=== PATIENT | female | born 1950 | race Asian ===

== ENCOUNTER 2021-08-10 12:53 | Inpatient (IN) ==
[2021-08-10] MEDS ORDERED: PANTOprazole 40 MG in SYRINGE 0 ML IV ONE (15:50)
--- NOTE | 2021-08-10 15:53 | Emergency Department Note ---
Impression & Plan Acute upper gastrointestinal bleeding, Anemia, Abnormal EKG ED Provider Note NAME: AMY ARAGON AGE: 71 SEX: F : 1950 ARRIVES VIA: Walk-In INFORMANT: Patient, the patient's family member ED PROVIDER(S): Binh Graham DO CHIEF COMPLAINT: Dizziness HPI: The patient is a 71-year-old female who presented to the emergency department for an evaluation of dizziness. The patient recently had a colonoscopy. She had an upper and lower endoscopy for work-up of anemia. The patient was scoped by her primary director [employer] 3 days ago. She started noticing dark bowel movements. Over the course the last 24 hours she started noticing worsening of the dark bowel movements as well as dizziness upon standin g. She denies having any chest pain but has had generalized weakness and some dyspnea on exertion. The patient herself denies having any lower extremity swelling or pain. She has no fever. She denies having any abdominal pain or chest pain. She called her primary director [employer] and was referred to the emergency department for further evaluation. ROS: See above HPI for pertinent positives & negatives. A total of 10 systems reviewed and were otherwise negative. PAST MEDICAL HISTORY: See Below PAST SURGICAL HISTORY: See Below FAMILY HISTORY: See Below SOCIAL HISTORY: See Below HOME MEDICATIONS: See Below ALLERGIES: See Below VITALS: See Below PHYSICAL EXAMINATION: GENERAL: Patient is awake alert in no acute distress patient is resting comfortably and showing no signs of anxiety EYES: The conjunctivae are clear. The pupils are round and reactive. EARS, NOSE, MOUTH AND THROAT: The nose is without any evidence of any deformity. Mucous membranes are moist. Tongue is midline. NECK: The neck is nontender and supple. RESPIRATORY: Normal respiratory effort is noted there is no evidence of wheezing rhonchi or rales CARDIOVASCULAR: Regular rate and rhythm noted there no murmurs rubs or gallops normal S1 normal S2. GASTROINTESTINAL: The abdomen is soft and nondistended. There is no tenderness guarding or rigidity. Rectal exam revealed dark stool which was strongly heme positive. MUSCULOSKELETAL/EXTREMITIES: There is no evidence of gross deformity full range of motion is noted in the hips and shoulders. SKIN: There is no obvious evidence of any rash. There are no petechiae, pallor or cyanosis noted. NEUROLOGIC: Patient is awake alert and oriented x3. MEDICAL DECISION MAKING: The patient is a 71-year-old female who presented to the emergency department for an evaluation of black stool. The patient recently had an upper endoscopy as well as a lower endoscopy. She did have some biopsies taken from her upper endoscopy. She started noticing black bowel movements over the course last 24 hours. She is become weak and also having some shortness of breath with exertion. The patient was evaluated by GI in the emergency department. They felt the patient may be suffering from an upper GI bleed. The patient did have black stool which was heme positive. I discussed the patient's laboratory and radiographic studies with her and her daughter. [facility] have agreed to evaluate the patient in the emergency department for further management and disposition. Triage Nursing notes reviewed. Prior medical records reviewed Vital Signs: reviewed and remarkable for no significant abnormalities Differential diagnosis: Diverticulosis, AVM, coagulopathy, colitis, inflammatory bowel disease, malignancy, Michelle-Cat tear, esophagitis, peptic ulcer disease, variceal bleed, gastritis, epistaxis, fissure, hemorrhoids, as well as other pathologies. ER treatment provided: See below Diagnostics interpreted by me: ECG: EKG was obtained in the emergency department. My interpretation is normal sinus rhythm at 67 bpm. There is no ectopy. Diffuse ST segment depressions were noted. No previous tracing was available. Cardiac Monitoring: An order was placed for continuous cardiac monitoring. The monitor shows a rate of 66 bpm with sinus rhythm. Laboratory studies: As stated above and show below. Imaging studies: See below Consultation(s): I discussed this with Maylin who [facility] They will evaluate the patient in the emergency department. Past Med/Surg History Medical History (Updated 08/10/21 @ 18:13 by Leah Hawthorne PA-C) History of anemia History of hyperlipidemia Hypertension Paroxysmal A-fib Surgical History H/O tricuspid valve repair Hx of mitral valve repair Social History Smoking Status: Never smoker Preferred Language: Armenian Feels Safe at Home: Yes Allergies Allergies Allergy/AdvReac Type Severity Reaction Status Date / Time [id number] Allergy Unknown Uncoded 05/29/05 10:08 Home Meds Home Medications Medication Instructions Recorded Confirmed amlodipine 5 mg tablet 5 mg PO QPM 08/10/21 08/10/21 aspirin 81 mg tablet,delayed 81 mg PO QPM 08/10/21 08/10/21 release calcium carbonate 600 mg (1,500 1 cap PO BID 08/10/21 08/10/21 mg)-vitamin D3 500 unit capsule (Calcium 600 with Vitamin D3) cyanocobalamin (vitamin B-12) 500 1,000 mcg PO DAILY 08/10/21 08/10/21 mcg tablet (Vitamin B-12) magnesium 100 mg tablet 100 mg PO DAILY 08/10/21 08/10/21 metoprolol succinate 25 mg 25 mg PO BID 08/10/21 08/10/21 tablet,extended release 24 hr ramipril 10 mg capsule 10 mg PO BID 08/10/21 08/10/21 Results & Data (ED) Vital Signs Vital Signs - 24 hr 08/10/21 13:22 08/10/21 16:16 08/10/21 17:00 Temperature 36.9 C Temperature Source Oral Pulse Rate 82 68 Pulse Rate [Apical] 66 Pulse Rate from SpO2 Sensor 70 Respiratory Rate 18 14 19 Respiratory Effort / Characteristics Non-Labored Respiratory Depth Normal Respiratory Pattern Regular Blood Pressure 131/88 139/86 Blood Pressure [Left Arm] 140/74 Blood Pressure Mean 102 103 Blood Pressure Mean [Left Arm] 96 Blood Pressure Position [Left Arm] Lying Pulse Oximetry 100 99 99 Oxygen Delivery Method Room Air Room Air Room Air Sepsis Recent Fever Within 48 Hours No Sepsis New/Unexplained Change in Mental Status No Sepsis Action Taken by Nursing No Action Required Home Medications Current Medication List: was personally reviewed by me Laboratory Data Attestation: I reviewed the patient's lab results. Result diagrams: 08/10/21 16:09 08/10/21 16:09 Lab Results 08/10/21 08/10/21 08/10/21 Range/Units 16: 16:09 16:09 WBC (4.8-10.8) K/uL RBC (4.2-5.4) M/uL Hgb (12.0-16.0) g/dL Hct (37-47) % MCV (80-100) fL MCH (25-34) pg MCHC (32-36) g/dL RDW Std Deviation (36.4-46.3) fL RDW Coeff of Nalini (11.5-14.5) % Plt Count (130-400) K/uL MPV (7.4-10.4) fL Immature Gran % (Auto) % Neut % (Auto) % Lymph % (Auto) % [place] % (Auto) % Eos % (Auto) % Baso % (Auto) % Neut # (Auto) (1.4-6.5) K/uL Lymph # (Auto) (1.2-3.4) K/uL [place] # (Auto) (0.11-0.59) K/uL Eos # (Auto) (0-0.5) K/uL Baso # (Auto) (0-0.2) K/uL Immature Gran # (Auto) (0.00-0.02) K/uL PT 10.3 (9.0-12.0) Seconds INR 1.0 (0.9-1.1) APTT 30.4 (21.0-31.0) Seconds PTT Ratio 1.2 Sodium 134 L (136-145) mmol/L Potassium 4.2 (3.5-5.1) mmol/L Chloride 101 (98-107) mmol/L Carbon Dioxide 27 (21-32) mmol/L Anion Gap 6.0 (3-11) BUN 14 (7-18) mg/dl Creatinine 0.59 L (0.6-1.2) mg/dl Est Cr Clr Drug Dosing 76.6 ml/min Est GFR ( Amer) 107.6 ml/min Est GFR (Non-Af Amer) 92.9 ml/min BUN/Creatinine Ratio 24.2 H (10-20) Glucose 100 H (70-99) mg/dl Calcium 9.2 (8.5-10.1) mg/dl Magnesium 2.0 (1.8-2.4) mg/dl Total Bilirubin 0.1 L (0.2-1) mg/dl AST 20 (15-37) U/L ALT 23 (12-78) U/L Alkaline Phosphatase 70 (45-117) U/L Total Protein 7.6 (6.4-8.2) gm/dl Albumin 2.9 L (3.4-5.0) gm/dl Globulin 4.7 H (2.5-4.0) gm/dl Albumin/Globulin Ratio 0.6 L (0.9-2) TSH 1.700 (0.300-4.500) uIu/ml Urine Color Urine Appearance (Clear) Urine pH (4.5-7.5) Ur Specific [place] (1.000-1.030) Urine Protein (Negative) Urine Glucose (UA) (Negative) Urine Ketones (Negative) Urine Blood (Negative) Urine Nitrite (Negative) Urine Bilirubin (Negative) Urine Urobilinogen (Negative) Ur Leukocyte Esterase (Negative) COVID-19 Eval Order SARS-CoV-2 (PCR) (Negative) Blood Type O Positive Antibody Screen NEGATIVE 08/10/21 08/10/21 08/10/21 Range/Units 16:09 16:19 16:19 WBC 5.08 (4.8-10.8) K/uL RBC 2.66 L (4.2-5.4) M/uL Hgb 8.1 L (12.0-16.0) g/dL Hct 24.6 L (37-47) % MCV 92.5 (80-100) fL MCH 30.5 (25-34) pg MCHC 32.9 (32-36) g/dL RDW Std Deviation 44.5 (36.4-46.3) fL RDW Coeff of Nalini 13.1 (11.5-14.5) % Plt Count 160 (130-400) K/uL MPV 9.7 (7.4-10.4) fL Immature Gran % (Auto) 0.2 % Neut % (Auto) 58.2 % Lymph % (Auto) 32.3 % [place] % (Auto) 7.3 % Eos % (Auto) 1.8 % Baso % (Auto) 0.2 % Neut # (Auto) 2.96 (1.4-6.5) K/uL Lymph # (Auto) 1.64 (1.2-3.4) K/uL [place] # (Auto) 0.37 (0.11-0.59) K/uL Eos # (Auto) 0.09 (0-0.5) K/uL Baso # (Auto) 0.01 (0-0.2) K/uL Immature Gran # (Auto) 0.01 (0.00-0.02) K/uL PT (9.0-12.0) Seconds INR (0.9-1.1) APTT (21.0-31.0) Seconds PTT Ratio Sodium (136-145) mmol/L Potassium (3.5-5.1) mmol/L Chloride (98-107) mmol/L Carbon Dioxide (21-32) mmol/L Anion Gap (3-11) BUN (7-18) mg/dl Creatinine (0.6-1.2) mg/dl Est Cr Clr Drug Dosing ml/min Est GFR ( Amer) ml/min Est GFR (Non-Af Amer) ml/min BUN/Creatinine Ratio (10-20) Glucose (70-99) mg/dl Calcium (8.5-10.1) mg/dl Magnesium (1.8-2.4) mg/dl Total Bilirubin (0.2-1) mg/dl AST (15-37) U/L ALT (12-78) U/L Alkaline Phosphatase (45-117) U/L Total Protein (6.4-8.2) gm/dl Albumin (3.4-5.0) gm/dl Globulin (2.5-4.0) gm/dl Albumin/Globulin Ratio (0.9-2) TSH (0.300-4.500) uIu/ml Urine Color Yellow Urine Appearance Clear (Clear) Urine pH 5.5 (4.5-7.5) Ur Specific [place] 1.006 (1.000-1.030) Urine Protein Negative (Negative) Urine Glucose (UA) Negative (Negative) Urine Ketones Negative (Negative) Urine Blood Negative (Negative) Urine Nitrite Negative (Negative) Urine Bilirubin Negative (Negative) Urine Urobilinogen Negative (Negative) Ur Leukocyte Esterase Negative (Negative) COVID-19 Eval Order Covid19 at [facility] SARS-CoV-2 (PCR) (Negative) Blood Type Antibody Screen 08/10/21 Range/Units 16:19 WBC (4.8-10.8) K/uL RBC (4.2-5.4) M/uL Hgb (12.0-16.0) g/dL Hct (37-47) % MCV (80-100) fL MCH (25-34) pg MCHC (32-36) g/dL RDW Std Deviation (36.4-46.3) fL RDW Coeff of Nalini (11.5-14.5) % Plt Count (130-400) K/uL MPV (7.4-10.4) fL Immature Gran % (Auto) % Neut % (Auto) % Lymph % (Auto) % [place] % (Auto) % Eos % (Auto) % Baso % (Auto) % Neut # (Auto) (1.4-6.5) K/uL Lymph # (Auto) (1.2-3.4) K/uL [place] # (Auto) (0.11-0.59) K/uL Eos # (Auto) (0-0.5) K/uL Baso # (Auto) (0-0.2) K/uL Immature Gran # (Auto) (0.00-0.02) K/uL PT (9.0-12.0) Seconds INR (0.9-1.1) APTT (21.0-31.0) Seconds PTT Ratio Sodium (136-145) mmol/L Potassium (3.5-5.1) mmol/L Chloride (98-107) mmol/L Carbon Dioxide (21-32) mmol/L Anion Gap (3-11) BUN (7-18) mg/dl Creatinine (0.6-1.2) mg/dl Est Cr Clr Drug Dosing ml/min Est GFR ( Amer) ml/min Est GFR (Non-Af Amer) ml/min BUN/Creatinine Ratio (10-20) Glucose (70-99) mg/dl Calcium (8.5-10.1) mg/dl Magnesium (1.8-2.4) mg/dl Total Bilirubin (0.2-1) mg/dl AST (15-37) U/L ALT (12-78) U/L Alkaline Phosphatase (45-117) U/L Total Protein (6.4-8.2) gm/dl Albumin (3.4-5.0) gm/dl Globulin (2.5-4.0) gm/dl Albumin/Globulin Ratio (0.9-2) TSH (0.300-4.500) uIu/ml Urine Color Urine Appearance (Clear) Urine pH (4.5-7.5) Ur Specific [place] (1.000-1.030) Urine Protein (Negative) Urine Glucose (UA) (Negative) Urine Ketones (Negative) Urine Blood (Negative) Urine Nitrite (Negative) Urine Bilirubin (Negative) Urine Urobilinogen (Negative) Ur Leukocyte Esterase (Negative) COVID-19 Eval Order SARS-CoV-2 (PCR) NEGATIVE (Negative) Blood Type Antibody Screen Administered Medications Discontinued Medications Pantoprazole Sodium 40 mg/ (Syringe) 10 mls @ 5 mls/min IV NOW ONE Stop: 08/10/21 15:51 Last Admin: 08/10/21 16:29 Dose: 5 mls/min Documented by: [id number] Imaging Data Radiologist's Impression: Chest X-Ray 08/10/21 15:31 XR chest 1V portable HISTORY: weakness COMPARISON: None. FINDINGS: No focal lung consolidations to suggest pneumonia. No evidence for pulmonary edema. No pleural effusions. No pneumothorax. The cardiac silhouette is moderately enlarged. Poststernotomy changes and cardiac valve prostheses are noted. IMPRESSION: Moderate enlargement of the cardiac silhouette. Otherwise, no acute process within the chest. ACT 112: Negative or not required by law. Electronically signed by: Reed Rhodes M.D. 08/10/2021 3:58 PM Discharge Plan Visit Data Chief Complaint: GI Bleed Stated Complaint: GI BLEEDING ED Provider: Binh Graham Discharge Problem: Acute upper gastrointestinal bleeding, Anemia, Abnormal EKG Patient Disposition: Admitted As Inpatient Condition: Good Discharge Instructions Interventions: ED Discharge Assessment Last Done: 08/10/21 21:08 Discharge Problem: Anemia Qualifiers: Anemia type: unspecified type Qualified Code(s): D64.9 - Anemia, unspecified
--- NOTE | 2021-08-10 15:59 | XRay Report ---
XR chest 1V portable HISTORY: weakness COMPARISON: None. FINDINGS: No focal lung consolidations to suggest pneumonia. No evidence for pulmonary edema. No pleu ral effusions. No pneumothorax. The cardiac silhouette is moderately enlarged. Poststernotomy changes and cardiac valve prostheses are noted. IMPRESSION: Moderate enlargement of the cardiac silhouette. Otherwise, no acute process within the chest. ACT 112: Negative or not required by law. Electronically signed by: Reed Rhodes M.D. 08/10/2021 3:58 PM
--- NOTE | 2021-08-10 16:16 | Gastrointestinal Consultation ---
Date of Consultation August 10, 2021 Assessment & Plan (1) Black stool: This is a 71 y/o female who recently underwent bidirectional endoscopy in evaluation of normocytic anemia; had gastric/duodenal bx; though scopes were endoscopically normal. She's had small black stools several times per day since then along with new-onset dizziness. Curently awaiting lab, imaging in the ER. Hemodynamically stable on exam with soft abd. No active GIB at present. - Check CBC, BMP - Trend H&H, transfuse PRN - Monitor and document GI output. - NPO after midnight - Would start IV PPI - If H&H has dropped, will pursue endoscopy tomorrow to evaluate for UGI source Thank you for allowing us to participate in the care of this patient. Please call with any acute changes, questions or concerns. Please see addendum below with additional recommendation from my supervising physician. Supervising Physician Co-Signing Physician Notes I performed a history and physical examination of the patient today, including specifically on physical exam - soft abdomen. I have discussed the patient's management with the advanced practitioner. Please refer to the nurse practitioner's note for the documented findings and plan of care. Melena post recent EGD, awaiting CBD to evaluate acuity. Anyway, would benefit from observation overnight. IV PPI for now. History of Present Illness Reason for Consultation: melena Requesting Physician: Dr. Graham History of Present Illness This is a 71 y/o female with with PAF, HTN, history of mitral and tricuspid valve repair, HLD and others who underwent birdirectional endoscopy on 08/07 for anemia (HGB 11, normocytic on 05/2021; had been 11 back in 2018 as well). These were endoscopically unremarkable, and pt had gastric/duodenal bx. That evening she states she had a small black mushy stool; and since then has had several small mushy black stools per day. She called our office and was directed to the ER. She's also developed dizziness when up walking around; this is new for her. Last black stool was this AM. Typically stools are brown. She is on oral iron; had stopped it prior to scopes. I can't find where iron studies had been done. Takes daily baby ASA. No other AC, no NSAIDs, tobacco or ETOH use. Currently awaiting lab, imaging studies in the ER. Denies abd pain, n/v, hematemesis, hematochezia, abd burning, cramping, CP, SOB, cough, fever, leg edema. She's been eating and drinking normally. EGD 08/07/21: - Normal upper third of esophagus, middle third of esophagus and lower third of esophagus. - Z-line regular, 40 cm from the incisors. - Normal stomach. Biopsied. - Normal examined duodenum. Biopsied. Colonoscopy 08/07/21: A tattoo was seen in the rectum. - No specimens collected. - Otherwise normal to the terminal ileum, with retroflexed views of the ascending colon and rectum. A. Duodenum, biopsy: Duodenal mucosa with mildly increased intraepithelial lymphocytes (see comment). B. Stomach, biopsy: Antral mucosa with mild chronic inflammation and mild reactive changes. Negative for H. pylori by immunohistochemistry. Comment: A. No apparent villous blunting is noted. The finding is mild and may be nonspecific, or associated with a subtle form of food/nutrition intolerance, drug reaction or other conditions. Clinical and endoscopic correlation is recommended. Allergies Allergy/AdvReac Type Severity Reaction Status Date / Time [id number] Allergy Unknown Uncoded 05/29/05 10:08 Patient History Medical History (Updated 08/10/21 @ 16:13 by Isabella Palacios PA-C) History of anemia History of hyperlipidemia Hypertension Surgical History H/O tricuspid valve repair Hx of mitral valve repair Social History Smoking Status: Never smoker Preferred Language: Salvadorean Feels Safe at Home: Yes Review of Systems Review of Systems: A complete review of systems was performed and negative except as noted in HPI. Physical Exam Constitutional: WD/WN, vitals as above Eyes: sclera anicteric Respiratory: normal respiratory effort, lungs clear to auscultation Cardiovascular: RRR, no murmur, no edema Gastrointestinal (Abdomen): normal bowel sounds, soft, nontender, no hepatosplenomegaly Skin: no rashes, warm and dry Psychiatric: A+Ox3, euthymic affect Results & Data ([facility]) Vital Signs (Past 12 Hours) Vital Signs Temp Pulse Resp BP Pulse Ox 08/10/21 13:22 36.9 C 82 18 131/88 100
[2021-08-10 16:23] LABS: Basophils # (auto) 0.01 K/uL (0-0.2); Basophils % (auto) 0.2 %; Eosinophils # (auto) 0.09 K/uL (0-0.5); Eosinophils % (auto) 1.8 %; Hematocrit (blood only) 24.6 % (37-47); Hemoglobin 8.1 g/dL (12.0-16.0); Immature Granulocytes # (auto) 0.01 K/uL (0.00-0.02); Immature Granulocytes % (auto) 0.2 %; Lymphocytes # (auto) 1.64 K/uL (1.2-3.4); Lymphocytes % (auto) 32.3 %; Mean Corpuscular Hemoglobin 30.5 pg (25-34); Mean Corpuscular Hgb Conc 32.9 g/dL (32-36); Mean Corpuscular Volume 92.5 fL (80-100); Mean Platelet Volume 9.7 fL (7.4-10.4); Monocytes # (auto) 0.37 K/uL (0.11-0.59); Monocytes % (auto) 7.3 %; Neutrophils # (auto) 2.96 K/uL (1.4-6.5); Neutrophils % (auto) 58.2 %; Platelet Count 160 K/uL (130-400); RDW Coefficient of Variation 13.1 % (11.5-14.5); RDW Standard Deviation 44.5 fL (36.4-46.3); Red Blood Count 2.66 M/uL (4.2-5.4); White Blood Count 5.08 K/uL (4.8-10.8)
[2021-08-10 16:35] LABS: Partial Thromboplastin Ratio 1.2; Partial Thromboplastin Time 30.4 Seconds (21.0-31.0); Prothrombin Time 10.3 Seconds (9.0-12.0)
[2021-08-10 16:42] LABS: Appearance Urine Clear (Clear); Bilirubin Urine Negative (Negative); Blood Urine Negative (Negative); Color Urine Yellow; Glucose Urine UA Negative (Negative); Ketones Urine Negative (Negative); Leukocyte Esterase Urine Negative (Negative); Nitrite Urine Negative (Negative); Protein Urine Negative (Negative); Specific Gravity Urine 1.006 (1.000-1.030); Urobilinogen Urine Negative (Negative); pH Urine 5.5 (4.5-7.5)
[2021-08-10 16:52] LABS: Albumin Level 2.9 gm/dl (3.4-5.0); BUN Creatinine Ratio 24.2 (10-20); Calcium 9.2 mg/dl (8.5-10.1); Creatinine Clr Calc Pharmacy 76.6 ml/min; Est GFR (African American) 107.6 ml/min; Est GFR (Non-African American) 92.9 ml/min; Potassium 4.2 mmol/L (3.5-5.1)
[2021-08-10 17:03] LABS: Albumin Globulin Ratio 0.6 (0.9-2); Bilirubin,Total 0.1 mg/dl (0.2-1); Globulin 4.7 gm/dl (2.5-4.0); Thyroid Stimulating Hormone 1.7 uIu/ml (0.300-4.500); Total Protein 7.6 gm/dl (6.4-8.2)
--- NOTE | 2021-08-10 17:54 | History & Physical Report ---
Date of Service August 10, 2021 Assessment & Plan (1) Acute upper gastrointestinal bleeding: Plan: Three days of black stools since EGD/Colonoscopy on Saturday with drop in Hgb from 11 to 8.1 with associated dizziness. - Appreciate GI input - tentative plan for EGD tomorrow but defer to their evaluation in AM - IV pantoprazole - Recheck H&H at midnight - if continuing to drop, pt may need transfusion. - NPO in anticipation of potential scope - Hold aspirin for now (2) Anemia: Plan: see plan for #1 - worsening of chronic anemia since EGD/colonoscopy - Follow labs for stability (3) Hypertension: Plan: Resume home regimen with holds and monitor closely. Plan: Pt seen and reviewed with collaborating physician, Dr. Uriarte. Plan of care discussed and as outlined above. Code Status: Full code DVT Prophylaxis: SCDs Rochelle Hawthorne PA-C History of Present Illness Chief Complaint: Black stools Primary Care Provider: Zuleima Garcia MD This is a 71 y/o female with a PMH of iron deficiency anemia, HTN, PAF, and prior tricuspid valve repair who presents to the ED today with black stools x 3 days. Three days ago, on 08/07, pt underwent EGD and Colonoscopy as part of work-up for iron deficiency anemia, which pt reports is long-standing (5 years). She was taking iron supplement until it was held for the recent procedures - she has not resumed it yet post-scopes. By Saturday night (same day of scopes), she started with small-volume semi-formed black stools, which have continued for the past three days, usually ~4x/day. No hematochezia. She denies associated abdominal pain, N/V, loss of appetite, heartburn or indigestion. She has noted new-onset dizziness since the procedure that is worse with position changes. She denies chest pain, palpitations, shortness of breath/[place], fevers, chills, sweats. EGD 08/07/21: - Normal upper third of esophagus, middle third of esophagus and lower third of esophagus. - Z-line regular, 40 cm from the incisors. - Normal stomach. Biopsied. - Normal examined duodenum. Biopsied. Colonoscopy 08/07/21: A tattoo was seen in the rectum. - No specimens collected. - Otherwise normal to the terminal ileum, with retroflexed views of the ascending colon and rectum. A. Duodenum, biopsy: Duodenal mucosa with mildly increased intraepithelial lymphocytes (see comment). B. Stomach, biopsy: Antral mucosa with mild chronic inflammation and mild reactive changes. Negative for H. pylori by immunohistochemistry. Comment: A. No apparent villous blunting is noted. The finding is mild and may be nonspecific, or associated with a subtle form of food/nutrition intolerance, drug reaction or other conditions. Clinical and endoscopic correlation is recommended. Allergies Allergy/AdvReac Type Severity Reaction Status Date / Time [id number] Allergy Unknown Uncoded 05/29/05 10:08 Home Medications Medication Instructions Recorded Confirmed Type amlodipine 5 mg tablet 5 mg PO QPM 08/10/21 08/10/21 History aspirin 81 mg tablet,delayed 81 mg PO QPM 08/10/21 08/10/21 History release calcium carbonate 600 mg (1,500 1 cap PO BID 08/10/21 08/10/21 History mg)-vitamin D3 500 unit capsule (Calcium 600 with Vitamin D3) cyanocobalamin (vitamin B-12) 500 1,000 mcg PO DAILY 08/10/21 08/10/21 History mcg tablet (Vitamin B-12) magnesium 100 mg tablet 100 mg PO DAILY 08/10/21 08/10/21 History metoprolol succinate 25 mg 25 mg PO BID 08/10/21 08/10/21 History tablet,extended release 24 hr ramipril 10 mg capsule 10 mg PO BID 08/10/21 08/10/21 History Past Med/Surg History Medical History History of anemia History of hyperlipidemia Hypertension Paroxysmal A-fib Surgical History H/O tricuspid valve repair Hx of mitral valve repair Social History Smoking Status: Never smoker Second Hand Exposure: No; Do You Dip or Chew Tobacco: No; Hx Alcohol Use: No Hx Substance Use: No Preferred Language: Tamil Communication Ability: Effective 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 Beliefs That Will Affect Care: None Current Living Situation: Family Current Living Situation Comment: Daughter and granddaughter Other Information That Helps Us Care for You: No Feels Safe at Home: Yes Safety Concerns: Feels Safe At This Time Assistive Devices: None Review of Systems Review of Systems: All systems reviewed & are unremarkable except as noted in HPI & below Constitutional: + fatigue; no fever, no chills and no anorexia Eyes: no diplopia Ear, Nose, Mouth, Throat: no nasal congestion, no nasal discharge and no sore throat Respiratory: no cough, no dyspnea, no hemoptysis and no wheezing Cardiovascular: + lightheadedness; no chest pain, no palpitations, no syncope and no edema Gastrointestinal: as per Subjective / HPI Genitourinary: no dysuria and no hematuria Musculoskeletal: no back pain and no neck pain Integumentary: no rash and no skin ulcer Neurologic: + generalized weakness, + dizziness and + headache(s) (mild intermittent); no falls Psychiatric: + anxiety; no depression Physical Exam Constitutional: + thin; no acute distress Eyes: + anicteric sclerae Neck: trachea midline Respiratory: no respiratory distress and does not use accessory muscles Auscultation: lungs clear to auscultation bilaterally and + rhonchi; no rales and no wheezes Cardiovascular: Rate/Rhythm: regular rate and regular rhythm Heart Sounds: + murmur; no gallop and no cardiac rub Vessels: dorsalis pedis pulses present and radial pulses present Extremities: no calf tenderness and no pedal edema Gastrointestinal (Abdomen): Inspection/Auscultation: normal bowel sounds; abdomen not distended Percussion/Palpation: abdomen soft; abdomen nontender and no guarding Musculoskeletal: Head/Neck/Chest: normocephalic, head atraumatic and neck supple Skin: no rashes and no jaundice Neurologic: moves all extremities; no focal motor deficits Psychiatric: A+Ox3, euthymic affect Results & Data Results & Data ([facility]) Vital Signs (Past 12 Hours) Vital Signs Temp Pulse Pulse Resp BP BP Pulse Ox 08/10/21 16:16 66 14 140/74 99 08/10/21 13:22 36.9 C 82 18 131/88 100 Laboratory Results Laboratory Results - last 24 hr 08/10/21 08/10/21 08/10/21 16:09 16:09 16:09 WBC RBC Hgb Hct MCV MCH MCHC RDW Std Deviation RDW Coeff of Nalini Plt Count MPV Immature Gran % (Auto) Neut % (Auto) Lymph % (Auto) [place] % (Auto) Eos % (Auto) Baso % (Auto) Neut # (Auto) Lymph # (Auto) [place] # (Auto) Eos # (Auto) Baso # (Auto) Immature Gran # (Auto) PT 10.3 INR 1.0 APTT 30.4 PTT Ratio 1.2 Sodium 134 L Potassium 4.2 Chloride 101 Carbon Dioxide 27 Anion Gap 6.0 BUN 14 Creatinine 0.59 L Est Cr Clr Drug Dosing 76.6 Est GFR ( Amer) 107.6 Est GFR (Non-Af Amer) 92.9 BUN/Creatinine Ratio 24.2 H Glucose 100 H Calcium 9.2 Magnesium 2.0 Total Bilirubin 0.1 L AST 20 ALT 23 Alkaline Phosphatase 70 Total Protein 7.6 Albumin 2.9 L Globulin 4.7 H Albumin/Globulin Ratio 0.6 L TSH 1.700 Urine Color Urine Appearance Urine pH Ur Specific [place] Urine Protein Urine Glucose (UA) Urine Ketones Urine Blood Urine Nitrite Urine Bilirubin Urine Urobilinogen Ur Leukocyte Esterase COVID-19 Eval Order SARS-CoV-2 (PCR) Blood Type O Positive Antibody Screen NEGATIVE 08/10/21 08/10/21 08/10/21 16:09 16:19 16:19 WBC 5.08 RBC 2.66 L Hgb 8.1 L Hct 24.6 L MCV 92.5 MCH 30.5 MCHC 32.9 RDW Std Deviation 44.5 RDW Coeff of Nalini 13.1 Plt Count 160 MPV 9.7 Immature Gran % (Auto) 0.2 Neut % (Auto) 58.2 Lymph % (Auto) 32.3 [place] % (Auto) 7.3 Eos % (Auto) 1.8 Baso % (Auto) 0.2 Neut # (Auto) 2.96 Lymph # (Auto) 1.64 [place] # (Auto) 0.37 Eos # (Auto) 0.09 Baso # (Auto) 0.01 Immature Gran # (Auto) 0.01 PT INR APTT PTT Ratio Sodium Potassium Chloride Carbon Dioxide Anion Gap BUN Creatinine Est Cr Clr Drug Dosing Est GFR ( Amer) Est GFR (Non-Af Amer) BUN/Creatinine Ratio Glucose Calcium Magnesium Total Bilirubin AST ALT Alkaline Phosphatase Total Protein Albumin Globulin Albumin/Globulin Ratio TSH Urine Color Yellow Urine Appearance Clear Urine pH 5.5 Ur Specific [place] 1.006 Urine Protein Negative Urine Glucose (UA) Negative Urine Ketones Negative Urine Blood Negative Urine Nitrite Negative Urine Bilirubin Negative Urine Urobilinogen Negative Ur Leukocyte Esterase Negative COVID-19 Eval Order Covid19 at [facility] SARS-CoV-2 (PCR) Blood Type Antibody Screen 08/10/21 16:19 WBC RBC Hgb Hct MCV MCH MCHC RDW Std Deviation RDW Coeff of Nalini Plt Count MPV Immature Gran % (Auto) Neut % (Auto) Lymph % (Auto) [place] % (Auto) Eos % (Auto) Baso % (Auto) Neut # (Auto) Lymph # (Auto) [place] # (Auto) Eos # (Auto) Baso # (Auto) Immature Gran # (Auto) PT INR APTT PTT Ratio Sodium Potassium Chloride Carbon Dioxide Anion Gap BUN Creatinine Est Cr Clr Drug Dosing Est GFR ( Amer) Est GFR (Non-Af Amer) BUN/Creatinine Ratio Glucose Calcium Magnesium Total Bilirubin AST ALT Alkaline Phosphatase Total Protein Albumin Globulin Albumin/Globulin Ratio TSH Urine Color Urine Appearance Urine pH Ur Specific [place] Urine Protein Urine Glucose (UA) Urine Ketones Urine Blood Urine Nitrite Urine Bilirubin Urine Urobilinogen Ur Leukocyte Esterase COVID-19 Eval Order SARS-CoV-2 (PCR) NEGATIVE Blood Type Antibody Screen Diagnostic Findings Chest X-ray 08/10/21 - IMPRESSION: Moderate enlargement of the cardiac silhouette. Otherwise, no acute process within the chest. Medications Administered Discontinued Medications Pantoprazole Sodium 40 mg/ (Syringe) 10 mls @ 5 mls/min IV NOW ONE Stop: 08/10/21 15:51 Last Admin: 08/10/21 16:29 Dose: 5 mls/min Documented by: [id number] Code Status & VTE Plan VTE Prophylaxis Plan VTE Prophylaxis will be ordered: Yes Supervising Physician Co-Signing Physician Notes Pt seen and examined by me, care coordinated with Rochelle Hawthorne PA-C, pls refer to her note above for further detail. Pt is a 71 y/o female w/ hx of iron deficiency anemia, HTN, PAF, and prior tricuspid valve repair who presents with black stools x 3 days, s/p EGD and colonoscopy on 08/07. She has noted new-onset dizziness since the procedure that is worse with position changes. She denies chest pain, palpitations, shortness of breath/[place], fevers, chills, sweats. Pt is laying in bed in NAD, however appears quite fatigued. She is thin, alert and able to answer questions appropriately. Lung sounds CTAB, heart sounds regular. Abdomen is soft, + bowel sounds, nontender to palpation. There is no LE edema and pt is moving extremities spontaneously. Skin is warm and dry. Pt's daughter present at the bedside and updated. Cont. IV PPI, NPO after MN, hold ASA. GI aware, possible EGD tomorrow. Cont. to closely monitor H&H and hemodynamic status. Solitario Uriarte MD (1) Anemia Anemia type: unspecified type Qualified Code(s): D64.9 - Anemia, unspecified
[2021-08-10] MEDS ORDERED: PANTOprazole 40 MG in SYRINGE 0 ML IV SCH (21:21)
[2021-08-10 21:54] LABS: Hematocrit (blood only) 23.1 % (37-47); Hemoglobin 7.8 g/dL (12.0-16.0)
[2021-08-10] MEDS: PANTOprazole 40 MG in DEXTROSE 5% 100 ML IV SCH (21:58)
[2021-08-10] MEDS: METOPROLOL SUCC 25MG EXT REL TAB PO SCH (23:04)
[2021-08-10] MEDS: amLODIPine BESYLATE 5 MG TAB PO SCH (23:05)
[2021-08-11] LABS: Hematocrit (blood only) 22.4 % (37-47); Hemoglobin 7.6 g/dL (12.0-16.0)
[2021-08-11] MEDS ORDERED: SODIUM CHLORIDE 0.9% 250 ML IV PRN (02:16)
[2021-08-11] MEDS: PANTOprazole 40 MG in DEXTROSE 5% 100 ML IV SCH ×5 (02:44→22:05)
[2021-08-11] MEDS ORDERED: FUROSEMIDE 20 MG in SYRINGE 0 ML IV ONE (06:00)
[2021-08-11] MEDS: ENALAPRIL MALEATE 10 MG TAB PO SCH (08:17)
[2021-08-11] MEDS: METOPROLOL SUCC 25MG EXT REL TAB PO SCH ×2 (08:18→20:04)
--- NOTE | 2021-08-11 09:50 | Electrocardiogram Report ---
Test Reason : Blood Pressure : / mmHG Vent. Rate : 067 BPM Atrial Rate : 067 BPM P-R Int : 208 ms QRS Dur : 094 ms QT Int : 458 ms P-R-T Axes : 068 033 014 degrees QTc Int : 483 ms Normal sinus rhythm with sinus arrhythmia Nonspecific ST and T wave abnormality Prolonged QT Abnormal ECG No previous ECGs available Confirmed by Binh Young ([id number]) on 08/11/2021 9:50:25 AM Referred By: REFERRED SELF Confirmed By:Binh Young
--- NOTE | 2021-08-11 12:18 | Gastroenterology Progress Note ---
Date of Service August 11, 2021 Assessment & Plan (1) Black stool: Plan: 71 y/o female who recently underwent bidirectional endoscopy in evaluation of normocytic anemia; had gastric/duodenal bx; though scopes were endoscopically normal. She's had small black stools several times per day since then along with new-onset dizziness. HGB 7.6 s/p RBC x 2 unit, no further passage of black stools - NPO for EGD this AM - Trend HGB - Monitor and document GI output. - Transfuse PRN - Continue IV PPI Thank you for allowing us to participate in the care of this patient. Please call with any acute changes, questions or concerns. Please see addendum below with additional recommendation from my supervising physician. Admission and Anticipated Discharge Date Admission Date: August 10, 2021 Supervising Physician Co-Signing Physician Notes I performed a history and physical examination of the patient today, including specifically on physical exam - soft abdomen. I have discussed the patient's management with the advanced practitioner. Please refer to the nurse practitioner's note for the documented findings and plan of care. Subjective No concerns this AM s/p RBC x 2 units No repeat labs obtained this AM No abd pain No nausea, vomiting voiding but no BM since admission denies cp , sob Review of Systems Review of Systems: All systems reviewed & are unremarkable except as noted in HPI & below Physical Exam Constitutional: WD/WN, vitals as above Eyes: + anicteric sclerae and PERRL; no scleral abnormality Neck: trachea midline, no thyromegaly Respiratory: normal respiratory effort, able to speak in complete sentences and + abnormal respiratory pattern; no respiratory distress, no labored breathing, does not use accessory muscles, no cough, no audible wheezes, no grunting, no nasal flaring and no tripod positioning Cardiovascular: Rate/Rhythm: regular rate and regular rhythm Gastrointestinal (Abdomen): Inspection/Auscultation: abdomen normal to inspection; abdomen not distended and no significant pannus Percussion/Palpation: abdomen soft; abdomen nontender, no guarding and abdomen not rigid Skin: no rashes, warm and dry Results & Data ([facility]) Vital Signs (Past 12 Hours) Vital Signs Temp Pulse Pulse Pulse Resp BP BP 08/11/21 11:19 36.8 C 75 18 105/67 08/11/21 10:36 36.9 C 80 12 129/83 08/11/21 09:55 36.7 C 76 18 114/72 08/11/21 08:43 36.9 C 74 15 116/78 08/11/21 08:13 36.7 C 68 14 116/80 08/11/21 08:00 36.8 C 60 12 111/76 08/11/21 07:57 72 08/11/21 07:39 36.8 C 74 16 116/76 08/11/21 07:35 36.8 C 77 16 116/78 08/11/21 06:57 36.8 C 74 18 127/81 08/11/21 06:09 36.8 C 74 18 127/81 08/11/21 05:09 36.6 C 70 18 125/80 08/11/21 04:51 75 08/11/21 04:39 36.7 C 75 18 123/76 08/11/21 04:34 36.9 C 70 16 129/79 08/11/21 04:24 36.9 C 72 16 129/79 08/11/21 04:06 36.9 C 78 20 133/80 08/11/21 03:04 36.8 C 76 16 119/46 L 08/11/21 02:18 37.0 C 77 18 162/91 H Pulse Ox 08/11/21 11:19 97 08/11/21 10:36 100 08/11/21 09:55 97 08/11/21 08:43 98 08/11/21 08:13 100 08/11/21 08:00 98 08/11/21 07:57 08/11/21 07:39 98 08/11/21 07:35 99 08/11/21 06:57 100 08/11/21 06:09 100 08/11/21 05:09 65 L 08/11/21 04:51 08/11/21 04:39 100 08/11/21 04:34 98 08/11/21 04:24 100 08/11/21 04:06 99 08/11/21 03:04 98 08/11/21 02:18 99
--- NOTE | 2021-08-11 13:23 | Anesthesiology Consultation ---
Date of Service August 11, 2021 Assessment & Plan Chart Review Chart Review: Acceptable Risk for Surgery and Patient NOT seen in Pre Admission Testing Consults Requested none ASA ASA4 Proposed Anesthesia Anesthesia Type: MAC Risk / Benefits Reviewed With: PT / POA / Parent / Guardian, Accepts Plan and Informed Consent Obtained Additional Comments: covid test neg. History Surgery Operation Date: 08/11/21 17:00 Proposed Procedures p Esophagogastroduodenoscopy Dr Antonio - Ankur Antonio MD Height/Weight Height: 5 ft 4 in Weight: 60.3 kg Allergies Allergy/AdvReac Type Severity Reaction Status Date / Time [id number] Allergy Unknown Uncoded 05/29/05 10:08 Medications Home Medications Medication Instructions Recorded Confirmed Last Taken amlodipine 5 mg tablet 5 mg PO QPM 08/10/21 08/10/21 Unknown aspirin 81 mg tablet,delayed 81 mg PO QPM 08/10/21 08/10/21 Unknown release calcium carbonate 600 mg (1,500 1 cap PO BID 08/10/21 08/10/21 Unknown mg)-vitamin D3 500 unit capsule (Calcium 600 with Vitamin D3) cyanocobalamin (vitamin B-12) 500 1,000 mcg PO DAILY 08/10/21 08/10/21 Unknown mcg tablet (Vitamin B-12) magnesium 100 mg tablet 100 mg PO DAILY 08/10/21 08/10/21 Unknown metoprolol succinate 25 mg 25 mg PO BID 08/10/21 08/10/21 08/10/21 09:00 tablet,extended release 24 hr ramipril 10 mg capsule 10 mg PO BID 08/10/21 08/10/21 08/10/21 09:00 Active Medications Generic Name Dose Route Start Last Admin Trade Name Abisaiq PRN Reason Stop Dose Admin Amlodipine Besylate 5 mg 08/10/21 21:30 08/10/21 23:05 Amlodipine Besylate 5 Mg Tab PO 09/09/21 21:29 5 mg QPM JAIME Administration Enalapril Maleate 40 mg 08/11/21 09:00 08/11/21 08:17 Enalapril Maleate 10 Mg Tab PO 09/10/21 08:59 40 mg DAILY JAIME Administration Protocol Pantoprazole Sodium 40 mg/ 100 mls @ 20 mls/hr 08/10/21 20:30 08/11/21 13:04 Dextrose IV 09/09/21 20:29 0 mg/hr Q5H JAIME 0 mls/hr Infusion 8 MG/HR Metoprolol Succinate 25 mg 08/10/21 21:30 08/11/21 08:18 Metoprolol Succ 25mg Ext Rel Tab PO 09/09/21 21:29 25 mg BID JAIME Administration NPO Date Last Intake of Fluids: 08/11/21 Time Last Intake of Fluids: 08:00 Last Intake of Fluids Comment: SIP OF WATER WITH A PILL Date Last Intake of Solids: 08/10/21 Time Last Intake of Solids: 12:00 Past Medical History Medical History History of anemia History of hyperlipidemia Hypertension Paroxysmal A-fib Exercise / Class Metabolic Activity III < 4 Walking/Shop/Light housework Past Surgical History Surgical History H/O tricuspid valve repair Hx of mitral valve repair Past Anesthesia History No Hx of Anesthesia Complications and No Family Hx of Anesthesia Complications History of PONV No Hx of PONV and No Hx of Motion Sickness Social History Smoking Status: Never smoker Do You Dip or Chew Tobacco: No Hx Alcohol Use: No Hx Substance Use: No Physical Exam Vital Signs Last Vital Signs Temp 36.9 C 08/11/21 12:52 Pulse 18 L 08/11/21 12:52 Resp 18 08/11/21 12:52 BP 147/93 H 08/11/21 12:57 Pulse Ox 99 08/11/21 12:52 Constitutional not cachectic ENMT Mouth: no dentition abnormality Thyromental Distance: < 3.5 Finger Breadths Mallampati Class: II Neck normal visual inspection and trachea midline; neck extension not limited Respiratory normal respiratory effort Auscultation: lungs clear to auscultation bilaterally Cardiovascular Rate/Rhythm: regular rate and regular rhythm Heart Sounds: no murmur Vessels: no carotid bruit Musculoskeletal Spine: normal cervical ROM Neurologic moves all extremities Motor/Sensory: no sensory deficit Psychiatric Orientation: alert and oriented x 3 Testing Laboratory Results 08/10/21 23:49 08/10/21 16:09 PT 10.3 Seconds (9.0-12.0) 08/10/21 16:09 INR 1.0 (0.9-1.1) 08/10/21 16:09 APTT 30.4 Seconds (21.0-31.0) 08/10/21 16:09 Urine Color Yellow 08/10/21 16:19 Urine Appearance Clear (Clear) 08/10/21 16:19 Urine pH 5.5 (4.5-7.5) 08/10/21 16:19 Ur Specific [place] 1.006 (1.000-1.030) 08/10/21 16:19 Urine Protein Negative (Negative) 08/10/21 16:19 Urine Glucose (UA) Negative (Negative) 08/10/21 16:19 Urine Ketones Negative (Negative) 08/10/21 16:19 Urine Nitrite Negative (Negative) 08/10/21 16:19 Ur Leukocyte Esterase Negative (Negative) 08/10/21 16:19 Blood Type O Positive 08/10/21 16:09 Antibody Screen NEGATIVE 08/10/21 16:09 Electrocardiogram Date: 08/10/21 Findings: + NSR @ (at 68 w/SA Prolonged QT) and + NSST changes Chest X-Ray Date: 08/10/21 Findings: + NAD and + cardiomegaly (mod.)
[2021-08-11] MEDS ORDERED: ePHEDrine sulfate 50 MG/ML AMP IV PRN (13:25)
[2021-08-11] MEDS ORDERED: ATROPINE SULFATE 0.1 MG/ML 10ML SYR IV PRN (13:25)
--- NOTE | 2021-08-11 13:32 | History & Physical Bridge Note ---
Date of Service August 11, 2021 History & Physical Bridge Note I have examined the patient, reviewed the History & Physical and in the interval since the performance of the History & Physical I have noted the following changes of clinical significance: no changes noted EGD today
[2021-08-11] MEDS ORDERED: PROPOFOL IV EMULSION 10 MG/ML 20 ML VIAL IV ONE ×2 (13:35→14:19)
[2021-08-11] MEDS ORDERED: LIDOCAINE 2% 2 ML VIAL/AMP(20MG/ML) INFIL ONE (13:35)
--- NOTE | 2021-08-11 14:24 | Anesthesiology Progress Note ---
Date of Service August 11, 2021 Anesthesia Post Procedure Vital Signs Vital Signs: Temp Pulse Pulse Pulse Resp BP BP 08/11/21 12:57 147/93 H 08/11/21 12:52 36.9 C 18 L 79 18 143/106 H 08/11/21 11:19 36.8 C 75 18 105/67 08/11/21 10:36 36.9 C 80 12 129/83 08/11/21 09:55 36.7 C 76 18 114/72 08/11/21 08:43 36.9 C 74 15 116/78 08/11/21 08:13 36.7 C 68 14 116/80 08/11/21 08:00 36.8 C 60 12 111/76 08/11/21 07:57 72 08/11/21 07:39 36.8 C 74 16 116/76 08/11/21 07:35 36.8 C 77 16 116/78 08/11/21 06:57 36.8 C 74 18 127/81 08/11/21 06:09 36.8 C 74 18 127/81 08/11/21 05:09 36.6 C 70 18 125/80 08/11/21 04:51 75 08/11/21 04:39 36.7 C 75 18 123/76 08/11/21 04:34 36.9 C 70 16 129/79 08/11/21 04:24 36.9 C 72 16 129/79 08/11/21 04:06 36.9 C 78 20 133/80 08/11/21 03:04 36.8 C 76 16 119/46 L 08/11/21 02:18 37.0 C 77 18 162/91 H 08/10/21 23:03 37.0 C 72 18 118/73 08/10/21 20:00 74 9 L 125/84 08/10/21 19:00 72 19 123/74 08/10/21 18:00 69 17 136/88 08/10/21 17:00 68 19 139/86 08/10/21 16:16 66 14 140/74 Pulse Ox 08/11/21 12:57 08/11/21 12:52 99 08/11/21 11:19 97 08/11/21 10:36 100 08/11/21 09:55 97 08/11/21 08:43 98 08/11/21 08:13 100 08/11/21 08:00 98 08/11/21 07:57 08/11/21 07:39 98 08/11/21 07:35 99 08/11/21 06:57 100 08/11/21 06:09 100 08/11/21 05:09 65 L 08/11/21 04:51 08/11/21 04:39 100 08/11/21 04:34 98 08/11/21 04:24 100 08/11/21 04:06 99 08/11/21 03:04 98 08/11/21 02:18 99 08/10/21 23:03 96 08/10/21 20:00 99 08/10/21 19:00 100 08/10/21 18:00 08/10/21 17:00 99 08/10/21 16:16 99 Transfer of Care Handoff Completed per policy Notes Mental Status: alert / awake / arousable Patient Amnestic to Procedure: Yes Nausea / Vomiting: adequately controlled Pain: adequately controlled Airway Patency, RR, SpO2: stable & adequate BP & HR: stable & adequate Hydration State: stable & adequate Anesthetic Complications: no major complications apparent
--- NOTE | 2021-08-11 14:52 | GI REPORT ---
Patient Name: Hanh Roman Procedure Date: 08/11/2021 1:24 PM Date of : 1950 Admit Type: Inpatient Age: 71 Gender: Female Attending MD: Ankur Antonio MD Procedure: Upper GI endoscopy Providers: Ankur Antonio MD Referring MD: Mario Uriarte Md Indications: Melena Medicines: Propofol per Anesthesia Complications: No immediate complications. Estimated Blood Loss: Estimated blood loss: none. Procedure: Pre-Anesthesia Assessment: - Prior to the procedure, a History and Physical was performed, and patient medications, allergies and sensitivities were reviewed. The patient's tolerance of previous anesthesia was reviewed. - The risks and benefits of the procedure and the sedation options and risks were discussed with the patient. All questions were answered and informed consent was obtained. - Patient identification and proposed procedure were verified prior to the procedure by the physician and the nurse. The procedure was verified in the procedure room. - Pre-procedure physical examination revealed no contraindications to sedation. After obtaining informed consent, the endoscope was passed under direct vision. Throughout the procedure, the patient's blood pressure, pulse, and oxygen saturations were monitored continuously. The Endoscope was introduced through the mouth, and advanced to the second part of duodenum. The upper GI endoscopy was accomplished without difficulty. The patient tolerated the procedure well. Findings: The examined esophagus was normal. A few small erosions with no bleeding and no stigmata of recent bleeding were found in the gastric body and in the gastric antrum. One oozing cratered duodenal ulcer with a visible vessel and an adehernt clot was found in the second portion of the duodenum related to prior biopsies. The lesion was 10 mm in largest dimension. Area was successfully injected with 4 mL of a 1:10,000 solution of epinephrine for hemostasis. Coagulation for hemostasis using bipolar probe was successful. Despite coagulation, there was minimal oozing hence decision made to place a Padlock clip. One Padlock clip was successfully placed (MR conditional). There was no bleeding at the end of the procedure. Impression: - Normal esophagus. - Post biopsy erosive gastropathy with no bleeding and no stigmata of recent bleeding. - Post biopsy oozing duodenal ulcer with a visible vessel. Injected with Epi. Treated with bipolar cautery. One Padlock clip was placed. Hemostasis achieved. Recommendation: - Return patient to [facility] care. - Clear liquid diet today. - No aspirin, ibuprofen, naproxen, or other non-steroidal anti-inflammatory drugs for 5 days. - Use a proton pump inhibitor IV for 2 days then PO BID for 2 months.. Ankur Antonio MD 08/11/2021 2:51:46 PM This report has been signed electronically. Note Initiated On: 08/11/2021 1:24 PM Number of Addenda: 0 I attest to the content of the Intraoperative Record and orders documented therein, exceptions below {[id number]}
--- NOTE | 2021-08-11 17:23 | Hospitalist Progress Note ---
Date of Service August 11, 2021 Assessment & Plan (1) Acute upper gastrointestinal bleeding: Plan: Three days of black stools since EGD/Colonoscopy on Saturday with drop in Hgb from 11 to 8.1 with associated dizziness. - Appreciate GI input - now s/p EGD w/ hemostasis (08/11/21) Impression: - Normal esophagus. - Post biopsy erosive gastropathy with no bleeding and no stigmata of recent bleeding. - Post biopsy oozing duodenal ulcer with a visible vessel. Injected with Epi. Treated with bipolary cautery. One Padlock clip was placed. Hemostasis achieved. Recommendation: - Return patient to [facility] for ongoing care. - Clear liquid diet today. - No aspirin, ibuprofen, naproxen, or other non-steroidal anti-inflammatory drugs for 5 days. - Use a proton pump inhibitor IV for 2 days then PO BID for 2 months.. - IV pantoprazole - Monitor H&H - if continuing to drop, pt may need transfusion. - Hold aspirin for now (2) Anemia: Plan: see plan for #1 - worsening of chronic anemia since EGD/colonoscopy - Follow labs for stability (3) Hypertension: Plan: Resume home regimen with holds and monitor closely. Plan: Code Status: Full code DVT Prophylaxis: SCDs Admission and Anticipated Discharge Date Admission Date: August 10, 2021 Subjective Patient seen in follow-up of acute blood loss anemia, GI bleed Underwent EGD with hemostasis earlier today. Currently sitting up in bed in NAD, feeling well No chest pain, shortness of breath, abd. pain, no dizziness or lightheadedness Review of Systems Review of Systems: All systems reviewed & are unremarkable except as noted in Subjective Physical Exam Physical Exam: Constitutional: + thin F; no acute distress Eyes: + anicteric sclerae, EOMI, PERRL Neck: supple Respiratory: no respiratory distress, lungs clear to auscultation bilaterally, no rhonchi, rales and no wheezes Cardiovascular: Rate/Rhythm: regular rate and regular rhythm Heart Sounds: + murmur; no gallop Extremities: no calf tenderness and no pedal edema Gastrointestinal (Abdomen): normal bowel sounds; abdomen not distended Percussion/Palpation: abdomen soft; abdomen nontender and no guarding Musculoskeletal: Head/Neck/Chest: normocephalic, head atraumatic and neck supple Skin: no rashes and no jaundice Neurologic: moves all extremities; speech fluent, no facial asymmetry Psychiatric: A+Ox3, euthymic affect Results & Data Results & Data ([facility]) Vital Signs (Past 12 Hours) Vital Signs Temp Pulse Pulse Pulse Resp BP BP 08/11/21 15:42 36.7 C 66 18 144/83 H 08/11/21 14:54 72 16 178/91 H 08/11/21 14:39 76 16 174/112 H 08/11/21 14:24 77 16 160/88 H 08/11/21 12:57 147/93 H 08/11/21 12:52 36.9 C 18 L 79 18 143/106 H 08/11/21 11:19 36.8 C 75 18 105/67 08/11/21 10:36 36.9 C 80 12 129/83 08/11/21 09:55 36.7 C 76 18 114/72 08/11/21 08:43 36.9 C 74 15 116/78 08/11/21 08:13 36.7 C 68 14 116/80 08/11/21 08:00 36.8 C 60 12 111/76 08/11/21 07:57 72 08/11/21 07:39 36.8 C 74 16 116/76 08/11/21 07:35 36.8 C 77 16 116/78 08/11/21 06:57 36.8 C 74 18 127/81 08/11/21 06:09 36.8 C 74 18 127/81 Pulse Ox 08/11/21 15:42 96 08/11/21 14:54 98 08/11/21 14:39 99 08/11/21 14:24 100 08/11/21 12:57 08/11/21 12:52 99 08/11/21 11:19 97 08/11/21 10:36 100 08/11/21 09:55 97 08/11/21 08:43 98 08/11/21 08:13 100 08/11/21 08:00 98 08/11/21 07:57 08/11/21 07:39 98 08/11/21 07:35 99 08/11/21 06:57 100 08/11/21 06:09 100 Laboratory Results 08/10/21 08/10/21 08/10/21 Range/Units 23:49 23:49 21:31 Hgb 7.6 L 7.8 L (12.0-16.0) g/dL Hct 22.4 L 23.1 L (37-47) % SARS-CoV-2 (PCR) (Negative) Blood Type Blood Type Recheck O Positive Antibody Screen Crossmatch 08/10/21 08/10/21 Range/Units 16:19 16:09 Hgb (12.0-16.0) g/dL Hct (37-47) % SARS-CoV-2 (PCR) NEGATIVE (Negative) Blood Type O Positive Blood Type Recheck Antibody Screen NEGATIVE Crossmatch See Detail Medications Administered Current Inpatient Medications Amlodipine Besylate (Amlodipine Besylate 5 Mg Tab) 5 mg PO QPM JAIME Stop: 09/09/21 21:29 Last Admin: 08/10/21 23:05 Dose: 5 mg Documented by: Atropine Sulfate (Atropine Sulfate 0.1 Mg/Ml 10ml Syr) 0.5 mg IV Q1M PRN PRN Reason: PACU Use-HR<40 &/or Bradycardi Stop: 08/11/21 21:25 Enalapril Maleate (Enalapril Maleate 10 Mg Tab) 40 mg PO DAILY JAIME; Protocol Stop: 09/10/21 08:59 Last Admin: 08/11/21 08:17 Dose: 40 mg Documented by: Ephedrine Sulfate (Ephedrine Sulfate 50 Mg/Ml Amp) 5 mg IV Q5M PRN PRN Reason: PACU Use Only-SBP<90 mmHg Stop: 08/11/21 21:25 Pantoprazole Sodium 40 mg/ (Dextrose) 100 mls @ 20 mls/hr IV Q5H JAIME Stop: 09/09/21 20:29 Last Admin: 08/11/21 15:31 Dose: 8 mg/hr, 20 mls/hr Documented by: Metoprolol Succinate (Metoprolol Succ 25mg Ext Rel Tab) 25 mg PO BID [facility] Stop: 09/09/21 21:29 Last Admin: 08/11/21 08:18 Dose: 25 mg Documented by: (1) Anemia Anemia type: unspecified type Qualified Code(s): D64.9 - Anemia, unspecified
[2021-08-11 17:28] LABS: Hematocrit (blood only) 29.8 % (37-47); Hemoglobin 10.1 g/dL (12.0-16.0)
[2021-08-11 17:58] LABS: BUN Creatinine Ratio 19.1 (10-20); Calcium 9.2 mg/dl (8.5-10.1); Creatinine Clr Calc Pharmacy 65.5 ml/min; Est GFR (African American) 102.2 ml/min; Est GFR (Non-African American) 88.2 ml/min; Potassium 3.4 mmol/L (3.5-5.1)
[2021-08-11] MEDS: amLODIPine BESYLATE 5 MG TAB PO SCH (20:03)
[2021-08-11 21:40] LABS: Hematocrit (blood only) 29.4 % (37-47); Hemoglobin 9.8 g/dL (12.0-16.0)
[2021-08-12] MEDS: PANTOprazole 40 MG in DEXTROSE 5% 100 ML IV SCH ×4 (03:22→21:28)
[2021-08-12 08:29] LABS: Hematocrit (blood only) 30.4 % (37-47); Hemoglobin 10.1 g/dL (12.0-16.0)
[2021-08-12] MEDS: ENALAPRIL MALEATE 10 MG TAB PO SCH (08:31)
[2021-08-12] MEDS: METOPROLOL SUCC 25MG EXT REL TAB PO SCH ×2 (08:32→21:01)
[2021-08-12 09:32] LABS: BUN Creatinine Ratio 14.9 (10-20); Calcium 8.9 mg/dl (8.5-10.1); Creatinine Clr Calc Pharmacy 71.8 ml/min; Est GFR (African American) 105.3 ml/min; Est GFR (Non-African American) 90.9 ml/min; Potassium 3.7 mmol/L (3.5-5.1)
[2021-08-12] MEDS ORDERED: PANTOprazole 40 MG TAB PO SCH (11:30)
--- NOTE | 2021-08-12 11:38 | Gastroenterology Progress Note ---
Date of Service August 12, 2021 Assessment & Plan (1) Acute upper gastrointestinal bleeding: Plan: Patient with upper gastrointestinal bleeding from a duodenal ulcer status post therapy with placement of a padlock clip. It does not appear that any further bleeding has occurred overnight. Would recommend continued Protonix drip for another 24 hours. Would also suggest advancing the patient to a full liquid diet today. If the patient has recurrent bleeding she would need to be referred to a tertiary center with interventional radiology capabilities. Admission and Anticipated Discharge Date Admission Date: August 10, 2021 Subjective The patient underwent for endoscopy yesterday with endoscopic therapy that included placement of a padlock clip. She was found to have a duodenal ulcer with evidence of active bleeding. It appears that there is been no evidence of recurrent bleeding overnight. Review of Systems Constitutional: no sweats and no malaise Respiratory: no change in sputum and no hemoptysis Cardiovascular: no chest pain with activity and no dyspnea at rest Physical Exam Eyes: PERRL, conjunctivae normal, anicteric sclerae ENMT: external ear and nose normal, oropharynx normal Neck: trachea midline, no thyromegaly Respiratory: normal respiratory effort, lungs clear to auscultation Cardiovascular: Heart Sounds: no murmur Gastrointestinal (Abdomen): normal bowel sounds, soft, nontender, no hepatosplenomegaly Results & Data ([facility]) Vital Signs (Past 12 Hours) Vital Signs Temp Pulse Pulse Resp BP BP Pulse Ox 08/12/21 11:34 36.7 C 71 18 116/78 100 08/12/21 08:00 36.5 C 78 18 123/81 99 08/12/21 03:39 36.7 C 60 18 113/68 99 08/12/21 00:42 77 Laboratory Results Laboratory Results - last 24 hr 08/11/21 08/11/21 08/11/21 17:01 17:01 21:09 Hgb 10.1 L 9.8 L Hct 29.8 L 29.4 L Sodium 135 L Potassium 3.4 L D Chloride 101 Carbon Dioxide 27 Anion Gap 7.0 BUN 13 Creatinine 0.69 Est Cr Clr Drug Dosing 65.5 Est GFR ( Amer) 102.2 Est GFR (Non-Af Amer) 88.2 BUN/Creatinine Ratio 19.1 Glucose 135 H Calcium 9.2 08/12/21 08/12/21 08:14 08:14 Hgb 10.1 L Hct 30.4 L Sodium 136 Potassium 3.7 Chloride 102 Carbon Dioxide 30 Anion Gap 4.0 BUN 9 Creatinine 0.63 Est Cr Clr Drug Dosing 71.8 Est GFR ( Amer) 105.3 Est GFR (Non-Af Amer) 90.9 BUN/Creatinine Ratio 14.9 Glucose 109 H Calcium 8.9
--- NOTE | 2021-08-12 16:45 | Hospitalist Progress Note ---
Date of Service August 12, 2021 Assessment & Plan (1) Acute upper gastrointestinal bleeding: Plan: Acute gastrointestinal bleeding --S/P : Normal esophagus. Post biopsy erosive gastropathy with no bleeding and no stigmata of recent bleeding. Post biopsy oozing duodenal ulcer with a visible vessel. Injected with Epi. Treated with bipolar cautery. One Padlock clip was placed. Hemostasis achieved. --Avoid Aspirin, NSAIDs for 5 days -Continue PPI drip for today - Appreciate GI input Monitor H&h Plan to transition to p.o. Protonix twice a day for 2 months Needs follow-up with GI upon discharge (2) Anemia: Plan: Management as above Monitor (3) Hypertension: Plan: Continue home medications Monitor Plan: DVT Px:SCDs CODE STATUS Full code Disposition Expect to discharge home Admission and Anticipated Discharge Date Admission Date: August 10, 2021 Subjective Patient is seen and examined at bedside Denies any recurrence of bleeding Tolerating diet Denies chest pain, dyspnea, dizziness, nausea, abdominal pain HB status Review of Systems Review of Systems: All systems reviewed & are unremarkable except as noted in Subjective Physical Exam Physical Exam: Physical Exam: Vitals signs as noted above General Appearance:Moderately built and nourished, no apparent distress Head: normocephalic, Atraumatic Eyes: normal inspection, EOMI Neck: supple, Trachea midline Respiratory/Chest: Normal breath sounds, CTA, No accessory muscle use Cardiovascular: S1, S2, No murmur Abdomen/GI:Soft, Non tender, Bowel sounds present Extremities/Musculoskeletal:normal inspection, no edema Neurologic/Psych:AAOX3, grossly no focal neurological deficits Skin: normal color, warm Results & Data Results & Data ([facility]) Vital Signs (Past 12 Hours) Vital Signs Temp Pulse Pulse Resp BP Pulse Ox 08/12/21 16:25 83 08/12/21 16:16 36.6 C 75 16 120/73 97 08/12/21 11:34 36.7 C 74 71 18 116/78 100 08/12/21 08:00 36.5 C 78 18 123/81 99 Laboratory Results Short CBC 08/11/21 08/11/21 08/12/21 Range/Units 17:01 21:09 08:14 Hgb 10.1 L 9.8 L 10.1 L (12.0-16.0) g/dL Hct 29.8 L 29.4 L 30.4 L (37-47) % BMP 08/11/21 08/12/21 17:01 08:14 Sodium 135 L 136 Potassium 3.4 L D 3.7 Chloride 101 102 Carbon Dioxide 27 30 BUN 13 9 Creatinine 0.69 0.63 Glucose 135 H 109 H Calcium 9.2 8.9 (1) Anemia Anemia type: unspecified type Qualified Code(s): D64.9 - Anemia, unspecified
[2021-08-12 19:50] LABS: Hematocrit (blood only) 27.1 % (37-47); Hemoglobin 9.1 g/dL (12.0-16.0)
[2021-08-12] MEDS: amLODIPine BESYLATE 5 MG TAB PO SCH (21:02)
[2021-08-13] MEDS: PANTOprazole 40 MG in DEXTROSE 5% 100 ML IV SCH ×2 (01:35→06:48)
[2021-08-13] MEDS: METOPROLOL SUCC 25MG EXT REL TAB PO SCH (08:12)
[2021-08-13] MEDS: ENALAPRIL MALEATE 10 MG TAB PO SCH (08:12)
[2021-08-13 08:29] LABS: Hematocrit (blood only) 28.8 % (37-47); Hemoglobin 9.6 g/dL (12.0-16.0)
--- NOTE | 2021-08-13 09:03 | Gastroenterology Progress Note ---
Date of Service August 13, 2021 Assessment & Plan (1) Acute upper gastrointestinal bleeding: Plan: Patient with a history of gastrointestinal bleeding from duodenal ulcer. She seems to have responded well to Endo-therapy without evidence of recurrent bleeding. Recommendations Advance diet as tolerated Repeat upper endoscopy in 3 months Would suggest an iron supplement 1 time daily for 8 to 12 weeks Protonix or omeprazole 40 mg/day as outpatient Please call with any questions or concerns, GI to sign off Admission and Anticipated Discharge Date Admission Date: August 10, 2021 Subjective The patient underwent upper endoscopy on Saturday and was found to have a duodenal bulb ulcer with high risk stigmata. This was treated with and over the scope clips. There was no report of bleeding overnight and the patient is tolerating a liquid diet. Review of Systems Respiratory: no change in sputum and no hemoptysis Cardiovascular: no chest pain with activity Gastrointestinal: no abdominal pain, no bloating and no nausea Physical Exam Constitutional: WD/WN, vitals as above Eyes: PERRL, conjunctivae normal, anicteric sclerae Neck: trachea midline, no thyromegaly Respiratory: normal respiratory effort, lungs clear to auscultation Cardiovascular: RRR, no murmur, no edema Gastrointestinal (Abdomen): normal bowel sounds, soft, nontender, no hepatosplenomegaly Results & Data ([facility]) Vital Signs (Past 12 Hours) Vital Signs Temp Pulse Pulse Resp BP BP Pulse Ox 08/13/21 07:33 36.8 C 69 18 128/84 97 08/13/21 04:48 36.9 C 77 19 124/80 99 08/12/21 22:16 66 Laboratory Results Laboratory Results - last 24 hr 08/12/21 08/12/21 08/13/21 08:14 19:41 07:06 Hgb 9.1 L 9.6 L Hct 27.1 L 28.8 L Sodium 136 Potassium 3.7 Chloride 102 Carbon Dioxide 30 Anion Gap 4.0 BUN 9 Creatinine 0.63 Est Cr Clr Drug Dosing 71.8 Est GFR ( Amer) 105.3 Est GFR (Non-Af Amer) 90.9 BUN/Creatinine Ratio 14.9 Glucose 109 H Calcium 8.9
--- NOTE | 2021-08-13 12:35 | Hospitalist Progress Note ---
Date of Service August 13, 2021 Assessment & Plan (1) Acute upper gastrointestinal bleeding: Plan: Acute gastrointestinal bleeding --S/P : Normal esophagus. Post biopsy erosive gastropathy with no bleeding and no stigmata of recent bleeding. Post biopsy oozing duodenal ulcer with a visible vessel. Injected with Epi. Treated with bipolar cautery. One Padlock clip was placed. Hemostasis achieved. --Avoid Aspirin, NSAIDs for 5 days -Continue PPI drip >>Transitioned to PO Protonix - Appreciate GI input Monitor H&h Plan to transition to p.o. Protonix twice a day for 2 months Needs follow-up with GI upon discharge Hb stable (2) Anemia: Plan: Management as above Monitor (3) Hypertension: Plan: Continue home medications Monitor Plan: DVT Px:SCDs CODE STATUS Full code Disposition Home Admission and Anticipated Discharge Date Admission Date: August 10, 2021 Subjective Patient is seen and examined at bedside States feeling well Had Brown stool this morning Tolerates diet Denies chest pain, dyspnea, dizziness, nausea, abdominal pain Review of Systems Review of Systems: All systems reviewed & are unremarkable except as noted in Subjective Physical Exam Physical Exam: Physical Exam: Vitals signs as noted above General Appearance:Moderately built and nourished, no apparent distress Head: normocephalic, Atraumatic Eyes: normal inspection, EOMI Neck: supple, Trachea midline Respiratory/Chest: Normal breath sounds, CTA, No accessory muscle use Cardiovascular: S1, S2, No murmur Abdomen/GI:Soft, Non tender, Bowel sounds present Extremities/Musculoskeletal:normal inspection, no edema Neurologic/Psych:AAOX3, grossly no focal neurological deficits Skin: normal color, warm Results & Data Results & Data ([facility]) Vital Signs (Past 12 Hours) Vital Signs Temp Pulse Pulse Resp BP BP Pulse Ox 08/13/21 10:52 73 08/13/21 07:33 36.8 C 69 18 128/84 97 08/13/21 04:48 36.9 C 77 19 124/80 99 Laboratory Results Short CBC 08/12/21 08/13/21 Range/Units 19:41 07:06 Hgb 9.1 L 9.6 L (12.0-16.0) g/dL Hct 27.1 L 28.8 L (37-47) % (1) Anemia Anemia type: unspecified type Qualified Code(s): D64.9 - Anemia, unspecified
[2021-08-13 12:43] VITALS: BP 135/82; TEMP 98.4; O2SAT 99
[2021-08-13 13:32] VITALS: PULSE 18
--- NOTE | 2021-08-13 17:18 | Discharge Summary ---
Date of Service August 13, 2021 Admission HPI Per Admitting Provider This is a 71 y/o female with a PMH of iron deficiency anemia, HTN, PAF, and prior tricuspid valve repair who presents to the ED today with black stools x 3 days. Three days ago, on 08/07, pt underwent EGD and Colonoscopy as part of work-up for iron deficiency anemia, which pt reports is long-standing (5 years). She was taking iron supplement until it was held for the recent procedures - she has not resumed it yet post-scopes. By Saturday night (same day of scopes), she started with small-volume semi-formed black stools, which have continued for the past three days, usually ~4x/day. No hematochezia. She denies associated abdominal pain, N/V, loss of appetite, heartburn or indigestion. She has noted new-onset dizziness since the procedure that is worse with position changes. She denies chest pain, palpitations, shortness of breath/[place], fevers, chills, sweats. EGD 08/07/21: - Normal upper third of esophagus, middle third of esophagus and lower third of esophagus. - Z-line regular, 40 cm from the incisors. - Normal stomach. Biopsied. - Normal examined duodenum. Biopsied. Colonoscopy 08/07/21: A tattoo was seen in the rectum. - No specimens collected. - Otherwise normal to the terminal ileum, with retroflexed views of the ascending colon and rectum. A. Duodenum, biopsy: Duodenal mucosa with mildly increased intraepithelial lymphocytes (see comment). B. Stomach, biopsy: Antral mucosa with mild chronic inflammation and mild reactive changes. Negative for H. pylori by immunohistochemistry. Comment: A. No apparent villous blunting is noted. The finding is mild and may be nonspecific, or associated with a subtle form of food/nutrition intolerance, drug reaction or other conditions. Clinical and endoscopic correlation is recommended. Admission Exam Per Admitting Provider Physical Exam Constitutional: + thin; no acute distress Eyes: + anicteric sclerae Neck: trachea midline Respiratory: no respiratory distress and does not use accessory muscles Auscultation: lungs clear to auscultation bilaterally and + rhonchi; no rales and no wheezes Cardiovascular: Rate/Rhythm: regular rate and regular rhythm Heart Sounds: + murmur; no gallop and no cardiac rub Vessels: dorsalis pedis pulses present and radial pulses present Extremities: no calf tenderness and no pedal edema Gastrointestinal (Abdomen): Inspection/Auscultation: normal bowel sounds; abdomen not distended Percussion/Palpation: abdomen soft; abdomen nontender and no guarding Musculoskeletal: Head/Neck/Chest: normocephalic, head atraumatic and neck supple Skin: no rashes and no jaundice Neurologic: moves all extremities; no focal motor deficits Psychiatric: A+Ox3, euthymic affect Principal Diagnosis Acute gastrointestinal bleeding Discharge Data Allergies Allergy/AdvReac Type Severity Reaction Status Date / Time [id number] Allergy Unknown Uncoded 05/29/05 10:08 Consultations 08/10/21 15:50 Consult Gastroenterology Stat 08/10/21 16:05 ED Decision to Admit Stat Procedures Performed Operation Date: 08/11/21 17:00 Actual Procedures p EGD Hemostasis - Ankur Antonio MD Hospital Course (1) Acute upper gastrointestinal bleeding: Acute gastrointestinal bleeding --S/P : Normal esophagus. Post biopsy erosive gastropathy with no bleeding and no stigmata of recent bleeding. Post biopsy oozing duodenal ulcer with a visible vessel. Injected with Epi. Treated with bipolar cautery. One Padlock clip was placed. Hemostasis achieved. --Avoid Aspirin, NSAIDs for 5 days -Continue PPI drip >>Transitioned to PO Protonix - Appreciate GI input Monitor H&h Plan to transition to p.o. Protonix twice a day for 2 months Needs follow-up with GI upon discharge Hb stable (2) Anemia: Management as above Monitor (3) Hypertension: Continue home medications Monitor DVT Px:SCDs CODE STATUS Full code Disposition Home Total Time Total Time Spent Total Time Spent (In Minutes): 40 minutes Discharge Plan Discharge Items Patient Disposition: Home - Self-Care Reason For Visit: GI BLEED Discharge Diagnosis: Acute gastrointestinal bleeding Condition on Discharge: Good Activity: Per Instructions section Exercise/Sports: Gradually increase as tolerated Non-emergency contact: Primary Care Provider and [place] Call non-emergency contact if: you have any medication questions, your symptoms worsen, your pain is concerning for you and you have a fever Follow-up/Referrals: Zuleima Garcia MD [Primary Care Provider] - (Date & Time 08/15/2021 2:00 PM Provider Zuleima Garcia MD Department General Internal Medicine [facility] ) Diet: Heart Healthy Addtl Attending Provider Instructions: Follow-up with your primary care physician Dr. Zuleima Garcia on 08/15/2021 2:00 PM Follow-up with your mold carrier Dr. Antonio in 3-4 weeks ----Your mold carrier recommends to get a repeat upper endoscopy in 3 months. Follow-up with your mold carrier for further recommendations. No aspirin, ibuprofen, naproxen or other nonsteroidal anti-inflammatory drugs for 5 days. -----You can Resume Aspirin 81mg on 08/17/21 if no recurrence of bleeding Seek immediate medical attention if your symptoms reoccur or worsen Please take all medications as instructed on discharge list below. Please call if you have any questions or problems. You can reach a [facility] hospitalist on duty at [facility] 24 hours a day by calling [phone] Pending Studies at Discharge: No Stand-Alone Forms: My [facility], Smoking Cessation Medications and DC Order Prescriptions: New ferrous sulfate 325 mg (65 mg iron) Tablet,Delayed Release (Dr/Ec) 325 mg PO QAM Qty: 30 RF: 1 pantoprazole [Protonix] 40 mg tablet,delayed release (DR/EC) 40 mg PO BID Qty: 60 RF: 1 Continued aspirin 81 mg tablet,delayed release (DR/EC) 81 mg PO QPM RF: 0 cyanocobalamin (vitamin B-12) [Vitamin B-12] 500 mcg Tablet 1,000 mcg PO DAILY RF: 0 magnesium 100 mg Tablet 100 mg PO DAILY RF: 0 metoprolol succinate 25 mg tablet extended release 24 hr 25 mg PO BID RF: 0 ramipril 10 mg capsule 10 mg PO BID RF: 0 calcium carbonate-vitamin D3 [Calcium 600 with Vitamin D3] 600 mg(1,500mg) - 500 unit Capsule 1 cap PO BID RF: 0 amlodipine 5 mg tablet 5 mg PO QPM RF: 0 Discharge Orders: Discharge Order (Routine); Ordered 08/13/21 Ordered By: Pete Rodrigues Admission Data Admit Date/Time: 08/10/21 17:39 Attending Provider: Pete Rodrigues Admit Provider: Mario Uriarte Primary Care Provider: Zuleima Garcia Other Providers: Ankur Antonio ; Mario Uriarte Other Interventions: Discharge Summary Assessment (RN) Last Done: 08/13/21 13:31
[2021-08-14] MEDS ORDERED: FERROUS SULFATE 325 MG TAB PO SCH (09:00)
--- NOTE | 2021-08-21 14:23 | Coding Query ---
ANEMIA To promote full compliance with coding requirements relating to patient care, physician participation is requested in all cases of certified medical coder uncertainty. Please assist us with the question(s) below: Coding Question(s): The record reflects the following clinical findings:Pt admitted with bleeding duodenal ulcer. 1 UPC 's on 08/11. Seeking to clarify the type of anemia that was treated. Thank you ! Ochoa Mejias, GIULIA CCS If these findings are indicative of anemia, please specify the known or suspected type by placing an "X" within the parenthesis (x). If other, please document type. Examples are: (x ) Acute blood loss anemia ( ) Acute Postoperative blood loss anemia ( ) Acute postoperative anemia due to dilutional fluids ( ) Chronic blood loss anemia ( ) Anemia of chronic disease ( ) Aplastic anemia ( ) Anemia due to renal disease ( ) Anemia in neoplastic disease ( ) Iron deficient anemia ( ) Anemia, unspecified or other ( ) Other: (please specify) ( ) Unable to determine MTDD
== END 2021-08-13 14:07 | disposition home or self-care (01) | DRG 378 ==
LOC: ED 12:53 → SUATTDRO 17:39 → 2N 17:39

== ENCOUNTER 2024-07-15 15:03 | Inpatient (IN) ==
[2024-07-15] MEDS: dilTIAZem HCl 5 MG/ML 5 ML VIAL IV ONE (15:21)
[2024-07-15] MEDS: dilTIAZem HCl 5 MG/ML 5 ML VIAL IV STA (15:21)
[2024-07-15] MEDS: SODIUM CHLORIDE 0.9% 1,000 ML IV SCH (15:22)
[2024-07-15] MEDS: ASPIRIN CHEW 324 MG PO STA (15:29)
[2024-07-15] MEDS: LORazepam 1 MG/1 ML SYR ED Inj Use IV STA (15:29)
[2024-07-15 15:40] LABS: Basophils # (auto) 0.02 K/uL (0.00-0.20); Basophils % (auto) 0.2 %; Eosinophils # (auto) 0.06 K/uL (0.00-0.50); Eosinophils % (auto) 0.7 %; Hematocrit (blood only) 34.7 % (37.0-47.0); Hemoglobin 11.6 g/dl (12.0-16.0); Immature Granulocytes # (auto) 0.04 K/uL (0.01-0.20); Immature Granulocytes % (auto) 0.5 %; Lymphocytes # (auto) 1.71 K/uL (1.20-3.40); Lymphocytes % (auto) 19.4 %; Mean Corpuscular Hemoglobin 30.6 pg (25.0-34.0); Mean Corpuscular Hgb Conc 33.4 g/dL (32.0-36.0); Mean Corpuscular Volume 91.6 fL (80.0-100.0); Mean Platelet Volume 10.3 fL (9.4-12.4); Monocytes # (auto) 0.61 K/uL (0.11-0.59); Monocytes % (auto) 6.9 %; Neutrophils # (auto) 6.39 K/uL (1.40-6.50); Neutrophils % (auto) 72.3 %; Platelet Count 187 K/uL (130-400); RDW Coefficient of Variation 13.2 % (11.5-14.5); RDW Standard Deviation 44.4 fL (36.4-46.3); Red Blood Count 3.79 M/uL (4.20-5.40); White Blood Count 8.83 K/ul (4.8-10.8)
[2024-07-15 15:40] LABS: iSTAT Creatinine 0.7 mg/dl (0.6-1.3); iSTAT Hemoglobin 12.2 g/dl (12.0-16.0); iSTAT Ionized Calcium 1.14 mmol/l (1.12-1.32); iSTAT Potassium 3.8 mmol/L (3.3-5.0)
[2024-07-15 15:54] LABS: BUN Creatinine Ratio 14.1 (10-20); Calcium 9.6 mg/dl (8.6-10.3); Creatinine Clr Calc Pharmacy 59.2 ml/min; Est GFR (African American) 98.6 ml/min; Est GFR (Non-African American) 85.1 ml/min; Potassium 3.9 mmol/L (3.5-5.1)
--- NOTE | 2024-07-15 15:59 | XRay Report ---
XR chest 1V portable HISTORY: Chest pain, nonspecific COMPARISON: Chest 08/10/2021. FINDINGS: No pneumothorax. Trace bilateral pleural effusions. The heart is enlarged. There are postst ernotomy changes and cardiac valve prostheses noted. Progressive interstitial/vascular thickening con sistent with mild pulmonary edema. No acute fractures. IMPRESSION: Cardiomegaly with mild interstitial pulmonary edema and trace bilateral pleural effusions. ACT 112: Negative or not required by law. Electronically signed by: Reed Rhodes M.D. 07/15/2024 3:58 PM
[2024-07-15] MEDS: OPTIRAY 320 125ml IV ONE (16:04)
[2024-07-15 16:16] LABS: Influenza A virus by PCR Negative (Neg); Influenza B virus by PCR Negative (Neg); RSV by PCR Negative (Neg); SARS CoV2 RNA(COVID-19) Ceph NEGATIVE (Negative)
[2024-07-15 16:19] LABS: Partial Thromboplastin Ratio 1.3; Partial Thromboplastin Time 35 Seconds (21-31); Prothrombin Time 11.1 Seconds (9.0-12.0)
--- NOTE | 2024-07-15 16:25 | CT Scan Report ---
CT angio chest PE protocol CLINICAL HISTORY: Chest Pain, eval for PE TECHNIQUE: Multidetector row helical CT of the chest was performed with angiographic protocol. Allison l and sagittal reformations were obtained. Coronal and sagittal MIPS were obtained from the axial darrel a set and were submitted for review. Automated dose lowering techniques and/or adjustment according to patient size were utilized for this exam. CT DOSE: 414.9 mGy.cm Comparison: Comparison is made to chest radiograph 07/15/2024 FINDINGS: Lungs and pleura: Smooth interlobular septal thickening is seen compatible with interstitial pulmonar y edema. There are groundglass opacities favoring the central lungs. There is a small right pleural e ffusion. Heart and pericardium: Mitral annular calcifications are seen. Vessels: No evidence of pulmonary embolism. The ascending aorta measures 42 mm. Mediastinum and lucien: Unremarkable. Chest wall and lower neck: Unremarkable. Abdomen: Unremarkable. Bones: Degenerative changes in the thoracic spine. There is a lucency in the right lateral ninth rib with erosion of the cortex and possibly a small soft tissue mass. IMPRESSION: 1. No evidence of pulmonary embolus. 2. Cardiomegaly and moderate to severe pulmonary edema. 3. Small right pleural effusion. 4. Ascending aortic aneurysm. 5. Incidental note is made of a lucency in the right lateral ninth rib which may represent a lytic l esion. Clinical correlation is recommended to exclude malignancy. ACT 112: Positive. There are findings on this exam that require communication between the performing entity and the patient following Patient Test Result Information Act ([place] Act 112) guidelines. Electronically signed by: Juan Renae M.D. 07/15/2024 4:22 PM
--- NOTE | 2024-07-15 17:23 | History & Physical Report ---
Date of Service July 15, 2024 Assessment & Plan (1) Atrial fibrillation with RVR: Plan: Patient is 73-year-old female with PMH myxomatous mitral valve disease, severe mitral regurgitation s/p mitral valve repair, tricuspid valve repair, biatrial Maze procedure and left atrial appendage ligation 11/07/2017, HTN, dyslipidemia, history of QT prolongation, possible history PAF s/p left atrial appendage ligation, history of GI bleed 2020 presented to ER with complaint of SOB and palpitations that started today. In ER found to be in atrial fibrillation RVR with HR in 140s, BP 145/100, 95% on room air, R: 18 CTA chest: No evidence of pulmonary embolus. Cardiomegaly and moderate to severe pulmonary edema. Small right pleural effusion. Ascending aortic aneurysm. In ER given 1L NSS, Cardizem 15 mg IV with heart rate down into low 100s. Troponin negative x 2. Hold home metoprolol succinate and changed to metoprolol tartrate IV heparin Echo EKG in a.m. Cardiology consult CBC, BMP in a.m. (2) Volume overload: (3) Hx of mitral valve repair: (4) H/O tricuspid valve repair: Plan: In ER patient became hypoxic after 1L NSS CXR: pulmonary edema BNP: 1847 In ER given Lasix 40 mg IV Monitor I's and O's, daily weight Supplemental oxygen as needed Lasix 40mg IV daily Start KCl supplement Echo BMP in am Outpatient echo 01/30/2024: EF: 60-64%, left atrium severely enlarged, moderate aortic valve sclerosis, evidence of prior mitral valve repair and prior mitral valve annuloplasty, moderate-severe mitral insufficiency, evidence of previous tricuspid valve annuloplasty, no significant TR, proximal ascending thoracic aorta mildly enlarged at 4.2 cm (5) Hyperglycemia: Plan: Random glucose: 179 Repeat 116 A1c in AM If morning glucose high can plan on adding additional BSG testing and Novolog SS (6) Abnormal CT of the chest: Plan: CTA Chest: Incidental note is made of a lucency in the right lateral ninth rib which may represent a lytic lesion. Clinical correlation is recommended to exclude malignancy. Will need further follow up (7) Hypertension: Plan: Continue amlodipine, ramipril with holding parameters (8) Dyslipidemia: Plan: Intolerant to statin and Zetia (9) Chronic anemia: Plan: Hgb: 11.6. Was 10.8 on 03/04/24 Continue ferrous sulfate, vitamin B12 DVT Prophylaxis On Heparin Admit PCU Full Code as per discussion with pt Follows with Dr Garcia for routine care Pt was seen and care coordinated with Dr Coyne. See addendum I spent a total of 76 minutes reviewing notes, outpatient records, labs, medication, coordinating, documenting and providing care for this patient excluding time spent in the performance of separately billed services. History of Present Illness Chief Complaint: SOB Primary Care Provider: Zuleima Garcia MD Patient is 73-year-old female with PMH myxomatous mitral valve disease, severe mitral regurgitation s/p mitral valve repair, tricuspid valve repair, biatrial Maze procedure and left atrial appendage ligation 11/07/2017, HTN, dyslipidemia, history of QT prolongation, possible history PAF s/p left atrial appendage ligation, history of GI bleed 2020 presented to ER with complaint of SOB and palpitations that started today. Patient reports traveling back from [place] 3 days ago. She reports had some bilateral lower extremity after the flight and wore compression hose with improvement. Denies any noted shortness of breath or exertional shortness of breath recently. States that she has not been sleeping well and has been under a lot of stress with illness of her brother. States this morning was having trouble lying flat as well as feeling a little bit short of breath however upon awakening and doing ADLs did not notice any shortness of breath. Patient states had sudden onset of palpitations and shortness of breath around lunchtime that persisted so came to ER. Did not notice any chest pain, dizziness. Denies recent illness, fever/chills, diaphoresis, N/V/D/C, METZ, syncope, vision changes, neck pain, cough, sore throat, choking, otalgia, rhinorrhea, abdominal pain, paresthesias, weakness, rashes, urinary symptoms. Per outpatient cardiology note no evidence of PAF per [facility] on 11/2023. Allergies Allergy/AdvReac Type Severity Reaction Status Date / Time pantoprazole Allergy Severe Gastrointestinal Verified 07/15/24 16:58 Upset prednisone AdvReac Severe Cramping Verified 07/15/24 16:58 of the Muscles Home Medications Medication Instructions Recorded Confirmed Type amlodipine 5 mg tablet 5 mg PO QPM 08/10/21 07/15/24 History calcium carbonate 600 mg-vitamin 1 cap PO BID 08/10/21 07/15/24 History D3 12.5 mcg (500 unit) capsule (Calcium 600 with Vitamin D3) cyanocobalamin (vitamin B-12) 500 500 mcg PO QAM 08/10/21 07/15/24 History mcg tablet (Vitamin B-12) magnesium 100 mg tablet 100 mg PO QAM 08/10/21 07/15/24 History metoprolol succinate 25 mg 25 mg PO AMHS 08/10/21 07/15/24 History tablet,extended release 24 hr ramipril 10 mg capsule 10 mg PO BID 08/10/21 07/15/24 History ferrous sulfate 325 mg (65 mg 325 mg PO QAM #30 tabs 08/13/21 07/15/24 Rx iron) tablet,delayed release aspirin 81 mg chewable tablet 81 mg PO QDB 07/15/24 07/15/24 History Past Med/Surg History Problem List (Updated 07/16/24 @ 15:00 by Antonio Garber DO) Paroxysmal A-fib Acute heart failure with preserved ejection fraction Abnormal CT of the chest Hyperglycemia Chronic anemia Dyslipidemia H/O tricuspid valve repair Hx of mitral valve repair Hypoxia (Acute) Volume overload (Acute) Atrial fibrillation with RVR (Acute) Hypertension Acute upper gastrointestinal bleeding (Acute) Anemia (Acute) Abnormal EKG (Acute) Black stool Medical History Paroxysmal A-fib History of anemia History of hyperlipidemia Social History Smoking Status: Never smoker Second Hand Exposure: No; Do You Dip or Chew Tobacco: No; Hx Alcohol Use: No Hx Substance Use: No Preferred Language: Latvian Communication Ability: Effective Applied Anthropologist Required: No Beliefs That Will Affect Care: None Current Living Situation: Family Current Living Situation Comment: Daughter and granddaughter Other Information That Helps Us Care for You: No Feels Safe at Home: Yes Safety Concerns: Feels Safe At This Time Assistive Devices: None Review of Systems Review of Systems: All systems reviewed & are unremarkable except as noted in HPI & below Physical Exam Physical Exam: General: no distress, WDWN Head: normocephalic, atraumatic Eyes: conjunctiva non-injected, anicteric ENT: normal inspection external ears, nose, mucous membranes moist Neck: supple, trachea midline, non-tender Lungs:+rales bases, 94% on 2L via NC, no respiratory distress CV: irregularly irregular, rate 104, trace pretibial edema Abd: normal BS, soft, non-tender Ext: no cyanosis, no calf tenderness Neuro: A&O x 3, no focal deficits noted, normal affect Skin: warm, dry Results & Data Results & Data Vital Signs (Past 12 Hours) Vital Signs Temp Pulse Pulse Resp BP BP Pulse Ox 07/15/24 17:06 107 H 23 100 07/15/24 17:00 125/80 07/15/24 16:57 98 H 18 100 07/15/24 16:51 95 H 26 H 07/15/24 16:46 98 H 21 136/82 93 07/15/24 16:31 149/84 H 07/15/24 16:24 102 H 25 H 91 07/15/24 16:20 87 L 07/15/24 16:16 131/77 07/15/24 16:12 98 H 23 92 07/15/24 16:07 144/77 H 07/15/24 16:07 91 H 24 144/77 H 91 07/15/24 15:40 80 07/15/24 15:36 80 92 07/15/24 15:30 139/106 H 07/15/24 15:30 78 24 139/106 H 93 07/15/24 15:25 92 H 18 152/119 H 95 07/15/24 15:20 07/15/24 15:03 07/15/24 15:03 36.6 C 143 H 18 145/100 H 95 O2 Del Method O2 Flow Rate 07/15/24 17:06 Nasal Cannula 3 07/15/24 17:00 07/15/24 16:57 Nasal Cannula 3 07/15/24 16:51 07/15/24 16:46 Nasal Cannula 4 07/15/24 16:31 07/15/24 16:24 Nasal Cannula 3 07/15/24 16:20 Nasal Cannula 0 07/15/24 16:16 07/15/24 16:12 Nasal Cannula 3 07/15/24 16:07 07/15/24 16:07 Nasal Cannula 3 07/15/24 15:40 07/15/24 15:36 Nasal Cannula 2 07/15/24 15:30 07/15/24 15:30 Room Air 07/15/24 15:25 Room Air 07/15/24 15:20 Room Air 07/15/24 15:03 Room Air 07/15/24 15:03 Room Air Laboratory Results Short CBC 07/15/24 Range/Units 15:21 WBC 8.83 (4.8-10.8) K/ul Hgb 11.6 L (12.0-16.0) g/dl Hct 34.7 L (37.0-47.0) % Plt Count 187 (130-400) K/uL BMP 07/15/24 15:21 Sodium 133 L Potassium 3.9 Chloride 99 Carbon Dioxide 25 BUN 10 Creatinine 0.71 Glucose 179 H Calcium 9.6 Diagnostic Findings Chest CTA 07/15/24 15:17 CT angio chest PE protocol CLINICAL HISTORY: Chest Pain, eval for PE TECHNIQUE: Multidetector row helical CT of the chest was performed with angiographic protocol. Coronal and sagittal reformations were obtained. Coronal and sagittal MIPS were obtained from the axial data set and were submitted for review. Automated dose lowering techniques and/or adjustment according to patient size were utilized for this exam. CT DOSE: 414.9 mGy.cm Comparison: Comparison is made to chest radiograph 07/15/2024 FINDINGS: Lungs and pleura: Smooth interlobular septal thickening is seen compatible with interstitial pulmonary edema. There are groundglass opacities favoring the central lungs. There is a small right pleural effusion. Heart and pericardium: Mitral annular calcifications are seen. Vessels: No evidence of pulmonary embolism. The ascending aorta measures 42 mm. Mediastinum and lucien: Unremarkable. Chest wall and lower neck: Unremarkable. Abdomen: Unremarkable. Bones: Degenerative changes in the thoracic spine. There is a lucency in the right lateral ninth rib with erosion of the cortex and possibly a small soft tissue mass. IMPRESSION: 1. No evidence of pulmonary embolus. 2. Cardiomegaly and moderate to severe pulmonary edema. 3. Small right pleural effusion. 4. Ascending aortic aneurysm. 5. Incidental note is made of a lucency in the right lateral ninth rib which may represent a lytic lesion. Clinical correlation is recommended to exclude malignancy. ACT 112: Positive. There are findings on this exam that require communication between the performing entity and the patient following Patient Test Result Information Act ([place] Act 112) guidelines. Electronically signed by: Juan Renae M.D. 07/15/2024 4:22 PM Chest X-Ray 07/15/24 15:17 XR chest 1V portable HISTORY: Chest pain, nonspecific COMPARISON: Chest 08/10/2021. FINDINGS: No pneumothorax. Trace bilateral pleural effusions. The heart is enlarged. There are poststernotomy changes and cardiac valve prostheses noted. Progressive interstitial/vascular thickening consistent with mild pulmonary edema. No acute fractures. IMPRESSION: Cardiomegaly with mild interstitial pulmonary edema and trace bilateral pleural effusions. ACT 112: Negative or not required by law. Electronically signed by: Reed Rhodes M.D. 07/15/2024 3:58 PM ECG Additional Comments: atrial fibrillation, RVR, ST depression anterior lateral leads per my interpretation Supervising Physician Co-Signing Physician Notes 73-year-old lady with PMH of myxomatous mitral valve disease, severe mitral regurgitation status post mitral valve repair, tricuspid valve repair, biatrial maze procedure and left atrial appendage ligation 11/07/2017, HTN, HLD, possible history of PAF status post left atrial appendage ligation, GI bleed PUD July 2021 presented to the ED with complaint of shortness of breath since morning of the day of arrival. Patient reports having recent long travel [air and ground] all the way from [facility] to [place]. She reached to [place] last Saturday [facility]. Reports her appetite had been not so good during the travel. Also patient's brother who is 88 years old he recently transitioned to hospice care and patient has been anxious about it per patient's daughter at bedside. Patient was noted to be in A-fib RVR at ED and also noted to be in acute heart failure. Per patient and her daughter, they are not on any anticoagulation for supposed history of A-fib in the past. Patient denies febrile illness or cough. Patient reported shortness of breath with activity and lying flat. Patient did receive some fluid in the ED with worsening of shortness of breath, reports improvement in her shortness of breath after getting dose of Lasix. Labs reviewed. Troponin WNL, BNP elevated. TSH WNL. EKG with A-fib RVR. Chest imaging with no evidence of PE, evidence of pulmonary edema and bilateral pleural effusion. Active problems: A-fib RVR: received p.o. dose of metoprolol and diltiazem in the ED. Heart rate in 80s to 90s at bedside exam. Continue with metoprolol tartrate michael p.o. and prn IV. Heparin drip. Cardiology consult. Acute heart failure: CTA chest ruled out PE. Patient with shortness of breath on lying flat and with activity. Echo. Diuresis with 40 mg IV Lasix at ED with improvement in symptoms. Continue with 40 Mg IV Lasix daily. Monitor and replete electrolytes. Lytic lesion noted in CTA chest - f/u w/ PCP for age appropriate cancer screening. Other chronic medical conditions: Continue with/resume home meds as. On exam: GENERAL: Alert and oriented x3. NAD, on 3L NC O2. Appears old/frail/weak. HEENT: No pallor, no icterus. Pupils equal, round and reactive to light. Oral mucosa moist. NECK: No JVD, no neck masses. HEART: S1 and S2 heard. irregular rate and rhythm. in 90s. No murmur, no gallop. RESPIRATORY SYSTEM: Normal AP diameter. No accessory muscle use. No wheezing, b/l mid and basal crackles. ABDOMEN: Soft, bowel sounds present, nontender, no distention. CENTRAL NERVOUS SYSTEM: No facial droop. Speech is clear. Obeys simple commands. Moves extremities. EXTREMITIES: trace ble edema, no erythema seen. I have seen and examined the patient and have discussed the case with the provider above. I agree with the assessment and plan as stated.
[2024-07-15 17:41] LABS: Magnesium 1.8 mg/dl (1.7-2.4)
[2024-07-15 17:57] LABS: Thyroid Stimulating Hormone 1.056 uIu/ml (0.300-4.500)
[2024-07-15] MEDS: FUROSEMIDE 40 MG/4 ML VIAL IV ONE (18:00)
[2024-07-15] MEDS: METOPROLOL TARTRATE 25 MG TAB PO STA (18:13)
--- NOTE | 2024-07-15 18:19 | Emergency Department Note ---
History of Present Illness General Chief Complaint: Shortness of Breath/Dyspnea Stated Complaint: SOB, HEART RACING, OX HIGH Time Seen by Provider: 07/15/24 15:14 History of Present Illness Provider Complaint: shortness of breath and anxiety Onset (ago): day(s) (1) Consistency/Duration: + progressively worsening Relieved By: + nothing Exacerbated By: + exertion and + coughing Context: + recent illness, + recent travel (Patient recently traveled back from [place]) and + anxiety (Patient reports she is stressed about a family member in [place] who is very ill and has not been sleeping well) Associated symptoms: + cough; no chest pain, no fever, no sputum production, no orthopnea, no hemoptysis, no abdominal pain or no chest congestion Treatment prior to arrival: none Home Medications Medication Instructions Recorded Confirmed Type amlodipine 5 mg tablet 5 mg PO QPM 08/10/21 07/15/24 History calcium carbonate 600 mg-vitamin 1 cap PO BID 08/10/21 07/15/24 History D3 12.5 mcg (500 unit) capsule (Calcium 600 with Vitamin D3) cyanocobalamin (vitamin B-12) 500 500 mcg PO QAM 08/10/21 07/15/24 History mcg tablet (Vitamin B-12) magnesium 100 mg tablet 100 mg PO QAM 08/10/21 07/15/24 History metoprolol succinate 25 mg 25 mg PO AMHS 08/10/21 07/15/24 History tablet,extended release 24 hr ramipril 10 mg capsule 10 mg PO BID 08/10/21 07/15/24 History ferrous sulfate 325 mg (65 mg 325 mg PO QAM #30 tabs 08/13/21 07/15/24 Rx iron) tablet,delayed release aspirin 81 mg chewable tablet 81 mg PO QDB 07/15/24 07/15/24 History Allergies Allergy/AdvReac Type Severity Reaction Status Date / Time pantoprazole Allergy Severe Gastrointestinal Verified 07/15/24 16:58 Upset prednisone AdvReac Severe Cramping Verified 07/15/24 16:58 of the Muscles Past Med/Surg History Problem List (Updated 07/15/24 @ 19:35 by Nolberto Guthrie MD) Hypoxia (Acute) Volume overload (Acute) Atrial fibrillation with RVR (Acute) Hypertension Acute upper gastrointestinal bleeding (Acute) Anemia (Acute) Abnormal EKG (Acute) Black stool Medical History Paroxysmal A-fib History of anemia History of hyperlipidemia Surgical History H/O tricuspid valve repair Hx of mitral valve repair Social History Smoking Status: Never smoker Second Hand Exposure: No; Do You Dip or Chew Tobacco: No; Hx Alcohol Use: No Hx Substance Use: No Preferred Language: Chinese Communication Ability: Effective 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 Beliefs That Will Affect Care: None Current Living Situation: Family Current Living Situation Comment: Daughter and granddaughter Feels Safe at Home: Yes Assistive Devices: None Physical Exam 2 Vital Signs: Vital Signs - 24 hr 07/15/24 15:03 07/15/24 15:03 07/15/24 15:20 Temperature 36.6 C Temperature Source Temporal Artery Sc an Pulse Rate 143 H Pulse Rate [Apical ] Pulse Rate from Sp O2 Sensor Respiratory Rate 18 Blood Pressure 145/100 H Blood Pressure [Le ft Arm] Blood Pressure Maria Fernanda n 115 Blood Pressure Maria Fernanda n [Left Arm] Pulse Oximetry 95 Oxygen Delivery Me thod Room Air Room Air Room Air Oxygen Flow Rate Sepsis Recent Feve r Within 48 Hours No Sepsis New/Unexpla ined Change in Men ciera Status N/A Sepsis Action Take n by Nursing No Action Required Oxygen Flow Rate - Titration Pulse Oximetry Pos t Tiitration 07/15/24 15:25 07/15/24 15:30 07/15/24 15:30 Temperature Temperature Source Pulse Rate 78 Pulse Rate [Apical ] 92 H Pulse Rate from Sp O2 Sensor Respiratory Rate 18 24 Blood Pressure 139/106 H 139/106 H Blood Pressure [Le ft Arm] 152/119 H Blood Pressure Maria Fernanda n 115 115 Blood Pressure Maria Fernanda n [Left Arm] 130 Pulse Oximetry 95 93 Oxygen Delivery Me thod Room Air Room Air Oxygen Flow Rate Sepsis Recent Feve r Within 48 Hours Sepsis New/Unexpla ined Change in Men ciera Status Sepsis Action Take n by Nursing Oxygen Flow Rate - Titration Pulse Oximetry Pos t Tiitration 07/15/24 15:36 07/15/24 15:40 07/15/24 16:07 Temperature Temperature Source Pulse Rate 80 80 91 H Pulse Rate [Apical ] Pulse Rate from Sp O2 Sensor 77 Respiratory Rate 24 Blood Pressure 144/77 H Blood Pressure [Le ft Arm] Blood Pressure Maria Fernanda n 95 Blood Pressure Maria Fernanda n [Left Arm] Pulse Oximetry 92 91 Oxygen Delivery Me thod Nasal Cannula Nasal Cannula Oxygen Flow Rate 2 3 Sepsis Recent Feve r Within 48 Hours Sepsis New/Unexpla ined Change in Men ciera Status Sepsis Action Take n by Nursing Oxygen Flow Rate - Titration Pulse Oximetry Pos t Tiitration 07/15/24 16:07 07/15/24 16:12 07/15/24 16:16 Temperature Temperature Source Pulse Rate 98 H Pulse Rate [Apical ] Pulse Rate from Sp O2 Sensor 96 H Respiratory Rate 23 Blood Pressure 144/77 H 131/77 Blood Pressure [Le ft Arm] Blood Pressure Maria Fernanda n 95 100 Blood Pressure Maria Fernanda n [Left Arm] Pulse Oximetry 92 Oxygen Delivery Me thod Nasal Cannula Oxygen Flow Rate 3 Sepsis Recent Feve r Within 48 Hours Sepsis New/Unexpla ined Change in Men ciera Status Sepsis Action Take n by Nursing Oxygen Flow Rate - Titration Pulse Oximetry Pos t Tiitration 07/15/24 16:20 07/15/24 16:24 07/15/24 16:31 Temperature Temperature Source Pulse Rate 102 H Pulse Rate [Apical ] Pulse Rate from Sp O2 Sensor 102 H Respiratory Rate 25 H Blood Pressure 149/84 H Blood Pressure [Le ft Arm] Blood Pressure Maria Fernanda n 87 Blood Pressure Maria Fernanda n [Left Arm] Pulse Oximetry 87 L 91 Oxygen Delivery Me thod Nasal Cannula Nasal Cannula Oxygen Flow Rate 0 3 Sepsis Recent Feve r Within 48 Hours Sepsis New/Unexpla ined Change in Men ciera Status Sepsis Action Take n by Nursing Oxygen Flow Rate - Titration 3 Pulse Oximetry Pos t Tiitration 92 07/15/24 16:46 07/15/24 16:51 07/15/24 16:57 Temperature Temperature Source Pulse Rate 98 H 95 H 98 H Pulse Rate [Apical ] Pulse Rate from Sp O2 Sensor 85 70 Respiratory Rate 21 26 H 18 Blood Pressure 136/82 Blood Pressure [Le ft Arm] Blood Pressure Maria Fernanda n 98 Blood Pressure Maria Fernanda n [Left Arm] Pulse Oximetry 93 100 Oxygen Delivery Me thod Nasal Cannula Nasal Cannula Oxygen Flow Rate 4 3 Sepsis Recent Feve r Within 48 Hours Sepsis New/Unexpla ined Change in Men ciera Status Sepsis Action Take n by Nursing Oxygen Flow Rate - Titration Pulse Oximetry Pos t Tiitration 07/15/24 17:00 07/15/24 17:06 08/21/24 17:26 Temperature Temperature Source Pulse Rate 107 H Pulse Rate [Apical ] 88 Pulse Rate from Sp O2 Sensor 84 Respiratory Rate 23 Blood Pressure 125/80 Blood Pressure [Le ft Arm] 114/96 Blood Pressure Maria Fernanda n 99 Blood Pressure Maria Fernanda n [Left Arm] 102 Pulse Oximetry 100 96 Oxygen Delivery Me thod Nasal Cannula Nasal Cannula Oxygen Flow Rate 3 3 Sepsis Recent Feve r Within 48 Hours Sepsis New/Unexpla ined Change in Men ciera Status Sepsis Action Take n by Nursing Oxygen Flow Rate - Titration Pulse Oximetry Pos t Tiitration Physical Exam: Physical Exam GENERAL: oriented to person, place, and time. appears well-developed and well- nourished. HENT: Exam performed. - Head: Normocephalic and atraumatic. EYES: Conjunctivae and EOM are normal. Right eye exhibits no discharge. Left eye exhibits no discharge. No scleral icterus. NECK: Normal range of motion. Neck supple. No JVD present. CV: Normal rate, regular rhythm, normal heart sounds and intact distal pulses. There is no peripheral edema. Palpable radial pulses bue. PULM/CHEST: Effort normal and breath sounds normal. No respiratory distress. No stridor. no wheezes. no rales. ABD: The abdomen is soft. There is no tenderness. NEURO: Motor and sensation grossly intact. SKIN: Skin is warm and dry. He is not diaphoretic. PSYCH: normal mood and affect. Behavior is normal. Judgment and thought content normal. Course Course 1514: The patient was evaluated in room B1. A complete history and physical exam was performed Cardiac monitoring: An order was placed for continuous cardiac monitoring. The monitor shows a rate of 130-150 with atrial fibrilation rhythm interpreted by me Patient in A-fib RVR. Large-bore IV access was obtained and Cardizem 15 mg IV push was pushed which improved the patient's ventricular rate. 1630: Patient hypoxic on room air. Supplemental oxygen was applied which improved the patient's oxygen saturation. Labs are unremarkable. COVID RSV influenza negative. CTA negative for PE but does shows fluid overload. Patient be treated with Lasix and admitted to the [facility] hospitalist team. Administered Medications Discontinued Medications Aspirin (Aspirin Chew 324 Mg) 324 mg PO NOW STA Stop: 07/15/24 15:18 Last Admin: 07/15/24 15:29 Dose: 324 mg Documented By: CHONG Diltiazem HCl (Diltiazem Hcl 5 Mg/Ml 5 Ml Vial) Confirm Administered Dose 25 mg IV .STK-MED ONE Stop: 07/15/24 15:20 Last Admin: 07/15/24 15:21 Dose: Not Given Documented By: CHONG Diltiazem HCl (Diltiazem Hcl 5 Mg/Ml 5 Ml Vial) 15 mg IV NOW STA Stop: 07/15/24 15:19 Last Admin: 07/15/24 15:21 Dose: 15 mg Documented By: CHONG Co-signed By: STEFANY Furosemide (Furosemide 40 Mg/4 Ml Vial) 40 mg IV ONE ONE Stop: 07/15/24 16:33 Last Admin: 07/15/24 18:00 Dose: 40 mg Documented By: MEGHA Heparin Sodium/Dextrose (Heparin Iv Adult Wt-Based Standard *No* Initial Bolus Protocol) 1 each IV ONE STA; Protocol Stop: 07/15/24 18:28 Last Admin: 07/15/24 19:26 Dose: Not Given Documented By: DAVID Sodium Chloride (Nss) 1,000 mls @ 999 mls/hr IV .Q1H1M JAIME Stop: 07/15/24 17:15 Last Infusion: 07/15/24 16:43 Dose: Infused Documented By: Admin: 07/15/24 15:22 Dose: 999 mls/hr Documented By: CHONG Ioversol (Optiray 320 125ml) 119 ml IV ONCE ONE Stop: 07/15/24 16:05 Last Admin: 07/15/24 16:04 Dose: 119 ml Documented By: NAIMA Lorazepam (Lorazepam 1 Mg/1 Ml Syr Ed Inj Use) 0.5 mg IV ONE STA Stop: 07/15/24 15:27 Last Admin: 07/15/24 15:29 Dose: 0.5 mg Documented By: CHONG Metoprolol Tartrate (Metoprolol Tartrate 25 Mg Tab) 25 mg PO NOW STA Stop: 07/15/24 17:55 Last Admin: 07/15/24 18:13 Dose: 25 mg Documented By: CHONG Medical Decision Making Laboratory Data Attestation: I reviewed the patient's lab results. 07/15/24 15:21 07/15/24 15:21 Lab Results 07/15/24 07/15/24 07/15/24 Range/Units 15:21 15:28 15:30 WBC 8.83 (4.8-10.8) K/ul RBC 3.79 L (4.20-5.40) M/uL Hgb 11.6 L (12.0-16.0) g/dl POC Hgb 12.2 (12.0-16.0) g/dl Hct 34.7 L (37.0-47.0) % POC Hct 36 L (37-47) % MCV 91.6 (80.0-100.0) fL MCH 30.6 (25.0-34.0) pg MCHC 33.4 (32.0-36.0) g/dL RDW Std Deviation 44.4 (36.4-46.3) fL RDW Coeff of Nalini 13.2 (11.5-14.5) % Plt Count 187 (130-400) K/uL MPV 10.3 (9.4-12.4) fL Immature Gran % (Auto) 0.5 % Neut % (Auto) 72.3 % Lymph % (Auto) 19.4 % [place] % (Auto) 6.9 % Eos % (Auto) 0.7 % Baso % (Auto) 0.2 % Neut # (Auto) 6.39 (1.40-6.50) K/uL Lymph # (Auto) 1.71 (1.20-3.40) K/uL [place] # (Auto) 0.61 H (0.11-0.59) K/uL Eos # (Auto) 0.06 (0.00-0.50) K/uL Baso # (Auto) 0.02 (0.00-0.20) K/uL Immature Gran # (Auto) 0.04 (0.01-0.20) K/uL PT 11.1 (9.0-12.0) Seconds INR 1.0 (0.9-1.1) APTT 35 H (21-31) Seconds PTT Ratio 1.3 POC Sodium 136 (135-144) mmol/L Sodium 133 L (136-145) mmol/L POC Potassium 3.8 (3.3-5.0) mmol/L Potassium 3.9 (3.5-5.1) mmol/L POC Chloride 99 L (101-112) mmol/L Chloride 99 (98-107) mmol/L Carbon Dioxide 25 (21-32) mmol/L POC Total CO2 22 L (24-31) mmol/L Anion Gap 9 (3-11) POC Anion Gap 19.0 (16-25) mmol/L POC BUN 9 (7-18) mg/dl BUN 10 (6-23) mg/dl Creatinine 0.71 (0.6-1.2) mg/dl POC Creatinine 0.7 (0.6-1.3) mg/dl Est Cr Clr Drug Dosing 59.2 ml/min Est GFR ( Amer) 98.6 ml/min Est GFR (Non-Af Amer) 85.1 ml/min BUN/Creatinine Ratio 14.1 (10-20) Glucose 179 H (70-99(Fasting)) mg/dl POC Glucose (other) 180 H (70-99) mg/dl Calcium 9.6 (8.6-10.3) mg/dl POC Ioniz Calcium Femi 1.14 (1.12-1.32) mmol/l Magnesium 1.8 (1.7-2.4) mg/dl Troponin I High Sens 9.0 (0-14) pg/ml B-Natriuretic Peptide 1847 H (0-100) pg/ml Lipase 15 (11-82) U/L TSH 1.056 (0.300-4.500) uIu/ml SARS-CoV-2 (PCR) NEGATIVE (Negative) Influenza Type A (PCR) Negative (Neg) Influenza Type B (PCR) Negative (Neg) RSV (RT-PCR) Negative (Neg) Imaging Data Attestation: I personally reviewed and interpreted this imaging study as follows: My Impression: Chest x-ray: Cardiomegaly with cephalization Radiologist's Impression: Chest CTA 07/15/24 15:17 CT angio chest PE protocol CLINICAL HISTORY: Chest Pain, eval for PE TECHNIQUE: Multidetector row helical CT of the chest was performed with angiographic protocol. Coronal and sagittal reformations were obtained. Coronal and sagittal MIPS were obtained from the axial data set and were submitted for review. Automated dose lowering techniques and/or adjustment according to patient size were utilized for this exam. CT DOSE: 414.9 mGy.cm Comparison: Comparison is made to chest radiograph 07/15/2024 FINDINGS: Lungs and pleura: Smooth interlobular septal thickening is seen compatible with interstitial pulmonary edema. There are groundglass opacities favoring the central lungs. There is a small right pleural effusion. Heart and pericardium: Mitral annular calcifications are seen. Vessels: No evidence of pulmonary embolism. The ascending aorta measures 42 mm. Mediastinum and lucien: Unremarkable. Chest wall and lower neck: Unremarkable. Abdomen: Unremarkable. Bones: Degenerative changes in the thoracic spine. There is a lucency in the right lateral ninth rib with erosion of the cortex and possibly a small soft tissue mass. IMPRESSION: 1. No evidence of pulmonary embolus. 2. Cardiomegaly and moderate to severe pulmonary edema. 3. Small right pleural effusion. 4. Ascending aortic aneurysm. 5. Incidental note is made of a lucency in the right lateral ninth rib which may represent a lytic lesion. Clinical correlation is recommended to exclude malignancy. ACT 112: Positive. There are findings on this exam that require communication between the performing entity and the patient following Patient Test Result Information Act ([place] Act 112) guidelines. Electronically signed by: Juan Renae M.D. 07/15/2024 4:22 PM Chest X-Ray 07/15/24 15:17 XR chest 1V portable HISTORY: Chest pain, nonspecific COMPARISON: Chest 08/10/2021. FINDINGS: No pneumothorax. Trace bilateral pleural effusions. The heart is enlarged. There are poststernotomy changes and cardiac valve prostheses noted. Progressive interstitial/vascular thickening consistent with mild pulmonary edema. No acute fractures. IMPRESSION: Cardiomegaly with mild interstitial pulmonary edema and trace bilateral pleural effusions. ACT 112: Negative or not required by law. Electronically signed by: Reed Rhodes M.D. 07/15/2024 3:58 PM ECG Data Attestation: I personally reviewed and interpreted this ECG as follows: Interpretation: EKG #1 at 1518: Atrial fibrillation with rate 137. QRS and QTc intervals within normal limits. No ST elevation or ST depression. EKG #2 at 1522 status post Cardizem 15 mg IV push: Atrial fibrillation with a rate of 96. QRS and QTc intervals within normal limits. No ST elevation or ST depression. MDM Narrative 1514: The patient was evaluated in room B1. A complete history and physical exam was performed Cardiac monitoring: An order was placed for continuous cardiac monitoring. The monitor shows a rate of 130-150 with atrial fibrilation rhythm interpreted by me Patient in A-fib RVR. Large-bore IV access was obtained and Cardizem 15 mg IV push was pushed which improved the patient's ventricular rate. 1630: Patient hypoxic on room air. Supplemental oxygen was applied which improved the patient's oxygen saturation. Labs are unremarkable. COVID RSV influenza negative. CTA negative for PE but does shows fluid overload. Patient be treated with Lasix and admitted to the [facility]ist team. Impression & Plan Volume overload, Atrial fibrillation with RVR, Hypoxia Critical Care Time Critical Care Time: Yes Total Critical Care Time: 76 I have personally spent greater than 76 minutes of critical care time in the direct management of this patient. This includes bedside care, interpretation of diagnostic studies, and testing, discussion with consultants, patient, and family members, and other required patient management activities. This 76 minutes is in excess of all separately billable procedures. Discharge Plan Visit Data Chief Complaint: Shortness of Breath/Dyspnea Stated Complaint: SOB, HEART RACING, OX HIGH ED Provider: Nolberto Guthrie Discharge Problem: Volume overload, Atrial fibrillation with RVR, Hypoxia Patient Disposition: Admitted As Inpatient Discharge Instructions Interventions: ED Discharge Assessment Last Done: 07/15/24 18:16
[2024-07-15] MEDS ORDERED: POLYETHYLENE (MIRALAX) 17 GM PACK PO PRN (18:43)
[2024-07-15] MEDS ORDERED: GLUCOSE 40% GEL 15 GM TUBE PO PRN (18:43)
[2024-07-15] MEDS ORDERED: GLUCAGON FOR INJ 1 MG VIAL SQ PRN (18:43)
[2024-07-15] MEDS ORDERED: METOPROLOL TARTRATE 1 MG/ML VIAL IV PRN (18:43)
[2024-07-15] MEDS ORDERED: GLUCOSE 10 TAB/TUBE PO PRN (18:43)
[2024-07-15] MEDS ORDERED: CARBOHYDRATES FOR HYPOGLYCEMIA PO PRN (18:43)
[2024-07-15] MEDS ORDERED: DEXTROSE 50% 50 ML SYRINGE IV PRN (18:43)
[2024-07-15] MEDS: Heparin IV Adult Wt-Based Standard *NO* INITIAL Bolus Protocol IV STA (19:26)
[2024-07-15] MEDS: HEPARIN SODIUM/DEXTROSE 25,000 UNITS/500 ML BAG IV SCH (20:30)
[2024-07-15] MEDS: INSULIN ASPART PER UNIT CHARGE SC SCH (21:07)
[2024-07-15] MEDS: POTASSIUM CHLORIDE CRTAB 20 MEQ TABCR PO ONE (21:11)
[2024-07-15] MEDS: MELATONIN 3 MG TAB PO PRN (21:11)
[2024-07-15] MEDS: amLODIPine BESYLATE 5 MG TAB PO SCH (21:11)
[2024-07-15] MEDS: CALCIUM 600MG + VIT D 400 IU TAB PO SCH (21:11)
[2024-07-15] MEDS: MAGNESIUM SULFATE / D5W 1 GM/100 ML BAG IV ONE (21:24)
[2024-07-16 01:55] LABS: Hematocrit (blood only) 29.5 % (37.0-47.0); Hemoglobin 10.1 g/dl (12.0-16.0); Mean Corpuscular Hemoglobin 30.5 pg (25.0-34.0); Mean Corpuscular Hgb Conc 34.2 g/dL (32.0-36.0); Mean Corpuscular Volume 89.1 fL (80.0-100.0); Mean Platelet Volume 10.1 fL (9.4-12.4); Platelet Count 155 K/uL (130-400); RDW Coefficient of Variation 13.2 % (11.5-14.5); RDW Standard Deviation 43.2 fL (36.4-46.3); Red Blood Count 3.31 M/uL (4.20-5.40)
[2024-07-16 02:07] LABS: Calcium 8.9 mg/dl (8.6-10.3); Creatinine Clr Calc Pharmacy 73.8 ml/min; Est GFR (African American) 107.3 ml/min; Est GFR (Non-African American) 92.6 ml/min; Potassium 3.4 mmol/L (3.5-5.1)
[2024-07-16 02:44] LABS: ANTI-Xa, UFH(UnfractionatedHep 0.29 IU/ml (0.3-0.7)
--- OUTSIDE RECORDS SUMMARY | 2024-07-16 06:29 | External Medical Summary | Summary of Care ---
Author Name Unknown Organization [facility] Address [address] [place] [address] Phone [phone] Care Team Providers Care Audio/Video Engineer Name Role Phone Zuleima Garcia MD Primary Care Provider + Reason for Visit * Reason Onset Date Comments Test Results 03/06/2024 Encounter Details Date Type Department Care Team (Late st Contact Info) Description 03/06/2024 Telephone General [facility] [address] [place], [place] [phone] Dayanna Solorzano MD [address] [place], [place] [phone] Test Results Allergies Active Allergy Reactions Criticality Noted Date Comments Ezetimibe 11/28/2023 General malaise or feeling unwell Pantoprazole Hives 02/07/2022 GI upset Rosuvastatin 11/28/2023 Muscle aches/pains, fatigue Statins 11/01/2022 myalgia documented as of this encounter (statuses as of 03/06/2024) Medications Medication Sig Dispensed Refills Start Date End Date Status CYANOCOBALAMIN (VITAMIN B-12) 500 MCG Sublingual Tablet Take 2 Tablets by mouth in the morning. 0 08/18/2018 Active Calcium Carbonate-Vit D-Min (CALTRATE 600+D PLUS MINERALS) 600-800 MG-UNIT CHEWIndications:Padmini min D deficiency One tablet twice daily 60 Tab 5 10/18/2018 Active Magnesium 100 MG Oral Capsule Take 1 Capsule by mouth in the morning. 0 Active Quebeck-3 1000 MG Oral Capsule Take by mouth. 0 Active Ferrous Sulfate 325 (65 Fe) MG Oral Tablet Delayed Release Take 1 Tablet by mouth in the morning. In the morning.. 0 08/13/2021 Active Aspirin 81 MG Oral Tablet ChewableIndications: History of TIA (transient ischemic attack) Take 1 Tablet by mouth in the morning. with food.. 100 Tablet 5 08/19/2023 Active Metoprolol Succinate ER 25 MG Oral Tablet Extended Release 24 Hour (toPROL XL) Take 1 Tablet by mouth in the morning and 1 Tablet before bedtime. 180 Tablet 3 12/31/2023 Active Ramipril 10 MG Oral Capsule (Altace) Take 1 Capsule by mouth in the morning and 1 Capsule in the evening. 180 Capsule 3 12/31/2023 Active amLODIPine Besylate 5 MG Oral Tablet (Norvasc)Indications :Hypertension goal BP (blood pressure) < 130/80 Take 1 Tablet by mouth in the morning. 90 Tablet 3 03/04/2024 Active documented as of this encounter (statuses as of 03/06/2024) Active Problems Problem Noted Date Diagnosed Date Hyperlipidemia LDL goal <70 08/19/2023 H/O mitral valve repair 12/08/2019 Hx of tricuspid valve repair 12/08/2019 Paroxysmal A-fib 08/15/2019 Hypertension goal BP (blood pressure) < 130/80 documented as of this encounter (statuses as of 03/06/2024) Resolved Problems Problem Noted Date Diagnosed Date Resolved Date HTN, goal below 130/80 08/12/201808/16 documented as of this encounter (statuses as of 03/06/2024) Immunizations Name Administration Dates Next Due COVID-19 mRNA, LNP-s, No Pre serve, 2-Dose Series (xoompark) 11/04/2021,02/14/2021,01/24/2021 Covid-19, Mrna, Lnp-s, Pf, B ivalent, 30 Mcg, IM, 12 yrs and above (xoompark) 08/25/2022 Pneumococcal Conjugate Vacc, 13 Valent (Prevnar) 05/10/2018 Pneumococcal Polysaccharide PPV23 (Pneumovax) 05/10/2018 Season Influenza, Quad, PF, Adjuvanted, 65+ Yrs, IM (FLUAD) 08/21/2023,09/02/2022 Seasonal Influenza Virus Vac cine, Unspecified Formulation 08/15/2019,05/10/2018,05/08/2018 Seasonal Influenza, Quadriva lent Hd (Fluzone Hd) 10/06/2021 Seasonal Influenza, Quadrivalent, ID 09/03/2020 Seasonal Influenza, Quadriva lent, No Preserve, IM 05/10/2018,05/08/2018 Seasonal Influenza, Trivalen t, Adjuvanted, 65+ yrs 08/15/2019 TDAP (age 11 and older)(Adacel) 05/10/2018 Zoster Vaccine Recombinant (Shingrix) 06/09/2018 ,05/10/2018 documented as of this encounter Social History Tobacco Use Types Packs/Day Years Used Date Smoking Tobacco: Never Smokeless Tobacco: Never Alcohol Use Standard Drinks/Week Comments No 0 (1 standard drink = 0.6 oz pur e alcohol) PHQ-2 Answer Date Recorded PHQ Adult Total Score 0 11/01/2022 Hunger Vital Sign Answer Date Recorded Within the past 12 months, y ou worried that your food would run out before you got the money to buy more. Never true 11/18/20 21 Within the past 12 months, t he food you bought just didn't last and you didn't have money to get more. Never true 11/18/2021 Sex and Gender Information Value Date Recorded Sex Assigned at Female 08/16/2020 9:31 AM EDT Gender Identity Female 08/16/2020 9:31 AM EDT Sexual Orientation Straight 08/16/2020 9: 31 AM EDT Job Start Date Occupation Industry Not on file Not on file Not on file documented as of this encounter Miscellaneous Notes * Telephone Encounter - Ochoa Long RN - 03/06/2024 3:05 PM EDT Images from the original note were not included. Noted. Closing; inbasket clean-up. Provider to address: n/a Reason for Call: Test Results Contact: My [facility] Contact Type: Follow-up Outcome: See above Face to face time spent with Patient (minutes): 0 Total Time including non face to face (minutes): 10 Ochoa Long [employer] Primary Care Nurse Coordinator [facility] (Helping out) * Telephone Encounter - Perla Hope LPN - 03/06/2024 10:53 AM EDT Patient's daughter Latrice aware and verbalized understanding, will comply. * Telephone Encounter - Aisha Malloy LPN - 03/06/2024 9:03 AM EDT Left message for patient's daughter to call back regarding message below. * Telephone Encounter - Aisha Malloy LPN - 03/06/2024 9:02 AM EDT ----- Message from Dayanna Solorzano MD sent at 03/06/2024 8:31 AM EDT ----- CXR with slightly large heart which is as expected from moderate mitral valve leaking but no obvious heart failure. I know she just had echo but suggest to get dobutamine stress echo to r/o atypical angina causing SOB on exertion . Forwarding to Dr Polanco for his input as well Labs with sodium on low side of normal which seems she always has and from drinking too much fluid and decrease to 45 oz/day or 1.5 L/day as discussed . slightly low iron level and mild anemia . Make sure she is taking iron supplement daily and if so increase to twice a day - caution for constipation Vit B12 high so if taking supplement stop it . Urine normal and hope frequency better after reducing fluid in take documented in this encounter Plan of Treatment Upcoming Encounters Date Type Department Care Team (Late st Contact Info) Description 04/02/2024 9:30 AM EDT Office Visit Cardiology, [address] [place] [phone] Ekaterina Storey CRNP [address] [place] [id number] 04/08/2024 11:00 AM EDT Office Visit General Internal Medicine [facility] [address] [facility] [place] [address] Zuleima Garcia MD 200 [facility] [place] [id number] Scheduled Procedures Name Priority Associated Diagnoses Date/Ti me COLONOSCOPY FLEXIBLE PROXIMA L DIAGNOSTIC Recall Iron deficiency anemia due to chronic blood loss Health Maintenance Due Date Last Done Comments DXA Scan 1951 Fecal Occult Blood Test 1996 Sigmoidoscopy 1996 Cologuard 08/28/2021 08/28/2018 Depression Screening 11/01/2023 11/01/2022 Mammogram 08/14/2024 08/14/2023, 07/27, 07/06/2022, Additional history exists GFR 03/04/2025 03/04/2024, 0 07/2024, 08/24/2023, Additional history exists Albumin/Creatinine Ratio 11/03/2025 11/03/2022, 05/26 DTaP,Tdap,and Td Vaccines (2 - Td or Tdap) 05/10/2028 05/10/2018 Lipid Panel 03/04/2029 03/04/2024, 07/28, 11/03/2022, Additional history exists Colonoscopy 08/07/2031 08/07/2021, 08/07/2021 Colorectal Cancer Screening 08/07/2031 Pneumococcal Vaccine: 65+ Years Completed 05/10/2018, 05/10/2018 Zoster Vaccines Completed 06/09/2018, 05/10/2018 Influenza Vaccine (FLU shot) Completed , 09/02/2022, 10/06/2021, Additional history exists COVID-19 Vaccine Completed 10/13/2023, 11/2021, 11/04/2021, Additional history exists GARDASIL-HPV IMMUNIZATION SERIES Aged Out No longer eligible based on patient's age to complete this topic Hepatitis B Aged Out No longer eligi ble based on patient's age to complete this topic MENINGOCOCCAL (MENACTRA/MENVEO) Aged Out No longer eligible based on patient's age to complete this topic documented as of this encounter Medical Devices Not on filedocumented as of this encounter Care Teams Audio/Video Engineer Relationship Specialty Start Date End Date Zuleima Garcia MD [address] [facility] [place] [address] PCP - General Internal Medicine 08/12/18 documented as of this encounter
--- OUTSIDE RECORDS SUMMARY | 2024-07-16 06:29 | External Medical Summary ---
Author Name Unknown Address Unknown Organization [id number]:[facility] [address] [place] [address] Laboratory Report Ordering Provider Test Date Status JERRICA DC 03/04/2024 12:56:31 Final Observation Date Value Abnormality Reference (Units ) Status BUN 03/04/2024 12:56:31 9 6-20 (mg/dL) Final Creatinine 03/04/2024 12:56:31 0.6 0.5-1.0 (mg/dL) Final Glomerular filtration rate/1.73 sq M.predicted [Volume Rate/Area] in Serum, Plasma or Blood by Creatinine-based formula (CKD-EPI) 03/04/2024 12:56:31 >90 >=60 (mL/min) Final eGFR is calculated based on the CKD-EPI 2020 equation Sodium 03/04/2024 12:56:31 135 135-146 (m mol/L) Final Potassium 03/04/2024 12:56:31 4.5 3.5-5.1 (m mol/L) Final Cl 03/04/2024 12:56:31 97 Below low normal 98- 107 (mmol/L) Final CO2 03/04/2024 12:56:31 27 22-32 (mmo l/L) Final Anion gap 03/04/2024 12:56:31 11 7-15 (mmol /L) Final Glucose 03/04/2024 12:56:31 111 70-120 (mg /dL) Final Albumin 03/04/2024 12:56:31 3.7 Below low normal 3.8 -5.0 (g/dL) Final AST (Aspartate aminotransferase) 03/04/2024 12:56:31 22 10-35 (U/L) Fin al Alk Phos 03/04/2024 12:56:31 70 35-130 (U/ L) Final Bilirubin, Total 03/04/2024 12:56:31 <0.2 <=1 .2 (mg/dL) Final Calcium 03/04/2024 12:56:31 10.0 8.4-10.2 ( mg/dL) Final Protein 03/04/2024 12:56:31 8.2 6.0-8.3 (g /dL) Final ALT (Alanine aminotransferase) 03/04/2024 12:56:31 17 10-35 (U/L) Shakeel dougherty Performing Location [facility] [place] [address]
--- OUTSIDE RECORDS SUMMARY | 2024-07-16 06:29 | External Medical Summary | Summary of Care ---
Author Name Unknown Organization [facility] Address [address] [place] [address] Phone [phone] Care Team Providers Care Grease And Tallow Pumper Name Role Phone Zuleima Garcia MD Primary Care Provider + Reason for Visit * Reason Comments Fatigue Has been c/o being t ired, lightheaded/dizzy. Daughter states her heart also seems like it's racing. Has been going on more often since November. Has been short of breath with exertion over the past 2-3 weeks also. Encounter Details Date Type Department Care Team (Late st Contact Info) Description 03/04/2024 11:40 AM EDT Office Visit General Internal Medicine [facility] [address] [place] [address] Dayanna Solorzano MD [address] [place] [address] Malaise and fatigue*; Hypertension goal BP (blood pressure) < 130/80; LAWRENCE (dyspnea on exertion); Palpitations; Dizziness; Urinary urgency; Paroxysmal A-fib (HCC); Hyperlipidemia LDL goal <70; Hx of tricuspid valve repair; H/O mitral valve repair; Iron deficiency anemia, unspecified iron deficiency anemia type Allergies Active Allergy Reactions Criticality Noted Date Comments Ezetimibe 11/28/2023 General malaise or feeling unwell Pantoprazole Hives 02/07/2022 GI upset Rosuvastatin 11/28/2023 Muscle aches/pains, fatigue Statins 11/01/2022 myalgia documented as of this encounter (statuses as of 03/15/2024) Medications Medication Sig Dispensed Refills Start Date End Date Status CYANOCOBALAMIN (VITAMIN B-12) 500 MCG Sublingual Tablet Take 2 Tablets by mouth in the morning. 0 08/18/2018 Active Calcium Carbonate-Vit D-Min (CALTRATE 600+D PLUS MINERALS) 600-800 MG-UNIT CHEWIndications :Vitamin D deficiency One tablet twice daily 60 Tab 5 10/18/2018 Active Magnesium 100 MG Oral Capsule Take 1 Capsule by mouth in the morning. 0 Active Boron-3 1000 MG Oral Capsule Take by mouth. 0 Active Ferrous Sulfate 325 (65 Fe) MG Oral Tablet Delayed Release Take 1 Tablet by mouth in the morning. In the morning.. 0 08/13/2021 Active Aspirin 81 MG Oral Tablet ChewableIndicat ions:History of TIA (transient ischemic attack) Take 1 [...] Active amLODIPine Besylate 5 MG Oral Tablet (Norvasc)Indica tions:Hypertens ion goal BP (blood pressure) < 130/80 Take 1 Tablet by mouth in the morning. 90 Tablet 3 03/04/2024 Active Rosuvastatin Calcium 5 MG Oral Tablet (Crestor)Indica tions:Hyperlipi demia LDL goal <70 Take 1 Tablet by mouth in the morning. 30 Tablet 5 08/22/2023 4 Discontinued Ezetimibe 10 MG Oral Tablet (Zetia) Take 1 Tablet by mouth in the morning. 34 Tablet 6 11/13/2023 4 Discontinued amLODIPine Besylate 5 MG Oral Tablet (Norvasc)Indica tions:Hypertens ion goal BP (blood pressure) < 130/80 TAKE ONE TABLET BY MOUTH EVERY DAY 90 Tablet 3 02/08/2024 4 Discontinued(Refi ll) documented as of this encounter (statuses as of 03/15/2024) Active Problems Problem Noted Date Diagnosed Date Hyperlipidemia LDL goal <70 08/19/2023 H/O mitral valve repair 12/08/2019 Hx of tricuspid valve repair 12/08/2019 Paroxysmal A-fib 08/15/2019 Hypertension goal BP (blood pressure) < 130/80 documented as of this encounter (statuses as of 03/15/2024) Resolved Problems Problem Noted Date Diagnosed Date Resolved Date HTN, goal below 130/80 08/12/201808/16 documented as of this encounter (statuses as of 03/15/2024) Immunizations Name Administration Dates Next Due COVID-19 mRNA, LNP-s, No Pre serve, 2-Dose Series ([employer]) 11/04/2021,02/14/2021,01/24/2021 Covid-19, Mrna, Lnp-s, Pf, B ivalent, 30 Mcg, IM, 12 yrs and above ([employer]) 08/25/2022 Pneumococcal Conjugate Vacc, 13 Valent (Prevnar) [...] on file documented as of this encounter Last Filed Vital Signs Vital Sign Reading Time Taken Comments Blood Pressure 122/66 03/04/2024 11:35 AM EDT Pulse 68 03/04/2024 11:35 AM EDT Temperature 36.3 C (97.4 F) 03/04/2024 11:35 AM E DT Respiratory Rate - - Oxygen Saturation 99% 03/04/2024 11:35 AM EDT Inhaled Oxygen Concentration - - Weight 60.5 kg (133 lb 6.4 oz) 03/04/2024 11:35 AM EDT Height 162.6 cm (5' 4") 03/04/2024 11:35 AM EDT Body Mass Index 22.9 03/04/2024 11:35 AM EDT documented in this encounter Progress Notes * Dayanna Solorzano MD - 03/15/2024 11:26 AM EDT Images from the original note were not included. History of Present Illness Hanh Roman is a 73 year old female that presents for Fatigue (Has been c/o being tired, lightheaded/dizzy. Daughter states her heart also seems like it's racing. Has been going on more often since November. Has been short of breath with exertion over the past 2-3 weeks also.) 73 year old YOfemale with PMH as listed below presents here for evaluation of fatigue , High BP andmultiple other issue . Duration of illness: 3-4 months Symptoms present : -Has been c/o being tired, lightheaded/dizzy. Dizziness happens while walking , not sure if she turns her head,also in am while getting it . Drinks a lot fo fluid torsten water - 60-80 oz/day -throat clearing and phlegm but no obvious sinus congestion -goes to [place] a lot which she thinks from drinking too much -Daughter states her heart also seems like it's racing. Has been going on more often since November.Whenever that happens her BP goes up and been higher at home . BP normal Today and for last couple of times . Doesn't drink too much coffee -Has been short of breath with exertion over the past 2-3 weeks also. No CP or sweating or lightheadedness with it . -some anxiety and trouble sleeping but manageable . Symptoms not present: depression , panic attack, No cough, f/c, night sweats , GERD symptoms . Leg swelling , stomach pain , sinus congestion or cough Have same similar thing in past : fatigue , palpitation intermittent in past . Also LAWRENCE at times but nto consistent Since symptoms started things getting : worse Used anything for this illness: drinks a lot of fluid and on BP meds Other concerns or issues present : pt worries that something going on Physical Exam Vitals: 03/04/24 1135 Temp: 36.3 C (97.4 F) Pulse: 68 SpO2: 99% BP: 122/66 BMI: 22.89 BP Readings from Last 3 Encounters: 03/04/24 122/66 11/28/23 132/72 11/13/23 136/88 Physical Exam Constitutional: General: She is not in acute distress. Appearance: Normal appearance. She is normal weight. HENT: Head: Normocephalic. Right Ear: Tympanic membrane, ear canal and external ear normal. Left Ear: Tympanic membrane, ear canal and external ear normal. Nose: Congestion and rhinorrhea present. Mouth/Throat: Mouth: Mucous membranes are moist. Pharynx: Posterior oropharyngeal erythema present. No oropharyngeal exudate. Comments: PND Cardiovascular: Rate and Rhythm: Normal rate and regular rhythm. Pulses: Normal pulses. Heart sounds: Normal heart sounds. No murmur heard. Pulmonary: Effort: Pulmonary effort is normal. No respiratory distress. Breath sounds: Normal breath sounds. No wheezing. Abdominal: General: Bowel sounds are normal. Palpations: Abdomen is soft. Musculoskeletal: General: No swelling or tenderness. Normal range of motion. Cervical back: Normal range of motion. No rigidity or tenderness. Right lower leg: No edema. Left lower leg: No edema. Lymphadenopathy: Cervical: No cervical adenopathy. Skin: General: Skin is warm. Findings: No lesion. Neurological: Mental Status: She is alert. Mental status is at baseline. Psychiatric: Comments: Seems a bit anxious I have reviewed the following results: Assessment and Plan Malaise and fatigue Could be lack of sleep and some anxiety - TSH WITH FREE T4 IF INDICATED; Future - COMPREHENSIVE METABOLIC PANEL; Future - MAGNESIUM; Future - URINALYSIS, REFLEX TO CULTURE (NOT FOR NEUTROPENIC PATIENTS); Future Hypertension goal BP (blood pressure) < 130/80 - amLODIPine Besylate 5 MG Oral Tablet (Norvasc); Take 1 Tablet by mouth in the morning. LAWRENCE (dyspnea on exertion) - XR CHEST 2 VIEWS Palpitations - CBC; Future Dizziness - FOLIC ACID; Future - VITAMIN B12; Future Urinary urgency Suggest to drink no more than 50 oz/day which might help with nocturia and sleep . Will r/o UTI - URINALYSIS, REFLEX TO CULTURE (NOT FOR NEUTROPENIC PATIENTS); Future Paroxysmal A-fib (HCC) Hyperlipidemia LDL goal <70 Hx of tricuspid valve repair H/O mitral valve repair Iron deficiency anemia, unspecified iron deficiency anemia type - FERRITIN; Future - IRON SCREEN, INCLUDING TIBC; Future Wrap-Up Time: I spent a total of 40-54 minutes (exact time 45 mins) on the date of service in preparation, delivery, and documentation of the care provided to Hanh Roman excluding any time spent in the performance of separately billed services. documented in this encounter Nursing Notes * Aisha Malloy LPN - 03/04/2024 11:35 AM EDT Chief Complaint Patient presents with Fatigue Has been c/o being tired, lightheaded/dizzy. Daughter states her heart also seems like it's racing.Has been going on more often since November. Has been short of breath with exertion over the past 2-3 weeks also. documented in this encounter Plan of Treatment Upcoming Encounters Date Type Department Care Team (Late st Contact Info) Description 04/02/2024 9:30 AM EDT Office Visit Cardiology, [facility] [address] [place] [address] Ekaterina Storey CRNP [address] [place] [address] 04/08/2024 11:00 AM EDT Office Visit General Internal Medicine [facility] [address] [facility] [place] [address] Zuleima Garcia MD [address] [facility] [place] [address] Scheduled Procedures Name Priority Associated Diagnoses Date/Ti me COLONOSCOPY FLEXIBLE PROXIMA L DIAGNOSTIC Recall Iron deficiency anemia due to chronic blood loss Health Maintenance Due Date Last Done Comments DXA Scan 1951 Fecal Occult Blood Test 1996 Sigmoidoscopy 1996 Cologuard 08/28/2021 08/28/2018 Depression Screening 11/01/2023 11/01/2022 Mammogram 08/14/2024 08/14/2023, 07/27, 07/06/2022, Additional history exists GFR 03/04/2025 03/04/2024, 07/2024, 08/24/2023, Additional history exists Albumin/Creatinine Ratio [...] Not on filedocumented as of this encounter Procedures Procedure Name Priority Date/Time Associated Diagnosis Comments XR CHEST 2 VIEWS STAT 03/04/2024 12:5 7 PM EDT LAWRENCE (dyspnea on exertion) documented in this encounter Results * XR CHEST 2 VIEWS (03/04/2024 12:57 PM EDT) Anatomical Region Laterality Modality Chest Computed Radiogr aphy 03/04/2024 1:35 PM EDT Impressions 03/04/2024 1:33 PM EDT IMPRESSION Stable enlarged cardiac silhouette. No acute pulmonary abnormality. Narrative 03/04/2024 1:33 PM EDT EXAM XR CHEST 2 VIEWS-03/04/2024 12:57 pm HISTORY SOB COMPARISON Chest x-ray dated 11/28/2023 TECHNIQUE PA and lateral chest radiographs FINDINGS Median sternotomy wires and prosthetic valves are again noted. The cardiac silhouette is mildly enlarged, stable. There are no pulmonary consolidations, pleural effusions or pneumothorax. Moderate degenerative changes of the thoracic spine are noted. Procedure Note Marley Magdaleno MD - 03/04/2024 EXAM XR CHEST 2 VIEWS-03/04/2024 12:57 pm HISTORY SOB COMPARISON Chest x-ray dated 11/28/2023 TECHNIQUE PA and lateral chest radiographs FINDINGS Median sternotomy wires and prosthetic valves are again noted. Thecardiac silhouette is mildly enlarged, stable. There are no pulmonaryconsolidations, pleural effusions or pneumothorax. Moderate degenerativechanges of the thoracic spine are noted. IMPRESSION IMPRESSION Stable enlarged cardiac silhouette. No acute pulmonary abnormality. Dayanna Solorzano MD RADIOLOGY (RAD GENER AL) * (ABNORMAL) VITAMIN B12 (03/04/2024 12:56 PM EDT) Pathologist [facility] Vitamin B12 >2,000(H) 232 - 1,245 pg/mL 03/05/2024 12:37 AM EDT [facility] Blood Venous blood specimen / Unknown Venipuncture / Unknown 03/04/2024 12:56 PM EDT 03/04/2024 12:56 PM EDT Dayanna Solorzano MD LAB BLOOD ORDERABLES Performing Organization Address City/[facility]/ZIP Co de Phone Number [facility] [address] [place] [address] * FOLIC ACID (03/04/2024 12:56 PM EDT) [facility] Folic Acid >20.0 >4.5 ng/mL 03/05/2024 10:34 PM EDT [facility] Blood Venous blood specimen / Unknown Venipuncture / Unknown 03/04/2024 12:56 PM EDT 03/04/2024 12:56 PM EDT Dayanna Solorzano MD LAB BLOOD ORDERABLES Performing Organization Address [facility] de Phone Number [facility] [address] [place] [address] * (ABNORMAL) IRON SCREEN, INCLUDING TIBC (03/04/2024 12:56 PM EDT) [facility] Iron 41 33 - 151 ug/dL 03/04/2024 11:33 PM EDT [facility] Iron Binding Capacity 298 250 - 425 ug/dL 03/04/2024 11:33 PM EDT [facility] Transferrin Saturation Percent 14(L) 15 - 55 % 03/04/2024 11:33 PM EDT [facility] Blood Venous blood specimen / Unknown Venipuncture / Unknown 03/04/2024 12:56 PM EDT 03/04/2024 12:56 PM EDT Dayanna Solorzano MD LAB BLOOD ORDERABLES [facility] [address] [place] [address] * FERRITIN (03/04/2024 12:56 PM EDT) [facility] Ferritin 140 13 - 150 ng/mL 03/05/2024 12:37 AM EDT LAB[facility]ATORY [facility] Comment:Postmenopausal women have higher ferritin levels than pre-menopausal women. The above reference interval is based on pre-menopausal women. Blood Venous blood specimen / Unknown Venipuncture / Unknown 03/04/2024 12:56 PM EDT 03/04/2024 12:56 PM EDT Dayanna Solorzano MD LAB BLOOD ORDERABLES LAB[facility]ATORY [facility] [address] [place] [address] * (ABNORMAL) CBC (03/04/2024 12:56 PM EDT) [facility] WBC 6.01 4.00 - 10.80 K/uL 03/04/2024 1:04 PM EDT [facility] 56 RBC 3.51 3.85 - 5.15 M/uL 03/04/2024 1:04 PM EDT [facility] 56 HGB 10.8(L) 12.0 - 15.3 g/dL 03/04/2024 1:04 PM EDT [facility] 56 HCT 32.8(L) 36.0 - 45.2 % 03/04/2024 1:04 PM EDT [facility] 56 MCV 93.4 81.5 - 97.5 fL 03/04/2024 1:04 PM EDT [facility] 56 MCH 30.8 27.0 - 34.0 pg 03/04/2024 1:04 PM EDT [facility] 56 MCHC 32.9 32.0 - 36.0 g/dL 03/04/2024 1:04 PM EDT [facility] 56 RDW 13.0 11.5 - 15.5 % 03/04/2024 1:04 PM EDT [facility] 56 PLT 185 140 - 400 K/uL 03/04/2024 1:04 PM EDT [facility] 56 MPV 9.2 6.6 - 11.1 fL 03/04/2024 1:04 PM EDT [facility] 56 Blood Venous blood specimen / Unknown Venipuncture / Unknown 03/04/2024 12:56 PM EDT 03/04/2024 12:56 PM EDT Dayanna Solorzano MD LAB BLOOD ORDERABLES [facility] 56 [address] [place] [address] * MAGNESIUM (03/04/2024 12:56 PM EDT) Magnesium 2.1 1.5 - 2.6 mg/dL 03/04/2024 2:30 PM EDT [address] Blood Venous blood specimen / Unknown Venipuncture / Unknown 03/04/2024 12:56 PM EDT 03/04/2024 12:56 PM EDT Dayanna Solorzano MD LAB BLOOD ORDERABLES [place] [address] [address] [place] [address] * (ABNORMAL) COMPREHENSIVE METABOLIC PANEL (03/04/2024 12:56 PM EDT) BUN 9 6 - 20 mg/dL 03/04/2024 2:30 PM EDT [facility] 56 Creatinine 0.6 0.5 - 1.0 mg/dL 03/04/2024 2:30 PM EDT [facility] 56 Estimated Glomerular Filtration Rate >90 >=60 mL/min 03/04/2024 2:30 PM EDT [facility] 56 Comment:eGFR is calculated b ased on the CKD-EPI 2020 equation Sodium 135 135 - 146 mmol/L 03/04/2024 2:30 PM EDT [facility] 56- Potassium 4.5 3.5 - 5.1 mmol/L 03/04/2024 2:30 PM EDT [facility] 56 Chloride 97(L) 98 - 107 mmol/L 03/04/2024 2:30 PM EDT [facility] 56 CO2 27 22 - 32 mmol/L 03/04/2024 2:30 PM EDT [facility] 56 Anion Gap 11 7 - 15 mmol/L 03/04/2024 2:30 [address]T [address] Glucose 111 70 - 120 mg/dL 03/04/2024 2:30 [address] EDT [address] Albumin 3.7(L) 3.8 - 5.0 g/dL 03/04/2024 2:[address] AST 22 10 - 35 U/L 03/04/2024 2:[address]T [address] Alkaline Phosphatase 70 35 - 130 U/L 03/04/2024 2:30 PM EDT [address] Bilirubin, Total <0.2 <=1.2 mg/dL 03/04/2024 2:30 PM EDT [address] Calcium 10.0 8.4 - 10.2 mg/dL 03/04/2024 2:[address]T [address] Protein 8.2 6.0 - 8.3 g/dL 03/04/2024 2:[address]T [address] ALT 17 10 - 35 U/L 03/04/2024 2:30 PM EDT [facility] 56 Blood Venous blood specimen / Unknown Venipuncture / Unknown 03/04/2024 12:56 PM EDT 03/04/2024 12:56 PM EDT Dayanna Solorzano MD LAB BLOOD ORDERABLES [facility] [address]- [address] [place] [address] * TSH WITH FREE T4 IF INDICATED (03/04/2024 12:56 PM EDT) TSH 1.27 0.27 - 4.20 uIU/mL 03/05/2024 12:37 AM EDT [facility] Blood Venous blood specimen / Unknown Venipuncture / Unknown 03/04/2024 12:56 PM EDT 03/04/2024 12:56 PM EDT Dayanna Solorzano MD LAB BLOOD ORDERABLES [facility]AT[facility] [address] [place] [address] documented in this encounter Visit Diagnoses Diagnosis Malaise and fatigue- Primary Other malaise and fatigue Hypertension goal BP (blood pressure) < 130/80 Unspecified essential hypertension LAWRENCE (dyspnea on exertion) Other dyspnea and respiratory abnormality Palpitations Dizziness Dizziness and giddiness Urinary urgency Urgency of urination Paroxysmal A-fib (HCC) Atrial fibrillation Hyperlipidemia LDL goal <70 Other and unspecified hyperlipidemia Hx of tricuspid valve repair Personal history of surgery to heart and great vessels, presenting hazards to health H/O mitral valve repair Personal history of surgery to heart and great vessels, presenting hazards to health Iron deficiency anemia, unspecified iron deficiency anemia type documented in this encounter Care Teams Grease And Tallow Pumper Relationship Specialty Start Date End Date Zuleima Garcia MD [address] [place] [address] PCP - General Internal Medicine 08/12/18 documented as of this encounter
--- OUTSIDE RECORDS SUMMARY | 2024-07-16 06:29 | External Medical Summary | Summary of Care ---
Author Name Unknown Organization [facility] Address [address] [place] [address] Phone [phone] Care Team Providers Care Glass Deposition Tender Name Role Phone Zuleima Garcia MD Primary Care Provider + Reason for Visit * Reason Comments Outpatient Testing Encounter Details Date Type Department Care Team (Late st Contact Info) Description 03/04/2024 12:50 PM EDT Laboratory Laboratory [facility] [address] [place] [address] [place], Lab [facility] [address] [place] [address] Dyslipidemia; Malaise and fatigue; Palpitations; Iron deficiency anemia, unspecified iron deficiency anemia type; Urinary urgency; Dizziness Allergies Active Allergy Reactions Criticality Noted Date Comments Ezetimibe 11/28/2023 General malaise or feeling unwell Pantoprazole Hives 02/07/2022 GI upset Rosuvastatin 11/28/2023 Muscle aches/pains, fatigue Statins 11/01/2022 myalgia documented as of this encounter (statuses as of 03/04/2024) Medications Medication Sig Dispensed Refills Start Date [...] by mouth in the morning. 0 Active Oxbow-3 1000 MG Oral Capsule Take by mouth. [...] as of this encounter (statuses as of 03/04/2024) Active Problems Problem Noted Date Diagnosed Date Hyperlipidemia LDL goal <70 08/19/2023 H/O mitral valve repair 12/08/2019 Hx of tricuspid valve repair 12/08/2019 Paroxysmal A-fib 08/15/2019 Hypertension goal BP (blood pressure) < 130/80 documented as of this encounter (statuses as of 03/04/2024) Resolved Problems Problem Noted Date Diagnosed Date Resolved Date HTN, goal below 130/80 08/12/201808/16 documented as of this encounter (statuses as of 03/04/2024) Immunizations Name Administration Dates Next Due COVID-19 mRNA, LNP-s, No Pre serve, 2-Dose Series ([employer]) 11/04/2021,02/14/2021,01/24/2021 Covid-19, Mrna, Lnp-s, Pf, B ivalent, 30 Mcg, IM, 12 yrs and above ([employer]) 08/25/2022 Pneumococcal Conjugate Vacc, 13 Valent (Prevnar) [...] on file documented as of this encounter Plan of Treatment Upcoming Encounters Date Type Department Care Team (Late st Contact Info) Description 04/02/2024 9:30 AM EDT Office Visit Cardiology, [facility] [address] [address] Ekaterina Storey CRNP [address] [place] [address] 04/08/2024 11:00 AM EDT Office Visit General Internal Medicine [facility] [address] [place] [address] Zuleima Garcia MD [facility] [place] [address] Pending Results Name Type Priority Associated Diagnoses Date /Time LIPID PANEL WITH DIRECT LDL IF TG IS HIGH Lab Routine Dyslipidemia 03/04/2024 12:56 PM EDT TSH WITH FREE T4 IF INDICATED Lab Routine Malaise and fatigue 03/04/2024 12:56 PM EDT COMPREHENSIVE METABOLIC PANEL Lab Routine Malaise and fatigue 03/04/2024 12:56 PM EDT MAGNESIUM Lab Routine Malaise and fatigue 03/04/2024 12:56 PM EDT FERRITIN Lab Routine Iron deficiency anemia, unspecified iron deficiency anemia type 03/04/2024 12:56 PM EDT IRON SCREEN, INCLUDING TIBC Lab Routine Iron deficiency anemia, unspecified iron deficiency anemia type 03/04/2024 12:56 PM EDT URINALYSIS, REFLEX TO CULTURE (NOT FOR NEUTROPENIC PATIENTS) Lab Routine Malaise and fatigue Urinary urgency 03/04/2024 12:56 PM EDT FOLIC ACID Lab Routine Dizziness 03/04/2024 12:56 PM EDT VITAMIN B12 Lab Routine Dizziness 03/04/2024 12:56 PM EDT URINALYSIS, REFLEX TO CULTURE (CUP ONLY) Lab Routine Malaise and fatigue Urinary urgency 03/04/2024 12:56 PM EDT URINALYSIS, REFLEX TO CULTURE Lab Routine Malaise and fatigue Urinary urgency 03/04/2024 12:56 PM EDT Scheduled Procedures Name Priority Associated Diagnoses Date/Ti me COLONOSCOPY FLEXIBLE PROXIMA L DIAGNOSTIC Recall Iron deficiency anemia due to chronic blood loss Health Maintenance Due Date Last Done Comments DXA Scan 1951 Fecal Occult Blood Test 1996 Sigmoidoscopy 1996 Cologuard 08/28/2021 08/28/2018 Depression Screening 11/01/2023 11/01/2022 Mammogram 08/14/2024 08/14/2023, 07/27, 07/06/2022, Additional history exists GFR 12/03/2024 12/03/2023, 07/28, 11/03/2022, Additional history exists Albumin/Creatinine Ratio 11/03/2025 11/03/2022, 05/26 DTaP,Tdap,and Td Vaccines (2 - Td or Tdap) 05/10/2028 05/10/2018 Lipid Panel 08/24/2028 08/24/2023, 10/25, 06/03/2021, Additional history exists Colonoscopy 08/07/2031 08/07/2021, 08/07/2021 [...] Procedure Name Priority Date/Time Associated Diagnosis Comments CBC Routine 03/04/2024 12:56 PM EDT Palpitations documented in this encounter Results * (ABNORMAL) CBC (03/04/2024 12:56 PM EDT) WBC 6.01 4.00 - 10.80 K/uL 03/04/2024 1:04 PM EDT LABORATORY [place] 56-02 RBC 3.51 3.85 - 5.15 M/uL 03/04/2024 1:04 PM EDT LAB[facility]ORY [facility] 56-02 HGB 10.8(L) 12.0 - 15.3 g/dL 03/04/2024 1:04 PM EDT [facility] 56-02 HCT 32.8(L) 36.0 - 45.2 % 03/04/2024 1:04 PM EDT [facility] 56 MCV 93.4 81.5 - 97.5 fL 03/04/2024 1:04 PM EDT [facility] 56- MCH 30.8 27.0 - 34.0 pg 03/04/2024 1:04 PM EDT [facility] 56 MCHC 32.9 32.0 - 36.0 g/dL 03/04/2024 1:04 PM EDT [facility] 56 RDW 13.0 11.5 - 15.5 % 03/04/2024 1:04 PM EDT [facility] 56 PLT 185 140 - 400 K/uL 03/04/2024 1:04 PM EDT [facility] 56 MPV 9.2 6.6 - 11.1 fL 03/04/2024 1:04 PM EDT [facility] 56 Blood Venous blood specimen / Unknown Venipuncture / Unknown 03/04/2024 12:56 PM EDT 03/04/2024 12:56 PM EDT Dayanna Solorzano MD LAB BLOOD ORDERABLES Performing Organization Address City/State/[facility] Co de Phone Number [facility] 56 [address] [place] [address] documented in this encounter Visit Diagnoses Diagnosis Dyslipidemia Other and unspecified hyperlipidemia Malaise and fatigue Other malaise and fatigue Palpitations Iron deficiency anemia, unspecified iron deficiency anemia type Urinary urgency Urgency of urination Dizziness Dizziness and giddiness documented in this encounter Care Teams Glass Deposition Tender Relationship Specialty Start Date End Date [facility]ima Garcia MD [address] [facility] [address] PCP - General Internal Medicine 08/12/18 documented as of this encounter
--- OUTSIDE RECORDS SUMMARY | 2024-07-16 06:29 | External Medical Summary ---
Author Name Unknown Address Unknown Organization [id number]:LAB[facility]ATORY [facility] [place] - [address] [place] [address] Laboratory Report Ordering Provider Test Date Status JERRICA DC 03/04/2024 12:56:31 Final Observation Date Value Abnormality Reference (Units ) Status Vitamin B12 03/04/2024 12:56:31 >2000 Above high normal 232-1245 (pg/mL) Final Performing Location [facility] [place] - [address] [place] [address]
--- OUTSIDE RECORDS SUMMARY | 2024-07-16 06:29 | External Medical Summary | Summary of Care ---
Author Name Unknown Organization [facility] Address [address] [place] [address] Phone [phone] Care Team Providers Care Utility Technician Name Role Phone Zuleima Garcia MD Primary Care Provider + Reason for Referral * Precert (Within 10 days (routine)) - Authorized Specialty Diagnoses / Procedures Referred By Contac t Referred To Contact Cardiac Studies Diagnoses S/P mitral valve repair SBE (subacute bacterial endocarditis) prophylaxis candidate PAF (paroxysmal atrial fibrillation) (HCC) HTN, goal below 140/90 Statin intolerance Dyslipidemia, goal LDL below 100 Prolonged QT interval Procedures ECHO, COMPLETE (2D), TRANS-THORACIC Ekaterina Storey CR[facility] [address] [facility] [address] Referral ID Status Reason Start Date Expiration Date V isits Requested Visits Authorized [id number] Authorized Precert 04/02/2024 999 999 Reason for Visit * Reason Comments Follow Up Encounter Details Date Type Department Care Team (Late st Contact Info) Description 04/02/2024 9:30 AM EDT Office Visit Cardiology, [facility] [address] [facility] [address] [facility]ater[facility] [address] [facility] [address] S/P mitral valve repair*; SBE (subacute bacterial endocarditis) prophylaxis candidate; PAF (paroxysmal atrial fibrillation) ([facility]); HTN, goal below 140/90; Statin intolerance; Dyslipidemia, goal LDL below 100; Prolonged QT interval Allergies Active Allergy Reactions Criticality Noted Date Comments Ezetimibe 11/28/2023 General malaise or feeling unwell Pantoprazole Hives 02/07/2022 GI upset Rosuvastatin 11/28/2023 Muscle aches/pains, fatigue Statins 11/01/2022 myalgia documented as of this encounter (statuses as of 04/02/2024) Medications Medication Sig Dispensed Refills Start Date End Date Status CYANOCOBALAMIN (VITAMIN B-12) 500 MCG Sublingual Tablet Take 2 Tablets by mouth in the morning. 0 08/18/2018 Active Calcium Carbonate-Vit D-Min (CALTRATE 600+D PLUS MINERALS) 600-800 MG-UNIT CHEWIndications: Vitamin D deficiency One tablet twice daily 60 Tab 5 10/18/2018 Active Hampstead-3 1000 MG Oral Capsule Take by mouth. 0 Active Ferrous Sulfate 325 (65 Fe) MG Oral Tablet Delayed Release Take 1 Tablet by mouth in the morning. In the morning.. 0 08/13/2021 Active Aspirin 81 MG Oral Tablet ChewableIndicati ons:History of TIA (transient ischemic attack) Take 1 [...] Active amLODIPine Besylate 5 MG Oral Tablet (Norvasc)Indicat ions:Hypertensio n goal BP (blood pressure) < 130/80 Take 1 Tablet by mouth in the morning. 90 Tablet 3 03/04/2024 Active Magnesium 100 MG Oral Capsule Take 1 Capsule by mouth in the morning. 0 04/02/2024 Discontinued documented as of this encounter (statuses as of 04/02/2024) Active Problems Problem Noted Date Diagnosed Date Hyperlipidemia LDL goal <70 08/19/2023 H/O mitral valve repair 12/08/2019 Hx of tricuspid valve repair 12/08/2019 Paroxysmal A-fib 08/15/2019 Hypertension goal BP (blood pressure) < 130/80 documented as of this encounter (statuses as of 04/02/2024) Resolved Problems Problem Noted Date Diagnosed Date Resolved Date HTN, goal below 130/80 08/12/201808/16 documented as of this encounter (statuses as of 04/02/2024) Immunizations Name Administration Dates Next Due COVID-19 mRNA, LNP-s, No Pre serve, 2-Dose Series ([employer]) 11/04/2021,02/14/2021,01/24/2021 Covid-19, Mrna, Lnp-s, Pf, B ivalent, 30 Mcg, IM, 12 yrs and above ([employer]) 08/25/2022 Pneumococcal Conjugate Vacc, 13 Valent (Prevnar) [...] Date Smoking Tobacco: Never Smokeless Tobacco: Never Tobacco Cessation:Counseling Given: Not Answered Alcohol Use Standard Drinks/Week Comments No 0 [...] Sign Reading Time Taken Comments Blood Pressure 128/76 04/02/2024 9:22 AM EDT Pulse 58 04/02/2024 9:22 AM EDT Temperature - - Respiratory Rate - - Oxygen Saturation 98% 04/02/2024 9:22 AM EDT Inhaled Oxygen Concentration - - Weight 60.8 kg (134 lb) 04/02/2024 9:22 AM EDT Height - - Body Mass Index 23 03/04/2024 11:35 AM EDT documented in this encounter Progress Notes * Ekaterina Storey CRNP - 04/02/2024 9:30 AM EDT Cardiology Outpatient Visit 04/02/2024 Primary [place]: Dr. 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 Capsule endoscopy unremarkable Hypertension Dyslipidemia with statin and Zetia intolerance History of QT prolongation HPI Very pleasant but medically complex 73-year-old female presenting to the cardiology office today inroutine follow-up. Last evaluated by Dr. Garber approximately 5 months ago to reestablish care. Recently was evaluated in [place] earlier in 2022 where there was concern for possible TIA. Patient reported feeling of fatigue with elevated blood pressure in the evening. No focal weakness, visual changes, slurred speech, paresthesias, or dysphagia. Was started on statin therapy primary care however patient was unable to tolerate medication due to muscular discomfort and Crestor was discontinued.Started on Zetia. Aspirin was on hold due to history of anemia/upper GI bleed. Blood pressures wereelevated and patient was started on amlodipine. Today the patient presents feeling generally well. No acute concerns however she has been more fatigued recently. Denies any exertional chest pain. Noted some mild shortness of breath, followed up with the PCP regarding this on 03/04. Blood work was completed showing a hemoglobin of 10.8 and a low Tsat. Iron supplementation was increased with improvement in symptoms over the last month. She denies palpitations, dizziness, syncope or near syncope. No orthopnea, PND, or increased lower extremity edema. No fever, chills, cough, hematochezia, melena, or hemoptysis. Patient is compliant with all medications, and offers no side effects. Of note she will be leaving to travel to [facility]. Planning on returning at the end of June. Current Outpatient Medications Medication Sig Dispense Refill CYANOCOBALAMIN (VITAMIN B-12) 500 MCG Sublingual Tablet Take 2 Tablets by mouth in the morning. Calcium Carbonate-Vit D-Min (CALTRATE 600+D PLUS MINERALS) 600-800 MG-UNIT CHEW One tablet twice daily 60 Tab 5 Hampstead-3 1000 MG Oral Capsule Take by mouth. Ferrous Sulfate 325 (65 Fe) MG Oral Tablet Delayed Release Take 1 Tablet by mouth in the morning. In the morning.. Aspirin 81 MG Oral Tablet Chewable Take 1 Tablet by mouth in the morning. with food.. 100 Tablet 5 Metoprolol Succinate ER 25 MG Oral Tablet Extended Release 24 Hour (toPROL XL) Take 1 Tablet by mouth in the morning and 1 Tablet before bedtime. 180 Tablet 3 amLODIPine Besylate 5 MG Oral Tablet (Norvasc) Take 1 Tablet by mouth in the morning. 90 Tablet 3 Ramipril 10 MG Oral Capsule (Altace) Take 1 Capsule by mouth in the morning and 1 Capsule in the evening. 180 Capsule 3 No current facility-administered medications for this visit. Past Medical History: Diagnosis Date Hyperlipidemia LDL goal <70 Paroxysmal A-fib (HCC) Past Surgical History: Procedure Laterality Date COLONOSCOPY W/ BIOPSY (RECTUM) 2014 negative COLONOSCOPY, DIAGNOSTIC (RECTUM) 08/07/2021 normal, repeat 5 yrs / COLONOSCOPY FLEXIBLE PROXIMAL DIAGNOSTIC performed by Binh Calzada MD at END[facility]COPY [facility] EGD, FLEXIBLE, DIAGNOSTIC 08/07/2021 inflammatory cells on bx / ESOPHAGOGASTRODUODENOSCOPY (EGD), FLEXIBLE, TRANSORAL, DIAGNOSTIC performed by Binh Calzada MD at [facility] EGD, FLEXIBLE, DIAGNOSTIC 08/11/2021 erosive gastropathy, duodenal ulcer / INPT [facility] REMOVE CATARACT, INSERT LENS PROSTH REPAIR TRICUSPID VALVE 11/09/2017 [place] REPAIR TRICUSPID VALVE 11/09/2017 [facility] Social History Tobacco Use Smoking status: Never Smokeless tobacco: Never Substance Use Topics Alcohol use: No Drug use: No Review of patient's allergies indicates: Allergen Reactions Ezetimibe General malaise or feeling unwell Protonix [Pantoprazole] Hives GI upset Rosuvastatin Muscle aches/pains, fatigue Statins myalgia Review of Systems: See HPI for pertinent positives. All others negative, other than those noted in HPI. Physical Exam: BP 128/76 | Pulse 58 | Wt 60.8 kg (134 lb) | SpO2 98% | BMI 23.00 kg/m | BSA 1.66 m General: No acute distress. A+Ox3. HEENT: Normocephalic. Atraumatic. Conjunctiva and sclera clear. NECK: No carotid bruits. No JVD. Carotid upstrokes are brisk. Heart: RRR. S1 and S2 noted. +1/6 holosystolic murmur heard at the left ventricular apex and left sternal border. Lungs: Clear to auscultation. No wheezes, rhonchi, rales. Abdomen: Normal bowel sounds. Soft. Nontender. No masses or organomegaly. No abdominal bruits. Extremities: No edema. No clubbing or cyanosis. Pulses: radial=2/4, posterior tibial=2/4, dorsalis pedis = 2/4. NEURO: No focal deficits. PSYCH: Normal. Lab data/imaging study review: Echo 01/2024 The examination is adequate to evaluate the referral indication. The left ventricular cavity size is normal. The LV wall thickness is moderate to severely increased (concentric). The left ventricular wall motion is normal. The qualitative LV ejection fraction is 60-64% (normal). The left ventricular diastolic function is abnormal by 2-D findings. The left atrium is severely enlarged (>48 ml/m^2,). Moderate aortic valve sclerosis is present. There is evidence of prior mitral valve repair. There is evidence of prior mitral valve annuloplasty. Moderate to severe mitral insufficiency is present in a central jet There is evidence of previous tricuspid valve annuloplasty. Significant tricuspid regurgitation is absent. The proximal ascending thoracic aorta is mildly enlarged. (4.2 cm) [facility] 10/2023 Patient had a min HR of 38 bpm, max HR of 162 bpm, and avg HR of 67 bpm. Predominant underlying rhythm was Sinus Rhythm. 24 Supraventricular Tachycardia runs occurred, the run with the fastest interval lasting 14 beats with a max rate of 162 bpm, the longest lasting 19 beats with an avg rate of 90 bpm. Some episodes of Supraventricular Tachycardia may be possible Atrial Tachycardia with variable block. Isolated SVEs were rare (<1.0%), SVE Couplets were rare (<1.0%), and SVE Triplets were rare (<1.0%). Isolated VEs were rare (<1.0%), VE Couplets were rare (<1.0%), and no VE Triplets were present. One diary event was submitted for subjective symptom of "light headed, sitting" and correlated withsinus rhythm at 70 beats per minute. 2D echo report February 07, 2022: The left ventricular cavity size is normal. The LV wall thickness is moderately increased (concentric). The left ventricular wall motion is normal. The qualitative LV ejection fraction is 60-64% (normal). The left ventricular diastolic function is moderately abnormal (grade II). The left atrium is moderately enlarged. Mild aortic valve sclerosis is present. Moderate aortic valve regurgitation is present. There is evidence of prior mitral valve repair. There is evidence of prior mitral valve annuloplasty. The mitral valve leaflets thickness is moderately increased. Moderate mitral regurgitation is present. There is evidence of previous tricuspid valve repair. Significant tricuspid regurgitation is absent. The proximal ascending thoracic aorta is mildly enlarged. (4.2 cm) Compared to prior study of 04/13/2021, there is no significant change. 2D echo report summary April 13, 2021: The qualitative LV ejection fraction is 55-59% (normal). The LV wall thickness is mildly increased (concentric). The left ventricular wall motion is normal. The left atrium is normal sized (< 35 ml/m^2). The right atrial size is normal. Mild aortic valve sclerosis is present. Mild aortic valve regurgitation is present. There is evidence of prior mitral valve repair. Moderate mitral regurgitation is present. Mitral stenosis is absent. There is evidence of previous tricuspid valve repair. Mild tricuspid regurgitation is present. The proximal ascending thoracic aorta is mildly enlarged. (4.2 cm) Impression/Plan: This is a 73 year old male who is being evaluated in the cardiology office for ongoing care/risk management for the below diagnoses. 1. S/P mitral valve repair 2. 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 -Moderate residual mitral regurgitation per most recent echocardiogram 01/2022 Antibiotic prophylaxis recommended prior to all dental procedures. Continue ASA 81 mg daily 3. PAF (paroxysmal atrial fibrillation) ([facility]) -Possible history of paroxysmal atrial fibrillation -S/p left atrial appendage ligation -No evidence of paroxysmal atrial fibrillation per 7 day MCOT 08/2018 or Zio 10/2023 -H/o anemia/UGIB in the setting of PUD (07/2021). 4. HTN, goal below 140/90 -Controlled. Continue Norvasc 5 mg daily Continue Ramipril 5 mg twice daily 5. Dyslipidemia, goal LDL below 100 6. Statin intolerance -LDL 112, borderline controlled. -Crestor previously discontinued secondary to musculoskeletal discomfort. -Intolerance to Zetia 7. H/o Prolonged QT interval -Recommend avoid medications with potential to prolong the QT interval due to history of QT prolongation. 8. Shortness of breath 9. Fatigue -Patient with symptoms of mild shortness of breath and fatigue improving with the use of iron supplementation. Possibly related to JOSE M. Plans to repeat a CBC at her follow-up appointment with her PCPon 04/08. -I did discuss possibly proceeding with a nuclear stress test to rule out ischemic cause. Patient would like to hold off at this time due to symptomatic improvement. She will call the office should symptoms persist and we will proceed at that time. -She is euvolemic on exam, not requiring diuretic therapy. The patient agrees to the above plan and will call with additional questions or concerns. ER with all emergencies advised. Follow-up: Return in about 6 months (around 10/03/2024). | Check-out note: 6 mos with TK (parul mackenzie) I spent a total of 40 minutes on the date of service in preparation, delivery, and documentation ofthe care provided to Hanh Roman excluding any time spent in the performance of separately billed services. ROSA Coronel, Department of Cardiology This chart was completed in part utilizing [employer] Speech Voice Recognition Software. Grammatical errors, random word insertions, prounoun errors, and incomplete sentences are an occasional consequence of this system due to software limitations, ambient noise, and hardware issues. Any formal questions or concerns about the content, text, or information contained within the body of this dictation should be directly addressed to the provider for clarification. documented in this encounter Nursing Notes * Jackie Adkins CMA - 04/02/2024 9:21 AM EDT Examination Room: 7 Name: Hanh Roman Date of : (1950) Reason for Visit: 6m Interim Hospitalization(s): none Problems/Concerns:still tires easily. Chest Pain/SOB: denied chest pain, but does have some SOBOE. Saw PCP who increased iron. Which did help My [facility] is a way you can talk to your provider online through e-mail. Would you like to sign up? I can activate it for you? ALREADY ACTIVE Patient was instructed to not get up on the exam table until directed and assisted by their provider; patient is to remain seated in the chair/ wheelchair/ exam table for fall prevention and safety reasons. Patient is aware to have assistance to step down off exam table with personnel. Patient voiced full comprehension of instructions. documented in this encounter Plan of Treatment Upcoming Encounters Date Type Department Care Team (Late st Contact Info) Description 04/08/2024 11:00 AM EDT Office Visit General Internal Medicine [address] [place] [address] [place] [address] Zuleima Garcia MD [address] [facility] [place], [place] [address] 10/06/2024 1:00 PM EST Cardiac Studies Cardiac Studies, [facility] [address] [facility] [place] [address] 10/15/2024 1:30 PM EST Office Visit Cardiology, [facility] [address] [facility] [place] [address] Antonio Garber O, DO [address] [place] [address] Scheduled Orders Name Type Priority Associated Diagnoses Orde r Schedule ECHO, COMPLETE (2D), TRANS-THORACIC Echocardiology Routine S/P mitral valve repair SBE (subacute bacterial endocarditis) prophylaxis candidate PAF (paroxysmal atrial fibrillation) (HCC) HTN, goal below 140/90 Statin intolerance Dyslipidemia, goal LDL below 100 Prolonged QT interval Expected: 04/02/2024 (Approximate), Expires: 05/03/2026 Scheduled Procedures Name Priority Associated Diagnoses Date/Ti me COLONOSCOPY FLEXIBLE PROXIMA L DIAGNOSTIC Recall Iron deficiency anemia due to chronic blood loss Health Maintenance Due Date Last Done Comments DXA Scan 1950 Fecal Occult Blood Test 1996 Sigmoidoscopy 1996 Cologuard 08/28/2021 08/28/2018 Depression Screening 11/01/2023 11/01/2022 Mammogram 08/14/2024 08/14/2023, 07/27, 07/06/2022, Additional history exists GFR 03/04/2025 03/04/2024, /0 07/2024, 08/24/2023, Additional history exists Albumin/Creatinine Ratio [...] Not on filedocumented as of this encounter Visit Diagnoses Diagnosis S/P mitral valve repair- Primary Other postprocedural status SBE (subacute bacterial endocarditis) prophylaxis candidate Other specified prophylactic or treatment measure PAF (paroxysmal atrial fibrillation) (HCC) Atrial fibrillation HTN, goal below 140/90 Unspecified essential hypertension Statin intolerance Other drug allergy Dyslipidemia, goal LDL below 100 Other and unspecified hyperlipidemia Prolonged QT interval Nonspecific abnormal electrocardiogram (ECG) (EKG) documented in this encounter Care Teams Utility Technician Relationship Specialty Start Date End Date Zuleima Garcia MD [address] [facility] [place] [address] PCP - General Internal Medicine 08/12/18 documented as of this encounter
--- OUTSIDE RECORDS SUMMARY | 2024-07-16 06:29 | External Medical Summary ---
Author Name Unknown Address Unknown Organization K09:[facility] [address] [place] [address] Laboratory Report Ordering Provider Test Date Status JERRICA DC 03/04/2024 12:56:31 Final Observation Date Value Abnormality Reference (Units ) Status Magnesium 03/04/2024 12:56:31 2.1 1.5-2.6 (m g/dL) Final Performing Location [facility] [place] [address]
--- OUTSIDE RECORDS SUMMARY | 2024-07-16 06:29 | External Medical Summary ---
Author Name Unknown Address Unknown Organization [id number]:[facility] [place] [address] [facility] [address] Laboratory Report Ordering Provider Test Date Status JOANNE TIWARI 03/04/2024 12:56:31 Final Observation Date Value Abnormality Reference (Units ) Status Triglyceride 03/04/2024 12:56:31 121 <=174 ( mg/dL) Final Triglyceride Reference Range s (mg/dL):
<150 Acceptable
150-174 Borderline high
175-499 High
>=500 Very high Cholesterol 03/04/2024 12:56:31 179 <200 (mg /dL) Final Total Cholesterol Reference Ranges (mg/dL):
<200 Desirable
200-239 Borderline high
>=240 High HDL 03/04/2024 12:56:31 43 Below low normal >49 (mg/dL) Final HDL Cholesterol Reference Ra nges (mg/dL):
>=60 High (Desirable)
<50 Low (Undesirable) For Females
<40 Low (Undesirable) For Males NON-HDL CHOLESTEROL 03/04/2024 12:56:31 136 <=159 (mg/dL) Final Non-HDL Cholesterol Referenc e Range (mg/dL):
<100 Target level for high risk ASCVD patient
<130 Optimal for general population
130-159 Near optimal for general population
160-189 Borderline High
190-219 High
>=220 Very High LDL, (calculated) 03/04/2024 12:56:31 112 <= 129 (mg/dL) Final LDL Cholesterol Reference Ra nges (mg/dL):
<70 Target level for high risk ASCVD patient
<100 Optimal for general population
100-129 Near optimal for general population
130-159 Borderline high
160-189 High
>=190 Very high Performing Location [facility] [place] - [address] [facility] [address]
--- OUTSIDE RECORDS SUMMARY | 2024-07-16 06:29 | External Medical Summary ---
Author Name Unknown Address Unknown Organization K01:[facility] [place] [address] [place] [address] Laboratory Report Ordering Provider Test Date Status JERRICA DC 03/04/2024 12:56:31 Final Observation Date Value Abnormality Reference (Units ) Status Iron 03/04/2024 12:56:31 41 33-151 (ug/dL) Final Iron-binding capacity 03/04/2024 12:56:31 298 250-425 (ug/dL) Final Transferrin Sat % 03/04/2024 12:56:31 14 Below low normal 15-55 (%) Final Performing Location [facility] [place] [address] [place] [address]
--- OUTSIDE RECORDS SUMMARY | 2024-07-16 06:29 | External Medical Summary ---
Author Name Unknown Address Unknown Organization K09:[facility] - [address] [place] [address] Laboratory Report Ordering Provider Test Date Status JERRICA DC 03/04/2024 12:56:31 Final Observation Date Value Abnormality Reference (Units ) Status Color of Urine by Auto 03/04/2024 12:56:31 Yellow Light Yellow, Yellow, Dark Yellow Final Clarity, Urine 03/04/2024 12:56:31 Clear Clear Final Glucose [Mass/volume] in Urine by Automated test strip 03/04/2024 12:56:31 Negative Negative (mg/dL) Final Bilirubin.total [Presence] in Urine by Automated test strip 03/04/2024 12:56:31 Negative Negative Final Ketones [Mass/volume] in Urine by Automated test strip 03/04/2024 12:56:31 Trace Abnormal Negative (mg/dL) Final Specific gravity, Urine 03/04/2024 12:56:31 1.020 1.003-1.030 Final Hemoglobin [Presence] in Urine by Automated test strip 03/04/2024 12:56:31 Negative Negative Final pH, Urine 03/04/2024 12:56:31 5.0 5.0-7.5 (Units) Final Protein [Mass/volume] in Urine by Automated test strip 03/04/2024 12:56:31 Negative Negative (mg/dL) Final Urobilinogen [Mass/volume] in Urine by Automated test strip 03/04/2024 12:56:31 0.2 0.2, 1.0 (mg/dL) Final Nitrite [Presence] in Urine by Automated test strip 03/04/2024 12:56:31 Negative Negative Final Leukocyte esterase [Presence] in Urine by Automated test strip 03/04/2024 12:56:31 Negative Negative Final RBC, Urine 03/04/2024 12:56:31 0-2 0-2 (/HPF) Final WBC, Urine 03/04/2024 12:56:31 0-2 0-2 (/HPF) Final Bacteria [#/area] in Urine sediment by Microscopy high power field 03/04/2024 12:56:31 0-25 0-25 (/HPF) Final CULTURE, URINE - [facility] 03/04/2024 12:56:31 Final Culture not indicated by uri nalysis results\[id number]\ Performing Location [facility] [address] [place] [address]
--- OUTSIDE RECORDS SUMMARY | 2024-07-16 06:29 | External Medical Summary | Summary of Care ---
Author Name Unknown Organization [facility] Address [address] [place] [address] Phone [phone] Care Team Providers Care Sql Server Dba Name Role Phone Zuleima Garcia MD Primary Care Provider + Reason for Visit * Reason Onset Date Comments Test Results 03/06/2024 Encounter Details Date Type Department Care Team (Late st Contact Info) Description 03/06/2024 Telephone Cardiology, [facility] [address] [facility] [place] [address] Antonio Garber, DO [address] [facility] [place] [address] Test Results Allergies Active Allergy Reactions Criticality [...] by mouth in the morning. 0 Active Renick-3 1000 MG Oral Capsule Take by mouth. [...] mRNA, LNP-s, No Pre serve, 2-Dose Series ([employer]) 11/04/2021,02/14/2021,01/24/2021 Covid-19, Mrna, Lnp-s, Pf, B ivalent, 30 Mcg, IM, 12 yrs and above ([employer]) 08/25/2022 Pneumococcal Conjugate Vacc, 13 Valent (Prevnar) [...] encounter Miscellaneous Notes * Telephone Encounter - Jackie Adkins CMA - 03/06/2024 9:43 AM EDT My g sent. * Telephone Encounter - Jackie Adkins CMA - 03/06/2024 9:42 AM EDT ----- Message from Antonio Garber DO sent at 03/05/2024 4:54 PM EDT ----- Stable lipid panel. Documented intolerance to statins and zetia. No med changes. documented in this encounter Plan of Treatment Upcoming Encounters Date Type Department Care Team (Late st Contact Info) Description 04/02/2024 9:30 AM EDT Office Visit Cardiology, [facility] [address] [place] [address] Ekaterina Storey CRNP [address] [place] [address] 04/08/2024 11:00 AM EDT Office Visit General Internal Medicine [facility] [address] [facility] [place] [address] Zuleima Garcia MD [address] [facility] [place] [address] Scheduled Procedures Name Priority Associated Diagnoses Date/Ti me COLONOSCOPY FLEXIBLE PROXIMA L DIAGNOSTIC Recall Iron deficiency anemia due to chronic blood loss Health Maintenance Due Date Last Done Comments DXA Scan 1951 Fecal Occult Blood Test 1996 Sigmoidoscopy 1996 Cologuard 08/28/2021 08/28/2018 Depression Screening 11/01/2023 11/01/2022 Mammogram 08/14/2024 08/14/2023, 07/27, 07/06/2022, Additional history exists GFR 03/04/2025 03/04/2024, 01/0 07/2024, 08/24/2023, Additional history exists Albumin/Creatinine Ratio [...] filedocumented as of this encounter Care Teams Sql Server Dba Relationship Specialty Start Date End Date Zuleima Garcia MD [address] [facility] [place] [address] PCP - General Internal Medicine 08/12/18 documented as of this encounter
--- OUTSIDE RECORDS SUMMARY | 2024-07-16 06:29 | External Medical Summary ---
Author Name Unknown Address Unknown Organization [id number]:[facility] - [address] [place] [address] Laboratory Report Ordering Provider Test Date Status JERRICA DC 03/04/2024 12:56:31 Final Observation Date Value Abnormality Reference (Units ) Status Folic Acid 03/04/2024 12:56:31 >20.0 >4.5 (ng/ mL) Final Performing Location [facility] - [address] [place] [address]
--- OUTSIDE RECORDS SUMMARY | 2024-07-16 06:29 | External Medical Summary ---
Author Name Unknown Address Unknown Organization [id number]:[facility] [place] [address] Laboratory Report Ordering Provider Test Date Status JERRICA DC 03/04/2024 12:56:31 Final Observation Date Value Abnormality Reference (Units ) Status WBC, Total 03/04/2024 12:56:31 6.01 4.00-10.8 0 (K/uL) Final RBC 03/04/2024 12:56:31 3.51 3.85-5.15 (M/uL) Final Hemoglobin 03/04/2024 12:56:31 10.8 Below low normal 12 .0-15.3 (g/dL) Final HCT 03/04/2024 12:56:31 32.8 Below low normal 36. 0-45.2 (%) Final MCV 03/04/2024 12:56:31 93.4 81.5-97.5 (fL) Final MCH 03/04/2024 12:56:31 30.8 27.0-34.0 (pg) Final MCHC 03/04/2024 12:56:31 32.9 32.0-36.0 (g/dL) Final RDW 03/04/2024 12:56:31 13.0 11.5-15.5 (%) Final Platelets 03/04/2024 12:56:31 185 140-400 (K /uL) Final MPV 03/04/2024 12:56:31 9.2 6.6-11.1 ( fL) Final Performing Location [facility] [address]
--- OUTSIDE RECORDS SUMMARY | 2024-07-16 06:29 | External Medical Summary ---
Author Name Unknown Address Unknown Organization [id number]:[facility] - [address] [place] [address] Laboratory Report Ordering Provider Test Date Status KIAN DCCATHI 03/04/2024 12:56:31 Final Observation Date Value Abnormality Reference (Units ) Status TSH 03/04/2024 12:56:31 1.27 0.27-4.20 (uIU/mL) Final Performing Location [facility] - [address] [place] [address]
--- OUTSIDE RECORDS SUMMARY | 2024-07-16 06:30 | External Medical Summary | Summary of Care ---
Author Name Unknown Organization [facility] Address [address] [place] [address] Phone [phone] Care Team Providers Care School Office Manager Name Role Phone Zuleima Garcia MD Primary Care Provider + Reason for Visit * Reason Comments Medication Refill Encounter Details Date Type Department Care Team (Late st Contact Info) Description 02/08/2024 Refill General Internal Medicine [facility] [address] [place] [address] Zuleima Garcia MD [address] [place], [place] [id number] Hypertension goal BP (blood pressure) < 130/80 Allergies Active Allergy Reactions Criticality Noted Date Comments Ezetimibe 11/28/2023 General malaise or feeling unwell Pantoprazole Hives 02/07/2022 GI upset Rosuvastatin 11/28/2023 Muscle aches/pains, fatigue Statins 11/01/2022 myalgia documented as of this encounter (statuses as of 02/08/2024) Medications Medication Sig Dispensed Refills Start Date [...] by mouth in the morning. 0 Active [place]-3 1000 MG Oral Capsule Take by mouth. 0 Active Ferrous Sulfate 325 (65 Fe) MG Oral Tablet Delayed Release Take 1 Tablet by mouth in the morning. In the morning.. 0 08/13/2021 Active Aspirin 81 MG Oral Tablet ChewableIndicati ons:History of TIA (transient ischemic attack) Take 1 Tablet by mouth in the morning. with food.. 100 Tablet 5 08/19/2023 Active Rosuvastatin Calcium 5 MG Oral Tablet (Crestor)Indicat ions:Hyperlipide demarcus LDL goal <70 Take 1 Tablet by mouth in the morning. 30 Tablet 5 08/22/2023 Active Additional Information Patient not taking.Reported on 11/13/2023 Ezetimibe 10 MG Oral Tablet (Zetia) Take 1 Tablet by mouth in the morning. 34 Tablet 6 11/13/2023 Active Additional Information Patient not taking.Reported on 11/28/2023 Metoprolol Succinate ER 25 MG Oral Tablet [...] n goal BP (blood pressure) < 130/80 TAKE ONE TABLET BY MOUTH EVERY DAY 90 Tablet 3 02/08/2024 5 Active amLODIPine Besylate 5 MG Oral Tablet (Norvasc)Indicat ions:Hypertensio n goal BP (blood pressure) < 130/80 TAKE ONE TABLET BY MOUTH EVERY DAY 90 Tablet 3 12/15/2022 4 Discontinue d(Refill) documented as of this encounter (statuses as of 02/08/2024) Active Problems Problem Noted Date Diagnosed Date Hyperlipidemia LDL goal <70 08/19/2023 H/O mitral valve repair 12/08/2019 Hx of tricuspid valve repair 12/08/2019 Paroxysmal A-fib 08/15/2019 Hypertension goal BP (blood pressure) < 130/80 documented as of this encounter (statuses as of 02/08/2024) Resolved Problems Problem Noted Date Diagnosed Date Resolved Date HTN, goal below 130/80 08/12/201808/16 documented as of this encounter (statuses as of 02/08/2024) Immunizations Name Administration Dates Next Due COVID-19 mRNA, LNP-s, No Pre serve, 2-Dose Series ([employer]) 11/04/2021,02/14/2021,01/24/2021 Covid-19, Mrna, Lnp-s, Pf, B ivalent, 30 Mcg, IM, 12 yrs and above (Pfizer) 08/25/2022 Pneumococcal Conjugate Vacc, 13 Valent (Prevnar) 05/10/2018 Pneumococcal Polysaccharide PPV23 (Pneumovax) 05/10/2018 Season Influenza, Quad, PF, Adjuvanted, 65+ Yrs, IM ([employer]) 09/02/2022 Seasonal Influenza Virus Vac cine, Unspecified Formulation [...] encounter Miscellaneous Notes * Telephone Encounter - Niurka Horan [facility] - 02/08/2024 10:58 AM EDT Signed Prescriptions: Disp Refills amLODIPine Besylate 5 MG Oral Tablet (Norv*90 Tab*3 Sig: TAKE ONE TABLET BY MOUTH EVERY DAYAuthorizing Provider: ZULEIMA GARCIA User: Rashad HORAN documented in this encounter Plan of Treatment Upcoming Encounters Date Type Department Care Team (Late st Contact Info) Description 04/22/2024 9:20 AM EDT Office Visit General Internal Medicine [facility] [address] [place], [place] [address] Zuleima Garcia MD [address] [place], [place] [address] Scheduled Procedures Name Priority Associated Diagnoses Date/Ti [...] as of this encounter Visit Diagnoses Diagnosis Hypertension goal BP (blood pressure) < 130/80 Unspecified essential hypertension documented in this encounter Care Teams School Office Manager Relationship Specialty Start Date End Date Zuleima Garcia MD [address] [place] [address] PCP - General Internal Medicine 08/12/18 documented as of this encounter
--- OUTSIDE RECORDS SUMMARY | 2024-07-16 06:30 | External Medical Summary | Summary of Care ---
Author Name Unknown Organization [facility] Address [address] [place] [address] Phone [phone] Care Team Providers Care Sprue Cutting Press Operator Name Role Phone Zuleima Garcia MD Primary Care Provider + Reason for Visit * Reason Onset Date Comments Test Results 02/11/2024 Encounter Details Date Type Department Care Team (Late st Contact Info) Description 02/11/2024 Telephone Cardiology, [facility] [address] [facility] [place] [address] Antonio Garber, DO [address] [facility] [place] [address] Test Results Allergies Active Allergy Reactions Criticality Noted Date Comments Ezetimibe 11/28/2023 General malaise or feeling unwell Pantoprazole Hives 02/07/2022 GI upset Rosuvastatin 11/28/2023 Muscle aches/pains, fatigue Statins 11/01/2022 myalgia documented as of this encounter (statuses as of 02/11/2024) Medications Medication Sig Dispensed Refills Start Date End Date Status CYANOCOBALAMIN (VITAMIN B-12) 500 MCG Sublingual Tablet Take 2 Tablets by mouth in the morning. 0 08/18/2018 Active Calcium Carbonate-Vit D-Min (CALTRATE 600+D PLUS MINERALS) 600-800 MG-UNIT CHEWIndications:V itamin D deficiency One tablet twice daily 60 Tab 5 10/18/2018 Active Magnesium 100 MG Oral Capsule Take 1 Capsule by mouth in the morning. 0 Active Weldon-3 1000 MG Oral Capsule Take by mouth. 0 Active Ferrous Sulfate 325 (65 Fe) MG Oral Tablet Delayed Release Take 1 Tablet by mouth in the morning. In the morning.. 0 08/13/2021 Active Aspirin 81 MG Oral Tablet ChewableIndicatio ns:History of TIA (transient ischemic attack) Take 1 Tablet by mouth in the morning. with food.. 100 Tablet 5 08/19/2023 Active Rosuvastatin Calcium 5 MG Oral Tablet (Crestor)Indicati ons:Hyperlipidemi a LDL goal <70 Take 1 Tablet by [...] Active amLODIPine Besylate 5 MG Oral Tablet (Norvasc)Indicati ons:Hypertension goal BP (blood pressure) < 130/80 TAKE ONE TABLET BY MOUTH EVERY DAY 90 Tablet 3 02/08/2024 02/07/2025 Active documented as of this encounter (statuses as of 02/11/2024) Active Problems Problem Noted Date Diagnosed Date Hyperlipidemia LDL goal <70 08/19/2023 H/O mitral valve repair 12/08/2019 Hx of tricuspid valve repair 12/08/2019 Paroxysmal A-fib 08/15/2019 Hypertension goal BP (blood pressure) < 130/80 documented as of this encounter (statuses as of 02/11/2024) Resolved Problems Problem Noted Date Diagnosed Date Resolved Date HTN, goal below 130/80 08/12/201808/16 documented as of this encounter (statuses as of 02/11/2024) Immunizations Name Administration Dates Next Due COVID-19 mRNA, LNP-s, No Pre serve, 2-Dose Series ([employer]) 11/04/2021,02/14/2021,01/24/2021 Covid-19, Mrna, Lnp-s, Pf, B ivalent, [...] encounter Miscellaneous Notes * Telephone Encounter - Lynn Gautam OSA - 02/11/2024 10:59 AM EDT Pt scheduled April 28 at 10:[address] Garber. * Telephone Encounter - Jackie Adkins CMA - 02/11/2024 10:44 AM EDT My g sent regarding results. I added pt to recall list for Dr. Garber in April. Not sure if anyone else has an open schedules for April? I saw Mandeep had a few in Jun? * Telephone Encounter - Jackie Adkins CMA - 02/11/2024 10:41 AM EDT ----- Message from Antonio Garber DO sent at 02/03/2024 5:20 PM EDT ----- Echocardiogram demonstrates preserved/normal left ventricular systolic function. Evidence of prior mitral and tricuspid repair. Mitral regurgitation appears moderate to severe on current study (previously reported as moderate). There is no evidence of significant tricuspid regurgitation or pulmonary hypertension. Schedule cardiology follow-up in April. documented in this encounter Plan of Treatment Upcoming Encounters Date Type Department Care Team (Late st Contact Info) Description 04/22/2024 9:20 AM EDT Office Visit General Internal Medicine [facility] [address] [place] [address] Zuleima Garcia MD [address] [place] [address] 04/28/2024 10:30 AM EDT Office Visit Cardiology, [facility] [address] [place] [address] Antonio Garber DO [address] [place] [address] Scheduled Procedures Name Priority Associated Diagnoses Date/Ti [...] filedocumented as of this encounter Care Teams Sprue Cutting Press Operator Relationship Specialty Start Date End Date Zuleima Garcia MD [address] [place] [address] [place] [address] PCP - General Internal Medicine 08/12/18 documented as of this encounter
--- OUTSIDE RECORDS SUMMARY | 2024-07-16 06:30 | External Medical Summary ---
Author Name Unknown Address Unknown Organization K01:[facility] - [address] [facility] [address] [facility] [address] Laboratory Report Ordering Provider Test Date Status JERRICA DC 03/04/2024 12:56:31 Final Observation Date Value Abnormality Reference (Units ) Status Ferritin 03/04/2024 12:56:31 140 13-150 (ng /mL) Final Postmenopausal women have hi gher ferritin levels than pre-menopausal women. The above reference interval is based on pre-menopausal women. Performing Location [facility] - [address] [place] [address]
--- NOTE | 2024-07-16 07:49 | Electrocardiogram Report ---
Test Reason : Blood Pressure : */* mmHG Vent. Rate : 96 BPM Atrial Rate : * BPM P-R Int : * ms QRS Dur : 90 ms QT Int : 360 ms P-R-T Axes : * 56 -3 degrees QTcB Int : 454 ms Atrial fibrillation Diffuse Nonspecific ST and T wave abnormality Abnormal ECG When compared with ECG of 10-Aug-2021 16:07, Atrial fibrillation has replaced Sinus rhythm ST depression more pronounced HR has increased by 29 bpm Confirmed by Montana Kincaid ([id number]) on 07/16/2024 7:49:11 AM Referred By: Confirmed By: Montana Kincadi
[2024-07-16 08:13] LABS: Estimated Average Glucose 108 mg/dl; Hemoglobin A1C 5.4 % (4.5-5.6)
[2024-07-16] MEDS ORDERED: POTASSIUM CHLORIDE CRTAB 20 MEQ TABCR PO SCH (09:00)
[2024-07-16] MEDS: FUROSEMIDE 40 MG/4 ML VIAL IV SCH (09:20)
[2024-07-16] MEDS: METOPROLOL TARTRATE 25 MG TAB PO SCH (09:20)
[2024-07-16] MEDS: ASPIRIN 81 MG CHEW PO SCH (09:20)
[2024-07-16] MEDS: CYANOCOBALAMIN (B-12) 500 MCG TABLET PO SCH (09:21)
[2024-07-16] MEDS: FERROUS SULFATE 325 MG TAB PO SCH (09:21)
[2024-07-16] MEDS: POTASSIUM CHLORIDE CRTAB 20 MEQ TABCR PO SCH (09:21)
[2024-07-16] MEDS: ENALAPRIL MALEATE 10 MG TAB PO SCH (09:21)
[2024-07-16] MEDS: ACETAMINOPHEN 325 MG TAB PO PRN (09:38)
[2024-07-16] MEDS: DICLOFENAC SOD 1% GEL 100 GM TUBE EXT PRN (11:09)
[2024-07-16 11:33] LABS: ANTI-Xa, UFH(UnfractionatedHep 0.33 IU/ml (0.3-0.7)
--- NOTE | 2024-07-16 13:51 | Cardiology Consultation ---
Date of Consultation July 16, 2024 Assessment & Plan (1) Paroxysmal A-fib: (2) Acute heart failure with preserved ejection fraction: (3) Hx of mitral valve repair: (4) H/O tricuspid valve repair: (5) Chronic anemia: Plan 73-year-old female presents to the emergency department with new onset rapid atrial fibrillation and acute heart failure with preserved ejection fraction. Echocardiogram confirming moderate to severe mitral regurgitation and mild to moderate pulmonary hypertension. Clinically improved with IV diuresis and titration of beta-aiyana therapy. Converted to sinus rhythm last evening. Remains in sinus rhythm. Agree with titration of metoprolol to 25 mg 3 times daily. Transition to Toprol-XL 75 mg daily at discharge. Continue once daily IV furosemide. Transition to low-dose torsemide at discharge. Continue IV heparin with transition to oral Eliquis, 5 mg twice daily. Patient carries history of left atrial appendage ligation, however, post ligation JUAN JOSE was not performed per review of records. Agreeable to at least short-term anticoagulation at this time. Continue telemetry monitoring during hospitalization. Monitor fluid balance, daily weight, GFR, and electrolytes. All questions answered to satisfaction both the patient and her daughter. I spent a total of 65 minutes on the date of service in preparation, delivery, and documentation of the care provided to this patient, excluding any time spent in the performance of separately billed services. 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 Traveled back from [facility] approximately 3 days ago. Noting bilateral lower extremity edema after the flight. Wearing compression stockings with improvement. ECG on admission demonstrate atrial fibrillation with rapid ventricular response. She remained in atrial fibrillation until approximately 11:30 PM when she converted to sinus rhythm in the 80s. Outpatient Toprol-XL 25 mg once daily changed to metoprolol to tartrate 25 mg 3 times daily. Patient feeling well today. Palpitations have resolved. Denies chest pain or shortness of breath. Telemetry reveals sinus rhythm. Previously noted edema has resolved. CTA of the chest performed on admission demonstrating right-sided pleural effusion and pulmonary edema. Denies orthopnea or PND. Allergies Allergy/AdvReac Type Severity Reaction Status Date / Time pantoprazole Allergy Severe Gastrointestinal Verified 07/15/24 16:58 Upset prednisone AdvReac Severe Cramping Verified 07/15/24 16:58 of the Muscles Home Medications Medication Instructions Recorded Confirmed Type amlodipine 5 mg tablet 5 mg PO QPM 08/10/21 07/15/24 History calcium carbonate 600 mg-vitamin 1 cap PO BID 08/10/21 07/15/24 History D3 12.5 mcg (500 unit) capsule (Calcium 600 with Vitamin D3) cyanocobalamin (vitamin B-12) 500 500 mcg PO QAM 08/10/21 07/15/24 History mcg tablet (Vitamin B-12) magnesium 100 mg tablet 100 mg PO QAM 08/10/21 07/15/24 History metoprolol succinate 25 mg 25 mg PO AMHS 08/10/21 07/15/24 History tablet,extended release 24 hr ramipril 10 mg capsule 10 mg PO BID 08/10/21 07/15/24 History ferrous sulfate 325 mg (65 mg 325 mg PO QAM #30 tabs 08/13/21 07/15/24 Rx iron) tablet,delayed release aspirin 81 mg chewable tablet 81 mg PO QDB 07/15/24 07/15/24 History Patient History Medical History Paroxysmal A-fib History of anemia History of hyperlipidemia Social History Smoking Status: Never smoker Second Hand Exposure: No; Do You Dip or Chew Tobacco: No; Hx Alcohol Use: No Hx Substance Use: No Preferred Language: Frisian Communication Ability: Effective Testing Director Required: No Beliefs That Will Affect Care: None Current Living Situation: Family Current Living Situation Comment: Daughter and granddaughter Other Information That Helps Us Care for You: No Feels Safe at Home: Yes Safety Concerns: Feels Safe At This Time Assistive Devices: None Review of Systems Review of Systems: All systems reviewed & are unremarkable except as noted in Subjective Physical Exam Constitutional: well nourished; no acute distress Respiratory: no respiratory distress, no labored breathing and no retractions Auscultation: + diminished lung sounds (Right base); no rales and no rhonchi Cardiovascular: Rate/Rhythm: regular rate and regular rhythm Heart Sounds: normal S1, normal S2 and + murmur (1/6 holosystolic murmur heard best at the apex) Vessels: radial pulses present; no JVD Extremities: no edema Gastrointestinal (Abdomen): Inspection/Auscultation: normal bowel sounds; abdomen not distended Percussion/Palpation: abdomen soft; abdomen nontender, no guarding and abdomen not rigid Neurologic: CN's II-XI intact bilaterally and moves all extremities; no focal motor deficits Results & Data Vital Signs (Past 12 Hours) Vital Signs Temp Pulse Pulse Resp BP Pulse Ox O2 Del Method 07/16/24 11:15 36.9 C 88 16 108/71 97 Room Air 07/16/24 08:00 36.7 C 78 18 121/73 98 Nasal Cannula 07/16/24 07:00 85 07/16/24 03:33 36.7 C 07/16/24 03:32 86 20 126/80 97 Nasal Cannula O2 Flow Rate 07/16/24 11:15 07/16/24 08:00 3 07/16/24 07:00 07/16/24 03:33 07/16/24 03:32 3 Laboratory Results Cardiac Enzymes 07/15/24 07/15/24 Range/Units 15:21 19:03 Troponin I High Sens 9.0 10.3 (0-14) pg/ml B-Natriuretic Peptide 1847 H (0-100) pg/ml Coagulation 07/15/24 Range/Units 15:21 PT 11.1 (9.0-12.0) Seconds APTT 35 H (21-31) Seconds B-Natriuretic Peptide 1847 H (0-100) pg/ml CBC 07/15/24 07/16/24 Range/Units 15:21 01:33 WBC 8.83 8.00 (4.8-10.8) K/ul RBC 3.79 L 3.31 L (4.20-5.40) M/uL Hgb 11.6 L 10.1 L (12.0-16.0) g/dl Hct 34.7 L 29.5 L (37.0-47.0) % Plt Count 187 155 (130-400) K/uL Neut # (Auto) 6.39 (1.40-6.50) K/uL Lymph # (Auto) 1.71 (1.20-3.40) K/uL [place] # (Auto) 0.61 H (0.11-0.59) K/uL Eos # (Auto) 0.06 (0.00-0.50) K/uL Baso # (Auto) 0.02 (0.00-0.20) K/uL Comprehensive Metabolic Panel 07/15/24 07/16/24 Range/Units 15:21 01:33 Sodium 133 L 135 L (136-145) mmol/L Potassium 3.9 3.4 L (3.5-5.1) mmol/L Chloride 99 99 (98-107) mmol/L Carbon Dioxide 25 28 (21-32) mmol/L BUN 10 8 (6-23) mg/dl Creatinine 0.71 0.57 L (0.6-1.2) mg/dl Glucose 179 H 113 H (70-99(Fasting)) mg/dl Calcium 9.6 8.9 (8.6-10.3) mg/dl Intake and Output 07/15/24 07/16/24 07/16/24 22:59 06:59 14:59 Intake Total 500 / 1034.667 534.667 / 1034.667 Output Total 1300 / 2150 850 / 2150 Balance -800 / -1115.333 -315.333 / -1115.333 Intake: IV 500 / 734.667 234.667 / 734.667 Heparin Sodium/Dextrose 25,000 134.667 / 134.667 units In 500 ml @ 1,050 UNITS/ HR 21 mls/hr IV .[id number] [facility] Rx #:[id number] Magnesium Sulfate / D5w 1 gm In 100 / 100 100 ml @ 50 mls/hr IV ONE ONE Rx#:[id number] Sodium Chloride 0.9% 1,000 ml @ 500 / 500 999 mls/hr IV .[id number] [facility] Rx#: [id number] Oral 300 / 300 Output: Urine 500 / 500 Urine Amount (Catheter) 800 / 1650 850 / 1650 External 800 / 1650 850 / 1650 Other: Weight 62.3 kg 63.9 kg Weight Measurement Method Chair Scale Built in [facility] Diagnostic Findings 2D echocardiogram report 01/30/2024: The left ventricular cavity size is normal. The LV wall thickness is moderate to severely increased (concentric). The left ventricular wall motion is normal. The qualitative LV ejection fraction is 60-64% (normal). The left ventricular diastolic function is abnormal by 2-D findings. The left atrium is severely enlarged (>48 ml/m^2,). Moderate aortic valve sclerosis is present. There is evidence of prior mitral valve repair. There is evidence of prior mitral valve annuloplasty. Moderate to severe mitral insufficiency is present in a central jet There is evidence of previous tricuspid valve annuloplasty. Significant tricuspid regurgitation is absent. The proximal ascending thoracic aorta is mildly enlarged. (4.2 cm)
--- NOTE | 2024-07-16 15:45 | Hospitalist Progress Note ---
Date of Service July 16, 2024 Assessment & Plan (1) Atrial fibrillation with RVR: Plan: Patient is 73-year-old female with PMH myxomatous mitral valve disease, severe mitral regurgitation s/p mitral valve repair, tricuspid valve repair, biatrial Maze procedure and left atrial appendage ligation 11/07/2017, HTN, dyslipidemia, history of QT prolongation, possible history PAF s/p left atrial appendage ligation, history of GI bleed 2020 presented to ER with complaint of SOB and palpitations that started today. A-fib RVR H/O mitral valve repair, tricuspid valve repair H/O biatrial maze procedure and left atrial appendage ligation --CTA:No evidence of pulmonary embolus. Cardiomegaly and moderate to severe pulmonary edema. Small right pleural effusion. Ascending aortic aneurysm. --ECHO: EF 60 to 65%. Mild concentric LVH. Left atrium is severely dilated. Moderate to severe mitral regurgitation. An annuloplasty ring is noted in the mitral position. Trace tricuspid regurgitation. Estimated systolic pressure is estimated to be 46 mmHg --Normal TSH Spontaneously converted to sinus Continue metoprolol tartrate 25 mg 3 times a day IV Lopressor as needed Monitor and replete heart rates as needed Continue IV heparin for anticoagulation Appreciate cardiology input Acute heart failure with preserved ejection fraction Hypoxia--resolved --Valvular heart disease, A-fib RVR likely contributing as well --ECHO as above Continue IV Lasix Also on beta-aiyana, NGA inhibitor Monitor volume status,, I's and O's, daily weight Appreciate cardiology input Supplemental oxygen as needed Right ninth rib lytic lesion Incidental finding --CT: Incidental note is made of a lucency in the right lateral ninth rib which may represent a lytic lesion. Clinical correlation is recommended to exclude malignancy. Needs further workup as outpatient Abdominal aortic aneurysm Incidental finding on CT --CT showed The ascending aorta measures 42 mm. Monitor Non expectorant cough Likely secondary to volume overload COVID, influenza, RSV screen negative Procalcitonin normal Monitor (2) Volume overload: Plan: Management as above (3) Hx of mitral valve repair: (4) H/O tricuspid valve repair: Plan: Hypokalemia Likely secondary to diuretics Replete electrolytes as needed Monitor (5) Hyperglycemia: Plan: HbA1c 5.4 Monitor (6) Abnormal CT of the chest: Plan: Management as above (7) Hypertension: Plan: Continue amlodipine, ramipril Also started on metoprolol Monitor BP (8) Dyslipidemia: Plan: Intolerant to statin and Zetia (9) Chronic anemia: Plan: Chronic normocytic anemia Hemoglobin seems to be at baseline No acute bleeding issues Continue iron, vitamin B12 supplements Monitor CBC DVT Px On IV Heparin CODE STATUS Full code Admission and Anticipated Discharge Date Admission Date: July 15, 2024 Subjective Patient is seen and examined at bedside States feeling better today Reports transient cough this morning Palpitations, dyspnea resolved Has some generalized weakness Discussed with patient's daughter at bedside Denies any chest pain, nausea, vomiting, abdominal pain Currently in sinus No other complaints Review of Systems Review of Systems: All systems reviewed & are unremarkable except as noted in Subjective Physical Exam Physical Exam: Physical Exam: Vitals signs as noted above General Appearance:Thin, frail, no apparent distress Head: normocephalic, Atraumatic Eyes: normal inspection, EOMI Neck: supple, Trachea midline Respiratory/Chest: Decreased breath sounds, CTA, No accessory muscle use Cardiovascular: S1, S2, + murmur Abdomen/GI:Soft, Non tender, Bowel sounds present Extremities/Musculoskeletal:normal inspection, no edema Neurologic/Psych:AAOX3, grossly no focal neurological deficits Skin: normal color, warm Results & Data Results & Data Vital Signs (Past 12 Hours) Vital Signs Temp Pulse Pulse Resp BP Pulse Ox O2 Del Method 07/16/24 11:15 36.9 C 88 16 108/71 97 Room Air 07/16/24 09:21 Room Air 07/16/24 08:00 36.7 C 78 18 121/73 98 Nasal Cannula 07/16/24 07:00 85 07/16/24 03:33 36.7 C O2 Flow Rate 07/16/24 11:15 07/16/24 09:21 07/16/24 08:00 3 07/16/24 07:00 07/16/24 03:33 Laboratory Results Short CBC 07/15/24 07/16/24 Range/Units 15:21 01:33 WBC 8.83 8.00 (4.8-10.8) K/ul Hgb 11.6 L 10.1 L (12.0-16.0) g/dl Hct 34.7 L 29.5 L (37.0-47.0) % Plt Count 187 155 (130-400) K/uL BMP 07/15/24 07/16/24 15:21 01:33 Sodium 133 L 135 L Potassium 3.9 3.4 L Chloride 99 99 Carbon Dioxide 25 28 BUN 10 8 Creatinine 0.71 0.57 L Glucose 179 H 113 H Calcium 9.6 8.9
[2024-07-17 05:51] LABS: Hematocrit (blood only) 27.3 % (37.0-47.0); Hemoglobin 9.3 g/dl (12.0-16.0)
[2024-07-17 06:06] LABS: ANTI-Xa, UFH(UnfractionatedHep 0.31 IU/ml (0.3-0.7)
[2024-07-17 08:04] LABS: BUN Creatinine Ratio 12.5 (10-20); Calcium 9.3 mg/dl (8.6-10.3); Creatinine Clr Calc Pharmacy 75.1 ml/min; Est GFR (Non-African American) 93.2 ml/min; Potassium 4.2 mmol/L (3.5-5.1)
[2024-07-17] MEDS: POTASSIUM CHLORIDE CRTAB 20 MEQ TABCR PO SCH (09:46)
[2024-07-17] MEDS: METOPROLOL SUCC 50MG EXT REL TAB PO SCH (09:47)
[2024-07-17] MEDS: APIXABAN 5 MG TABLET PO SCH (10:54)
[2024-07-17 11:29] VITALS: BP 105/73; TEMP 99
--- NOTE | 2024-07-17 11:52 | XRay Report ---
SINGLE VIEW CHEST CLINICAL HISTORY: Congestive heart failure. FINDINGS: An AP, portable, upright chest radiograph is compared to chest x-ray and chest CT dated 06/26. The patient is status post midline sternotomy and cardiac valve surgeries. The heart is enlar ged noting atherosclerotic calcification of the thoracic ureter. There is pulmonary vascular congesti on. There are right larger than left pleural effusions with dependent atelectasis. No pneumothorax is seen. The skeletal structures are osteopenic. The bony thorax is grossly intact. Degenerative change is seen in the shoulders. IMPRESSION: 1. Cardiomegaly with pulmonary vascular congestion. 2. Right larger than left pleural effusions with dependent atelectasis. ACT 112: Negative or not required by law. Electronically signed by: Alo Fonseca M.D. 07/17/2024 11:50 AM
--- NOTE | 2024-07-17 11:58 | Cardiology Progress Note ---
Date of Service July 17, 2024 Assessment & Plan (1) Paroxysmal A-fib: (2) Acute heart failure with preserved ejection fraction: (3) Hx of mitral valve repair: (4) H/O tricuspid valve repair: (5) Chronic anemia: Plan 73-year-old female presents to the emergency department with new onset rapid atrial fibrillation and acute heart failure with preserved ejection fraction. Recent travel to [place]. Returning with noted lower extremity edema. Echocardiogram confirming moderate to severe mitral regurgitation and mild to moderate pulmonary hypertension. Clinically improved with IV diuresis and titration of beta-aiyana therapy. Converted to sinus rhythm 07/15/24. Transition to Toprol-XL 75 mg daily. Discontinue IV furosemide in favor of torsemide 20 mg on Saturday, Saturday, and Saturday only. Discontinue IV heparin. Start Eliquis 5 mg twice daily today. History of left atrial appendage ligation, however, post-ligation JUAN JOSE was not performed per review of records. Recommend oral anticoagulation with Eliquis. All questions answered to satisfaction both the patient and her family. Patient may be discharged home today. Cardiology follow-up in 2 weeks with repeat basic metabolic panel. I spent a total of 45 minutes on the date of service in preparation, delivery, and documentation of the care provided to this patient, excluding any time spent in the performance of separately billed services. Admission and Anticipated Discharge Date Admission Date: July 15, 2024 Subjective 73-year-old female seen examined at the bedside. Feeling better today. Remains in sinus rhythm. Denies chest pain or shortness of breath. Family present at bedside. Offers no additional concerns/complaints. Review of Systems Review of Systems: All systems reviewed & are unremarkable except as noted in Subjective Physical Exam Constitutional: well nourished; no acute distress Respiratory: no respiratory distress, no labored breathing and no retractions Auscultation: + diminished lung sounds (Right base); no rales and no rhonchi Cardiovascular: Rate/Rhythm: regular rate and regular rhythm Heart Sounds: normal S1, normal S2 and + murmur (1/6 holosystolic murmur heard best at the apex) Vessels: radial pulses present; no JVD Extremities: no edema Gastrointestinal (Abdomen): Inspection/Auscultation: normal bowel sounds; abdomen not distended Percussion/Palpation: abdomen soft; abdomen nontender, no guarding and abdomen not rigid Neurologic: CN's II-XI intact bilaterally and moves all extremities; no focal motor deficits Results & Data Vital Signs (Past 12 Hours) Vital Signs Temp Pulse Pulse Pulse Resp Resp Resp 07/17/24 11:29 37.2 C 67 18 07/17/24 10:16 79 70 18 14 07/17/24 08:28 36.7 C 72 16 07/17/24 04:06 37.3 C 76 16 BP Pulse Ox Pulse Ox Pulse Ox O2 Del Method 07/17/24 11:29 105/73 95 Room Air 07/17/24 10:16 100 99 07/17/24 08:28 112/72 96 Room Air 07/17/24 04:06 127/79 94 Room Air Laboratory Results CBC 07/17/24 Range/Units 05:33 Hgb 9.3 L (12.0-16.0) g/dl Hct 27.3 L (37.0-47.0) % Comprehensive Metabolic Panel 07/17/24 Range/Units 05:33 Sodium 133 L (136-145) mmol/L Potassium 4.2 D (3.5-5.1) mmol/L Chloride 97 L (98-107) mmol/L Carbon Dioxide 29 (21-32) mmol/L BUN 7 (6-23) mg/dl Creatinine 0.56 L (0.6-1.2) mg/dl Glucose 100 H (70-99(Fasting)) mg/dl Calcium 9.3 (8.6-10.3) mg/dl Intake and Output 07/16/24 07/17/24 07/17/24 22:59 06:59 14:59 Intake Total 905.95 / 1105.95 200 / 1105.95 234.15 / 234.15 Output Total 200 / 200 Balance 705.95 / 905.95 200 / 905.95 234.15 / 234.15 Intake: IV 355.95 / 355.95 234.15 / 234.15 Heparin Sodium/Dextrose 25,000 355.95 / 355.95 234.15 / 234.15 units In 500 ml @ 1,050 UNITS/ HR 21 mls/hr IV .[id number] [facility] Rx #:[id number] Oral 550 / 750 200 / 750 Output: Urine 200 / 200 Other: # Unmeasured Voids 2 2 Weight 61.1 kg Weight Measurement Method Standing Scale Patient Weight 07/18/24 06:59 Weight 61.1 kg
--- NOTE | 2024-07-17 12:33 | Hospitalist Progress Note ---
Date of Service July 17, 2024 Assessment & Plan (1) Atrial fibrillation with RVR: Plan: Patient is 73-year-old female with PMH myxomatous mitral valve disease, severe mitral regurgitation s/p mitral valve repair, tricuspid valve repair, biatrial Maze procedure and left atrial appendage ligation 11/07/2017, HTN, dyslipidemia, history of QT prolongation, possible history PAF s/p left atrial appendage ligation, history of GI bleed 2020 presented to ER with complaint of SOB and palpitations that started today. A-fib RVR H/O mitral valve repair, tricuspid valve repair H/O biatrial maze procedure and left atrial appendage ligation --CTA:No evidence of pulmonary embolus. Cardiomegaly and moderate to severe pulmonary edema. Small right pleural effusion. Ascending aortic aneurysm. --ECHO: EF 60 to 65%. Mild concentric LVH. Left atrium is severely dilated. Moderate to severe mitral regurgitation. An annuloplasty ring is noted in the mitral position. Trace tricuspid regurgitation. Estimated systolic pressure is estimated to be 46 mmHg --Normal TSH Spontaneously converted to sinus Continue Toprol-XL IV Lopressor as needed IV heparin transition to Eliquis Appreciate cardiology input Needs follow-up with cardiology on discharge Acute heart failure with preserved ejection fraction Hypoxia--resolved --Valvular heart disease, A-fib RVR likely contributing as well --ECHO as above Continue IV Lasix>> transition to torsemide 20 mg 3 times per week Also on beta-aiyana, NGA inhibitor Monitor volume status, I's and O's, daily weight Appreciate cardiology input 2 step: Did not qualify for supplemental oxygen Right ninth rib lytic lesion Incidental finding --CT: Incidental note is made of a lucency in the right lateral ninth rib which may represent a lytic lesion. Clinical correlation is recommended to exclude malignancy. Needs further workup as outpatient Patient/family understands and agrees with the plan Abdominal aortic aneurysm Incidental finding on CT --CT showed The ascending aorta measures 42 mm. Monitor Non expectorant cough Likely secondary to volume overload COVID, influenza, RSV screen negative Procalcitonin normal Monitor (2) Volume overload: Plan: Management as above (3) Hx of mitral valve repair: (4) H/O tricuspid valve repair: Plan: Hypokalemia Likely secondary to diuretics Replete electrolytes as needed Monitor (5) Hyperglycemia: Plan: HbA1c 5.4 Monitor (6) Abnormal CT of the chest: Plan: Management as above (7) Hypertension: Plan: Continue amlodipine, ramipril Also started on metoprolol Monitor BP (8) Dyslipidemia: Plan: Intolerant to statin and Zetia (9) Chronic anemia: Plan: Chronic normocytic anemia Hemoglobin seems to be at baseline No acute bleeding issues Continue iron, vitamin B12 supplements Monitor CBC DVT Px Eliquis CODE STATUS Full code Disposition Home Admission and Anticipated Discharge Date Admission Date: July 15, 2024 Subjective Patient is seen and examined at bedside Doing better No new complaints Remains in sinus Denies any chest pain, dyspnea, nausea, vomiting, abdominal pain Family at bedside Review of Systems Review of Systems: All systems reviewed & are unremarkable except as noted in Subjective Physical Exam Physical Exam: Physical Exam: Vitals signs as noted above General Appearance:Thin, frail, no apparent distress Head: normocephalic, Atraumatic Eyes: normal inspection, EOMI Neck: supple, Trachea midline Respiratory/Chest: Decreased breath sounds, CTA, No accessory muscle use Cardiovascular: S1, S2, + murmur Abdomen/GI:Soft, Non tender, Bowel sounds present Extremities/Musculoskeletal:normal inspection, no edema Neurologic/Psych:AAOX3, grossly no focal neurological deficits Skin: normal color, warm Results & Data Results & Data Vital Signs (Past 12 Hours) Vital Signs Temp Pulse Pulse Pulse Pulse Resp Resp 07/17/24 11:29 37.2 C 67 18 07/17/24 10:16 79 70 18 07/17/24 08:28 36.7 C 72 16 07/17/24 07:00 80 07/17/24 04:06 37.3 C 76 16 Resp BP Pulse Ox Pulse Ox Pulse Ox O2 Del Method 07/17/24 11:29 105/73 95 Room Air 07/17/24 10:16 14 100 99 07/17/24 08:28 112/72 96 Room Air 07/17/24 07:00 07/17/24 04:06 127/79 94 Room Air Laboratory Results Short CBC 07/17/24 Range/Units 05:33 Hgb 9.3 L (12.0-16.0) g/dl Hct 27.3 L (37.0-47.0) % BMP 07/17/24 05:33 Sodium 133 L Potassium 4.2 D Chloride 97 L Carbon Dioxide 29 BUN 7 Creatinine 0.56 L Glucose 100 H Calcium 9.3
--- NOTE | 2024-07-17 12:45 | Discharge Summary ---
Date of Service July 17, 2024 Admission HPI Per Admitting Provider Patient is 73-year-old female with PMH myxomatous mitral valve disease, severe mitral regurgitation s/p mitral valve repair, tricuspid valve repair, biatrial Maze procedure and left atrial appendage ligation 11/07/2017, HTN, dyslipidemia, history of QT prolongation, possible history PAF s/p left atrial appendage ligation, history of GI bleed 2020 presented to ER with complaint of SOB and palpitations that started today. Patient reports traveling back from [place] 3 days ago. She reports had some bilateral lower extremity after the flight and wore compression hose with improvement. Denies any noted shortness of breath or exertional shortness of breath recently. States that she has not been sleeping well and has been under a lot of stress with illness of her brother. States this morning was having trouble lying flat as well as feeling a little bit short of breath however upon awakening and doing ADLs did not notice any shortness of breath. Patient states had sudden onset of palpitations and shortness of breath around lunchtime that persisted so came to ER. Did not notice any chest pain, dizziness. Denies recent illness, fever/chills, diaphoresis, N/V/D/C, METZ, syncope, vision changes, neck pain, cough, sore throat, choking, otalgia, rhinorrhea, abdominal pain, paresthesias, weakness, rashes, urinary symptoms. Per outpatient cardiology note no evidence of PAF per [facility] on 11/2023. Admission Exam Per Admitting Provider General: no distress, WDWN Head: normocephalic, atraumatic Eyes: conjunctiva non-injected, anicteric ENT: normal inspection external ears, nose, mucous membranes moist Neck: supple, trachea midline, non-tender Lungs:+rales bases, 94% on 2L via NC, no respiratory distress CV: irregularly irregular, rate 104, trace pretibial edema Abd: normal BS, soft, non-tender Ext: no cyanosis, no calf tenderness Neuro: A&O x 3, no focal deficits noted, normal affect Skin: warm, dry Principal Diagnosis Atrial fibrillation with rapid ventricular response Acute heart failure with preserved ejection fraction Hypoxia--resolved Right ninth rib lytic lesion Abdominal aortic aneurysm Discharge Data Allergies Allergy/AdvReac Type Severity Reaction Status Date / Time pantoprazole Allergy Severe Gastrointestinal Verified 07/15/24 16:58 Upset prednisone AdvReac Severe Cramping Verified 07/15/24 16:58 of the Muscles Consultations 07/15/24 16:33 ED Decision to Admit Stat 07/15/24 18:43 Consult Cardiology Routine Procedures Performed Laboratory Results WBC 8.00 K/ul (4.8-10.8) 07/16/24 01:33 RBC 3.31 M/uL (4.20-5.40) L 07/16/24 01:33 Hgb 9.3 g/dl (12.0-16.0) L 07/17/24 05:33 POC Hgb 12.2 g/dl (12.0-16.0) 07/15/24 15:28 Hct 27.3 % (37.0-47.0) L 07/17/24 05:33 POC Hct 36 % (37-47) L 07/15/24 15:28 MCV 89.1 fL (80.0-100.0) 07/16/24 01:33 MCH 30.5 pg (25.0-34.0) 07/16/24 01:33 MCHC 34.2 g/dL (32.0-36.0) 07/16/24 01:33 RDW Std Deviation 43.2 fL (36.4-46.3) 07/16/24 01:33 RDW Coeff of Nalini 13.2 % (11.5-14.5) 07/16/24 01:33 Plt Count 155 K/uL (130-400) 07/16/24 01:33 MPV 10.1 fL (9.4-12.4) 07/16/24 01:33 Immature Gran % (Auto) 0.5 % 07/15/24 15:21 Neut % (Auto) 72.3 % 07/15/24 15:21 Lymph % (Auto) 19.4 % 07/15/24 15:21 Armstrong % (Auto) 6.9 % 07/15/24 15:21 Eos % (Auto) 0.7 % 07/15/24 15:21 Baso % (Auto) 0.2 % 07/15/24 15:21 Neut # (Auto) 6.39 K/uL (1.40-6.50) 07/15/24 15:21 Lymph # (Auto) 1.71 K/uL (1.20-3.40) 07/15/24 15:21 Armstrong # (Auto) 0.61 K/uL (0.11-0.59) H 07/15/24 15:21 Eos # (Auto) 0.06 K/uL (0.00-0.50) 07/15/24 15:21 Baso # (Auto) 0.02 K/uL (0.00-0.20) 07/15/24 15:21 Immature Gran # (Auto) 0.04 K/uL (0.01-0.20) 07/15/24 15:21 PT 11.1 Seconds (9.0-12.0) 07/15/24 15:21 INR 1.0 (0.9-1.1) 07/15/24 15:21 APTT 35 Seconds (21-31) H 07/15/24 15:21 PTT Ratio 1.3 07/15/24 15:21 Heparin Anti-Xa, Unfract 0.31 IU/ml (0.3-0.7) 07/17/24 05:33 POC Sodium 136 mmol/L (135-144) 07/15/24 15:28 Sodium 133 mmol/L (136-145) L 07/17/24 05:33 POC Potassium 3.8 mmol/L (3.3-5.0) 07/15/24 15:28 Potassium 4.2 mmol/L (3.5-5.1) D 07/17/24 05:33 POC Chloride 99 mmol/L (101-112) L 07/15/24 15:28 Chloride 97 mmol/L (98-107) L 07/17/24 05:33 Carbon Dioxide 29 mmol/L (21-32) 07/17/24 05:33 POC Total CO2 22 mmol/L (24-31) L 07/15/24 15:28 Anion Gap 7 (3-11) 07/17/24 05:33 POC Anion Gap 19.0 mmol/L (16-25) 07/15/24 15:28 POC BUN 9 mg/dl (7-18) 07/15/24 15:28 BUN 7 mg/dl (6-23) 07/17/24 05:33 Creatinine 0.56 mg/dl (0.6-1.2) L 07/17/24 05:33 POC Creatinine 0.7 mg/dl (0.6-1.3) 07/15/24 15:28 Est Cr Clr Drug Dosing 75.1 ml/min 07/17/24 05:33 Est GFR ( Amer) 108.0 ml/min 07/17/24 05:33 Est GFR (Non-Af Amer) 93.2 ml/min 07/17/24 05:33 BUN/Creatinine Ratio 12.5 (10-20) 07/17/24 05:33 Glucose 100 mg/dl (70-99(Fasting)) H 07/17/24 05:33 POC Glucose 141 mg/dl (70-99) H 07/16/24 07:29 POC Glucose (other) 180 mg/dl (70-99) H 07/15/24 15:28 Estimat Average Glucose 108 mg/dl 07/16/24 01:33 Hemoglobin A1c 5.4 % (4.5-5.6) 07/16/24 01:33 Calcium 9.3 mg/dl (8.6-10.3) 07/17/24 05:33 POC Ioniz Calcium Femi 1.14 mmol/l (1.12-1.32) 07/15/24 15:28 Magnesium 2.0 mg/dl (1.7-2.4) 07/16/24 01:33 Troponin I High Sens 10.3 pg/ml (0-14) 07/15/24 19:03 B-Natriuretic Peptide 1847 pg/ml (0-100) H 07/15/24 15:21 Lipase 15 U/L (11-82) 07/15/24 15:21 Procalcitonin < 0.02 ng/ml (0-0.5) 07/16/24 10:38 TSH 1.056 uIu/ml (0.300-4.500) 07/15/24 15:21 SARS-CoV-2 (PCR) NEGATIVE (Negative) 07/15/24 15:30 Influenza Type A (PCR) Negative (Neg) 07/15/24 15:30 Influenza Type B (PCR) Negative (Neg) 07/15/24 15:30 RSV (RT-PCR) Negative (Neg) 07/15/24 15:30 Impressions Chest CTA 07/15/24 15:17 CT angio chest PE protocol CLINICAL HISTORY: Chest Pain, eval for PE TECHNIQUE: Multidetector row helical CT of the chest was performed with angiographic protocol. Coronal and sagittal reformations were obtained. Coronal and sagittal MIPS were obtained from the axial data set and were submitted for review. Automated dose lowering techniques and/or adjustment according to patient size were utilized for this exam. CT DOSE: 414.9 mGy.cm Comparison: Comparison is made to chest radiograph 07/15/2024 FINDINGS: Lungs and pleura: Smooth interlobular septal thickening is seen compatible with interstitial pulmonary edema. There are groundglass opacities favoring the central lungs. There is a small right pleural effusion. Heart and pericardium: Mitral annular calcifications are seen. Vessels: No evidence of pulmonary embolism. The ascending aorta measures 42 mm. Mediastinum and lucien: Unremarkable. Chest wall and lower neck: Unremarkable. Abdomen: Unremarkable. Bones: Degenerative changes in the thoracic spine. There is a lucency in the right lateral ninth rib with erosion of the cortex and possibly a small soft tissue mass. IMPRESSION: 1. No evidence of pulmonary embolus. 2. Cardiomegaly and moderate to severe pulmonary edema. 3. Small right pleural effusion. 4. Ascending aortic aneurysm. 5. Incidental note is made of a lucency in the right lateral ninth rib which may represent a lytic lesion. Clinical correlation is recommended to exclude m alignancy. ACT 112: Positive. There are findings on this exam that require communication between the performing entity and the patient following Patient Test Result Information Act ([place] Act 112) guidelines. Electronically signed by: Juan Renae M.D. 07/15/2024 4:22 PM Chest X-Ray 07/17/24 09:27 SINGLE VIEW CHEST CLINICAL HISTORY: Congestive heart failure. FINDINGS: An AP, portable, upright chest radiograph is compared to chest x-ray and chest CT dated 07/15/2024. The patient is status post midline sternotomy and cardiac valve surgeries. The heart is enlarged noting atherosclerotic calcification of the thoracic ureter. There is pulmonary vascular congestion. There are right larger than left pleural effusions with dependent atelectasis. No pneumothorax is seen. The skeletal structures are osteopenic. The bony thorax is grossly intact. Degenerative change is seen in the shoulders. IMPRESSION: 1. Cardiomegaly with pulmonary vascular congestion. 2. Right larger than left pleural effusions with dependent atelectasis. ACT 112: Negative or not required by law. Electronically signed by: Alo Fonseca M.D. 07/17/2024 11:50 AM Ordered Studies 07/15/24 15:17 CT angio chest PE protocol Stat Hospital Course (1) Atrial fibrillation with RVR: Patient is 73-year-old female with PMH myxomatous mitral valve disease, severe mitral regurgitation s/p mitral valve repair, tricuspid valve repair, biatrial Maze procedure and left atrial appendage ligation 11/07/2017, HTN, dyslipidemia, history of QT prolongation, possible history PAF s/p left atrial appendage ligation, history of GI bleed 2020 presented to ER with complaint of SOB and palpitations that started today. A-fib RVR H/O mitral valve repair, tricuspid valve repair H/O biatrial maze procedure and left atrial appendage ligation --CTA:No evidence of pulmonary embolus. Cardiomegaly and moderate to severe pulmonary edema. Small right pleural effusion. Ascending aortic aneurysm. --ECHO: EF 60 to 65%. Mild concentric LVH. Left atrium is severely dilated. Moderate to severe mitral regurgitation. An annuloplasty ring is noted in the mitral position. Trace tricuspid regurgitation. Estimated systolic pressure is estimated to be 46 mmHg --Normal TSH Spontaneously converted to sinus Continue Toprol-XL IV Lopressor as needed IV heparin transition to Eliquis Appreciate cardiology input Needs follow-up with cardiology on discharge Acute heart failure with preserved ejection fraction Hypoxia--resolved --Valvular heart disease, A-fib RVR likely contributing as well --ECHO as above Continue IV Lasix>> transition to torsemide 20 mg 3 times per week Also on beta-aiyana, NGA inhibitor Monitor volume status, I's and O's, daily weight Appreciate cardiology input 2 step: Did not qualify for supplemental oxygen Right ninth rib lytic lesion Incidental finding --CT: Incidental note is made of a lucency in the right lateral ninth rib which may represent a lytic lesion. Clinical correlation is recommended to exclude malignancy. Needs further workup as outpatient Patient/family understands and agrees with the plan Abdominal aortic aneurysm Incidental finding on CT --CT showed The ascending aorta measures 42 mm. Monitor Non expectorant cough Likely secondary to volume overload COVID, influenza, RSV screen negative Procalcitonin normal Monitor (2) Volume overload: Management as above (3) Hx of mitral valve repair: (4) H/O tricuspid valve repair: Hypokalemia Likely secondary to diuretics Replete electrolytes as needed Monitor (5) Hyperglycemia: HbA1c 5.4 Monitor (6) Abnormal CT of the chest: Management as above (7) Hypertension: Continue amlodipine, ramipril Also started on metoprolol Monitor BP (8) Dyslipidemia: Intolerant to statin and Zetia (9) Chronic anemia: Chronic normocytic anemia Hemoglobin seems to be at baseline No acute bleeding issues Continue iron, vitamin B12 supplements Monitor CBC DVT Px Eliquis CODE STATUS Full code Disposition Home Total Time Total Time Spent Total Time Spent (In Minutes): 56 minutes Discharge Plan Discharge Items Patient Disposition: Home - Self-Care Reason For Visit: AFIB Discharge Diagnosis: Atrial fibrillation with rapid ventricular response Acute heart failure with preserved ejection fraction Hypoxia--resolved Right ninth rib lytic lesion Abdominal aortic aneurysm Activity: Per Instructions section Exercise/Sports: Wait until after follow-up appointment Non-emergency contact: Primary Care Provider and Cassandra Consultant Call non-emergency contact if: you have any medication questions, your symptoms worsen, your pain is concerning for you and you have a fever Follow-up/Referrals: Antonio Garber DO [Cassandra Consultant] - (The Cardiology office will contact you for follow up appointment.) Zuleima Garcia MD [Primary Care Provider] - (Date & Time 07/23/2024 11:20 AM Provider Zuleima Garcia MD Department General Internal Medicine [facility] ) Diet: Low Sodium (2gm) and Vegetarian (Lacto-Ovo) Addtl Attending Provider Instructions: Follow-up with your primary care physician Dr.Manisha Garcia on 07/23/2024 11:20 AM Follow-up with your bridal stylist sales consultant Dr. Garber in 2 weeks as advised. Office will call you with appointment -- Get blood test (basic metabolic panel) in 2 weeks and follow-up with your physician for monitoring your kidney function, potassium levels. -- Get further workup for right rib lytic lesion as advised Seek immediate medical attention if your symptoms reoccur or worsen Please take all medications as instructed on discharge list below. Please call if you have any questions or problems. You can reach a [facility] hospitalist on duty at [facility] 24 hours a day by calling [phone] Call your Primary Care doctor if any of the following symptoms or problems start or get worse: * Shortness of breath or difficulty breathing * Wake up at night short of breath * Chest pain * Cough * Swelling of your hands, feet, or legs * More fatigued or tired with your normal activity * Palpitations - sudden fast heart beats WEIGHT * Weigh yourself every morning after using the bathroom. * Use the same scale. * Wear the same amount of clothing. * Write your weight down on a chart. * Call your Primary Care doctor if you gain more than 2-3 pounds in 1-2 days. MEDICATIONS * Use this discharge instruction sheet for medication instructions. * Take your medications at the time your doctor ordered. * Do not skip a dose of your medicines. * If you miss a dose of medicine, take it as soon as possible, but DO NOT DOUBLE A DOSE. * Read your medicine information when you get home. * Know all of the side effects of your medicine. If in doubt, ask your pharmacist * Call your Primary Care doctor's office if you have any side effects. * Be sure all of your doctors know what medicine and herbs you take (including cold, flu, and herbal medicine). Take the following with you to your follow-up doctor appointments: * Weight Chart * Medication List * List of questions Do not drink excessive alcohol, beer or wine. . Pending Studies at Discharge: No Stand-Alone Forms: My [facility], Smoking Cessation Medications and DC Order Prescriptions: New metoprolol succinate 50 mg Tablet Extended Release 24 Hr 50 mg PO QAM Qty: 30 1RF Eliquis 5 mg Tablet 5 mg PO BID Qty: 60 2RF torsemide 20 mg tablet 20 mg PO UD Qty: 30 1RF Rx Instructions: Take on Saturday, Saturday, and Saturday only (3 times per week) potassium chloride 10 mEq tablet extended release 10 meq PO UD Qty: 30 0RF Rx Instructions: Take on Saturday, Saturday, and Saturday only (3 times per week) Continued cyanocobalamin (vitamin B-12) [Vitamin B-12] 500 mcg Tablet 500 mcg PO QAM magnesium 100 mg Tablet 100 mg PO QAM ramipril 10 mg capsule 10 mg PO BID calcium carbonate-vitamin D3 [Calcium 600 with Vitamin D3] 600 mg(1,500mg) - 500 unit Capsule 1 cap PO BID amlodipine 5 mg tablet 5 mg PO QPM ferrous sulfate 325 mg (65 mg iron) Tablet,Delayed Release (Dr/Ec) 325 mg PO QAM Qty: 30 1RF aspirin 81 mg tablet,chewable 81 mg PO QDB Changed metoprolol succinate 25 mg tablet extended release 24 hr 25 mg PO HS Qty: 0 0RF Discharge Orders: Discharge Order (Routine); Ordered 07/17/24 Ordered By: Pete Rodrigues Admission Data Admit Date/Time: 07/15/24 17:27 Attending Provider: Pete Rodrigues Admit Provider: Pedro Coyne Primary Care Provider: Zuleima Garcia Other Providers: Pedro Coyne; Antonio Garber
[2024-07-17 14:17] VITALS: PULSE 67; RESP 18; O2SAT 95
[2024-07-17] MEDS ORDERED: METOPROLOL SUCC 25MG EXT REL TAB PO SCH (21:00)
== END 2024-07-17 15:07 | disposition home or self-care (01) | DRG 291 ==
LOC: ED 15:03 → SUATTDRO 17:27 → 2E 17:27

== ENCOUNTER 2024-08-02 19:26 | Inpatient (IN) ==
--- OUTSIDE RECORDS SUMMARY | 2024-08-02 19:30 | External Medical Summary | Summary of Care ---
Author Name Unknown Organization [facility] Address [address] [place] [address] Phone [phone] Care Team Providers Care Animal Handler Name Role Phone Dayanna Solorzano MD Primary Care Provider [phone] Reason for Visit * Reason Onset Date Comments Hospital Follow-Up 07/21/2024 Encounter Details Date Type Department Care Team (Late st Contact Info) Description 07/21/2024 Telephone General Internal Medicine [facility] [address], [place] [id number] Dayanna Solorzano MD [address] [place] [address] Hospital Follow-Up Allergies Active Allergy Reactions Criticality Noted Date Comments Ezetimibe 11/28/2023 General malaise or feeling unwell Pantoprazole Hives 02/07/2022 GI upset Rosuvastatin 11/28/2023 Muscle aches/pains, fatigue Statins 11/01/2022 myalgia documented as of this encounter (statuses as of 07/24/2024) Medications Medication Sig Dispensed Refills Start Date End Date Status CYANOCOBALAMIN (VITAMIN B-12) 500 MCG Sublingual Tablet Take 2 Tablets by mouth in the morning. 08/18/2018 Active Calcium Carbonate-Vit D-Min (CALTRATE 600+D PLUS MINERALS) 600-800 MG-UNIT CHEWIndications:Padmini min D deficiency One tablet twice daily 60 Tab 5 10/18/2018 Active Conway-3 1000 MG Oral Capsule Take by mouth. Active Ferrous Sulfate 325 (65 Fe) MG Oral Tablet Delayed Release Take 1 Tablet by mouth in the morning. In the morning.. 08/13/2021 Active Aspirin 81 MG Oral Tablet [...] as of this encounter (statuses as of 07/24/2024) Active Problems Problem Noted Date Diagnosed Date Lytic lesion of bone on x-ray 07/23/2024 Senile osteoporosis 07/23/2024 Pulmonary edema cardiac cause 07/23/2024 Hyperlipidemia LDL goal <70 08/19/2023 H/O mitral valve repair 12/08/2019 Hx of tricuspid valve repair 12/08/2019 Paroxysmal A-fib 08/15/2019 Hypertension goal BP (blood pressure) < 130/80 documented as of this encounter (statuses as of 07/24/2024) Resolved Problems Problem Noted Date Diagnosed Date Resolved Date HTN, goal below 130/80 08/12/201808/16 documented as of this encounter (statuses as of 07/24/2024) Immunizations Name Administration Dates Next Due COVID-19 mRNA, LNP-s, No Pre serve, 2-Dose Series (Etherios) 11/04/2021,02/14/2021,01/24/2021 Covid-19, Mrna, Lnp-s, Pf, B ivalent, 30 Mcg, IM, 12 yrs and above (Etherios) 08/25/2022 Pneumococcal Conjugate Vacc, 13 Valent (Prevnar) 05/10/2018 Pneumococcal Polysaccharide PPV23 (Pneumovax) 05/10/2018 Season Influenza, Quad, PF, Adjuvanted, 65+ Yrs, IM (FLUAD) 08/21/2023,09/02/2022 Seasonal Influenza Virus Vac cine, Unspecified Formulation 08/15/2019,05/10/2018,05/08/2018 Seasonal Influenza, Quadriva lent Hd (Fluzone Hd) 10/06/2021 Seasonal Influenza, Quadrivalent, ID 09/03/2020 Seasonal Influenza, Quadriva lent, No Preserve, IM 05/10/2018,05/08/2018 Seasonal Influenza, Trivalen t, Adjuvanted, 65+ YRS, PF, (Fluad) 08/15/2019 TDAP, Age 7 and older, IM (Adacel) 05/10/2018 Zoster Vaccine Recombinant (Shingrix) 06/09/2018 ,05/10/2018 [...] money to get more. Never true 11/18/2021 Utilities Answer Date Recorded Do you have trouble paying y our heating, water, or electric bill? (Adult - for ages 18 years and over) Not on file 05/12/2024 Is your family able to pay t he heat, water, or electric bill? (Household - for ages 0-17 years) Not on file 05/12/2024 Does your family have access to good internet? (Household - for ages 0-17 years) Not on file 05/12/2024 Social Connections Answer Date Recorded How often do you feel lonely or isolated from those around you? (Adult - for ages 18 years and over) Not on file 05/12/2024 Sex and Gender Information Value Date Recorded Sex Assigned at Female 08/16/2020 9:31 AM EDT Gender Identity Female 08/16/2020 9:31 AM EDT Sexual Orientation Straight 08/16/2020 9: 31 AM EDT Job Start Date Occupation Industry Not on file Not on file Not on file documented as of this encounter Miscellaneous Notes * Telephone Encounter - Reed Wray OSA - 07/24/2024 12:22 PM EDT Called patient, daughter called back, she accepted the appt with Esequiel on 08/03/24 thank you. * Telephone Encounter - Reed Wray OSA - 07/24/2024 12:16 PM EDT LM for patient to call back. * Telephone Encounter - Gay Concepcion RN - 07/24/2024 11:05 AM EDT See alternate MyChart encounter from yesterday 07/23/24. Dr. Garber recommending: Schedule cardiology appointment for hospital follow-up next week. First available provider. -Saida with close in new on 08/03 at 11AM. Please call patient and assist in scheduling for this date. Will then submit to convert if patient agreeable. * Telephone Encounter - Reed Wray OSA - 07/22/2024 9:29 AM EDT Gay, The only opening I have at this time for Dr. Castellanos is 08/12/24 at 2 pm, it is one of those [employer] CLOS in REL slots. Would we be able to open it for this patient to be seen. From what I am understanding, the appt needs to be with Dr. Garber, please advise, thank you. * Telephone Encounter - Alberto Madden RN - 07/21/2024 3:37 PM EDT Patient discharged 07/17/24 from [facility]. Cardiology consulted for new onset a-fib. Dr Garber recommends a cardiology follow up in 2 weeks with repeat BMP. Please assist the patient with scheduling this follow up. Thank you documented in this encounter Plan of Treatment Upcoming Encounters Date Type Department Care Team (Late st Contact Info) Description 07/30/2024 8:20 AM EDT Office Visit General Internal Medicine [facility] [address] [facility] [address] [place] [address] Zuleima Garcia MD [address] [facility] [address] [facility] [place] [address] 08/27/2024 3:00 PM EDT Imaging Radiology, [address] [place] [address] 09/07/2024 10:00 AM EDT Office Visit Cardiology, [facility] [address] [facility] [place] [address] Antonio Garber DO [address] [facility] [place] [address] 10/01/2024 1:00 PM EST Office Visit General Internal Medicine [facility] [address] [place] [address] Zuleima Garcia MD [address] [facility] [address] [facility] [place] [address] 10/06/2024 1:00 PM EST Cardiac Studies Cardiac Studies, [facility] [address] [place] [address] Scheduled Procedures Name Priority Associated Diagnoses Date/Ti me COLONOSCOPY FLEXIBLE PROXIMA L DIAGNOSTIC Recall Iron deficiency anemia due to chronic blood loss Health Maintenance Due Date Last Done Comments Fecal Occult Blood Test 1996 Sigmoidoscopy 1996 DXA Scan 2001 Cologuard 08/28/2021 08/28/2018 Depression Screening 11/01/2023 11/01/2022 COVID-19 Vaccine ( season) 2024 10/13/2023, 08/25/2022, 04/13/2022, Additional history exists Influenza Vaccine (FLU shot) (#1) 2024 08/21/2023, 09/02/2022, 10/06/2021, Additional history exists Mammogram 08/14/2024 08/14/2023, 07/27, 07/06/2022, Additional history exists GFR 03/04/2025 03/04/2024, 07/2024, 08/24/2023, Additional history exists Albumin/Creatinine Ratio 11/03/2025 11/03/2022, 05/26 DTap/Tdap Vaccines (2 - Td or Tdap) 05/10/2028 05/10/2018 Lipid Panel 03/04/2029 03/04/2024, 07/28, 11/03/2022, Additional history exists Colonoscopy 08/07/2031 08/07/2021, 08/07/2021 Colorectal Cancer Screening 08/07/2031 Pneumococcal Vaccine: 65+ Years Completed 05/10/2018, 05/10/2018 Zoster Vaccines Completed 06/09/2018, 05/10/2018 VITAMIN D LEVEL ONCE IN A LIFETIME-USE SMARTSET# [id number] Completed 01/12/2023, 06/03/2021, 08/16/2018 HPV (Gardasil) Vaccine Aged Out No lo nger eligible based on patient's age to complete this topic Hepatitis B Vaccine Aged Out No longe r eligible based on patient's age to complete this topic MENINGOCOCCAL (MENACTRA/MENVEO) Aged Out No longer eligible based on patient's age to complete this topic documented as of this encounter Medical Devices Not on filedocumented as of this encounter Care Teams Animal Handler Relationship Specialty Start Date End Date Dayanna Solorzano MD [address] [place] [address] PCP - General Internal Medicine 06/05/24 documented as of this encounter
--- OUTSIDE RECORDS SUMMARY | 2024-08-02 19:30 | External Medical Summary | Summary of Care ---
Author Name Unknown Organization [facility] Address [address] [place] [address] Phone [phone] Care Team Providers Care Pastry Chef Name Role Phone Dayanna Solorzano MD Primary Care Provider [phone] Reason for Visit * Reason Onset Date Comments Hospital Follow-Up 07/21/2024 Encounter Details Date Type Department Care Team (Late st Contact Info) Description 07/21/2024 Telephone General Internal Medicine [facility] [address] [place], [place] [id number] Dayanna Solorzano MD [address] [place] [address] Hospital Follow-Up Allergies Active Allergy Reactions Criticality [...] twice daily 60 Tab 5 10/18/2018 Active [place]-3 1000 MG Oral Capsule Take by mouth. [...] mRNA, LNP-s, No Pre serve, 2-Dose Series ([employer]) 11/04/2021,02/14/2021,01/24/2021 Covid-19, Mrna, Lnp-s, Pf, B ivalent, 30 Mcg, IM, 12 yrs and above ([employer]) 08/25/2022 Pneumococcal Conjugate Vacc, 13 Valent (Prevnar) [...] encounter Miscellaneous Notes * Telephone Encounter - Gay Concepcion RN - 07/24/2024 1:48 PM EDT Conversion complete. Please schedule and remove hold. * Telephone Encounter - Reed Wray OSA [...] 2 pm, it is one of those LIVESTOCK AGENT CLOS in REL slots. Would we be able to open it for this patient to be seen. From what I am understanding, the appt needs to be with Dr. Garber, please advise, thank you. * Telephone Encounter - Alberto Madden RN - 07/21/2024 3:37 PM EDT Patient discharged 07/17/24 from [facility]. Cardiology consulted for new onset a-fib. Dr Garber recommends a cardiology follow up in 2 weeks with repeat BMP. Please assist the patient with scheduling this follow up. Thank you documented in this encounter Plan of Treatment Upcoming Encounters Date Type Department Care Team (Late st Contact Info) Description 07/30/2024 8:20 AM EDT Office Visit General Internal Medicine [facility] [address] [place] [address] Zuleima Garcia MD [address] [place] [address] 08/27/2024 3:00 PM EDT Imaging Radiology, [address] [place] [address] 09/07/2024 10:00 AM EDT Office Visit Cardiology, [facility] 132 [facility] [place] [address] Antonio Garber DO 132 [facility] [place] [address] 10/01/2024 1:00 PM EST Office Visit General Internal Medicine [facility] [address] [place] [address] [address] Zuleima Garcia MD [address] [place] [address] [address] 10/06/2024 1:00 PM EST Cardiac Studies Cardiac Studies, [facility] 132 [facility] [place] [address] Scheduled Procedures Name Priority Associated Diagnoses Date/Ti [...] D LEVEL ONCE IN A LIFETIME-USE SMARTSET# 79129 Completed 01/12/2023, 06/03/2021, 08/16/2018 HPV (Gardasil) Vaccine [...] filedocumented as of this encounter Care Teams Pastry Chef Relationship Specialty Start Date End Date Dayanna Solorzano MD 200 [facility] [place] [address] PCP - General Internal Medicine 06/05/24 documented as of this encounter
--- OUTSIDE RECORDS SUMMARY | 2024-08-02 19:30 | External Medical Summary | Summary of Care ---
Author Name Unknown Organization [facility] Address [address] [place] [address] Phone [phone] Care Team Providers Care Moulder Operator Name Role Phone Dayanna Solorzano MD Primary Care Provider Reason for Visit * Reason Onset Date Comments Hospital Follow-Up 07/17 [facility] hos pital discharge.Pt was prescribed potassium choloride, torsemide, and Eliquis. States that it has been causing, nausea, excessive gas, and loose stool. Hospital Follow-Up 07/23/2024 Encounter Details Date Type Department Care Team (Late st Contact Info) Description 07/23/2024 11:20 AM EDT Office Visit General Internal Medicine [facility] 200 [facility] [place] [address] Zuleima Garcia MD 200 [place] [address] Paroxysmal A-fib (HCC)*; Hx of tricuspid valve repair; H/O mitral valve repair; Hyperlipidemia LDL goal <70; Lytic lesion of bone on x-ray; Senile osteoporosis; Pulmonary edema cardiac cause (HCC); Paroxysmal atrial fibrillation (HCC); Hospital discharge follow-up Allergies Active Allergy Reactions Criticality Noted Date Comments Ezetimibe 11/28/2023 General malaise or feeling unwell Pantoprazole Hives 02/07/2022 GI upset Rosuvastatin 11/28/2023 Muscle aches/pains, fatigue Statins 11/01/2022 myalgia documented as of this encounter (statuses as of 07/23/2024) Medications Medication Sig Dispensed Refills Start Date End Date Status CYANOCOBALAMIN (VITAMIN B-12) 500 MCG Sublingual Tablet Take 2 Tablets by mouth in the morning. 08/18/2018 Active Calcium Carbonate-Vit D-Min (CALTRATE 600+D PLUS MINERALS) 600-800 MG-UNIT CHEWIndications:Vit britt D deficiency One tablet twice daily 60 Tab 5 10/18/2018 Active [place]-3 1000 MG Oral Capsule Take by mouth. Active Ferrous Sulfate 325 (65 Fe) MG Oral Tablet Delayed Release Take 1 Tablet by mouth in the morning. In the morning.. 08/13/2021 Active Aspirin 81 MG Oral Tablet ChewableIndications :History of TIA (transient ischemic attack) Take 1 [...] Active amLODIPine Besylate 5 MG Oral Tablet (Norvasc)Indication s:Hypertension goal BP (blood pressure) < 130/80 Take 1 Tablet by mouth in the morning. 90 Tablet 3 03/04/2024 Active Potassium Chloride ER 10 MEQ Oral Tablet Extended Release Take 1 Tablet by mouth once. TAKE 1 TABLET BY MOUTH ON SATURDAY, SATURDAY, AND SATURDAY ONLY (3 TIMES PER WEEK) DIRECTED 07/17/2024 Active Torsemide 20 MG Oral Tablet (Demadex) TAKE 1 TABLET BY MOUTH DIRECTED. TAKE ON SATURDAY, SATURDAY, AND SATURDAY ONLY (3 TIMES PER WEEK) 07/17/2024 Active Eliquis 5 MG Oral Tablet Take 1 Tablet by mouth in the morning and 1 Tablet before bedtime. 07/17/2024 Active Magnesium 100 MG Oral Tablet Take 1 Tablet by mouth in the morning. Active documented as of this encounter (statuses as of 07/23/2024) Active Problems Problem Noted Date Diagnosed Date Lytic lesion of bone on x-ray 07/23/2024 Senile osteoporosis 07/23/2024 Pulmonary edema cardiac cause 07/23/2024 Hyperlipidemia LDL goal <70 08/19/2023 H/O mitral valve repair 12/08/2019 Hx of tricuspid valve repair 12/08/2019 Paroxysmal A-fib 08/15/2019 Hypertension goal BP (blood pressure) < 130/80 documented as of this encounter (statuses as of 07/23/2024) Resolved Problems Problem Noted Date Diagnosed Date Resolved Date HTN, goal below 130/80 08/12/201808/16 documented as of this encounter (statuses as of 07/23/2024) Immunizations Name Administration Dates Next Due COVID-19 mRNA, LNP-s, No Pre serve, 2-Dose Series (Lost My Name) 11/04/2021,02/14/2021,01/24/2021 Covid-19, Mrna, Lnp-s, Pf, B ivalent, 30 Mcg, IM, 12 yrs and above (Lost My Name) 08/25/2022 Pneumococcal Conjugate Vacc, 13 Valent (Prevnar) [...] Sign Reading Time Taken Comments Blood Pressure 110/64 07/23/2024 11:30 AM EDT Pulse 57 07/23/2024 11:30 AM EDT Temperature 35.8 C (96.4 F) 07/23/2024 1 1:30 AM EDT Respiratory Rate - - Oxygen Saturation 99% 07/23/2024 11: 30 AM EDT Inhaled Oxygen Concentration - - Weight 61.1 kg (134 lb 11.2 oz) 024 11:30 AM EDT Height - - Body Mass Index 23.12 03/04/2024 11:35 AM EDT documented in this encounter Progress Notes * Zuleima Garcia MD - 07/23/2024 11:44 AM EDT HPI: Hanh Roman is a 73 year old female with a history of myxomatous mitral valve disease, severe mitral regurgitation, status post mitral valve repair, tricuspid valve repair, biatrial Maze procedure and left atrial appendage ligation on 11/07/2017, hypertension, hyperlipidemia, history of QT prolongation, possible history of PAF, status post left atrial appendage ligation, history of GI bleed in 2020 presented to ER with a complaint of shortness of breath and palpitation which started for a day. Patient did travel from [place] 3 days prior to going to Emergency Room. Patient had some bilateral lower extremity swelling after the flight and states she was using compression hose with improvement. who presents with: Chief Complaint Patient presents with Hospital Follow-Up 07/17 [facility] hospital discharge.Pt was prescribed potassium choloride, torsemide, and Eliquis. States that it has been causing, nausea, excessive gas, and loose stool. Pt is here for the hospital follow up. Chart reviewed from the hospital including admission note, Hand P, consult notes, labs, EKG, imaging and discharge note including discharge meds. Patient states she is feeling better since went back home. Pt was admitted to the hospital on 07/15/24 and was discharged on 07/17/24 . Admission Diagnosis : Atrial fibrillation with rapid ventricular response, acute heart failure withpreserved ejection fraction, hypoxia which resolved, right 9th rib lytic lesion, abdominal aortic aneurysm. As per the review of the chart and discussion with the patient she ended up in Emergency Room status post traveled from [place] 3 days prior and had worsening shortness of breath with some swelling in the leg. She denied any cough, fever, chills, neck pain, abdominal pain, paresthesia, weakness, vision change, syncope, headache, nausea, vomiting, diarrhea, diaphoresis. Her last visit with Cardiology as per the review and the workup including Zio in November of 2023 showed PAF. Pt has been followed up by telephonic case manager and specialists. Patient Active Problem List Diagnosis Hypertension goal BP (blood pressure) < 130/80 Paroxysmal A-fib (HCC) H/O mitral valve repair Hx of tricuspid valve repair Hyperlipidemia LDL goal <70 Current Outpatient Medications Medication Sig Dispense Refill CYANOCOBALAMIN (VITAMIN B-12) 500 MCG Sublingual Tablet Take 2 Tablets by mouth in the morning. Calcium Carbonate-Vit D-Min (CALTRATE 600+D PLUS MINERALS) 600-800 MG-UNIT CHEW One tablet twice daily 60 Tab 5 Ferrous Sulfate 325 (65 Fe) MG Oral [...] 1 Tablet before bedtime. 180 Tablet 3 Ramipril 10 MG Oral Capsule (Altace) Take 1 Capsule by mouth in the morning and 1 Capsule in the evening. 180 Capsule 3 amLODIPine Besylate 5 MG Oral Tablet (Norvasc) Take 1 Tablet by mouth in the morning. 90 Tablet 3 Potassium Chloride ER 10 MEQ Oral Tablet Extended Release Take 1 Tablet by mouth once. TAKE 1 TABLET BY MOUTH ON SATURDAY, SATURDAY, AND SATURDAY ONLY (3 TIMES PER WEEK) DIRECTED Torsemide 20 MG Oral Tablet (Demadex) TAKE 1 TABLET BY MOUTH DIRECTED. TAKE ON SATURDAY, SATURDAY, AND SATURDAY ONLY (3 TIMES PER WEEK) Eliquis 5 MG Oral Tablet Take 1 Tablet by mouth in the morning and 1 Tablet before bedtime. Magnesium 100 MG Oral Tablet Take 1 Tablet by mouth in the morning. Mcleod-3 1000 MG Oral Capsule Take by mouth. (Patient not taking: Reported on 07/23/2024) No current facility-administered medications for this visit. The patient's medication list was reviewed and updated as needed. Review of patient's allergies indicates: Allergen Reactions Ezetimibe General malaise or feeling unwell Protonix [Pantoprazole] Hives GI upset Rosuvastatin Muscle aches/pains, fatigue Statins myalgia Past Medical History: Diagnosis Date Hyperlipidemia LDL goal <70 Paroxysmal A-fib (HCC) Social History Socioeconomic History Marital status: Tobacco Use Smoking status: Never Smokeless tobacco: Never Substance and Sexual Activity Alcohol use: No Drug use: No Sexual activity: Not Currently Social Determinants of Health Food Insecurity: No Food Insecurity (11/18/2021) Hunger Vital Sign Worried About Running Out of Food in the Last Year: Never true Ran Out of Food in the Last Year: Never true Social Connections Family History Problem Relation Name Age of Onset Stroke Mother 52 Heart attack Father 63 Heart attack Sister All system negative except as per hpi. OBJECTIVE: BP 110/64 | Pulse 57 | Temp 35.8 C (96.4 F) (Tympanic) | Wt 61.1 kg (134 lb 11.2 oz) | SpO2 99%| BMI 23.12 kg/m | BSA 1.66 m PHYSICAL EXAM: HEENT: PERRLA, EOMI, anicteric sclera, b/l tympanic membrane is pearly white, no erythema, no pharyngeal erythema, no lymphadenopathy, neck supple CVS: RRR, systolic murmer pulmonary area, aortic area, rubs or gallops, s1 s 2normal. RESP: clear to auscultation, no wheezing or crackles ABD: soft, NT/ND EXT: no edema, cyanosis, peripheral pulses palpable bilaterally No large joint swelling, no redness, range of motion normal. Skin normal. Gait normal. Mood stable No focal weakness ASSESSMENT AND PLAN: Paroxysmal A-fib (HCC) (Primary) Rate controlled. On eliquis. Continue metoprolol. Hx of tricuspid valve repair H/O mitral valve repair Hyperlipidemia LDL goal <70 On statin. Lytic lesion of bone on x-ray - MONOCLONAL GAMMOPATHIES SCREENING PANEL; Future; Expected date: 07/23/2024 - URINE PROTEIN ELECTROPHORESIS REFLEX PROFILE, RANDOM URINE; Future; Expected date: 07/23/2024 - DEXA SCAN/BONE MINERAL AXIAL - BASIC METABOLIC PANEL; Future; Expected date: 07/27/2024 Senile osteoporosis - DEXA SCAN/BONE MINERAL AXIAL - BASIC METABOLIC PANEL; Future; Expected date: 07/27/2024 Pulmonary edema cardiac cause (HCC) Paroxysmal atrial fibrillation (HCC) - BASIC METABOLIC PANEL; Future; Expected date: 07/27/2024 Hospital discharge follow-up - DISCH MED RECON CUR MED LIS Follow-up: Return in about 2 months (around 09/22/2024). | Check-out note: Please schedule patient with cardiology for recenthospital f/u in few days to weeks with any provider please. Thanks. Zuleima Garcia MD documented in this encounter Nursing Notes * Godwin Leung, FURNITURE REFINISHER - 07/23/2024 11:30 AM EDT The patient has been properly identified by confirmation of name and date of . Chief Complaint Patient presents with Hospital Follow-Up 07/17 [facility] hospital discharge.Pt was prescribed potassium choloride, torsemide, and Eliquis. States that it has been causing, nausea, excessive gas, and loose stool. documented in this encounter Plan of Treatment Upcoming Encounters Date Type Department Care Team (Late st Contact Info) Description 07/30/2024 8:20 AM EDT Office Visit General Internal Medicine [facility] [address] [facility] [place] [address] Zuleima Garcia MD 200 [facility] [place] [address] 08/27/2024 3:00 PM EDT Imaging Radiology, [address] [place] [address] 10/06/2024 1:00 PM EST Cardiac Studies Cardiac Studies, [facility] 132 [facility] [place] [address] 10/15/2024 1:30 PM EST Office Visit Cardiology, [facility] 132 [facility] [place] [address] Antonio Garber, 132 [facility] [place] [address] Pending Results Name Type Priority Associated Diagnoses Date /Time MONOCLONAL GAMMOPATHIES SCREENING PANEL Lab Routine Lytic lesion of bone on x-ray 07/23/2024 12:40 PM EDT URINE PROTEIN ELECTROPHORESIS REFLEX PROFILE, RANDOM URINE Lab Routine Lytic lesion of bone on x-ray 07/23/2024 12:40 PM EDT Scheduled Orders Name Type Priority Associated Diagnoses Orde r Schedule MONOCLONAL GAMMOPATHIES SCREENING PANEL Lab Routine Lytic lesion of bone on x-ray Expected: 07/23/2024, Expires: 07/23/2025 URINE PROTEIN ELECTROPHORESIS REFLEX PROFILE, RANDOM URINE Lab Routine Lytic lesion of bone on x-ray Expected: 07/23/2024 (Approximate), Expires: 07/23/2025 DEXA SCAN/BONE MINERAL AXIAL Medical Imaging Routine Lytic lesion of bone on x-ray Senile osteoporosis Ordered: 07/23/2024 BASIC METABOLIC PANEL Lab Routine Lytic lesion of bone on x-ray Senile osteoporosis Paroxysmal atrial fibrillation (HCC) Expected: 07/27/2024 (Approximate), Expires: 07/23/2025 Scheduled Procedures Name Priority Associated Diagnoses Date/Ti me COLONOSCOPY FLEXIBLE PROXIMA L DIAGNOSTIC Recall Iron deficiency anemia due to chronic blood loss Health Maintenance Due Date Last Done Comments Fecal Occult Blood Test 1996 Sigmoidoscopy 1996 DXA Scan 2001 Cologuard 08/28/2021 08/28/2018 Depression Screening 11/01/2023 11/01/2022 COVID-19 Vaccine ( season) 2024 10/13/2023, 08/25/2022, 11/04/2021, Additional history exists Influenza Vaccine (FLU shot) [...] D LEVEL ONCE IN A LIFETIME-USE SMARTSET# 78095 Completed 01/12/2023, 06/03/2021, 08/16/2018 HPV (Gardasil) Vaccine [...] as of this encounter Visit Diagnoses Diagnosis Paroxysmal A-fib (HCC)- Primary Atrial fibrillation Hx of tricuspid valve repair Personal history of surgery to heart and great vessels, presenting hazards to health H/O mitral valve repair Personal history of surgery to heart and great vessels, presenting hazards to health Hyperlipidemia LDL goal <70 Other and unspecified hyperlipidemia Lytic lesion of bone on x-ray Disorder of bone and cartilage, unspecified Senile osteoporosis Pulmonary edema cardiac cause (HCC) Pulmonary congestion and hypostasis Paroxysmal atrial fibrillation (HCC) Atrial fibrillation Hospital discharge follow-up Other follow-up examination documented in this encounter Care Teams Moulder Operator Relationship Specialty Start Date End Date Dayanna Solorzano MD 200 [place] [address] PCP - General Internal Medicine 06/05/24 documented as of this encounter"
--- OUTSIDE RECORDS SUMMARY | 2024-08-02 19:30 | External Medical Summary ---
Author Name Unknown Address Unknown Organization [id number]:[facility] [place] [address] [place] [address] Laboratory Report Ordering Provider Test Date Status JOANNE TIWARI 07/29/2024 07:21:11 Final Observation Date Value Abnormality Reference (Units ) Status BUN 07/29/2024 07:21:11 8 6-20 (mg/dL) Final Creatinine 07/29/2024 07:21:11 0.7 0.5-1.0 (mg/dL) Final Glomerular filtration rate/1.73 sq M.predicted [Volume Rate/Area] in Serum, Plasma or Blood by Creatinine-based formula (CKD-EPI) 07/29/2024 07:21:11 >90 >=60 (mL/min) Final eGFR is calculated based on the CKD-EPI 2020 equation. Sodium 07/29/2024 07:21:11 132 Below low normal 135 -146 (mmol/L) Final Potassium 07/29/2024 07:21:11 5.2 Above high normal 3. 5-5.1 (mmol/L) Final Cl 07/29/2024 07:21:11 95 Below low normal 98- 107 (mmol/L) Final CO2 07/29/2024 07:21:11 28 22-32 (mmo l/L) Final Anion gap 07/29/2024 07:21:11 9 7-15 (mmol /L) Final Glucose 07/29/2024 07:21:11 87 70-120 (mg /dL) Final Calcium 07/29/2024 07:21:11 10.3 Above high normal 8. 4-10.2 (mg/dL) Final Performing Location [facility] [place] [address]
--- OUTSIDE RECORDS SUMMARY | 2024-08-02 19:30 | External Medical Summary ---
Author Name Unknown Address Unknown Organization [id number][place] [place] [address] [place] [address] Laboratory Report Ordering Provider Test Date Status JAJA CHAPMAN 07/23/2024 12:40:04 Final Observation Date Value Abnormality Reference (Units) Status PARAPROTEIN NORMAL/ABNORMAL 07/23/2024 12:40:04 Normal Normal Final Protein, Urine 07/23/2024 12:40:04 11 (mg/dL) Final Albumin / Total protein, Urine 07/23/2024 12:40:04 32.3 (%) Final Gamma globulin / protein (UPEP) 07/23/2024 12:40:04 67.7 (%) Final Protein Fractions [Interpretation] in Urine by Electrophoresis Narrative 07/23/2024 12:40:04 No abnormal peaks detected. Final Performing Location [facility] [place] [address] [place] [address]
--- OUTSIDE RECORDS SUMMARY | 2024-08-02 19:30 | External Medical Summary ---
Author Name Unknown Address Unknown Organization [id number][place] [place] [address] [place] [address] Laboratory Report Ordering Provider Test Date Status JAJA CHAPMAN 07/23/2024 12:40:04 Final Observation Date Value Abnormality Reference (Units) Status PARAPROTEIN NORMAL/ABNORMAL 07/23/2024 12:40:04 Abnormal Abnormal Normal Final Immunofixation for Serum or Plasma 07/23/2024 12:40:04 Abnormal, a monoclonal IgG kappa gammopathy is present. Final Performing Location [facility] [place] [address] [place] [address]
--- OUTSIDE RECORDS SUMMARY | 2024-08-02 19:30 | External Medical Summary | Summary of Care ---
Author Name Unknown Organization [facility] Address [address] [place] [address] Phone [phone] Care Team Providers Care Bailer Tenders Supervisor Name Role Phone Dayanna Solorzano MD Primary Care Provider [phone] Reason for Visit * Reason Onset Date Comments Hospital Follow-Up 07/21/2024 Encounter Details Date Type Department Care Team (Late st Contact Info) Description 07/21/2024 Telephone General Internal Medicine [facility] [address] [place], [place] [id number] Dayanna Solorzano MD 200 [place] [address] Hospital Follow-Up Allergies Active Allergy Reactions Criticality [...] twice daily 60 Tab 5 10/18/2018 Active [facility]-3 1000 MG Oral Capsule Take by mouth. [...] mRNA, LNP-s, No Pre serve, 2-Dose Series ([employer]) 11/04/2021,02/14/2021,01/24/2021 Covid-19, Mrna, Lnp-s, Pf, B ivalent, 30 Mcg, IM, 12 yrs and above ([employer]) 08/25/2022 Pneumococcal Conjugate Vacc, 13 Valent (Prevnar) [...] Encounter - Reed Wray OSA - 07/24/2024 2:16 PM EDT Patient is scheduled hold removed. RETURN CARDIOLOGY at 11:00 AM (60 min)Arrive by 10:45 AM Saturday August 03, 2024 Appointment Provider:Saida Iraheta PA-C in CARDIOLOGY [facility] * Telephone Encounter - Gay Concepcion RN [...] 2 pm, it is one of those INFORMATION SECURITY DIRECTOR CLOS in REL slots. Would we be able to open it for this patient to be seen. From what I am understanding, the appt needs to be with Dr. Garber, please advise, thank you. * Telephone Encounter - Alberto Madden RN - 07/21/2024 3:37 PM EDT Patient discharged 07/17/24 from [facility]. Cardiology consulted for new onset a-fib. Dr Garber recommends a cardiology follow up in 2 weeks with repeat BMP. Please assist the patient with scheduling this follow up. Thank you documented in this encounter Plan of Treatment Upcoming Encounters Date Type Department Care Team (Late st Contact Info) Description 07/30/2024 8:20 AM EDT Office Visit General Internal Medicine [facility] [address] [place] [address] Zuleima Garcia MD 200 [facility] [place] [address] 08/03/2024 11:00 AM EDT Office Visit Cardiology, [facility] [address] [address] Saida Iraheta PA-C [address] [place] [address] 08/27/2024 3:00 PM EDT Imaging Radiology, [address] [place] [address] 10/01/2024 1:00 PM EST Office Visit General Internal Medicine [facility] [address] [place] [address] Zuleima Garcia MD 200 [facility] [place] [facility] [place] [address] 10/06/2024 1:00 PM EST Cardiac Studies Cardiac Studies, [facility] 132 [facility] [place] [address] Scheduled Procedures Name Priority Associated Diagnoses Date/Ti [...] D LEVEL ONCE IN A LIFETIME-USE SMARTSET# [id number] Completed 01/12/2023, 06/03/2021, 08/16/2018 HPV (Gardasil) Vaccine [...] filedocumented as of this encounter Care Teams Bailer Tenders Supervisor Relationship Specialty Start Date End Date Dayanna Solorzano MD 200 [place] [address] PCP - General Internal Medicine 06/05/24 documented as of this encounter
--- OUTSIDE RECORDS SUMMARY | 2024-08-02 19:30 | External Medical Summary | Summary of Care ---
Author Name Unknown Organization [facility] Address [address] [place] [address] Phone [phone] Care Team Providers Care Java Web Developer Name Role Phone Dayanna Solorzano MD Primary Care Provider [phone] Reason for Visit * Reason Comments Outpatient Testing Encounter Details Date Type Department Care Team (Late st Contact Info) Description 07/29/2024 7:20 AM EDT Laboratory Laboratory, [facility] [address] [place] [address] [facility] [address] [place] [address] PAF (paroxysmal atrial fibrillation) ([facility]); HTN, goal below 140/90 Allergies Active Allergy Reactions Criticality Noted Date Comments Ezetimibe 11/28/2023 General malaise or feeling unwell Pantoprazole Hives 02/07/2022 GI upset Rosuvastatin 11/28/2023 Muscle aches/pains, fatigue Statins 11/01/2022 myalgia documented as of this encounter (statuses as of 07/29/2024) Medications Medication Sig Dispensed Refills Start Date End Date Status CYANOCOBALAMIN (VITAMIN B-12) 500 MCG Sublingual Tablet Take 2 Tablets by mouth in the morning. 08/18/2018 Active Calcium Carbonate-Vit D-Min (CALTRATE 600+D PLUS MINERALS) 600-800 MG-UNIT CHEWIndications:Vit britt D deficiency One tablet twice daily 60 Tab 5 10/18/2018 Active [place]-3 1000 MG Oral Capsule Take by mouth. [...] as of this encounter (statuses as of 07/29/2024) Active Problems Problem Noted Date Diagnosed Date Lytic lesion of bone on x-ray 07/23/2024 Senile osteoporosis 07/23/2024 Pulmonary edema cardiac cause 07/23/2024 Hyperlipidemia LDL goal <70 08/19/2023 H/O mitral valve repair 12/08/2019 Hx of tricuspid valve repair 12/08/2019 Paroxysmal A-fib 08/15/2019 Hypertension goal BP (blood pressure) < 130/80 documented as of this encounter (statuses as of 07/29/2024) Resolved Problems Problem Noted Date Diagnosed Date Resolved Date HTN, goal below 130/80 08/12/201808/16 documented as of this encounter (statuses as of 07/29/2024) Immunizations Name Administration Dates Next Due COVID-19 mRNA, LNP-s, No Pre serve, 2-Dose Series ([employer]) 11/04/2021,02/14/2021,01/24/2021 Covid-19, Mrna, Lnp-s, Pf, B ivalent, [...] Care Team (Late st Contact Info) Description 08/03/2024 11:30 AM EDT Office Visit Cardiology, [facility] [address] [place] [address] Saida Iraheta PA-C [address] [place] [address] 08/27/2024 3:00 PM EDT Imaging Radiology, [address] [place] [address] 10/01/2024 1:00 PM EST Office Visit General Internal Medicine [facility] [address] [place] [address] Zuleima Garcia MD [address] [place] [address] 10/06/2024 1:00 PM EST Cardiac Studies Cardiac Studies, [facility] [address] [place] [address] Pending Results Name Type Priority Associated Diagnoses Date /Time BASIC METABOLIC PANEL Lab Routine PAF (paroxysmal atrial fibrillation) (HCC) HTN, goal below 140/90 07/29/2024 7:21 AM EDT Scheduled Procedures Name Priority Associated Diagnoses Date/Ti me COLONOSCOPY FLEXIBLE PROXIMA L DIAGNOSTIC Recall Iron deficiency anemia due to chronic blood loss Health Maintenance Due Date Last Done Comments Fecal Occult Blood Test 1996 Sigmoidoscopy 1996 DXA Scan 2001 Cologuard 08/28/2021 08/28/2018 Depression Screening 11/01/2023 11/01/2022 *BISPHONATE OR OTHER ACCEPTABLE MEDICATION NEEDED FOR OSTEOPOROSIS (REFER TO SMARTSET #1146) 07/25/2024 COVID-19 Vaccine ( season) 2024 10/13/2023, 08/25/2022, [...] D LEVEL ONCE IN A LIFETIME-USE SMARTSET# [id number] Completed 01/12/2023, 06/03/2021, 08/16/2018 HPV (Gardasil) Vaccine [...] as of this encounter Visit Diagnoses Diagnosis PAF (paroxysmal atrial fibrillation) (HCC) Atrial fibrillation HTN, goal below 140/90 Unspecified essential hypertension documented in this encounter Care Teams Java Web Developer Relationship Specialty Start Date End Date Dayanna Solorzano MD 200 [facility] [place] [address] PCP - General Internal Medicine 06/05/24 documented as of this encounter
--- OUTSIDE RECORDS SUMMARY | 2024-08-02 19:30 | External Medical Summary | Summary of Care ---
Author Name Unknown Organization [facility] Address [address] [place] [address] Phone [phone] Care Team Providers Care Student Records Specialist Name Role Phone Dayanna Solorzano MD Primary Care Provider [phone] Reason for Visit * Reason Onset Date Comments Hospital Follow-Up 07/21/2024 Encounter Details Date Type Department Care Team (Late st Contact Info) Description 07/21/2024 Telephone General Internal Medicine [facility] [address] [place], [place] [id number] Dayanna Solorzano MD 200 [place] [address] Hospital Follow-Up Allergies Active Allergy Reactions Criticality [...] twice daily 60 Tab 5 10/18/2018 Active [place]-3 1000 MG Oral Capsule Take by mouth. [...] mRNA, LNP-s, No Pre serve, 2-Dose Series ([employer]) 11/04/2021,02/14/2021,01/24/2021 Covid-19, Mrna, Lnp-s, Pf, B ivalent, 30 Mcg, IM, 12 yrs and above ([employer]) 08/25/2022 Pneumococcal Conjugate Vacc, 13 Valent (Prevnar) [...] is scheduled hold removed. RETURN CARDIOLOGY at 11:30 AM (30 min)Arrive by 11:15 AM Saturday August 03, 2024 Appointment Provider:Saida Iraheta PA-C in CARDIOLOGY [facility] * Telephone Encounter - Gay Concepcion RN [...] 2 pm, it is one of those FACILITIES MAINTENANCE TECHNICIAN CLOS in REL slots. Would we be able to open it for this patient to be seen. From what I am understanding, the appt needs to be with Dr. Garber, please advise, thank you. * Telephone Encounter - Alberto Madden RN - 07/21/2024 3:37 PM EDT Patient discharged 07/17/24 from [facility]. Cardiology consulted for new onset a-fib. Dr Garber recommends a cardiology follow up in 2 weeks with repeat BMP. Please assist the patient with scheduling this follow up. Thank you documented in this encounter Plan of Treatment Upcoming Encounters Date Type Department Care Team (Late st Contact Info) Description 07/30/2024 8:20 AM EDT Office Visit General Internal Medicine [facility] [address] [place] [address] Zuleima Garcia MD 200 [facility] [place] [address] 08/03/2024 11:30 AM EDT Office Visit Cardiology, [facility] [address] [place] [address] [address] Saida Iraheta PA-C [address] [place] [place] [address] 08/27/2024 3:00 PM EDT Imaging Radiology, [address] [place] [address] 10/01/2024 1:00 PM EST Office Visit General Internal Medicine [facility] [address] [place] [address] Zuleima Garcia MD 200 [facility] [place] [address] 10/06/2024 1:00 PM EST Cardiac Studies Cardiac Studies, [facility] 132 [employer] [place] [address] Scheduled Procedures Name Priority Associated Diagnoses Date/Ti [...] D LEVEL ONCE IN A LIFETIME-USE SMARTSET# 61188 Completed 01/12/2023, 06/03/2021, 08/16/2018 HPV (Gardasil) Vaccine [...] filedocumented as of this encounter Care Teams Student Records Specialist Relationship Specialty Start Date End Date Dayanna Solorzano MD 200 [place] [address] PCP - General Internal Medicine 06/05/24 documented as of this encounter
--- OUTSIDE RECORDS SUMMARY | 2024-08-02 19:30 | External Medical Summary | Summary of Care ---
Author Name Unknown Organization [facility] Address [address] [place] [address] Phone [phone] Care Team Providers Care Barrel Cooper Name Role Phone Dayanna Solorzano MD Primary Care Provider [phone] Encounter Details Date Type Department Care Team (Late st Contact Info) Description 07/21/2024 Orders Only Cardiology, [facility] [address] [facility] [place] [address] Antonio Garber O, DO [address] [facility] [address] Allergies Active Allergy Reactions Criticality Noted Date Comments Ezetimibe 11/28/2023 General malaise or feeling unwell Pantoprazole Hives 02/07/2022 GI upset Rosuvastatin 11/28/2023 Muscle aches/pains, fatigue Statins 11/01/2022 myalgia documented as of this encounter (statuses as of 07/21/2024) Medications Medication Sig Dispensed Refills Start Date End Date Status CYANOCOBALAMIN (VITAMIN B-12) 500 MCG Sublingual Tablet Take 2 Tablets by mouth in the morning. 08/18/2018 Active Calcium Carbonate-Vit D-Min (CALTRATE 600+D PLUS MINERALS) 600-800 MG-UNIT CHEWIndications:Padmini min D deficiency One tablet twice daily 60 Tab 5 10/18/2018 Active [place]-3 1000 MG Oral Capsule Take by mouth. [...] as of this encounter (statuses as of 07/21/2024) Active Problems Problem Noted Date Diagnosed Date Hyperlipidemia LDL goal <70 08/19/2023 H/O mitral valve repair 12/08/2019 Hx of tricuspid valve repair 12/08/2019 Paroxysmal A-fib 08/15/2019 Hypertension goal BP (blood pressure) < 130/80 documented as of this encounter (statuses as of 07/21/2024) Resolved Problems Problem Noted Date Diagnosed Date Resolved Date HTN, goal below 130/80 08/12/201808/16 documented as of this encounter (statuses as of 07/21/2024) Immunizations Name Administration Dates Next Due COVID-19 mRNA, LNP-s, No Pre serve, 2-Dose Series ([employer]) 11/04/2021,02/14/2021,01/24/2021 Covid-19, Mrna, Lnp-s, Pf, B ivalent, 30 Mcg, IM, 12 yrs and above ([employer]) 08/25/2022 Pneumococcal Conjugate Vacc, 13 Valent (Prevnar) 05/10/2018 Pneumococcal Polysaccharide PPV23 (Pneumovax) 05/10/2018 Season Influenza, Quad, PF, Adjuvanted, 65+ Yrs, IM (FLUAD) 08/21/2023,09/02/2022 Seasonal Influenza Virus Vac cine, Unspecified Formulation 08/15/2019,05/10/2018,05/08/2018 Seasonal Influenza, Quadriva lent Hd (Fluzone Hd) 10/06/2021 Seasonal Influenza, Quadrivalent, ID 09/03/2020 Seasonal Influenza, Quadriva lent, No Preserve, IM 05/10/2018,05/08/2018 Seasonal Influenza, Trivalen t, Adjuvanted, 65+ yrs 08/15/2019 TDAP, Age 7 and older, IM [...] AM EDT Office Visit General Internal Medicine [facility] [address] [place] [address] Zuleima Garcia MD 200 [facility] [place] [address] 07/30/2024 8:20 AM EDT Office Visit General Internal Medicine [facility] [address] [place] [address] Zuleima Garcia MD 200 [facility] [place] [address] 10/06/2024 1:00 PM EST Cardiac Studies Cardiac Studies, [facility] [address] [facility] [place] [address] 10/15/2024 1:30 PM EST Office Visit Cardiology, [facility] [address] [facility] [place] [address] Antonio Garber, DO [address] [place] [address] Scheduled Procedures Name Priority Associated Diagnoses Date/Ti [...] 05/10/2018, 05/10/2018 Zoster Vaccines Completed 06/09/2018, 05/10/2018 HPV (Gardasil) Vaccine Aged Out No lo [...] Priority Date/Time Associated Diagnosis Comments XR CHEST 1 VIEW Routine 07/17/2024 documented in this encounter Results * XR CHEST 1 VIEW (07/17/2024) Anatomical Region Laterality Modality Chest Other 07/17/2024 Antonio Garber DO RADIOLOGY (RAD GENE RAL) documented in this encounter Care Teams Barrel Cooper Relationship Specialty Start Date End Date Dayanna Solorzano MD 200 [facility] [place] [address] PCP - General Internal Medicine 06/05/24 documented as of this encounter
--- OUTSIDE RECORDS SUMMARY | 2024-08-02 19:30 | External Medical Summary | Summary of Care ---
Author Name Unknown Organization [facility] Address [address] [place] [address] Phone [phone] Care Team Providers Care Kitchen Cleaner Name Role Phone Dayanna Solorzano MD Primary Care Provider [phone] Reason for Visit * Reason Onset Date Comments Hospital Follow-Up 07/17 [facility] hos pital discharge.Pt was prescribed potassium choloride, torsemide, and Eliquis. States that it has been causing, nausea, excessive gas, and loose stool. Hospital Follow-Up 07/23/2024 Encounter Details Date Type Department Care Team (Late st Contact Info) Description 07/23/2024 11:20 AM EDT Office Visit General Internal Medicine [facility] 200 [facility] [place] [address] Zuleima Garcia MD 200 [place] [address] Paroxysmal A-fib (HCC)*; Hx of tricuspid valve [...] twice daily 60 Tab 5 10/18/2018 Active [place]-3 1000 MG Oral Capsule Take by mouth. [...] mRNA, LNP-s, No Pre serve, 2-Dose Series ([employer]) 11/04/2021,02/14/2021,01/24/2021 Covid-19, Mrna, Lnp-s, Pf, B ivalent, 30 Mcg, IM, 12 yrs and above ([employer]) 08/25/2022 Pneumococcal Conjugate Vacc, 13 Valent (Prevnar) [...] Complaint Patient presents with Hospital Follow-Up 07/17 [facility] hospital discharge.Pt was prescribed potassium choloride, torsemide, [...] Pt has been followed up by telephonic nurse case manager and specialists. Patient Active Problem [...] 1 Tablet by mouth in the morning. [place]-3 1000 MG Oral Capsule Take by mouth. [...] this encounter Nursing Notes * Godwin Leung, CABINET ASSEMBLER - 07/23/2024 11:30 AM EDT The patient has been properly identified by confirmation of name and date of . Chief Complaint Patient presents with Hospital Follow-Up 07/17 [facility] hospital discharge.Pt was prescribed potassium choloride, torsemide, and Eliquis. States that it has been causing, nausea, excessive gas, and loose stool. documented in this encounter Plan of Treatment Upcoming Encounters Date Type Department Care Team (Late st Contact Info) Description 07/30/2024 8:20 AM EDT Office Visit General Internal Medicine [facility] 200 [facility] [place] [address] Zuleima Garcia MD 200 [facility] [place] [address] 08/27/2024 3:00 PM EDT Imaging Radiology, [address] [place] [address] 10/06/2024 1:00 PM EST Cardiac Studies Cardiac Studies, [facility] 132 [facility] [place] [address] 10/15/2024 1:30 PM EST Office Visit Cardiology, [facility] 132 [facility] [address] Antonio Garber, 132 [facility] [place] [address] Scheduled Orders Name Type Priority Associated Diagnoses [...] D LEVEL ONCE IN A LIFETIME-USE SMARTSET# 53690 Completed 01/12/2023, 06/03/2021, 08/16/2018 HPV (Gardasil) Vaccine [...] examination documented in this encounter Care Teams Kitchen Cleaner Relationship Specialty Start Date End Date Dayanna Solorzano MD [address] [place] [address] [place] [address] PCP - General Internal Medicine 06/05/24 documented as of this encounter"
--- OUTSIDE RECORDS SUMMARY | 2024-08-02 19:30 | External Medical Summary | Summary of Care ---
Author Name Unknown Organization [facility] Address [address] [place] [address] Phone [phone] Care Team Providers Care Phys Ther Name Role Phone Dayanna Solorzano MD Primary Care Provider [phone] Reason for Visit * Reason Onset Date Comments Hospital Follow-Up 07/21/2024 Encounter Details Date Type Department Care Team (Late st Contact Info) Description 07/21/2024 Telephone General Internal Medicine [facility] [address] [place], [place] [phone] Dayanna Solorzano MD 200 [place] [address] Hospital Follow-Up Allergies Active Allergy Reactions Criticality [...] twice daily 60 Tab 5 10/18/2018 Active [place]-3 1000 MG Oral Capsule Take by mouth. [...] mRNA, LNP-s, No Pre serve, 2-Dose Series ([employer]) 11/04/2021,02/14/2021,01/24/2021 Covid-19, Mrna, Lnp-s, Pf, B ivalent, 30 Mcg, IM, 12 yrs and above ([employer]) 08/25/2022 Pneumococcal Conjugate Vacc, 13 Valent (Prevnar) [...] 2 pm, it is one of those BI DATA MODELER CLOS in REL slots. Would we be able to open it for this patient to be seen. From what I am understanding, the appt needs to be with Dr. Garber, please advise, thank you. * Telephone Encounter - Alberto Madden RN - 07/21/2024 3:37 PM EDT Patient discharged 07/17/24 from [facility]. Cardiology consulted for new onset a-fib. Dr Garber recommends a cardiology follow up in 2 weeks with repeat BMP. Please assist the patient with scheduling this follow up. Thank you documented in this encounter Plan of Treatment Upcoming Encounters Date Type Department Care Team (Late st Contact Info) Description 07/30/2024 8:20 AM EDT Office Visit General Internal Medicine [facility] 200 [facility] [place] [address] Zuleima Garcia MD 200 [facility] [place] [address] 08/27/2024 3:00 PM EDT Imaging Radiology, [address] [place] [address] 09/07/2024 10:00 AM EDT Office Visit Cardiology, [facility] [address] [facility] [place] [address] Antonio Garber DO [address] [facility] [address] 10/01/2024 1:00 PM EST Office Visit General Internal Medicine [facility] [address] [place] [address] Zuleima Garcia MD 200 [facility] [place] [address] 10/06/2024 1:00 PM EST Cardiac Studies Cardiac Studies, [facility] [address] [place] [address] Scheduled Procedures Name Priority Associated Diagnoses Date/Ti [...] D LEVEL ONCE IN A LIFETIME-USE SMARTSET# 29270 Completed 01/12/2023, 06/03/2021, 08/16/2018 HPV (Gardasil) Vaccine [...] filedocumented as of this encounter Care Teams Phys Ther Relationship Specialty Start Date End Date Dayanna Solorzano MD [address] [place] [address] PCP - General Internal Medicine 06/05/24 documented as of this encounter
--- OUTSIDE RECORDS SUMMARY | 2024-08-02 19:30 | External Medical Summary | Summary of Care ---
Author Name Unknown Organization [facility] Address [address] [place] [address] Phone [phone] Care Team Providers Care Business Law Instructor Name Role Phone Dayanna Solorzano MD Primary Care Provider Reason for Visit * Reason Onset Date Comments Test Results 07/31/2024 Encounter Details Date Type Department Care Team (Late st Contact Info) Description 07/31/2024 Telephone Cardiology, [facility] [address] [place] [place] [facility] [address] Antonio Garber, [address] [facility] [place] [address] Test Results Allergies Active Allergy Reactions Criticality Noted Date Comments Ezetimibe 11/28/2023 General malaise or feeling unwell Pantoprazole Hives 02/07/2022 GI upset Rosuvastatin 11/28/2023 Muscle aches/pains, fatigue Statins 11/01/2022 myalgia documented as of this encounter (statuses as of 07/31/2024) Medications Medication Sig Dispensed Refills Start Date End Date Status CYANOCOBALAMIN (VITAMIN B-12) 500 MCG Sublingual Tablet Take 2 Tablets by mouth in the morning. 08/18/2018 Active Calcium Carbonate-Vit D-Min (CALTRATE 600+D PLUS MINERALS) 600-800 MG-UNIT CHEWIndications:Vit britt D deficiency One tablet twice daily 60 Tab 5 10/18/2018 Active [place]-3 1000 MG Oral Capsule Take by mouth. [...] as of this encounter (statuses as of 07/31/2024) Active Problems Problem Noted Date Diagnosed Date Lytic lesion of bone on x-ray 07/23/2024 Senile osteoporosis 07/23/2024 Pulmonary edema cardiac cause 07/23/2024 Hyperlipidemia LDL goal <70 08/19/2023 H/O mitral valve repair 12/08/2019 Hx of tricuspid valve repair 12/08/2019 Paroxysmal A-fib 08/15/2019 Hypertension goal BP (blood pressure) < 130/80 documented as of this encounter (statuses as of 07/31/2024) Resolved Problems Problem Noted Date Diagnosed Date Resolved Date HTN, goal below 130/80 08/12/201808/16 documented as of this encounter (statuses as of 07/31/2024) Immunizations Name Administration Dates Next Due COVID-19 mRNA, LNP-s, No Pre serve, 2-Dose Series ([employer]) 11/04/2021,02/14/2021,01/24/2021 Covid-19, Mrna, Lnp-s, Pf, B ivalent, [...] encounter Miscellaneous Notes * Telephone Encounter - Efren Hutchins LPN - 07/31/2024 3:45 PM EDT Patient's daughter returned call and was informed of Dr. Garber's message. Latrice verbalized understanding. * Telephone Encounter - Gay Concepcion RN - 07/31/2024 3:34 PM EDT Attempted to call patient at number list x 2. No answer, voicemail left to call office. Frequencyhart message also sent with below results/recommendations given late in day Saturday. * Telephone Encounter - Gay Concepcion RN - 07/31/2024 3:24 PM EDT ----- Message from Antonio Garber DO sent at 07/31/2024 3:08 PM EDT ----- Labs today demonstrates mild hyponatremia, mildly elevated serum potassium level. Recommend patienthold torsemide. Please confirm potassium supplementation discontinued. Reduce intake of potassium rich foods. Hold ramipril over the weekend as well. Repeat basic metabolic panel on 08/03/2024. Encourage oral hydration over the weekend. documented in this encounter Plan of Treatment Upcoming Encounters Date Type Department Care Team (Late st Contact Info) Description 08/03/2024 11:30 AM EDT Office Visit Cardiology, [facility] [address] [place] [address] Saida Iraheta PA-C [address] [place] [address] 08/27/2024 3:00 PM EDT Imaging Radiology, [address] [place] [address] 10/01/2024 1:00 PM EST Office Visit General Internal Medicine [facility] 200 [facility] [place] [address] Zuleima Garcia MD 200 [facility] [place] [address] 10/06/2024 1:00 PM EST Cardiac Studies Cardiac Studies, [facility] 132 [facility] [place] [address] Scheduled Orders Name Type Priority Associated Diagnoses Orde r Schedule BASIC METABOLIC PANEL Lab Routine Hyponatremia Hyperkalemia Expected: 08/03/2024 (Approximate), Expires: 07/31/2025 Scheduled Procedures Name Priority Associated Diagnoses Date/Ti [...] 08/14/2023, 07/27, 07/06/2022, Additional history exists GFR 07/29/2025 07/29/2024, 02/23, 12/03/2023, Additional history exists Albumin/Creatinine Ratio 11/03/2025 11/03/2022, 05/26 DTap/Tdap Vaccines (2 - Td or Tdap) 05/10/2028 05/10/2018 Lipid Panel 03/04/2029 03/04/2024, 07/28, 11/03/2022, Additional history exists Colonoscopy 08/07/2031 08/07/2021, 08/07/2021 Colorectal Cancer Screening 08/07/2031 Pneumococcal Vaccine: 65+ Years Completed 05/10/2018, 05/10/2018 Zoster Vaccines Completed 06/09/2018, 05/10/2018 VITAMIN D LEVEL ONCE IN A LIFETIME-USE SMARTSET# [id number] Completed 01/12/2023, 06/03/2021, 08/16/2018 HPV (Gardasil) Vaccine [...] as of this encounter Visit Diagnoses Diagnosis Hyponatremia- Primary Hyposmolality and/or hyponatremia Hyperkalemia Hyperpotassemia documented in this encounter Care Teams Business Law Instructor Relationship Specialty Start Date End Date Dayanna Solorzano MD 200 [facility] [place], [place] [address] PCP - General Internal Medicine 06/05/24 documented as of this encounter
--- OUTSIDE RECORDS SUMMARY | 2024-08-02 19:30 | External Medical Summary ---
Author Name Unknown Address Unknown Organization K01:[facility] - [address] [facility] [address] Laboratory Report Ordering Provider Test Date Status JAJA CHAPMAN 07/23/2024 12:40:04 Final Observation Date Value Abnormality Reference (Units) Status PARAPROTEIN NORMAL/ABNORMAL 12:40:04 Abnormal Abnormal Normal Final Protein 12:40:04 8.1 6.0-8.3 (g/dL) Final Albumin/Protein.tota l [Pure mass fraction] in Serum or Plasma by Electrophoresis 12:40:04 3.39 3.30-4.40 (g/dL) Final Alpha 1 globulin/Protein.tot al [Pure mass fraction] in Serum or Plasma by Electrophoresis 12:40:04 0.32 Above high normal 0.10-0.30 (g/dL) Final Alpha 2 globulin/Protein.tot al [Pure mass fraction] in Serum or Plasma by Electrophoresis 12:40:04 0.76 0.60-1.00 (g/dL) Final Beta globulin/Protein.tot al [Pure mass fraction] in Serum or Plasma by Electrophoresis 12:40:04 3.21 Above high normal 0.80-1.30 (g/dL) Final Gamma globulin/Protein.tot al [Pure mass fraction] in Serum or Plasma by Electrophoresis 12:40:04 0.43 Below low normal 0.70-1.70 (g/dL) Final Protein Fractions [Interpretation] in Serum or Plasma by Electrophoresis Narrative 12:40:04 Abnormal. A paraprotein is present. Unable to reliably identify or accurately quantify the paraprotein due to its comigration in the beta region. Please order serum free light chains, beta-2 microglobulin, and the quantitative immunoglobulins for disease Final Protein Fractions [Interpretation] in Serum or Plasma by Electrophoresis Narrative 08/29/202 4 12:40:04 monitoring. Appropriate studies including quantitative immunoglobulins, serum free light chains, and serum immunofixation have been ordered in follow up. See serum immunofixation results. Urine immunofixation recommended in follow up if clinically Final Protein Fractions [Interpretation] in Serum or Plasma by Electrophoresis Narrative 4 12:40:04 indicated. Decreased gamma fraction. Final Performing Location [facility] - [address] [facility] [address]
--- OUTSIDE RECORDS SUMMARY | 2024-08-02 19:30 | External Medical Summary | Summary of Care ---
Author Name Unknown Organization [facility] Address [address] [place] [address] Phone [phone] Care Team Providers Care In Class Special Education Teacher Name Role Phone Dayanna Solorzano MD Primary Care Provider [phone] Reason for Visit * Reason Comments Outpatient Testing Encounter Details Date Type Department Care Team (Late st Contact Info) Description 07/23/2024 12:30 PM EDT Laboratory Laboratory [facility] [address] [place] [phone] [facility] [address] [place] [address] Lytic lesion of bone on x-ray Allergies Active Allergy Reactions Criticality Noted Date [...] twice daily 60 Tab 5 10/18/2018 Active [place]-3 1000 MG Oral Capsule Take by mouth. [...] mRNA, LNP-s, No Pre serve, 2-Dose Series ([place]) 11/04/2021,02/14/2021,01/24/2021 Covid-19, Mrna, Lnp-s, Pf, B ivalent, [...] AM EDT Office Visit General Internal Medicine [facility] [address] [place] [address] Zuleima Garcia MD [address] [facility] [place] [address] 08/27/2024 3:00 PM EDT Imaging Radiology, [place] [address] [place] [address] 10/06/2024 1:00 PM EST Cardiac Studies Cardiac Studies, [facility] [address] [facility] [place] [address] 10/15/2024 1:30 PM EST Office Visit Cardiology, [facility] 132 [facility] [place] [address] Antonio Garber, [address] [place] [address] Pending Results Name Type Priority Associated Diagnoses Date /Time MONOCLONAL GAMMOPATHIES SCREENING PANEL Lab Routine Lytic lesion of bone on x-ray 07/23/2024 12:40 PM EDT URINE PROTEIN ELECTROPHORESIS REFLEX PROFILE, RANDOM URINE Lab Routine Lytic lesion of bone on x-ray 07/23/2024 12:40 PM EDT SERUM PROTEIN ELECTROPHORESIS REFLEX PROFILE Lab Routine Lytic lesion of bone on x-ray 07/23/2024 12:40 PM EDT SERUM FREE LIGHT CHAINS Lab Routine Lytic lesion of bone on x-ray 07/23/2024 12:40 PM EDT Scheduled Procedures Name Priority Associated [...] D LEVEL ONCE IN A LIFETIME-USE SMARTSET# [id number] Completed 01/12/2023, 06/03/2021, 08/16/2018 HPV (Gardasil) Vaccine [...] as of this encounter Visit Diagnoses Diagnosis Lytic lesion of bone on x-ray Disorder of bone and cartilage, unspecified documented in this encounter Care Teams In Class Special Education Teacher Relationship Specialty Start Date End Date Dayanna Solorzano MD [address] [place] [address] PCP - General Internal Medicine 06/05/24 documented as of this encounter
--- OUTSIDE RECORDS SUMMARY | 2024-08-02 19:30 | External Medical Summary ---
Author Name Unknown Address Unknown Organization K01:[facility] [address] [place] [address] Laboratory Report Ordering Provider Test Date Status JAJA CHAPMAN 07/23/2024 12:40:04 Final Observation Date Value Abnormality Reference (Units ) Status IgG 07/23/2024 12:40:04 2593 Above high normal 70 0-1600 (mg/dL) Final IgA 07/23/2024 12:40:04 47 Below low normal 70- 400 (mg/dL) Final IgM 07/23/2024 12:40:04 54 40-230 (mg /dL) Final Performing Location LAB[facility]AT[facility] - [address] [place] [address]
--- OUTSIDE RECORDS SUMMARY | 2024-08-02 19:30 | External Medical Summary | Summary of Care ---
Author Name Unknown Organization [facility] Address [address] [place] [address] Phone [phone] Care Team Providers Care Chief Specialist Leed Name Role Phone Dayanna Solorzano MD Primary Care Provider [phone] Encounter Details Date Type Department Care Team (Late st Contact Info) Description 07/25/2024 Orders Only PATIENT PORTAL DO NOT DELETE THIS DEPT USED BY [place] [id number] Allergies Active Allergy Reactions Criticality Noted Date Comments Ezetimibe 11/28/2023 General malaise or feeling unwell Pantoprazole Hives 02/07/2022 GI upset Rosuvastatin 11/28/2023 Muscle aches/pains, fatigue Statins 11/01/2022 myalgia documented as of this encounter (statuses as of 07/25/2024) Medications Medication Sig Dispensed Refills Start Date End Date Status CYANOCOBALAMIN (VITAMIN B-12) 500 MCG Sublingual Tablet Take 2 Tablets by mouth in the morning. 08/18/2018 Active Calcium Carbonate-Vit D-Min (CALTRATE 600+D PLUS MINERALS) 600-800 MG-UNIT CHEWIndications:Vit britt D deficiency One tablet twice daily 60 Tab 5 10/18/2018 Active [place]-3 1000 MG Oral Capsule Take by mouth. [...] as of this encounter (statuses as of 07/25/2024) Active Problems Problem Noted Date Diagnosed Date Lytic lesion of bone on x-ray 07/23/2024 Senile osteoporosis 07/23/2024 Pulmonary edema cardiac cause 07/23/2024 Hyperlipidemia LDL goal <70 08/19/2023 H/O mitral valve repair 12/08/2019 Hx of tricuspid valve repair 12/08/2019 Paroxysmal A-fib 08/15/2019 Hypertension goal BP (blood pressure) < 130/80 documented as of this encounter (statuses as of 07/25/2024) Resolved Problems Problem Noted Date Diagnosed Date Resolved Date HTN, goal below 130/80 08/12/201808/16 documented as of this encounter (statuses as of 07/25/2024) Immunizations Name Administration Dates Next Due COVID-19 mRNA, LNP-s, No Pre serve, 2-Dose Series ([place]) 11/04/2021,02/14/2021,01/24/2021 Covid-19, Mrna, Lnp-s, Pf, B ivalent, [...] AM EDT Office Visit General Internal Medicine [facility] [address] [place] [address] Zuleima Garcia MD [address] [place] [address] 08/03/2024 11:30 AM EDT Office Visit Cardiology, [facility] [address] [employer] [place] [address] Saida Iraheta PA-C [address] [place] [address] 08/27/2024 3:00 PM EDT Imaging Radiology, [address] [place] [address] 10/01/2024 1:00 PM EST Office Visit General Internal Medicine [facility] [address] [place] [address] Zuleima Garcia MD [address] [facility] [place] [address] 10/06/2024 1:00 PM EST Cardiac Studies Cardiac Studies, [facility] [address] [employer] [place] [address] Scheduled Procedures Name Priority Associated Diagnoses Date/Ti me COLONOSCOPY FLEXIBLE PROXIMA L DIAGNOSTIC Recall Iron deficiency anemia due to chronic blood loss Health Maintenance Due Date Last Done Comments Fecal Occult Blood Test 1996 Sigmoidoscopy 1996 DXA Scan 2001 Cologuard 08/28/2021 08/28/2018 Depression Screening 11/01/2023 11/01/2022 COVID-19 Vaccine (2022- season) 2024 10/13/2023, 08/25/2022, 04/13/2022, Additional history [...] D LEVEL ONCE IN A LIFETIME-USE SMARTSET# [id number] Completed 01/12/2023, 06/03/2021, 08/16/2018 HPV (Gardasil) Vaccine [...] filedocumented as of this encounter Care Teams Chief Specialist Leed Relationship Specialty Start Date End Date Dayanna Solorzano MD [address] [place] [address], [place] [address] PCP - General Internal Medicine 06/05/24 documented as of this encounter
--- OUTSIDE RECORDS SUMMARY | 2024-08-02 19:30 | External Medical Summary | Summary of Care ---
Author Name Unknown Organization [facility] Address [address] [place] [address] Phone [phone] Care Team Providers Care Supervisor Extruding Department Name Role Phone Dayanna Solorzano MD Primary Care Provider [phone] Reason for Visit * Reason Onset Date Comments Hospital Follow-Up 07/21/2024 Encounter Details Date Type Department Care Team (Late st Contact Info) Description 07/21/2024 Telephone General Internal Medicine [facility] [address] [place], [place] [phone] Dayanna Solorzano MD 200 [place] [address] Hospital Follow-Up Allergies Active Allergy Reactions Criticality [...] twice daily 60 Tab 5 10/18/2018 Active [place]-3 1000 MG Oral Capsule Take by mouth. [...] mRNA, LNP-s, No Pre serve, 2-Dose Series ([place]) 11/04/2021,02/14/2021,01/24/2021 Covid-19, Mrna, Lnp-s, Pf, B ivalent, 30 Mcg, IM, 12 yrs and above ([place]) 08/25/2022 Pneumococcal Conjugate Vacc, 13 Valent (Prevnar) [...] 2 pm, it is one of those [employer]ER[employer] TEST ENGINEER CLOS in REL slots. Would we be able to open it for this patient to be seen. From what I am understanding, the appt needs to be with Dr. Garber, please advise, thank you. * Telephone Encounter - Alberto Madden RN - 07/21/2024 3:37 PM EDT Patient discharged 07/17/24 from [facility]. Cardiology consulted for new onset a-fib. Dr Garber recommends a cardiology follow up in 2 weeks with repeat BMP. Please assist the patient with scheduling this follow up. Thank you documented in this encounter Plan of Treatment Upcoming Encounters Date Type Department Care Team (Late st Contact Info) Description 07/30/2024 8:20 AM EDT Office Visit General Internal Medicine [facility] [address] [place] [address] [address] Zuleima Garcia MD [address] [place] [address] 08/27/2024 3:00 PM EDT Imaging Radiology, [facility] [address] [facility] [place] [address] 09/07/2024 10:00 AM EDT Office Visit Cardiology, [facility] [place] [address] Antonio Garber DO [address] [facility] [place] [address] 10/01/2024 1:00 PM EST Office Visit General Internal Medicine [facility] [address] [place] [address] [address] Zuleima Garcia MD [address] [address] 10/06/2024 1:00 PM EST Cardiac Studies Cardiac Studies, [facility] [place] [address] Scheduled Procedures Name Priority Associated Diagnoses Date/Ti [...] D LEVEL ONCE IN A LIFETIME-USE SMARTSET# [id number] Completed 01/12/2023, 06/03/2021, 08/16/2018 HPV (Gardasil) Vaccine [...] filedocumented as of this encounter Care Teams Supervisor Extruding Department Relationship Specialty Start Date End Date Dayanna Solorzano MD [address] [place] [address] PCP - General Internal Medicine 06/05/24 documented as of this encounter
--- OUTSIDE RECORDS SUMMARY | 2024-08-02 19:30 | External Medical Summary | Summary of Care ---
Author Name Unknown Organization [facility] Address [address] [place] [address] Phone [phone] Care Team Providers Care Radiology Therapist Name Role Phone Dayanna Solorzano MD Primary Care Provider [phone] Reason for Visit * Reason Onset Date Comments FYI 07/28/2024 Encounter Details Date Type Department Care Team (Late st Contact Info) Description 07/28/2024 Telephone General Internal Medicine [facility] 200 [place], [place] [phone] Zuleima Garcia MD 200 [place], [place] [phone] FY Allergies Active Allergy Reactions Criticality Noted Date Comments Ezetimibe 11/28/2023 General malaise or feeling unwell Pantoprazole Hives 02/07/2022 GI upset Rosuvastatin 11/28/2023 Muscle aches/pains, fatigue Statins 11/01/2022 myalgia documented as of this encounter (statuses as of 07/28/2024) Medications Medication Sig Dispensed Refills Start Date End Date Status CYANOCOBALAMIN (VITAMIN B-12) 500 MCG Sublingual Tablet Take 2 Tablets by mouth in the morning. 08/18/2018 Active Calcium Carbonate-Vit D-Min (CALTRATE 600+D PLUS MINERALS) 600-800 MG-UNIT CHEWIndications:Vit britt D deficiency One tablet twice daily 60 Tab 5 10/18/2018 Active [place]-3 1000 MG Oral Capsule Take by mouth. [...] as of this encounter (statuses as of 07/28/2024) Active Problems Problem Noted Date Diagnosed Date Lytic lesion of bone on x-ray 07/23/2024 Senile osteoporosis 07/23/2024 Pulmonary edema cardiac cause 07/23/2024 Hyperlipidemia LDL goal <70 08/19/2023 H/O mitral valve repair 12/08/2019 Hx of tricuspid valve repair 12/08/2019 Paroxysmal A-fib 08/15/2019 Hypertension goal BP (blood pressure) < 130/80 documented as of this encounter (statuses as of 07/28/2024) Resolved Problems Problem Noted Date Diagnosed Date Resolved Date HTN, goal below 130/80 08/12/201808/16 documented as of this encounter (statuses as of 07/28/2024) Immunizations Name Administration Dates Next Due COVID-19 mRNA, LNP-s, No Pre serve, 2-Dose Series ([place]) 11/04/2021,02/14/2021,01/24/2021 Covid-19, Mrna, Lnp-s, Pf, B ivalent, [...] encounter Miscellaneous Notes * Telephone Encounter - Zuleima Garcia MD - 07/28/2024 12:49 PM EDT Spoke with the patient and her daughter we in a regards to abnormal SPEP and protein electrophoresis. Patient does not want to see any international coordinator and does not want any active treatment. Aware aboutall the long-term consequences from not taking any treatment. documented in this encounter Plan of Treatment Upcoming Encounters Date Type Department Care Team (Late st Contact Info) Description 08/03/2024 11:30 AM EDT Office Visit Cardiology, [facility] [address] [address] Saida Iraheta PA-C [address] [place] [address] 08/27/2024 3:00 PM EDT Imaging Radiology, [facility] [address] [facility] [place] [address] 10/01/2024 1:00 PM EST Office Visit General Internal Medicine [facility] [address] [place] [address] Zuleima Garcia MD [address] [address] 10/06/2024 1:00 PM EST [facility] [address] [place] [address] Scheduled Procedures Name Priority Associated Diagnoses Date/Ti [...] D LEVEL ONCE IN A LIFETIME-USE SMARTSET# [id number] Completed 01/12/2023, 06/03/2021, 08/16/2018 HPV (Gardasil) Vaccine [...] filedocumented as of this encounter Care Teams Radiology Therapist Relationship Specialty Start Date End Date Dayanna Solorzano MD 200 [facility] [place] [address] PCP - General Internal Medicine 06/05/24 documented as of this encounter
--- OUTSIDE RECORDS SUMMARY | 2024-08-02 19:31 | External Medical Summary | Summary of Care ---
Author Name Unknown Organization [facility] Address [address] [place] [address] Phone [phone] Care Team Providers Care Party Host/Hostess Name Role Phone Dayanna Solorzano MD Primary Care Provider [phone] Encounter Details Date Type Department Care Team (Late st Contact Info) Description 07/17/2024 Orders Only General Internal Medicine [facility] 200 [facility] [place] [phone] Dayanna Solorzano MD 200 [place] [address] Allergies Active Allergy Reactions Criticality Noted Date Comments Ezetimibe 11/28/2023 General malaise or feeling unwell Pantoprazole Hives 02/07/2022 GI upset Rosuvastatin 11/28/2023 Muscle aches/pains, fatigue Statins 11/01/2022 myalgia documented as of this encounter (statuses as of 07/17/2024) Medications Medication Sig Dispensed Refills Start Date End Date Status CYANOCOBALAMIN (VITAMIN B-12) 500 MCG Sublingual Tablet Take 2 Tablets by mouth in the morning. 08/18/2018 Active Calcium Carbonate-Vit D-Min (CALTRATE 600+D PLUS MINERALS) 600-800 MG-UNIT CHEWIndications:Pad[place] min D deficiency One tablet twice daily 60 Tab 5 10/18/2018 Active [place]-3 1000 MG Oral Capsule Take by mouth. [...] as of this encounter (statuses as of 07/17/2024) Active Problems Problem Noted Date Diagnosed Date Hyperlipidemia LDL goal <70 08/19/2023 H/O mitral valve repair 12/08/2019 Hx of tricuspid valve repair 12/08/2019 Paroxysmal A-fib 08/15/2019 Hypertension goal BP (blood pressure) < 130/80 documented as of this encounter (statuses as of 07/17/2024) Resolved Problems Problem Noted Date Diagnosed Date Resolved Date HTN, goal below 130/80 08/12/201808/16 documented as of this encounter (statuses as of 07/17/2024) Immunizations Name Administration Dates Next Due COVID-19 mRNA, LNP-s, No Pre serve, 2-Dose Series ([place]) 11/04/2021,02/14/2021,01/24/2021 Covid-19, Mrna, Lnp-s, Pf, B ivalent, 30 Mcg, IM, 12 yrs and above ([place]) 08/25/2022 Pneumococcal Conjugate Vacc, 13 Valent (Prevnar) [...] AM EDT Office Visit General Internal Medicine [facility] [address] [place] [address] Zuleima Garcia MD 200 [facility] [place] [address] 07/30/2024 8:20 AM EDT Office Visit General Internal [facility] [place] [address] [place] [address] Zuleima Garcia MD 200 [facility] [place] [address] 10/06/2024 1:00 PM EST Cardiac Studies Cardiac Studies, [facility] [address] [facility] [place] [address] 10/15/2024 1:30 PM EST Office Visit Cardiology, [facility] [address] [facility] [place] [address] Antonio Garber, DO [address] [place] [address] Scheduled Procedures Name Priority Associated Diagnoses Date/Ti [...] Procedure Name Priority Date/Time Associated Diagnosis Comments CTA CHEST NON-CORONARY W CONTRAST Routine 07/15/2024 documented in this encounter Results * CTA CHEST NON-CORONARY W CONTRAST (07/15/2024) Anatomical Region Laterality Modality Chest, Cardio, Body Other 07/15/2024 Nolberto G[address] MD RAD CT documented in this encounter Care Teams Party Host/Hostess Relationship Specialty Start Date End Date Dayanna Solorzano MD 200 [facility] [place] [address] PCP - General Internal Medicine 06/05/24 documented as of this encounter
--- NOTE | 2024-08-02 20:10 | Emergency Department Note ---
Impression & Plan Acute dyspnea, Acute exacerbation of CHF (congestive heart failure), Pulmonary edema, Acute hyponatremia, Elevated brain natriuretic peptide (BNP) level ED Provider Note HISTORY OF PRESENT ILLNESS: Patient is a 74-year-old female presenting with sudden onset of shortness of breath. Daughter helps provide history. The patient was just recently admitted for CHF exacerbation. She does not wear any supplemental oxygen at baseline. She had acute onset of shortness of breath around 1800 this evening. Denies any chest pain with the shortness of breath. She seemed to be working hard to breathe so family brought her to the emergency room. Patient denies any DVT or PE history. She is on Eliquis and has not missed any doses. She reports she took an extra dose of her furosemide this evening with little relief in her symptoms. Denies any noticeable lower extremity edema. She denies any recent sick contact exposures. Denies any cough or fevers. ROS: as above PHYSICAL EXAM: Constitutional: Patient appears in no acute distress. HENT: Head: Normocephalic and atraumatic. Eyes: EOMI, PERRL Mouth/Throat: Mucous membranes moist. Neck: Trachea midline. Neck supple. Cardiovascular: RRR, No murmurs, rubs or gallops. Intact distal pulses. Pulmonary/Chest: No respiratory distress. Breath sounds clear and equal bilaterally. No wheezes or rales. Abdominal: Abdomen soft, no tenderness, rebound or guarding. Musculoskeletal: No edema, tenderness or deformity noted. Skin: Warm and dry. No rash, erythema, pallor or cyanosis Psychiatric: Appropriate mood and affect for situation. Neurological: Alert and keenly responsive. CN II-XII grossly intact, moving all extremities equally and fully. MDM: - Vitals signs stable. Patient was placed on supplemental oxygen secondary to her work of breathing by nursing staff. - History obtained via patient. History as above. - Chronic conditions affecting care: HTN; Afib; mitral valve repair; HLD; CHF - Differential diagnoses include, but are not limited to: Congestive heart failure; acute coronary syndrome; COPD/asthma exacerbation; pulmonary edema; pulmonary embolism; pneumonia; pneumothorax; viral syndrome - Order placed for continuous cardiac monitoring. At this time, monitor showed rate of 61 bpm with normal sinus rhythm, per my interpretation. - External medical records reviewed. Discharge summary dated 07/17/2024 was reviewed. Patient was admitted with A-fib with RVR and acute heart failure with preserved ejection fraction. - EKG interpreted by myself showed normal sinus rhythm. Rate 76 bpm. QT prolonged at 440. Noted to have some ST depressions in leads V4 through V6. - Laboratory workup interpreted by myself showed normal WBC; normal PT/INR; hyponatremia (Na 128); normal troponin; elevated BNP (1264) - UA negative for infection - VBG grossly normal - CXR negative for pneumonia, per my interpretation - Viral respiratory panel negative - CT PE negative for PE, but noted to have interstitial thickening concerning for pulmonary edema and airspace opacities in the right lower lobe concerning for an atypical infection and/or aspiration. Also noted to have trace bilateral effusions. - Discussion was had with casework supervisor about patient's case and need for admission - Hospitalist, Dr. Fuller, consulted for admission - Patient admitted to [facility] service for further evaluation and management. ASSESSMENT AND PLAN: Diagnosis: Acute dyspnea; pulmonary edema; acute hyponatremia; elevated BNP; CHF exacerbation Plan: admit Past Med/Surg History Problem List (Updated 08/03/24 @ 00:02 by Lilian Ponce MD) Elevated brain natriuretic peptide (BNP) level (Acute) Acute hyponatremia (Acute) Pulmonary edema (Acute) Acute exacerbation of CHF (congestive heart failure) (Acute) Acute dyspnea (Acute) Paroxysmal A-fib Acute heart failure with preserved ejection fraction Abnormal CT of the chest Hyperglycemia Chronic anemia Dyslipidemia H/O tricuspid valve repair Hx of mitral valve repair Hypoxia (Acute) Volume overload (Acute) Atrial fibrillation with RVR (Acute) Hypertension Acute upper gastrointestinal bleeding (Acute) Anemia (Acute) Abnormal EKG (Acute) Black stool Medical History Paroxysmal A-fib History of anemia History of hyperlipidemia Social History Smoking Status: Never smoker Second Hand Exposure: No; Do You Dip or Chew Tobacco: No; Hx Alcohol Use: No Hx Substance Use: No Preferred Language: Romanian Communication Ability: Effective Tassel Maker Required: No Beliefs That Will Affect Care: None Current Living Situation: Family Current Living Situation Comment: Daughter and granddaughter Feels Safe at Home: Yes Assistive Devices: None Allergies Allergies Allergy/AdvReac Type Severity Reaction Status Date / Time pantoprazole Allergy Severe Gastrointestinal Verified 08/02/24 22:41 Upset prednisone AdvReac Severe Cramping Verified 08/02/24 22:41 of the Muscles Home Meds Home Medications Medication Instructions Recorded Confirmed amlodipine 5 mg tablet 5 mg PO QPM 08/10/21 08/02/24 calcium carbonate 600 mg-vitamin 1 cap PO QAM 08/10/21 08/02/24 D3 12.5 mcg (500 unit) capsule (Calcium 600 with Vitamin D3) cyanocobalamin (vitamin B-12) 500 500 mcg PO QAM 08/10/21 08/02/24 mcg tablet (Vitamin B-12) magnesium 100 mg tablet 100 mg PO QAM 08/10/21 08/02/24 aspirin 81 mg chewable tablet 81 mg PO QDB 07/15/24 08/02/24 Previous Rx's Medication Instructions Recorded ferrous sulfate 325 mg (65 mg 325 mg PO QAM #30 tabs 08/13/21 iron) tablet,delayed release apixaban 5 mg tablet (Eliquis) 5 mg PO BID #60 tabs 07/17/24 metoprolol succinate 25 mg 25 mg PO HS #0 tabs 07/17/24 tablet,extended release 24 hr metoprolol succinate 50 mg 50 mg PO QAM #30 tabs 07/17/24 tablet,extended release 24 hr Results & Data (ED) Vital Signs Vital Signs - 24 hr 08/02/24 19:28 08/02/24 19:34 08/02/24 19:44 Temperature 36.6 C Temperature Source Temporal Artery Scan Pulse Rate 78 Pulse Rate [Apical] 63 Pulse Rhythm Regular Pulse Strength Normal Respiratory Rate 24 12 Respiratory Effort / Characteristics Non-Labored Spontaneous Spontaneous Labored Spontaneous Labored Pursed Lip Tripoding Respiratory Depth Normal Deep Deep Respiratory Pattern Regular Regular Apnea Gasping Blood Pressure 146/80 H Blood Pressure [Left Arm] 119/74 Blood Pressure Mean 102 Blood Pressure Mean [Left Arm] 89 Blood Pressure Position Sitting Blood Pressure Position [Left Arm] Semi-fowlers Pulse Oximetry 95 100 Oxygen Delivery Method Room Air Nasal Cannula Room Air Oxygen Flow Rate 2 Sepsis Recent Fever Within 48 Hours No Sepsis New/Unexplained Change in Mental Status N/A Sepsis Action Taken by Nursing No Action Required 08/02/24 19:44 08/02/24 19:44 08/02/24 19:44 Temperature Temperature Source Pulse Rate 69 Pulse Rate [Apical] 71 Pulse Rhythm Pulse Strength Respiratory Rate 20 15 Respiratory Effort / Characteristics Spontaneous Labored Tripoding Respiratory Depth Respiratory Pattern Gasping Tachypnea Blood Pressure Blood Pressure [Left Arm] 132/76 Blood Pressure Mean Blood Pressure Mean [Left Arm] 94 Blood Pressure Position Blood Pressure Position [Left Arm] Semi-fowlers Pulse Oximetry 95 93 95 Oxygen Delivery Method Room Air Room Air Room Air Oxygen Flow Rate Sepsis Recent Fever Within 48 Hours Sepsis New/Unexplained Change in Mental Status Sepsis Action Taken by Nursing 08/02/24 19:47 08/02/24 21:18 08/02/24 22:52 Temperature Temperature Source Pulse Rate 69 Pulse Rate [Apical] 61 72 Pulse Rhythm Pulse Strength Respiratory Rate 15 17 Respiratory Effort / Characteristics Non-Labored Spontaneous Non-Labored Spontaneous Respiratory Depth Normal Normal Respiratory Pattern Regular Regular Blood Pressure Blood Pressure [Left Arm] 136/74 133/83 Blood Pressure Mean Blood Pressure Mean [Left Arm] 94 99 Blood Pressure Position Blood Pressure Position [Left Arm] Semi-fowlers Semi-fowlers Pulse Oximetry 100 94 Oxygen Delivery Method Nasal Cannula Room Air Oxygen Flow Rate 2 Sepsis Recent Fever Within 48 Hours Sepsis New/Unexplained Change in Mental Status Sepsis Action Taken by Nursing 08/02/24 23:50 Temperature Temperature Source Pulse Rate 63 Pulse Rate [Apical] Pulse Rhythm Pulse Strength Respiratory Rate Respiratory Effort / Characteristics Respiratory Depth Respiratory Pattern Blood Pressure Blood Pressure [Left Arm] Blood Pressure Mean Blood Pressure Mean [Left Arm] Blood Pressure Position Blood Pressure Position [Left Arm] Pulse Oximetry Oxygen Delivery Method Oxygen Flow Rate Sepsis Recent Fever Within 48 Hours Sepsis New/Unexplained Change in Mental Status Sepsis Action Taken by Nursing Laboratory Data 08/02/24 20:01 08/02/24 20:01 Lab Results 08/02/24 08/02/24 08/02/24 Range/Units 19:41 20:01 20:04 WBC 8.13 (4.8-10.8) K/ul RBC 3.49 L (4.20-5.40) M/uL Hgb 10.7 L (12.0-16.0) g/dl Hct 31.9 L (37.0-47.0) % MCV 91.4 (80.0-100.0) fL MCH 30.7 (25.0-34.0) pg MCHC 33.5 (32.0-36.0) g/dL RDW Std Deviation 43.3 (36.4-46.3) fL RDW Coeff of Nalini 13.1 (11.5-14.5) % Plt Count 191 (130-400) K/uL MPV 10.1 (9.4-12.4) fL Immature Gran % (Auto) 0.6 % Neut % (Auto) 67.9 % Lymph % (Auto) 21.0 % Deuel % (Auto) 7.9 % Eos % (Auto) 2.1 % Baso % (Auto) 0.5 % Neut # (Auto) 5.52 (1.40-6.50) K/uL Lymph # (Auto) 1.71 (1.20-3.40) K/uL Deuel # (Auto) 0.64 H (0.11-0.59) K/uL Eos # (Auto) 0.17 (0.00-0.50) K/uL Baso # (Auto) 0.04 (0.00-0.20) K/uL Immature Gran # (Auto) 0.05 (0.01-0.20) K/uL PT 11.5 (9.0-12.0) Seconds INR 1.1 (0.9-1.1) VBG pH 7.35 L (7.36-7.41) VBG pCO2 44 (38-50) mmHg VBG pO2 49 mmHg VBG HCO3 24 mmol/L VBG O2 Saturation 77.9 % VBG Base Excess -1.5 mEq/L Sodium 128 L (136-145) mmol/L Potassium 4.1 (3.5-5.1) mmol/L Chloride 93 L (98-107) mmol/L Carbon Dioxide 25 (21-32) mmol/L Anion Gap 10 (3-11) BUN 9 (6-23) mg/dl Creatinine 0.67 (0.6-1.2) mg/dl Est Cr Clr Drug Dosing 64.6 ml/min Est GFR ( Amer) 101.1 ml/min Est GFR (Non-Af Amer) 87.2 ml/min BUN/Creatinine Ratio 13.4 (10-20) Glucose 133 H (70-99(Fasting)) mg/dl Calcium 9.6 (8.6-10.3) mg/dl Magnesium 1.9 (1.7-2.4) mg/dl Total Bilirubin 0.3 (0.2-1.0) mg/dl AST 18 (13-39) U/L ALT 11 (7-52) U/L Alkaline Phosphatase 76 (34-104) U/L Troponin I High Sens 8.3 (0-14) pg/ml B-Natriuretic Peptide 1264 H (0-100) pg/ml Total Protein 8.8 H (6.0-8.3) gm/dl Albumin 3.7 (3.4-5.0) gm/dl Globulin 5.1 H (2.5-4.0) gm/dl Albumin/Globulin Ratio 0.7 L (0.9-2) Urine Color Urine Appearance (Clear) Urine pH (4.5-7.5) Ur Specific [place] (1.000-1.030) Urine Protein (Negative) Urine Glucose (UA) (Negative) Urine Ketones (Negative) Urine Blood (Negative) Urine Nitrite (Negative) Urine Bilirubin (Negative) Urine Urobilinogen (Negative) Ur Leukocyte Esterase (Negative) Urine WBC (Auto) (0-5) /hpf Urine RBC (Auto) (0-2) /hpf U Hyaline Cast (Auto) (0-2) /lpf U Epithel Cells (Auto) (0-2) /hpf Urine Bacteria (Auto) (None Seen) Adenovirus (PCR) Not Detected (NotDetected) B. pertussis DNA (PCR) Not Detected (NotDetected) B.parapertussis DNA PCR Not Detected (NotDetected) C. pneumoniae DNA (PCR) Not Detected (NotDetected) Coronavirus OC43 (PCR) Not Detected (NotDetected) Coronavirus HKU1 (PCR) Not Detected (NotDetected) Coronavirus 229E (PCR) Not Detected (NotDetected) SARS-CoV-2 (PCR) Not Detected (NotDetected) Coronavirus NL63 (PCR) Not Detected (NotDetected) Human Metapneumovir PCR Not Detected (NotDetected) Influenza Type A (PCR) Not Detected (NotDetected) Influenza Type B (PCR) Not Detected (NotDetected) M. pneumoniae (PCR) Not Detected (NotDetected) Parainfluenza 1 (PCR) Not Detected (NotDetected) Parainfluenza 2 (PCR) Not Detected (NotDetected) Parainfluenza 3 (PCR) Not Detected (NotDetected) Parainfluenza 4 (PCR) Not Detected (NotDetected) RSV (PCR) Not Detected (NotDetected) Entero/Rhino (PCR) Not Detected (NotDetected) 08/02/24 Range/Units 20:32 WBC (4.8-10.8) K/ul RBC (4.20-5.40) M/uL Hgb (12.0-16.0) g/dl Hct (37.0-47.0) % MCV (80.0-100.0) fL MCH (25.0-34.0) pg MCHC (32.0-36.0) g/dL RDW Std Deviation (36.4-46.3) fL RDW Coeff of Nalini (11.5-14.5) % Plt Count (130-400) K/uL MPV (9.4-12.4) fL Immature Gran % (Auto) % Neut % (Auto) % Lymph % (Auto) % Deuel % (Auto) % Eos % (Auto) % Baso % (Auto) % Neut # (Auto) (1.40-6.50) K/uL Lymph # (Auto) (1.20-3.40) K/uL Deuel # (Auto) (0.11-0.59) K/uL Eos # (Auto) (0.00-0.50) K/uL Baso # (Auto) (0.00-0.20) K/uL Immature Gran # (Auto) (0.01-0.20) K/uL PT (9.0-12.0) Seconds INR (0.9-1.1) VBG pH (7.36-7.41) VBG pCO2 (38-50) mmHg VBG pO2 mmHg VBG HCO3 mmol/L VBG O2 Saturation % VBG Base Excess mEq/L Sodium (136-145) mmol/L Potassium (3.5-5.1) mmol/L Chloride (98-107) mmol/L Carbon Dioxide (21-32) mmol/L Anion Gap (3-11) BUN (6-23) mg/dl Creatinine (0.6-1.2) mg/dl Est Cr Clr Drug Dosing ml/min Est GFR ( Amer) ml/min Est GFR (Non-Af Amer) ml/min BUN/Creatinine Ratio (10-20) Glucose (70-99(Fasting)) mg/dl Calcium (8.6-10.3) mg/dl Magnesium (1.7-2.4) mg/dl Total Bilirubin (0.2-1.0) mg/dl AST (13-39) U/L ALT (7-52) U/L Alkaline Phosphatase (34-104) U/L Troponin I High Sens (0-14) pg/ml B-Natriuretic Peptide (0-100) pg/ml Total Protein (6.0-8.3) gm/dl Albumin (3.4-5.0) gm/dl Globulin (2.5-4.0) gm/dl Albumin/Globulin Ratio (0.9-2) Urine Color Yellow Urine Appearance Clear (Clear) Urine pH 5.5 (4.5-7.5) Ur Specific [place] 1.007 (1.000-1.030) Urine Protein Negative (Negative) Urine Glucose (UA) Negative (Negative) Urine Ketones Negative (Negative) Urine Blood Negative (Negative) Urine Nitrite Negative (Negative) Urine Bilirubin Negative (Negative) Urine Urobilinogen Negative (Negative) Ur Leukocyte Esterase Trace H (Negative) Urine WBC (Auto) 0-5 (0-5) /hpf Urine RBC (Auto) 0-2 (0-2) /hpf U Hyaline Cast (Auto) 0-2 (0-2) /lpf U Epithel Cells (Auto) 0-2 (0-2) /hpf Urine Bacteria (Auto) None Seen (None Seen) Adenovirus (PCR) (NotDetected) B. pertussis DNA (PCR) (NotDetected) B.parapertussis DNA PCR (NotDetected) C. pneumoniae DNA (PCR) (NotDetected) Coronavirus OC43 (PCR) (NotDetected) Coronavirus HKU1 (PCR) (NotDetected) Coronavirus 229E (PCR) (NotDetected) SARS-CoV-2 (PCR) (NotDetected) Coronavirus NL63 (PCR) (NotDetected) Human Metapneumovir PCR (NotDetected) Influenza Type A (PCR) (NotDetected) Influenza Type B (PCR) (NotDetected) M. pneumoniae (PCR) (NotDetected) Parainfluenza 1 (PCR) (NotDetected) Parainfluenza 2 (PCR) (NotDetected) Parainfluenza 3 (PCR) (NotDetected) Parainfluenza 4 (PCR) (NotDetected) RSV (PCR) (NotDetected) Entero/Rhino (PCR) (NotDetected) Administered Medications Discontinued Medications Ioversol (Optiray 320 125ml) 125 ml IV ONCE ONE Stop: 08/02/24 22:47 Last Admin: 08/02/24 22:46 Dose: 118 ml Documented By: JJ Imaging Data Radiologist's Impression: Chest CTA 08/02/24 21:56 Exam(s): CTA CHEST IV Amt: 118 ML OPTIRAY 320 EXAM: CT Angiography Chest With Intravenous Contrast CLINICAL HISTORY: PE. TECHNIQUE: Axial computed tomographic angiography images of the chest with intravenous contrast. MIPS images were created and reviewed. CTDI is 11 mGy and DLP is 339.2 mGy-cm. Automated exposure control was utilized for the study. A dose lowering technique was utilized adhering to the principles of ALARA. MIP reconstructed images were created and reviewed. COMPARISON: CTA chest 07/15/2024. FINDINGS: Pulmonary arteries: There is dilation of the pulmonary arteries. No pulmonary embolus. Aorta: There is ectasia of the ascending aorta measuring 3.9 cm. No thoracic aortic aneurysm. Lungs: Interseptal thickening is concerning for pulmonary edema. Additional airspace opacities of the right lower lobe is concerning for superimposed atypical infection and/or aspiration. Pleural space: Trace bilateral pleural effusions. No pneumothorax. Heart: Cardiomegaly. No significant pericardial effusion. No evidence of RV dysfunction. Mediastinum: Unremarkable. Thyroid: There is a partially calcified 2.4 cm right thyroid nodule. Bones/joints: There are degenerative changes of the spine. No acute fracture. No dislocation. Soft tissues: Unremarkable. Lymph nodes: Mediastinal lymphadenopathy measures up to 0.9 cm. IMPRESSION: 1. No pulmonary embolus. 2. There is dilation of the pulmonary arteries. This is concerning for pulmonary artery hypertension. 3. There is ectasia of the ascending aorta measuring 3.9 cm. 4. Interseptal thickening is concerning for pulmonary edema. 5. Additional airspace opacities of the right lower lobe is concerning for superimposed atypical infection and/or aspiration. 6. Trace bilateral pleural effusions. 7. There is a partially calcified 2.4 cm right thyroid nodule. Recommend further evaluation with dedicated thyroid ultrasound on a nonemergent basis. 8. Cardiomegaly. 9. Mediastinal lymphadenopathy measures up to 0.9 cm. This could be infectious, inflammatory or neoplastic. Electronically signed by: Dinah Roland MD 08/02/24 23:40 PM Discharge Plan Visit Data Chief Complaint: Shortness of Breath/Dyspnea Stated Complaint: SOB ED Provider: Lilian Ponce Discharge Problem: Acute dyspnea, Acute exacerbation of CHF (congestive heart failure), Pulmonary edema, Acute hyponatremia, Elevated brain natriuretic peptide (BNP) level Forms Stand Alone Forms: [facility] [employer] Prescriptions Prescriptions: No Action cyanocobalamin (vitamin B-12) [Vitamin B-12] 500 mcg Tablet 500 mcg PO QAM magnesium 100 mg Tablet 100 mg PO QAM calcium carbonate-vitamin D3 [Calcium 600 with Vitamin D3] 600 mg(1,500mg) - 500 unit Capsule 1 cap PO QAM amlodipine 5 mg tablet 5 mg PO QPM ferrous sulfate 325 mg (65 mg iron) Tablet,Delayed Release (Dr/Ec) 325 mg PO QAM Qty: 30 1RF aspirin 81 mg tablet,chewable 81 mg PO QDB metoprolol succinate 50 mg Tablet Extended Release 24 Hr 50 mg PO QAM Qty: 30 1RF Eliquis 5 mg Tablet 5 mg PO BID Qty: 60 2RF metoprolol succinate 25 mg tablet extended release 24 hr 25 mg PO HS Qty: 0 0RF Referrals Referrals: Zuleima Garcia MD [Primary Care Provider] -
[2024-08-02 20:25] LABS: Base Excess VBG -1.5 mEq/L; HCO3 VBG 24 mmol/L; Oxygen Saturation VBG 77.9 %; PCO2 VBG 44 mmHg (38-50); PO2 VBG 49 mmHg; pH VBG 7.35 (7.36-7.41)
[2024-08-02 20:38] LABS: Basophils # (auto) 0.04 K/uL (0.00-0.20); Basophils % (auto) 0.5 %; Eosinophils # (auto) 0.17 K/uL (0.00-0.50); Eosinophils % (auto) 2.1 %; Hematocrit (blood only) 31.9 % (37.0-47.0); Hemoglobin 10.7 g/dl (12.0-16.0); Immature Granulocytes # (auto) 0.05 K/uL (0.01-0.20); Immature Granulocytes % (auto) 0.6 %; Lymphocytes # (auto) 1.71 K/uL (1.20-3.40); Mean Corpuscular Hemoglobin 30.7 pg (25.0-34.0); Mean Corpuscular Hgb Conc 33.5 g/dL (32.0-36.0); Mean Corpuscular Volume 91.4 fL (80.0-100.0); Mean Platelet Volume 10.1 fL (9.4-12.4); Monocytes # (auto) 0.64 K/uL (0.11-0.59); Monocytes % (auto) 7.9 %; Neutrophils # (auto) 5.52 K/uL (1.40-6.50); Neutrophils % (auto) 67.9 %; Platelet Count 191 K/uL (130-400); RDW Coefficient of Variation 13.1 % (11.5-14.5); RDW Standard Deviation 43.3 fL (36.4-46.3); Red Blood Count 3.49 M/uL (4.20-5.40); White Blood Count 8.13 K/ul (4.8-10.8)
[2024-08-02 20:55] LABS: Albumin Globulin Ratio 0.7 (0.9-2); Albumin Level 3.7 gm/dl (3.4-5.0); BUN Creatinine Ratio 13.4 (10-20); Bilirubin,Total 0.3 mg/dl (0.2-1.0); Calcium 9.6 mg/dl (8.6-10.3); Creatinine Clr Calc Pharmacy 64.6 ml/min; Est GFR (African American) 101.1 ml/min; Est GFR (Non-African American) 87.2 ml/min; Globulin 5.1 gm/dl (2.5-4.0); Magnesium 1.9 mg/dl (1.7-2.4); Potassium 4.1 mmol/L (3.5-5.1); Total Protein 8.8 gm/dl (6.0-8.3)
[2024-08-02 21:00] LABS: Appearance Urine Clear (Clear); Bacteria Urine Automated None Seen (None Seen); Bilirubin Urine Negative (Negative); Blood Urine Negative (Negative); Cast Urine Automated 0-2 /lpf (0-2); Color Urine Yellow; Epithelial Cell Urine Auto 0-2 /hpf (0-2); Glucose Urine UA Negative (Negative); Ketones Urine Negative (Negative); Leukocyte Esterase Urine Trace (Negative); Nitrite Urine Negative (Negative); Protein Urine Negative (Negative); RBC Urine Automated 0-2 /hpf (0-2); Specific Gravity Urine 1.007 (1.000-1.030); Urobilinogen Urine Negative (Negative); WBC Urine Automated 0-5 /hpf (0-5); pH Urine 5.5 (4.5-7.5)
[2024-08-02 21:01] LABS: Troponin I High Sensitivity 8.3 pg/ml (0-14)
[2024-08-02 21:02] LABS: INR 1.1 (0.9-1.1); Prothrombin Time 11.5 Seconds (9.0-12.0)
[2024-08-02 21:21] LABS: Adenovirus PCR Not Detected (NotDetected); Bordetella parapertussis PCR Not Detected (NotDetected); Bordetella pertussis PCR Not Detected (NotDetected); Chlamydia pneumoniae PCR Not Detected (NotDetected); Coronavirus 229E PCR Not Detected (NotDetected); Coronavirus CoV-2 (COVID19)PCR Not Detected (NotDetected); Coronavirus HKU1 PCR Not Detected (NotDetected); Coronavirus NL63 PCR Not Detected (NotDetected); Coronavirus OC43PCR Not Detected (NotDetected); Human Metapneumovirus PCR Not Detected (NotDetected); Influenza A PCR Not Detected (NotDetected); Influenza B PCR Not Detected (NotDetected); Mycoplasma pneumoniae PCR Not Detected (NotDetected); Parainfluenza Virus 1 PCR Not Detected (NotDetected); Parainfluenza Virus 2 PCR Not Detected (NotDetected); Parainfluenza Virus 3 PCR Not Detected (NotDetected); Parainfluenza Virus 4 PCR Not Detected (NotDetected); Respiratory Syncytial VirusPCR Not Detected (NotDetected); Rhinovirus/Enterovirus PCR Not Detected (NotDetected)
[2024-08-02] MEDS: OPTIRAY 320 125ml IV ONE (22:46)
--- NOTE | 2024-08-02 23:41 | CT Scan Report ---
Exam(s): CTA CHEST IV Amt: 118 ML OPTIRAY 320 EXAM: CT Angiography Chest With Intravenous Contrast CLINICAL HISTORY: PE. TECHNIQUE: Axial computed tomographic angiography images of the chest with intravenous contrast. MIPS images were created and reviewed. CTDI is 11 mGy and DLP is 339.2 mGy-cm. Automated exposure control was utilized for the study. A dose lowering technique was utilized adhering to the principles of ALARA. MIP reconstructed images were created and reviewed. COMPARISON: CTA chest 07/15/2024. FINDINGS: Pulmonary arteries: There is dilation of the pulmonary arteries. No pulmonary embolus. Aorta: There is ectasia of the ascending aorta measuring 3.9 cm. No thoracic aortic aneurysm. Lungs: Interseptal thickening is concerning for pulmonary edema. Additional airspace opacities of the right lower lobe is concerning for superimposed atypical infection and/or aspiration. Pleural space: Trace bilateral pleural effusions. No pneumothorax. Heart: Cardiomegaly. No significant pericardial effusion. No evidence of RV dysfunction. Mediastinum: Unremarkable. Thyroid: There is a partially calcified 2.4 cm right thyroid nodule. Bones/joints: There are degenerative changes of the spine. No acute fracture. No dislocation. Soft tissues: Unremarkable. Lymph nodes: Mediastinal lymphadenopathy measures up to 0.9 cm. IMPRESSION: 1. No pulmonary embolus. 2. There is dilation of the pulmonary arteries. This is concerning for pulmonary artery hypertension. 3. There is ectasia of the ascending aorta measuring 3.9 cm. 4. Interseptal thickening is concerning for pulmonary edema. 5. Additional airspace opacities of the right lower lobe is concerning for superimposed atypical infection and/or aspiration. 6. Trace bilateral pleural effusions. 7. There is a partially calcified 2.4 cm right thyroid nodule. Recommend further evaluation with dedicated thyroid ultrasound on a nonemergent basis. 8. Cardiomegaly. 9. Mediastinal lymphadenopathy measures up to 0.9 cm. This could be infectious, inflammatory or neoplastic. Electronically signed by: Dinah Roland MD 08/02/24 23:40 PM
--- NOTE | 2024-08-03 01:53 | History & Physical Report ---
Date of Service August 03, 2024 Assessment & Plan (1) Acute heart failure with preserved ejection fraction: Plan: 74-year-old female with past medical history significant for myxomatous mitral valve disease, severe mitral regurgitation status post mitral valve repair, tricuspid valve repair, bilateral Maze procedure and left atrial appendage ligation on 11/07/2017, moderate to severe residual mitral regurgitation, history of paroxysmal atrial fibrillation status post left atrial appendage ligation, history of GI bleed, hypertension, statin intolerance, history of prolonged QT , hypertension, osteoporosis, hyperlipidemia, recent finding of lytic lesion bone x-ray and abnormal electrophoresis plan for hematology follow- up as per daughter comes in because of sudden onset of shortness of breath today evening. Patient was recently in the hospital for rapid A-fib and acute heart failure with preserved ejection fraction,metoprolol dose adjusted and was discharged on torsemide and potassium supplements on July 17. After discharge patient was having a lot of bloating diarrhea and poor appetite from potassium supplements and texted cardiology and was advised to stop potassium and increase potassium containing food with follow-up labs. Her last dose of potassium was on Saturday. Her outpatient labs on 07/29/2024 showed sodium of 132 and potassium of 5.2 and was advised to hold torsemide and ramipril over the weekend and repeat labs on Saturday. But because shortness of breath today evening she came to the ER. She took 40 mg of p.o. Lasix before coming to the ER. Patient currently resting comfortably and hemodynamically stable. Saturating okay on room air. Denies any cough. Denies any aspiration. No fevers. No chest pain. No headache. No runny nose or sore throat. Appetite has been poor. Currently no nausea. No abdominal discomfort. Currently no diarrhea. Micturating okay. Ambulating okay. Daughter is in the room helped with H&P. Patient is also able to give her history. Shortness of breath Most likely acute heart failure with preserved ejection fraction Possible aspiration/atypical pneumonia on the CAT scan. No PE Patient took Lasix 40 mg p.o. at home and seems comfortable at this time Closely monitor in telemetry She took last dose of torsemide on Saturday and currently held because of hyponatremia and hyperkalemia based on outpatient labs Echo done last admission moderate to severe mitral regurgitation Daily weights and I's and O's Further diuretics as per cardiology Possible aspiration pneumonitis Possible atypical pneumonia Empirically placed on p.o. Augmentin and Doxy Follow procalcitonin levels Speech evaluation for any aspiration Hyponatremia Sodium 128 Will follow urine osmolality, serum osmolality and urine sodium levels Follow repeat labs in a.m. If not improving will consult nephrology A-fib On metoprolol and Eliquis Hypertension On amlodipine, metoprolol Ramipril and torsemide on hold currently as outpatient labs showed hyponatremia and hyperkalemia. Patient also stopped potassium supplements as she could not tolerate them We will monitor Chronic anemia Hemoglobin 10.7 around baseline On iron supplement and vitamin B12 Follow-up Right ninth rib lytic lesion Abnormal SPEP and protein electrophoresis on recent labs as outpatient Seems patient does not want any further follow-up or treatment but daughter says she is going to follow-up with hematology/oncology Ascending aortic aneurysm Ectasia of ascending aorta Follow-up History of myxomatous mitral valve disease Severe mitral regurgitation s/p mitral repair, tricuspid valve repair, bilateral maze procedure and left atrial appendage ligation Residual moderate to severe mitral regurgitation Follow-up DVT prophylaxis On Eliquis Disposition Telemetry Full code. History of Present Illness Chief Complaint: Shortness of breath Primary Care Provider: Zuleima Garcia MD 74-year-old female with past medical history significant for myxomatous mitral valve disease, severe mitral regurgitation status post mitral valve repair, tricuspid valve repair, bilateral Maze procedure and left atrial appendage ligation on 11/07/2017, moderate to severe residual mitral regurgitation, history of paroxysmal atrial fibrillation status post left atrial appendage lig ation, history of GI bleed, hypertension, statin intolerance, history of prolonged QT , hypertension, osteoporosis, hyperlipidemia, recent finding of lytic lesion bone x-ray and abnormal electrophoresis plan for hematology follow- up as per daughter comes in because of sudden onset of shortness of breath today evening. Patient was recently in the hospital for rapid A-fib and acute heart failure with preserved ejection fraction,metoprolol dose adjusted and was discharged on torsemide and potassium supplements on July 17. After discharge patient was having a lot of bloating diarrhea and poor appetite from potassium supplements and texted cardiology and was advised to stop potassium and increase potassium containing food with follow-up labs. Her last dose of potassium was on Saturday. Her outpatient labs on 07/29/2024 showed sodium of 132 and potassium of 5.2 and was advised to hold torsemide and ramipril over the weekend and repeat labs on Saturday. But because shortness of breath today evening she came to the ER. She took 40 mg of p.o. Lasix before coming to the ER. Patient currently resting comfortably and hemodynamically stable. Saturating okay on room air. Denies any cough. Denies any aspiration. No fevers. No chest pain. No headache. No runny nose or sore throat. Appetite has been poor. Currently no nausea. No abdominal discomfort. Currently no diarrhea. Micturating okay. Ambulating okay. Daughter is in the room helped with H&P. Patient is also able to give her history. Past medical history. As mentioned above Past surgical history. Colonoscopy with biopsy. EGD. Cataracts. Repair of tricuspid fall. Social history. . No smoking. No alcohol use. No drug use. Family history. Father had heart attack age of 63. Sister had heart attack. Mother had stroke at age of 52. Allergies Allergy/AdvReac Type Severity Reaction Status Date / Time pantoprazole Allergy Severe Gastrointestinal Verified 08/02/24 22:41 Upset prednisone AdvReac Severe Cramping Verified 08/02/24 22:41 of the Muscles Home Medications Medication Instructions Recorded Confirmed Type amlodipine 5 mg tablet 5 mg PO QPM 08/10/21 08/02/24 History calcium carbonate 600 mg-vitamin 1 cap PO QAM 08/10/21 08/02/24 History D3 12.5 mcg (500 unit) capsule (Calcium 600 with Vitamin D3) cyanocobalamin (vitamin B-12) 500 500 mcg PO QAM 08/10/21 08/02/24 History mcg tablet (Vitamin B-12) magnesium 100 mg tablet 100 mg PO QAM 08/10/21 08/02/24 History ferrous sulfate 325 mg (65 mg 325 mg PO QAM #30 tabs 08/13/21 08/02/24 Rx iron) tablet,delayed release aspirin 81 mg chewable tablet 81 mg PO QDB 07/15/24 08/02/24 History apixaban 5 mg tablet (Eliquis) 5 mg PO BID #60 tabs 07/17/24 08/02/24 Rx metoprolol succinate 25 mg 25 mg PO HS #0 tabs 07/17/24 08/02/24 Rx tablet,extended release 24 hr metoprolol succinate 50 mg 50 mg PO QAM #30 tabs 07/17/24 08/02/24 Rx tablet,extended release 24 hr Past Med/Surg History Problem List (Updated 08/03/24 @ 00:02 by Lilian Ponce MD) Elevated brain natriuretic peptide (BNP) level (Acute) Acute hyponatremia (Acute) Pulmonary edema (Acute) Acute exacerbation of CHF (congestive heart failure) (Acute) Acute dyspnea (Acute) Paroxysmal A-fib Acute heart failure with preserved ejection fraction Abnormal CT of the chest Hyperglycemia Chronic anemia Dyslipidemia H/O tricuspid valve repair Hx of mitral valve repair Hypoxia (Acute) Volume overload (Acute) Atrial fibrillation with RVR (Acute) Hypertension Acute upper gastrointestinal bleeding (Acute) Anemia (Acute) Abnormal EKG (Acute) Black stool Medical History Paroxysmal A-fib History of anemia History of hyperlipidemia Social History Smoking Status: Never smoker Second Hand Exposure: No; Do You Dip or Chew Tobacco: No; Tobacco Cessation Education Requested by Patient: No Hx Alcohol Use: No Hx Substance Use: No Preferred Language: Beninese Communication Ability: Effective Bladder Blower Required: No Beliefs That Will Affect Care: None Current Living Situation: Family Current Living Situation Comment: Daughter and granddaughter Other Information That Helps Us Care for You: No Feels Safe at Home: Yes Safety Concerns: Feels Safe At This Time Assistive Devices: None Review of Systems Review of Systems: All systems reviewed & are unremarkable except as noted in HPI & below Physical Exam Physical Exam: General- adult Head- atraumatic Eyes- PERRL ENT- oropharynx clear Neck- supple, no JVD. Lungs- clear to auscultation no wheezing or crackles Heart- regular rhythm; systolic murmur in mitral area, no gallop. Abdomen- normal bowel sounds, soft, nontender, no distension Extremities- no pretibial edema, no erythema seen Neuro- alert, oriented PERRL, no facial palsy; no dysarthria; moves extremities. Results & Data Results & Data Vital Signs (Past 12 Hours) Vital Signs Temp Pulse Pulse Resp BP BP Pulse Ox 08/03/24 01:20 68 2 L 129/78 100 08/03/24 00:00 60 22 128/79 96 08/02/24 23:50 63 08/02/24 22:52 72 17 133/83 94 08/02/24 21:18 61 15 136/74 100 08/02/24 19:47 69 08/02/24 19:44 69 15 95 08/02/24 19:44 71 20 132/76 93 08/02/24 19:44 95 08/02/24 19:44 08/02/24 19:34 63 12 119/74 100 08/02/24 19:28 36.6 C 78 24 146/80 H 95 O2 Del Method O2 Flow Rate 08/03/24 01:20 Room Air 08/03/24 00:00 Room Air 08/02/24 23:50 08/02/24 22:52 Room Air 08/02/24 21:18 Nasal Cannula 2 08/02/24 19:47 08/02/24 19:44 Room Air 08/02/24 19:44 Room Air 08/02/24 19:44 Room Air 08/02/24 19:44 Room Air 08/02/24 19:34 Nasal Cannula 2 08/02/24 19:28 Room Air Diagnostic Findings Laboratory Results WBC 8.13 K/ul (4.8-10.8) 08/02/24 20:01 RBC 3.49 M/uL (4.20-5.40) L 08/02/24 20:01 Hgb 10.7 g/dl (12.0-16.0) L 08/02/24 20:01 Hct 31.9 % (37.0-47.0) L 08/02/24 20:01 MCV 91.4 fL (80.0-100.0) 08/02/24 20:01 MCH 30.7 pg (25.0-34.0) 08/02/24 20:01 MCHC 33.5 g/dL (32.0-36.0) 08/02/24 20:01 RDW Std Deviation 43.3 fL (36.4-46.3) 08/02/24 20:01 RDW Coeff of Nalini 13.1 % (11.5-14.5) 08/02/24 20:01 Plt Count 191 K/uL (130-400) 08/02/24 20:01 MPV 10.1 fL (9.4-12.4) 08/02/24 20:01 Immature Gran % (Auto) 0.6 % 08/02/24 20:01 Neut % (Auto) 67.9 % 08/02/24 20:01 Lymph % (Auto) 21.0 % 08/02/24 20:01 [place] % (Auto) 7.9 % 08/02/24 20:01 Eos % (Auto) 2.1 % 08/02/24 20:01 Baso % (Auto) 0.5 % 08/02/24 20:01 Neut # (Auto) 5.52 K/uL (1.40-6.50) 08/02/24 20:01 Lymph # (Auto) 1.71 K/uL (1.20-3.40) 08/02/24 20:01 [place] # (Auto) 0.64 K/uL (0.11-0.59) H 08/02/24 20:01 Eos # (Auto) 0.17 K/uL (0.00-0.50) 08/02/24 20:01 Baso # (Auto) 0.04 K/uL (0.00-0.20) 08/02/24 20:01 Immature Gran # (Auto) 0.05 K/uL (0.01-0.20) 08/02/24 20:01 PT 11.5 Seconds (9.0-12.0) 08/02/24 20:01 INR 1.1 (0.9-1.1) 08/02/24 20:01 VBG pH 7.35 (7.36-7.41) L 08/02/24 20:04 VBG pCO2 44 mmHg (38-50) 08/02/24 20:04 VBG pO2 49 mmHg 08/02/24 20:04 VBG HCO3 24 mmol/L 08/02/24 20:04 VBG O2 Saturation 77.9 % 08/02/24 20:04 VBG Base Excess -1.5 mEq/L 08/02/24 20:04 Sodium 128 mmol/L (136-145) L 08/02/24 20:01 Potassium 4.1 mmol/L (3.5-5.1) 08/02/24 20: Chloride 93 mmol/L (98-107) L 08/02/24 20:01 Carbon Dioxide 25 mmol/L (21-32) 08/02/24 20:01 Anion Gap 10 (3-11) 08/02/24 20:01 BUN 9 mg/dl (6-23) 08/02/24 20:01 Creatinine 0.67 mg/dl (0.6-1.2) 08/02/24 20:01 Est Cr Clr Drug Dosing 64.6 ml/min 08/02/24 20:01 Est GFR ( Amer) 101.1 ml/min 08/02/24 20:01 Est GFR (Non-Af Amer) 87.2 ml/min 08/02/24 20:01 BUN/Creatinine Ratio 13.4 (10-20) 08/02/24 20:01 Glucose 133 mg/dl (70-99(Fasting)) H 08/02/24 20:01 Calcium 9.6 mg/dl (8.6-10.3) 08/02/24 20: Magnesium 1.9 mg/dl (1.7-2.4) 08/02/24 20:01 Total Bilirubin 0.3 mg/dl (0.2-1.0) 08/02/24 20:01 AST 18 U/L (13-39) 08/02/24 20:01 ALT 11 U/L (7-52) 08/02/24 20:01 Alkaline Phosphatase 76 U/L (34-104) 08/02/24 20:01 Troponin I High Sens 8.3 pg/ml (0-14) 08/02/24 20: B-Natriuretic Peptide 1264 pg/ml (0-100) H 08/02/24 20:01 Total Protein 8.8 gm/dl (6.0-8.3) H 08/02/24 20:01 Albumin 3.7 gm/dl (3.4-5.0) 08/02/24 20: Globulin 5.1 gm/dl (2.5-4.0) H 08/02/24 20: Albumin/Globulin Ratio 0.7 (0.9-2) L 08/02/24 20: Urine Color Yellow 08/02/24:32 Urine Appearance Clear (Clear) 08/02/24:32 Urine pH 5.5 (4.5-7.5) 08/02/24 20:32 Ur Specific Gypsum 1.007 (1.000-1.030) 08/02/24 20:32 Urine Protein Negative (Negative) 08/02/24 20:32 Urine Glucose (UA) Negative (Negative) 08/02/24 20:32 Urine Ketones Negative (Negative) 08/02/24 20:32 Urine Blood Negative (Negative) 08/02/24 20:32 Urine Nitrite Negative (Negative) 08/02/24 20:32 Urine Bilirubin Negative (Negative) 08/02/24 20:32 Urine Urobilinogen Negative (Negative) 08/02/24 20:32 Ur Leukocyte Esterase Trace (Negative) H 08/02/24 20:32 Urine WBC (Auto) 0-5 /hpf (0-5) 08/02/24 20:32 Urine RBC (Auto) 0-2 /hpf (0-2) 08/02/24 20:32 U Hyaline Cast (Auto) 0-2 /lpf (0-2) 08/02/24 20:32 U Epithel Cells (Auto) 0-2 /hpf (0-2) 08/02/24 20:32 Urine Bacteria (Auto) None Seen (None Seen) 08/02/24 20:32 Adenovirus (PCR) Not Detected (NotDetected) 08/02/24 19:41 B. pertussis DNA (PCR) Not Detected (NotDetected) 08/02/24 19:41 B.parapertussis DNA PCR Not Detected (NotDetected) 08/02/24 19:41 C. pneumoniae DNA (PCR) Not Detected (NotDetected) 08/02/24 19:41 Coronavirus OC43 (PCR) Not Detected (NotDetected) 08/02/24 19:41 Coronavirus HKU1 (PCR) Not Detected (NotDetected) 08/02/24 19:41 Coronavirus 229E (PCR) Not Detected (NotDetected) 08/02/24 19:41 SARS-CoV-2 (PCR) Not Detected (NotDetected) 08/02/24 19:41 Coronavirus NL63 (PCR) Not Detected (NotDetected) 08/02/24 19:41 Human Metapneumovir PCR Not Detected (NotDetected) 08/02/24 19:41 Influenza Type A (PCR) Not Detected (NotDetected) 08/02/24 19:41 Influenza Type B (PCR) Not Detected (NotDetected) 08/02/24 19:41 M. pneumoniae (PCR) Not Detected (NotDetected) 08/02/24 19:41 Parainfluenza 1 (PCR) Not Detected (NotDetected) 08/02/24 19:41 Parainfluenza 2 (PCR) Not Detected (NotDetected) 08/02/24 19:41 Parainfluenza 3 (PCR) Not Detected (NotDetected) 08/02/24 19:41 Parainfluenza 4 (PCR) Not Detected (NotDetected) 08/02/24 19:41 RSV (PCR) Not Detected (NotDetected) 08/02/24 19:41 Entero/Rhino (PCR) Not Detected (NotDetected) 08/02/24 19:41 Impressions Chest CTA 08/02/24 21:56 Exam(s): CTA CHEST IV Amt: 118 ML OPTIRAY 320 EXAM: CT Angiography Chest With Intravenous Contrast CLINICAL HISTORY: PE. TECHNIQUE: Axial computed tomographic angiography images of the chest with intravenous contrast. MIPS images were created and reviewed. CTDI is 11 mGy and DLP is 339.2 mGy-cm. Automated exposure control was utilized for the study. A dose lowering technique was utilized adhering to the principles of ALARA. MIP reconstructed images were created and reviewed. COMPARISON: CTA chest 07/15/2024. FINDINGS: Pulmonary arteries: There is dilation of the pulmonary arteries. No pulmonary embolus. Aorta: There is ectasia of the ascending aorta measuring 3.9 cm. No thoracic aortic aneurysm. Lungs: Interseptal thickening is concerning for pulmonary edema. Additional airspace opacities of the right lower lobe is concerning for superimposed atypical infection and/or aspiration. Pleural space: Trace bilateral pleural effusions. No pneumothorax. Heart: Cardiomegaly. No significant pericardial effusion. No evidence of RV dysfunction. Mediastinum: Unremarkable. Thyroid: There is a partially calcified 2.4 cm right thyroid nodule. Bones/joints: There are degenerative changes of the spine. No acute fracture. No dislocation. Soft tissues: Unremarkable. Lymph nodes: Mediastinal lymphadenopathy measures up to 0.9 cm. IMPRESSION: 1. No pulmonary embolus. 2. There is dilation of the pulmonary arteries. This is concerning for pulmonary artery hypertension. 3. There is ectasia of the ascending aorta measuring 3.9 cm. 4. Interseptal thickening is concerning for pulmonary edema. 5. Additional airspace opacities of the right lower lobe is concerning for superimposed atypical infection and/or aspiration. 6. Trace bilateral pleural effusions. 7. There is a partially calcified 2.4 cm right thyroid nodule. Recommend further evaluation with dedicated thyroid ultrasound on a nonemergent basis. 8. Cardiomegaly. 9. Mediastinal lymphadenopathy measures up to 0.9 cm. This could be infectious, inflammatory or neoplastic. Electronically signed by: Dinah Roland MD 08/02/24 23:40 PM ECG Additional Comments: ECG. Normal sinus rhythm with rate of 76. Nonspecific ST and T wave abnormalities. QTc 495 Code Status & VTE Plan VTE Prophylaxis Plan VTE Prophylaxis will be ordered: Yes
[2024-08-03] MEDS ORDERED: POLYETHYLENE (MIRALAX) 17 GM PACK PO PRN (02:51)
[2024-08-03] MEDS ORDERED: NITROGLYCERIN SL 0.4 MG/TAB TAB SL PRN (02:51)
[2024-08-03] MEDS ORDERED: ACETAMINOPHEN 325 MG TAB PO PRN (02:51)
[2024-08-03] MEDS: AMOXICILLIN/CLAVULANATE 875 MG TAB PO SCH (03:57)
[2024-08-03] MEDS: AMOXICILLIN/CLAVULANATE SUSP 400/57 MG 5 ML BTL PO SCH (04:35)
[2024-08-03] MEDS: DOXYCYCLINE HYCLATE 100 MG CAP PO SCH (04:35)
[2024-08-03] MEDS ORDERED: Nursing to Pharmacy Communication SCH (04:45)
[2024-08-03 06:44] LABS: Basophils # (auto) 0.03 K/uL (0.00-0.20); Basophils % (auto) 0.5 %; Eosinophils # (auto) 0.07 K/uL (0.00-0.50); Eosinophils % (auto) 1.2 %; Hematocrit (blood only) 29.9 % (37.0-47.0); Hemoglobin 10.3 g/dl (12.0-16.0); Immature Granulocytes # (auto) 0.03 K/uL (0.01-0.20); Immature Granulocytes % (auto) 0.5 %; Lymphocytes # (auto) 1.16 K/uL (1.20-3.40); Lymphocytes % (auto) 20.3 %; Mean Corpuscular Hemoglobin 30.8 pg (25.0-34.0); Mean Corpuscular Hgb Conc 34.4 g/dL (32.0-36.0); Mean Corpuscular Volume 89.5 fL (80.0-100.0); Mean Platelet Volume 10.3 fL (9.4-12.4); Monocytes # (auto) 0.48 K/uL (0.11-0.59); Monocytes % (auto) 8.4 %; Neutrophils # (auto) 3.94 K/uL (1.40-6.50); Neutrophils % (auto) 69.1 %; Platelet Count 180 K/uL (130-400); RDW Coefficient of Variation 12.9 % (11.5-14.5); RDW Standard Deviation 42.1 fL (36.4-46.3); Red Blood Count 3.34 M/uL (4.20-5.40); White Blood Count 5.71 K/ul (4.8-10.8)
[2024-08-03 06:59] LABS: BUN Creatinine Ratio 13.6 (10-20); Calcium 9.6 mg/dl (8.6-10.3); Creatinine Clr Calc Pharmacy 73.3 ml/min; Est GFR (African American) 105.4 ml/min; Est GFR (Non-African American) 90.9 ml/min; Magnesium 1.9 mg/dl (1.7-2.4); Potassium 3.6 mmol/L (3.5-5.1)
[2024-08-03 07:06] LABS: Troponin I High Sensitivity 11.3 pg/ml (0-14)
--- NOTE | 2024-08-03 07:22 | XRay Report ---
XR chest 1V portable CLINICAL HISTORY: Dyspnea. COMPARISON STUDY: Chest CT July 15, 2024. Chest radiograph July 17, 2024. FINDINGS: There are median sternotomy wires and a prosthetic mitral valve. Cardiomegaly is unchanged. There is mild interstitial thickening. No pneumothorax is present. There are trace bilateral pleural effusions. Linear densities favor atelectasis. There is no consolidation to suggest pneumonia. IMPRESSION: Cardiomegaly with mild interstitial pulmonary edema and trace bilateral pleural effusion s. ACT 112: Negative or not required by law. Electronically signed by: Tenzin Lopez M.D. 08/03/2024 7:21 AM
--- NOTE | 2024-08-03 08:46 | Cardiology Consultation ---
Date of Consultation August 03, 2024 Assessment & Plan (1) Acute hyponatremia: (2) Acute dyspnea: (3) Paroxysmal A-fib: Plan Assessment: 74 year old female admitted with acute dyspnea, question possible infectious process, known history of chronic diastolic HF, request for c ardiology evaluation Plan: 1. Hyponatremia: -Resolved. patient has been dealing with Electrolyte imbalance issues since previous hospitalization multifactorial given multiple disease processes, GI distress and recent HF exacerbation. Serum NA now normalized. -Serum K also at target. -Will resume diuretic therapy; however, we will discontinue Torsemide (previous home diuretic regimen) in favor of starting Furosemide 20mg PO Three times per week (Saturday, Saturday and Saturday). -Patient appears euvolemic on exam -CHF teaching. Encourage 64 oz water daily, 2000mg NA or less daily, daily we ights. -Goal serum K > 4.0 and Serum mag > 2.0. -continue Toprol xl as part of HF regimen. 2. Acute Dyspnea: -Patient is not showing evidence of volume overload upon exam and per review of recent imaging. -there has been question of possible acute infectious process/aspiration pneumonia. Patient is NPO for a swallowing study. Further management per primary team. -CTA chest negative for PE. -there is mention of a right 9th rib lytic lesion. This is going to be followed up outpatient with Heme/onc. -Electrolytes and renal function stable. Will resume diuretics with Furosemide 20mg 3 x per week (Saturday, Saturday and Saturday) -OP labs in one week. Orders placed in [employer] system. 3. Paroxysmal Atrial fibrillation: -Remains SR on telemetry with no acute events. -Remains on Eliquis 5mg PO twice daily with no bleeding concerns. -HgB remains stable in the setting of known chronic anemia. Case has been discussed with Dr. Gama. Further recommendations regarding plan of care as per his assessment. I spent a total of 40 minutes on the date of service in preparation, delivery, documentation of the care provided to the patient excluding any time spent in the performance of separately billed services. ROSA [facility] Cardiology [facility] Supervising Physician Co-Signing Physician Notes Patient was seen and personally examined. Full assessment and plan as outlined above. Care and management discussed with advanced provider and personally endorsed Outpatient and recent hospitalization records reviewed Complex 74-year-old female with valvular heart disease, paroxysmal atrial fibrillation, diastolic heart failure. Management complicated by hyponatremia and hyperkalemia Patient presented with acute dyspnea after hold of diuretic dosing and NGA inhibitor due to electrolyte abnormalities Recommendations as above. Exam not consistent with significant volume overload and patient responded very promptly to single dose of IV furosemide. Will reduce diuretic dosing from torsemide to furosemide 20 mg 3 days/week Continue to hold NGA inhibitor though may retrial at outpatient visit at lower dosing Continue metoprolol succinate and apixaban as previously ordered CHF instructions with fluid restriction to manage hyponatremia I spent a total of 30 minutes on the date of service in preparation, delivery, and documentation of the care provided to this patient, excluding any time spent in the performance of separately billed services. 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 Of note, Patient had recent hospitalization at [facility] 07/15-07/17/24 for acute CHF. since time of discharge, patient was initially hypokalemic and therefore discharged on potassium supplementation. Patient's daughter had reported poor appetite and diarrhea and therefore potassium supplementation was discontinued with encouragement of high potassium foods. Additional follow up labs on 07/31/24 showed a serum NA of 132 and Serum K of 5.2. Per Cardiology instructions, patient was to hold reduce intake of potassium rich foods, remain off of any oral potassium supplementation, hold Ramipril over the weekend as well as Torsemide. She was to have OP labs today 08/03/24, but due to feeling worsening shortness of breath came to the ED. EKG on admission demonstrates NSR, prolonged QTc 495ms. Rate 76 bpm. Unchanged from previous. Chest xray: IMPRESSION: Cardiomegaly with mild interstitial pulmonary edema and trace bilateral pleural effusions. CTA Chest: IMPRESSION: 1. No pulmonary embolus. 2. There is dilation of the pulmonary arteries. This is concerning for pulmonary artery hypertension. 3. There is ectasia of the ascending aorta measuring 3.9 cm. 4. Interseptal thickening is concerning for pulmonary edema. 5. Additional airspace opacities of the right lower lobe is concerning for superimposed atypical infection and/or aspiration. 6. Trace bilateral pleural effusions. 7. There is a partially calcified 2.4 cm right thyroid nodule. Recommend further evaluation with dedicated thyroid ultrasound on a nonemergent basis. 8. Cardiomegaly. 9. Mediastinal lymphadenopathy measures up to 0.9 cm. This could be infectious, inflammatory or neoplastic. Troponin negative x2 BNP 1264pg/ml Telemetry demonstrates SR with rates in the 60's. No acute events overnight. Upon seeing patient today she is sitting up in bed resting comfortably. Reports resolution of her dyspnea. No chest pain, pressure or palpitations, no near syncope/syncope or edema. Currently NPO for a swallowing study. Allergies Allergy/AdvReac Type Severity Reaction Status Date / Time pantoprazole Allergy Severe Gastrointestinal Verified 08/02/24 22:41 Upset prednisone AdvReac Severe Cramping Verified 08/02/24 22:41 of the Muscles Home Medications Medication Instructions Recorded Confirmed Type amlodipine 5 mg tablet 5 mg PO QPM 08/10/21 08/02/24 History calcium carbonate 600 mg-vitamin 1 cap PO QAM 08/10/21 08/02/24 History D3 12.5 mcg (500 unit) capsule (Calcium 600 with Vitamin D3) cyanocobalamin (vitamin B-12) 500 500 mcg PO QAM 08/10/21 08/02/24 History mcg tablet (Vitamin B-12) magnesium 100 mg tablet 100 mg PO QAM 08/10/21 08/02/24 History ferrous sulfate 325 mg (65 mg 325 mg PO QAM #30 tabs 08/13/21 08/02/24 Rx iron) tablet,delayed release aspirin 81 mg chewable tablet 81 mg PO QDB 07/15/24 08/02/24 History apixaban 5 mg tablet (Eliquis) 5 mg PO BID #60 tabs 07/17/24 08/02/24 Rx metoprolol succinate 25 mg 25 mg PO HS #0 tabs 07/17/24 08/02/24 Rx tablet,extended release 24 hr metoprolol succinate 50 mg 50 mg PO QAM #30 tabs 07/17/24 08/02/24 Rx tablet,extended release 24 hr Patient History Medical History Paroxysmal A-fib History of anemia History of hyperlipidemia Social History Smoking Status: Never smoker Second Hand Exposure: No; Do You Dip or Chew Tobacco: No; Tobacco Cessation Education Requested by Patient: No Hx Alcohol Use: No Hx Substance Use: No Preferred Language: Monegasque Communication Ability: Effective Ocean Biologist Required: No Beliefs That Will Affect Care: None Current Living Situation: Family Current Living Situation Comment: Daughter and granddaughter Other Information That Helps Us Care for You: No Feels Safe at Home: Yes Safety Concerns: Feels Safe At This Time Assistive Devices: None Review of Systems Review of Systems: All systems reviewed & are unremarkable except as noted in HPI & below Physical Exam Constitutional: + thin; no acute distress and not ill ap pearing Neck: normal visual inspection and trachea midline Respiratory: normal respiratory effort, lungs clear to auscultation + cough Cardiovascular: RRR, no murmur, no edema Heart Sounds: normal S1, normal S2 and + murmur (+II/ systolic) Vessels: dorsalis pedis pulses present; no JVD Extremities: no edema Skin: no rashes, warm and dry Psychiatric: A+Ox3, euthymic affect Results & Data Vital Signs (Past 12 Hours) Vital Signs Temp Pulse Pulse Resp BP BP Pulse Ox 08/03/24 04:00 08/03/24 03:10 36.7 C 69 18 143/57 H 97 08/03/24 02:51 08/03/24 02:44 68 08/03/24 02:23 60 22 106/63 96 08/03/24 01:20 68 2 L 129/78 100 08/03/24 00:00 60 22 128/79 96 08/02/24 23:50 63 08/02/24 22:52 72 17 133/83 94 08/02/24 21:18 61 15 136/74 100 Pulse Ox O2 Del Method O2 Del Method O2 Flow Rate 08/03/24 04:00 Room Air 08/03/24 03:10 Room Air 08/03/24 02:51 97 Room Air 08/03/24 02:44 08/03/24 02:23 Room Air 08/03/24 01:20 Room Air 08/03/24 00:00 Room Air 08/02/24 23:50 08/02/24 22:52 Room Air 08/02/24 21:18 Nasal Cannula 2 Laboratory Results Cardiac Enzymes 08/02/24 08/03/24 Range/Units 20:01 06:22 AST 18 (13-39) U/L Troponin I High Sens 8.3 11.3 (0-14) pg/ml B-Natriuretic Peptide 1264 H (0-100) pg/ml Coagulation 08/02/24 Range/Units 20:01 PT 11.5 (9.0-12.0) Seconds B-Natriuretic Peptide 1264 H (0-100) pg/ml CBC 08/02/24 08/03/24 Range/Units 20:01 06:22 WBC 8.13 5.71 (4.8-10.8) K/ul RBC 3.49 L 3.34 L (4.20-5.40) M/uL Hgb 10.7 L 10.3 L (12.0-16.0) g/dl Hct 31.9 L 29.9 L (37.0-47.0) % Plt Count 191 180 (130-400) K/uL Neut # (Auto) 5.52 3.94 (1.40-6.50) K/uL Lymph # (Auto) 1.71 1.16 L (1.20-3.40) K/uL Bath # (Auto) 0.64 H 0.48 (0.11-0.59) K/uL Eos # (Auto) 0.17 0.07 (0.00-0.50) K/uL Baso # (Auto) 0.04 0.03 (0.00-0.20) K/uL Comprehensive Metabolic Panel 08/02/24 08/03/24 Range/Units 20:01 06:22 Sodium 128 L 135 L (136-145) mmol/L Potassium 4.1 3.6 (3.5-5.1) mmol/L Chloride 93 L 98 (98-107) mmol/L Carbon Dioxide 25 27 (21-32) mmol/L BUN 9 8 (6-23) mg/dl Creatinine 0.67 0.59 L (0.6-1.2) mg/dl Glucose 133 H 88 (70-99(Fasting)) mg/dl Calcium 9.6 9.6 (8.6-10.3) mg/dl AST 18 (13-39) U/L ALT 11 (7-52) U/L Alkaline Phosphatase 76 (34-104) U/L Total Protein 8.8 H (6.0-8.3) gm/dl Albumin 3.7 (3.4-5.0) gm/dl Intake and Output 08/02/24 08/03/24 08/03/24 22:59 06:59 14:59 Output Total 675 / 1775 1100 / 1775 Balance -675 / -1775 -1100 / -1775 Output: Urine 675 / 1775 1100 / 1775 Other: Weight 62.2 kg 60.1 kg Weight Measurement Method Chair Scale Built in [facility] Diagnostic Findings Echocardiogram 07/16/24 LVEF 60-65% mild concentric LVH left atrium severely dilated moderate to severe mitral regurgitation annuloplasty ring is noted in the mitral position trace TR PASP 46mmHg
[2024-08-03] MEDS: APIXABAN 5 MG TABLET PO SCH (08:50)
[2024-08-03] MEDS: CALCIUM 600MG + VIT D 400 IU TAB PO SCH (08:50)
[2024-08-03] MEDS: CYANOCOBALAMIN (B-12) 500 MCG TABLET PO SCH (08:51)
[2024-08-03] MEDS: METOPROLOL SUCC 50MG EXT REL TAB PO SCH (08:51)
[2024-08-03] MEDS: ASPIRIN 81 MG CHEW PO SCH (08:51)
[2024-08-03] MEDS: FERROUS SULFATE 325 MG TAB PO SCH (08:51)
[2024-08-03] MEDS ORDERED: NON-FORMULARY MEDICATION (Magnesium 100 mg Tablet) PO SCH (09:00)
[2024-08-03] MEDS: FUROSEMIDE 20 MG TAB PO SCH (12:43)
--- NOTE | 2024-08-03 12:55 | Electrocardiogram Report ---
Test Reason : Blood Pressure : */* mmHG Vent. Rate : 76 BPM Atrial Rate : 76 BPM P-R Int : 208 ms QRS Dur : 96 ms QT Int : 440 ms P-R-T Axes : 78 46 24 degrees QTcB Int : 495 ms Normal sinus rhythm Nonspecific ST and T wave abnormality Prolonged QT Abnormal ECG When compared with ECG of 15-Jul-2024 15:22, Sinus rhythm has replaced Atrial fibrillation Inverted T waves have replaced nonspecific T wave abnormality in Anterior leads Confirmed by Binh Young ([id number]) on 08/03/2024 12:54:38 PM Referred By: Confirmed By: Binh Young
--- NOTE | 2024-08-03 13:01 | Hospitalist Progress Note ---
Date of Service August 03, 2024 Assessment & Plan (1) Acute heart failure with preserved ejection fraction: Plan: 74 yo F w/ PMH of myxomatous mitral valve disease, severe MR s/p MV repair, tricuspid valve repair, bilateral Maze procedure and left atrial appendage ligation on 11/07/2017, moderate to severe residual mitral regurgitation, paroxysmal atrial fibrillation s/p left atrial appendage ligation, GI bleed, HTN, statin intolerance, history of prolonged QT , osteoporosis, HLD, recent finding of lytic lesion on bone x-ray and abnormal electrophoresis plan for hematology follow-up as per daughter comes in because of sudden onset of shortness of breath x since evening on presentation day. Patient did take a dose of diuretics before coming to the hospital. Patient was recently hospitalized for A-fib RVR and acute on chronic diastolic heart failure, was discharged on torsemide and potassium.Patient was having a lot of bloating/diarrhea/poor appetite while on potassium supplement, coordinated with cardiology office, patient was advised to stop potassium and increase potassium containing food. She is being managed for the following: Shortness of breath Most likely acute heart failure with preserved ejection fraction Possible aspiration/atypical pneumonia: noted on the CAT scan. No PE Patient took Lasix 40 mg p.o. at home and symptoms improved in the ED. Today patient with no crackles on exam, on room air, feels no shortness of breath. Cardiology evaluated, furosemide 20 mg 3 days a week, hold NGA inhibitor [plan for retrial as outpatient], continue with metoprolol succinate and Eliquis as previously ordered. Discussed with speech therapy, noted throat clearing after swallowing water. Further study tomorrow. Continue with Augmentin 08/03 and doxycycline. Will observe 1 more day here to make sure patient is able to tolerate antibiotic And also will have further speech eval tomorrow. Hyponatremia: Sodium 128. Hypervolemic hyponatremia. 135 today, improved. Low-sodium diet. Other chronic medical conditions: Continue with/resume home meds as and when able. A-fib: On metoprolol and Eliquis Hypertension: On amlodipine, metoprolol. Ramipril and torsemide held recently as OP. Monitor. Chronic anemia: Hemoglobin 10.7 around baseline. On iron supplement and vitamin B12 Ascending aortic aneurysm, Ectasia of ascending aorta: ny f/u w/ cardio as OP. History of myxomatous mitral valve disease/Severe mitral regurgitation s/p mitral repair, tricuspid valve repair, bilateral maze procedure and left atrial appendage ligation: Residual moderate to severe mitral regurgitation. Follow-up cardio as prior. Right ninth rib lytic lesion Abnormal SPEP and protein electrophoresis on recent labs as outpatient Seems patient does not want any further follow-up or treatment but daughter says she is going to follow-up with hematology/oncology Right thyroid nodule: 2.4cm right thyroid nodule, thyroid US as OP. DVT prophylaxis: On Eliquis Disposition: Telemetry Full code. Admission and Anticipated Discharge Date Admission Date: August 03, 2024 Subjective patient was seen and examined at bedside. Patient was sitting up in bed, on room air, NAD, reports feeling better. Patient reports improvement in her shortness of breath, denies fever/cough/sore throat/chest pain. patient having indigestion/belching. Physical Exam Physical Exam: General- adult Head- atraumatic Eyes- PERRL ENT- oropharynx clear Neck- supple, no JVD. Lungs- clear to auscultation no wheezing or crackles Heart- regular rhythm; systolic murmur in mitral area, no gallop. Abdomen- normal bowel sounds, soft, nontender, no distension Extremities- no pretibial edema, no erythema seen Neuro- alert, oriented PERRL, no facial palsy; no dysarthria; moves extremities. Results & Data Results & Data Vital Signs (Past 12 Hours) Vital Signs Temp Pulse Pulse Resp BP BP Pulse Ox 08/03/24 12:00 36.6 C 70 17 117/73 96 08/03/24 08:33 36.7 C 65 17 120/79 97 08/03/24 04:00 08/03/24 03:10 36.7 C 69 18 143/57 H 97 08/03/24 02:51 08/03/24 02:44 68 08/03/24 02:23 60 22 106/63 96 08/03/24 01:20 68 2 L 129/78 100 Pulse Ox O2 Del Method O2 Del Method 08/03/24 12:00 Room Air 08/03/24 08:33 Room Air 08/03/24 04:00 Room Air 08/03/24 03:10 Room Air 08/03/24 02:51 97 Room Air 08/03/24 02:44 08/03/24 02:23 Room Air 08/03/24 01:20 Room Air
[2024-08-03] MEDS: ADVANCED PROBIOTIC 625 MG CAPSULE PO SCH (13:21)
[2024-08-03] MEDS ORDERED: SIMETHICONE 80 MG CHEW PO PRN (20:11)
[2024-08-03] MEDS: FAMOTIDINE 20MG IV PUSH 20 MG/5 ML SYR IV STA (20:39)
[2024-08-03] MEDS: MELATONIN 3 MG TAB PO SCH (21:24)
[2024-08-03] MEDS: amLODIPine BESYLATE 5 MG TAB PO SCH (21:24)
[2024-08-03] MEDS: METOPROLOL SUCC 25MG EXT REL TAB PO SCH (21:25)
[2024-08-03 23:11] VITALS: PULSE 65
[2024-08-04 03:36] VITALS: BP 116/72; RESP 16; TEMP 97.5; O2SAT 100
[2024-08-04 08:08] LABS: Hematocrit (blood only) 29.6 % (37.0-47.0); Hemoglobin 10.2 g/dl (12.0-16.0); Mean Corpuscular Hemoglobin 30.9 pg (25.0-34.0); Mean Corpuscular Hgb Conc 34.5 g/dL (32.0-36.0); Mean Corpuscular Volume 89.7 fL (80.0-100.0); Mean Platelet Volume 10.5 fL (9.4-12.4); Platelet Count 178 K/uL (130-400); RDW Coefficient of Variation 13.1 % (11.5-14.5); White Blood Count 4.84 K/ul (4.8-10.8)
[2024-08-04 08:27] LABS: BUN Creatinine Ratio 11.3 (10-20); Calcium 9.9 mg/dl (8.6-10.3); Creatinine Clr Calc Pharmacy 69.8 ml/min; Est GFR (African American) 103.7 ml/min; Est GFR (Non-African American) 89.5 ml/min; Magnesium 1.9 mg/dl (1.7-2.4); Phosphorus 3.8 mg/dl (2.5-4.9); Potassium 4.4 mmol/L (3.5-5.1)
--- NOTE | 2024-08-04 10:33 | Cardiology Progress Note ---
Date of Service August 04, 2024 Assessment & Plan (1) Acute hyponatremia: (2) Acute dyspnea: (3) Paroxysmal A-fib: Plan Assessment: 74 year old female admitted with acute dyspnea, question possible infectious process, known history of chronic diastolic HF, request for [facility] evaluation Plan: 1. Hyponatremia: -Resolved. patient has been dealing with Electrolyte imbalance issues since previous hospitalization multifactorial given multiple disease processes, GI dis tress and recent HF exacerbation. Serum NA now normalized. -Serum K also at target. -Will resume diuretic therapy; however, we will discontinue Torsemide (previous home diuretic regimen) in favor of starting Furosemide 20mg PO Three times per week (Saturday, Saturday and Saturday). -Patient appears euvolemic on exam -CHF teaching. Encourage 64 oz water daily, 2000mg NA or less daily, daily weights. -Goal serum K > 4.0 and Serum mag > 2.0. -continue Toprol xl as part of HF regimen. 2. Acute Dyspnea: -Patient is not showing evidence of volume overload upon exam and per review of recent imaging. -there has been question of possible acute infectious process/aspiration pneumonia. Patient is NPO for a swallowing study. Further management per primary team. -CTA chest negative for PE. -there is mention of a right 9th rib lytic lesion. This is going to be followed up outpatient with Heme/onc. -Electrolytes and renal function stable. Will resume diuretics with Furosemide 20mg 3 x per week (Saturday, Saturday and Saturday) -OP labs in one week. Orders placed in [facility] system. 3. Paroxysmal Atrial fibrillation: -Remains SR on telemetry with no acute events. -Remains on Eliquis 5mg PO twice daily with no bleeding concerns. -HgB remains stable in the setting of known chronic anemia. 08/04/2024 Clinically stable this morning heart rate blood pressure well-controlled Hyponatremia improved multifactorial etiology. Plan as outlined continue to hold spironolactone and ramipril. May require NGA inhibitor as outpatient possible addition of spironolactone Would continue furosemide at 20 mg 3 days/week Fluid restriction with CHF instructions discussed Recommend follow-up cardiology 2 to 4 weeks BMP 1 week Admission and Anticipated Discharge Date Admission Date: August 03, 2024 Subjective Patient was seen and examined, chart medications laboratory studies reviewed Feels well this morning, no difficulty overnight slept well after her melatonin dose. No chest pains or shortness of breath. No edema. Sodium 133 on laboratory testing today No hypertension Physical Exam Constitutional: + thin; no acute distress Eyes: PERRL, conjunctivae normal, anicteric sclerae Neck: trachea midline, no thyromegaly Cardiovascular: RRR, no murmur, no edema Heart Sounds: normal S1, normal S2 and + murmur (+II/ systolic) Vessels: dorsalis pedis pulses present; no JVD Extremities: no edema Gastrointestinal (Abdomen): normal bowel sounds, soft, nontender, no hepatosplenomegaly Skin: no rashes, warm and dry Results & Data Vital Signs (Past 12 Hours) Vital Signs Temp Pulse Resp BP Pulse Ox O2 Del Method O2 Del Method 08/04/24 03:33 36.4 C L 16 116/72 100 Room Air 08/04/24 02:51 Room Air 08/03/24 23:10 36.7 C 65 14 130/80 99 Room Air Laboratory Results Laboratory Results - last 24 hr 08/04/24 07:29 WBC 4.84 RBC 3.30 L Hgb 10.2 L Hct 29.6 L MCV 89.7 MCH 30.9 MCHC 34.5 RDW Std Deviation 43.0 RDW Coeff of Nalini 13.1 Plt Count 178 MPV 10.5 Sodium 133 L Potassium 4.4 D Chloride 97 L Carbon Dioxide 31 Anion Gap 5 BUN 7 Creatinine 0.62 Est Cr Clr Drug Dosing 69.8 Est GFR ( Amer) 103.7 Est GFR (Non-Af Amer) 89.5 BUN/Creatinine Ratio 11.3 Glucose 88 Calcium 9.9 Phosphorus 3.8 Magnesium 1.9
--- NOTE | 2024-08-04 11:22 | Fluoroscopy Report ---
FL video swallow CLINICAL HISTORY: assess for aspiration TECHNIQUE: Video fluoroscopy of the pharyngeal region was performed as barium mixtures of varying con sistencies were administered to the patient by the speech pathologist. A formal esophagram was not pe rformed. Comparison: Comparison is made to CTA chest 08/02/2024 FINDINGS: Total fluoroscopy time: 2.5 minutes. Radiation dose: 8.1 mGy. The patient swallowed the different barium consistencies without difficulty. There was no laryngeal v estibular penetration or barbara tracheal aspiration. Retention in the distal esophagus is seen. IMPRESSION: No evidence of aspiration. Please see the speech pathology report for further details. ACT 112: Negative or not required by law. Electronically signed by: Juan Renae M.D. 08/04/2024 11:21 AM
[2024-08-04] MEDS: FAMOTIDINE 20 MG TAB PO SCH (11:57)
--- NOTE | 2024-08-04 12:29 | Discharge Summary ---
Date of Service August 04, 2024 Admission HPI Per Admitting Provider 74-year-old female with past medical history significant for myxomatous mitral valve disease, severe mitral regurgitation status post mitral valve repair, tricuspid valve repair, bilateral Maze procedure and left atrial appendage ligation on 11/07/2017, moderate to severe residual mitral regurgitation, history of paroxysmal atrial fibrillation status post left atrial appendage ligation, history of GI bleed, hypertension, statin intolerance, history of prolonged QT , hypertension, osteoporosis, hyperlipidemia, recent finding of lytic lesion bone x-ray and abnormal electrophoresis plan for hematology follow-up as per daughter comes in because of sudden onset of shortness of breath today evening. Patient was recently in the hospital for rapid A-fib and acute heart failure with preserved ejection fraction,metoprolol dose adjusted and was discharged on torsemide and potassium supplements on July 17. After discharge patient was having a lot of bloating diarrhea and poor appetite from potassium supplements and texted cardiology and was advised to stop potassium and increase potassium containing food with follow-up labs. Her last dose of potassium was on Saturday. Her outpatient labs on 07/29/2024 showed sodium of 132 and potassium of 5.2 and was advised to hold torsemide and ramipril over the weekend and repeat labs on Saturday. But because shortness of breath today evening she came to the ER. She took 40 mg of p.o. Lasix before coming to the ER. Patient currently resting comfortably and hemodynamically stable. Saturating okay on room air. Denies any cough. Denies any aspiration. No fevers . No chest pain. No headache. No runny nose or sore throat. Appetite has been poor. Currently no nausea. No abdominal discomfort. Currently no diarrhea. Micturating okay. Ambulating okay. Daughter is in the room helped with H&P. Patient is also able to give her history. Past medical history. As mentioned above Past surgical history. Colonoscopy with biopsy. EGD. Cataracts. Repair of tricuspid fall. Social history. . No smoking. No alcohol use. No drug use. Family history. Father had heart attack age of 63. Sister had heart attack. Mother had stroke at age of 52. Admission Exam Per Admitting Provider General- adult Head- atraumatic Eyes- PERRL ENT- oropharynx clear Neck- supple, no JVD. Lungs- clear to auscultation no wheezing or crackles Heart- regular rhythm; systolic murmur in mitral area, no gallop. Abdomen- normal bowel sounds, soft, nontender, no distension Extremities- no pretibial edema, no erythema seen Neuro- alert, oriented PERRL, no facial palsy; no dysarthria; moves extremities. Principal Diagnosis Acute heart failure with preserved ejection fraction Possible aspiration pneumonia/atypical pneumonia Hyponatremia secondary to poor p.o. 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 Lungs- clear to auscultation no wheezing or crackles Heart- regular rhythm; systolic murmur in mitral area, no gallop. Abdomen- normal bowel sounds, soft, nontender, no distension Extremities- no pretibial edema, no erythema seen Neuro- alert, oriented PERRL, no facial palsy; no dysarthria; moves extremities. Discharge Data Allergies Allergy/AdvReac Type Severity Reaction Status Date / Time pantoprazole Allergy Severe Gastrointestinal Verified 08/02/24 22:41 Upset prednisone AdvReac Severe Cramping Verified 08/02/24 22:41 of the Muscles Consultations 08/02/24 23:58 ED Decision to Admit Stat 08/03/24 08:00 Consult Cardiology Routine Ordered Studies 08/02/24 21:56 CT for pulmonary embolism PE [CT angio chest PE protocol] Stat 08/04/24 09:30 FL video swallow Routine Hospital Course (1) Acute heart failure with preserved ejection fraction: 74 yo F w/ PMH of myxomatous mitral valve disease, severe MR s/p MV repair, tricuspid valve repair, bilateral Maze procedure and left atrial appendage ligation on 11/07/2017, moderate to severe residual mitral regurgitation, paroxysmal atrial fibrillation s/p left atrial appendage ligation, GI bleed, HTN, statin intolerance, history of prolonged QT , osteoporosis, HLD, recent finding of lytic lesion on bone x-ray and abnormal electrophoresis plan for hematology follow-up as per daughter comes in because of sudden onset of shortness of breath x since evening on presentation day. Patient did take a dose of diuretics before coming to the hospital. Patient was recently hospitalized for A-fib RVR and acute on chronic diastolic heart failure, was discharged on torsemide and potassium.Patient was having a lot of bloating/diarrhea/poor appetite while on potassium supplement, coordinated with cardiology office, patient was advised to stop potassium and increase potassium containing food. She was managed for the following: Shortness of breath Most likely acute heart failure with preserved ejection fraction Possible aspiration/atypical pneumonia: noted on the CAT scan. No PE Patient took Lasix 40 mg p.o. at home and symptoms improved in the ED. Today patient with no crackles on exam, on room air, feels no shortness of breath. Cardiology evaluated, furosemide 20 mg 3 days a week, hold NGA inhibitor [plan for retrial as outpatient], continue with metoprolol succinate and Eliquis as previously ordered. Appreciate a speech therapy evaluation. Continue with Augmentin 08/03 and doxycycline. Will observe 1 more day here to make sure patient is able to tolerate antibiotic And also will have further speech eval tomorrow. Hyponatremia: Sodium 128. Hypervolemic hyponatremia. 133 today, improved. Low-sodium diet. Increase protein content in diet. Likely gastritis: Patient with history of gastritis, followed GI in the past, did not tolerate pantoprazole. found relief with famotidine while in hospital. Will discharge on famotidine twice daily. Patient advised to follow-up with GI as an outpatient. She voiced understanding. Other chronic medical conditions: Continue with/resume home meds as and when able. A-fib: On metoprolol and Eliquis Hypertension: On amlodipine, metoprolol. Ramipril and torsemide held recently as OP. Monitor. Chronic anemia: Hemoglobin 10.7 around baseline. On iron supplement and vitamin B12 Ascending aortic aneurysm, Ectasia of ascending aorta: ny f/u w/ cardio as OP. History of myxomatous mitral valve disease/Severe mitral regurgitation s/p mitral repair, tricuspid valve repair, bilateral maze procedure and left atrial appendage ligation: Residual moderate to severe mitral regurgitation. Follow-up cardio as prior. Right ninth rib lytic lesion Abnormal SPEP and protein electrophoresis on recent labs as outpatient Seems patient does not want any further follow-up or treatment but daughter says she is going to follow-up with hematology/oncology Right thyroid nodule: 2.4cm right thyroid nodule, thyroid US as OP. DVT prophylaxis: On Eliquis Disposition: Telemetry Full code. Patient is being discharged to home with following instruction at the point of discharge: Follow-up with your primary care physician within a week time and likely you will need labs CBC/CMP/magnesium/phosphorus. You were evaluated by cardiology for acute on chronic heart failure, you will be discharged on Lasix 3 days a week. maintain fluid restriction of 1500 mL a day, maintain low-sodium diet and heart healthy diet. Follow-up with cardiology in 2 to 4 weeks time upon discharge. You were also managed for concern of possible aspiration/atypical pneumonia, you are being discharged on Augmentin and doxycycline to complete total of 7 days course. As discussed at the bedside, take doxycycline with about 8 ounces of water, stay upright for about half an hour after the medication, avoid sun exposure during therapy. For your possible acid peptic disease, you are being discharged on famotidine twice a day. As discussed at the bedside, you will benefit from following up with the GI doctor as an outpatient. Follow-up with GI doctor in 2 to 4 weeks time upon discharge. As discussed at the bedside, recommend that you follow-up with oncology for diagnosis of your ninth right rib lytic lesion. You are also noted to have right thyroid nodule, recommend that you get thyroid ultrasound as an outpatient. Coordinate with your PCP office to set up the test. Take your medications as prescribed. Please make sure that you are able to get your medications today by calling your pharmacy before you leave the hospital so that your treatment continuity is not broken. Home Health Attestation I certify that this patient is under my care and that I, or a physicians geriatric nursing assistant working with me, had a face to-face encounter that meets the home health [id number] encounter requirements with this patient. The encounter with the patient was in whole, or in part, for the following medical condition, which is the primary reason for home health care (list medical condition): I certify that, based on my findings, the following services are medically necessary home health services: My clinical findings support the need for the above services because: Further, I certify that my clinical findings support that this patient is homebound (i.e. absences from home require considerable and taxing effort and are for medical reasons or rastafari services or infrequently or of short duration when for other reasons) because: Certification for Home Health Services: Based on the above findings, I certify that this patient is confined to the home and needs intermittent halfway care, physical therapy and/or speech therapy or continues to need occupational therapy. The patient is under my care, and I have initiated the establishment of the plan of care. This patient will be followed by a physician who will periodically review the plan of care. Total Time Total Time Spent Total Time Spent (In Minutes): 45 Discharge Plan Discharge Items Patient Disposition: Home - Self-Care Reason For Visit: SOB, CHF, HYPONATREMIA Discharge Diagnosis: Acute heart failure with preserved ejection fraction Possible aspiration pneumonia/atypical pneumonia Hyponatremia secondary to poor p.o. 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 Right thyroid nodule Activity: Resume your previous activity Non-emergency contact: Primary Care Provider Call non-emergency contact if: you have any medication questions, your symptoms worsen and your temperature is above 101 Follow-up/Referrals: Zuleima Garcia MD [Primary Care Provider] - (Date & Time 08/12/2024 11:00 AM Provider Dayanna Solorzano MD Department General Internal Medicine [facility] ) Diet: Heart Healthy, Low Sodium (2gm) and Vegetarian (Lacto-Ovo) Addtl Attending Provider Instructions: Follow-up with your primary care physician within a week time and likely you will need labs CBC/CMP/magnesium/phosphorus. You were evaluated by cardiology for acute on chronic heart failure, you will be discharged on Lasix 3 days a week. maintain fluid restriction of 1500 mL a day, maintain low-sodium diet and heart healthy diet. Follow-up with cardiology in 2 to 4 weeks time upon discharge. You were also managed for concern of possible aspiration/atypical pneumonia, you are being discharged on Augmentin and doxycycline to complete total of 7 days course. As discussed at the bedside, take doxycycline with about 8 ounces of water, stay upright for about half an hour after the medication, avoid sun exposure during therapy. For your possible acid peptic disease, you are being discharged on famotidine tw ice a day. As discussed at the bedside, you will benefit from following up with the GI doctor as an outpatient. Follow-up with GI doctor in 2 to 4 weeks time upon discharge. As discussed at the bedside, recommend that you follow-up with oncology for diagnosis of your ninth right rib lytic lesion. You are also noted to have right thyroid nodule, recommend that you get thyroid ultrasound as an outpatient. Coordinate with your PCP office to set up the test. Take your medications as prescribed. Please make sure that you are able to get your medications today by calling your pharmacy before you leave the hospital so that your treatment continuity is not broken. Pending Studies at Discharge: No Stand-Alone Forms: My [facility], Smoking Cessation Medications and DC Order Prescriptions: New amoxicillin-pot clavulanate 875-125 mg tablet 1 tab PO BID 6 Days Qty: 12 0RF doxycycline hyclate 100 mg Capsule 100 mg PO BID 6 Days Qty: 12 0RF furosemide 20 mg Tablet 20 mg PO [id number]@[id number] Qty: 20 0RF famotidine 20 mg Tablet 20 mg PO BID Qty: 60 0RF Advanced Probiotic 625 mg (10 billion cell) Capsule 1 cap PO DAILY Qty: 30 0RF Continued cyanocobalamin (vitamin B-12) [Vitamin B-12] 500 mcg Tablet 500 mcg PO QAM magnesium 100 mg Tablet 100 mg PO QAM calcium carbonate-vitamin D3 [Calcium 600 with Vitamin D3] 600 mg(1,500mg) - 500 unit Capsule 1 cap PO QAM amlodipine 5 mg tablet 5 mg PO QPM ferrous sulfate 325 mg (65 mg iron) Tablet,Delayed Release (Dr/Ec) 325 mg PO QAM Qty: 30 1RF aspirin 81 mg tablet,chewable 81 mg PO QDB metoprolol succinate 50 mg Tablet Extended Release 24 Hr 50 mg PO QAM Qty: 30 1RF Eliquis 5 mg Tablet 5 mg PO BID Qty: 60 2RF metoprolol succinate 25 mg tablet extended release 24 hr 25 mg PO HS Qty: 0 0RF Discharge Orders: Discharge Order (Routine); Ordered 08/04/24 Ordered By: Pedro Coyne Admission Data Admit Date/Time: 08/03/24 01:32 Attending Provider: Pedro Coyne Admit Provider: Marlon Fuller Primary Care Provider: Zuleima Garcia Other Providers: Marlon Fuller; Jaya Gama
== END 2024-08-04 16:57 | disposition home or self-care (01) | DRG 291 ==
LOC: ED 19:26 → 4W 08-03 01:32

== ENCOUNTER 2025-02-12 13:12 | Inpatient (IN) ==
--- NOTE | 2025-02-12 14:03 | XRay Report ---
XR chest 1V portable CLINICAL HISTORY: weakness, sob, chf-avr COMPARISON STUDY: 08/02/2024 FINDINGS: There is cardiac valve repair. There is prominent cardiomegaly with mild pulmonary vascular congestion. There is interval dense opacity in the lower lungs with obscuration of the diaphragm and blunting of the costophrenic angles. No pneumothorax. IMPRESSION: CHF with bilateral pleural effusions and lung base consolidation. ACT 112: Negative or not required by law. Electronically signed by: Aldair Masterson M.D. 02/12/2025 2:02 PM
[2025-02-12 14:08] LABS: iSTAT Creatinine 1.6 mg/dl (0.6-1.3); iSTAT Hemoglobin 11.6 g/dl (12.0-16.0); iSTAT Ionized Calcium 1.08 mmol/l (1.12-1.32); iSTAT Potassium 4.8 mmol/L (3.3-5.0)
[2025-02-12 14:11] LABS: Basophils # (auto) 0.03 K/uL (0.00-0.20); Basophils % (auto) 0.3 %; Eosinophils # (auto) 0.12 K/uL (0.00-0.50); Eosinophils % (auto) 1.3 %; Hematocrit (blood only) 32.5 % (37.0-47.0); Hemoglobin 10.3 g/dl (12.0-16.0); Immature Granulocytes # (auto) 0.08 K/uL (0.01-0.20); Immature Granulocytes % (auto) 0.8 %; Lymphocytes # (auto) 0.52 K/uL (1.20-3.40); Lymphocytes % (auto) 5.4 %; Mean Corpuscular Hemoglobin 31.7 pg (25.0-34.0); Mean Corpuscular Hgb Conc 31.7 g/dL (32.0-36.0); Mean Platelet Volume 9.6 fL (9.4-12.4); Monocytes # (auto) 0.77 K/uL (0.11-0.59); Neutrophils # (auto) 8.07 K/uL (1.40-6.50); Neutrophils % (auto) 84.2 %; Platelet Count 194 K/uL (130-400); RDW Coefficient of Variation 18.1 % (11.5-14.5); RDW Standard Deviation 64.1 fL (36.4-46.3); Red Blood Count 3.25 M/uL (4.20-5.40); White Blood Count 9.59 K/ul (4.8-10.8)
[2025-02-12 14:32] LABS: Alanine Aminotransferase 10 U/L (7-52); Albumin Globulin Ratio 0.9 (0.9-2); Albumin Level 3.5 gm/dl (3.4-5.0); Alkaline Phosphatase 96 U/L (34-104); Anion Gap 4 (3-11); Aspartate Aminotransferase 30 U/L (13-39); BUN Creatinine Ratio 20.1 (10-20); Bilirubin,Total 0.8 mg/dl (0.2-1.0); Blood Urea Nitrogen 28 mg/dl (6-23); Carbon Dioxide 28 mmol/L (21-32); Chloride 98 mmol/L (98-107); Globulin 4.1 gm/dl (2.5-4.0); Glucose 161 mg/dl (70-99(Fasting)); Magnesium 2.1 mg/dl (1.7-2.4); Potassium 4.6 mmol/L (3.5-5.1); Sodium 130 mmol/L (136-145); Total Protein 7.6 gm/dl (6.0-8.3)
[2025-02-12 14:39] LABS: INR 1.1 (0.9-1.1); Prothrombin Time 11.6 Seconds (9.0-12.0)
[2025-02-12 14:40] LABS: Troponin I High Sensitivity 272.6 pg/ml (0-14)
[2025-02-12] MEDS: FUROSEMIDE INJ 20 MG/2 ML VIAL IV ONE ×2 (14:44→23:09)
[2025-02-12 14:46] LABS: Thyroid Stimulating Hormone 1.868 uIu/ml (0.300-4.500)
[2025-02-12 15:09] LABS: Appearance Urine Clear (Clear); Bacteria Urine Automated None Seen (None Seen); Bilirubin Urine Negative (Negative); Blood Urine 2+ (Negative); Color Urine Yellow; Epithelial Cell Urine Auto 0-2 /hpf (0-2); Glucose Urine UA Negative (Negative); Ketones Urine Negative (Negative); Leukocyte Esterase Urine Negative (Negative); Nitrite Urine Negative (Negative); Protein Urine 1+ (Negative); Specific Gravity Urine 1.008 (1.000-1.030); Urobilinogen Urine Negative (Negative); WBC Urine Automated 0-5 /hpf (0-5)
[2025-02-12] MEDS: ACETAMINOPHEN 500 MG TAB PO STA (16:37)
[2025-02-12] MEDS: HYDROmorphone INJ 0.5 MG/0.5 ML SYR IV STA (16:45)
--- NOTE | 2025-02-12 16:56 | History & Physical Report ---
Date of Service February 12, 2025 Assessment & Plan (1) Volume overload: (2) S/P mitral valve replacement: (3) Paroxysmal atrial fibrillation: (4) History of anemia: (5) History of hyperlipidemia: Plan: #Volume Overload Patient is 74 year old female with PMH myxomatous mitral valve disease, severe mitral regurgitation s/p mitral valve repair, tricuspid valve repair, biatrial Maze procedure and left atrial appendage ligation 11/07/2017, HTN, dyslipidemia, history of QT prolongation, possible history PAF s/p left atrial appendage ligation, history of GI bleed 2020, s/p mitral valve replacement presented to ER with c/o bleeding from chest tube site today as well as BLE edema and SOB x 1 day. S/P TMVR on 01/29/2025, following procedure had perivalvular leak and began having hemolysis requiring daily blood transfusions. Then underwent AVR/MVR on [address] House and also had atrial septal defect closed. Today in ER afebrile, noted to be tachycardic in low 100s, R: 26, BP 127/98, placed on oxygen 2.5 L with O2 sat of 100% BNP: 870 CXR: pleural effusions bilaterally per my interpretation ER physician had spoke to transfer center at [facility] and spoke to cardiothoracic surgery who recommended no current need for transfer if cardiology here is ok. ER physician spoke to cardiology, Dr Garber who felt patient could be diuresed here. IV lasix 20mg BID Obtain limited echo to assess the valve Monitor I&O's, daily weight Cardiology consult CBC, BMP, magnesium labs in a.m. #History PAF Anticoagulated on Eliquis Current Afib, rates low 100's History of recent post op junctional rhythm required pacing and was evaluated by EP and recommended avoidance of negative chronotropic medications. HRs improved and metoprolol was resumed Monitor on telemetry Continue metoprolol Continue Eliquis. Monitor for further bleeding #Elevated troponin Troponin: 261 -->272 Denies current CP Echo pending Trend troponin May be secondary to recent procedures, demand from afib Monitor on telemetry Anticoagulated on Eliquis Continue aspirin, metoprolol History statin intolerance. #Bleeding incision site from prior chest tube Currently chest incisions with dry dressings in place after dressing placed in ER. Possible was secondary to volume overload. Will monitor #Recent DOMENICA Today Cr: 1.39 (Creatinine peaked at 3.3 on 02/06/2025. Her diuretics were held. On discharge on 02/10/2025 creatinine of 1.8) Monitor renal functions #Anemia Recent required PRBC transfusions at [facility] Hgb: 10.3. Was 10 on discharge on 02/10/2025, had required PRBC transfusion at [facility]. Currently stable. Monitor H&H with repeat tonight DVT Prophylaxis Eliquis Admit PCU Full Code as per discussion with pt Follows with Dr Garcia for routine care Pt was seen and care coordinated with Dr Escalona. See addendum I spent a total of 79 minutes reviewing notes, outpatient records, labs, medication, coordinating, documenting and providing care for this patient excluding time spent in the performance of separately billed services and excluding time spent by another provider/QHP. History of Present Illness Chief Complaint: bleeding from chest tube site Primary Care Provider: Zuleima Garcia MD Patient is 74 year old female with PMH myxomatous mitral valve disease, severe mitral regurgitation s/p mitral valve repair, tricuspid valve repair, biatrial Maze procedure and left atrial appendage ligation 11/07/2017, HTN, dyslipidemia, history of QT prolongation, possible history PAF s/p left atrial appendage ligation, history of GI bleed 2020, s/p mitral valve replacement presented to ER with c/o bleeding from chest tube site today. Per chart review patient had hospitalization at [facility] 01/27/2025-02/10/2025 and had complicated hospital course. Underwent TMVR on 01/29/2025, following procedure had perivalvular leak and began having hemolysis requiring daily blood transfusions. Then underwent AVR/MVR on 02/02/[address] House and also had atrial septal defect closed. Post op developed a junctional rhythm required pacing. EP evaluated and recommended avoidance of negative chronotropic medications. Her metoprolol was ultimately resumed. He also developed thrombocytopenia and her subcu heparin and aspirin were held. Platelet levels improved and her aspirin and Eliquis was resumed. Patient also had DOMENICA and her diuretics were held. On discharge on 02/10/2025 creatinine of 1.8. Upon discharge her home diuretics were not resumed. States today noticed bleeding that soaked through 3 dressing changes from her right chest wall at site of prior chest tube. Daughter reports patient was previously was on Lasix 20mg BID prior to recent surgery. yesterday noticed BLE edema. Today with worsening BLE edema. Today feeling SOB. Has been having discomfort to chest since her cardiac surgery, worse at sternum region. She has been taking Tylenol for discomfort. was prescribed Tramadol but did not get it filled because she took it once in hospital and it made her "loopy". Since hospitalization has been feeling tired and generally weak. had speech evaluation during her recent hospitalization and was able to tolerate soft diet upon discharge. Patient reports needs to take pills with applesauce. Denies fever/chills, diaphoresis, N/V/D/C, METZ, dizziness, syncope, vision changes, neck pain, palpitations, cough, rhinorrhea, abdominal pain, paresthesias, rashes, urinary symptoms. Allergies Allergy/AdvReac Type Severity Reaction Status Date / Time famotidine AdvReac Severe Gastrointestinal Verified 02/12/25 16:07 Upset pantoprazole AdvReac Severe Gastrointestinal Verified 02/12/25 16:07 Upset prednisone AdvReac Severe Cramping Verified 02/12/25 16:07 of the Muscles [id number]-[id number] Reductase AdvReac Intermediate MUSCLE Verified 02/12/25 16:07 Inhibitor PAIN AND CRAMPING Home Medications Medication Instructions Recorded Confirmed Type cyanocobalamin (vitamin B-12) 500 500 mcg PO QAM 08/10/21 02/12/25 History mcg tablet (Vitamin B-12) ferrous sulfate 325 mg (65 mg 325 mg PO QAM #30 tabs 08/13/21 02/12/25 Rx iron) tablet,delayed release apixaban 5 mg tablet (Eliquis) 5 mg PO BID #60 tabs 07/17/24 02/12/25 Rx L.acidop,casei,lactis,rham-B.lact,phani 1 cap PO DAILY #30 caps 08/04/24 02/12/25 Rx 625 mg (10 billion cell) capsule (Advanced Probiotic) acetaminophen 325 mg tablet 325 mg PO HS PRN WITH TYLENOL PM 02/12/25 02/12/25 History (Tylenol) FOR SLEEP/PAIN acetaminophen 325 mg tablet 975 mg PO Q8H PRN Pain 02/12/25 02/12/25 History (Tylenol) aspirin 81 mg chewable tablet 81 mg PO DAILY 02/12/25 02/12/25 History calcium 600 mg-D3 800 unit-mag 40 1 tab PO DAILY 02/12/25 02/12/25 History gm-zsdh-aryx-ekaterina-boron chew tablet (Caltrate 600-D Plus Minerals) diphenhydramine 25 1 tab PO HS PRN SLEEP/PAIN 02/12/25 02/12/25 History mg-acetaminophen 500 mg tablet (Tylenol PM Extra Strength) famotidine 20 mg tablet 20 mg PO DAILY 02/12/25 02/12/25 History magnesium sulfate 100 mg capsule 100 mg PO QPM 02/12/25 02/12/25 History metoprolol succinate 25 mg 25 mg PO QAM 02/12/25 02/12/25 History tablet,extended release 24 hr vit no.133-ferrous 1 tab PO QAM 02/12/25 02/12/25 History fumarate 28 mg-folic acid 800 mcg tablet () Past Med/Surg History Problem List S/P mitral valve replacement Bilateral edema of lower extremity (Acute) Anemia (Acute) Acute CHF (congestive heart failure) (Acute) Hyperglycemia Chronic anemia Dyslipidemia Hypoxia (Acute) Atrial fibrillation with RVR (Acute) Paroxysmal A-fib Anemia (Acute) Hypertension Medical History History of pulmonary edema Osteoarthritis Hypertension History of upper gastrointestinal bleeding 2020, no issues since Anemia LAWRENCE (dyspnea on exertion) with climbing stairs Dyslipidemia Congestive heart disease Paroxysmal atrial fibrillation History of anemia History of hyperlipidemia Surgical History History of left atrial appendage closure History of bilateral cataract extraction History of inguinal hernia repair right History of tooth extraction History of mitral valve repair History of tricuspid valve repair 2017 done in [place] Social History Smoking Status: Never smoker Second Hand Exposure: No; Do You Dip or Chew Tobacco: No; Hx Alcohol Use: No Hx Substance Use: No Preferred Language: Trinidadian Communication Ability: Effective Language Path Required: No Beliefs That Will Affect Care: None Current Living Situation: Family Current Living Situation Comment: lives with daughter Other Information That Helps Us Care for You: No Feels Safe at Home: Yes Safety Concerns: Feels Safe At This Time Assistive Devices: Walker Review of Systems Review of Systems: All systems reviewed & are unremarkable except as noted in HPI & below Physical Exam Physical Exam: PE per Dr Escalona Results & Data Results & Data Vital Signs (Past 12 Hours) Vital Signs Temp Pulse Pulse Resp BP Pulse Ox O2 Del Method 02/12/25 16:30 108 H 24 120/85 100 Nasal Cannula 02/12/25 16:04 107 H 02/12/25 15:00 100 Nasal Cannula 02/12/25 14:49 104 H 26 H 127/98 100 Nasal Cannula 02/12/25 13:23 36.4 C L 20 Room Air O2 Flow Rate 02/12/25 16:30 2 02/12/25 16:04 02/12/25 15:00 2.5 02/12/25 14:49 2.5 02/12/25 13:23 Laboratory Results Short CBC 02/12/25 Range/Units Unknown WBC 9.59 (4.8-10.8) K/ul Hgb 10.3 L (12.0-16.0) g/dl Hct 32.5 L (37.0-47.0) % Plt Count 194 (130-400) K/uL BMP 02/12/25 Unknown Sodium 130 L Potassium 4.6 Chloride 98 Carbon Dioxide 28 BUN 28 H Creatinine 1.39 H Glucose 161 H Calcium 9.0 Liver Function 02/12/25 Range/Units Unknown Total Bilirubin 0.8 (0.2-1.0) mg/dl AST 30 (13-39) U/L ALT 10 (7-52) U/L Alkaline Phosphatase 96 (34-104) U/L Albumin 3.5 (3.4-5.0) gm/dl Urine 02/12/25 Range/Units 14:40 Urine Color Yellow Urine Appearance Clear (Clear) Urine pH 6.0 (4.5-7.5) Ur Specific Burt 1.008 (1.000-1.030) Urine Protein 1+ H (Negative) Urine Glucose (UA) Negative (Negative) Diagnostic Findings Chest X-Ray 02/12/25 13:42 XR chest 1V portable CLINICAL HISTORY: weakness, sob, chf-avr COMPARISON STUDY: 08/02/2024 FINDINGS: There is cardiac valve repair. There is prominent cardiomegaly with mild pulmonary vascular congestion. There is interval dense opacity in the lower lungs with obscuration of the diaphragm and blunting of the costophrenic angles. No pneumothorax. IMPRESSION: CHF with bilateral pleural effusions and lung base consolidation. ACT 112: Negative or not required by law. Electronically signed by: Aldair Masterson M.D. 02/12/2025 2:02 PM Supervising Physician Co-Signing Physician Notes I have seen and discussed the case with the collaborating advanced practitioner. I agree with the above H&P. I have reviewed and confirmed the patients medical history, the findings on physical examination, and the patients diagnosis and treatment plan with Sherry PORTILLO and agree with the information documented. In short, Ms. Roman is a 74 year old woman with complex cardiac history of prior valvular repair and recent AVR/MVR on 02/02 admitted for signs of volume overload. Patient with complicated course, including thrombocytopenia, DOMENICA, esophageal spasms noted with stricture. Patient states that since returning home yesterday she started to note swelling in BLE and SOB--ultimately it was draining from surgical incision/orior chest tube site that prompted her presentation as it was concerning for bleed. GENERAL APPEARANCE: AxOx4, frail and thin elderly woman. HEENT: NC, AT. MMM. EOMI, clear conjunctiva, oropharynx clear. NECK: thin, bandage on right neck from prior central line, no strikethrough. HEART: irregularly irregular LUNGS: no crackles, diminished bilaterally in bases ABDOMEN: Soft, fading ecchymosis on lower abdomen, slightly protuberant, but nontender. right groin incision from procedure clean, well approximated BACK: No CVAT, no obvious deformity. EXTREMITIES: bilateral pedal and ankle edema NEUROLOGICAL: Grossly nonfocal. Alert and oriented, moving all 4 extremities. CN not formally tested but appear grossly intact. Skin: Warm and dry without any rash. vertical sternal incision well approximated and without drainage, bandage under right breast CDI, dried blood noted under maxillary folds bilaterally Labs with stable hgb and CR at 1.36 down from 1.8 on discharge. #Volume overload #s/p AVR/MVR 02/02 #Bilateral pleural effusions complicated post operative course with multiple transfusions and DOMENICA Discussion held with Cardiology at [place] and with [facility]--would be considered a medical admission, therefore plan for IV lasix strict IOs, daily weights Continue tele Cardiology consult Monitor renal function #Atrial fibrillation previously on digoxin, recently amio s/p procedure noted to have bradycardia briefly Started on Metoprolol daily monitor on tele suspect drainage likely due to volume/effusion given stability of Eliquis rest of plan as above I spent a total of 25 minutes coordinating, documenting, and providing care for this patient excluding time spent in the performance of separately billed services. All of the aforementioned completed outside of collaborating with the assigned advanced practitioner for a full treatment plan. I have reviewed the advanced practitioner's documentation, and I agree with, and take responsibility for the plan of care
--- NOTE | 2025-02-12 18:24 | Emergency Department Note ---
Impression & Plan Acute CHF (congestive heart failure), Anemia, Bilateral edema of lower extremity ED Provider Note NAME: AMY ARAGON AGE: 74 SEX: Female INFORMANT: Patient and daughter ED PROVIDER(S): Bartolo Wen MD CHIEF COMPLAINT: Bleeding and leg swelling PLAN: Disposition: Admitted Outpatient prescription management: none Referral: None MEDICAL DECISION MAKING: Patient presented because of concerns about possible bleeding. She was evaluated promptly. The wound appeared to be draining some serosanguineous like fluid. No acute hemorrhage noted. I-STAT was performed and the patient's hemoglobin was not significantly different than last. Hemoglobin in epic. Daughter had her record pulled up on her phone. Patient was noted to be dyspneic. She has findings consistent with CHF on examination. Patient's saturations were borderline low. She did feel much better with supplemental oxygen. Chest x-ray shows bilateral pleural effusions. BNP is elevated. Remainder patient's labs are rather unremarkable. Renal function was minimally elevated however improved from her hospitalization levels over 3. I did consult with [facility] cardiology, Dr. Garber. He did recommend consultation with her surgeon, Dr. House at [facility]. I did consult with him. Did review the findings. He felt that the patient needed diuresis and could be managed here at this hospital as long as she was tolerating the diuresis well and did not develop any other complications. I did review this with Dr. Garber again and he felt comfortable with her being admitted here. I did ask if he wanted an echo done before her admission and he noted that was not necessary. Patient was given 20 mg of IV Lasix and a Reyna catheter was placed. She did diurese about 500 mL and did feel better on reassessment. Patient and daughter feel comfortable and do wish to be admitted here. Consultation was made with Dr. Escalona of the [facility] hospitalist service. Case was discussed and diagnostics were reviewed. Did review the consultations and the patient was admitted for further management. I refer you to the EMR for further details. Care/management discussed with: manager renewable energy, CT surgery at [facility], cardiology Level of care consideration(s): After review of the information above and other included data, I feel the patient requires escalation of care to admission Triage Nursing notes: reviewed and agree them. Vital Signs: reviewed and remarkable for no significant abnormalities Additional History obtained from: Patient's daughter regarding her hospitalization and postoperative care. Chronic Medical/Social Conditions affecting care: A-fib, anticoagulation Prior/ Outside/ External records reviewed: none Differential Diagnosis: Postoperative hemorrhage, complication of valve replacement, symptomatic anemia, reactive airway disease, pneumonia, pneumothorax, COPD, CHF, infections, cardiac ischemia, pulmonary embolism, musculoskeletal, gastrointestinal, as well as other pathologies. Diagnostics, independently interpreted by me: ECG: Twelve-lead ECG reveals A-fib with RVR at [address] No [address] elevation. Cardiac Monitoring: Cardiac monitoring ordered by me: The patient was placed on continuous cardiac monitoring and observed. It revealed atrial fibrillation at 98 bpm. Medical decision rules: none Imaging studies: Chest x-ray reveals bilateral pleural effusions and cardiomegaly. I refer you to the EMR for further details. HPI: 74 year old Female arrives for evaluation of bleeding and swelling. Patient recently underwent open heart surgery at [facility] for an AVR and mitral valve replacement. Her course was complicated with acute kidney injury and anemia requiring transfusion. Patient also had a failed attempt at a TAVR. Patient's daughter is present and helps with the history. She notes that she was having light-colored bloody discharge from the right chest tube drain site. Patient has also been dealing with increased swelling since her discharge. Patient was instructed to take a dose of her Lasix 40 mg as this was on hold due to her DOMENICA. Patient's daughter notes that she was only able to take 20 mg. pt denies LOC, headache, fevers, chills, diaphoresis, visual changes, neck pain,nausea, vomiting, abdominal pain, back pain, melena, hematochezia, urinary symptoms, numbness, weakness, lymphadenopathy, rash, or other complaints. PAST MEDICAL HISTORY: See Below, A-fib, anticoagulated PAST SURGICAL HISTORY: See Below, SOCIAL HISTORY: See Below, non-smoker HOME MEDICATIONS: See Below ALLERGIES: See Below VITALS: See Below PHYSICAL EXAMINATION: GENERAL: Awake, alert, mildly dyspneic -appearing, in no distress HENT: Normocephalic, atraumatic. Oropharynx unremarkable. EYES: Normal conjunctiva. Sclera non-icteric. NECK: Inspection normal. Non-tender. Supple. No nuchal rigidity. FROM. No masses. RESPIRATORY: Clear to auscultation. No wheezes. No rales. Increased respiratory effort. CARDIAC: Normal rate. Normal rhythm. Systolic murmur. No rubs. Extremities warm and well perfused. Pulses equal. Moderate JVD. GI: Soft, non-distended. No tenderness to palpation. No rebound or guarding. No masses. MUSCULOSKELETAL: Atraumatic. Chest examination reveals healing sternal incision without signs of bleeding. Left low anterior chest tube drain site is CDI. Examination of the right lower chest tube drain site reveals some scant serosanguineous drainage. The back is kyphotic on inspection without obvious abnormality. There is no CVA tenderness to palpation. No joint edema. LOWER EXTREMITIES: Calves are equal size bilaterally and non-tender. 3+ edema. No discoloration. NEURO: Normal sensorium. No sensory or motor deficits noted. SKIN: No rash or jaundice noted. PROCEDURES: none CRITICAL CARE: none OBSERVATION NOTE: none Past Med/Surg History Problem List (Updated 02/12/25 @ 18:24 by Bartolo Wen MD) Bilateral edema of lower extremity (Acute) Anemia (Acute) Acute CHF (congestive heart failure) (Acute) Hyperglycemia Chronic anemia Dyslipidemia Hypoxia (Acute) Atrial fibrillation with RVR (Acute) Paroxysmal A-fib Anemia (Acute) Hypertension Medical History (Updated 02/12/25 @ 18:24 by Bartolo Wen MD) History of pulmonary edema Osteoarthritis Hypertension History of upper gastrointestinal bleeding 2020, no issues since Anemia LAWRENCE (dyspnea on exertion) with climbing stairs Dyslipidemia Congestive heart disease Paroxysmal atrial fibrillation History of anemia History of hyperlipidemia Surgical History (Updated 11/12/24 @ 10:08 by Liya Crowell PA-C) History of left atrial appendage closure History of bilateral cataract extraction History of inguinal hernia repair right History of tooth extraction History of mitral valve repair History of tricuspid valve repair 2017 done in [place] Social History Smoking Status: Never smoker Second Hand Exposure: No; Do You Dip or Chew Tobacco: No; Hx Alcohol Use: No Hx Substance Use: No Preferred Language: Cambodian Communication Ability: Effective Radar Repairer Required: No Beliefs That Will Affect Care: None Current Living Situation: Family Current Living Situation Comment: Daughter and granddaughter Feels Safe at Home: Yes Assistive Devices: None Allergies Allergies Allergy/AdvReac Type Severity Reaction Status Date / Time famotidine AdvReac Severe Gastrointestinal Verified 02/12/25 16:07 Upset pantoprazole AdvReac Severe Gastrointestinal Verified 02/12/25 16:07 Upset prednisone AdvReac Severe Cramping Verified 02/12/25 16:07 of the Muscles [id number]-VQP-[id number] Reductase AdvReac Intermediate MUSCLE Verified 02/12/25 16:07 Inhibitor PAIN AND CRAMPING Home Meds Home Medications Medication Instructions Recorded Confirmed cyanocobalamin (vitamin B-12) 500 500 mcg PO QAM 08/10/21 02/12/25 mcg tablet (Vitamin B-12) acetaminophen 325 mg tablet 325 mg PO HS PRN WITH TYLENOL PM 02/12/25 02/12/25 (Tylenol) FOR SLEEP/PAIN acetaminophen 325 mg tablet 975 mg PO Q8H PRN Pain 02/12/25 02/12/25 (Tylenol) aspirin 81 mg chewable tablet 81 mg PO DAILY 02/12/25 02/12/25 calcium 600 mg-D3 800 unit-mag 40 1 tab PO DAILY 02/12/25 02/12/25 ct-ickt-lbne-ekaterina-boron chew tablet (Caltrate 600-D Plus Minerals) diphenhydramine 25 1 tab PO HS PRN SLEEP/PAIN 02/12/25 02/12/25 mg-acetaminophen 500 mg tablet (Tylenol PM Extra Strength) famotidine 20 mg tablet 20 mg PO DAILY 02/12/25 02/12/25 magnesium sulfate 100 mg capsule 100 mg PO QPM 02/12/25 02/12/25 metoprolol succinate 25 mg 25 mg PO QAM 02/12/25 02/12/25 tablet,extended release 24 hr vit no.133-ferrous 1 tab PO QAM 02/12/25 02/12/25 fumarate 28 mg-folic acid 800 mcg tablet () Previous Rx's Medication Instructions Recorded ferrous sulfate 325 mg (65 mg 325 mg PO QAM #30 tabs 08/13/21 iron) tablet,delayed release apixaban 5 mg tablet (Eliquis) 5 mg PO BID #60 tabs 07/17/24 L.acidop,casei,lactis,rham-B.lact,phani 1 cap PO DAILY #30 caps 08/04/24 625 mg (10 billion cell) capsule (Advanced Probiotic) Results & Data (ED) Vital Signs Vital Signs - 24 hr 02/12/25 13:23 02/12/25 14:49 02/12/25 15:00 Temperature 36.4 C L Temperature Source Temporal Artery Scan Pulse Rate Pulse Rate [Apical] 104 H Respiratory Rate 20 26 H Respiratory Effort / Characteristics Non-Labored Spontaneous Non-Labored Spontaneous Respiratory Depth Normal Normal Respiratory Pattern Tachypnea Blood Pressure [Right Arm] 127/98 Blood Pressure Mean [Right Arm] 107 Blood Pressure Position [Right Arm] Sitting Pulse Oximetry 100 100 Oxygen Delivery Method Room Air Nasal Cannula Nasal Cannula Oxygen Flow Rate 2.5 2.5 Sepsis Recent Fever Within 48 Hours No Sepsis New/Unexplained Change in Mental Status N/A Sepsis Action Taken by Nursing No Action Required 02/12/25 16:04 02/12/25 16:30 Temperature Temperature Source Pulse Rate 107 H Pulse Rate [Apical] 108 H Respiratory Rate 24 Respiratory Effort / Characteristics Non-Labored Spontaneous Respiratory Depth Respiratory Pattern Blood Pressure [Right Arm] 120/85 Blood Pressure Mean [Right Arm] 96 Blood Pressure Position [Right Arm] Pulse Oximetry 100 Oxygen Delivery Method Nasal Cannula Oxygen Flow Rate 2 Sepsis Recent Fever Within 48 Hours Sepsis New/Unexplained Change in Mental Status Sepsis Action Taken by Nursing Laboratory Data 02/12/25 Unknown 02/12/25 Unknown Lab Results 02/12/25 02/12/25 02/12/25 Range/Units 13:56 14:13 14:14 POC Hgb 11.6 L (12.0-16.0) g/dl POC Hct 34 L (37-47) % POC Sodium 130 L (135-144) mmol/L POC Potassium 4.8 (3.3-5.0) mmol/L POC Chloride 98 L (101-112) mmol/L POC Total CO2 23 L (24-31) mmol/L POC Anion Gap 15.0 L (16-25) mmol/L POC BUN 31 H (7-18) mg/dl POC Creatinine 1.6 H (0.6-1.3) mg/dl POC Glucose (other) 157 H (70-99) mg/dl POC Ioniz Calcium Femi 1.08 L (1.12-1.32) mmol/l Troponin I High Sens 261.7 H* (0-14) pg/ml Urine Color Urine Appearance (Clear) Urine pH (4.5-7.5) Ur Specific [place] (1.000-1.030) Urine Protein (Negative) Urine Glucose (UA) (Negative) Urine Ketones (Negative) Urine Blood (Negative) Urine Nitrite (Negative) Urine Bilirubin (Negative) Urine Urobilinogen (Negative) Ur Leukocyte Esterase (Negative) Urine WBC (Auto) (0-5) /hpf Urine RBC (Auto) (0-2) /hpf U Hyaline Cast (Auto) (0-2) /lpf U Epithel Cells (Auto) (0-2) /hpf Urine Bacteria (Auto) (None Seen) Blood Type O Positive Antibody Screen NEGATIVE 02/12/25 Range/Units 14:40 POC Hgb (12.0-16.0) g/dl POC Hct (37-47) % POC Sodium (135-144) mmol/L POC Potassium (3.3-5.0) mmol/L POC Chloride (101-112) mmol/L POC Total CO2 (24-31) mmol/L POC Anion Gap (16-25) mmol/L POC BUN (7-18) mg/dl POC Creatinine (0.6-1.3) mg/dl POC Glucose (other) (70-99) mg/dl POC Ioniz Calcium Femi (1.12-1.32) mmol/l Troponin I High Sens (0-14) pg/ml Urine Color Yellow Urine Appearance Clear (Clear) Urine pH 6.0 (4.5-7.5) Ur Specific [place] 1.008 (1.000-1.030) Urine Protein 1+ H (Negative) Urine Glucose (UA) Negative (Negative) Urine Ketones Negative (Negative) Urine Blood 2+ H (Negative) Urine Nitrite Negative (Negative) Urine Bilirubin Negative (Negative) Urine Urobilinogen Negative (Negative) Ur Leukocyte Esterase Negative (Negative) Urine WBC (Auto) 0-5 (0-5) /hpf Urine RBC (Auto) 3-5 H (0-2) /hpf U Hyaline Cast (Auto) 3-5 H (0-2) /lpf U Epithel Cells (Auto) 0-2 (0-2) /hpf Urine Bacteria (Auto) None Seen (None Seen) Blood Type Antibody Screen Administered Medications Discontinued Medications Acetaminophen (Acetaminophen 500 Mg Tab) 1,000 mg PO NOW STA Stop: 02/12/25 16:26 Last Admin: 02/12/25 16:37 Dose: 1,000 mg Documented By: KILEY Furosemide (Furosemide Inj 20 Mg/2 Ml Vial) 20 mg IV ONE ONE Stop: 02/12/25 14:02 Last Admin: 02/12/25 14:44 Dose: 20 mg Documented By: HANNAH Hydromorphone HCl (Hydromorphone Inj 0.5 Mg/0.5 Ml Syr) 0.25 mg IV NOW STA Stop: 02/12/25 16:35 Last Admin: 02/12/25 16:45 Dose: 0.25 mg Documented By: KILEY Imaging Data Radiologist's Impression: Chest X-Ray 02/12/25 13:42 XR chest 1V portable CLINICAL HISTORY: weakness, sob, chf-avr COMPARISON STUDY: 08/02/2024 FINDINGS: There is cardiac valve repair. There is prominent cardiomegaly with mild pulmonary vascular congestion. There is interval dense opacity in the lower lungs with obscuration of the diaphragm and blunting of the costophrenic angles. No pneumothorax. IMPRESSION: CHF with bilateral pleural effusions and lung base consolidation. ACT 112: Negative or not required by law. Electronically signed by: Aldair Masterson M.D. 02/12/2025 2:02 PM Discharge Plan Visit Data Chief Complaint: Bleeding Stated Complaint: BLEEDING, OPEN HEART INCSISION ED Provider: Bartolo Wen Discharge Problem: Acute CHF (congestive heart failure), Anemia, Bilateral edema of lower extremity Patient Disposition: Admitted As Inpatient Discharge Instructions Interventions: ED Discharge Assessment Last Done: 02/12/25 17:50
[2025-02-12] MEDS: APIXABAN 5 MG TABLET PO SCH (20:18)
[2025-02-12] MEDS: FUROSEMIDE INJ 20 MG/2 ML VIAL IV SCH (20:18)
[2025-02-12] MEDS: ACETAMINOPHEN 500 MG TAB PO SCH (20:19)
--- NOTE | 2025-02-12 20:47 | Electrocardiogram Report ---
Test Reason : Blood Pressure : */* mmHG Vent. Rate : 107 BPM Atrial Rate : * BPM P-R Int : * ms QRS Dur : 84 ms QT Int : 358 ms P-R-T Axes : * 32 52 degrees QTcB Int : 477 ms Atrial fibrillation with rapid ventricular response Nonspecific ST abnormality Abnormal ECG When compared with ECG of 02-Aug-2024 19:39, Atrial fibrillation has replaced Sinus rhythm ST no longer depressed in Inferior leads T wave inversion no longer evident in Inferior leads T wave inversion no longer evident in Lateral leads Confirmed by Barrington Banks ([id number]) on 02/12/2025 8:46:48 PM Referred By: REFERRED SELF Confirmed By: Barrington Banks
[2025-02-12] MEDS: MELATONIN 3 MG TAB PO PRN (21:02)
[2025-02-12 22:02] LABS: Hematocrit (blood only) 25.9 % (37.0-47.0); Hemoglobin 8.1 g/dl (12.0-16.0)
[2025-02-12] MEDS: ALBUT/IPRATROP 3MG/0.5MG NEB 3 ML VIAL NEB STA (23:18)
[2025-02-12 23:25] LABS: Base Excess VBG 0.8 mEq/L; HCO3 VBG 27 mmol/L; Oxygen Saturation VBG 69.9 %; PCO2 VBG 49 mmHg (38-50); PO2 VBG 40 mmHg; pH VBG 7.35 (7.36-7.41)
--- OUTSIDE RECORDS SUMMARY | 2025-02-13 00:30 | External Medical Summary | Summary of Care ---
Author Name Unknown Organization [facility] Address [address] [place] [address] Phone [phone] Care Team Providers Care Psychodramatist Name Role Phone Zuleima Garcia MD Primary Care Provider + Reason for Visit * Reason Onset Date Comments [facility]: Enrollment 02/09/2025 Encounter Details Date Type Department Care Team (Late st Contact Info) Description 02/09/2025 Telephone [facility] [place] [address] [place] [address] Amanuel Heath, SEB [address], [place] [id number] [facility]: Enrollment Allergies Active Allergy Reactions Criticality Noted Date Comments Ezetimibe Low 11/28/2023 General malaise or feeling unwell Famotidine Diarrhea Low 09/13/2024 Prednisone Muscle pain Medium 07/15/2024 Pantoprazole Hives Medium 02/07/2022 GI upset Rosuvastatin Medium 11/28/2023 Muscle aches/pains, fatigue Statins Medium 11/01/2022 myalgia Torsemide Low 08/12/2024 GI symptoms documented as of this encounter (statuses as of 02/11/2025) Medications Ferrous Sulfate 325 (65 Fe) MG Oral Tablet Delayed Release Take 1 Tablet by mouth in the morning. In the morning.. 1 Active Magnesium 100 MG Oral Tablet Take 1 Tablet by mouth every evening. Active Advanced Probiotic Oral Capsule Take 1 Tablet by mouth in the morning. Active Vitamin B-12 500 MCG Oral Tablet (vitamin B-12) Take 1 Tablet by mouth in the morning. 4 Active Caltrate 600+D Plus Minerals 600-800 MG-UNIT Oral Tablet ChewableIndicat ions:Vitamin D deficiency Take 1 Tablet by mouth every morning. 4 Active Apixaban 5 MG Oral Tablet (Eliquis)Indica tions:Paroxysma l A-fib (HCC) Take 1 Tablet by mouth in the morning and 1 Tablet before bedtime. 180 Tablet 3 09/07/2024 11:51 AM EDT 4 Active Aspirin 81 MG Oral Tablet Chewable Take 1 Tablet by mouth in the morning. 30 Tablet 11 5 Active Metoprolol Succinate ER 25 MG Oral Tablet Extended Release 24 Hour (toPROL XL) Take 1 Tablet by mouth in the morning. 30 Tablet 11 5 Active Vitamin and Mineral 28-0.8 MG Oral Tablet Take 1 Tablet by mouth in the morning. 30 Tablet 1 5 Active Famotidine 20 MG Oral Tablet (Pepcid) Take 1 Tablet by mouth in the morning. Take for 30 days, then stop. 30 Tablet 5 Active traMADol HCl 25 MG Oral Tablet Take 25 mg by mouth every 12 hours as needed for Pain, Moderate. 10 Tablet 5 Active Additional Information Patient not taking.Reported on 02/11/2025 documented as of this encounter (statuses as of 02/11/2025) Active Problems Problem Noted Date Diagnosed Date Multiple myeloma not having achieved remission 0 02/05/2025 SSS (sick sinus syndrome) 02/04/2025 S/P MVR (mitral valve replacement) 02/02/2025 Prosthetic mitral valve regurgitation, sequela 0 02/02/2025 Nonrheumatic aortic valve insufficiency 02/02/20 25 Nephrotic range proteinuria 01/30/2025 Thrombocytopenia 01/29/2025 Acquired hemolytic anemia 01/29/2025 Esophageal dysphagia 01/29/2025 Abnormal esophagram 01/29/2025 S/P transcatheter mitral valve replacement (TMVR ) 01/28/2025 Prosthetic mitral valve regurgitation 01/28/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 01/28/2025 Acute kidney injury (nontraumatic) 01/28/2025 Mitral regurgitation 01/22/2025 Normocytic anemia 01/21/2025 Monoclonal gammopathy 01/20/2025 Congestive heart disease 01/18/2025 Dyslipidemia 01/18/2025 Paroxysmal atrial fibrillation 01/18/2025 Severe mitral regurgitation 01/18/2025 Mitral valve insufficiency 01/18/2025 Lytic lesion of bone on x-ray 07/23/2024 Senile osteoporosis 07/23/2024 Pulmonary edema cardiac cause 07/23/2024 Hyperlipidemia LDL goal <70 08/19/2023 H/O mitral valve repair 12/08/2019 Hx of tricuspid valve repair 12/08/2019 Paroxysmal A-fib 08/15/2019 Hypertension goal BP (blood pressure) < 130/80 documented as of this encounter (statuses as of 02/11/2025) Resolved Problems Problem Noted Date Diagnosed Date Resolved Date HTN, goal below 130/80 08/12/201808/16 documented as of this encounter (statuses as of 02/11/2025) Immunizations Name Administration Dates Next Due COVID-19 mRNA, LNP-s, No Pre serve, 2-Dose Series (DoubleDutch) 11/04/2021,02/14/2021,01/24/2021 Covid-19, Mrna, Lnp-s, Pf, B ivalent, 30 Mcg, IM, 12 yrs and above (DoubleDutch) 08/25/2022 Pneumococcal Conjugate Vacc, 13 Valent (Prevnar) 05/10/2018 Pneumococcal Polysaccharide PPV23 (Pneumovax) 05/10/2018 Season Influenza, Quad, PF, Adjuvanted, 65+ Yrs, IM (FLUAD) 08/21/2023,09/02/2022 Seasonal Influenza Virus Vac cine, Unspecified Formulation 08/15/2019,05/10/2018,05/08/2018 Seasonal Influenza, High Dos e, Trivalent, PF, IM (Fluzone HD) 10/01/2024 Seasonal Influenza, Quadriva lent Hd (Fluzone Hd) [...] Date Recorded PHQ Adult Total Score 0 09/17/2024 Hunger Vital Sign Answer Date Recorded Within the past 12 months, y ou worried that your food would run out before you got the money to buy more. Never true 08/05/20 24 Within the past 12 months, t he food you bought just didn't last and you didn't have money to get more. Never true 08/05/2024 Childcare Answer Date Recorded Do you feel overwhelmed with taking care of a child, family member or friend? No 08/05/2024 Does your family need help f inding childcare? (Household - for ages 0-17 years) Not on file 08/05/2024 Clothing Answer Date Recorded Have you been unable to get clothing when it was really needed? No 08/05/2024 Is your family able to get c lothes or diapers when needed? (Household - for ages 0-17 years) Not on file 08/05/2024 Personal Safety Answer Date Recorded Do you feel unsafe or have concerns for your saf ety? No 01/27/2025 Do you have concerns for you r family's safety? (Household - for ages 0-17 years) Not on file 01/27/2025 Utilities Answer Date Recorded Do you have trouble paying y our heating, water, or electric bill? No 01/27/2025 Is your family able to pay t he heat, water, or electric bill? (Household - for ages 0-17 years) Not on file 01/27/2025 Does your family have access to good internet? (Household - for ages 0-17 years) Not on file 01/27/2025 Employment Status Answer Date Recorded Are you unemployed or without regular income? No 08/05/2024 Does the household have a re gular source of income? (Household - for ages 0-17 years) Not on file 08/05/2024 Social Connections Answer Date Recorded How often do you feel lonely or isolated from th ose around you? Never 08/05/2024 Financial Resource Strain Answer Date R ecorded Do you have any trouble payi ng for your medications, or do you think you might in the future? No 08/05/2024 Does your family have troubl e paying for medicine? (Household - for ages 0-17 years) Not on file 08/05/2024 Transportation Needs Answer Date Record ed Do you have trouble getting a ride to medical visits or work? (Adult - for ages 18 years and over) Not on file 01/27/2025 Does your family have a hard time getting a ride to doctors visits? (Household - for ages 0-17 years) Not on file 01/27/2025 Has lack of transportation k ept you from medical appointments, meetings, work, or from getting things needed for daily living? Check all that apply. No 01/27/2025 Do you (or your family) have trouble finding or paying for a ride (transportation)? (Household - for ages 0-17 years) Not on file 01/27/2025 Housing Stability Answer Date Recorded Do you currently live in a s helter or have no steady place to sleep at night? No 01/27/2025 Do you think you are at risk of becoming homeless? (Adult - for ages 18 years and over) Not on file 01/27/2025 Does your family worry about paying for your home or becoming homeless? (Household - for ages 0-17 years) Not on file 0 01/27/2025 Are you homeless or worried that you might be in the future? No 01/27/2025 Are you (or your family) kesha eless or worried that you might be in the future? (Household - for ages 0-17 years) Not on file Food Insecurity Answer Date Recorded Do you need food for this week? No 08/05/2024 Are you able to get enough f ood for your family? (Household - for ages 0-17 years) Not on file 08/05/2024 Does your family need food t his week? (Household - for ages 0-17 years) Not on file 08/05/2024 Do you always have enough fo od for your family? (Household - for ages 0-17 years) Not on file 08/05/2024 Food Insecurity Answer Date Recorded Within the past 12 months, y ou worried that your food would run out before you got the money to buy more. Never true 01/28/20 25 Within the past 12 months, t he food you bought just didn't last and you didn't have money to get more. Never true 01/27/2025 Do you need food for this week? No 01/27/2025 Comments No Sex and Gender Information Value Date Recorded Sex Assigned at Female 08/16/2020 9:31 AM EDT Legal Sex Female 4:15 PM EDT Gender Identity Female 08/16/2020 9:31 AM EDT Sexual Orientation Straight 08/16/2020 9: 31 AM EDT documented as of this encounter Functional Status * Are you deaf or do you have serious difficulty hearing? Answer Date of Assessment Author No 01/27/2025 9:48 PM Mele Davis RN * Are you blind or do you have serious difficulty seeing, even when wearing glasses? Answer Date of Assessment Author No 01/18/2025 8:15 PM Sushila Anderson RN * Do you have serious difficulty walking or climbing stairs? (5 years old or older) Answer Date of Assessment Author No 01/27/2025 9:48 PM Mele Davis RN * Do you have difficulty dressing or bathing? (5 years old or older) Answer Date of Assessment Author No 01/27/2025 9:48 PM Mele Davis RN * Because of a physical, mental, or emotional condition, do you have difficulty doing errands alone such as visiting a doctors office or shopping? (15 years old or older) Answer Date of Assessment Author No 01/27/2025 9:48 PM Mele Davis RN documented as of this encounter Mental Status * Because of a physical, mental, or emotional condition, do you have serious difficulty concentrating, remembering, or making decisions? (5 years old or older) Answer Entry Date Author No 01/27/2025 9:48 PM EST Mele Torres RN documented in this encounter Plan of Treatment Upcoming Encounters Date Type Department Care Team (Late st Contact Info) Description 02/11/2025 5:50 PM EDT Anticoagulation Pharmacy, [facility] [address] [facility] [place] [address] Pharmacist1, [facility] [address] [facility] [place] [address] S/P MVR (mitral valve replacement)*; Prosthetic mitral valve regurgitation, sequela 02/12/2025 9:40 AM EDT Home Visit [facility], [facility] [address] [facility] [place] [address] Dina Peck CRNP [address] [facility] [place] [address] Felisa Rojas, Community Health Conciliator [address] [place] [address] 02/15/2025 3:00 PM EDT Telemedicine Cardiothoracic Surg [facility] [address] [place] [address] Barrington Carnes, PAJamshidC [address] [place] [address] 02/25/2025 11:20 AM EDT Office Visit General Internal Medicine [facility] [address] [facility] [place], [place] [address] Zuleima Garcia MD [address] [facility] [place], [place] [address] 03/01/2025 11:30 AM EDT Home Visit [facility], [facility] [address] [facility] [place] [address] Mya Hughes RN [address] [place] [address] 03/10/2025 1:45 PM EDT Office Visit Cardiothoracic Surg [facility] [address] [place] [address] Jonathan House MD [address] [place] [address] 04/01/2025 9:20 AM EDT Office Visit General Internal Medicine [facility] [address] [place] [address] Zuleima Garcia MD [address] [place] [address] 04/01/2025 10:30 AM EDT Laboratory Laboratory, [facility] [address] [facility] [place] [id number] Mario Arredondo [facility] [address] [place] [address] 04/01/2025 11:00 AM EDT Office Visit Cardiology, [facility] [address] [place] [address] Daiana Anne CRNP [address] [place] [address] 04/01/2025 11:15 AM EDT Cardiac Studies Cardiac Studies, [facility] [address] [facility] [place] [address] 04/01/2025 2:00 PM EDT Cardiac Studies Cardiac Studies, [facility] [address] [place] [address] Scheduled Procedures Name Priority Associated Diagnoses Date/Ti me COLONOSCOPY FLEXIBLE PROXIMA L DIAGNOSTIC Recall Iron deficiency anemia due to chronic blood loss Health Maintenance Due Date Last Done Comments Fecal Occult Blood Test 1996 Sigmoidoscopy 1996 Cologuard 08/28/2021 08/28/2018 COVID-19 Vaccine ( season) 2024 10/13/2023, 08/25/2022, 04/13/2022, Additional history exists Depression Screening 09/17/2025 09/17/2024, 08/12/20 24 Mammogram 10/01/2025 10/01/2024, 07/27, 08/14/2023, Additional history exists GFR 02/10/2026 02/10/2025, 01/23, 02/08/2025, Additional history exists DXA Scan 09/17/2026 09/17/2024 Albumin/Creatinine Ratio 01/29/2028 025, 11/03/2022, 06/21/2020 DTap/Tdap Vaccines (2 - Td or Tdap) 05/10/2028 05/10/2018 Lipid Panel 01/19/2030 01/19/2025, 02/23, 08/24/2023, Additional history exists Colonoscopy 08/07/2031 08/07/2021, 08/07/2021 Colorectal Cancer Screening 08/07/2031 Pneumococcal Vaccine: 50+ Years Completed 05/10/2018, 05/10/2018 Zoster Vaccines Completed 06/09/2018, 05/10/2018 VITAMIN D LEVEL ONCE IN A LIFETIME-USE SMARTSET# [id number] Completed 01/12/2023, 06/03/2021, 08/16/2018 Influenza Vaccine (FLU shot) Completed 05/2024, 08/21/2023, 09/02/2022, Additional history exists HPV (Gardasil) Vaccine Aged Out No lo nger eligible based on patient's age to complete this topic Hepatitis B Vaccine Aged Out No longe r eligible based on patient's age to complete this topic MENINGOCOCCAL (MENACTRA/MENVEO) Aged Out No longer eligible based on patient's age to complete this topic Meningitis B Vaccine (Bexsero/Trumemba) Aged Out No longer eligible based on patient's age to complete this topic documented as of this encounter Medical Devices Implanted Type Area Medical Liaison Device Identifier Shelf Expiration Date Model / Serial / Lot Cath Thermodilution 6fr - [id number] Implanted:Qty: 1 on 01/18/2025 by Melinda Jin MD at [facility] [employer] [id number] 06/24/2026 [id number] / / [id number] Cath Iabp Sensation 40cc Fiber - [id number] Implanted:Qty: 1 on 01/27/2025 by Nelson Mariee MD at [facility] [employer] : ENDYQUET [id number] 06/05/2027 0684-00- [id number] / / [id number] Catheter Angio Pigtail Curve 5fr X 110cm Without Sideholes Impulse - [id number] Implanted:Qty: 1 on 01/27/2025 by Nelson Mariee MD at [facility] Degree Controls : INTRV CARD [id number] 08/07/2026 [id number] / / [id number] Valve Mitral Size 29 Mm Non Rotatable Porcine Bioprosthesis Mosaic - [id number] - [id number] Implanted:Qty: 1 on 02/02/2025 by Jonathan House MD at [facility] Left: Heart [employer] : CARDIAC SURGERY [id number] 08/11/2029 [id number] / [id number] / [id number] Suture Steel 6 B&S19 M654g - [id number] Implanted:Qty: 4 on 02/02/2025 by Jonathan House MD at [facility] N/A: Sternum JNJ : [employer] 08/24/2029 [id number] / / [id number] Valve Heart Aortic Mag Eas 23m - [id number] - [id number] Implanted:Qty: 1 on 02/02/2025 by Jonathan House MD at [facility] N/A: Aorta [employer] [id number] 05/31/2028 [id number] 3MM / [id number] / [id number] Suture Steel 6 B&S19 M654g - [id number] Implanted:Qty: 3 on 02/02/2025 by Jonathan House MD at [facility] N/A: Sternum JNJ : [employer] 02/22/2029 [id number] / / [id number] documented as of this encounter Advance Directives * Full Code (Latest Code Status on File) Date Activated Date Inactivated Comments 02/02/2025 4:56 PM 02/10/2025 5:44 PM This order r eflects the patients wishes and were consensually agreed upon. Question Answer Comments Discussion of Advance Directives occurred with: Patient * Full Code Date Activated Date Inactivated Comments 01/27/2025 4:51 PM 02/02/2025 6:47 AM This order re flects the patients wishes and were consensually agreed upon. Question Answer Comments Discussion of Advance Direct catarina occurred with: Not Discussed due to patient's condition * Full Code Date Activated Date Inactivated Comments 01/18/2025 12:48 PM 01/21/2025 11:46 PM This order reflects the patients wishes and were consensually agreed upon. Question Answer Comments Discussion of Advance Direct catarina occurred with: Not Discussed due to patient's condition Care Teams Psychodramatist Relationship Specialty Start Date End Date Zuleima Garcia MD [address] [place] [address] PCP - General Internal Medicine 08/28/24 documented as of this encounter
--- OUTSIDE RECORDS SUMMARY | 2025-02-13 00:31 | External Medical Summary | Summary of Care ---
Author Name Unknown Organization [facility] Address [address] [place] [address] Phone [phone] Care Team Providers Care Supervisor Travel Information Center Name Role Phone Zuleima Garcia MD Primary Care Provider + Encounter Details Date Type Department Care Team (Late st Contact Info) Description 02/04/2025 CardioDiagnostic Study Cardiology [facility] [address] [place] [address] Nelson Mariee MD [address] [place] [address] EKG Report Allergies Active Allergy Reactions Criticality Noted Date Comments Ezetimibe Low 11/28/2023 General malaise or feeling unwell Famotidine Diarrhea Low 09/13/2024 Prednisone Muscle pain Medium 07/15/2024 Pantoprazole Hives Medium 02/07/2022 GI upset Rosuvastatin Medium 11/28/2023 Muscle aches/pains, fatigue Statins Medium 11/01/2022 myalgia Torsemide Low 08/12/2024 GI symptoms documented as of this encounter (statuses as of 02/10/2025) Medications Ferrous Sulfate 325 (65 Fe) MG Oral Tablet Delayed Release Take 1 Tablet by mouth in the morning. In the morning.. 08/13/2021 Active Magnesium 100 MG Oral Tablet Take 1 Tablet by mouth every evening. Active Advanced Probiotic Oral Capsule Take 1 Tablet by mouth in the morning. Active Vitamin B-12 500 MCG Oral Tablet (vitamin B-12) Take 1 Tablet by mouth in the morning. 08/12/2024 Active Caltrate 600+D Plus Minerals 600-800 MG-UNIT Oral Tablet ChewableIndicat ions:Vitamin D deficiency Take 1 Tablet by mouth every morning. 08/12/2024 Active Apixaban 5 MG Oral Tablet (Eliquis)Indica tions:Paroxysma l A-fib (HCC) Take 1 Tablet by mouth in the morning and 1 Tablet before bedtime. 180 Tablet 3 09/07/2024 11:51 AM EDT 08/12/2024 Active Aspirin 81 MG Oral Tablet Chewable Take 1 Tablet by mouth in the morning. 30 Tablet 11 02/11/2025 Active Metoprolol Succinate ER 25 MG Oral Tablet Extended Release 24 Hour (toPROL XL) Take 1 Tablet by mouth in the morning. 30 Tablet 11 02/11/2025 Active Vitamin and Mineral 28-0.8 MG Oral Tablet Take 1 Tablet by mouth in the morning. 30 Tablet 1 02/10/2025 Active Famotidine 20 MG Oral Tablet (Pepcid) Take 1 Tablet by mouth in the morning. Take for 30 days, then stop. 30 Tablet 02/11/2025 Active traMADol HCl 25 MG Oral Tablet Take 25 mg by mouth every 12 hours as needed for Pain, Moderate. 10 Tablet 02/10/2025 Active documented as of this encounter (statuses as of 02/10/2025) Active Problems Problem Noted Date Diagnosed Date [...] as of this encounter (statuses as of 02/10/2025) Resolved Problems Problem Noted Date Diagnosed Date Resolved Date HTN, goal below 130/80 08/12/201808/16 documented as of this encounter (statuses as of 02/10/2025) Immunizations Name Administration Dates Next Due COVID-19 mRNA, LNP-s, No Pre serve, 2-Dose Series ([facility]) 11/04/2021,02/14/2021,01/24/2021 Covid-19, Mrna, Lnp-s, Pf, B ivalent, 30 Mcg, IM, 12 yrs and above ([facility]) 08/25/2022 Pneumococcal Conjugate Vacc, 13 Valent (Prevnar) [...] Entry Date Author No 01/27/2025 9:48 PM Mele Davis RN documented in this encounter Procedure Notes * Socorro Perdue MD - 02/04/2025 12:35 PM EDTAssociated Order(s): EKG REPORT REASON FOR STUDY: CONCLUSIONS: Sinus rhythm with Premature atrial complexes ST & T wave abnormality, consider inferior ischemia Abnormal ECG When compared with ECG of 03-Feb-2025 04:42, Sinus rhythm has replaced Junctional rhythm Nonspecific T wave abnormality no longer evident in Lateral leads Ventricular Rate: 60 Atrial Rate: 60 OR Interval: 182 QRS Duration: 92 QT/QTc: 434/434 ms P-R-T [place]: 0 : 15 : -52 degrees documented in this encounter Plan of Treatment Upcoming Encounters Date Type Department Care Team (Late st Contact Info) Description 02/11/2025 5:50 PM EDT Anticoagulation Pharmacy, [facility] [place] 200 [facility] [place] [address] Pharmacist1, [facility] 200 [facility] [place] [address] 02/15/2025 3:00 PM EDT Telemedicine Cardiothoracic Surg [facility] [place] [address] [place] [address] Barrington Carnes PA-C [address] [place] [address] 02/25/2025 11:20 AM EDT Office Visit General Internal Medicine [facility] 200 [facility] [place] [address] Zuleima Garcia MD 200 [facility] [place] [address] 03/10/2025 1:45 PM EDT Office Visit Cardiothoracic Surg [facility] [place] [address] [place] [address] Jonathan House MD [address] [place] [address] 04/01/2025 9:20 AM EDT Office Visit General Internal Medicine [facility] [address] [place], [place] [address] Zuleima Garcia MD 200 [facility] [place] [address] 04/01/2025 10:30 AM EDT Laboratory Laboratory, [facility] 132 [place] [phone] [facility] [address] [place] [address] 04/01/2025 11:00 AM EDT Office Visit Cardiology, [facility] [address] [place] [address] Daiana Anne CRNP 132 [facility] [address] 04/01/2025 11:15 AM EDT Cardiac Studies Cardiac Studies, [facility] 132 [place] [address] 04/01/2025 2:00 PM EDT Cardiac Studies Cardiac Studies, [address] [place] [address] Scheduled Procedures Name Priority Associated Diagnoses Date/Ti [...] D LEVEL ONCE IN A LIFETIME-USE SMARTSET# [id number] Completed 01/12/2023, 06/03/2021, 08/16/2018 Influenza Vaccine (FLU [...] this encounter Medical Devices Implanted Type Area Prototyper Device Identifier Shelf Expiration Date Model / Serial / Lot Cath Thermodilution 6fr - [id number] Implanted:Qty: 1 on 01/18/2025 by Melinda Jin MD at [facility] [employer] [id number] 06/24/2026 [id number] / / [id number] Cath Iabp Sensation 40cc Fiber - [id number] Implanted:Qty: 1 on 01/27/2025 by Nelson Mariee MD at [facility] [employer] : MAQUET [id number] 06/05/2027 0684-00- 0568-01U / / [id number] 29 Catheter Angio Pigtail Curve 5fr X 110cm Without Sideholes Impulse - [id number] Implanted:Qty: 1 on 01/27/2025 by Nelson Mariee MD at [facility] [employer] : INTRV CARD [id number] 08/07/2026 [id number] 1402 / / [id number] Valve Mitral Size 29 Mm Non Rotatable Porcine Bioprosthesis Mosaic - [id number] - [id number] Implanted:Qty: 1 on 02/02/2025 by Jonathan House MD at [place] [facility] Left: Heart [employer] : CARDIAC SURGERY [id number] 08/11/2029 [id number] / [id number] / [id number] Suture Steel 6 B&S19 M654g - [id number] Implanted:Qty: 4 on 02/02/2025 by Jonathan House MD at [place] [facility] N/A: Sternum JNJ : [employer] 08/24/2029 M654G / / [id number] Valve Heart Aortic Mag Eas 23m - [id number] - [id number] Implanted:Qty: 1 on 02/02/2025 by Jonathan House MD at OR [facility] N/A: Aorta [employer] DARYL [id number] 05/31/2028 [id number] 3MM / [id number] / [id number] Suture Steel 6 B&S19 M654g - [id number] Implanted:Qty: 3 on 02/02/2025 by Jonathan House MD at [place] [facility] N/A: Sternum JNJ : [employer] 02/22/2029 M654G / / [id number] documented as of this encounter Procedures Procedure Name Priority Date/Time Associated Diagnosis Comments EKG REPORT 02/04/2025 12:35 PM EDT documented in this encounter Results * EKG REPORT (02/04/2025 12:35 PM EDT) 02/04/2025 12:3 5 PM EDT Narrative Procedure Note Socorro Perdue MD - 02/04/2025 12:35 PM EDT REASON FOR STUDY: CONCLUSIONS: Sinus rhythm with Premature atrial complexes ST & T wave abnormality, consider inferior ischemia Abnormal ECG When compared with ECG of 03-Feb-2025 04:42, Sinus rhythm has replaced Junctional rhythm Nonspecific T wave abnormality no longer evident in Lateral leads Ventricular Rate: 60 Atrial Rate: 60 OR Interval: 182 QRS Duration: 92 QT/QTc: 434/434 ms P-R-T [place]: 0 : 15 : -52 degrees us Nelson Mariee MD EKG Final Result documented in this encounter Advance Directives * Full Code [...] Discussed due to patient's condition Care Teams Supervisor Travel Information Center Relationship Specialty Start Date End Date Zuleima Garcia MD [address] [place] [address], [place] [address] PCP - General Internal Medicine 08/28/24 documented as of this encounter
--- OUTSIDE RECORDS SUMMARY | 2025-02-13 00:31 | External Medical Summary | Summary of Care ---
Author Name Unknown Organization [facility] Address [address] [place] [address] Phone [phone] Care Team Providers Care Addictions Recovery Specialist Name Role Phone Zuleima Garcia MD Primary Care Provider + Reason for Visit * Reason Onset Date Comments Appointment 02/09/2025 Encounter Details Date Type Department Care Team (Late st Contact Info) Description 02/09/2025 Telephone [facility] [address] [place] [address] Jaziel Pan, SEB [address] [place] [address] Appointment (//) Allergies Active Allergy Reactions Criticality Noted Date [...] mouth in the morning. In the morning.. 08/13/20 21 Suspended Magnesium 100 MG Oral Tablet Take 1 Tablet by mouth every evening. Suspended Advanced Probiotic Oral Capsule Take 1 Tablet by mouth in the morning. Suspended Vitamin B-12 500 MCG Oral Tablet (vitamin B-12) Take 1 Tablet by mouth in the morning. 08/12/20 24 Suspended Caltrate 600+D Plus Minerals 600-800 MG-UNIT Oral Tablet ChewableIndicat ions:Vitamin D deficiency Take 1 Tablet by mouth every morning. 08/12/20 24 Suspended amLODIPine Besylate 5 MG Oral Tablet (Norvasc)Indica tions:Hypertens ion goal BP (blood pressure) < 130/80 Take 0.5 Tablets by mouth in the morning. 08/12/20 24 Suspended Apixaban 5 MG Oral Tablet (Eliquis)Indica tions:Paroxysma l A-fib (HCC) Take 1 Tablet by mouth in the morning and 1 Tablet before bedtime. 180 Tablet 3 09/07/2024 11:51 AM EDT 08/12/20 24 Suspended Metoprolol Succinate ER 50 MG Oral Tablet Extended Release 24 Hour (toPROL XL) Take 1 Tablet by mouth in the morning and 1 Tablet before bedtime. 180 Tablet 3 08/17/20 24 Suspended DIURETIC TITRATION PLANIndications :Heart failure with preserved ejection fraction, unspecified HF chronicity (HCC) If no improvement on day 3, contact heart failure managing provider. 1 Each 11/16/20 24 Suspended Furosemide 20 MG Oral Tablet (Lasix)Indicati ons:Acute on chronic HFrEF (heart failure with reduced ejection fraction) (HCC) Two tablets by mouth daily with an extra dose as needed for weight gain or worsening leg swelling 210 Tablet 3 11/19/20 24 Suspended Digoxin 125 MCG Oral Tablet (Lanoxin) Take 1 Tablet by mouth in the morning. 90 Tablet 3 11/19/20 24 Suspended documented as of this encounter (statuses as [...] mRNA, LNP-s, No Pre serve, 2-Dose Series ([facility]) 11/04/2021,02/14/2021,01/24/2021 Covid-19, Mrna, Lnp-s, Pf, B ivalent, 30 Mcg, IM, 12 yrs and above ([facility]) 08/25/2022 Pneumococcal Conjugate Vacc, 13 Valent (Prevnar) [...] Mele Davis RN documented in this encounter Miscellaneous Notes * Telephone Encounter - Jaziel Pan OSA - 02/09/2025 3:54 PM EDT 02/09-[facility] Looking at wei/ferrer 02/12 940/1010am documented in this encounter Plan of Treatment Upcoming Encounters Date Type Department Care Team (Late st Contact Info) Description 02/10/2025 5:50 PM EDT Anticoagulation Pharmacy, [facility] [place] [address] [place] [address] [address] Pharmacist1, [facility] [address] [place] [address] [address] 02/25/2025 11:20 AM EDT Office Visit General Internal Medicine [facility] [place] [address] [place] [address] [address] Zuleima Garcai MD [address] [place] [address] [address] 03/10/2025 1:45 PM EDT Office Visit Cardiothoracic Surg [facility] [address] [place] [address] Jonathan House MD [address] [place] [address] 04/01/2025 9:20 AM EDT Office Visit General Internal Medicine Jaime Preciado [place] [address] [place] [address] [address] Zuleima Garcia MD [address] [place] [address] [address] 04/01/2025 10:30 AM EDT [address] Laboratory, [address] [address] Mario Arredondo [facility] 132 [facility] [place] [address] 04/01/2025 11:00 AM EDT Office Visit Cardiology, [facility] [address] [place] [address] Daiana Anne CRNP 132 [facility] [place] [address] 04/01/2025 11:15 AM EDT Cardiac Studies Cardiac Studies, [facility] 132 [facility] [place] [address] 04/01/2025 2:00 PM EDT Cardiac Studies Cardiac Studies, [address] [address] Scheduled Procedures Name Priority Associated Diagnoses Date/Ti [...] 10/01/2024, 07/27, 08/14/2023, Additional history exists GFR 02/09/2026 02/09/2025, 01/23, 02/07/2025, Additional history exists DXA Scan 09/17/2026 09/17/2024 Albumin/Creatinine Ratio 01/29/2028 025, 11/03/2022, 06/21/2020 DTap/Tdap Vaccines (2 - Td or Tdap) 05/10/2028 05/10/2018 Lipid Panel 01/19/2030 01/19/2025, 04/, 08/24/2023, Additional history exists Colonoscopy 08/07/2031 08/07/2021, 08/07/2021 Colorectal Cancer Screening 08/07/2031 Pneumococcal Vaccine: 50+ Years Completed 05/10/2018, 05/10/2018 Zoster Vaccines Completed 06/09/2018, 05/10/2018 VITAMIN D LEVEL ONCE IN A LIFETIME-USE SMARTSET# [id number] Completed 01/12/2023, 06/03/2021, 08/16/2018 Influenza Vaccine (FLU [...] this encounter Medical Devices Implanted Type Area Wallpaper Consultant Device Identifier Shelf Expiration Date Model / Serial / Lot Cath Thermodilution 6fr - [id number] Implanted:Qty: 1 on 01/18/2025 by Melinda Jin MD [place] [facility] [employer] [id number] 06/24/2026 [id number] / / [id number] Cath Iabp Sensation 40cc Fiber - [id number] Implanted:Qty: 1 on 01/27/2025 by Nelson Mariee MD [place] [facility] [employer] : MAQUET [id number] 06/05/2027 0684-00- 0568-01U / / [id number] 29 Catheter Angio Pigtail Curve 5fr X 110cm Without Sideholes Impulse - [id number] Implanted:Qty: 1 on 01/27/2025 by Nelson Mariee MD [place] [facility] [employer] : INTRV CARD [id number] 08/07/2026 [id number] 1402 / / [id number] Valve Mitral Size 29 Mm Non Rotatable Porcine Bioprosthesis [facility] - [id number] - [id number] Implanted:Qty: 1 on 02/02/2025 by Jonathan House MD [place] [facility] Left: Heart [employer] : CARDIAC SURGERY [id number] 08/11/2029 310C29 / [id number] / [id number] Suture Steel 6 B&S19 M654g - [id number] Implanted:Qty: 4 on 02/02/2025 by Jonathan House MD [place] [facility] N/A: Sternum JNJ : [employer] 08/24/2029 M654G / / [id number] Valve Heart Aortic Mag Eas 23m - [id number] - [id number] Implanted:Qty: 1 on 02/02/2025 by Jonathan House MD [place] [facility] N/A: Aorta [employer] DARYL [id number] 05/31/2028 [id number] 3MM / [id number] / [id number] Suture Steel 6 B&S19 M654g - [id number] Implanted:Qty: 3 on 02/02/2025 by Jonathan House MD [place] [facility] N/A: Sternum JNJ : [employer] 02/22/2029 M654G / / [id number] documented as of this encounter Advance Directives * Full Code (Latest Code Status on File) Date Activated Date Inactivated Comments 02/02/2025 4:56 PM This order ref lects the patients wishes and were consensually agreed [...] Discussed due to patient's condition Care Teams Addictions Recovery Specialist Relationship Specialty Start Date End Date Garcia, Zuliema Casimiro, MD 200 [place] [address] PCP - General Internal Medicine 08/28/24 documented as of this encounter
--- OUTSIDE RECORDS SUMMARY | 2025-02-13 00:31 | External Medical Summary | Summary of Care ---
Author Name Unknown Organization [facility] Address [address] [place] [address] Phone [phone] Care Team Providers Care Drawer Maker Name Role Phone Zuleima Garcia MD Primary Care Provider + Reason for Visit * Reason Onset Date Comments Appointment 02/11/2025 Encounter Details Date Type Department Care Team (Late st Contact Info) Description 02/11/2025 Telephone [facility] [address] [place] [address] Jaziel Pan, SBE [address] [place] [address] Appointment (//) Allergies Active Allergy Reactions Criticality [...] 0 02/02/2025 Nonrheumatic aortic valve insufficiency 02/02/20 Nephrotic range proteinuria 01/30/2025 Thrombocytopenia 01/29/2025 Acquired [...] mRNA, LNP-s, No Pre serve, 2-Dose Series ([facility]) 11/04/2021,02/14/2021,01/24/2021 Covid-19, Mrna, Lnp-s, Pf, B ivalent, 30 Mcg, IM, 12 yrs and above ([facility]) 08/25/2022 Pneumococcal Conjugate Vacc, 13 Valent (Prevnar) [...] Mele Torres RN documented in this encounter Miscellaneous Notes * Telephone Encounter - Jaziel Pan OSA - 02/11/2025 8:37 AM EDT Date Scheduled: 02/11 Time: 837am Telemed Provider Special Instructions: enrollment appts scheduled - larry - scheduled with different AP to be seen sooner documented in this encounter Plan of Treatment Upcoming Encounters Date Type Department Care Team (Late st Contact Info) Description 02/11/2025 5:50 PM EDT Anticoagulation Pharmacy, [facility] [address] [facility] [place] [address] Pharmacist1, [facility] [address] [place] [address] S/P MVR (mitral valve replacement)*; Prosthetic mitral valve regurgitation, sequela 02/12/2025 9:40 AM EDT Home Visit [facility] [address] [place] [address] Dina Peck CRNP [address] [place] [address] Felisa Rojas, Community Health Professor Of Environmental Studies [address] [place] [address] 02/15/2025 3:00 PM EDT Telemedicine Cardiothoracic Surg [facility] [address] [place] [address] Barrington Carnes PAJamshidC [address] [place] [address] 02/25/2025 11:20 AM EDT Office Visit General Internal Medicine [facility] [place] [address] [place] [address] [address] Zuleima Garcia MD [address] [place] [address] [address] 03/01/2025 11:30 AM EDT Home Visit [facility] [address] [facility] [place] [address] Mya Hughes, RN [address] [facility] [place] [address] 03/10/2025 1:45 PM EDT Office Visit Cardiothoracic Surg [facility] [address] [place] [address] Jonathan House MD [address] [place] [address] 04/01/2025 9:20 AM EDT Office Visit General Internal Medicine [facility] [address] [place] [address] Zuleima Garcia MD 200 [place] [address] 04/01/2025 10:30 AM EDT Laboratory Laboratory, [facility] [phone] Mario Arredondo [facility] [address] 04/01/2025 11:00 AM EDT Office Visit Cardiology, [facility] 132 [facility] [place] [address] Daiana Anne CRNP 132 [facility] [address] 04/01/2025 11:15 AM EDT Cardiac Studies Cardiac Studies, [facility] 132 [facility] [place] [address] 04/01/2025 2:00 PM EDT Cardiac Studies Cardiac Studies, [facility] [address] [address] Scheduled Procedures Name Priority Associated Diagnoses Date/Ti me COLONOSCOPY FLEXIBLE PROXIMA L DIAGNOSTIC Recall Iron deficiency anemia due to chronic blood loss Health Maintenance Due Date Last Done Comments Fecal Occult Blood Test 1996 Sigmoidoscopy 1996 Cologuard 08/28/2021 08/28/2018 COVID-19 Vaccine ( season) 2024 10/13/2023, 08/25/2022, 04/13/2022, Additional history exists Depression Screening 09/17/2025 09/17/2024, 08/12/20 Mammogram 10/01/2025 10/01/2024, 07/27, 08/14/2023, Additional history [...] D LEVEL ONCE IN A LIFETIME-USE SMARTSET# [id number] Completed 01/12/2023, 06/03/2021, 08/16/2018 Influenza Vaccine (FLU [...] this encounter Medical Devices Implanted Type Area Laserist Device Identifier Shelf Expiration Date Model / Serial / Lot Cath Thermodilution 6fr - [id number] Implanted:Qty: 1 on 01/18/2025 by Melinda Jin MD at [facility] [employer] [id number] 06/24/2026 [id number] / / [id number] Cath Iabp Sensation 40cc Fiber - [id number] Implanted:Qty: 1 on 01/27/2025 by Nelson Mariee MD at [facility] GET[employer] : MAQUET [id number] 06/05/2027 0684-00- 0568-01U / / [id number] 29 Catheter Angio Pigtail Curve 5fr X 110cm Without Sideholes Impulse - [id number] Implanted:Qty: 1 on 01/27/2025 by Nelson Mariee MD at [facility] [employer] : INTRV CARD [id number] 08/07/2026 [id number] 1402 / / [id number] Valve Mitral Size 29 Mm Non Rotatable Porcine Bioprosthesis Mosaic - [id number] - [id number] Implanted:Qty: 1 on 02/02/2025 by Jonathan House MD at OR [facility] Left: Heart [employer] : CARDIAC SURGERY [id number] 08/11/2029 310C29 / [id number] / [id number] Suture Steel 6 B&S19 M654g - [id number] Implanted:Qty: 4 on 02/02/2025 by Jonathan House MD at OR [facility] N/A: Sternum JNJ : [employer] 08/24/2029 M654G / / [id number] Valve Heart Aortic Mag Eas 23m - [id number] - [id number] Implanted:Qty: 1 on 02/02/2025 by Jonathan House MD at OR [facility] N/A: Aorta [employer] [id number] 05/31/2028 [id number] 3MM / [id number] / [id number] Suture Steel 6 B&S19 M654g - [id number] Implanted:Qty: 3 on 02/02/2025 by Jonathan House MD at [place] [facility] N/A: Sternum JNJ [...] Discussed due to patient's condition Care Teams Drawer Maker Relationship Specialty Start Date End Date Zuleima Garcia MD 200 [place] [address] PCP - General Internal Medicine 08/28/24 documented as of this encounter
--- OUTSIDE RECORDS SUMMARY | 2025-02-13 00:31 | External Medical Summary ---
Author Name Unknown Address Unknown Organization K01:LABORATORY [facility] - [address] [place] [address] Laboratory Report Ordering Provider Test Date Status ELBERT WILKES 02/10/2025 03:50:00 Final Observation Date Value Abnormality Reference (Units ) Status Magnesium 02/10/2025 03:50:00 1.9 1.5-2.6 (m g/dL) Final Performing Location [facility]ATORY [facility] [address] [facility] [address]
--- OUTSIDE RECORDS SUMMARY | 2025-02-13 00:31 | External Medical Summary | Summary of Care ---
Author Name Unknown Organization [facility] Address [address] [place] [address] Phone [phone] Care Team Providers Care Carton Waxing Machine Operator Name Role Phone Zuleima Garcia MD Primary Care Provider + Reason for Visit * Reason Onset Date Comments Appointment 02/10/2025 Encounter Details Date Type Department Care Team (Late st Contact Info) Description 02/10/2025 Telephone [facility] [address] [place] [address] Jaziel Pan, SEB [address] [place] [address] Appointment (//) Allergies Active Allergy Reactions Criticality [...] 600+D Plus Minerals 600-800 MG-UNIT Oral Tablet ChewableIndica tions:Vitamin D deficiency Take 1 Tablet by mouth every morning. 08/12/20 24 Suspended amLODIPine Besylate 5 MG Oral Tablet (Norvasc)Indic ations:Hyperte nsion goal BP (blood pressure) < 130/80 Take 0.5 Tablets by mouth in the morning. 08/12/20 24 025 Discontinued Apixaban 5 MG Oral Tablet (Eliquis)Indic ations:Paroxys mal A-fib (HCC) Take 1 Tablet by mouth in the morning and 1 Tablet before bedtime. 180 Tablet 3 09/07/2024 11:51 AM EDT 08/12/20 24 Suspended Metoprolol Succinate ER 50 MG Oral Tablet Extended Release 24 Hour (toPROL XL) Take 1 Tablet by mouth in the morning and 1 Tablet before bedtime. 180 Tablet 3 08/17/20 24 025 Discontinued Furosemide 20 MG Oral Tablet (Lasix)Indicat ions:Acute on chronic HFrEF (heart failure with reduced ejection fraction) (HCC) Two tablets by mouth daily with an extra dose as needed for weight gain or worsening leg swelling 210 Tablet 3 11/19/20 24 025 Discontinued Digoxin 125 MCG Oral Tablet (Lanoxin) Take 1 Tablet by mouth in the morning. 90 Tablet 3 11/19/20 24 025 Discontinued documented as of this encounter (statuses [...] mRNA, LNP-s, No Pre serve, 2-Dose Series ([employer]) 11/04/2021,02/14/2021,01/24/2021 Covid-19, Mrna, Lnp-s, Pf, B ivalent, 30 Mcg, IM, 12 yrs and above ([employer]) 08/25/2022 Pneumococcal Conjugate Vacc, 13 Valent (Prevnar) [...] Telephone Encounter - Jaziel Pan OSA - 02/10/2025 9:25 AM EDT 02/10-[facility] lmom Looking at wei/ferrer 02/12 940/1010am documented in this encounter Plan of Treatment Upcoming Encounters Date Type Department Care Team (Late st Contact Info) Description 02/10/2025 5:50 PM EDT Anticoagulation Pharmacy, [facility] [address] [facility] [place] [address] Pharmacist1, [facility] [address] [place] [address] 02/15/2025 3:00 PM EDT Telemedicine [facility] [place] [address] [place] [address] Barrington Carnes PA-C [address] [place] [facility] [place] [address] 02/25/2025 11:20 AM EDT Office Visit General Internal Medicine [facility] [address] [place] [address] Zuleima Garcia MD 200 [facility] [place] [address] 03/10/2025 1:45 PM EDT Office Visit [facility] [place] [address] [facility] [place] [address] Jonathan House MD [address] [place] [facility] [place] [address] 04/01/2025 9:20 AM EDT Office Visit General Internal Medicine [facility] [address] [place] [address] [address] Zuleima Garcia MD [address] [place] [address] 04/01/2025 10:30 AM EDT Laboratory Laboratory, [address] [place] [phone] Mario Arredondo [facility] [address] [facility] [place] [address] 04/01/2025 11:00 AM EDT Office Visit Cardiology, [facility] [address] [facility] [place] [address] Daiana Anne CRNP [address] [facility] [place] [address] 04/01/2025 11:15 AM EDT Cardiac Studies Cardiac Studies, [facility] [address] 04/01/2025 2:00 PM EDT Cardiac Studies Cardiac Studies, [facility] [address] [place] [address] Scheduled Procedures Name Priority Associated Diagnoses Date/Ti [...] D LEVEL ONCE IN A LIFETIME-USE SMARTSET# [id number] Completed 01/12/2023, 06/03/2021, 08/16/2018 Influenza Vaccine (FLU [...] this encounter Medical Devices Implanted Type Area Metal Worker Device Identifier Shelf Expiration Date Model / Serial / Lot Cath Thermodilution 6fr - [id number] Implanted:Qty: 1 on 01/18/2025 by Melinda Jin MD [place] [facility] [employer] [id number] 06/24/2026 [id number] / / [id number] Cath Iabp Sensation 40cc Fiber - [id number] Implanted:Qty: 1 on 01/27/2025 by Nelson Mariee MD [place] [facility] [employer] : MAQUET [id number] 06/05/2027 0684-00- 0568-01U / / [id number] 29 Catheter Angio Pigtail Curve 5fr X 110cm Without Sideholes Impulse - [id number] Implanted:Qty: 1 on 01/27/2025 by Nelson Mariee MD at [facility] [employer] : INTRV CARD [id number] 08/07/2026 [id number] 1402 / / [id number] Valve Mitral Size 29 Mm Non Rotatable Porcine Bioprosthesis Mosaic - [id number] - [id number] Implanted:Qty: 1 on 02/02/2025 by Jonathan House MD [place] [facility] Left: Heart [employer] : CARDIAC SURGERY [id number] 08/11/2029 [id number] / [id number] / [id number] Suture Steel 6 B&S19 M654g - [id number] Implanted:Qty: 4 on 02/02/2025 by Jonathan House MD [place] [facility] N/A: Sternum JNJ : [employer] 08/24/2029 M654G / / [id number] Valve Heart Aortic Mag Eas 23m - [id number] - [id number] Implanted:Qty: 1 on 02/02/2025 by Jonathan House MD at [place] [facility] N/A: Aorta [employer] [id number] 05/31/2028 [id number] 3MM / [id number] / [id number] Suture Steel 6 B&S19 M654g - [id number] Implanted:Qty: 3 on 02/02/2025 by Jonathan House MD [place] [facility] N/A: Sternum JNJ : [employer] 02/22/2029 [...] Discussed due to patient's condition Care Teams Carton Waxing Machine Operator Relationship Specialty Start Date End Date Zuleima Garcia MD 200 [facility] [place] [address] PCP - General Internal Medicine 08/28/24 documented as of this encounter
--- OUTSIDE RECORDS SUMMARY | 2025-02-13 00:31 | External Medical Summary | Summary of Care ---
Author Name Unknown Organization [facility] Address [address] [place] [address] Phone [phone] Care Team Providers Care National Service Officer Name Role Phone Zuleima Garcia MD Primary Care Provider + Reason for Visit * Reason Comments Dosage Adjustment Via Phone (anticoag Cl inic) Encounter Details Date Type Department Care Team (Latest Contact Info) Description 02/10/2025 5:50 PM EDT Anticoagulation Pharmacy, [facility] [address] [place] [address] Pharmacist1, [facility] [address] [place] [address] S/P MVR (mitral valve replacement)*; Prosthetic mitral valve regurgitation, sequela Allergies Active Allergy Reactions Criticality Noted Date [...] mRNA, LNP-s, No Pre serve, 2-Dose Series ([employer]) 11/04/2021,02/14/2021,01/24/2021 Covid-19, Mrna, Lnp-s, Pf, B ivalent, 30 Mcg, IM, 12 yrs and above ([employer]) 08/25/2022 Pneumococcal Conjugate Vacc, 13 Valent (Prevnar) [...] Mele Davis RN documented in this encounter Progress Notes * Frederick Brooks, CIRILO - 02/10/2025 1:51 PM EDT Images from the original note were not included. Patient Phone Numbers [email or web address] Patient is being discharged from [facility] 02/10 following admission 02/02 for MVR surgery. Received Warfarin 2mg 02/08, 02/09 Anticoagulation Therapy Goals Valves: Bioprosthetic AVR/MVR (Tissue) Valve (2 - 3) x 3 months Anticipated Duration of Therapy: 3 Months Prior to Admission Management Anticoagulation Managed By: Anticoagulation Clinic Historical Warfarin Details Anticoagulation Episode Summary Current INR goal: 2.0-3.0 TTR: -- Next INR check: -- INR from last check: 1.6 (02/03/2025) Most recent INR: 1.1 (02/08/2025) Weekly max warfarin dose: -- Target end date: 05/05/2025 INR check location: -- Preferred lab: -- Send INR reminders to: -- Indications S/P MVR (mitral valve replacement) [Z95.2] Prosthetic mitral valve regurgitation sequela [T82.03XS] / Comments: 3 month duration Anticoagulation Care Providers Provider Role Specialty Phone number Darya Coto CRNP Referring Nurse Practitioner [phone] Labs INR Date/Time Value Ref Range Status 02/08/2025 03:41 AM 1.1 0.8 - 1.2 Final 02/07/2025 04:02 AM 1.2 0.8 - 1.2 Final 02/06/2025 04:12 AM 1.2 0.8 - 1.2 Final HGB Date/Time Value Ref Range Status 02/08/2025 03:41 AM 10.0 (L) 12.0 - 15.3 g/dL Final HCT Date/Time Value Ref Range Status 02/08/2025 03:41 AM 31.3 (L) 36.0 - 45.2 % Final PLT Date/Time Value Ref Range Status 02/08/2025 03:41 AM 68 (L) 140 - 400 K/uL Final Objective Warfarin Administrations (last 720 hours) None Assessment & Plan Assessment Dietary Assessment: Minimal/decreased PO intake Today's INR : Subtherapeutic Does the patient have any medication interactions: Yes Please comment: ASA, Amiodarone 200 mg BID Are there bleeding concerns with the patient: Yes Does the patient have any upcoming procedures: No Plan Warfarin Plan: Give Warfarin Specify Warfarin Dose: 2 mg Is the patient receiving a Bridging Agent: No Warfarin Patient Education : Incomplete Warfarin Plan As of 02/10/2025 Full warfarin instructions: 2 mg every day Next INR check: -- INR as ordered by discharging physician. Frederick Reynolds RPh, CACP Clinical Pharmacist Medication Therapy Management [facility] 02/10/2025, 1:51 PM documented in this encounter Plan of Treatment Upcoming Encounters Date Type Department Care Team (Late st Contact Info) Description 02/11/2025 5:50 PM EDT Anticoagulation Pharmacy, [facility] 200 [facility] [place] [address] Pharmacist1, [facility] 200 [facility] [place] [address] 02/15/2025 3:00 PM EDT Telemedicine Cardi[facility]acic [facility] [place] [address] [place] [address] Barrington Carnes PA-C [address] [place] [address] 02/25/2025 11:20 AM EDT Office Visit General Internal Medicine [facility] 200 [facility] [place] [address] Zuleima Garcia MD 200 [facility] [place] [address] 03/10/2025 1:45 PM EDT Office Visit Cardiothoracic Surg [facility] [place] [address] [place] [address] Jonathan House MD [address] [place] [address] 04/01/2025 9:20 AM EDT Office Visit General Internal Medicine [facility] 200 [facility] [place], [place] [address] Zuleima Garcia MD [address] [place] [address] 04/01/2025 10:30 AM EDT Laboratory Laboratory, [facility] 132 [place] [phone] [facility] 132 [place] [address] 04/01/2025 11:00 AM EDT Office Visit Cardiology, [facility] 132 [place] [address] Daiana Anne CRNP 132 [place] [address] 04/01/2025 11:15 AM EDT Cardiac Studies Cardiac Studies, [facility] 132 [place] [address] 04/01/2025 2:00 PM EDT Cardiac Studies Cardiac Studies, [facility] [address] [place] [address] Scheduled Procedures Name Priority Associated Diagnoses Date/Ti [...] D LEVEL ONCE IN A LIFETIME-USE SMARTSET# 46914 Completed 01/12/2023, 06/03/2021, 08/16/2018 Influenza Vaccine (FLU [...] this encounter Medical Devices Implanted Type Area Batch Trucker Device Identifier Shelf Expiration Date Model / Serial / Lot Cath Thermodilution 6fr - [id number] Implanted:Qty: 1 on 01/18/2025 by Melinda Jin MD at [facility] [employer] [id number] 06/24/2026 [id number] / / [id number] Cath Iabp Sensation 40cc Fiber - [id number] Implanted:Qty: 1 on 01/27/2025 by Nelson Mariee MD at [facility] [employer] : MAQUET [id number] 06/05/2027 0684-00- 0568-01U / / [id number] 29 Catheter Angio Pigtail Curve 5fr X 110cm Without Sideholes Impulse - [id number] Implanted:Qty: 1 on 01/27/2025 by Nelson Mariee MD at [facility] [employer] : INTRV CARD [id number] 08/07/2026 [id number] 1402 / / [id number] Valve Mitral Size 29 Mm Non Rotatable Porcine Bioprosthesis Mosaic - [id number] - [id number] Implanted:Qty: 1 on 02/02/2025 by Jonathan House MD at [place] [facility] Left: Heart [employer] : CARDIAC SURGERY [id number] 08/11/2029 310C29 / [id number] / [id number] Suture Steel 6 B&S19 M654g - [id number] Implanted:Qty: 4 on 02/02/2025 by Jonathan House MD at [place] [facility] N/A: Sternum JNJ : [employer] 08/24/2029 M654G / / [id number] Valve Heart Aortic Mag Eas 23m - [id number] - [id number] Implanted:Qty: 1 on 02/02/2025 by Jonathan House MD at [place] [facility] N/A: Aorta [employer]ARYL [id number] 05/31/2028 [id number] 3MM / [id number] / [id number] Suture Steel 6 B&S19 M654g - [id number] Implanted:Qty: 3 on 02/02/2025 by Jonathan House MD at [place] [facility] N/A: Sternum JNJ : [employer] 02/22/2029 M654G / / [id number] documented as of this encounter Visit Diagnoses Diagnosis S/P MVR (mitral valve replacement)- Primary Heart valve replaced by other means Prosthetic mitral valve regurgitation, sequela documented in this encounter Advance Directives * [...] Discussed due to patient's condition Care Teams National Service Officer Relationship Specialty Start Date End Date Zuleima Garcia MD 200 [place] [address] PCP - General Internal Medicine 08/28/24 documented as of this encounter
--- OUTSIDE RECORDS SUMMARY | 2025-02-13 00:31 | External Medical Summary ---
Author Name Unknown Address Unknown Organization [id number]:[facility] [place] [address] [place] [address] Laboratory Report Ordering Provider Test Date Status ELAINA DIEZ 02/10/2025 03:50:00 Final Warfarin Therapy
INR: 2 .0-3.0 conventional anticoagulation
INR: 2.5- 3.5 high intensity anticoagulation Observation Date Value Abnormality Reference (Units ) Status PT 02/10/2025 03:50:00 14.8 11.6-15.2 (seconds) Final INR 02/10/2025 03:50:00 1.1 0.8-1.2 Final Performing Location LAB[facility] - [address] [place] [address]
--- OUTSIDE RECORDS SUMMARY | 2025-02-13 00:31 | External Medical Summary ---
Author Name Unknown Address Unknown Organization K01:[facility] [place] [address] [facility] [address] Laboratory Report Ordering Provider Test Date Status ELBERT WILKES 02/10/2025 03:50:00 Final Observation Date Value Abnormality Reference (Units ) Status SYNC LEUKOCYTES IN BLOOD BY AUTOMATED COUNT 02/10/2025 03:50:00 7.60 4.00-10.80 (K/uL) Final Segs 02/10/2025 03:50:00 73.8 40.0-75.0 (%) Final Lymphs % 02/10/2025 03:50:00 8.4 Below low normal 18.0-42.0 (%) Final Monos 02/10/2025 03:50:00 13.2 Above high normal 1.0-11.0 (%) Final Eosinophils 02/10/2025 03:50:00 2.8 0.0-6.0 (%) Final Basos 02/10/2025 03:50:00 0.4 0.0-2.0 (%) Final Immature Granulocyte, Percent 02/10/2025 03:50:00 1.4 0.0-2.0 (%) Final Absolute Segs 02/10/2025 03:50:00 5.61 1.80-7.70 (K/uL) Final Lymphs, absolute 02/10/2025 03:50:00 0.64 Below low normal 1.00-4.80 (K/ul) Final Monos, Abs 02/10/2025 03:50:00 1.00 0.00-1.10 (K/uL) Final Eos, Abs 02/10/2025 03:50:00 0.21 0.00-0.70 (K/uL) Final Basos, Abs 02/10/2025 03:50:00 0.03 0.00-0.20 (K/uL) Final Immature Granulocytes, Number 02/10/2025 03:50:00 0.11 0.00-0.20 (K/uL) Final Performing Location [facility] [place] [address]
--- OUTSIDE RECORDS SUMMARY | 2025-02-13 00:31 | External Medical Summary | Summary of Care ---
Author Name Unknown Organization [facility] Address [address] [place] [address] Phone [phone] Care Team Providers Care Diesel Locomotive Firer Name Role Phone Zuleima Garcia MD Primary Care Provider + Reason for Visit * Reason Onset Date Comments Appointment 02/10/2025 Encounter Details Date Type Department Care Team (Late st Contact Info) Description 02/10/2025 Telephone Access Center, [address] *DO NOT REMOVE THIS DEPARTMENT* [place] REBOLLAR [phone] Services, Scheduling [address] [place] [address] Appointment Allergies Active Allergy Reactions Criticality Noted Date [...] mouth in the morning. In the morning.. 09/19/202 1 Active Magnesium 100 MG Oral Tablet [...] 4 Active Apixaban 5 MG Oral Tablet (Eliquis)Indic ations:Paroxys [...] traMADol HCl 25 MG Oral Tablet Take 50 mg by mouth every 6 hours as needed for Pain, Moderate. 10 Tablet 5 02/11/20 25 Discontinued documented as of this encounter (statuses [...] mRNA, LNP-s, No Pre serve, 2-Dose Series ([employer]) 11/04/2021,02/14/2021,01/24/2021 Covid-19, Mrna, Lnp-s, Pf, B ivalent, 30 Mcg, IM, 12 yrs and above ([employer]) 08/25/2022 Pneumococcal Conjugate Vacc, 13 Valent (Prevnar) [...] encounter Miscellaneous Notes * Telephone Encounter - Imelda Tijerina OSA - 02/10/2025 10:54 AM EDT Good morning, We received a 1 wk HD request for this pt. Please review and advise. Thank you! documented in this encounter Plan of Treatment Upcoming Encounters Date Type Department Care Team (Late st Contact Info) Description 02/10/2025 5:50 PM EDT Anticoagulation Pharmacy, [facility] 200 [facility] [place] [address] Pharmacist1, [facility] 200 [facility] [place] [address] S/P MVR (mitral valve replacement)*; Prosthetic mitral valve regurgitation, sequela 02/15/2025 3:00 PM EDT Telemedicine Cardiothoracic Surg [facility] [place] [address] [place] [address] Barrington Carnes PA-C [address] [place] [address] 02/25/2025 11:20 AM EDT Office Visit General Internal Medicine [facility] [address] [place] [address] Zuleima Garcia MD 200 [facility] [place] [address] 03/10/2025 1:45 PM EDT Office Visit Cardiothoracic Surg [facility] [place] [address] [place] [address] Jonathan House MD [address] [place] [address] 04/01/2025 9:20 AM EDT Office Visit General Internal Medicine [facility] [place] [address] [place] [address] Zuleima Garcia MD 200 [facility] [place] [address] 04/01/2025 10:30 AM EDT Laboratory Laboratory, [facility] 132 [place] [address] ArredondoMario gallardo [facility] 132 [facility] [place] [address] 04/01/2025 11:00 AM EDT Office Visit Cardiology, [facility] 132 [facility] [place] [address] Daiana Anne CRNP 132 [facility] [place] [address] 04/01/2025 11:15 AM EDT Cardiac Studies Cardiac Studies, [facility] 132 [facility] [place] [address] 04/01/2025 2:00 PM EDT Cardiac Studies Cardiac Studies, [facility] 132 [facility] [place] [address] Scheduled Procedures Name Priority Associated Diagnoses Date/Ti [...] D LEVEL ONCE IN A LIFETIME-USE SMARTSET# 50401 Completed 01/12/2023, 06/03/2021, 08/16/2018 Influenza Vaccine (FLU [...] this encounter Medical Devices Implanted Type Area Corn Husker Machine Operator Device Identifier Shelf Expiration Date Model / Serial / Lot Cath Thermodilution 6fr - [id number] Implanted:Qty: 1 on 01/18/2025 by Melinda Jin MD [place] [facility] [employer] [id number] 06/24/2026 [id number] / / [id number] Cath Iabp Sensation 40cc Fiber - [id number] Implanted:Qty: 1 on 01/27/2025 by Nelson Mariee MD at [facility] [employer] : MAQUET [id number] 06/05/2027 0684-00- 0568-01U / / [id number] 29 Catheter Angio Pigtail Curve 5fr X 110cm Without Sideholes Impulse - [id number] Implanted:Qty: 1 on 01/27/2025 by Nelson Mariee MD at [facility] Doctor kinetic : INTRV CARD [id number] 08/07/2026 [id number] 1402 / / [id number] Valve Mitral Size 29 Mm Non Rotatable Porcine Bioprosthesis Mosaic - [id number] - [id number] Implanted:Qty: 1 on 02/02/2025 by Jonathan House MD [place] [facility] Left: Heart [employer] : CARDIAC SURGERY [id number] 08/11/2029 310C29 / [id number] / [id number] Suture Steel 6 B&S19 M654g - [id number] Implanted:Qty: 4 on 02/02/2025 by Jonathan House MD [place] [facility] N/A: Sternum JNJ : [employer] 08/24/2029 M654G / / [id number] Valve Heart Aortic Mag Eas 23m - [id number] - [id number] Implanted:Qty: 1 on 02/02/2025 by Jonathan House MD [place] [facility] N/A: Aorta [employer] [id number] 05/31/2028 [id number] 3MM / [id number] / [id number] Suture Steel 6 B&S19 M654g - [id number] Implanted:Qty: 3 on 02/02/2025 by Jonathan House MD [place] [facility] N/A: Sternum JNJ : [...] Discussed due to patient's condition Care Teams Diesel Locomotive Firer Relationship Specialty Start Date End Date Zuleima Garcia MD 200 [facility] [place] [address] PCP - General Internal Medicine 08/28/24 documented as of this encounter
--- OUTSIDE RECORDS SUMMARY | 2025-02-13 00:31 | External Medical Summary | Summary of Care ---
Author Name Unknown Organization [facility] Address [address] [place] [address] Phone [phone] Care Team Providers Care Loose Hand Packer Name Role Phone Zuleima Garcia MD Primary Care Provider + Reason for Visit * Reason Comments Dosage Adjustment Via Phone (anticoag Cl inic) Encounter Details Date Type Department Care Team (Latest Contact Info) Description 02/11/2025 5:50 PM EDT Anticoagulation Pharmacy, [facility] [address] [place] [address] Pharmacist1, [facility] [address] [place] [address] S/P MVR (mitral valve replacement)*; Prosthetic mitral [...] mRNA, LNP-s, No Pre serve, 2-Dose Series ([employer]) 11/04/2021,02/14/2021,01/24/2021 Covid-19, Mrna, Lnp-s, Pf, B ivalent, 30 Mcg, IM, 12 yrs and above ([facility]) 08/25/2022 Pneumococcal Conjugate Vacc, 13 Valent (Prevnar) [...] Mele Torres RN documented in this encounter Progress Notes * Stephanie Mcdowell [facility] - 02/11/2025 8:11 AM EDT Patient admitted to [facility] 01/27-02/10 for MVR. She was initially placed on warfarin, but Eliquis was resumed at discharge (she took this prior to admission). No follow-up needed with [facility] clinic. Stephanie Mcdowell RPh, PharmD, BCACP Clinical Pharmacist - [facility] 02/11/2025, 8:19 AM documented in this encounter Plan of Treatment Upcoming Encounters Date Type Department Care Team (Late st Contact Info) Description 02/12/2025 9:40 AM EDT Home Visit [place], [facility] [address] [place] [address] Dina Peck CRNP [address] [place] [address] Felisa Rojas, Community Health Foreign Languages Department Chair [address] [place] [address] 02/15/2025 3:00 PM EDT Telemedicine Cardiothoracic Surg [facility] [address] [place] [address] Barrington Carnes PA-C [address] [place] [address] 02/25/2025 11:20 AM EDT Office Visit General Internal Medicine [facility] [address] [place] [address] Zuleima Garcia MD [address] [place] [address] 03/01/2025 11:30 AM EDT Home Visit [facility] at [facility] 132 [facility] [place] [address] Mya Hughes, RN 132 [place] [address] 03/10/2025 1:45 PM EDT Office Visit Cardiothoracic Surg [facility] [address] [place] [address] Jonathan House MD [address] [place] [address] 04/01/2025 9:20 AM EDT Office Visit General Internal Medicine [facility] 200 [facility] [place] [address] Zuleima Garcia MD 200 [facility] [place] [address] 04/01/2025 10:30 AM EDT Laboratory Laboratory, [facility] [phone] Mario Arredondo [facility] [address] 04/01/2025 11:00 AM EDT Office Visit Cardiology, [facility] [place] [address] Daiana Anne CRNP [facility] [address] 04/01/2025 11:15 AM EDT Cardiac Studies Cardiac Studies, [facility] 132 [facility] [place] [address] 04/01/2025 2:00 PM EDT Cardiac Studies Cardiac Studies, [facility] 132 [facility] [place] [address] Scheduled Procedures Name Priority Associated Diagnoses Date/Ti [...] D LEVEL ONCE IN A LIFETIME-USE SMARTSET# [id number] Completed 01/12/2023, 06/03/2021, 08/16/2018 Influenza Vaccine (FLU [...] this encounter Medical Devices Implanted Type Area Leaf Sticker Device Identifier Shelf Expiration Date Model / Serial / Lot Cath Thermodilution 6fr - [id number] Implanted:Qty: 1 on 01/18/2025 by Melinda Jin MD at [facility] [employer] [id number] 06/24/2026 [id number] / / [id number] Cath Iabp Sensation 40cc Fiber - [id number] Implanted:Qty: 1 on 01/27/2025 by Nelson Mariee MD at [facility] [employer] : MAQUET [id number] 06/05/2027 0684-00- 0568-01U / / [id number] Catheter Angio Pigtail Curve 5fr X 110cm Without Sideholes Impulse - [id number] Implanted:Qty: 1 on 01/27/2025 by Nelson Mariee MD at [facility] [employer] : Sanera CARD [id number] 08/07/2026 [id number] / / [id number] Valve Mitral Size 29 Mm Non Rotatable Porcine Bioprosthesis Mosaic - [id number] - [id number] Implanted:Qty: 1 on 02/02/2025 by Jonathan House MD at OR [facility] Left: Heart [employer] : CARDIAC SURGERY [id number] 08/11/2029 [id number] / [id number] / [id number] Suture Steel 6 B&S19 M654g - [id number] Implanted:Qty: 4 on 02/02/2025 by Jonathan House MD at OR [facility] N/A: Sternum JNJ : [employer] 08/24/2029 [id number] / / [id number] Valve Heart Aortic Mag Eas 23m - [id number] - [id number] Implanted:Qty: 1 on 02/02/2025 by Jonathan House MD at OR [facility] N/A: Aorta [employer] [id number] 05/31/2028 [id number] 3MM / [id number] / [id number] Suture Steel 6 B&S19 M654g - [id number] Implanted:Qty: 3 on 02/02/2025 by Jonathan House MD at OR [facility] N/A: Sternum JNJ : [employer] 02/22/2029 [...] Discussed due to patient's condition Care Teams Loose Hand Packer Relationship Specialty Start Date End Date Zuleima Garcia MD 200 [facility] [place] [address] PCP - General Internal Medicine 08/28/24 documented as of this encounter
--- OUTSIDE RECORDS SUMMARY | 2025-02-13 00:31 | External Medical Summary ---
Author Name Unknown Address Unknown Organization [id number]:[facility]ATORY [facility] - [address] [place] [address] Laboratory Report Ordering Provider Test Date Status ELBERT WILKES 02/10/2025 03:50:00 Final Observation Date Value Abnormality Reference (Units ) Status WBC, Total 02/10/2025 03:50:00 7.60 4.00-10.80 (K/uL) Final RBC 02/10/2025 03:50:00 3.15 3.85-5.15 (M/uL) Final Hemoglobin 02/10/2025 03:50:00 10.0 Below low normal 12.0-15.3 (g/dL) Final HCT 02/10/2025 03:50:00 31.9 Below low normal 36.0-45.2 (%) Final MCV 02/10/2025 03:50:00 101.3 81.5-97.5 (fL) Final MCH 02/10/2025 03:50:00 31.7 27.0-34.0 (pg) Final MCHC 02/10/2025 03:50:00 31.3 32.0-36.0 (g/dL) Final RDW 02/10/2025 03:50:00 18.8 11.5-15.5 (%) Final Platelets 02/10/2025 03:50:00 139 Below low normal 140-400 (K/uL) Final MPV 02/10/2025 03:50:00 10.1 6.6-11.1 (fL) Final Nucleated erythrocytes/100 leukocytes [Ratio] in Blood by Automated count 02/10/2025 03:50:00 0 <=0 (/100 WBCs) Final Performing Location [facility] [place] [address] [place] [address]
--- OUTSIDE RECORDS SUMMARY | 2025-02-13 00:32 | External Medical Summary ---
Author Name Unknown Address Unknown Organization [id number]:LABORATORY [facility] - [facility] [address] [facility] [address] Laboratory Report Ordering Provider Test Date Status ELBERT WILKES 02/08/2025 03:41:00 Final Observation Date Value Abnormality Reference (Units ) Status BUN 02/08/2025 03:41:00 45 Above high normal 6-20 (mg/dL) Final Creatinine 02/08/2025 03:41:00 2.4 Above high normal 0.5-1.0 (mg/dL) Final Glomerular filtration rate/1.73 sq M.predicted [Volume Rate/Area] in Serum, Plasma or Blood by Creatinine-based formula (CKD-EPI) 02/08/2025 03:41:00 21 Below low normal >=60 (mL/min) Final eGFR is calculated based on the CKD-EPI 2020 equation. Sodium 02/08/2025 03:41:00 135 135-146 (m mol/L) Final Potassium 02/08/2025 03:41:00 3.3 Below low normal 3.5 -5.1 (mmol/L) Final Cl 02/08/2025 03:41:00 99 98-107 (mm ol/L) Final CO2 02/08/2025 03:41:00 23 22-32 (mmo l/L) Final Anion gap 02/08/2025 03:41:00 13 7-15 (mmol /L) Final Glucose 02/08/2025 03:41:00 94 70-120 (mg /dL) Final Calcium 02/08/2025 03:41:00 8.3 Below low normal 8.4 -10.2 (mg/dL) Final Performing Location LABORATORY [facility] - [facility] [address] [place] [address]
--- OUTSIDE RECORDS SUMMARY | 2025-02-13 00:32 | External Medical Summary ---
Author Name Unknown Address Unknown Organization K01:LABORATORY [facility] - [address] [place] [address] Laboratory Report Ordering Provider Test Date Status ELBERT WILKES 02/08/2025 03:41:00 Final Observation Date Value Abnormality Reference (Units ) Status Magnesium 02/08/2025 03:41:00 2.0 1.5-2.6 (m g/dL) Final Performing Location LABORATORY [facility] - [address] [place] [address]
--- OUTSIDE RECORDS SUMMARY | 2025-02-13 00:32 | External Medical Summary ---
Author Name Unknown Address Unknown Organization K01:LABORATORY [facility] - [address] [place] [address] Laboratory Report Ordering Provider Test Date Status ELBERT WILKES 02/08/2025 03:41:00 Final Observation Date Value Abnormality Reference (Units ) Status WBC, Total 02/08/2025 03:41:00 8.04 4.00-10.80 (K/uL) Final RBC 02/08/2025 03:41:00 3.14 3.85-5.15 (M/uL) Final Hemoglobin 02/08/2025 03:41:00 10.0 Below low normal 12.0-15.3 (g/dL) Final HCT 02/08/2025 03:41:00 31.3 Below low normal 36.0-45.2 (%) Final MCV 02/08/2025 03:41:00 99.7 81.5-97.5 (fL) Final MCH 02/08/2025 03:41:00 31.8 27.0-34.0 (pg) Final MCHC 02/08/2025 03:41:00 31.9 32.0-36.0 (g/dL) Final RDW 02/08/2025 03:41:00 19.9 11.5-15.5 (%) Final Platelets 02/08/2025 03:41:00 68 Below low normal 140-400 (K/uL) Final MPV 02/08/2025 03:41:00 11.1 6.6-11.1 (fL) Final Nucleated erythrocytes/100 leukocytes [Ratio] in Blood by Automated count 02/08/2025 03:41:00 0 <=0 (/100 WBCs) Final Performing Location LABORATORY [facility] - [address] [place] [address]
--- OUTSIDE RECORDS SUMMARY | 2025-02-13 00:32 | External Medical Summary | Summary of Care ---
Author Name Unknown Organization [facility] Address [address] [place] [address] Phone [phone] Care Team Providers Care Waterproofing Mixer Name Role Phone Zuleima Garcia MD Primary Care Provider + Encounter Details Date Type Department Care Team (Late st Contact Info) Description 02/08/2025 Documentation [facility] [place] [address] [place] [address] Frieda Caal, ALFRED [address] [place] [address] Allergies Active Allergy Reactions Criticality Noted Date Comments Ezetimibe Low 11/28/2023 General malaise or feeling unwell Famotidine Diarrhea Low 09/13/2024 Prednisone Muscle pain Medium 07/15/2024 Pantoprazole Hives Medium 02/07/2022 GI upset Rosuvastatin Medium 11/28/2023 Muscle aches/pains, fatigue Statins Medium 11/01/2022 myalgia Torsemide Low 08/12/2024 GI symptoms documented as of this encounter (statuses as of 02/08/2025) Medications Ferrous Sulfate 325 (65 Fe) MG [...] as of this encounter (statuses as of 02/08/2025) Active Problems Problem Noted Date Diagnosed Date [...] as of this encounter (statuses as of 02/08/2025) Resolved Problems Problem Noted Date Diagnosed Date Resolved Date HTN, goal below 130/80 08/12/201808/16 documented as of this encounter (statuses as of 02/08/2025) Immunizations Name Administration Dates Next Due COVID-19 mRNA, LNP-s, No Pre serve, 2-Dose Series ([facility]) 11/04/2021,02/14/2021,01/24/2021 Covid-19, Mrna, Lnp-s, Pf, B ivalent, 30 Mcg, IM, 12 yrs and above ([facility]) 08/25/2022 Pneumococcal Conjugate Vacc, 13 Valent (Prevnar) [...] documented in this encounter Progress Notes * Frieda Caal LSW - 02/08/2025 11:45 AM EDT [facility] Care Line Haul Driver Subjective: SW met with patient and MIKAEL at bedside to discuss program. They are familiar with [facility] since they are followed by the cardiology CM. They are agreeable to GA at discharge. SW to continue to follow for dc plans. Care Line Haul Driver Documentation The patient's case been reviewed with: Interdisciplinary Team, Health Care Team documented in this encounter Plan of Treatment Upcoming Encounters Date Type Department Care Team (Late st Contact Info) Description 02/08/2025 5:50 PM EDT Anticoagulation Pharmacy, [facility] [address] [facility] [place] [address] [address], [facility] [address] [place] [address] S/P MVR (mitral valve replacement)*; Prosthetic mitral valve regurgitation, sequela 02/10/2025 5:50 PM EDT Anticoagulation Pharmacy, [facility] [address] [place] [address] [address] Pharmacist1, [facility] [address] [place] [address] 04/01/2025 9:20 AM EDT Office Visit General Internal Medicine [facility] [address] [place] [address] Zuleima Garcia MD 200 [facility] [place] [address] 04/01/2025 10:30 AM EDT Laboratory Laboratory, [facility] Arredondo, [place] [address] [place] [id number] Mario Arredondo 132 [facility] [place] [address] 04/01/2025 11:00 AM EDT Office Visit Cardiology, [facility] 132 [facility] [place] [address] Daiana Anne CRNP 132 [facility] [place] [address] 04/01/2025 11:15 AM EDT Cardiac Studies Cardiac Studies, [facility] 132 [facility] [place] [address] 04/01/2025 2:00 PM EDT Cardiac Studies Cardiac Studies, [facility] 132 [facility] [place] [address] Scheduled Procedures Name Priority Associated Diagnoses Date/Ti [...] 10/01/2024, 07/27, 08/14/2023, Additional history exists GFR 02/08/2026 02/08/2025, 01/23, 02/06/2025, Additional history exists DXA Scan 09/17/2026 09/17/2024 Albumin/Creatinine Ratio 01/29/2028 025, 11/03/2022, 06/21/2020 DTap/Tdap Vaccines (2 - Td or Tdap) 05/10/2028 05/10/2018 Lipid Panel 01/19/2030 01/19/2025, 02/23, 08/24/2023, Additional history exists Colonoscopy 08/07/2031 08/07/2021, 08/07/2021 Colorectal Cancer Screening 08/07/2031 Pneumococcal Vaccine: 50+ Years Completed 05/10/2018, 05/10/2018 Zoster Vaccines Completed 06/09/2018, 05/10/2018 VITAMIN D LEVEL ONCE IN A LIFETIME-USE SMARTSET# [id number] Completed 01/12/2023, 06/03/2021, 08/16/2018 Influenza Vaccine (FLU [...] this encounter Medical Devices Implanted Type Area Licensed Customs Broker Device Identifier Shelf Expiration Date Model / Serial / Lot Cath Thermodilution 6fr - [id number] Implanted:Qty: 1 on 01/18/2025 by Melinda Jin MD at [facility] [employer] [id number] 06/24/2026 [id number] / / [id number] Cath Iabp Sensation 40cc Fiber - [id number] Implanted:Qty: 1 on 01/27/2025 by Nelson Mariee MD at [facility] [employer] : MAQUECaroline [id number] 06/05/2027 0684-00- 0568-01U / / [id number] 29 Catheter Angio Pigtail Curve 5fr X 110cm Without Sideholes Impulse - [id number] Implanted:Qty: 1 on 01/27/2025 by Nelson Mariee MD at [facility] [employer] : INTRV CARD [id number] 08/07/2026 [id number] 1402 / / [id number] Valve Mitral Size 29 Mm Non Rotatable Porcine Bioprosthesis [facility] - [id number] - [id number] Implanted:Qty: 1 on 02/02/2025 by Jonathan House MD at OR [facility] Left: Heart [employer] : CARDIAC SURGERY [id number] 08/11/2029 [id number] / [id number] / [id number] Suture Steel 6 B&S19 M654g - [id number] Implanted:Qty: 4 on 02/02/2025 by Jonathan House MD at OR [facility] N/A: Sternum JNJ : [employer] 08/24/2029 M654G / / [id number] Valve Heart Aortic Mag Eas 23m - [id number] - [id number] Implanted:Qty: 1 on 02/02/2025 by Jonathan House MD at OR [facility] N/A: Aorta [employer] [id number] 05/31/2028 [id number] 3MM / [id number] / [id number] Suture Steel 6 B&S19 M654g - [id number] Implanted:Qty: 3 on 02/02/2025 by Jonathan House MD at OR [facility] N/A: Sternum JNJ : [employer] 02/22/2029 [...] Discussed due to patient's condition Care Teams Waterproofing Mixer Relationship Specialty Start Date End Date Zuleima Garcia MD [address] [place] [address], [place] [address] PCP - General Internal Medicine 08/28/24 documented as of this encounter
--- OUTSIDE RECORDS SUMMARY | 2025-02-13 00:32 | External Medical Summary ---
Author Name Unknown Address Unknown Organization K01:LAB[facility]ATORY [facility] - [address] [facility] [address] Laboratory Report Ordering Provider Test Date Status ELBERT WILKES 02/09/2025 04:30:00 Final Observation Date Value Abnormality Reference (Units ) Status SYNC LEUKOCYTES IN BLOOD BY AUTOMATED COUNT 02/09/2025 04:30:00 7.73 4.00-10.80 (K/uL) Final Segs 02/09/2025 04:30:00 75.6 Above high normal 40.0-75.0 (%) Final Lymphs % 02/09/2025 04:30:00 7.2 Below low normal 18.0-42.0 (%) Final Monos 02/09/2025 04:30:00 12.9 Above high normal 1.0-11.0 (%) Final Eosinophils 02/09/2025 04:30:00 3.0 0.0-6.0 (%) Final Basos 02/09/2025 04:30:00 0.3 0.0-2.0 (%) Final Immature Granulocyte, Percent 02/09/2025 04:30:00 1.0 0.0-2.0 (%) Final Absolute Segs 02/09/2025 04:30:00 5.84 1.80-7.70 (K/uL) Final Lymphs, absolute 02/09/2025 04:30:00 0.56 Below low normal 1.00-4.80 (K/ul) Final Monos, Abs 02/09/2025 04:30:00 1.00 0.00-1.10 (K/uL) Final Eos, Abs 02/09/2025 04:30:00 0.23 0.00-0.70 (K/uL) Final Basos, Abs 02/09/2025 04:30:00 0.02 0.00-0.20 (K/uL) Final Immature Granulocytes, Number 02/09/2025 04:30:00 0.08 0.00-0.20 (K/uL) Final Performing Location LABOR[facility]ORY [facility] - [facility] [address] [place] [address]
--- OUTSIDE RECORDS SUMMARY | 2025-02-13 00:32 | External Medical Summary ---
Author Name Unknown Address Unknown Organization K01:[facility] [place] [facility] [address] [facility] [address] Laboratory Report Ordering Provider Test Date Status ELBERT WILKES 02/09/2025 04:30:00 Final Observation Date Value Abnormality Reference (Units ) Status BUN 02/09/2025 04:30:00 39 Above high normal 6-20 (mg/dL) Final Creatinine 02/09/2025 04:30:00 2.0 Above high normal 0.5-1.0 (mg/dL) Final Glomerular filtration rate/1.73 sq M.predicted [Volume Rate/Area] in Serum, Plasma or Blood by Creatinine-based formula (CKD-EPI) 02/09/2025 04:30:00 26 Below low normal >=60 (mL/min) Final eGFR is calculated based on the CKD-EPI 2020 equation. Sodium 02/09/2025 04:30:00 133 Below low normal 135 -146 (mmol/L) Final Potassium 02/09/2025 04:30:00 4.0 3.5-5.1 (m mol/L) Final Cl 02/09/2025 04:30:00 98 98-107 (mm ol/L) Final CO2 02/09/2025 04:30:00 24 22-32 (mmo l/L) Final Anion gap 02/09/2025 04:30:00 11 7-15 (mmol /L) Final Glucose 02/09/2025 04:30:00 98 70-120 (mg /dL) Final Calcium 02/09/2025 04:30:00 8.4 8.4-10.2 ( mg/dL) Final Performing Location [facility] [place] [address] [place] [address]
--- OUTSIDE RECORDS SUMMARY | 2025-02-13 00:32 | External Medical Summary | Summary of Care ---
Author Name Unknown Organization [facility] Address [address] [place] [address] Phone [phone] Care Team Providers Care Cutter Banana Room Name Role Phone Zuleima Garcia MD Primary Care Provider + Encounter Details Date Type Department Care Team (Late st Contact Info) Description 02/09/2025 Documentation [facility] [address] [place], [place] [phone] Frieda Caal, LAFRED 9 [place] [address] Allergies Active Allergy Reactions Criticality Noted Date Comments Ezetimibe Low 11/28/2023 General malaise or feeling unwell Famotidine Diarrhea Low 09/13/2024 Prednisone Muscle pain Medium 07/15/2024 Pantoprazole Hives Medium 02/07/2022 GI upset Rosuvastatin Medium 11/28/2023 Muscle aches/pains, fatigue Statins Medium 11/01/2022 myalgia Torsemide Low 08/12/2024 GI symptoms documented as of this encounter (statuses as of 02/09/2025) Medications Ferrous Sulfate 325 (65 Fe) MG [...] as of this encounter (statuses as of 02/09/2025) Active Problems Problem Noted Date Diagnosed Date [...] as of this encounter (statuses as of 02/09/2025) Resolved Problems Problem Noted Date Diagnosed Date Resolved Date HTN, goal below 130/80 08/12/201808/16 documented as of this encounter (statuses as of 02/09/2025) Immunizations Name Administration Dates Next Due COVID-19 mRNA, LNP-s, No Pre serve, 2-Dose Series ([employer]) 11/04/2021,02/14/2021,01/24/2021 Covid-19, Mrna, Lnp-s, Pf, B ivalent, 30 Mcg, IM, 12 yrs and above ([employer]) 08/25/2022 Pneumococcal Conjugate Vacc, 13 Valent (Prevnar) [...] Progress Notes * Frieda Caal LSW - 02/09/2025 3:02 PM EDT [facility] Subjective: SW requested [facility] flight deck officer to schedule enrollment appointment for . Patient is anticipating discharge Saturday with HH SOC Saturday. documented in this encounter Plan of Treatment Upcoming Encounters Date Type Department Care Team (Late st Contact Info) Description 02/10/2025 5:50 PM EDT Anticoagulation Pharmacy, [facility] [place] [address] [place] [address] [address] Pharmacist1, [facility] [address] [place] [address] 02/25/2025 11:20 AM EDT Office Visit General Internal Medicine [facility] [place] [address] [place] [address] Zuleima Garcia MD [address] [place] [address] 03/10/2025 1:45 PM EDT Office Visit Cardiothoracic Surg [facility] [address] [place] [address] Jonathan House MD [address] [place] [address] 04/01/2025 9:20 AM EDT Office Visit General Internal Medicine Jaime Preciado [place] [address] [place] [address] Zuleima Garcia MD [address] [place] [address] 04/01/2025 10:30 AM EDT [address] Laboratory, [address] [address] Mario Arredondo [facility] [place] [address] 04/01/2025 11:00 AM EDT Office Visit Cardiology, [facility] [address] Daiana Anne [facility] [place] [address] 04/01/2025 11:15 AM EDT Cardiac Studies Cardiac Studies, [facility] 132 [employer] [place] [address] 04/01/2025 2:00 PM EDT Cardiac Studies Cardiac Studies, [address] [address] Scheduled Procedures Name Priority Associated Diagnoses Date/Ti [...] D LEVEL ONCE IN A LIFETIME-USE SMARTSET# 99408 Completed 01/12/2023, 06/03/2021, 08/16/2018 Influenza Vaccine (FLU [...] this encounter Medical Devices Implanted Type Area Real Time Operator Device Identifier Shelf Expiration Date Model / Serial / Lot Cath Thermodilution 6fr - [id number] Implanted:Qty: 1 on 01/18/2025 by Melinda Jin MD [place] [facility] [facility] [facility] [place] [employer] [id number] 06/24/2026 [id number] / / [id number] Cath Iabp Sensation 40cc Fiber - [id number] Implanted:Qty: 1 on 01/27/2025 by Nelson Mariee MD at [facility] [place] [employer] : MAQUET [id number] 06/05/2027 0684-00- 0568-01U / / [id number] 29 Catheter Angio Pigtail Curve 5fr X 110cm Without Sideholes Impulse - [id number] Implanted:Qty: 1 on 01/27/2025 by Nelson Mariee MD at [facility] [place] [employer] : INTRV CARD [id number] 08/07/2026 [id number] / / [id number] Valve Mitral Size 29 Mm Non Rotatable Porcine Bioprosthesis [facility] - [id number] - [id number] Implanted:Qty: 1 on 02/02/2025 by Jonathan House MD at [place] [facility] [place] Left: Heart [employer] : CARDIAC SURGERY [id number] 08/11/2029 [id number] / [id number] / [id number] Suture Steel 6 B&S19 M654g - [id number] Implanted:Qty: 4 on 02/02/2025 by Jonathan House MD at [place] [facility] [place] N/A: Sternum JNJ : [employer] 08/24/2029 M654G / / [id number] Valve Heart Aortic Mag Eas 23m - [id number] - [id number] Implanted:Qty: 1 on 02/02/2025 by Jonathan House MD at [place] [facility] [place] N/A: Aorta [employer] [id number] 05/31/2028 [id number] 3MM / [id number] / [id number] Suture Steel 6 B&S19 M654g - [id number] Implanted:Qty: 3 on 02/02/2025 by Jonathan House MD at [place] [facility] [place] N/A: Sternum JNJ : [employer] 02/22/2029 [...] Discussed due to patient's condition Care Teams Cutter Banana Room Relationship Specialty Start Date End Date Zuleima Garcia MD 200 [facility], [place] [phone] PCP - General Internal Medicine 08/28/24 documented as of this encounter
--- OUTSIDE RECORDS SUMMARY | 2025-02-13 00:32 | External Medical Summary ---
Author Name Unknown Address Unknown Organization K01:[place]ORY [facility] [place] [facility] [address] [place] [address] Laboratory Report Ordering Provider Test Date Status ELBERT WILKES 02/07/2025 04:02:00 Final Observation Date Value Abnormality Reference (Units ) Status BUN 02/07/2025 04:02:00 52 Above high normal 6-20 (mg/dL) Final Creatinine 02/07/2025 04:02:00 2.9 Above high normal 0.5-1.0 (mg/dL) Final Glomerular filtration rate/1.73 sq M.predicted [Volume Rate/Area] in Serum, Plasma or Blood by Creatinine-based formula (CKD-EPI) 02/07/2025 04:02:00 17 Below low normal >=60 (mL/min) Final eGFR is calculated based on the CKD-EPI 2020 equation. Sodium 02/07/2025 04:02:00 137 135-146 (m mol/L) Final Potassium 02/07/2025 04:02:00 3.3 Below low normal 3.5 -5.1 (mmol/L) Final Cl 02/07/2025 04:02:00 100 98-107 (mm ol/L) Final CO2 02/07/2025 04:02:00 25 22-32 (mmo l/L) Final Anion gap 02/07/2025 04:02:00 12 7-15 (mmol /L) Final Glucose 02/07/2025 04:02:00 91 70-120 (mg /dL) Final Calcium 02/07/2025 04:02:00 8.1 Below low normal 8.4 -10.2 (mg/dL) Final Performing Location [facility] [place] [address] [place] [address]
--- OUTSIDE RECORDS SUMMARY | 2025-02-13 00:32 | External Medical Summary ---
Author Name Unknown Address Unknown Organization K01:[facility]ATORY [facility] [place] - [address] [facility] [address] Laboratory Report Ordering Provider Test Date Status ELBERT WILKES 02/08/2025 03:41:00 Final Observation Date Value Abnormality Reference (Units ) Status SYNC LEUKOCYTES IN BLOOD BY AUTOMATED COUNT 02/08/2025 03:41:00 8.04 4.00-10.80 (K/uL) Final Segs 02/08/2025 03:41:00 73.1 40.0-75.0 (%) Final Lymphs % 02/08/2025 03:41:00 8.3 Below low normal 18.0-42.0 (%) Final Monos 02/08/2025 03:41:00 13.3 Above high normal 1.0-11.0 (%) Final Eosinophils 02/08/2025 03:41:00 3.7 0.0-6.0 (%) Final Basos 02/08/2025 03:41:00 0.2 0.0-2.0 (%) Final Immature Granulocyte, Percent 02/08/2025 03:41:00 1.4 0.0-2.0 (%) Final Absolute Segs 02/08/2025 03:41:00 5.87 1.80-7.70 (K/uL) Final Lymphs, absolute 02/08/2025 03:41:00 0.67 Below low normal 1.00-4.80 (K/ul) Final Monos, Abs 02/08/2025 03:41:00 1.07 0.00-1.10 (K/uL) Final Eos, Abs 02/08/2025 03:41:00 0.30 0.00-0.70 (K/uL) Final Basos, Abs 02/08/2025 03:41:00 0.02 0.00-0.20 (K/uL) Final Immature Granulocytes, Number 02/08/2025 03:41:00 0.11 0.00-0.20 (K/uL) Final Performing Location LAB[facility]ATORY [facility] [place] - [facility] [place] [address]
--- OUTSIDE RECORDS SUMMARY | 2025-02-13 00:32 | External Medical Summary ---
Author Name Unknown Address Unknown Organization K01:[facility] [place] [address] [place] [address] Laboratory Report Ordering Provider Test Date Status ELBERT WILKES 02/09/2025 04:30:00 Final Observation Date Value Abnormality Reference (Units ) Status WBC, Total 02/09/2025 04:30:00 7.73 4.00-10.80 (K/uL) Final RBC 02/09/2025 04:30:00 2.95 3.85-5.15 (M/uL) Final Hemoglobin 02/09/2025 04:30:00 9.2 Below low normal 12.0-15.3 (g/dL) Final HCT 02/09/2025 04:30:00 29.4 Below low normal 36.0-45.2 (%) Final MCV 02/09/2025 04:30:00 99.7 81.5-97.5 (fL) Final MCH 02/09/2025 04:30:00 31.2 27.0-34.0 (pg) Final MCHC 02/09/2025 04:30:00 31.3 32.0-36.0 (g/dL) Final RDW 02/09/2025 04:30:00 19.2 11.5-15.5 (%) Final Platelets 02/09/2025 04:30:00 94 Below low normal 140-400 (K/uL) Final MPV 02/09/2025 04:30:00 10.4 6.6-11.1 (fL) Final Nucleated erythrocytes/100 leukocytes [Ratio] in Blood by Automated count 02/09/2025 04:30:00 0 <=0 (/100 WBCs) Final Performing Location [facility] [place] [address] [place] [address]
--- OUTSIDE RECORDS SUMMARY | 2025-02-13 00:32 | External Medical Summary ---
Author Name Unknown Address Unknown Organization K01:LABORATORY [facility] [place] - [address] [place] [address] Laboratory Report Ordering Provider Test Date Status ELBERT WILKES 02/07/2025 04:02:00 Final Observation Date Value Abnormality Reference (Units ) Status WBC, Total 02/07/2025 04:02:00 6.84 4.00-10.80 (K/uL) Final RBC 02/07/2025 04:02:00 2.96 3.85-5.15 (M/uL) Final Hemoglobin 02/07/2025 04:02:00 9.4 Below low normal 12.0-15.3 (g/dL) Final HCT 02/07/2025 04:02:00 29.2 Below low normal 36.0-45.2 (%) Final MCV 02/07/2025 04:02:00 98.6 81.5-97.5 (fL) Final MCH 02/07/2025 04:02:00 31.8 27.0-34.0 (pg) Final MCHC 02/07/2025 04:02:00 32.2 32.0-36.0 (g/dL) Final RDW 02/07/2025 04:02:00 19.8 11.5-15.5 (%) Final Platelets 02/07/2025 04:02:00 46 Below low normal 140-400 (K/uL) Final MPV 02/07/2025 04:02:00 10.5 6.6-11.1 (fL) Final Nucleated erythrocytes/100 leukocytes [Ratio] in Blood by Automated count 02/07/2025 04:02:00 0 <=0 (/100 WBCs) Final Performing Location LABORATORY [facility] [place] - [address] [place] [address]
--- OUTSIDE RECORDS SUMMARY | 2025-02-13 00:32 | External Medical Summary ---
Author Name Unknown Address Unknown Organization K01:[place] [facility] [place] [address] [place] [address] Laboratory Report Ordering Provider Test Date Status KATRINELBERT 02/08/2025 03:41:00 Final Warfarin Therapy
INR: 2 .0-3.0 conventional anticoagulation
INR: 2.5- 3.5 high intensity anticoagulation Observation Date Value Abnormality Reference (Units ) Status PT 02/08/2025 03:41:00 14.4 11.6-15.2 (seconds) Final INR 02/08/2025 03:41:00 1.1 0.8-1.2 Final Performing Location [facility] [place] [address] [place] [address]
--- OUTSIDE RECORDS SUMMARY | 2025-02-13 00:32 | External Medical Summary | Summary of Care ---
Author Name Unknown Organization [facility] Address [address] [place] [address] Phone [phone] Care Team Providers Care Automotive Design Drafter Name Role Phone Zuleima Garcia MD Primary Care Provider + Reason for Visit * Reason Comments Hospital Follow-Up Encounter Details Date Type Department Care Team (Latest Contact Info) Description 02/08/2025 5:50 PM EDT Anticoagulation Pharmacy, [facility] [address] [place] [address] Pharmacist1, [facility] [address] [place] [address] S/P MVR (mitral valve replacement)*; Prosthetic mitral [...] mRNA, LNP-s, No Pre serve, 2-Dose Series ([employer]) 11/04/2021,02/14/2021,01/24/2021 Covid-19, Mrna, Lnp-s, Pf, B ivalent, 30 Mcg, IM, 12 yrs and above ([employer]) 08/25/2022 Pneumococcal Conjugate Vacc, 13 Valent (Prevnar) [...] of Assessment Author No 01/27/2025 9:48 PM EST [place], J essica L, RN documented as of this encounter Mental Status * Because of a physical, mental, or emotional condition, do you have serious difficulty concentrating, remembering, or making decisions? (5 years old or older) Answer Entry Date Author No 01/27/2025 9:48 PM EST Mele Torres RN documented in this encounter Progress Notes * Frederick Brooks RPh - 02/08/2025 7:05 AM EDT Patient Phone Numbers Patient [facility] [place] [facility] [place] Warfarin still not started due to low Platelets. Check for discharge in 2 days Frederick Reynolds RPh, [facility] Clinical Pharmacist Medication Therapy [facility] 02/08/2025, 7:05 AM documented in this encounter Plan of Treatment Upcoming Encounters Date Type Department Care Team (Late st Contact Info) Description 02/10/2025 5:50 PM EDT Anticoagulation Pharmacy, [facility] [address] [facility] [address] Pharmacist1, [facility] [address] 04/01/2025 9:20 AM EDT Office Visit General Internal Medicine [facility] [address] [facility] [address] Zuleima Garcia MD [address] [facility] [address] 04/01/2025 10:30 AM EDT Laboratory Laboratory, [facility] [address] [place] [place] [phone] Mario Arredondo [facility] [address] [place] [address] 04/01/2025 11:00 AM EDT Office Visit Cardiology, [facility] [address] [address] Daiana Anne CRNP 132 [facility] [address] [address] 04/01/2025 11:15 AM EDT Cardiac Studies Cardiac Studies, [facility] [address] [place] [address] 04/01/2025 2:00 PM EDT Cardiac Studies Cardiac Studies, [facility] [address] [place] [address] Scheduled Procedures Name Priority Associated Diagnoses Date/Ti [...] Tdap) 05/10/2028 05/10/2018 Lipid Panel 01/19/2030 01/19/2025, 04, 08/24/2023, Additional history exists Colonoscopy 08/07/2031 08/07/2021, 08/07/2021 Colorectal Cancer Screening 08/07/2031 Pneumococcal Vaccine: 50+ Years Completed 05/10/2018, 05/10/2018 Zoster Vaccines Completed 06/09/2018, 05/10/2018 VITAMIN D LEVEL ONCE IN A LIFETIME-USE SMARTSET# [id number] Completed 01/12/2023, 06/03/2021, 08/16/2018 Influenza Vaccine (FLU [...] this encounter Medical Devices Implanted Type Area Guard Range Device Identifier Shelf Expiration Date Model / Serial / Lot Cath Thermodilution 6fr - [id number] Implanted:Qty: 1 on 01/18/2025 by Melinda Jin MD at [facility] [employer] [id number] 06/24/2026 [id number] / / [id number] Cath Iabp Sensation 40cc Fiber - [id number] Implanted:Qty: 1 on 01/27/2025 by Nelson Mariee MD at [facility] [employer] : MAQUET [id number] 06/05/2027 0684-00- 0568-01U / / [id number] 29 Catheter Angio Pigtail Curve 5fr X 110cm Without Sideholes Impulse - [id number] Implanted:Qty: 1 on 01/27/2025 by Nelson Mariee MD at [facility] [employer] : INTRV CARD [id number] 08/07/2026 [id number] 1402 / / [id number] Valve Mitral Size 29 Mm Non Rotatable Porcine Bioprosthesis [facility] - [id number] - [id number] Implanted:Qty: 1 on 02/02/2025 by Jonathan House MD at OR [facility] Left: Heart [employer] : CARDIAC SURGERY [id number] 08/11/2029 [id number] / [id number] / [id number] Suture Steel 6 B&S19 M654g - [id number] Implanted:Qty: 4 on 02/02/2025 by Jonathan House MD at OR [facility] N/A: Sternum JNJ : [employer] 08/24/2029 M654G / / [id number] Valve Heart Aortic Mag Eas 23m - [id number] - [id number] Implanted:Qty: 1 on 02/02/2025 by Jonathan House MD at OR [facility] N/A: Aorta [employer] [id number] 05/31/2028 [id number] 3MM / [id number] / [id number] Suture Steel 6 B&S19 M654g - [id number] Implanted:Qty: 3 on 02/02/2025 by Jonathan House MD at OR [facility] N/A: Sternum JNJ : [employer] 02/22/2029 [...] Discussed due to patient's condition Care Teams Automotive Design Drafter Relationship Specialty Start Date End Date Zuleima Garcia MD [address] [place] [address] PCP - General Internal Medicine 08/28/24 documented as of this encounter
--- OUTSIDE RECORDS SUMMARY | 2025-02-13 00:32 | External Medical Summary | Summary of Care ---
Author Name Unknown Organization [facility] Address [address] [place] [address] Phone [phone] Care Team Providers Care Wound Care Specialist Name Role Phone Zuleima Garcai MD Primary Care Provider + Encounter Details Date Type Department Care Team (Late st Contact Info) Description 02/09/2025 Documentation [facility] [address] [place], [place] [phone] Frieda Caal, ALFRED [address] [place] [address] Allergies Active Allergy Reactions Criticality [...] mRNA, LNP-s, No Pre serve, 2-Dose Series ([employer]) 11/04/2021,02/14/2021,01/24/2021 Covid-19, Mrna, Lnp-s, Pf, B ivalent, 30 Mcg, IM, 12 yrs and above ([employer]) 08/25/2022 Pneumococcal Conjugate Vacc, 13 Valent (Prevnar) [...] Mele Davis RN documented in this encounter Plan of Treatment Upcoming Encounters Date Type Department Care Team (Late st Contact Info) Description 02/10/2025 5:50 PM EDT Anticoagulation Pharmacy, [facility] [address] [place] [address] [address] Pharmacist1, [facility] [address] [place] [address] 02/25/2025 11:20 AM EDT Office Visit General Internal Medicine [facility] [address] [place] [address] Zuleima Garcia MD [address] [place] [address] [address] 03/10/2025 1:45 PM EDT Office Visit Cardiothoracic Surg [facility] [address] [place] [address] Jonathan House MD [address] [place] [address] 04/01/2025 9:20 AM EDT Office Visit General Internal Medicine [facility] [address] [place] [address] Zuleima Garcia MD [address] [place] [address] 04/01/2025 10:30 AM EDT Laboratory Laboratory, [facility] [place] [address] [phone] Mario Arredondo [address] [place] [address] 04/01/2025 11:00 AM EDT Office Visit Cardiology, [facility] [place] [address] [place] [address] Daiana Anne CRNP 132 [facility] [place] [address] 04/01/2025 11:15 AM EDT Cardiac Studies Cardiac Studies, [facility] 132 [facility] [place] [address] 04/01/2025 2:00 PM EDT Cardiac Studies Cardiac Studies, [facility] 132 [facility] [place] [address] Scheduled Procedures Name Priority Associated Diagnoses Date/Ti [...] D LEVEL ONCE IN A LIFETIME-USE SMARTSET# 51079 Completed 01/12/2023, 06/03/2021, 08/16/2018 Influenza Vaccine (FLU [...] this encounter Medical Devices Implanted Type Area Development Planner Device Identifier Shelf Expiration Date Model / Serial / Lot Cath Thermodilution 6fr - [id number] Implanted:Qty: 1 on 01/18/2025 by Melinda Jin [place] [facility] [facility] [employer] [id number] 06/24/2026 [id number] / / [id number] Cath Iabp Sensation 40cc Fiber - [id number] Implanted:Qty: 1 on 01/27/2025 by Nelson Mariee MD [place] [facility] [employer] : MAQUET [id number] 06/05/2027 0684-00- 0568-01U / / [id number] Catheter Angio Pigtail Curve 5fr X 110cm Without Sideholes Impulse - [id number] Implanted:Qty: 1 on 01/27/2025 by Nelson Mariee MD [place] [facility] [employer] : INTRV CARD [id number] 08/07/2026 [id number] 1402 / / [id number] Valve Mitral Size 29 Mm Non Rotatable Porcine Bioprosthesis [facility] - [id number] - [id number] Implanted:Qty: 1 on 02/02/2025 by Jonathan House [place] [facility] [place]: Heart [employer] : CARDIAC SURGERY [id number] 08/11/2029 310C29 / [id number] / [id number] Suture Steel 6 B&S19 M654g - [id number] Implanted:Qty: 4 on 02/02/2025 by Jonathan House MD [place] [facility] N/A: Sternum JNJ : [employer] 08/24/2029 M654G / / [id number] Valve Heart Aortic Mag Eas 23m - [id number] - [id number] Implanted:Qty: 1 on 02/02/2025 by Jonathan House MD [place] [facility] N/A: Aorta [employer] [id number] 05/31/2028 [id number] 3MM / [id number] / [id number] Suture Steel 6 B&S19 M654g - [id number] Implanted:Qty: 3 on 02/02/2025 by Jonathan House [...] Discussed due to patient's condition Care Teams Wound Care Specialist Relationship Specialty Start Date End Date Zuleima Garcia MD [address] [place] [address], [place] [address] PCP - General Internal Medicine 08/28/24 documented as of this encounter
--- OUTSIDE RECORDS SUMMARY | 2025-02-13 00:32 | External Medical Summary ---
Author Name Unknown Address Unknown Organization K01:LABORATORY [facility] [place] [address] [place] [address] Laboratory Report Ordering Provider Test Date Status KATRINELBERT 02/09/2025 04:30:00 Final Warfarin Therapy
INR: 2 .0-3.0 conventional anticoagulation
INR: 2.5- 3.5 high intensity anticoagulation Observation Date Value Abnormality Reference (Units ) Status PT 02/09/2025 04:30:00 15.1 11.6-15.2 (seconds) Final INR 02/09/2025 04:30:00 1.2 0.8-1.2 Final Performing Location LABORATORY [facility] [place] - [address] [place] [address]
--- OUTSIDE RECORDS SUMMARY | 2025-02-13 00:32 | External Medical Summary ---
Author Name Unknown Address Unknown Organization K01:LABORATORY [facility] [place] - [facility] [address] [facility] [address] Laboratory Report Ordering Provider Test Date Status ELBERT WILKES 02/10/2025 03:50:00 Final Observation Date Value Abnormality Reference (Units ) Status BUN 02/10/2025 03:50:00 39 Above high normal 6-20 (mg/dL) Final Creatinine 02/10/2025 03:50:00 1.8 Above high normal 0.5-1.0 (mg/dL) Final Glomerular filtration rate/1.73 sq M.predicted [Volume Rate/Area] in Serum, Plasma or Blood by Creatinine-based formula (CKD-EPI) 02/10/2025 03:50:00 30 Below low normal >=60 (mL/min) Final eGFR is calculated based on the CKD-EPI 2020 equation. Sodium 02/10/2025 03:50:00 131 Below low normal 135 -146 (mmol/L) Final Potassium 02/10/2025 03:50:00 3.7 3.5-5.1 (m mol/L) Final Cl 02/10/2025 03:50:00 96 Below low normal 98- 107 (mmol/L) Final CO2 02/10/2025 03:50:00 23 22-32 (mmo l/L) Final Anion gap 02/10/2025 03:50:00 12 7-15 (mmol /L) Final Glucose 02/10/2025 03:50:00 106 70-120 (mg /dL) Final Calcium 02/10/2025 03:50:00 8.5 8.4-10.2 ( mg/dL) Final Performing Location LABORATORY [facility] [place] - [address] [place] [address]
--- OUTSIDE RECORDS SUMMARY | 2025-02-13 00:32 | External Medical Summary ---
Author Name Unknown Address Unknown Organization K01:[facility]ATORY [facility] [place] [address] [facility] [address] Laboratory Report Ordering Provider Test Date Status ELBERT WILKES 02/07/2025 04:02:00 Final Observation Date Value Abnormality Reference (Units ) Status SYNC LEUKOCYTES IN BLOOD BY AUTOMATED COUNT 02/07/2025 04:02:00 6.84 4.00-10.80 (K/uL) Final Segs 02/07/2025 04:02:00 76.0 Above high normal 40.0-75.0 (%) Final Lymphs % 02/07/2025 04:02:00 6.0 Below low normal 18.0-42.0 (%) Final Monos 02/07/2025 04:02:00 12.3 Above high normal 1.0-11.0 (%) Final Eosinophils 02/07/2025 04:02:00 4.4 0.0-6.0 (%) Final Basos 02/07/2025 04:02:00 0.3 0.0-2.0 (%) Final Immature Granulocyte, Percent 02/07/2025 04:02:00 1.0 0.0-2.0 (%) Final Absolute Segs 02/07/2025 04:02:00 5.20 1.80-7.70 (K/uL) Final Lymphs, absolute 02/07/2025 04:02:00 0.41 Below low normal 1.00-4.80 (K/ul) Final Monos, Abs 02/07/2025 04:02:00 0.84 0.00-1.10 (K/uL) Final Eos, Abs 02/07/2025 04:02:00 0.30 0.00-0.70 (K/uL) Final Basos, Abs 02/07/2025 04:02:00 0.02 0.00-0.20 (K/uL) Final Immature Granulocytes, Number 02/07/2025 04:02:00 0.07 0.00-0.20 (K/uL) Final Performing Location [facility] [place] [address]
--- OUTSIDE RECORDS SUMMARY | 2025-02-13 00:32 | External Medical Summary ---
Author Name Unknown Address Unknown Organization K01:LABORATORY C - [address] [place] [address] Laboratory Report Ordering Provider Test Date Status ELBERT WILKES 02/09/2025 04:30:00 Final Observation Date Value Abnormality Reference (Units ) Status Magnesium 02/09/2025 04:30:00 2.1 1.5-2.6 (m g/dL) Final Performing Location [facility]ORY [facility] - [address] [facility] [address]
--- OUTSIDE RECORDS SUMMARY | 2025-02-13 00:33 | External Medical Summary ---
Author Name Unknown Address Unknown Organization K01:LABORATORY [facility] - 100 [facility] [address] Laboratory Report Ordering Provider Test Date Status ELBERT WILKES 02/06/2025 04:11:00 Final Observation Date Value Abnormality Reference (Units ) Status SYNC LEUKOCYTES IN BLOOD BY AUTOMATED COUNT 02/06/2025 04:11:00 7.03 4.00-10.80 (K/uL) Final Segs 02/06/2025 04:11:00 77.5 Above high normal 40.0-75.0 (%) Final Lymphs % 02/06/2025 04:11:00 7.0 Below low normal 18.0-42.0 (%) Final Monos 02/06/2025 04:11:00 10.1 1.0-11.0 (%) Final Eosinophils 02/06/2025 04:11:00 4.4 0.0-6.0 (%) Final Basos 02/06/2025 04:11:00 0.1 0.0-2.0 (%) Final Immature Granulocyte, Percent 02/06/2025 04:11:00 0.9 0.0-2.0 (%) Final Absolute Segs 02/06/2025 04:11:00 5.45 1.80-7.70 (K/uL) Final Lymphs, absolute 02/06/2025 04:11:00 0.49 Below low normal 1.00-4.80 (K/ul) Final Monos, Abs 02/06/2025 04:11:00 0.71 0.00-1.10 (K/uL) Final Eos, Abs 02/06/2025 04:11:00 0.31 0.00-0.70 (K/uL) Final Basos, Abs 02/06/2025 04:11:00 0.01 0.00-0.20 (K/uL) Final Immature Granulocytes, Number 02/06/2025 04:11:00 0.06 0.00-0.20 (K/uL) Final Performing Location LABORATORY [facility] - [facility] [place] [address]
--- OUTSIDE RECORDS SUMMARY | 2025-02-13 00:33 | External Medical Summary ---
Author Name Unknown Address Unknown Organization : Laboratory Report Ordering Provider Test Date Status RACHEAL KELLY 02/05/2025 18:55:56 Final Observation Date Value Abnormality Reference (Units ) Status Free Hemoglobin [Mass/volume] in Urine 02/05/2025 18:55:56 0.6 <1.1 (mg/dL) Final Test Performed at:
[facility]
[address]
[place] [address]
Reed Ardon M.D., Ph.D.,Director of Laboratories Performing Location
--- OUTSIDE RECORDS SUMMARY | 2025-02-13 00:33 | External Medical Summary ---
Author Name Unknown Address Unknown Organization K01:LABORATORY [facility] - [address] [place] [address] Laboratory Report Ordering Provider Test Date Status ELBERT WILKES 02/06/2025 04:11:00 Final Observation Date Value Abnormality Reference (Units ) Status WBC, Total 02/06/2025 04:11:00 7.03 4.00-10.80 (K/uL) Final RBC 02/06/2025 04:11:00 3.20 3.85-5.15 (M/uL) Final Hemoglobin 02/06/2025 04:11:00 9.9 Below low normal 12.0-15.3 (g/dL) Final HCT 02/06/2025 04:11:00 31.2 Below low normal 36.0-45.2 (%) Final MCV 02/06/2025 04:11:00 97.5 81.5-97.5 (fL) Final MCH 02/06/2025 04:11:00 30.9 27.0-34.0 (pg) Final MCHC 02/06/2025 04:11:00 31.7 32.0-36.0 (g/dL) Final RDW 02/06/2025 04:11:00 19.9 11.5-15.5 (%) Final Platelets 02/06/2025 04:11:00 42 Below low normal 140-400 (K/uL) Final MPV 02/06/2025 04:11:00 13.2 6.6-11.1 (fL) Final Nucleated erythrocytes/100 leukocytes [Ratio] in Blood by Automated count 02/06/2025 04:11:00 0 <=0 (/100 WBCs) Final Performing Location LABORATORY [facility] - [address] [place] [address]
--- OUTSIDE RECORDS SUMMARY | 2025-02-13 00:33 | External Medical Summary ---
Author Name Unknown Address Unknown Organization K01:LABORATORY [facility] - [facility] [address] [facility] [address] Laboratory Report Ordering Provider Test Date Status ELBERT WILKES 02/06/2025 04:11:00 Final Observation Date Value Abnormality Reference (Units ) Status BUN 02/06/2025 04:11:00 53 Above high normal 6-20 (mg/dL) Final Creatinine 02/06/2025 04:11:00 3.3 Above high normal 0.5-1.0 (mg/dL) Final Glomerular filtration rate/1.73 sq M.predicted [Volume Rate/Area] in Serum, Plasma or Blood by Creatinine-based formula (CKD-EPI) 02/06/2025 04:11:00 14 Below low normal >=60 (mL/min) Final eGFR is calculated based on the CKD-EPI 2020 equation. Sodium 02/06/2025 04:11:00 140 135-146 (m mol/L) Final Potassium 02/06/2025 04:11:00 3.1 Below low normal 3.5 -5.1 (mmol/L) Final Cl 02/06/2025 04:11:00 100 98-107 (mm ol/L) Final CO2 02/06/2025 04:11:00 24 22-32 (mmo l/L) Final Anion gap 02/06/2025 04:11:00 16 Above high normal 7- 15 (mmol/L) Final Glucose 02/06/2025 04:11:00 99 70-120 (mg /dL) Final Calcium 02/06/2025 04:11:00 8.4 8.4-10.2 ( mg/dL) Final Performing Location LABORATORY [facility] - [address] [place] [address]
--- OUTSIDE RECORDS SUMMARY | 2025-02-13 00:33 | External Medical Summary | Summary of Care ---
Author Name Unknown Organization [facility] Address [address] [place] [address] Phone [phone] Care Team Providers Care Ferry Terminal Agent Name Role Phone Zuleima Garcia MD Primary Care Provider + Encounter Details Date Type Department Care Team (Late st Contact Info) Description 02/05/2025 Documentation [facility] [address] [place], [place] [id number] Frieda Caal, ALFRED [address] [place] [address] Allergies Active Allergy Reactions Criticality Noted Date Comments Ezetimibe Low 11/28/2023 General malaise or feeling unwell Famotidine Diarrhea Low 09/13/2024 Prednisone Muscle pain Medium 07/15/2024 Pantoprazole Hives Medium 02/07/2022 GI upset Rosuvastatin Medium 11/28/2023 Muscle aches/pains, fatigue Statins Medium 11/01/2022 myalgia Torsemide Low 08/12/2024 GI symptoms documented as of this encounter (statuses as of 02/05/2025) Medications Ferrous Sulfate 325 (65 Fe) MG [...] as of this encounter (statuses as of 02/05/2025) Active Problems Problem Noted Date Diagnosed Date [...] as of this encounter (statuses as of 02/05/2025) Resolved Problems Problem Noted Date Diagnosed Date Resolved Date HTN, goal below 130/80 08/12/201808/16 documented as of this encounter (statuses as of 02/05/2025) Immunizations Name Administration Dates Next Due COVID-19 mRNA, LNP-s, No Pre serve, 2-Dose Series (ciValue) 11/04/2021,02/14/2021,01/24/2021 Covid-19, Mrna, Lnp-s, Pf, B ivalent, 30 Mcg, IM, 12 yrs and above (ciValue) 08/25/2022 Pneumococcal Conjugate Vacc, 13 Valent (Prevnar) [...] Progress Notes * Frieda Caal LSW - 02/05/2025 2:08 PM EDT [facility] Subjective: SW spoke to [facility], patient is not medically ready for discharge. SW wanted to speak withpatient with family present in regard to [facility], however family was not at bedside. SW to continue to follow during admission and will speak with patient and family prior to discharge. Care [facility] Hand Documentation The patient's case been reviewed with: Interdisciplinary Team, Health Care Team documented in this encounter Plan of Treatment Upcoming Encounters Date Type Department Care Team (Late st Contact Info) Description 02/08/2025 5:50 PM EDT Anticoagulation Pharmacy, [facility] [place] [address] [facility] [address] [place] [address] Pharmacist1, [facility] [address] [place] [address] 04/01/2025 9:20 AM EDT Office Visit General Internal Medicine [facility] [place] [address] [place] [address] Zuleima Garcia MD [address] [place] [address] 04/01/2025 10:30 AM EDT Laboratory Laboratory, [facility], [place] [address] [phone] Mario Arredondo [address] [address] 04/01/2025 11:00 AM EDT [facility], [facility] [place] [address] [place] [address] Daiana Anne CRNP [address] [facility] [place] [address] 04/01/2025 11:15 AM EDT Cardiac Studies Cardiac Studies, [facility] [place] [place] [address] 04/01/2025 2:00 PM EDT Cardiac Studies Cardiac Studies, [facility] [address] [facility] [address] [place] [address] Scheduled Procedures Name Priority Associated Diagnoses Date/Ti [...] 10/01/2024, 07/27, 08/14/2023, Additional history exists GFR 02/05/2026 02/05/2025, 01/23, 02/04/2025, Additional history exists DXA Scan 09/17/2026 09/17/2024 Albumin/Creatinine Ratio 01/29/2028 025, 11/03/2022, 06/21/2020 DTap/Tdap Vaccines (2 - Td or Tdap) 05/10/2028 05/10/2018 Lipid Panel 01/19/2030 01/19/2025, 04/, 08/24/2023, Additional history exists Colonoscopy 08/07/2031 08/07/2021, 08/07/2021 Colorectal Cancer Screening 08/07/2031 Pneumococcal Vaccine: 50+ Years Completed 05/10/2018, 05/10/2018 Zoster Vaccines Completed 06/09/2018, 05/10/2018 VITAMIN D LEVEL ONCE IN A LIFETIME-USE SMARTSET# [id number] Completed 01/12/2023, 06/03/2021, 08/16/2018 Influenza Vaccine (FLU [...] this encounter Medical Devices Implanted Type Area Fire Manager Device Identifier Shelf Expiration Date Model / Serial / Lot Cath Thermodilution 6fr - [id number] Implanted:Qty: 1 on 01/18/2025 by Melinda Jin MD at [facility] [employer] [id number] 06/24/2026 [id number] / / [id number] Cath Iabp Sensation 40cc Fiber - [id number] Implanted:Qty: 1 on 01/27/2025 by Nelson Mariee MD at [facility] [employer] : MAQUET [id number] 06/05/2027 0684-00- 0568-01U / / [id number] Catheter Angio Pigtail Curve 5fr X 110cm Without Sideholes Impulse - [id number] Implanted:Qty: 1 on 01/27/2025 by Nelson Mariee MD at [facility] [employer] : INTRV CARD [id number] 08/07/2026 [id number] / / [id number] Valve Mitral Size 29 Mm Non Rotatable Porcine Bioprosthesis [facility] - [id number] - [id number] Implanted:Qty: 1 on 02/02/2025 by Jonathan House MD at [place] [facility] Left: Heart [employer] : CARDIAC SURGERY [id number] 08/11/2029 [id number] / [id number] / [id number] Suture Steel 6 B&S19 M654g - [id number] Implanted:Qty: 4 on 02/02/2025 by Jonathan House MD at [place] [facility] N/A: Sternum JNJ : [employer] 08/24/2029 M654G / / [id number] Valve Heart Aortic Mag Eas 23m - [id number] - [id number] Implanted:Qty: 1 on 02/02/2025 by Jonathan House MD at [place] [facility] N/A: Aorta [employer] [id number] 05/31/2028 [id number] 3MM / [id number] / [id number] Suture Steel 6 B&S19 M654g - [id number] Implanted:Qty: 3 on 02/02/2025 by Jonathan House MD at [place] [facility] N/A: Sternum JNJ : [employer] 02/22/2029 [...] Discussed due to patient's condition Care Teams Ferry Terminal Agent Relationship Specialty Start Date End Date Zuleima Garcia MD [address] [place] [address] PCP - General Internal Medicine 08/28/24 documented as of this encounter
--- OUTSIDE RECORDS SUMMARY | 2025-02-13 00:33 | External Medical Summary ---
Author Name Unknown Address Unknown Organization K01:LABORATORY [facility] - [address] [place] [address] Laboratory Report Ordering Provider Test Date Status KATRINELBERT 02/06/2025 04:12:00 Final Warfarin Therapy
INR: 2 .0-3.0 conventional anticoagulation
INR: 2.5- 3.5 high intensity anticoagulation Observation Date Value Abnormality Reference (Units ) Status PT 02/06/2025 04:12:00 14.9 11.6-15.2 (seconds) Final INR 02/06/2025 04:12:00 1.2 0.8-1.2 Final Performing Location LABORATORY [facility] - [address] [place] [address]
--- OUTSIDE RECORDS SUMMARY | 2025-02-13 00:33 | External Medical Summary | Summary of Care ---
Author Name Unknown Organization [facility] Address [address] [place] [address] Phone [phone] Care Team Providers Care Tugboat Mate Name Role Phone Zuleima Garcia MD Primary Care Provider + Reason for Visit * Reason Comments Hospital Follow-Up Dosage Adjustment Via Phone (anticoag Cl inic) Encounter Details Date Type Department Care Team (Latest Contact Info) Description 02/05/2025 5:50 PM EDT Anticoagulation Pharmacy, [facility] [address] [place] [address] Pharmacist1, [facility] [address] [place] [address] S/P MVR (mitral valve replacement)*; Prosthetic mitral [...] Active Problems Problem Noted Date Diagnosed Date SSS (sick sinus syndrome) 02/04/2025 S/P MVR [...] mRNA, LNP-s, No Pre serve, 2-Dose Series ([employer]ight[employer]) 11/04/2021,02/14/2021,01/24/2021 Covid-19, Mrna, Lnp-s, Pf, B ivalent, 30 Mcg, IM, 12 yrs and above (Freightos) 08/25/2022 Pneumococcal Conjugate Vacc, 13 Valent (Prevnar) [...] of Assessment Author No 01/27/2025 9:48 PM Mlee Davis RN * Do you have difficulty [...] Assessment Author No 01/27/2025 9:48 PM EST Melissa, J essica L, RN documented as of this encounter Mental Status * Because of a physical, mental, or emotional condition, do you have serious difficulty concentrating, remembering, or making decisions? (5 years old or older) Answer Entry Date Author No 01/27/2025 9:48 PM Mele Davis RN documented in this encounter Progress Notes * Frederick Brooks RPh - 02/05/2025 7:20 AM EDT Patient Phone Numbers Patient still admitted [facility] post MVR. Low platelet count - warfarin has not been started yet. Check daryl discharge Saturday, 02/08. Frederick Reynolds RPh, [facility] Clinical Pharmacist Medication Therapy Management [facility] 02/05/2025, 7:22 AM documented in this encounter Plan of Treatment Upcoming Encounters Date Type Department Care Team (Late st Contact Info) Description 02/08/2025 5:50 PM EDT Anticoagulation Pharmacy, [facility] [address] [facility] [place] [address] Pharmacist1, [facility] [address] [facility] [place] [address] 04/01/2025 9:20 AM EDT Office Visit General Internal Medicine [facility] [address] [place] [address] Zuleima Garcia MD [address] [facility] [address] [place] [address] 04/01/2025 10:30 AM EDT Laboratory [facility], [facility] [address] [phone] Mario Arredondo [address] [address] 04/01/2025 11:00 AM EDT Office Visit Cardiology, [facility] [address] [place] [address] Daiana Anne CRNP 132 [facility] [place] [address] 04/01/2025 11:15 AM EDT Cardiac Studies Cardiac Studies, [facility] [address] [facility] [place] [place] [address] 04/01/2025 2:00 PM EDT Cardiac Studies Cardiac Studies, [facility] [address] [facility] [address] [place] [address] Scheduled Procedures Name Priority Associated Diagnoses Date/Ti [...] D LEVEL ONCE IN A LIFETIME-USE SMARTSET# [id number] Completed 01/12/2023, 06/03/2021, 08/16/2018 Influenza Vaccine (FLU [...] this encounter Medical Devices Implanted Type Area Fleece Tier Device Identifier Shelf Expiration Date Model / Serial / Lot Cath Thermodilution 6fr - [id number] Implanted:Qty: 1 on 01/18/2025 by Melinda Jin MD at [facility] [employer] [id number] 06/24/2026 [id number] / / [id number] Cath Iabp Sensation 40cc Fiber - [id number] Implanted:Qty: 1 on 01/27/2025 by Nelson Mariee MD at [facility] [employer] : MAQUET [id number] 06/05/2027 0684-00- 0568-01U / / [id number] 29 Catheter Angio Pigtail Curve 5fr X 110cm Without Sideholes Impulse - [id number] Implanted:Qty: 1 on 01/27/2025 by Nelson Mariee MD at [facility] [employer] : INTRV CARD [id number] 08/07/2026 [id number] 1402 / / [id number] Valve Mitral Size 29 Mm Non Rotatable Porcine Bioprosthesis [facility] - [id number] - [id number] Implanted:Qty: 1 on 02/02/2025 by Jonathan House MD at [place] [facility] Left: Heart [employer] : CARDIAC SURGERY [id number] 08/11/2029 [id number] / [id number] / [id number] Suture Steel 6 B&S19 M654g - [id number] Implanted:Qty: 4 on 02/02/2025 by Jonathan House MD at [place] [facility] N/A: Sternum JNJ : [employer] 08/24/2029 M654G / / [id number] Valve Heart Aortic Mag Eas 23m - [id number] - [id number] Implanted:Qty: 1 on 02/02/2025 by Jonathan House MD at [place] [facility] N/A: Aorta [employer] [id number] 05/31/2028 [id number] 3MM / [id number] / [id number] Suture Steel 6 B&S19 M654g - [id number] Implanted:Qty: 3 on 02/02/2025 by Jonathan House MD at [place] [facility] N/A: Sternum JNJ : [employer] 02/22/2029 [...] Discussed due to patient's condition Care Teams Tugboat Mate Relationship Specialty Start Date End Date Zuleima Garcia MD [address] [facility] [place] [address] PCP - General Internal Medicine 08/28/24 documented as of this encounter
--- OUTSIDE RECORDS SUMMARY | 2025-02-13 00:33 | External Medical Summary ---
Author Name Unknown Address Unknown Organization K01:LABORATORY C - [address] [place] [address] Laboratory Report Ordering Provider Test Date Status ELBERT WILKES 02/06/2025 04:11:00 Final Observation Date Value Abnormality Reference (Units ) Status Magnesium 02/06/2025 04:11:00 2.3 1.5-2.6 (m g/dL) Final Performing Location [facility] - [address] [place] [address]
--- OUTSIDE RECORDS SUMMARY | 2025-02-13 00:33 | External Medical Summary ---
Author Name Unknown Address Unknown Organization K01:LABORATORY [facility] - [address] [place] [address] Laboratory Report Ordering Provider Test Date Status ELBERT WILKES 02/07/2025 04:02:00 Final Observation Date Value Abnormality Reference (Units ) Status Magnesium 02/07/2025 04:02:00 1.9 1.5-2.6 (m g/dL) Final Performing Location LAB[facility] - [address] [place] [address]
--- OUTSIDE RECORDS SUMMARY | 2025-02-13 00:33 | External Medical Summary ---
Author Name Unknown Address Unknown Organization K01:LABORATORY [facility] - [address] [place] [address] Laboratory Report Ordering Provider Test Date Status KATRINELBERT 02/07/2025 04:02:00 Final Warfarin Therapy
INR: 2 .0-3.0 conventional anticoagulation
INR: 2.5- 3.5 high intensity anticoagulation Observation Date Value Abnormality Reference (Units ) Status PT 02/07/2025 04:02:00 14.9 11.6-15.2 (seconds) Final INR 02/07/2025 04:02:00 1.2 0.8-1.2 Final Performing Location LABORATORY [facility] - [address] [place] [address]
--- OUTSIDE RECORDS SUMMARY | 2025-02-13 00:34 | External Medical Summary ---
Author Name Unknown Address Unknown Organization K01:LABORATORY [facility] - [address] [facility] [address] Laboratory Report Ordering Provider Test Date Status ELBERT WILKES 02/05/2025 04:00:16 Final Observation Date Value Abnormality Reference (Units ) Status SYNC LEUKOCYTES IN BLOOD BY AUTOMATED COUNT 02/05/2025 04:00:16 7.57 4.00-10.80 (K/uL) Final Segs 02/05/2025 04:00:16 81.6 Above high normal 40.0-75.0 (%) Final Lymphs % 02/05/2025 04:00:16 5.3 Below low normal 18.0-42.0 (%) Final Monos 02/05/2025 04:00:16 9.9 1.0-11.0 (%) Final Eosinophils 02/05/2025 04:00:16 2.0 0.0-6.0 (%) Final Basos 02/05/2025 04:00:16 0.1 0.0-2.0 (%) Final Immature Granulocyte, Percent 02/05/2025 04:00:16 1.1 0.0-2.0 (%) Final Absolute Segs 02/05/2025 04:00:16 6.18 1.80-7.70 (K/uL) Final Lymphs, absolute 02/05/2025 04:00:16 0.40 Below low normal 1.00-4.80 (K/ul) Final Monos, Abs 02/05/2025 04:00:16 0.75 0.00-1.10 (K/uL) Final Eos, Abs 02/05/2025 04:00:16 0.15 0.00-0.70 (K/uL) Final Basos, Abs 02/05/2025 04:00:16 0.01 0.00-0.20 (K/uL) Final Immature Granulocytes, Number 02/05/2025 04:00:16 0.08 0.00-0.20 (K/uL) Final Performing Location LABOR[facility]ORY [facility] [place] [facility] [place] [address]
--- OUTSIDE RECORDS SUMMARY | 2025-02-13 00:34 | External Medical Summary ---
Author Name Unknown Address Unknown Organization K01:LABORATORY [facility] - [address] [place] [address] Laboratory Report Ordering Provider Test Date Status SUYAPA OSPINA 02/05/2025 04:00:16 Final Observation Date Value Abnormality Reference (Units ) Status Haptoglobin 02/05/2025 04:00:16 <10 Below low normal 3 0-200 (mg/dL) Final Performing Location LABORATORY [facility] - [address] [facility] [address]
--- OUTSIDE RECORDS SUMMARY | 2025-02-13 00:34 | External Medical Summary ---
Author Name Unknown Address Unknown Organization K01:LABORATORY [facility] - [address] [facility] [address] Laboratory Report Ordering Provider Test Date Status ELBERT WILKES 02/04/2025 03:10:59 Final Observation Date Value Abnormality Reference (Units ) Status SYNC LEUKOCYTES IN BLOOD BY AUTOMATED COUNT 02/04/2025 03:10:59 6.12 4.00-10.80 (K/uL) Final Segs 02/04/2025 03:10:59 75.6 Above high normal 40.0-75.0 (%) Final Lymphs % 02/04/2025 03:10:59 9.0 Below low normal 18.0-42.0 (%) Final Monos 02/04/2025 03:10:59 12.1 Above high normal 1.0-11.0 (%) Final Eosinophils 02/04/2025 03:10:59 2.3 0.0-6.0 (%) Final Basos 02/04/2025 03:10:59 0.2 0.0-2.0 (%) Final Immature Granulocyte, Percent 02/04/2025 03:10:59 0.8 0.0-2.0 (%) Final Absolute Segs 02/04/2025 03:10:59 4.63 1.80-7.70 (K/uL) Final Lymphs, absolute 02/04/2025 03:10:59 0.55 Below low normal 1.00-4.80 (K/ul) Final Monos, Abs 02/04/2025 03:10:59 0.74 0.00-1.10 (K/uL) Final Eos, Abs 02/04/2025 03:10:59 0.14 0.00-0.70 (K/uL) Final Basos, Abs 02/04/2025 03:10:59 0.01 0.00-0.20 (K/uL) Final Immature Granulocytes, Number 02/04/2025 03:10:59 0.05 0.00-0.20 (K/uL) Final Performing Location LABORATORY [facility] - [facility] [place] [address]
--- OUTSIDE RECORDS SUMMARY | 2025-02-13 00:34 | External Medical Summary ---
Author Name Unknown Address Unknown Organization K01:LABORATORY C - [address] [place] [address] Laboratory Report Ordering Provider Test Date Status ELBERT WILKES 02/04/2025 03:10:59 Final Observation Date Value Abnormality Reference (Units ) Status Magnesium 02/04/2025 03:10:59 2.4 1.5-2.6 (m g/dL) Final Performing Location LAB[facility]ORY [facility] - [address] [place] [address]
--- OUTSIDE RECORDS SUMMARY | 2025-02-13 00:34 | External Medical Summary ---
Author Name Unknown Address Unknown Organization K01:LABORATORY C - [address] [place] [address] Laboratory Report Ordering Provider Test Date Status ELBERT WILKES 02/05/2025 04:00:16 Final Observation Date Value Abnormality Reference (Units ) Status Magnesium 02/05/2025 04:00:16 2.3 1.5-2.6 (m g/dL) Final Performing Location [facility] - [address] [place] [address]
--- OUTSIDE RECORDS SUMMARY | 2025-02-13 00:34 | External Medical Summary ---
Author Name Unknown Address Unknown Organization K01:LABORATORY [facility] [place] - [facility] [address] [facility] [address] Laboratory Report Ordering Provider Test Date Status ELBERT WILKES 02/04/2025 03:10:59 Final Observation Date Value Abnormality Reference (Units ) Status BUN 02/04/2025 03:10:59 39 Above high normal 6-20 (mg/dL) Final Creatinine 02/04/2025 03:10:59 2.8 Above high normal 0.5-1.0 (mg/dL) Final Glomerular filtration rate/1.73 sq M.predicted [Volume Rate/Area] in Serum, Plasma or Blood by Creatinine-based formula (CKD-EPI) 02/04/2025 03:10:59 17 Below low normal >=60 (mL/min) Final eGFR is calculated based on the CKD-EPI 2020 equation. Sodium 02/04/2025 03:10:59 138 135-146 (m mol/L) Final Potassium 02/04/2025 03:10:59 3.7 3.5-5.1 (m mol/L) Final Cl 02/04/2025 03:10:59 101 98-107 (mm ol/L) Final CO2 02/04/2025 03:10:59 21 Below low normal 22- 32 (mmol/L) Final Anion gap 02/04/2025 03:10:59 16 Above high normal 7- 15 (mmol/L) Final Glucose 02/04/2025 03:10:59 133 Above high normal 70 -120 (mg/dL) Final Calcium 02/04/2025 03:10:59 8.8 8.4-10.2 ( mg/dL) Final Performing Location LABORATORY [facility] – [place] - [facility] [address] [facility] [address]
--- OUTSIDE RECORDS SUMMARY | 2025-02-13 00:34 | External Medical Summary ---
Author Name Unknown Address Unknown Organization K01:[place] [facility] [place] [address] [place] [address] Laboratory Report Ordering Provider Test Date Status SUYAPA OSPINA 02/05/2025 04:00:16 Final Observation Date Value Abnormality Reference (Units ) Status IgG 02/05/2025 04:00:16 4532 368-4647 ( mg/dL) Final IgA 02/05/2025 04:00:16 56 Below low normal 70- 400 (mg/dL) Final IgM 02/05/2025 04:00:16 29 Below low normal 40- 230 (mg/dL) Final Performing Location [place] [facility] [place] [address] [place] [address]
--- OUTSIDE RECORDS SUMMARY | 2025-02-13 00:34 | External Medical Summary ---
Author Name Unknown Address Unknown Organization K01:LABORATORY [facility] [place] - [facility] [address] [facility] [facility] [address] [facility] [address] [facility] [address] Laboratory Report Ordering Provider Test Date Status ELBERT WILKES 02/05/2025 04:00:16 Final Observation Date Value Abnormality Reference (Units ) Status BUN 02/05/2025 04:00:16 49 Above high normal 6-20 (mg/dL) Final Creatinine 02/05/2025 04:00:16 3.2 Above high normal 0.5-1.0 (mg/dL) Final Glomerular filtration rate/1.73 sq M.predicted [Volume Rate/Area] in Serum, Plasma or Blood by Creatinine-based formula (CKD-EPI) 02/05/2025 04:00:16 15 Below low normal >=60 (mL/min) Final eGFR is calculated based on the CKD-EPI 2020 equation. Sodium 02/05/2025 04:00:16 139 135-146 (m mol/L) Final Potassium 02/05/2025 04:00:16 3.6 3.5-5.1 (m mol/L) Final Cl 02/05/2025 04:00:16 102 98-107 (mm ol/L) Final CO2 02/05/2025 04:00:16 22 22-32 (mmo l/L) Final Anion gap 02/05/2025 04:00:16 15 7-15 (mmol /L) Final Glucose 02/05/2025 04:00:16 98 70-120 (mg /dL) Final Calcium 02/05/2025 04:00:16 8.5 8.4-10.2 ( mg/dL) Final Performing Location LAB[facility]ATORY [facility] [place] - [address] [facility] [address]
--- OUTSIDE RECORDS SUMMARY | 2025-02-13 00:34 | External Medical Summary ---
Author Name Unknown Address Unknown Organization K01:[place] [facility] [place] [address] [place] [address] Laboratory Report Ordering Provider Test Date Status IKERAVILINDY 02/05/2025 04:00:16 Final Observation Date Value Abnormality Reference (Units ) Status LDH 02/05/2025 04:00:16 844 Above high normal <= 250 (U/L) Final Performing Location [facility] - [address] [place] [address]
--- OUTSIDE RECORDS SUMMARY | 2025-02-13 00:34 | External Medical Summary ---
Author Name Unknown Address Unknown Organization : Laboratory Report Ordering Provider Test Date Status ELAINA DIEZ 02/04/2025 12:01:35 Final Observation Date Value Abnormality Reference (Units ) Status Glucose Point of Care 02/04/2025 12:01:35 124 Above high normal 70-120 (mg/dL) Final Performing Location
--- OUTSIDE RECORDS SUMMARY | 2025-02-13 00:34 | External Medical Summary | Summary of Care ---
Author Name Unknown Organization [facility] Address [address] [place] [address] Phone [phone] Care Team Providers Care Fixture Repairer Fabricator Name Role Phone Zuleima Garcia MD Primary Care Provider + Reason for Visit * Reason Comments Hospital Follow-Up Dosage Adjustment Via Phone (anticoag Cl inic) * Evaluate & Treat - Unlimited Visits (Within 3 days (urgent)) - Authorized Specialty Diagnoses / Procedures Referred By Contdelfina t Referred To Contact ANTI-COAG CLINIC / Pharmacy Diagnoses Prosthetic mitral valve regurgitation, sequela S/P MVR (mitral valve replacement) Darya Coto CRNP [address] [place] [address] Phone: tel: fax: Referral ID Status Reason Start Date Expiration Date Visits Requested Visits Authorized [id number] Authorized Specialty Services Required 02/02/2025 2025 99 99 Encounter Details Date Type Department Care Team (Latest Contact Info) Description 02/03/2025 5:10 PM EDT Anticoagulation Pharmacy, [facility] [address] [place] [address] [place] [address] Pharmacist1, [facility] [address] [place] [address] S/P MVR (mitral valve replacement)*; Prosthetic mitral [...] as of this encounter (statuses as of 02/03/2025) Medications Ferrous Sulfate 325 (65 Fe) MG [...] MG Oral Tablet (Eliquis)Indica tions:Paroxysma l A-fib ([facility]) Take 1 Tablet by mouth in the [...] with preserved ejection fraction, unspecified HF chronicity ([facility]) If no improvement on day 3, contact heart failure managing provider. 1 Each 11/16/20 24 Suspended Furosemide 20 MG Oral Tablet (Lasix)Indicati ons:Acute on chronic HFrEF (heart failure with reduced ejection fraction) ([facility]) Two tablets by mouth daily with an extra dose as needed for weight gain or worsening leg swelling 210 Tablet 3 11/19/20 24 Suspended Digoxin 125 MCG Oral Tablet (Lanoxin) Take 1 Tablet by mouth in the morning. 90 Tablet 3 11/19/20 24 Suspended documented as of this encounter (statuses as of 02/03/2025) Active Problems Problem Noted Date Diagnosed Date S/P MVR (mitral valve replacement) 02/02/2025 Prosthetic [...] as of this encounter (statuses as of 02/03/2025) Resolved Problems Problem Noted Date Diagnosed Date Resolved Date HTN, goal below 130/80 08/12/201808/16 documented as of this encounter (statuses as of 02/03/2025) Immunizations Name Administration Dates Next Due COVID-19 mRNA, LNP-s, No Pre serve, 2-Dose Series (Open Me) 11/04/2021,02/14/2021,01/24/2021 Covid-19, Mrna, Lnp-s, Pf, B ivalent, [...] 08/05/2024 Does the household have a re lar source of income? (Household - for ages [...] Progress Notes * Frederick Brooks RPh - 02/03/2025 8:54 AM EDT Patient Phone Numbers Patient had MVR surgery at [facility] 01/27. Coumadin started post-op. 3 month therapy - end date 05/05/25 Indication for Anticoagulation: Diagnosis: Bioprosthetic MVR Relevant History: Cancer Home Phlebotomy Required: No. Initiation date of anticoagulation: 02/03/2025. Expected duration of Anticoagulation therapy: 3 months. Target INR range (indicate desired range): Prevent systemic embolism: Tissue heart valves, AMI, Valvular heart disease 2.0 - 3.0 Patient still admitted to [facility]. Check for discharge 02/05 Frederick Reynolds RPh, [facility] Clinical Pharmacist Medication Therapy Management Clinic 02/03/2025, 9:20 AM documented in this encounter Plan of Treatment Upcoming Encounters Date Type Department Care Team (Late st Contact Info) Description 02/05/2025 5:50 PM EDT Anticoagulation Pharmacy, [facility] [address] [place] [address] Pharmacist1, [facility] [address] [place] [address] 04/01/2025 9:20 AM EDT Office Visit General Internal Medicine [facility] [address] [facility] [place], [place] [address] Zuleima Garcia MD [address] [facility] [place] [address] 04/01/2025 10:30 AM EDT Laboratory Laboratory, [facility] [address] [place] [phone] [facility] [address] [facility] [address] 04/01/2025 11:00 AM EDT Office Visit Cardiology, [facility] [address] [place] [address] Daiana Anne CRNP [address] [facility] [place] [address] 04/01/2025 11:15 AM EDT Cardiac Studies Cardiac Studies, [facility] [address] [facility] [address] 04/01/2025 2:00 PM EDT Cardiac Studies Cardiac Studies, [facility] [address] [facility] [address] Scheduled Procedures Name Priority Associated Diagnoses Date/Ti me COLONOSCOPY FLEXIBLE PROXIMA L DIAGNOSTIC Recall Iron deficiency anemia due to chronic blood loss Scheduled Referrals Name Type Priority Associated Diagnoses Orde r Schedule ANTI-COAGULATION REFERRAL OP Referral Within 3 days (urgent) Prosthetic mitral valve regurgitation, sequela S/P MVR (mitral valve replacement) Ordered: 02/02/2025 Health Maintenance Due Date Last Done Comments Fecal Occult Blood Test 1996 Sigmoidoscopy 1996 Cologuard 08/28/2021 08/28/2018 COVID-19 Vaccine ( season) 2024 10/13/2023, 08/25/2022, 04/13/2022, Additional history exists Depression Screening 09/17/2025 09/17/2024, 08/12/20 24 Mammogram 10/01/2025 10/01/2024, 07/27, 08/14/2023, Additional history exists GFR 02/03/2026 02/03/2025, 01/23, 02/02/2025, Additional history exists DXA Scan 09/17/2026 09/17/2024 Albumin/Creatinine Ratio 01/29/2028 025, 11/03/2022, 06/21/2020 DTap/Tdap Vaccines (2 - Td or Tdap) 05/10/2028 05/10/2018 Lipid Panel 01/19/2030 01/19/2025, 02/23, 08/24/2023, Additional history exists Colonoscopy 08/07/2031 08/07/2021, 08/07/2021 Colorectal Cancer Screening 08/07/2031 Pneumococcal Vaccine: 50+ Years Completed 05/10/2018, 05/10/2018 Zoster Vaccines Completed 06/09/2018, 05/10/2018 VITAMIN D LEVEL ONCE IN A LIFETIME-USE SMARTSET# [id number] Completed 01/12/2023, 06/03/2021, 08/16/2018 Influenza Vaccine (FLU [...] this encounter Medical Devices Implanted Type Area Commercial Energy Rater Device Identifier Shelf Expiration Date Model / Serial / Lot Cath Thermodilution 6fr - [id number] Implanted:Qty: 1 on 01/18/2025 by Melinda Jin MD at [facility]ARDIAC LABS [facility] [employer] DARYL [id number] 06/24/2026 [id number] / / [id number] Cath Iabp Sensation 40cc Fiber - [id number] Implanted:Qty: 1 on 01/27/2025 by Nelson Mariee MD at CARDIAC LABS [facility] GETINGE : ISELA [id number] 06/05/2027 0684-00- 0568-01U / / [id number] 29 Catheter Angio Pigtail Curve 5fr X 110cm Without Sideholes Impulse - [id number] Implanted:Qty: 1 on 01/27/2025 by Nelson Mariee MD at [facility]ARDIAC LABS [facility] [employer] : INTRV CARD [id number] 08/07/2026 [id number] 1402 / / [id number] Valve Mitral Size 29 Mm Non Rotatable Porcine Bioprosthesis Mosaic - [id number] - [id number] Implanted:Qty: 1 on 02/02/2025 by Jonathan House MD at OR [facility] Left: Heart [employer] : CARDIAC SURGERY [id number] 08/11/2029 [id number] / [id number] / [id number] Suture Steel 6 B&S19 M654g - [id number] Implanted:Qty: 4 on 02/02/2025 by Jonathan House MD at OR [facility] N/A: Sternum JNJ : [employer] 08/24/2029 M654G / / [id number] Valve Heart Aortic Mag Eas 23m - [id number] - [id number] Implanted:Qty: 1 on 02/02/2025 by Jonathan House MD at OR [facility] N/A: Aorta [employer] DARYL [id number] 05/31/2028 [id number] 3MM / [id number] / [id number] Suture Steel 6 B&S19 M654g - [id number] Implanted:Qty: 3 on 02/02/2025 by Jonathan House MD at OR [facility] N/A: Sternum JNJ : [employer] 02/22/2029 [...] Discussed due to patient's condition Care Teams Fixture Repairer Fabricator Relationship Specialty Start Date End Date Zuleima Garcia MD [address] [facility] [place] [address] PCP - General Internal Medicine 08/28/24 documented as of this encounter
--- OUTSIDE RECORDS SUMMARY | 2025-02-13 00:34 | External Medical Summary ---
Author Name Unknown Address Unknown Organization K01:[place] [facility] [place] [facility] [address] [facility] [address] Laboratory Report Ordering Provider Test Date Status ELBERT WILKES 02/04/2025 03:10:59 Final Observation Date Value Abnormality Reference (Units ) Status WBC, Total 02/04/2025 03:10:59 6.12 4.00-10.80 (K/uL) Final RBC 02/04/2025 03:10:59 2.45 3.85-5.15 (M/uL) Final Hemoglobin 02/04/2025 03:10:59 7.5 Below low normal 12.0-15.3 (g/dL) Final HCT 02/04/2025 03:10:59 22.8 Below low normal 36.0-45.2 (%) Final MCV 02/04/2025 03:10:59 93.1 81.5-97.5 (fL) Final MCH 02/04/2025 03:10:59 30.6 27.0-34.0 (pg) Final MCHC 02/04/2025 03:10:59 32.9 32.0-36.0 (g/dL) Final RDW 02/04/2025 03:10:59 16.4 11.5-15.5 (%) Final Platelets 02/04/2025 03:10:59 32 Below low normal 140-400 (K/uL) Final MPV 02/04/2025 03:10:59 13.7 6.6-11.1 (fL) Final Nucleated erythrocytes/100 leukocytes [Ratio] in Blood by Automated count 02/04/2025 03:10:59 1 Above high normal <=0 (/100 WBCs) Final Performing Location [place] [facility] [place] [address] [place] [address]
--- OUTSIDE RECORDS SUMMARY | 2025-02-13 00:34 | External Medical Summary | Summary of Care ---
Author Name Unknown Organization [facility] Address [address] [place] [address] Phone [phone] Care Team Providers Care Seo Specialist Name Role Phone Zuleima Garcia MD Primary Care Provider + Reason for Visit * Auth/Cert Specialty Diagnoses / Procedures Referred By Contac t Referred To Contact Diagnoses Mitral valve regurgitation Mitral valve regurgitation [I34.0] Procedures TRANSCATHETER MITRAL VALVE IMPLANT PERCUTANEOUS APPROACH TRANSCATHETER MITRAL VALVE IMPLANT PERCUTANEOUS APPROACH TRANSCATHETER MITRAL VALVE IMPLANTATION/REPLACEMENT (TMVI) WITH PROSTHETIC VALVE; PERCUTANEOUS APPROACH, INCLUDING TRANSSEPTAL PUNCTURE, WHEN PERFORMED TRANSCATHETER MITRAL VALVE IMPLANTATION/REPLACEMENT (TMVI) WITH PROSTHETIC VALVE; PERCUTANEOUS APPROACH, INCLUDING TRANSSEPTAL PUNCTURE, WHEN PERFORMED Nelson Mariee MD [address] [place] [address] Phone: tel: fax: [place] [facility] [facility] [place] Cardiac Recovery Suite Waiting Unit, [address] [place] [address] Phone: tel: Referral ID Status Reason Start Date Expiration Date Visits Re quested Visits Authorized [id number] Encounter Details Date Type Department Care Team (Latest Contact Info) Description 02/02/2025 1:48 PM EDT - 02/02/2025 1:56 PM EDT Hospital Encounter Cardiac Studies [facility] [address] [place] [address] Discharge Disposition: Home - Self Care Allergies Active Allergy Reactions Criticality Noted Date [...] mRNA, LNP-s, No Pre serve, 2-Dose Series (Qinti) 11/04/2021,02/14/2021,01/24/2021 Covid-19, Mrna, Lnp-s, Pf, B ivalent, [...] Entry Date Author No 01/27/2025 9:48 PM Isabella Davis RN documented in this encounter Plan of Treatment Upcoming Encounters Date Type Department Care Team (Late st Contact Info) Description 02/05/2025 5:50 PM EDT Anticoagulation Pharmacy, [facility] [address] [place] [address] Pharmacist1, [facility] [address] [place] [address] 04/01/2025 9:20 AM EDT Office Visit General Internal Medicine [facility] [address] [place] [address] Zuleima Garcia MD [address] [place] [address] 04/01/2025 10:30 AM EDT Laboratory Laboratory, [facility] [address] [phone] Mario Arredondo [address] [address] 04/01/2025 11:00 AM EDT Office Visit Cardiology, [facility] [address] [place] [address] Daiana Anne CRNP 132 [facility] [place] [address] 04/01/2025 11:15 AM EDT Cardiac Studies Cardiac Studies, [facility] [address] [facility] [place] [address] 04/01/2025 2:00 PM EDT Cardiac Studies Cardiac Studies, [facility] [address] [facility] [place] [address] Scheduled Procedures Name Priority Associated Diagnoses Date/Ti [...] D LEVEL ONCE IN A LIFETIME-USE SMARTSET# [id number] Completed 01/12/2023, 06/03/2021, 08/16/2018 Influenza Vaccine (FLU [...] this encounter Medical Devices Implanted Type Area Copper Miner Device Identifier Shelf Expiration Date Model / Serial / Lot Cath Thermodilution 6fr - [id number] Implanted:Qty: 1 on 01/18/2025 by Melinda Jin MD [place] [facility] [place] [employer] DARYL [id number] 06/24/2026 [id number] / / [id number] Cath Iabp Sensation 40cc Fiber - [id number] Implanted:Qty: 1 on 01/27/2025 by Nelson Mariee MD at [facility] [facility] [place] GETINGE : MAQUET [id number] 06/05/2027 0684-00- 0568-01U / / [id number] 29 Catheter Angio Pigtail Curve 5fr X 110cm Without Sideholes Impulse - [id number] Implanted:Qty: 1 on 01/27/2025 by Nelson Mariee MD at [place] [facility] [place] [employer] : INTRV CARD [id number] 08/07/2026 [id number] / / [id number] Valve Mitral Size 29 Mm Non Rotatable Porcine Bioprosthesis [facility] - [id number] - [id number] Implanted:Qty: 1 on 02/02/2025 by Jonathan House MD [place] [facility] [place] Left: Heart [employer] : CARDIAC SURGERY [id number] 08/11/2029 [id number] / [id number] / [id number] Suture Steel 6 B&S19 M654g - [id number] Implanted:Qty: 4 on 02/02/2025 by Jonathan House MD [place] [facility] [place] N/A: Sternum JNJ : [employer] 08/24/2029 M654G / / [id number] Valve Heart Aortic Mag Eas 23m - [id number] - [id number] Implanted:Qty: 1 on 02/02/2025 by Jonathan House MD [place] [facility] [place] N/A: Aorta [employer] DARYL [id number] 05/31/2028 [id number] 3MM / [id number] / [id number] Suture Steel 6 B&S19 M654g - [id number] Implanted:Qty: 3 on 02/02/2025 by Jonathan House MD [place] [facility] [place] N/A: Sternum JNJ : [employer] 02/22/2029 M654G / / [id number] Explanted Type Area Copper Miner Device Identifier Shelf Expiration Date Model / Serial / Lot Valve Transcath Resilia 29mm - [id number] Implanted:Qty: 1 on 01/27/2025 by Nelson Mariee MD at [place] [facility] [place]planted:Qty: 1 on 02/02/2025 at [place] [facility] [place] [employer] [id number] 09/17/2027 [id number] / / [id number] documented as of this encounter Procedures Procedure Name Priority Date/Time Associated Diagnosis Comments ND ECHO TRANSESOPHAG R-T 2D IMG ACQUISJ I&R ONLY Routine 02/02/2025 1:48 PM EDT Valvular heart disease documented in this encounter Results * CV ECHO, JUAN JOSE INTRAOPERATIVE (02/02/2025 1:48 PM EDT) LEFT VENTRICULAR EJECTION FRACTION 50 % [facility] 02/02/2025 5:13 AM EDT Aldair Zuniga DO ECHOCARDIOLOGY Final Result [facility] documented in this encounter Advance Directives * [...] Discussed due to patient's condition Care Teams Seo Specialist Relationship Specialty Start Date End Date Zuleima Garcia MD [address] [place] [address] PCP - General Internal Medicine 08/28/24 documented as of this encounter
--- OUTSIDE RECORDS SUMMARY | 2025-02-13 00:34 | External Medical Summary ---
Author Name Unknown Address Unknown Organization K01:LABORATORY [place] [address] [place] [address] Laboratory Report Ordering Provider Test Date Status SUYAPA OSPINA 02/05/2025 04:00:16 Final Observation Date Value Abnormality Reference (Units ) Status Retic, % (auto) 02/05/2025 04:00:16 7.90 Above high normal 0.80-1.90 (%) Final Reticulocytes, Absolute 02/05/2025 04:00:16 229.9 Above high normal 31.3-100.1 (K/uL) Final Reticulocyte fraction, immature 02/05/2025 04:00:16 38.6 Above high normal 2.5-20.6 (%) Final Reticulocyte HGB 02/05/2025 04:00:16 35.5 29.7-37.4 (pg) Final Performing Location LABORATORY [facility] - [facility] [address] [facility] [place] [address]
--- OUTSIDE RECORDS SUMMARY | 2025-02-13 00:34 | External Medical Summary ---
Author Name Unknown Address Unknown Organization : Laboratory Report Ordering Provider Test Date Status ELAINA DIEZ 02/03/2025 21:54:48 Final Observation Date Value Abnormality Reference (Units ) Status Glucose Point of Care 02/03/2025 21:54:48 130 Above high normal 70-120 (mg/dL) Final Performing Location
--- OUTSIDE RECORDS SUMMARY | 2025-02-13 00:34 | External Medical Summary ---
Author Name Unknown Address Unknown Organization K01:[place] [facility] [place] [address] [place] [address] Laboratory Report Ordering Provider Test Date Status ELBERT WILKES 02/05/2025 04:00:16 Final Observation Date Value Abnormality Reference (Units ) Status WBC, Total 02/05/2025 04:00:16 7.57 4.00-10.80 (K/uL) Final RBC 02/05/2025 04:00:16 2.94 3.85-5.15 (M/uL) Final Hemoglobin 02/05/2025 04:00:16 9.0 Below low normal 12.0-15.3 (g/dL) Final HCT 02/05/2025 04:00:16 28.2 Below low normal 36.0-45.2 (%) Final MCV 02/05/2025 04:00:16 95.9 81.5-97.5 (fL) Final MCH 02/05/2025 04:00:16 30.6 27.0-34.0 (pg) Final MCHC 02/05/2025 04:00:16 31.9 32.0-36.0 (g/dL) Final RDW 02/05/2025 04:00:16 18.8 11.5-15.5 (%) Final Platelets 02/05/2025 04:00:16 36 Below low normal 140-400 (K/uL) Final MPV 02/05/2025 04:00:16 12.0 6.6-11.1 (fL) Final Nucleated erythrocytes/100 leukocytes [Ratio] in Blood by Automated count 02/05/2025 04:00:16 0 <=0 (/100 WBCs) Final Performing Location [place] [facility] [place] [place] [address] [place] [address]
--- OUTSIDE RECORDS SUMMARY | 2025-02-13 00:34 | External Medical Summary ---
Author Name Unknown Address Unknown Organization K01:[facility]ORY [facility] [place] [address] [place] [address] Laboratory Report Ordering Provider Test Date Status JOANNSALVADOR 02/04/2025 16:16:40 Final Observation Date Value Abnormality Reference (Units ) Status ABO 02/04/2025 16:16:40 O Final RH 02/04/2025 16:16:40 Positive Final RED BLOOD CELL ANTIBODY SCREEN 02/04/2025 16:16:40 Negative Final SPECIMEN EXPIRATION DATE 02/04/2025 16:16:40 02/07/2025 23:59 Final Performing Location [facility] [place] [address] [place] [address]
--- OUTSIDE RECORDS SUMMARY | 2025-02-13 00:34 | External Medical Summary | Summary of Care ---
Author Name Unknown Organization [facility] Address [address] [place] [address] Phone [phone] Care Team Providers Care Animal Attendants And Trainers Name Role Phone Zuleima Garcia MD Primary [...] WHEN PERFORMED Nelson Mariee MD [address] [place] [address] Phone: tel: fax: CRS Waiting [facility], Cardiac Recovery Suite Waiting Unit, [address] [place] [address] Phone: tel: Referral ID Status Reason Start Date Expiration Date Visits Re quested Visits Authorized [id number] Encounter Details Date Type Department Care Team (Latest Contact Info) Description 02/02/2025 1:57 PM EDT - 02/02/2025 11:59 PM EDT Hospital Encounter Cardiac Studies [facility] [address] [place] [address] Discharge Disposition: Home - Self [...] mRNA, LNP-s, No Pre serve, 2-Dose Series ([employer]) 11/04/2021,02/14/2021,01/24/2021 Covid-19, Mrna, Lnp-s, Pf, B ivalent, [...] Description 02/05/2025 5:50 PM EDT Anticoagulation Pharmacy, [facility] [address] [place] [address] Pharmacist1, [facility] [address] [place] [address] 04/01/2025 9:20 AM EDT Office Visit General Internal Medicine [facility] [address] [place] [address] Zuleima Garcia MD [address] [place] [address] 04/01/2025 10:30 AM EDT Laboratory Laboratory, [facility] [address] [id number] Mario Arredondo [address] [address] 04/01/2025 11:00 AM EDT Office Visit Cardiology, [facility] [place] [address] [place] [address] Daiana Anne CRNP 132 [facility] [place] [address] 04/01/2025 11:15 AM EDT Cardiac Studies Cardiac Studies, [facility] [address] [facility] [place] [address] 04/01/2025 2:00 PM EDT Cardiac Studies Cardiac Studies, [facility] [address] [facility] [place] [address] Scheduled Procedures Name Priority Associated Diagnoses Date/Ti [...] D LEVEL ONCE IN A LIFETIME-USE SMARTSET# [id number] Completed 01/12/2023, 06/03/2021, 08/16/2018 Influenza Vaccine (FLU [...] this encounter Medical Devices Implanted Type Area Tmd Teacher Assistant Device Identifier Shelf Expiration Date Model / Serial / Lot Cath Thermodilution 6fr - [id number] Implanted:Qty: 1 on 01/18/2025 by Melinda Jin MD at CARDIAC LABS [facility] [employer] [id number] 06/24/2026 [id number] / / [id number] Cath Iabp Sensation 40cc Fiber - [id number] Implanted:Qty: 1 on 01/27/2025 by Nelson Mariee MD at CARDIAC LABS [facility] [employer] : MAQUET [id number] 06/05/2027 [id number] / / [id number] 29 Catheter Angio Pigtail Curve 5fr X 110cm Without Sideholes Impulse - [id number] Implanted:Qty: 1 on 01/27/2025 by Nelson Mariee MD at CARDIAC LABS [facility] [employer] : INTRV CARD [id number] 08/07/2026 [id number] / / [id number] Valve Mitral Size 29 Mm Non Rotatable Porcine Bioprosthesis [facility] - [id number] - [id number] Implanted:Qty: 1 on 02/02/2025 by Jonathan House MD at OR [facility] Left: Heart [employer] : CARDIAC SURGERY [id number] 08/11/2029 [id number] / [id number] / [id number] Suture Steel 6 B&S19 M654g - [id number] Implanted:Qty: 4 on 02/02/2025 by Jonathan House MD at OR [facility] N/A: Sternum JNJ : [employer] 08/24/2029 [id number] / / [id number] Valve Heart Aortic Mag Eas 23m - [id number] - [id number] Implanted:Qty: 1 on 02/02/2025 by Jonathan House MD at OR [facility] N/A: Aorta [employer] [id number] 05/31/2028 [id number] 3MM / [id number] / [id number] Suture Steel 6 B&S19 M654g - [id number] Implanted:Qty: 3 on 02/02/2025 by Jonathan House MD at OR [facility] N/A: Sternum JNJ : [employer] 02/22/2029 [id number] / / [id number] Explanted Type Area Tmd Teacher Assistant Device Identifier Shelf Expiration Date Model / Serial / Lot Valve Transcath Resilia 29mm - [id number] Implanted:Qty: 1 on 01/27/2025 by Nelson Mariee MD at CARDIAC LABS [facility] Explanted:Qty: 1 on 02/02/2025 at OR [facility] [place] [id number] 09/17/2027 [id number] / / [id number] documented as of this encounter Procedures Procedure Name Priority Date/Time Associated Diagnosis Comments MA ECHO TRANSESOPHAG R-T 2D IMG ACQUISJ I&R ONLY Routine 02/02/2025 1:57 PM EDT Valvular heart disease documented in this encounter Results * CV ECHO, JUAN JOSE INTRAOPERATIVE (02/02/2025 1:57 PM EDT) LEFT VENTRICULAR EJECTION FRACTION 55 % [facility] 02/02/2025 10:3 0 AM EDT us Khushi Frost MD ECHOCARDIOLOGY Final Res ult [facility] documented in this encounter Advance Directives [...] Discussed due to patient's condition Care Teams Animal Attendants And Trainers Relationship Specialty Start Date End Date Zuleima Garcia MD [address] [facility] [place] [address] PCP - General Internal Medicine 08/28/24 documented as of this encounter
--- OUTSIDE RECORDS SUMMARY | 2025-02-13 00:34 | External Medical Summary ---
Author Name Unknown Address Unknown Organization : Laboratory Report Ordering Provider Test Date Status ELAINA DIEZ 02/03/2025 16:24:41 Final Observation Date Value Abnormality Reference (Units ) Status Glucose Point of Care 02/03/2025 16:24:41 147 Above high normal 70-120 (mg/dL) Final Performing Location
--- OUTSIDE RECORDS SUMMARY | 2025-02-13 00:34 | External Medical Summary ---
Author Name Unknown Address Unknown Organization K01:[place] [place] [facility] [address] [facility] [address] [facility] [address] Laboratory Report Ordering Provider Test Date Status SALVADOR DAVID 02/04/2025 14:43:37 Final Observation Date Value Abnormality Reference (Units ) Status BUN 02/04/2025 14:43:37 44 Above high normal 6-20 (mg/dL) Final Creatinine 02/04/2025 14:43:37 3.0 Above high normal 0.5-1.0 (mg/dL) Final Glomerular filtration rate/1.73 sq M.predicted [Volume Rate/Area] in Serum, Plasma or Blood by Creatinine-based formula (CKD-EPI) 02/04/2025 14:43:37 16 Below low normal >=60 (mL/min) Final eGFR is calculated based on the CKD-EPI 2020 equation. Sodium 02/04/2025 14:43:37 140 135-146 (m mol/L) Final Potassium 02/04/2025 14:43:37 3.8 3.5-5.1 (m mol/L) Final Cl 02/04/2025 14:43:37 101 98-107 (mm ol/L) Final CO2 02/04/2025 14:43:37 22 22-32 (mmo l/L) Final Anion gap 02/04/2025 14:43:37 17 Above high normal 7- 15 (mmol/L) Final Glucose 02/04/2025 14:43:37 126 Above high normal 70 -120 (mg/dL) Final Calcium 02/04/2025 14:43:37 8.7 8.4-10.2 ( mg/dL) Final Performing Location [facility] [place] [facility] [address] [facility] [address]
--- OUTSIDE RECORDS SUMMARY | 2025-02-13 00:34 | External Medical Summary ---
Author Name Unknown Address Unknown Organization K01:[facility] [place] [facility] [place] [address] Laboratory Report Ordering Provider Test Date Status KATRINELBERT 02/04/2025 03:10:59 Final Warfarin Therapy
INR: 2 .0-3.0 conventional anticoagulation
INR: 2.5- 3.5 high intensity anticoagulation Observation Date Value Abnormality Reference (Units ) Status PT 02/04/2025 03:10:59 18.3 Above high normal 11 .6-15.2 (seconds) Final INR 02/04/2025 03:10:59 1.5 Above high normal 0. 8-1.2 Final Performing Location [facility] [place] [address] [place] [address]
--- OUTSIDE RECORDS SUMMARY | 2025-02-13 00:34 | External Medical Summary ---
Author Name Unknown Address Unknown Organization K01:[place] [facility] [place] [address] [place] [address] Laboratory Report Ordering Provider Test Date Status SUYAPA OSPINA 02/05/2025 04:00:16 Final Observation Date Value Abnormality Reference (Units ) Status Albumin 02/05/2025 04:00:16 3.3 Below low normal 3.8-5.0 (g/dL) Final AST (Aspartate aminotransferase) 02/05/2025 04:00:16 48 Above high normal 10-35 (U/L) Final Alk Phos 02/05/2025 04:00:16 57 35-130 (U/L) Final ALT (Alanine aminotransferase) 02/05/2025 04:00:16 5 Below low normal 10-35 (U/L) Final Bilirubin, Total 02/05/2025 04:00:16 0.9 <=1.2 (mg/dL) Final Bilirubin, Direct 02/05/2025 04:00:16 0.5 Above high normal 0.0-0.3 (mg/dL) Final Protein 02/05/2025 04:00:16 5.7 Below low normal 6.0-8.3 (g/dL) Final Performing Location LAB[facility]ORY [facility] [place] [address] [place] [address]
--- OUTSIDE RECORDS SUMMARY | 2025-02-13 00:34 | External Medical Summary ---
Author Name Unknown Address Unknown Organization K01:[facility]ATORY [facility] [place] - [address] [place] [address] Laboratory Report Ordering Provider Test Date Status KATRINELBERT 02/05/2025 04:00:16 Final Warfarin Therapy
INR: 2 .0-3.0 conventional anticoagulation
INR: 2.5- 3.5 high intensity anticoagulation Observation Date Value Abnormality Reference (Units ) Status PT 02/05/2025 04:00:16 15.4 Above high normal 11 .6-15.2 (seconds) Final INR 02/05/2025 04:00:16 1.2 0.8-1.2 Final Performing Location LABORATORY [facility] - [address] [place] [address]
--- OUTSIDE RECORDS SUMMARY | 2025-02-13 00:34 | External Medical Summary ---
Author Name Unknown Address Unknown Organization K01:[place] [facility] [place] [address] [place] [address] Laboratory Report Ordering Provider Test Date Status KATRINELBERT 02/04/2025 03:10:59 Final Stop Collection after Casey kirkpatrick is removed Observation Date Value Abnormality Reference (Units ) Status Oxygen saturation in Venous blood 02/04/2025 03:10:59 61.7 40.0-85.0 (%) Final Performing Location [facility] [place] [address] [place] [address]
--- OUTSIDE RECORDS SUMMARY | 2025-02-13 00:34 | External Medical Summary ---
Author Name Unknown Address Unknown Organization : Laboratory Report Ordering Provider Test Date Status ELAINA DIEZ 02/04/2025 08:04:37 Final Observation Date Value Abnormality Reference (Units ) Status Glucose Point of Care 02/04/2025 08:04:37 126 Above high normal 70-120 (mg/dL) Final Performing Location
--- OUTSIDE RECORDS SUMMARY | 2025-02-13 00:35 | External Medical Summary ---
Author Name Unknown Address Unknown Organization K01:[place] [place] [facility] [address] [facility] [address] [place] [address] Laboratory Report Ordering Provider Test Date Status ELBERT WILKES 02/03/2025 03:29:03 Final Observation Date Value Abnormality Reference (Units ) Status WBC, Total 02/03/2025 03:29:03 7.81 4.00-10.80 (K/uL) Final RBC 02/03/2025 03:29:03 2.03 3.85-5.15 (M/uL) Final Hemoglobin 02/03/2025 03:29:03 6.3 Below low normal 12.0-15.3 (g/dL) Final HCT 02/03/2025 03:29:03 18.5 Below low normal 36.0-45.2 (%) Final MCV 02/03/2025 03:29:03 91.1 81.5-97.5 (fL) Final MCH 02/03/2025 03:29:03 31.0 27.0-34.0 (pg) Final MCHC 02/03/2025 03:29:03 34.1 32.0-36.0 (g/dL) Final RDW 02/03/2025 03:29:03 15.9 11.5-15.5 (%) Final Platelets 02/03/2025 03:29:03 31 Below low normal 140-400 (K/uL) Final MPV 02/03/2025 03:29:03 13.0 6.6-11.1 (fL) Final Nucleated erythrocytes/100 leukocytes [Ratio] in Blood by Automated count 02/03/2025 03:29:03 10 Above high normal <=0 (/100 WBCs) Final Performing Location [place] [place] [address] [place] [address]
--- OUTSIDE RECORDS SUMMARY | 2025-02-13 00:35 | External Medical Summary ---
Author Name Unknown Address Unknown Organization : Laboratory Report Ordering Provider Test Date Status ELAINA DIEZ 02/03/2025 08:27:09 Final Observation Date Value Abnormality Reference (Units ) Status Glucose Point of Care 02/03/2025 08:27:09 118 70-120 (mg/dL) Final Performing Location
--- OUTSIDE RECORDS SUMMARY | 2025-02-13 00:35 | External Medical Summary ---
Author Name Unknown Address Unknown Organization K01:[place] [facility] [place] [address] [facility] [address] [place] [address] Laboratory Report Ordering Provider Test Date Status ELBERT WILKES 02/02/2025 22:20:31 Final 6 hours after surgery and af ter NOW BMP draw. Observation Date Value Abnormality Reference (Units ) Status BUN 02/02/2025 22:20:31 31 Above high normal 6-20 (mg/dL) Final Creatinine 02/02/2025 22:20:31 2.0 Above high normal 0.5-1.0 (mg/dL) Final Glomerular filtration rate/1.73 sq M.predicted [Volume Rate/Area] in Serum, Plasma or Blood by Creatinine-based formula (CKD-EPI) 02/02/2025 22:20:31 27 Below low normal >=60 (mL/min) Final eGFR is calculated based on the CKD-EPI 2020 equation. Sodium 02/02/2025 22:20:31 147 Above high normal 13 5-146 (mmol/L) Final Potassium 02/02/2025 22:20:31 3.6 3.5-5.1 (m mol/L) Final Cl 02/02/2025 22:20:31 108 Above high normal 98 -107 (mmol/L) Final CO2 02/02/2025 22:20:31 21 Below low normal 22- 32 (mmol/L) Final Anion gap 02/02/2025 22:20:31 18 Above high normal 7- 15 (mmol/L) Final Glucose 02/02/2025 22:20:31 124 Above high normal 70 -120 (mg/dL) Final Calcium 02/02/2025 22:20:31 9.7 8.4-10.2 ( mg/dL) Final Performing Location LABORATORY C - [address] [place] [address]
--- OUTSIDE RECORDS SUMMARY | 2025-02-13 00:35 | External Medical Summary ---
Author Name Unknown Address Unknown Organization K01:[facility] [place] [address] [facility] [address] [place] [address] Laboratory Report Ordering Provider Test Date Status ELBERT WILKES 02/02/2025 20:56:11 Final Observation Date Value Abnormality Reference (Units ) Status Body temperature 02/02/2025 20:56:11 37.0 (C) Final pH of Arterial blood 02/02/2025 20:56:11 7.360 7.350-7.450 (units) Final Carbon dioxide [Partial pressure] in Arterial blood 02/02/2025 20:56:11 39.1 35.0-45.0 (mmHg) Final Oxygen [Partial pressure] in Arterial blood 02/02/2025 20:56:11 179.0 Above high normal 75.0-100.0 (mmHg) Final Base excess, Arterial 02/02/2025 20:56:11 -3.0 Below low normal -2.0-2.0 (mmol/L) Final Hemoglobin [Mass/volume] in Blood by Oximetry 02/02/2025 20:56:11 8.2 Below low normal 12.0-15.3 (g/dL) Final Oxyhemoglobin, Arterial (FO2HB) 02/02/2025 20:56:11 95.8 94.0-99.0 (% total Hgb) Final Carboxyhemoglobin 02/02/2025 20:56:11 2.0 Above high normal <=1.5 (% total Hgb) Final Smokers: 0-9.0 % Methemoglobin 02/02/2025 20:56:11 1.6 Above high normal <=1.5 (% total Hgb) Final Deoxyhemoglobin/Hemog lobin.total in Arterial blood 02/02/2025 20:56:11 0.6 0.0-5.0 (% total Hgb) Final Oxygen content in Arterial blood 02/02/2025 20:56:11 11.4 Below low normal 15.0-24.0 (%vol) Final Potassium, Whole Blood 02/02/2025 20:56:11 3.5 3.5-5.1 (mmol/L) Final Sodium, Whole Blood 02/02/2025 20:56:11 144 135-146 (mmol/L) Final Chloride, Whole Blood 02/02/2025 20:56:11 106 98-107 (mmol/L) Final Calcium.ionized [Moles/volume] in Blood by Ion-selective membrane electrode (ISE) 02/02/2025 20:56:11 1.09 Below low normal 1.13-1.32 (mmol/L) Final Anion gap, Whole Blood 02/02/2025 20:56:11 16.8 Above high normal 7.0-15.0 (mmol/L) Final Glucose, whole blood 02/02/2025 20:56:11 166 Above high normal 70-120 (mg/dL) Final Oxygen/Total gas setting [Volume Fraction] Ventilator 02/02/2025 20:56:11 Not Provided (%) Final O2 FLOW, ARTERIAL - [facility] 02/02/2025 20:56:11 Not Provided (L/min) Final Bicarbonate, Venous, POC (i-STAT) 02/02/2025 20:56:11 21.6 Below low normal 23.0-31.0 (mmol/L) Final Performing Location [facility] [facility] [place] [address] [facility] [address]
--- OUTSIDE RECORDS SUMMARY | 2025-02-13 00:35 | External Medical Summary ---
Author Name Unknown Address Unknown Organization K01:[place] [facility] [place] [address] [facility] [address] Laboratory Report Ordering Provider Test Date Status SUYAPA OSPINA 02/03/2025 08:31:39 Final Observation Date Value Abnormality Reference (Units) Status PARAPROTEIN NORMAL/ABNORMAL 5 08:31:39 Abnormal Abnormal Normal Final Protein 5 08:31:39 5.3 Below low normal 6.0-8.3 (g/dL) Final Albumin/Protein.tota l [Pure mass fraction] in Serum or Plasma by Electrophoresis 5 08:31:39 3.31 3.30-4.40 (g/dL) Final Alpha 1 globulin/Protein.tot al [Pure mass fraction] in Serum or Plasma by Electrophoresis 5 08:31:39 0.20 0.10-0.30 (g/dL) Final Alpha 2 globulin/Protein.tot al [Pure mass fraction] in Serum or Plasma by Electrophoresis 5 08:31:39 0.35 Below low normal 0.60-1.00 (g/dL) Final Beta globulin/Protein.tot al [Pure mass fraction] in Serum or Plasma by Electrophoresis 5 08:31:39 0.78 Below low normal 0.80-1.30 (g/dL) Final Gamma globulin/Protein.tot al [Pure mass fraction] in Serum or Plasma by Electrophoresis 5 08:31:39 0.66 Below low normal 0.70-1.70 (g/dL) Final Protein Fractions [Interpretation] in Serum or Plasma by Electrophoresis Narrative 5 08:31:39 Abnormal. 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 Unable to reliably identify or accurately quantify the paraprotein due to its migration in the beta region. Please order serum free light chains, beta-2 Final Protein Fractions [Interpretation] in Serum or Plasma by Electrophoresis Narrative 5 08:31:39 microglobulin, and the quantitative immunoglobulins for disease monitoring. Decreased gamma fraction. Final Performing Location [facility] [place] [address] [facility] [address]
--- OUTSIDE RECORDS SUMMARY | 2025-02-13 00:35 | External Medical Summary ---
Author Name Unknown Address Unknown Organization : Laboratory Report Ordering Provider Test Date Status ELAINA DIEZ 02/02/2025 19:00:34 Final Observation Date Value Abnormality Reference (Units ) Status Glucose Point of Care 02/02/2025 19:00:34 219 Above high normal 70-120 (mg/dL) Final Performing Location
--- OUTSIDE RECORDS SUMMARY | 2025-02-13 00:35 | External Medical Summary ---
Author Name Unknown Address Unknown Organization : Laboratory Report Ordering Provider Test Date Status ELAINA DIEZ 02/02/2025 20:03:28 Final Observation Date Value Abnormality Reference (Units ) Status Glucose Point of Care 02/02/2025 20:03:28 189 Above high normal 70-120 (mg/dL) Final Performing Location
--- OUTSIDE RECORDS SUMMARY | 2025-02-13 00:35 | External Medical Summary ---
Author Name Unknown Address Unknown Organization : Laboratory Report Ordering Provider Test Date Status ELAINA DIEZ 02/02/2025 22:23:28 Final Observation Date Value Abnormality Reference (Units ) Status Glucose Point of Care 02/02/2025 22:23:28 123 Above high normal 70-120 (mg/dL) Final Performing Location
--- OUTSIDE RECORDS SUMMARY | 2025-02-13 00:35 | External Medical Summary ---
Author Name Unknown Address Unknown Organization : Laboratory Report Ordering Provider Test Date Status ELAINA DIEZ 02/03/2025 10:19:14 Final Observation Date Value Abnormality Reference (Units ) Status Glucose Point of Care 02/03/2025 10:19:14 129 Above high normal 70-120 (mg/dL) Final Performing Location
--- OUTSIDE RECORDS SUMMARY | 2025-02-13 00:35 | External Medical Summary ---
Author Name Unknown Address Unknown Organization K01:[facility] [place] [facility] [address] [facility] [address] [place] [address] Laboratory Report Ordering Provider Test Date Status ELBERT WILKES 02/03/2025 03:29:03 Final Observation Date Value Abnormality Reference (Units ) Status BUN 02/03/2025 03:29:03 33 Above high normal 6-20 (mg/dL) Final Creatinine 02/03/2025 03:29:03 2.1 Above high normal 0.5-1.0 (mg/dL) Final Glomerular filtration rate/1.73 sq M.predicted [Volume Rate/Area] in Serum, Plasma or Blood by Creatinine-based formula (CKD-EPI) 02/03/2025 03:29:03 25 Below low normal >=60 (mL/min) Final eGFR is calculated based on the CKD-EPI 2020 equation. Sodium 02/03/2025 03:29:03 147 Above high normal 13 5-146 (mmol/L) Final Potassium 02/03/2025 03:29:03 4.9 3.5-5.1 (m mol/L) Final Cl 02/03/2025 03:29:03 108 Above high normal 98 -107 (mmol/L) Final CO2 02/03/2025 03:29:03 21 Below low normal 22- 32 (mmol/L) Final Anion gap 02/03/2025 03:29:03 18 Above high normal 7- 15 (mmol/L) Final Glucose 02/03/2025 03:29:03 131 Above high normal 70 -120 (mg/dL) Final Calcium 02/03/2025 03:29:03 9.1 8.4-10.2 ( mg/dL) Final Performing Location LAB[facility]ORY [facility] [place] - [address] [place] [address]
--- OUTSIDE RECORDS SUMMARY | 2025-02-13 00:35 | External Medical Summary ---
Author Name Unknown Address Unknown Organization : Laboratory Report Ordering Provider Test Date Status ELAINA DIEZ 02/02/2025 20:45:22 Final Observation Date Value Abnormality Reference (Units ) Status Glucose Point of Care 02/02/2025 20:45:22 156 Above high normal 70-120 (mg/dL) Final Performing Location
--- OUTSIDE RECORDS SUMMARY | 2025-02-13 00:35 | External Medical Summary ---
Author Name Unknown Address Unknown Organization : Laboratory Report Ordering Provider Test Date Status ELAINA DIEZ 02/03/2025 02:17:25 Final Observation Date Value Abnormality Reference (Units ) Status Glucose Point of Care 02/03/2025 02:17:25 115 70-120 (mg/dL) Final Performing Location
--- OUTSIDE RECORDS SUMMARY | 2025-02-13 00:35 | External Medical Summary ---
Author Name Unknown Address Unknown Organization K01:[facility] [place] [address] [facility] [address] Laboratory Report Ordering Provider Test Date Status ELBERT WILKES 02/02/2025 20:02:40 Final Observation Date Value Abnormality Reference (Units ) Status Body temperature 02/02/2025 20:02:40 37.0 (C) Final pH of Arterial blood 02/02/2025 20:02:40 7.360 7.350-7.450 (units) Final Carbon dioxide [Partial pressure] in Arterial blood 02/02/2025 20:02:40 41.1 35.0-45.0 (mmHg) Final Oxygen [Partial pressure] in Arterial blood 02/02/2025 20:02:40 183.0 Above high normal 75.0-100.0 (mmHg) Final Base excess, Arterial 02/02/2025 20:02:40 -2.1 Below low normal -2.0-2.0 (mmol/L) Final Hemoglobin [Mass/volume] in Blood by Oximetry 02/02/2025 20:02:40 8.9 Below low normal 12.0-15.3 (g/dL) Final Oxyhemoglobin, Arterial (FO2HB) 02/02/2025 20:02:40 96.0 94.0-99.0 (% total Hgb) Final Carboxyhemoglobin 02/02/2025 20:02:40 2.0 Above high normal <=1.5 (% total Hgb) Final Smokers: 0-9.0 % Methemoglobin 02/02/2025 20:02:40 1.6 Above high normal <=1.5 (% total Hgb) Final Deoxyhemoglobin/Hemog lobin.total in Arterial blood 02/02/2025 20:02:40 0.4 0.0-5.0 (% total Hgb) Final Oxygen content in Arterial blood 02/02/2025 20:02:40 12.5 Below low normal 15.0-24.0 (%vol) Final Oxygen/Total gas setting [Volume Fraction] Ventilator 02/02/2025 20:02:40 Not Provided (%) Final O2 FLOW, ARTERIAL - [facility] 02/02/2025 20:02:40 Not Provided (L/min) Final Bicarbonate, Venous, POC (i-STAT) 02/02/2025 20:02:40 22.6 Below low normal 23.0-31.0 (mmol/L) Final Performing Location [facility] [place] [address] [facility] [address]
--- OUTSIDE RECORDS SUMMARY | 2025-02-13 00:35 | External Medical Summary ---
Author Name Unknown Address Unknown Organization K01:LABORATORY [facility] - [address] [place] [address] Laboratory Report Ordering Provider Test Date Status ELBERT WILKES 02/03/2025 03:29:03 Final Observation Date Value Abnormality Reference (Units ) Status Magnesium 02/03/2025 03:29:03 2.6 1.5-2.6 (m g/dL) Final Performing Location LABORATORY [facility] - [address] [place] [address]
--- OUTSIDE RECORDS SUMMARY | 2025-02-13 00:35 | External Medical Summary ---
Author Name Unknown Address Unknown Organization : Laboratory Report Ordering Provider Test Date Status ELAINA DIEZ 02/03/2025 03:28:17 Final Observation Date Value Abnormality Reference (Units ) Status Glucose Point of Care 02/03/2025 03:28:17 135 Above high normal 70-120 (mg/dL) Final Performing Location
--- OUTSIDE RECORDS SUMMARY | 2025-02-13 00:35 | External Medical Summary ---
Author Name Unknown Address Unknown Organization K01:[place] [facility] [place] [address] [facility] [address] Laboratory Report Ordering Provider Test Date Status ELBERT WILKES 02/03/2025 07:17:07 Final Observation Date Value Abnormality Reference (Units ) Status Body temperature 02/03/2025 07:17:07 37.0 (C) Final pH of Arterial blood 02/03/2025 07:17:07 7.372 7.350-7.450 (units) Final Carbon dioxide [Partial pressure] in Arterial blood 02/03/2025 07:17:07 40.3 35.0-45.0 (mmHg) Final Oxygen [Partial pressure] in Arterial blood 02/03/2025 07:17:07 161.0 Above high normal 75.0-100.0 (mmHg) Final Base excess, Arterial 02/03/2025 07:17:07 -1.6 -2.0-2.0 (mmol/L) Final Hemoglobin [Mass/volume] in Blood by Oximetry 02/03/2025 07:17:07 9.1 Below low normal 12.0-15.3 (g/dL) Final Oxyhemoglobin, Arterial (FO2HB) 02/03/2025 07:17:07 96.3 94.0-99.0 (% total Hgb) Final Carboxyhemoglobin 02/03/2025 07:17:07 1.7 Above high normal <=1.5 (% total Hgb) Final Smokers: 0-9.0 % Methemoglobin 02/03/2025 07:17:07 1.6 Above high normal <=1.5 (% total Hgb) Final Deoxyhemoglobin/Hemog lobin.total in Arterial blood 02/03/2025 07:17:07 0.4 0.0-5.0 (% total Hgb) Final Oxygen content in Arterial blood 02/03/2025 07:17:07 12.6 Below low normal 15.0-24.0 (%vol) Final Oxygen/Total gas setting [Volume Fraction] Ventilator 02/03/2025 07:17:07 Not Provided (%) Final O2 FLOW, ARTERIAL - [facility] 02/03/2025 07:17:07 Not Provided (L/min) Final Bicarbonate, Venous, POC (i-STAT) 02/03/2025 07:17:07 22.9 Below low normal 23.0-31.0 (mmol/L) Final Performing Location [place] [facility] [place] [address] [facility] [address]
--- OUTSIDE RECORDS SUMMARY | 2025-02-13 00:35 | External Medical Summary ---
Author Name Unknown Address Unknown Organization : Laboratory Report Ordering Provider Test Date Status ELAINA DIEZ 02/03/2025 07:16:20 Final Observation Date Value Abnormality Reference (Units ) Status Glucose Point of Care 02/03/2025 07:16:20 113 70-120 (mg/dL) Final Performing Location
--- OUTSIDE RECORDS SUMMARY | 2025-02-13 00:35 | External Medical Summary ---
Author Name Unknown Address Unknown Organization : Laboratory Report Ordering Provider Test Date Status ELAINA DIEZ 02/03/2025 05:37:06 Final Observation Date Value Abnormality Reference (Units ) Status Glucose Point of Care 02/03/2025 05:37:06 81 70-120 (mg/dL) Final Performing Location
--- OUTSIDE RECORDS SUMMARY | 2025-02-13 00:35 | External Medical Summary ---
Author Name Unknown Address Unknown Organization : Laboratory Report Ordering Provider Test Date Status ELAINA DIEZ 02/02/2025 23:54:09 Final Observation Date Value Abnormality Reference (Units ) Status Glucose Point of Care 02/02/2025 23:54:09 90 70-120 (mg/dL) Final Performing Location
--- OUTSIDE RECORDS SUMMARY | 2025-02-13 00:35 | External Medical Summary ---
Author Name Unknown Address Unknown Organization : Laboratory Report Ordering Provider Test Date Status ELBERT WILKES 02/03/2025 03:29:03 Final Observation Date Value Abnormality Reference (Units ) Status Performing Location
--- OUTSIDE RECORDS SUMMARY | 2025-02-13 00:35 | External Medical Summary ---
Author Name Unknown Address Unknown Organization K01:LAB[facility]ATORY [facility] [place] - [address] [facility] [address] Laboratory Report Ordering Provider Test Date Status SUYAPA OSPINA 02/03/2025 08:31:39 Final Observation Date Value Abnormality Reference (Units ) Status [place] light chains, Free, Serum 02/03/2025 08:31:39 615.00 Above high normal 3.30-19.40 (mg/L) Final Decreased kidney function ca n cause an increase in serum [place] Free Light Chains. For individuals with decreased kidney function, the following reference intervals apply:

eGFR 45-59: 7.8-83.6 mg/L
eGFR 30-44: 8.8-103.3 mg/L
eGFR <30: 11.7-265.1 mg/L Lambda light chains, free, Serum 02/03/2025 08:31:39 14.14 5.71-26.30 (mg/L) Final Decreased kidney function ca n cause an increase in serum Lambda Free Light Chains. For individuals with decreased kidney function, the following reference intervals apply:

eGFR 45-59: 7.3-65.1 mg/L
eGFR 30-44: 8.2-73.2 mg/L
eGFR <30: 12.6-150.9 mg/L KAPPA LAMBDA FLC RATIO 02/03/2025 08:31:39 43.49 Above h igh normal 0.26-1.65 Final Decreased kidney function ca n cause an increase in serum Free Light Chain Ratio. For individuals with decreased kidney function, the following reference intervals apply:
eGFR 45-59: 0.46-2.62
eGFR 30-44: 0.48-3.38
eGFR <30: 0.54-3.30 Performing Location LABORATORY [facility] [place] - [address] [facility] [address]
--- OUTSIDE RECORDS SUMMARY | 2025-02-13 00:35 | External Medical Summary ---
Author Name Unknown Address Unknown Organization K01:[place]ORY [facility] [place] [address] [facility] [address] Laboratory Report Ordering Provider Test Date Status ELBERT WILKES 02/03/2025 03:28:25 Final Observation Date Value Abnormality Reference (Units ) Status Body temperature 02/03/2025 03:28:25 37.0 (C) Final pH of Arterial blood 02/03/2025 03:28:25 7.367 7.350-7.450 (units) Final Carbon dioxide [Partial pressure] in Arterial blood 02/03/2025 03:28:25 42.5 35.0-45.0 (mmHg) Final Oxygen [Partial pressure] in Arterial blood 02/03/2025 03:28:25 145.0 Above high normal 75.0-100.0 (mmHg) Final Base excess, Arterial 02/03/2025 03:28:25 -0.9 -2.0-2.0 (mmol/L) Final Hemoglobin [Mass/volume] in Blood by Oximetry 02/03/2025 03:28:25 6.8 Below low normal 12.0-15.3 (g/dL) Final Oxyhemoglobin, Arterial (FO2HB) 02/03/2025 03:28:25 95.9 94.0-99.0 (% total Hgb) Final Carboxyhemoglobin 02/03/2025 03:28:25 1.9 Above high normal <=1.5 (% total Hgb) Final Smokers: 0-9.0 % Methemoglobin 02/03/2025 03:28:25 1.7 Above high normal <=1.5 (% total Hgb) Final Deoxyhemoglobin/Hemog lobin.total in Arterial blood 02/03/2025 03:28:25 0.5 0.0-5.0 (% total Hgb) Final Oxygen content in Arterial blood 02/03/2025 03:28:25 9.5 Below low normal 15.0-24.0 (%vol) Final Oxygen/Total gas setting [Volume Fraction] Ventilator 02/03/2025 03:28:25 Not Provided (%) Final O2 FLOW, ARTERIAL - [facility] 02/03/2025 03:28:25 Not Provided (L/min) Final Bicarbonate, Venous, POC (i-STAT) 02/03/2025 03:28:25 23.8 23.0-31.0 (mmol/L) Final Performing Location LAB[facility]ORY [facility] [place] [address] [facility] [address]
--- OUTSIDE RECORDS SUMMARY | 2025-02-13 00:35 | External Medical Summary ---
Author Name Unknown Address Unknown Organization K01:LAB[place]ATORY [facility] [place] - [address] [place] [address] Laboratory Report Ordering Provider Test Date Status JONATHAN MALAGON 02/03/2025 08:31:39 Final Observation Date Value Abnormality Reference (Units ) Status WBC, Total 02/03/2025 08:31:39 6.79 4.00-10.80 (K/uL) Final RBC 02/03/2025 08:31:39 2.75 3.85-5.15 (M/uL) Final Hemoglobin 02/03/2025 08:31:39 8.5 Below low normal 12.0-15.3 (g/dL) Final HCT 02/03/2025 08:31:39 24.8 Below low normal 36.0-45.2 (%) Final MCV 02/03/2025 08:31:39 90.2 81.5-97.5 (fL) Final MCH 02/03/2025 08:31:39 30.9 27.0-34.0 (pg) Final MCHC 02/03/2025 08:31:39 34.3 32.0-36.0 (g/dL) Final RDW 02/03/2025 08:31:39 14.7 11.5-15.5 (%) Final Platelets 02/03/2025 08:31:39 28 Below low normal 140-400 (K/uL) Final MPV 02/03/2025 08:31:39 12.8 6.6-11.1 (fL) Final Nucleated erythrocytes/100 leukocytes [Ratio] in Blood by Automated count 02/03/2025 08:31:39 4 Above high normal <=0 (/100 WBCs) Final Performing Location LABORATORY [facility] [place] - [address] [place] [address]
--- OUTSIDE RECORDS SUMMARY | 2025-02-13 00:35 | External Medical Summary ---
Author Name Unknown Address Unknown Organization K01:[place] [facility] [place] [address] [place] [address] Laboratory Report Ordering Provider Test Date Status KATRINELBERT 02/03/2025 03:29:03 Final Stop Collection after Casey kirkpatrick is removed Observation Date Value Abnormality Reference (Units ) Status Oxygen saturation in Venous blood 02/03/2025 03:29:03 70.7 40.0-85.0 (%) Final Performing Location [facility] [facility] [place] [address] [place] [address]
--- OUTSIDE RECORDS SUMMARY | 2025-02-13 00:35 | External Medical Summary ---
Author Name Unknown Address Unknown Organization K01:LAB[facility]ATORY [facility] [place] - [address] [facility] [address] Laboratory Report Ordering Provider Test Date Status ELBERT WILKES 02/02/2025 22:20:48 Final Observation Date Value Abnormality Reference (Units ) Status Body temperature 02/02/2025 22:20:48 37.0 (C) Final pH of Arterial blood 02/02/2025 22:20:48 7.341 Below low normal 7.350-7.450 (units) Final Carbon dioxide [Partial pressure] in Arterial blood 02/02/2025 22:20:48 41.0 35.0-45.0 (mmHg) Final Oxygen [Partial pressure] in Arterial blood 02/02/2025 22:20:48 190.0 Above high normal 75.0-100.0 (mmHg) Final Base excess, Arterial 02/02/2025 22:20:48 -3.3 Below low normal -2.0-2.0 (mmol/L) Final Hemoglobin [Mass/volume] in Blood by Oximetry 02/02/2025 22:20:48 7.5 Below low normal 12.0-15.3 (g/dL) Final Oxyhemoglobin, Arterial (FO2HB) 02/02/2025 22:20:48 96.3 94.0-99.0 (% total Hgb) Final Carboxyhemoglobin 02/02/2025 22:20:48 2.2 Above high normal <=1.5 (% total Hgb) Final Smokers: 0-9.0 % Methemoglobin 02/02/2025 22:20:48 1.6 Above h igh normal <=1.5 (% total Hgb) Final Deoxyhemoglobin/Hemoglob in.total in Arterial blood 02/02/2025 22:20:48 0.0 0.0-5.0 (% total Hgb) Final Oxygen content in Arterial blood 02/02/2025 22:20:48 Final Not calculated.
Oxygen/Total gas setting [Volume Fraction] Ventilator 02/02/2025 22:20:48 Not Provided (%) Final O2 FLOW, ARTERIAL - [facility] 02/02/2025 22:20:48 Not Provided (L/min) Final Bicarbonate, Venous, POC (i-STAT) 02/02/2025 22:20:48 21.6 Below low normal 23.0-31.0 (mmol/L) Final Performing Location LABORATORY [facility] [place] - [facility] [address] [facility] [address]
--- OUTSIDE RECORDS SUMMARY | 2025-02-13 00:35 | External Medical Summary ---
Author Name Unknown Address Unknown Organization K01:LABORATORY [facility] - [address] [place] [address] Laboratory Report Ordering Provider Test Date Status ELBERT WILKES 02/03/2025 03:29:03 Final Observation Date Value Abnormality Reference (Units ) Status SYNC LEUKOCYTES IN BLOOD BY AUTOMATED COUNT 02/03/2025 03:29:03 7.81 4.00-10.80 (K/uL) Final Neutrophils/100 leukocytes in Blood by Manual count 02/03/2025 03:29:03 83.0 Above high normal 40.0-75.0 (%) Final Lymphocytes/100 leukocytes in Blood by Manual count 02/03/2025 03:29:03 4.0 Below low normal 18.0-42.0 (%) Final Monocytes/100 leukocytes in Blood by Manual count 02/03/2025 03:29:03 12.0 Above high normal 1.0-11.0 (%) Final Metamyelocytes/100 leukocytes in Blood by Manual count 02/03/2025 03:29:03 1.0 Above high normal <=0.0 (%) Final Neutrophils [#/volume] in Blood by Manual count 02/03/2025 03:29:03 6.48 1.80-7.70 (K/uL) Final Lymphocytes [#/volume] in Blood by Manual count 02/03/2025 03:29:03 0.31 Below low normal 1.00-4.80 (K/uL) Final Monocytes [#/volume] in Blood by Manual count 02/03/2025 03:29:03 0.94 0.00-1.10 (K/uL) Final Metamyelocytes [#/volume] in Blood by Manual count 02/03/2025 03:29:03 0.08 Above high normal <=0.00 (K/uL) Final Performing Location LABORATORY [facility] - [address] [place] [address]
--- OUTSIDE RECORDS SUMMARY | 2025-02-13 00:35 | External Medical Summary ---
Author Name Unknown Address Unknown Organization K01:LAB[facility]ATORY [facility] [place] - [address] [facility] [address] Laboratory Report Ordering Provider Test Date Status ELBERT WILKES 02/02/2025 18:50:53 Final Observation Date Value Abnormality Reference (Units ) Status Body temperature 02/02/2025 18:50:53 37.0 (C) Final pH of Arterial blood 02/02/2025 18:50:53 7.314 Below low normal 7.350-7.450 (units) Final Carbon dioxide [Partial pressure] in Arterial blood 02/02/2025 18:50:53 40.8 35.0-45.0 (mmHg) Final Oxygen [Partial pressure] in Arterial blood 02/02/2025 18:50:53 182.0 Above high normal 75.0-100.0 (mmHg) Final Base excess, Arterial 02/02/2025 18:50:53 -5.1 Below low normal -2.0-2.0 (mmol/L) Final Hemoglobin [Mass/volume] in Blood by Oximetry 02/02/2025 18:50:53 9.2 Below low normal 12.0-15.3 (g/dL) Final Oxyhemoglobin, Arterial (FO2HB) 02/02/2025 18:50:53 96.0 94.0-99.0 (% total Hgb) Final Carboxyhemoglobin 02/02/2025 18:50:53 2.5 Above high normal <=1.5 (% total Hgb) Final Smokers: 0-9.0 % Methemoglobin 02/02/2025 18:50:53 1.2 <=1.5 (% total Hgb) Final Deoxyhemoglobin/Hemog lobin.total in Arterial blood 02/02/2025 18:50:53 0.3 0.0-5.0 (% total Hgb) Final Oxygen content in Arterial blood 02/02/2025 18:50:53 12.8 Below low normal 15.0-24.0 (%vol) Final Potassium, Whole Blood 02/02/2025 18:50:53 3.3 Below low normal 3.5-5.1 (mmol/L) Final Sodium, Whole Blood 02/02/2025 18:50:53 143 135-146 (mmol/L) Final Chloride, Whole Blood 02/02/2025 18:50:53 104 98-107 (mmol/L) Final Calcium.ionized [Moles/volume] in Blood by Ion-selective membrane electrode (ISE) 02/02/2025 18:50:53 1.11 Below low normal 1.13-1.32 (mmol/L) Final Anion gap, Whole Blood 02/02/2025 18:50:53 19.4 Above high normal 7.0-15.0 (mmol/L) Final Glucose, whole blood 02/02/2025 18:50:53 226 Above high normal 70-120 (mg/dL) Final Oxygen/Total gas setting [Volume Fraction] Ventilator 02/02/2025 18:50:53 50 (%) Final O2 FLOW, ARTERIAL - [facility] 02/02/2025 18:50:53 Not Provided (L/min) Final Bicarbonate, Venous, POC (i-STAT) 02/02/2025 18:50:53 20.1 Below low normal 23.0-31.0 (mmol/L) Final Performing Location LABORATORY [facility] [place] - [address] [facility] [address]
--- OUTSIDE RECORDS SUMMARY | 2025-02-13 00:35 | External Medical Summary ---
Author Name Unknown Address Unknown Organization K01:LABORATORY [facility] [place] - [facility] [address] [place] [address] Laboratory Report Ordering Provider Test Date Status JONATHAN MALAGON 02/03/2025 08:31:39 Final Observation Date Value Abnormality Reference (Units ) Status Heparin induced platelet IgG Ab in Serum or Plasma by Immunoassay 02/03/2025 08:31:39 0.060 <0.400 (OD) Final Performing Location LABORATORY [facility] [place] - [address] [place] [address]
--- OUTSIDE RECORDS SUMMARY | 2025-02-13 00:35 | External Medical Summary ---
Author Name Unknown Address Unknown Organization : Laboratory Report Ordering Provider Test Date Status ELAINA DIEZ 02/02/2025 23:04:31 Final Observation Date Value Abnormality Reference (Units ) Status Glucose Point of Care 02/02/2025 23:04:31 105 70-120 (mg/dL) Final Performing Location
--- OUTSIDE RECORDS SUMMARY | 2025-02-13 00:35 | External Medical Summary ---
Author Name Unknown Address Unknown Organization K01:LABORATORY [facility] [place] - [address] [place] [address] Laboratory Report Ordering Provider Test Date Status ELBERT WILKES 02/02/2025 22:20:31 Final Observation Date Value Abnormality Reference (Units ) Status Magnesium 02/02/2025 22:20:31 2.7 Above high normal 1. 5-2.6 (mg/dL) Final Performing Location LABORATORY [facility] - [address] [place] [address]
--- OUTSIDE RECORDS SUMMARY | 2025-02-13 00:35 | External Medical Summary ---
Author Name Unknown Address Unknown Organization K01:LABORATORY [facility] [place] - [facility] [address] [place] [address] Laboratory Report Ordering Provider Test Date Status KATRINELBERT 02/03/2025 03:29:03 Final Warfarin Therapy
INR: 2 .0-3.0 conventional anticoagulation
INR: 2.5- 3.5 high intensity anticoagulation Observation Date Value Abnormality Reference (Units ) Status PT 02/03/2025 03:29:03 19.1 Above high normal 11 .6-15.2 (seconds) Final INR 02/03/2025 03:29:03 1.6 Above high normal 0. 8-1.2 Final Performing Location LABORATORY [facility] [place] - [address] [place] [address]
--- OUTSIDE RECORDS SUMMARY | 2025-02-13 00:35 | External Medical Summary ---
Author Name Unknown Address Unknown Organization : Laboratory Report Ordering Provider Test Date Status ELAINA DIEZ 02/03/2025 12:04:16 Final Observation Date Value Abnormality Reference (Units ) Status Glucose Point of Care 02/03/2025 12:04:16 122 Above high normal 70-120 (mg/dL) Final Performing Location
--- OUTSIDE RECORDS SUMMARY | 2025-02-13 00:35 | External Medical Summary ---
Author Name Unknown Address Unknown Organization K01:[place] [facility] [place] [facility] [address] [place] [address] Laboratory Report Ordering Provider Test Date Status ELBERT WILKES 02/02/2025 22:20:31 Final Observation Date Value Abnormality Reference (Units ) Status WBC, Total 02/02/2025 22:20:31 9.30 4.00-10.80 (K/uL) Final RBC 02/02/2025 22:20:31 2.45 3.85-5.15 (M/uL) Final Hemoglobin 02/02/2025 22:20:31 7.4 Below low normal 12.0-15.3 (g/dL) Final HCT 02/02/2025 22:20:31 22.1 Below low normal 36.0-45.2 (%) Final MCV 02/02/2025 22:20:31 90.2 81.5-97.5 (fL) Final MCH 02/02/2025 22:20:31 30.2 27.0-34.0 (pg) Final MCHC 02/02/2025 22:20:31 33.5 32.0-36.0 (g/dL) Final RDW 02/02/2025 22:20:31 15.2 11.5-15.5 (%) Final Platelets 02/02/2025 22:20:31 33 Below low normal 140-400 (K/uL) Final MPV 02/02/2025 22:20:31 13.3 6.6-11.1 (fL) Final Nucleated erythrocytes/100 leukocytes [Ratio] in Blood by Automated count 02/02/2025 22:20:31 5 Above high normal <=0 (/100 WBCs) Final Performing Location [place] [facility] [place] [address] [place] [address]
--- OUTSIDE RECORDS SUMMARY | 2025-02-13 00:35 | External Medical Summary ---
Author Name Unknown Address Unknown Organization : Laboratory Report Ordering Provider Test Date Status ELAINA DIEZ 02/03/2025 00:57:02 Final Observation Date Value Abnormality Reference (Units ) Status Glucose Point of Care 02/03/2025 00:57:02 80 70-120 (mg/dL) Final Performing Location
--- OUTSIDE RECORDS SUMMARY | 2025-02-13 00:36 | External Medical Summary ---
Author Name Unknown Address Unknown Organization K01:LABORATORY [facility] - [address] [place] [address] Laboratory Report Ordering Provider Test Date Status ELBERT WILKES 02/02/2025 16:59:50 Final Observation Date Value Abnormality Reference (Units ) Status Fibrinogen 02/02/2025 16:59:50 247 178-467 ( mg/dL) Final Performing Location LABORATORY [facility] - [address] [place] [address]
--- OUTSIDE RECORDS SUMMARY | 2025-02-13 00:36 | External Medical Summary ---
Author Name Unknown Address Unknown Organization K01:LABORATORY [facility] [place] - [address] [facility] [address] Laboratory Report Ordering Provider Test Date Status ELBERT WILKES 02/02/2025 16:59:50 Final Anticoagulation may affect t esting. Refer to [facility] Test Catalog for a list of effects. Observation Date Value Abnormality Reference (Units ) Status aPTT panel - Platelet poor plasma 02/02/2025 16:59:50 57 Above high normal 21-38 (seconds) Final Performing Location LABORATORY [facility] [place] - [address] [facility] [address]
--- OUTSIDE RECORDS SUMMARY | 2025-02-13 00:36 | External Medical Summary ---
Author Name Unknown Address Unknown Organization K01:[place] [facility] [place] [address] [place] [address] Laboratory Report Ordering Provider Test Date Status KATRINELBERT 02/02/2025 16:59:50 Final Warfarin Therapy
INR: 2 .0-3.0 conventional anticoagulation
INR: 2.5- 3.5 high intensity anticoagulation Observation Date Value Abnormality Reference (Units ) Status PT 02/02/2025 16:59:50 15.6 Above high normal 11 .6-15.2 (seconds) Final INR 02/02/2025 16:59:50 1.2 0.8-1.2 Final Performing Location [place] [facility] [place] [address] [place] [address]
--- OUTSIDE RECORDS SUMMARY | 2025-02-13 00:36 | External Medical Summary ---
Author Name Unknown Address Unknown Organization : Laboratory Report Ordering Provider Test Date Status AWILDA ROBERSON 02/02/2025 16:59:45 Final Observation Date Value Abnormality Reference (Units) Status Blood draw [PhenX] 02/02/2025 16:59:45 Arterial Draw Final pH, POC (i-STAT) 02/02/2025 16:59:45 7.337 Below low normal 7.350-7.450 Final PCO2 POC (i-STAT) 02/02/2025 16:59:45 41.8 35.0-45.0 (mm Hg) Final PO2 POC (i-STAT) 02/02/2025 16:59:45 359 Above high normal 75-100 (mm Hg) Final Base excess standard in Arterial blood by calculation 02/02/2025 16:59:45 -3 Below low normal -2-2 (mmol/L) Final Bicarbonate, Venous, POC (i-STAT) 02/02/2025 16:59:45 22.4 Below low normal 23.0-31.0 (mmol/L) Final O2 Sat, calculated POC (i-STAT) 02/02/2025 16:59:45 100.0 Above high normal 94.0-98.0 (%) Final Glucose, whole blood 02/02/2025 16:59:45 254 Above high normal 70-120 (mg/dL) Final Potassium, Whole Blood 02/02/2025 16:59:45 3.7 3.5-5.1 (mmol/L) Final Sodium, Whole Blood 02/02/2025 16:59:45 141 135-146 (mmol/L) Final Calcium, Ionized, Whole Blood 02/02/2025 16:59:45 1.08 Below low normal 1.13-1.32 (mmol/L) Final Hemoglobin POC (i-STAT) 02/02/2025 16:59:45 10.5 Below low normal 12.0-15.3 (g/dL) Final HCT 02/02/2025 16:59:45 31 Below low normal 36-45 (%) Final Performing Location
--- OUTSIDE RECORDS SUMMARY | 2025-02-13 00:36 | External Medical Summary ---
Author Name Unknown Address Unknown Organization K01:[place]ORY [facility] [place] [address] [place] [address] Laboratory Report Ordering Provider Test Date Status HE[place] 02/02/2025 14:19:07 Final Observation Date Value Abnormality Reference (Units ) Status Antithrombin III 02/02/2025 14:19:07 69 Below low nor mal 80-120 (%) Final Performing Location [place] [facility] [place] [address] [place] [address]
--- OUTSIDE RECORDS SUMMARY | 2025-02-13 00:36 | External Medical Summary ---
Author Name Unknown Address Unknown Organization K01:LABORATORY [facility] [place] - [facility] [address] [facility] [address] Laboratory Report Ordering Provider Test Date Status HELENA MO 02/02/2025 15:58:04 Final Warfarin Therapy
INR: 2 .0-3.0 conventional anticoagulation
INR: 2.5- 3.5 high intensity anticoagulation Observation Date Value Abnormality Reference (Units ) Status PT 02/02/2025 15:58:04 15.9 Above high normal 11 .6-15.2 (seconds) Final INR 02/02/2025 15:58:04 1.3 Above high normal 0. 8-1.2 Final Performing Location LABORATORY [facility] [place] - [address] [place] [address]
--- OUTSIDE RECORDS SUMMARY | 2025-02-13 00:36 | External Medical Summary ---
Author Name Unknown Address Unknown Organization K01:LABORATORY [facility] [place] - [address] [facility] [address] Laboratory Report Ordering Provider Test Date Status [place] MO 02/02/2025 14:19:07 Final Anticoagulation may affect t esting. Refer to [facility] Test Catalog for a list of effects. Observation Date Value Abnormality Reference (Units ) Status aPTT panel - Platelet poor plasma 02/02/2025 14:19:07 62 Above high normal 21-38 (seconds) Final Performing Location LABORATORY [facility] [place] - [address] [facility] [address]
--- OUTSIDE RECORDS SUMMARY | 2025-02-13 00:36 | External Medical Summary ---
Author Name Unknown Address Unknown Organization K01:[place] [facility] [place] [facility] [address] [facility] [address] Laboratory Report Ordering Provider Test Date Status HELENA MO 02/02/2025 15:58:04 Final Observation Date Value Abnormality Reference (Units ) Status WBC, Total 02/02/2025 15:58:04 10.38 4.00-10.80 (K/uL) Final RBC 02/02/2025 15:58:04 2.90 3.85-5.15 (M/uL) Final Hemoglobin 02/02/2025 15:58:04 9.0 Below low normal 12.0-15.3 (g/dL) Final HCT 02/02/2025 15:58:04 27.0 Below low normal 36.0-45.2 (%) Final MCV 02/02/2025 15:58:04 93.1 81.5-97.5 (fL) Final MCH 02/02/2025 15:58:04 31.0 27.0-34.0 (pg) Final MCHC 02/02/2025 15:58:04 33.3 32.0-36.0 (g/dL) Final RDW 02/02/2025 15:58:04 14.3 11.5-15.5 (%) Final Platelets 02/02/2025 15:58:04 48 Below low normal 140-400 (K/uL) Final MPV 02/02/2025 15:58:04 11.7 6.6-11.1 (fL) Final Nucleated erythrocytes/100 leukocytes [Ratio] in Blood by Automated count 02/02/2025 15:58:04 3 Above high normal <=0 (/100 WBCs) Final Performing Location [facility] [facility] [place] [address] [place] [place] [address]
--- OUTSIDE RECORDS SUMMARY | 2025-02-13 00:36 | External Medical Summary ---
Author Name Unknown Address Unknown Organization K01:[place] [facility] [place] [facility] [address] [facility] [address] Laboratory Report Ordering Provider Test Date Status ELBERT WILKES 02/02/2025 16:59:50 Final Observation Date Value Abnormality Reference (Units ) Status BUN 02/02/2025 16:59:50 31 Above high normal 6-20 (mg/dL) Final Creatinine 02/02/2025 16:59:50 2.0 Above high normal 0.5-1.0 (mg/dL) Final Glomerular filtration rate/1.73 sq M.predicted [Volume Rate/Area] in Serum, Plasma or Blood by Creatinine-based formula (CKD-EPI) 02/02/2025 16:59:50 27 Below low normal >=60 (mL/min) Final eGFR is calculated based on the CKD-EPI 2020 equation. Sodium 02/02/2025 16:59:50 146 135-146 (m mol/L) Final Potassium 02/02/2025 16:59:50 3.8 3.5-5.1 (m mol/L) Final Cl 02/02/2025 16:59:50 102 98-107 (mm ol/L) Final CO2 02/02/2025 16:59:50 20 Below low normal 22- 32 (mmol/L) Final Anion gap 02/02/2025 16:59:50 24 Above high normal 7- 15 (mmol/L) Final Glucose 02/02/2025 16:59:50 260 Above high normal 70 -120 (mg/dL) Final Calcium 02/02/2025 16:59:50 8.9 8.4-10.2 ( mg/dL) Final Performing Location [facility]ORY [facility] [place] [address] [facility] [address]
--- OUTSIDE RECORDS SUMMARY | 2025-02-13 00:36 | External Medical Summary ---
Author Name Unknown Address Unknown Organization K01:LABORATORY [place] [address] [facility] [address] Laboratory Report Ordering Provider Test Date Status HELENA MO 02/02/2025 14:19:07 Final Observation Date Value Abnormality Reference (Units ) Status Clot formation [Time] in Blood by Thromboelastography 02/02/2025 14:19:07 6.2 2.5-8.3 (minutes) Final Clot strength in Blood by Thromboelastography 02/02/2025 14:19:07 1.8 0.5-3.7 (minutes) Final Clot angle in Blood by Thromboelastography 02/02/2025 14:19:07 65.9 46.8-78.4 (degrees) Final Maximum clot firmness [Length] in Blood by Thromboelastography 02/02/2025 14:19:07 57.3 50.6-72.5 (mm) Final This is an appended report. These results have been appended to a previously preliminary verified report. Coagulation index in Blood b y Thromboelastography 02/02/2025 14:19:07 -0.5 -3.0-3.0 F inal This is an appended report. These results have been appended to a previously preliminary verified report. Clot Lysis [Length fraction] in Blood by Thromboelastography --30 minutes post maximum clot amplitude 02/02/2025 14:19:07 0.0 0.0-7.5 (%) Final This is an appended report. These results have been appended to a previously preliminary verified report. Performing Location [place] [facility] [place] [address] [facility] [address]
--- OUTSIDE RECORDS SUMMARY | 2025-02-13 00:36 | External Medical Summary ---
Author Name Unknown Address Unknown Organization : Laboratory Report Ordering Provider Test Date Status AWILDA ROBERSON 02/02/2025 13:41:43 Final NORMAL (NON-HEPARINIZED) 74- 137 SECONDS
HEPARINIZED 200+ SECONDS
CRITICAL GREATER THAN 1000 SECONDS
null Observation Date Value Abnormality Reference (Units ) Status Kaolin activated time [Units/volume] in Blood 02/02/2025 13:41:43 141 50-1000 (secs) Final Performing Location
--- OUTSIDE RECORDS SUMMARY | 2025-02-13 00:36 | External Medical Summary ---
Author Name Unknown Address Unknown Organization K01:[place]ORY [facility] [place] [facility] [address] [facility] [address] Laboratory Report Ordering Provider Test Date Status HELENA MO 02/02/2025 14:19:07 Final Observation Date Value Abnormality Reference (Units ) Status WBC, Total 02/02/2025 14:19:07 10.27 4.00-10.80 (K/uL) Final RBC 02/02/2025 14:19:07 3.15 3.85-5.15 (M/uL) Final Hemoglobin 02/02/2025 14:19:07 9.8 Below low normal 12.0-15.3 (g/dL) Final HCT 02/02/2025 14:19:07 29.4 Below low normal 36.0-45.2 (%) Final MCV 02/02/2025 14:19:07 93.3 81.5-97.5 (fL) Final MCH 02/02/2025 14:19:07 31.1 27.0-34.0 (pg) Final MCHC 02/02/2025 14:19:07 33.3 32.0-36.0 (g/dL) Final RDW 02/02/2025 14:19:07 14.7 11.5-15.5 (%) Final Platelets 02/02/2025 14:19:07 62 Below low normal 140-400 (K/uL) Final MPV 02/02/2025 14:19:07 10.2 6.6-11.1 (fL) Final Nucleated erythrocytes/100 leukocytes [Ratio] in Blood by Automated count 02/02/2025 14:19:07 2 Above high normal <=0 (/100 WBCs) Final Performing Location LABORATORY [facility] [place] [address] [place] [address]
--- OUTSIDE RECORDS SUMMARY | 2025-02-13 00:36 | External Medical Summary ---
Author Name Unknown Address Unknown Organization K01:LABORATORY [place] [address] [facility] [address] Laboratory Report Ordering Provider Test Date Status HELENA MO 02/02/2025 15:58:04 Final Observation Date Value Abnormality Reference (Units ) Status Clot formation [Time] in Blood by Thromboelastography 02/02/2025 15:58:04 6.7 2.5-8.3 (minutes) Final Clot strength in Blood by Thromboelastography 02/02/2025 15:58:04 2.5 0.5-3.7 (minutes) Final Clot angle in Blood by Thromboelastography 02/02/2025 15:58:04 60.6 46.8-78.4 (degrees) Final Maximum clot firmness [Length] in Blood by Thromboelastography 02/02/2025 15:58:04 53.2 50.6-72.5 (mm) Final This is an appended report. These results have been appended to a previously preliminary verified report. Coagulation index in Blood b y Thromboelastography 02/02/2025 15:58:04 -2.0 -3.0-3.0 F inal This is an appended report. These results have been appended to a previously preliminary verified report. Clot Lysis [Length fraction] in Blood by Thromboelastography --30 minutes post maximum clot amplitude 02/02/2025 15:58:04 0.0 0.0-7.5 (%) Final This is an appended report. These results have been appended to a previously preliminary verified report. Performing Location LABORATORY [place] [address] [facility] [address]
--- OUTSIDE RECORDS SUMMARY | 2025-02-13 00:36 | External Medical Summary ---
Author Name Unknown Address Unknown Organization K01:[place] [facility] [place] [address] [place] [address] Laboratory Report Ordering Provider Test Date Status KATRINELBERT 02/02/2025 16:59:50 Final Observation Date Value Abnormality Reference (Units ) Status Antithrombin III 02/02/2025 16:59:50 67 Below low nor mal 80-120 (%) Final Performing Location LAB[facility]ATORY [facility] [place] [address] [place] [address]
--- OUTSIDE RECORDS SUMMARY | 2025-02-13 00:36 | External Medical Summary ---
Author Name Unknown Address Unknown Organization K01:[place] [facility] [place] [address] [place] [address] Laboratory Report Ordering Provider Test Date Status ELBERT WILKES 02/02/2025 16:59:50 Final Observation Date Value Abnormality Reference (Units ) Status Magnesium 02/02/2025 16:59:50 3.2 Above high normal 1. 5-2.6 (mg/dL) Final Performing Location LABORATORY [facility] - [address] [place] [address]
--- OUTSIDE RECORDS SUMMARY | 2025-02-13 00:36 | External Medical Summary ---
Author Name Unknown Address Unknown Organization K01:LABORATORY [facility] [place] - [address] [place] [address] Laboratory Report Ordering Provider Test Date Status HELENA MO 02/02/2025 14:19:07 Final Warfarin Therapy
INR: 2 .0-3.0 conventional anticoagulation
INR: 2.5- 3.5 high intensity anticoagulation Observation Date Value Abnormality Reference (Units ) Status PT 02/02/2025 14:19:07 14.3 11.6-15.2 (seconds) Final INR 02/02/2025 14:19:07 1.1 0.8-1.2 Final Performing Location LABORATORY [facility] [place] [place] - [address] [place] [address]
--- OUTSIDE RECORDS SUMMARY | 2025-02-13 00:36 | External Medical Summary ---
Author Name Unknown Address Unknown Organization K01:[place] [facility] [place] [address] [facility] [address] Laboratory Report Ordering Provider Test Date Status HELENA MO 02/02/2025 14:19:07 Final Observation Date Value Abnormality Reference (Units ) Status Body temperature 02/02/2025 14:19:07 37.0 (C) Final pH of Arterial blood 02/02/2025 14:19:07 7.370 7.350-7.450 (units) Final Carbon dioxide [Partial pressure] in Arterial blood 02/02/2025 14:19:07 44.2 35.0-45.0 (mmHg) Final Oxygen [Partial pressure] in Arterial blood 02/02/2025 14:19:07 133.0 Above high normal 75.0-100.0 (mmHg) Final Base excess, Arterial 02/02/2025 14:19:07 0.1 -2.0-2.0 (mmol/L) Final Hemoglobin [Mass/volume] in Blood by Oximetry 02/02/2025 14:19:07 10.3 Below low normal 12.0-15.3 (g/dL) Final Oxyhemoglobin, Arterial (FO2HB) 02/02/2025 14:19:07 95.2 94.0-99.0 (% total Hgb) Final Carboxyhemoglobin 02/02/2025 14:19:07 2.2 Above high normal <=1.5 (% total Hgb) Final Smokers: 0-9.0 % Methemoglobin 02/02/2025 14:19:07 1.8 Above high normal <=1.5 (% total Hgb) Final Deoxyhemoglobin/Hemog lobin.total in Arterial blood 02/02/2025 14:19:07 0.8 0.0-5.0 (% total Hgb) Final Oxygen content in Arterial blood 02/02/2025 14:19:07 14.1 Below low normal 15.0-24.0 (%vol) Final Potassium, Whole Blood 02/02/2025 14:19:07 4.2 3.5-5.1 (mmol/L) Final Sodium, Whole Blood 02/02/2025 14:19:07 141 135-146 (mmol/L) Final Chloride, Whole Blood 02/02/2025 14:19:07 104 98-107 (mmol/L) Final Calcium.ionized [Moles/volume] in Blood by Ion-selective membrane electrode (ISE) 02/02/2025 14:19:07 1.26 1.13-1.32 (mmol/L) Final Anion gap, Whole Blood 02/02/2025 14:19:07 12.6 7.0-15.0 (mmol/L) Final Glucose, whole blood 02/02/2025 14:19:07 207 Above high normal 70-120 (mg/dL) Final Oxygen/Total gas setting [Volume Fraction] Ventilator 02/02/2025 14:19:07 Not Provided (%) Final O2 FLOW, ARTERIAL - [facility] 02/02/2025 14:19:07 Not Provided (L/min) Final Bicarbonate, Venous, POC (i-STAT) 02/02/2025 14:19:07 24.9 23.0-31.0 (mmol/L) Final Performing Location [facility]ORY [facility] [place] [address] [facility] [address]
--- OUTSIDE RECORDS SUMMARY | 2025-02-13 00:36 | External Medical Summary ---
Author Name Unknown Address Unknown Organization K01:LABORATORY [facility] [place] [address] [place] [address] Laboratory Report Ordering Provider Test Date Status ELBERT WILKES 02/02/2025 16:59:50 Final Stop Collection after Casey kirkpatrick is removed Observation Date Value Abnormality Reference (Units ) Status Oxygen saturation in Venous blood 02/02/2025 16:59:50 72.2 40.0-85.0 (%) Final Performing Location LABORATORY [facility] [place] [address] [place] [address]
--- OUTSIDE RECORDS SUMMARY | 2025-02-13 00:36 | External Medical Summary ---
Author Name Unknown Address Unknown Organization K01:LABORATORY [place] - [address] [facility] [address] Laboratory Report Ordering Provider Test Date Status HELENA MO 02/02/2025 15:58:04 Final Anticoagulation may affect t esting. Refer to [facility] Test Catalog for a list of effects. Observation Date Value Abnormality Reference (Units ) Status aPTT panel - Platelet poor plasma 02/02/2025 15:58:04 71 Above high normal 21-38 (seconds) Final Performing Location LABORATORY [place] - [address] [facility] [address]
--- OUTSIDE RECORDS SUMMARY | 2025-02-13 00:36 | External Medical Summary ---
Author Name Unknown Address Unknown Organization : Laboratory Report Ordering Provider Test Date Status AWILDA ROBERSON 02/02/2025 14:08:38 Final Observation Date Value Abnormality Reference (Units) Status Blood draw [PhenX] 02/02/2025 14:08:38 Arterial Draw Final pH, POC (i-STAT) 02/02/2025 14:08:38 7.361 7.350-7.450 Final PCO2 POC (i-STAT) 02/02/2025 14:08:38 43.2 35.0-45.0 (mm Hg) Final PO2 POC (i-STAT) 02/02/2025 14:08:38 123 Above high normal 75-100 (mm Hg) Final Base excess standard in Arterial blood by calculation 02/02/2025 14:08:38 -1 -2-2 (mmol/L) Final Bicarbonate, Venous, POC (i-STAT) 02/02/2025 14:08:38 24.4 23.0-31.0 (mmol/L) Final O2 Sat, calculated POC (i-STAT) 02/02/2025 14:08:38 99.0 Above high normal 94.0-98.0 (%) Final Glucose, whole blood 02/02/2025 14:08:38 198 Above high normal 70-120 (mg/dL) Final Potassium, Whole Blood 02/02/2025 14:08:38 4.3 3.5-5.1 (mmol/L) Final Sodium, Whole Blood 02/02/2025 14:08:38 142 135-146 (mmol/L) Final Calcium, Ionized, Whole Blood 02/02/2025 14:08:38 0.95 Below low normal 1.13-1.32 (mmol/L) Final Hemoglobin POC (i-STAT) 02/02/2025 14:08:38 10.9 Below low normal 12.0-15.3 (g/dL) Final HCT 02/02/2025 14:08:38 32 Below low normal 36-45 (%) Final Performing Location
--- OUTSIDE RECORDS SUMMARY | 2025-02-13 00:36 | External Medical Summary ---
Author Name Unknown Address Unknown Organization K01:LABORATORY [facility] [place] - [facility] [address] [place] [address] Laboratory Report Ordering Provider Test Date Status ELBERT WILKES 02/02/2025 16:59:50 Final Observation Date Value Abnormality Reference (Units ) Status Heparin, unfractionated level 02/02/2025 16:59:50 <0.10 <0.10 (IU/mL) Final Anti-Xa Therapeutic Ranges<b r/>
Neurology/Stroke: 0.15 to 0.35 IU/mL
Cardiology/Acute Coronory Syndrome: 0.3 to 0.6 IU/mL
Deep Vein Thrombosis/Pulmonary Embolus (DVT/PE): 0.3 to 0.7 IU/mL

Note: Hemolysis, icterus, lipemia and very low antithrombin III activity (< 30%) may falsely decrease anti-Xa levels. If anti-Xa subtherapeutic after 3 consecutive titrations, recommend APTT and antithrombin III levels. If APTT >120 seconds rule out hemolysis or icterus. Consult laboratory medicine with any questions. Performing Location LABORATORY [facility] [place] - [facility] [address] [place] [address]
--- OUTSIDE RECORDS SUMMARY | 2025-02-13 00:36 | External Medical Summary ---
Author Name Unknown Address Unknown Organization K01:LABORATORY [facility] [place] - [facility] [address] [facility] [address] Laboratory Report Ordering Provider Test Date Status HELENA MO 02/02/2025 15:58:04 Final Observation Date Value Abnormality Reference (Units ) Status Clot formation [Time] in Blood by Thromboelastography 02/02/2025 15:58:04 6.8 2.5-8.3 (minutes) Final Clot strength in Blood by Thromboelastography 02/02/2025 15:58:04 2.8 0.5-3.7 (minutes) Final Clot angle in Blood by Thromboelastography 02/02/2025 15:58:04 58.2 46.8-78.4 (degrees) Final Maximum clot firmness [Length] in Blood by Thromboelastography 02/02/2025 15:58:04 50.8 50.6-72.5 (mm) Final This is an appended report. These results have been appended to a previously preliminary verified report. Coagulation index in Blood b y Thromboelastography 02/02/2025 15:58:04 -2.6 -3.0-3.0 F inal This is an appended report. These results have been appended to a previously preliminary verified report. Clot Lysis [Length fraction] in Blood by Thromboelastography --30 minutes post maximum clot amplitude 02/02/2025 15:58:04 0.0 0.0-7.5 (%) Final This is an appended report. These results have been appended to a previously preliminary verified report. Performing Location LABORATORY [facility] [place] - [address] [facility] [address]
--- OUTSIDE RECORDS SUMMARY | 2025-02-13 00:36 | External Medical Summary ---
Author Name Unknown Address Unknown Organization K01:LABORATORY [facility] [place] - [address] [facility] [place] [address] Laboratory Report Ordering Provider Test Date Status ELBERT WILKES 02/02/2025 18:09:43 Final Observation Date Value Abnormality Reference (Units ) Status Body temperature 02/02/2025 18:09:43 37.0 (C) Final pH of Arterial blood 02/02/2025 18:09:43 7.331 Below low normal 7.350-7.450 (units) Final Carbon dioxide [Partial pressure] in Arterial blood 02/02/2025 18:09:43 42.2 35.0-45.0 (mmHg) Final Oxygen [Partial pressure] in Arterial blood 02/02/2025 18:09:43 168.0 Above high normal 75.0-100.0 (mmHg) Final Base excess, Arterial 02/02/2025 18:09:43 -3.5 Below low normal -2.0-2.0 (mmol/L) Final Hemoglobin [Mass/volume] in Blood by Oximetry 02/02/2025 18:09:43 9.9 Below low normal 12.0-15.3 (g/dL) Final Oxyhemoglobin, Arterial (FO2HB) 02/02/2025 18:09:43 95.7 94.0-99.0 (% total Hgb) Final Carboxyhemoglobin 02/02/2025 18:09:43 1.8 Above high normal <=1.5 (% total Hgb) Final Smokers: 0-9.0 % Methemoglobin 02/02/2025 18:09:43 1.9 Above high normal <=1.5 (% total Hgb) Final Deoxyhemoglobin/Hemog lobin.total in Arterial blood 02/02/2025 18:09:43 0.6 0.0-5.0 (% total Hgb) Final Oxygen content in Arterial blood 02/02/2025 18:09:43 13.6 Below low normal 15.0-24.0 (%vol) Final Potassium, Whole Blood 02/02/2025 18:09:43 3.3 Below low normal 3.5-5.1 (mmol/L) Final Sodium, Whole Blood 02/02/2025 18:09:43 143 135-146 (mmol/L) Final Chloride, Whole Blood 02/02/2025 18:09:43 103 98-107 (mmol/L) Final Calcium.ionized [Moles/volume] in Blood by Ion-selective membrane electrode (ISE) 02/02/2025 18:09:43 1.14 1.13-1.32 (mmol/L) Final Anion gap, Whole Blood 02/02/2025 18:09:43 17.9 Above high normal 7.0-15.0 (mmol/L) Final Glucose, whole blood 02/02/2025 18:09:43 250 Above high normal 70-120 (mg/dL) Final Oxygen/Total gas setting [Volume Fraction] Ventilator 02/02/2025 18:09:43 50 (%) Final O2 FLOW, ARTERIAL - [facility] 02/02/2025 18:09:43 Not Provided (L/min) Final Bicarbonate, Venous, POC (i-STAT) 02/02/2025 18:09:43 21.7 Below low normal 23.0-31.0 (mmol/L) Final Performing Location LABORATORY [facility] [place] - [address] [facility] [address]
--- OUTSIDE RECORDS SUMMARY | 2025-02-13 00:36 | External Medical Summary ---
Author Name Unknown Address Unknown Organization K01:LABORATORY [facility] [place] - [facility] [place] [address] [facility] [address] Laboratory Report Ordering Provider Test Date Status HELENA MO 02/02/2025 14:19:07 Final Observation Date Value Abnormality Reference (Units ) Status Clot formation [Time] in Blood by Thromboelastography 02/02/2025 14:19:07 6.1 2.5-8.3 (minutes) Final Clot strength in Blood by Thromboelastography 02/02/2025 14:19:07 1.9 0.5-3.7 (minutes) Final Clot angle in Blood by Thromboelastography 02/02/2025 14:19:07 65.8 46.8-78.4 (degrees) Final Maximum clot firmness [Length] in Blood by Thromboelastography 02/02/2025 14:19:07 56.9 50.6-72.5 (mm) Final This is an appended [...] previously preliminary verified report. Performing Location LABORATORY [facility] [place] - [address] [facility] [address]
--- OUTSIDE RECORDS SUMMARY | 2025-02-13 00:36 | External Medical Summary ---
Author Name Unknown Address Unknown Organization K01:LABORATORY [facility] [place] - [address] [place] [address] Laboratory Report Ordering Provider Test Date Status ELBERT WILKES 02/02/2025 17:00:05 Final Observation Date Value Abnormality Reference (Units ) Status Body temperature 02/02/2025 17:00:05 37.0 (C) Final pH of Arterial blood 02/02/2025 17:00:05 7.338 Below low normal 7.350-7.450 (units) Final Carbon dioxide [Partial pressure] in Arterial blood 02/02/2025 17:00:05 43.1 35.0-45.0 (mmHg) Final Oxygen [Partial pressure] in Arterial blood 02/02/2025 17:00:05 303.0 Above high normal 75.0-100.0 (mmHg) Final Base excess, Arterial 02/02/2025 17:00:05 -2.6 Below low normal -2.0-2.0 (mmol/L) Final Hemoglobin [Mass/volume] in Blood by Oximetry 02/02/2025 17:00:05 9.9 Below low normal 12.0-15.3 (g/dL) Final Oxyhemoglobin, Arterial (FO2HB) 02/02/2025 17:00:05 96.2 94.0-99.0 (% total Hgb) Final Carboxyhemoglobin 02/02/2025 17:00:05 1.8 Above high normal <=1.5 (% total Hgb) Final Smokers: 0-9.0 % Methemoglobin 02/02/2025 17:00:05 1.8 Above high normal <=1.5 (% total Hgb) Final Deoxyhemoglobin/Hemog lobin.total in Arterial blood 02/02/2025 17:00:05 0.2 0.0-5.0 (% total Hgb) Final Oxygen content in Arterial blood 02/02/2025 17:00:05 14.2 Below low normal 15.0-24.0 (%vol) Final Potassium, Whole Blood 02/02/2025 17:00:05 3.7 3.5-5.1 (mmol/L) Final Sodium, Whole Blood 02/02/2025 17:00:05 142 135-146 (mmol/L) Final Chloride, Whole Blood 02/02/2025 17:00:05 105 98-107 (mmol/L) Final Calcium.ionized [Moles/volume] in Blood by Ion-selective membrane electrode (ISE) 02/02/2025 17:00:05 1.10 Below low normal 1.13-1.32 (mmol/L) Final Anion gap, Whole Blood 02/02/2025 17:00:05 14.5 7.0-15.0 (mmol/L) Final Glucose, whole blood 02/02/2025 17:00:05 267 Above high normal 70-120 (mg/dL) Final Oxygen/Total gas setting [Volume Fraction] Ventilator 02/02/2025 17:00:05 100 (%) Final O2 FLOW, ARTERIAL - [facility] 02/02/2025 17:00:05 Not Provided (L/min) Final Bicarbonate, Venous, POC (i-STAT) 02/02/2025 17:00:05 22.5 Below low normal 23.0-31.0 (mmol/L) Final Performing Location LABORATORY [facility] [place] - [address] [facility] [address]
--- OUTSIDE RECORDS SUMMARY | 2025-02-13 00:36 | External Medical Summary ---
Author Name Unknown Address Unknown Organization K01:LAB[place]ORY [facility] [place] [address] [place] [address] Laboratory Report Ordering Provider Test Date Status HELENA MO 02/02/2025 15:58:04 Final Observation Date Value Abnormality Reference (Units ) Status Fibrinogen 02/02/2025 15:58:04 236 178-467 ( mg/dL) Final Performing Location LABORATORY [facility] - [address] [place] [address]
--- OUTSIDE RECORDS SUMMARY | 2025-02-13 00:36 | External Medical Summary ---
Author Name Unknown Address Unknown Organization [id number]:LAB[place]ATORY [facility] [place] [address] [facility] [address] Laboratory Report Ordering Provider Test Date Status HELENA MO 02/02/2025 15:58:04 Final Observation Date Value Abnormality Reference (Units ) Status Body temperature 02/02/2025 15:58:04 37.0 (C) Final pH of Arterial blood 02/02/2025 15:58:04 7.341 Below low normal 7.350-7.450 (units) Final Carbon dioxide [Partial pressure] in Arterial blood 02/02/2025 15:58:04 44.3 35.0-45.0 (mmHg) Final Oxygen [Partial pressure] in Arterial blood 02/02/2025 15:58:04 127.0 Above high normal 75.0-100.0 (mmHg) Final Base excess, Arterial 02/02/2025 15:58:04 -1.8 -2.0-2.0 (mmol/L) Final Hemoglobin [Mass/volume] in Blood by Oximetry 02/02/2025 15:58:04 9.1 Below low normal 12.0-15.3 (g/dL) Final Oxyhemoglobin, Arterial (FO2HB) 02/02/2025 15:58:04 94.8 94.0-99.0 (% total Hgb) Final Carboxyhemoglobin 02/02/2025 15:58:04 2.3 Above high normal <=1.5 (% total Hgb) Final Smokers: 0-9.0 % Methemoglobin 02/02/2025 15:58:04 1.6 Above high normal <=1.5 (% total Hgb) Final Deoxyhemoglobin/Hemog lobin.total in Arterial blood 02/02/2025 15:58:04 1.3 0.0-5.0 (% total Hgb) Final Oxygen content in Arterial blood 02/02/2025 15:58:04 12.4 Below low normal 15.0-24.0 (%vol) Final Potassium, Whole Blood 02/02/2025 15:58:04 3.7 3.5-5.1 (mmol/L) Final Sodium, Whole Blood 02/02/2025 15:58:04 142 135-146 (mmol/L) Final Chloride, Whole Blood 02/02/2025 15:58:04 105 98-107 (mmol/L) Final Calcium.ionized [Moles/volume] in Blood by Ion-selective membrane electrode (ISE) 02/02/2025 15:58:04 1.11 Below low normal 1.13-1.32 (mmol/L) Final Anion gap, Whole Blood 02/02/2025 15:58:04 13.6 7.0-15.0 (mmol/L) Final Glucose, whole blood 02/02/2025 15:58:04 257 Above high normal 70-120 (mg/dL) Final Oxygen/Total gas setting [Volume Fraction] Ventilator 02/02/2025 15:58:04 Not Provided (%) Final O2 FLOW, [facility] - [facility] 02/02/2025 15:58:04 Not Provided (L/min) Final Bicarbonate, Venous, POC (i-STAT) 02/02/2025 15:58:04 23.3 23.0-31.0 (mmol/L) Final Performing Location LAB[facility]ATORY [facility] [place] [address] [facility] [address]
--- OUTSIDE RECORDS SUMMARY | 2025-02-13 00:36 | External Medical Summary ---
Author Name Unknown Address Unknown Organization [id number]:LABORATORY [facility] – [place] - [address] [place] [address] Laboratory Report Ordering Provider Test Date Status HELENA MO 02/02/2025 14:19:07 Final Observation Date Value Abnormality Reference (Units ) Status Fibrinogen 02/02/2025 14:19:07 295 178-467 ( mg/dL) Final Performing Location LABORATORY [facility] - [address] [place] [address]
--- OUTSIDE RECORDS SUMMARY | 2025-02-13 00:36 | External Medical Summary ---
Author Name Unknown Address Unknown Organization [id number]:LABORATORY [facility] [place] - [facility] [address] [facility] [address] Laboratory Report Ordering Provider Test Date Status ELBERT WILKES 02/02/2025 16:59:50 Final Observation Date Value Abnormality Reference (Units) Status Clot formation [Time] in Blood by Thromboelastography 02/02/2025 16:59:50 10.6 Above high normal 2.5-8.3 (minutes) Final Clot strength in Blood by Thromboelastography 02/02/2025 16:59:50 4.2 Above high normal 0.5-3.7 (minutes) Final Clot angle in Blood by Thromboelastography 02/02/2025 16:59:50 47.5 46.8-78.4 (degrees) Final Maximum clot firmness [Length] in Blood by Thromboelastography 02/02/2025 16:59:50 49.4 Below low normal 50.6-72.5 (mm) Final This is an appended report. These results have been appended to a previously preliminary verified report. Coagulation index in Blood b y Thromboelastography 02/02/2025 16:59:50 -6.6 Below low normal -3.0-3.0 Final This is an appended report. These results have been appended to a previously preliminary verified report. Clot Lysis [Length fraction] in Blood by Thromboelastography --30 minutes post maximum clot amplitude 02/02/2025 16:59:50 0.0 0.0-7.5 (%) Final This is an appended report. These results have been appended to a previously preliminary verified report. Performing Location LABORATORY [facility] [place] - [facility] [address] [facility] [address]
--- OUTSIDE RECORDS SUMMARY | 2025-02-13 00:36 | External Medical Summary ---
Author Name Unknown Address Unknown Organization : Laboratory Report Ordering Provider Test Date Status AWILDA ROBERSON 02/02/2025 16:57:13 Final Observation Date Value Abnormality Reference (Units ) Status Glucose Point of Care 02/02/2025 16:57:13 245 Above high normal 70-120 (mg/dL) Final Performing Location
--- OUTSIDE RECORDS SUMMARY | 2025-02-13 00:36 | External Medical Summary ---
Author Name Unknown Address Unknown Organization K01:[place]ORY [facility] [place] [address] [place] [address] Laboratory Report Ordering Provider Test Date Status ELBERT WILKES 02/02/2025 16:59:50 Final Observation Date Value Abnormality Reference (Units ) Status WBC, Total 02/02/2025 16:59:50 10.66 4.00-10.80 (K/uL) Final RBC 02/02/2025 16:59:50 3.10 3.85-5.15 (M/uL) Final Hemoglobin 02/02/2025 16:59:50 9.7 Below low normal 12.0-15.3 (g/dL) Final HCT 02/02/2025 16:59:50 28.7 Below low normal 36.0-45.2 (%) Final MCV 02/02/2025 16:59:50 92.6 81.5-97.5 (fL) Final MCH 02/02/2025 16:59:50 31.3 27.0-34.0 (pg) Final MCHC 02/02/2025 16:59:50 33.8 32.0-36.0 (g/dL) Final RDW 02/02/2025 16:59:50 14.7 11.5-15.5 (%) Final Platelets 02/02/2025 16:59:50 45 Below low normal 140-400 (K/uL) Final MPV 02/02/2025 16:59:50 10.4 6.6-11.1 (fL) Final Nucleated erythrocytes/100 leukocytes [Ratio] in Blood by Automated count 02/02/2025 16:59:50 3 Above high normal <=0 (/100 WBCs) Final Performing Location LABORATORY [facility] [place] [address] [place] [address]
--- OUTSIDE RECORDS SUMMARY | 2025-02-13 00:36 | External Medical Summary ---
Author Name Unknown Address Unknown Organization K01:LABORATORY [place] [address] [facility] [address] Laboratory Report Ordering Provider Test Date Status ELBERT WILKES 02/02/2025 16:59:50 Final Observation Date Value Abnormality Reference (Units ) Status Clot formation [Time] in Blood by Thromboelastography 02/02/2025 16:59:50 8.1 2.5-8.3 (minutes) Final Clot strength in Blood by Thromboelastography 02/02/2025 16:59:50 2.6 0.5-3.7 (minutes) Final Clot angle in Blood by Thromboelastography 02/02/2025 16:59:50 58.5 46.8-78.4 (degrees) Final Maximum clot firmness [Length] in Blood by Thromboelastography 02/02/2025 16:59:50 52.7 50.6-72.5 (mm) Final This is an appended report. These results have been appended to a previously preliminary verified report. Coagulation index in Blood b y Thromboelastography 02/02/2025 16:59:50 -3.1 Below low normal -3.0-3.0 Final This is an appended report. These results have been appended to a previously preliminary verified report. Clot Lysis [Length fraction] in Blood by Thromboelastography --30 minutes post maximum clot amplitude 02/02/2025 16:59:50 0.0 0.0-7.5 (%) Final This is an appended report. These results have been appended to a previously preliminary verified report. Performing Location LAB[facility]ATORY [facility] [place] [address] [facility] [address]
--- OUTSIDE RECORDS SUMMARY | 2025-02-13 00:36 | External Medical Summary ---
Author Name Unknown Address Unknown Organization K01:[place] [facility] [place] [address] [place] [address] Laboratory Report Ordering Provider Test Date Status E,LIT 02/02/2025 16:59:50 Final Observation Date Value Abnormality Reference (Units ) Status Potassium, Whole Blood 02/02/2025 16:59:50 3.6 3.5-5.1 (mmol/L) Final Performing Location [place] [facility] [place] [address] [place] [address]
--- OUTSIDE RECORDS SUMMARY | 2025-02-13 00:37 | External Medical Summary ---
Author Name Unknown Address Unknown Organization : Laboratory Report Ordering Provider Test Date Status AWILDA ROBERSON 02/02/2025 10:30:02 Final Observation Date Value Abnormality Reference (Units) Status Blood draw [PhenX] 02/02/2025 10:30:02 Arterial Draw Final pH, POC (i-STAT) 02/02/2025 10:30:02 7.386 7.350-7.450 Final PCO2 POC (i-STAT) 02/02/2025 10:30:02 36.9 35.0-45.0 (mm Hg) Final PO2 POC (i-STAT) 02/02/2025 10:30:02 260 Above high normal 75-100 (mm Hg) Final Base excess standard in Arterial blood by calculation 02/02/2025 10:30:02 -3 Below low normal -2-2 (mmol/L) Final Bicarbonate, Venous, POC (i-STAT) 02/02/2025 10:30:02 22.2 Below low normal 23.0-31.0 (mmol/L) Final O2 Sat, calculated POC (i-STAT) 02/02/2025 10:30:02 100.0 Above high normal 94.0-98.0 (%) Final Glucose, whole blood 02/02/2025 10:30:02 147 Above high normal 70-120 (mg/dL) Final Potassium, Whole Blood 02/02/2025 10:30:02 4.1 3.5-5.1 (mmol/L) Final Sodium, Whole Blood 02/02/2025 10:30:02 138 135-146 (mmol/L) Final Calcium, Ionized, Whole Blood 02/02/2025 10:30:02 1.12 Below low normal 1.13-1.32 (mmol/L) Final Hemoglobin POC (i-STAT) 02/02/2025 10:30:02 8.5 Below low normal 12.0-15.3 (g/dL) Final HCT 02/02/2025 10:30:02 25 Below low normal 36-45 (%) Final Performing Location
--- OUTSIDE RECORDS SUMMARY | 2025-02-13 00:37 | External Medical Summary ---
Author Name Unknown Address Unknown Organization K01:[place] [facility] [place] [address] [place] [address] Laboratory Report Ordering Provider Test Date Status HELENA MO 02/02/2025 12:28:50 Final Observation Date Value Abnormality Reference (Units ) Status Antithrombin III 02/02/2025 12:28:50 72 Below low nor mal 80-120 (%) Final Performing Location [place] [facility] [place] [address] [place] [address]
--- OUTSIDE RECORDS SUMMARY | 2025-02-13 00:37 | External Medical Summary ---
Author Name Unknown Address Unknown Organization : Laboratory Report Ordering Provider Test Date Status AWILDA ROBERSON 02/02/2025 10:58:53 Final Observation Date Value Abnormality Reference (Units) Status Blood draw [PhenX] 02/02/2025 10:58:53 Arterial Draw Final pH, POC (i-STAT) 02/02/2025 10:58:53 7.353 7.350-7.450 Final PCO2 POC (i-STAT) 02/02/2025 10:58:53 40.3 35.0-45.0 (mm Hg) Final PO2 POC (i-STAT) 02/02/2025 10:58:53 211 Above high normal 75-100 (mm Hg) Final Base excess standard in Arterial blood by calculation 02/02/2025 10:58:53 -3 Below low normal -2-2 (mmol/L) Final Bicarbonate, Venous, POC (i-STAT) 02/02/2025 10:58:53 22.4 Below low normal 23.0-31.0 (mmol/L) Final O2 Sat, calculated POC (i-STAT) 02/02/2025 10:58:53 100.0 Above high normal 94.0-98.0 (%) Final Glucose, whole blood 02/02/2025 10:58:53 149 Above high normal 70-120 (mg/dL) Final Potassium, Whole Blood 02/02/2025 10:58:53 4.6 3.5-5.1 (mmol/L) Final Sodium, Whole Blood 02/02/2025 10:58:53 138 135-146 (mmol/L) Final Calcium, Ionized, Whole Blood 02/02/2025 10:58:53 1.06 Below low normal 1.13-1.32 (mmol/L) Final Hemoglobin POC (i-STAT) 02/02/2025 10:58:53 6.8 Below low normal 12.0-15.3 (g/dL) Final HCT 02/02/2025 10:58:53 20 Below lower panic limits 36-45 (%) Final Performing Location
--- OUTSIDE RECORDS SUMMARY | 2025-02-13 00:37 | External Medical Summary ---
Author Name Unknown Address Unknown Organization : Laboratory Report Ordering Provider Test Date Status AWILDA ROBERSON 02/02/2025 12:31:48 Final Observation Date Value Abnormality Reference (Units) Status Blood draw [PhenX] 02/02/2025 12:31:48 Arterial Draw Final pH, POC (i-STAT) 02/02/2025 12:31:48 7.375 7.350-7.450 Final PCO2 POC (i-STAT) 02/02/2025 12:31:48 42.8 35.0-45.0 (mm Hg) Final PO2 POC (i-STAT) 02/02/2025 12:31:48 412 Above high normal 75-100 (mm Hg) Final Base excess standard in Arterial blood by calculation 02/02/2025 12:31:48 0 -2-2 (mmol/L) Final Bicarbonate, Venous, POC (i-STAT) 02/02/2025 12:31:48 25.0 23.0-31.0 (mmol/L) Final O2 Sat, calculated POC (i-STAT) 02/02/2025 12:31:48 100.0 Above high normal 94.0-98.0 (%) Final Glucose, whole blood 02/02/2025 12:31:48 172 Above high normal 70-120 (mg/dL) Final Potassium, Whole Blood 02/02/2025 12:31:48 4.2 3.5-5.1 (mmol/L) Final Sodium, Whole Blood 02/02/2025 12:31:48 142 135-146 (mmol/L) Final Calcium, Ionized, Whole Blood 02/02/2025 12:31:48 0.84 Below low normal 1.13-1.32 (mmol/L) Final Hemoglobin POC (i-STAT) 02/02/2025 12:31:48 8.5 Below low normal 12.0-15.3 (g/dL) Final HCT 02/02/2025 12:31:48 25 Below low normal 36-45 (%) Final Performing Location
--- OUTSIDE RECORDS SUMMARY | 2025-02-13 00:37 | External Medical Summary ---
Author Name Unknown Address Unknown Organization : Laboratory Report Ordering Provider Test Date Status AWILDA ROBERSON 02/02/2025 10:07:56 Final NORMAL (NON-HEPARINIZED) 74- 137 SECONDS
HEPARINIZED 200+ SECONDS
CRITICAL GREATER THAN 1000 SECONDS
null Observation Date Value Abnormality Reference (Units ) Status Kaolin activated time [Units/volume] in Blood 02/02/2025 10:07:56 677 50-1000 (secs) Final Performing Location
--- OUTSIDE RECORDS SUMMARY | 2025-02-13 00:37 | External Medical Summary ---
Author Name Unknown Address Unknown Organization : Laboratory Report Ordering Provider Test Date Status AWILDA ROBERSON 02/02/2025 11:02:14 Final NORMAL (NON-HEPARINIZED) 74- 137 SECONDS
HEPARINIZED 200+ SECONDS
CRITICAL GREATER THAN 1000 SECONDS
null Observation Date Value Abnormality Reference (Units ) Status Kaolin activated time [Units/volume] in Blood 02/02/2025 11:02:14 406 50-1000 (secs) Final Performing Location
--- OUTSIDE RECORDS SUMMARY | 2025-02-13 00:37 | External Medical Summary ---
Author Name Unknown Address Unknown Organization : Laboratory Report Ordering Provider Test Date Status AWILDA ROBERSON 02/02/2025 08:03:01 Final Observation Date Value Abnormality Reference (Units) Status Blood draw [PhenX] 02/02/2025 08:03:01 Arterial Draw Final pH, POC (i-STAT) 02/02/2025 08:03:01 7.446 7.350-7.450 Final PCO2 POC (i-STAT) 02/02/2025 08:03:01 32.3 Below low normal 35.0-45.0 (mm Hg) Final PO2 POC (i-STAT) 02/02/2025 08:03:01 149 Above high normal 75-100 (mm Hg) Final Base excess standard in Arterial blood by calculation 02/02/2025 08:03:01 -2 -2-2 (mmol/L) Final Bicarbonate, Venous, POC (i-STAT) 02/02/2025 08:03:01 22.2 Below low normal 23.0-31.0 (mmol/L) Final O2 Sat, calculated POC (i-STAT) 02/02/2025 08:03:01 99.0 Above high normal 94.0-98.0 (%) Final Glucose, whole blood 02/02/2025 08:03:01 104 70-120 (mg/dL) Final Potassium, Whole Blood 02/02/2025 08:03:01 3.4 Below low normal 3.5-5.1 (mmol/L) Final Sodium, Whole Blood 02/02/2025 08:03:01 139 135-146 (mmol/L) Final Calcium, Ionized, Whole Blood 02/02/2025 08:03:01 1.26 1.13-1.32 (mmol/L) Final Hemoglobin POC (i-STAT) 02/02/2025 08:03:01 7.1 Below low normal 12.0-15.3 (g/dL) Final HCT 02/02/2025 08:03:01 21 Below lower panic limits 36-45 (%) Final Performing Location
--- OUTSIDE RECORDS SUMMARY | 2025-02-13 00:37 | External Medical Summary ---
Author Name Unknown Address Unknown Organization : Laboratory Report Ordering Provider Test Date Status AWILDA ROBERSON 02/02/2025 10:35:26 Final NORMAL (NON-HEPARINIZED) 74- 137 SECONDS
HEPARINIZED 200+ SECONDS
CRITICAL GREATER THAN 1000 SECONDS
null Observation Date Value Abnormality Reference (Units ) Status Kaolin activated time [Units/volume] in Blood 02/02/2025 10:35:26 550 50-1000 (secs) Final Performing Location
--- OUTSIDE RECORDS SUMMARY | 2025-02-13 00:37 | External Medical Summary ---
Author Name Unknown Address Unknown Organization K01:[place]ORY [facility] [place] [facility] [place] [address] Laboratory Report Ordering Provider Test Date Status HELENA MO 02/02/2025 12:28:50 Final Warfarin Therapy
INR: 2 .0-3.0 conventional anticoagulation
INR: 2.5- 3.5 high intensity anticoagulation Observation Date Value Abnormality Reference (Units ) Status PT 02/02/2025 12:28:50 21.1 Above high normal 11 .6-15.2 (seconds) Final INR 02/02/2025 12:28:50 1.8 Above high normal 0. 8-1.2 Final Performing Location LAB[facility]ORY [facility] [place] [address] [place] [address]
--- OUTSIDE RECORDS SUMMARY | 2025-02-13 00:37 | External Medical Summary ---
Author Name Unknown Address Unknown Organization : Laboratory Report Ordering Provider Test Date Status AWILDA ROBERSON 02/02/2025 09:11:07 Final NORMAL (NON-HEPARINIZED) 74- 137 SECONDS
HEPARINIZED 200+ SECONDS
CRITICAL GREATER THAN 1000 SECONDS
null Observation Date Value Abnormality Reference (Units ) Status Kaolin activated time [Units/volume] in Blood 02/02/2025 09:11:07 463 50-1000 (secs) Final Performing Location
--- OUTSIDE RECORDS SUMMARY | 2025-02-13 00:37 | External Medical Summary ---
Author Name Unknown Address Unknown Organization : Laboratory Report Ordering Provider Test Date Status AWILDA ROBERSON 02/02/2025 11:32:14 Final NORMAL (NON-HEPARINIZED) 74- 137 SECONDS
HEPARINIZED 200+ SECONDS
CRITICAL GREATER THAN 1000 SECONDS
null Observation Date Value Abnormality Reference (Units ) Status Kaolin activated time [Units/volume] in Blood 02/02/2025 11:32:14 435 50-1000 (secs) Final Performing Location
--- OUTSIDE RECORDS SUMMARY | 2025-02-13 00:37 | External Medical Summary ---
Author Name Unknown Address Unknown Organization : Laboratory Report Ordering Provider Test Date Status AWILDA ROBERSON 02/02/2025 08:55:33 Final NORMAL (NON-HEPARINIZED) 74- 137 SECONDS
HEPARINIZED 200+ SECONDS
CRITICAL GREATER THAN 1000 SECONDS
null Observation Date Value Abnormality Reference (Units ) Status Kaolin activated time [Units/volume] in Blood 02/02/2025 08:55:33 492 50-1000 (secs) Final Performing Location
--- OUTSIDE RECORDS SUMMARY | 2025-02-13 00:37 | External Medical Summary ---
Author Name Unknown Address Unknown Organization K01:LABORATORY [facility] [place] [address] [facility] [address] Laboratory Report Ordering Provider Test Date Status HELENA MO 02/02/2025 12:28:50 Final Anticoagulation may affect t esting. Refer to [facility] Test Catalog for a list of effects. Observation Date Value Abnormality Reference (Units ) Status aPTT panel - Platelet poor plasma 02/02/2025 12:28:50 160 Above upper panic limits 21-38 (seconds) Final Performing Location LABORATORY [facility] [place] - [facility] [address] [facility] [address]
--- OUTSIDE RECORDS SUMMARY | 2025-02-13 00:37 | External Medical Summary ---
Author Name Unknown Address Unknown Organization : Laboratory Report Ordering Provider Test Date Status AWILDA ROBERSON 02/02/2025 09:41:20 Final NORMAL (NON-HEPARINIZED) 74- 137 SECONDS
HEPARINIZED 200+ SECONDS
CRITICAL GREATER THAN 1000 SECONDS
null Observation Date Value Abnormality Reference (Units ) Status Kaolin activated time [Units/volume] in Blood 02/02/2025 09:41:20 798 50-1000 (secs) Final Performing Location
--- OUTSIDE RECORDS SUMMARY | 2025-02-13 00:37 | External Medical Summary ---
Author Name Unknown Address Unknown Organization K01:[place] [facility] [place] [address] [place] [address] Laboratory Report Ordering Provider Test Date Status AWILDA ROBERSON 02/02/2025 09:38:00 Final Observation Date Value Abnormality Reference (Units ) Status Platelets 02/02/2025 09:38:00 87 Below low normal 140 -400 (K/uL) Final Performing Location LABORATORY [facility] - [address] [place] [address]
--- OUTSIDE RECORDS SUMMARY | 2025-02-13 00:37 | External Medical Summary ---
Author Name Unknown Address Unknown Organization K01:[place] [facility] [place] [address] [place] [address] Laboratory Report Ordering Provider Test Date Status AWILDA ROBERSON 02/02/2025 09:38:00 Final Observation Date Value Abnormality Reference (Units ) Status Body temperature 02/02/2025 09:38:00 37.0 (C) Final pH of Venous blood 02/02/2025 09:38:00 7.336 7.320-7.430 (units) Final Carbon dioxide [Partial pressure] in Venous blood 02/02/2025 09:38:00 45.5 40.0-60.0 (mmHg) Final Oxygen [Partial pressure] in Venous blood 02/02/2025 09:38:00 52.1 Above high normal 25.0-50.0 (mmHg) Final Base excess, Capillary 02/02/2025 09:38:00 -1.5 -2.0-2.0 (mmol/L) Final Hemoglobin [Mass/volume] in Blood by Oximetry 02/02/2025 09:38:00 8.1 Below low normal 12.0-15.3 (g/dL) Final Oxyhemoglobin, Venous (FO2HB) 02/02/2025 09:38:00 77.3 40.0-85.0 (% total Hgb) Final Carboxyhemoglobin 02/02/2025 09:38:00 3.4 Above high normal <=1.5 (% total Hgb) Final Smokers: 0-9.0 % Methemoglobin 02/02/2025 09:38:00 4.0 Above h igh normal <=1.5 (% total Hgb) Final Deoxyhemoglobin/Hemoglo bin.total in Venous blood 02/02/2025 09:38:00 15.3 (% total Hgb) Final Oxygen content in Venous blood 02/02/2025 09:38:00 8.9 7.0-18.0 (%vol) Final Potassium, Whole Blood 02/02/2025 09:38:00 3.6 3.5-5.1 (mmol/L) Final Sodium, Whole Blood 02/02/2025 09:38:00 141 135-146 (mmol/L) Final Chloride, Whole Blood 02/02/2025 09:38:00 106 98-107 (mmol/L) Final Calcium.ionized [Moles/volume] in Blood by Ion-selective membrane electrode (ISE) 02/02/2025 09:38:00 1.24 1.13-1.32 (mmol/L) Final Anion gap, Whole Blood 02/02/2025 09:38:00 11.2 7.0-15.0 (mmol/L) Final Glucose, whole blood 02/02/2025 09:38:00 146 Above high normal 70-120 (mg/dL) Final Bicarbonate, Venous, POC (i-STAT) 02/02/2025 09:38:00 23.7 23.0-31.0 (mmol/L) Final Performing Location LAB[place]ORY [facility] [place] [address] [facility] [address]
--- OUTSIDE RECORDS SUMMARY | 2025-02-13 00:37 | External Medical Summary ---
Author Name Unknown Address Unknown Organization K01:LABORATORY [facility] [place] [address] [place] [address] Laboratory Report Ordering Provider Test Date Status HELENA MO 02/02/2025 12:28:50 Final Observation Date Value Abnormality Reference (Units) Status Clot formation [Time] in Blood by Thromboelastography 02/02/2025 12:28:50 11.9 Above high normal 2.5-8.3 (minutes) Final Clot strength in Blood by Thromboelastography 02/02/2025 12:28:50 1.9 0.5-3.7 (minutes) Final Clot angle in Blood by Thromboelastography 02/02/2025 12:28:50 63.1 46.8-78.4 (degrees) Final Maximum clot firmness [Length] in Blood by Thromboelastography 02/02/2025 12:28:50 58.3 50.6-72.5 (mm) Final Coagulation index in Blood by Thromboelastography 02/02/2025 12:28:50 -4.4 Below low normal -3.0-3.0 Final Clot Lysis [Length fraction] in Blood by Thromboelastography --30 minutes post maximum clot amplitude 02/02/2025 12:28:50 0.0 0.0-7.5 (%) Final This is an appended report. These results have been appended to a previously preliminary verified report. Performing Location LABORATORY [facility] [place] - [address] [place] [address]
--- OUTSIDE RECORDS SUMMARY | 2025-02-13 00:37 | External Medical Summary ---
Author Name Unknown Address Unknown Organization : Laboratory Report Ordering Provider Test Date Status AWILDA ROBERSON 02/02/2025 11:28:27 Final Observation Date Value Abnormality Reference (Units) Status Blood draw [PhenX] 02/02/2025 11:28:27 Arterial Draw Final pH, POC (i-STAT) 02/02/2025 11:28:27 7.409 7.350-7.450 Final PCO2 POC (i-STAT) 02/02/2025 11:28:27 35.9 35.0-45.0 (mm Hg) Final PO2 POC (i-STAT) 02/02/2025 11:28:27 199 Above high normal 75-100 (mm Hg) Final Base excess standard in Arterial blood by calculation 02/02/2025 11:28:27 -2 -2-2 (mmol/L) Final Bicarbonate, Venous, POC (i-STAT) 02/02/2025 11:28:27 22.7 Below low normal 23.0-31.0 (mmol/L) Final O2 Sat, calculated POC (i-STAT) 02/02/2025 11:28:27 100.0 Above high normal 94.0-98.0 (%) Final Glucose, whole blood 02/02/2025 11:28:27 168 Above high normal 70-120 (mg/dL) Final Potassium, Whole Blood 02/02/2025 11:28:27 5.4 Above high normal 3.5-5.1 (mmol/L) Final Sodium, Whole Blood 02/02/2025 11:28:27 138 135-146 (mmol/L) Final Calcium, Ionized, Whole Blood 02/02/2025 11:28:27 1.45 Above high normal 1.13-1.32 (mmol/L) Final Hemoglobin POC (i-STAT) 02/02/2025 11:28:27 8.8 Below low normal 12.0-15.3 (g/dL) Final HCT 02/02/2025 11:28:27 26 Below low normal 36-45 (%) Final Performing Location
--- OUTSIDE RECORDS SUMMARY | 2025-02-13 00:37 | External Medical Summary ---
Author Name Unknown Address Unknown Organization : Laboratory Report Ordering Provider Test Date Status AWILDA ROBERSON 02/02/2025 11:20:11 Final NORMAL (NON-HEPARINIZED) 74- 137 SECONDS
HEPARINIZED 200+ SECONDS
CRITICAL GREATER THAN 1000 SECONDS
null Observation Date Value Abnormality Reference (Units ) Status Kaolin activated time [Units/volume] in Blood 02/02/2025 11:20:11 521 50-1000 (secs) Final Performing Location
--- OUTSIDE RECORDS SUMMARY | 2025-02-13 00:37 | External Medical Summary ---
Author Name Unknown Address Unknown Organization [id number]:LAB[place]ATORY [facility] [place] [address] [facility] [address] Laboratory Report Ordering Provider Test Date Status AWILDA ROBERSON 02/02/2025 09:38:00 Final Observation Date Value Abnormality Reference (Units ) Status Body temperature 02/02/2025 09:38:00 37.0 (C) Final pH of Arterial blood 02/02/2025 09:38:00 7.348 Below low normal 7.350-7.450 (units) Final Carbon dioxide [Partial pressure] in Arterial blood 02/02/2025 09:38:00 42.7 35.0-45.0 (mmHg) Final Oxygen [Partial pressure] in Arterial blood 02/02/2025 09:38:00 219.0 Above high normal 75.0-100.0 (mmHg) Final Base excess, Arterial 02/02/2025 09:38:00 -2.0 -2.0-2.0 (mmol/L) Final Hemoglobin [Mass/volume] in Blood by Oximetry 02/02/2025 09:38:00 8.3 Below low normal 12.0-15.3 (g/dL) Final Oxyhemoglobin, Arterial (FO2HB) 02/02/2025 09:38:00 93.0 Below low normal 94.0-99.0 (% total Hgb) Final Carboxyhemoglobin 02/02/2025 09:38:00 3.1 Above high normal <=1.5 (% total Hgb) Final Smokers: 0-9.0 % Methemoglobin 02/02/2025 09:38:00 3.6 Above high normal <=1.5 (% total Hgb) Final Deoxyhemoglobin/Hemog lobin.total in Arterial blood 02/02/2025 09:38:00 0.3 0.0-5.0 (% total Hgb) Final Oxygen content in Arterial blood 02/02/2025 09:38:00 11.4 Below low normal 15.0-24.0 (%vol) Final Oxygen/Total gas setting [Volume Fraction] Ventilator 02/02/2025 09:38:00 Not Provided (%) Final O2 FLOW, ARTERIAL - [facility] 02/02/2025 09:38:00 Not Provided (L/min) Final Bicarbonate, Venous, POC (i-STAT) 02/02/2025 09:38:00 22.9 Below low normal 23.0-31.0 (mmol/L) Final Performing Location LABORATORY [facility] [place] [address] [facility] [address]
--- OUTSIDE RECORDS SUMMARY | 2025-02-13 00:37 | External Medical Summary ---
Author Name Unknown Address Unknown Organization [id number]:[place]ORY [facility] [place] [address] [place] [address] Laboratory Report Ordering Provider Test Date Status AWILDA ROBERSON 02/02/2025 09:38:00 Final Observation Date Value Abnormality Reference (Units ) Status Fibrinogen 02/02/2025 09:38:00 298 178-467 ( mg/dL) Final Performing Location LABORATORY [facility] - [address] [place] [address]
--- OUTSIDE RECORDS SUMMARY | 2025-02-13 00:37 | External Medical Summary ---
Author Name Unknown Address Unknown Organization K01:LABORATORY [address] [place] [address] Laboratory Report Ordering Provider Test Date Status AWILDA ROBERSON 02/02/2025 09:38:00 Final Observation Date Value Abnormality Reference (Units) Status Clot formation [Time] in Blood by Thromboelastography 02/02/2025 09:38:00 14.4 Above high normal 2.5-8.3 (minutes) Final Clot strength in Blood by Thromboelastography 02/02/2025 09:38:00 4.0 Above high normal 0.5-3.7 (minutes) Final Clot angle in Blood by Thromboelastography 02/02/2025 09:38:00 44.0 Below low normal 46.8-78.4 (degrees) Final Maximum clot firmness [Length] in Blood by Thromboelastography 02/02/2025 09:38:00 60.2 50.6-72.5 (mm) Final Coagulation index in Blood by Thromboelastography 02/02/2025 09:38:00 -8.0 Below low normal -3.0-3.0 Final Clot Lysis [Length fraction] in Blood by Thromboelastography --30 minutes post maximum clot amplitude 02/02/2025 09:38:00 0.1 0.0-7.5 (%) Final This is an appended report. These results have been appended to a previously preliminary verified report. Performing Location LABORATORY [place] [address] [place] [address]
--- OUTSIDE RECORDS SUMMARY | 2025-02-13 00:37 | External Medical Summary ---
Author Name Unknown Address Unknown Organization : Laboratory Report Ordering Provider Test Date Status AWILDA ROBERSON 02/02/2025 08:03:17 Final NORMAL (NON-HEPARINIZED) 74- 137 SECONDS
HEPARINIZED 200+ SECONDS
CRITICAL GREATER THAN 1000 SECONDS
null Observation Date Value Abnormality Reference (Units ) Status Kaolin activated time [Units/volume] in Blood 02/02/2025 08:03:17 153 50-1000 (secs) Final Performing Location
--- OUTSIDE RECORDS SUMMARY | 2025-02-13 00:37 | External Medical Summary ---
Author Name Unknown Address Unknown Organization K01:LABORATORY [facility] - [address] [place] [address] Laboratory Report Ordering Provider Test Date Status AWILDA ROBERSON 02/02/2025 09:38:00 Final If R time > 20 minutes and n o clot formed suggesting hypocoagulable state or interfering substance (anticoagulation). Consider resubmitting a new sample and/or checking PT/INR, aPTT, fibrinogen, and platelet count. Observation Date Value Abnormality Reference (Units) Status Clot formation [Time] in Blood by Thromboelastography 02/02/2025 09:38:00 >20.0 Above high normal 2.5-8.3 (minutes) Final Performing Location LABORATORY [facility] - [address] [place] [address]
--- OUTSIDE RECORDS SUMMARY | 2025-02-13 00:37 | External Medical Summary ---
Author Name Unknown Address Unknown Organization K01:LABORATORY [facility] [place] - [address] [facility] [place] [address] Laboratory Report Ordering Provider Test Date Status HELENA MO 02/02/2025 12:28:50 Final Observation Date Value Abnormality Reference (Units ) Status Body temperature 02/02/2025 12:28:50 37.0 (C) Final pH of Arterial blood 02/02/2025 12:28:50 7.356 7.350-7.450 (units) Final Carbon dioxide [Partial pressure] in Arterial blood 02/02/2025 12:28:50 46.4 Above high normal 35.0-45.0 (mmHg) Final Oxygen [Partial pressure] in Arterial blood 02/02/2025 12:28:50 366.0 Above high normal 75.0-100.0 (mmHg) Final Base excess, Arterial 02/02/2025 12:28:50 0.2 -2.0-2.0 (mmol/L) Final Hemoglobin [Mass/volume] in Blood by Oximetry 02/02/2025 12:28:50 8.9 Below low normal 12.0-15.3 (g/dL) Final Oxyhemoglobin, Arterial (FO2HB) 02/02/2025 12:28:50 94.7 94.0-99.0 (% total Hgb) Final Carboxyhemoglobin 02/02/2025 12:28:50 2.6 Above high normal <=1.5 (% total Hgb) Final Smokers: 0-9.0 % Methemoglobin 02/02/2025 12:28:50 2.6 Above high normal <=1.5 (% total Hgb) Final Deoxyhemoglobin/Hemog lobin.total in Arterial blood 02/02/2025 12:28:50 0.1 0.0-5.0 (% total Hgb) Final Oxygen content in Arterial blood 02/02/2025 12:28:50 12.7 Below low normal 15.0-24.0 (%vol) Final Potassium, Whole Blood 02/02/2025 12:28:50 3.9 3.5-5.1 (mmol/L) Final Sodium, Whole Blood 02/02/2025 12:28:50 143 135-146 (mmol/L) Final Chloride, Whole Blood 02/02/2025 12:28:50 104 98-107 (mmol/L) Final Calcium.ionized [Moles/volume] in Blood by Ion-selective membrane electrode (ISE) 02/02/2025 12:28:50 1.25 1.13-1.32 (mmol/L) Final Anion gap, Whole Blood 02/02/2025 12:28:50 13.2 7.0-15.0 (mmol/L) Final Glucose, whole blood 02/02/2025 12:28:50 166 Above high normal 70-120 (mg/dL) Final Oxygen/Total gas setting [Volume Fraction] Ventilator 02/02/2025 12:28:50 Not Provided (%) Final O2 FLOW, ARTERIAL - [facility] 02/02/2025 12:28:50 Not Provided (L/min) Final Bicarbonate, Venous, POC (i-STAT) 02/02/2025 12:28:50 25.3 23.0-31.0 (mmol/L) Final Performing Location LABORATORY [facility] [place] - [address] [facility] [address]
--- OUTSIDE RECORDS SUMMARY | 2025-02-13 00:37 | External Medical Summary ---
Author Name Unknown Address Unknown Organization : Laboratory Report Ordering Provider Test Date Status AIWLDA ROBERSON 02/02/2025 08:56:19 Final NORMAL (NON-HEPARINIZED) 74- 137 SECONDS
HEPARINIZED 200+ SECONDS
CRITICAL GREATER THAN 1000 SECONDS
null Observation Date Value Abnormality Reference (Units ) Status Kaolin activated time [Units/volume] in Blood 02/02/2025 08:56:19 538 50-1000 (secs) Final Performing Location
--- OUTSIDE RECORDS SUMMARY | 2025-02-13 00:37 | External Medical Summary ---
Author Name Unknown Address Unknown Organization : Laboratory Report Ordering Provider Test Date Status AWILDA ROBERSON 02/02/2025 09:06:19 Final Observation Date Value Abnormality Reference (Units) Status Blood draw [PhenX] 02/02/2025 09:06:19 Arterial Draw Final pH, POC (i-STAT) 02/02/2025 09:06:19 7.463 Above high normal 7.350-7.450 Final PCO2 POC (i-STAT) 02/02/2025 09:06:19 31.8 Below low normal 35.0-45.0 (mm Hg) Final PO2 POC (i-STAT) 02/02/2025 09:06:19 284 Above high normal 75-100 (mm Hg) Final Base excess standard in Arterial blood by calculation 02/02/2025 09:06:19 -1 -2-2 (mmol/L) Final Bicarbonate, Venous, POC (i-STAT) 02/02/2025 09:06:19 22.8 Below low normal 23.0-31.0 (mmol/L) Final O2 Sat, calculated POC (i-STAT) 02/02/2025 09:06:19 100.0 Above high normal 94.0-98.0 (%) Final Glucose, whole blood 02/02/2025 09:06:19 116 70-120 (mg/dL) Final Potassium, Whole Blood 02/02/2025 09:06:19 3.6 3.5-5.1 (mmol/L) Final Sodium, Whole Blood 02/02/2025 09:06:19 138 135-146 (mmol/L) Final Calcium, Ionized, Whole Blood 02/02/2025 09:06:19 1.17 1.13-1.32 (mmol/L) Final Hemoglobin POC (i-STAT) 02/02/2025 09:06:19 7.8 Below low normal 12.0-15.3 (g/dL) Final HCT 02/02/2025 09:06:19 23 Below low normal 36-45 (%) Final Performing Location
--- OUTSIDE RECORDS SUMMARY | 2025-02-13 00:37 | External Medical Summary ---
Author Name Unknown Address Unknown Organization : Laboratory Report Ordering Provider Test Date Status AWILDA ROBERSON 02/02/2025 13:40:15 Final Observation Date Value Abnormality Reference (Units) Status Blood draw [PhenX] 02/02/2025 13:40:15 Arterial Draw Final pH, POC (i-STAT) 02/02/2025 13:40:15 7.356 7.350-7.450 Final PCO2 POC (i-STAT) 02/02/2025 13:40:15 45.8 Above high normal 35.0-45.0 (mm Hg) Final PO2 POC (i-STAT) 02/02/2025 13:40:15 242 Above high normal 75-100 (mm Hg) Final Base excess standard in Arterial blood by calculation 02/02/2025 13:40:15 0 -2-2 (mmol/L) Final Bicarbonate, Venous, POC (i-STAT) 02/02/2025 13:40:15 25.7 23.0-31.0 (mmol/L) Final O2 Sat, calculated POC (i-STAT) 02/02/2025 13:40:15 100.0 Above high normal 94.0-98.0 (%) Final Glucose, whole blood 02/02/2025 13:40:15 180 Above high normal 70-120 (mg/dL) Final Potassium, Whole Blood 02/02/2025 13:40:15 4.4 3.5-5.1 (mmol/L) Final Sodium, Whole Blood 02/02/2025 13:40:15 140 135-146 (mmol/L) Final Calcium, Ionized, Whole Blood 02/02/2025 13:40:15 1.05 Below low normal 1.13-1.32 (mmol/L) Final Hemoglobin POC (i-STAT) 02/02/2025 13:40:15 9.5 Below low normal 12.0-15.3 (g/dL) Final HCT 02/02/2025 13:40:15 28 Below low normal 36-45 (%) Final Performing Location
--- OUTSIDE RECORDS SUMMARY | 2025-02-13 00:37 | External Medical Summary ---
Author Name Unknown Address Unknown Organization K01:LABORATORY [facility] [place] - [facility] [address] [facility] [address] Laboratory Report Ordering Provider Test Date Status HELENA MO 02/02/2025 12:28:50 Final Observation Date Value Abnormality Reference (Units ) Status WBC, Total 02/02/2025 12:28:50 9.62 4.00-10.80 (K/uL) Final RBC 02/02/2025 12:28:50 2.71 3.85-5.15 (M/uL) Final Hemoglobin 02/02/2025 12:28:50 8.7 Below low normal 12.0-15.3 (g/dL) Final HCT 02/02/2025 12:28:50 25.2 Below low normal 36.0-45.2 (%) Final MCV 02/02/2025 12:28:50 93.0 81.5-97.5 (fL) Final MCH 02/02/2025 12:28:50 32.1 27.0-34.0 (pg) Final MCHC 02/02/2025 12:28:50 34.5 32.0-36.0 (g/dL) Final RDW 02/02/2025 12:28:50 14.9 11.5-15.5 (%) Final Platelets 02/02/2025 12:28:50 83 Below low normal 140-400 (K/uL) Final MPV 02/02/2025 12:28:50 12.3 6.6-11.1 (fL) Final Nucleated erythrocytes/100 leukocytes [Ratio] in Blood by Automated count 02/02/2025 12:28:50 2 Above high normal <=0 (/100 WBCs) Final Performing Location LABORATORY [facility] [place] - [address] [place] [address]
--- OUTSIDE RECORDS SUMMARY | 2025-02-13 00:37 | External Medical Summary ---
Author Name Unknown Address Unknown Organization : Laboratory Report Ordering Provider Test Date Status AWILDA ROBERSON 02/02/2025 12:32:31 Final NORMAL (NON-HEPARINIZED) 74- 137 SECONDS
HEPARINIZED 200+ SECONDS
CRITICAL GREATER THAN 1000 SECONDS
null Observation Date Value Abnormality Reference (Units ) Status Kaolin activated time [Units/volume] in Blood 02/02/2025 12:32:31 147 50-1000 (secs) Final Performing Location
--- OUTSIDE RECORDS SUMMARY | 2025-02-13 00:37 | External Medical Summary ---
Author Name Unknown Address Unknown Organization K01:LABORATORY [facility] [place] - [address] [place] [address] Laboratory Report Ordering Provider Test Date Status AWILDA ROBERSON 02/02/2025 09:38:00 Final Observation Date Value Abnormality Reference (Units ) Status HCT 02/02/2025 09:38:00 23.7 Below low normal 36. 0-45.2 (%) Final Performing Location LABORATORY [facility] - [address] [place] [address]
--- OUTSIDE RECORDS SUMMARY | 2025-02-13 00:37 | External Medical Summary ---
Author Name Unknown Address Unknown Organization K01:LABORATORY [address] [facility] [address] Laboratory Report Ordering Provider Test Date Status HELENA MO 02/02/2025 12:28:50 Final Observation Date Value Abnormality Reference (Units) Status Clot formation [Time] in Blood by Thromboelastography 02/02/2025 12:28:50 12.1 Above high normal 2.5-8.3 (minutes) Final Clot strength in Blood by Thromboelastography 02/02/2025 12:28:50 1.9 0.5-3.7 (minutes) Final Clot angle in Blood by Thromboelastography 02/02/2025 12:28:50 61.7 46.8-78.4 (degrees) Final Maximum clot firmness [Length] in Blood by Thromboelastography 02/02/2025 12:28:50 58.7 50.6-72.5 (mm) Final Coagulation index in Blood by Thromboelastography 02/02/2025 12:28:50 -4.5 Below low normal -3.0-3.0 Final Clot Lysis [Length fraction] in Blood by Thromboelastography --30 minutes post maximum clot amplitude 02/02/2025 12:28:50 0.0 0.0-7.5 (%) Final This is an appended report. These results have been appended to a previously preliminary verified report. Performing Location LABORATORY [facility] [place] - [facility] [place][note 3] [address] [place] [address]
--- OUTSIDE RECORDS SUMMARY | 2025-02-13 00:38 | External Medical Summary ---
Author Name Unknown Address Unknown Organization K01:LABORATORY [address] [facility] [address] Laboratory Report Ordering Provider Test Date Status MARY STEELE 01/31/2025 16:31:22 Final Observation Date Value Abnormality Reference (Units) Status PARAPROTEIN NORMAL/ABNORMAL 16:31:22 Abnormal Abnormal Normal Final Protein, 24-hr Urine 16:31:22 236 (mg/dL) Final Urine Volume 16:31:22 1400 (mL) Final Protein, 24-hr Urine 16:31:22 3304 Above high normal <150 (mg/24 hours) Final Albumin/Protein.tota l in 24 hour Urine by Electrophoresis 16:31:22 2.9 (%) Final Globulin/Protein.tot al in 24 hour Urine by Electrophoresis 16:31:22 97.1 (%) Final Protein.monoclonal/P rotein.total in 24 hour Urine by Electrophoresis 16:31:22 5.7 (%) Final Protein Fractions [Interpretation] in 24 hour Urine by Electrophoresis Narrative 16:31:22 Abnormal. Paraprotein present. See urine immunofixation results. Final M PROTEIN QUANTIFICATION 16:31:22 188.3 <500.0 (mg/24 hours) Final Performing Location LABORATORY [place] [address] [facility] [address]
--- OUTSIDE RECORDS SUMMARY | 2025-02-13 00:38 | External Medical Summary ---
Author Name Unknown Address Unknown Organization K01:LABORATORY [facility] [place] - [address] [place] [address] [place] [address] Laboratory Report Ordering Provider Test Date Status BHUMIKAELIZABETH 02/01/2025 18:13:56 Final Observation Date Value Abnormality Reference (Units ) Status Staphylococcus aureus methicillin resistance SCCmec [Presence] in Nose by STEPHANIE with probe detection 02/01/2025 18:13:56 Negative Negative Final No Methicillin resistant Sta phylococcus aureus detected by PCR (amplified probe). Methicillin susceptible Stap hylococcus aureus DNA [Presence] in Specimen by STEPHANIE with probe detection 02/01/2025 18:13:56 Negative Negative Final No Staphylococcus aureus det ected by PCR (amplified probe). Performing Location LABORATORY [facility] [place] - [address] [place] [address]
--- OUTSIDE RECORDS SUMMARY | 2025-02-13 00:38 | External Medical Summary ---
Author Name Unknown Address Unknown Organization K01:LABORATORY [facility] [place] - [address] [place] [address] Laboratory Report Ordering Provider Test Date Status E,LIT 01/31/2025 16:06:00 Final Observation Date Value Abnormality Reference (Units ) Status Potassium, Whole Blood 01/31/2025 16:06:00 4.0 3.5-5.1 (mmol/L) Final Performing Location LABORATORY [facility] [place] - [address] [place] [address]
--- OUTSIDE RECORDS SUMMARY | 2025-02-13 00:38 | External Medical Summary ---
Author Name Unknown Address Unknown Organization K01:LABORATORY [facility] [place] - [address] [facility] [address] [facility] [address] Laboratory Report Ordering Provider Test Date Status E,LIT 01/31/2025 04:46:00 Final Observation Date Value Abnormality Reference (Units ) Status Haptoglobin 01/31/2025 04:46:00 <10 Below low normal 3 0-200 (mg/dL) Final Performing Location LABORATORY [facility] - [address] [facility] [address]
--- OUTSIDE RECORDS SUMMARY | 2025-02-13 00:38 | External Medical Summary ---
Author Name Unknown Address Unknown Organization K01:LABORATORY [facility] [place] - [facility] [address] [facility] [address] Laboratory Report Ordering Provider Test Date Status MARY STEELE 01/31/2025 16:31:22 Final Observation Date Value Abnormality Reference (Units) Status PARAPROTEIN NORMAL/ABNORMAL 01/31/2025 16:31:22 Abnormal Abnormal Normal Final Protein, 24-hr Urine 01/31/2025 16:31:22 236 (mg/dL) Final Immunofixation for 24 hour Urine Narrative 01/31/2025 16:31:22 Abnormal. Monoclonal intact immunoglobulins present. A monoclonal IgG kappa gammopathy is present. Monoclonal free kappa light chains present (Bence Castro protein). Final Performing Location LABORATORY [facility] [place] - [address] [facility] [address]
--- OUTSIDE RECORDS SUMMARY | 2025-02-13 00:38 | External Medical Summary ---
Author Name Unknown Address Unknown Organization K01:LABORATORY [facility] [place] - [address] [place] [address] Laboratory Report Ordering Provider Test Date Status E,LIT 02/02/2025 03:27:00 Final Observation Date Value Abnormality Reference (Units ) Status LDH 02/02/2025 03:27:00 >2500 Above high normal <= 250 (U/L) Final Results may be falsely eleva shyann due to hemolysis. Performing Location LABORATORY [facility] [place] - [address] [place] [address]
--- OUTSIDE RECORDS SUMMARY | 2025-02-13 00:38 | External Medical Summary ---
Author Name Unknown Address Unknown Organization K01:LABORATORY [facility] [place] - [facility] [address] [facility] [address] Laboratory Report Ordering Provider Test Date Status JEANNETTE DAVID 02/02/2025 03:27:00 Final Observation Date Value Abnormality Reference (Units ) Status BUN 02/02/2025 03:27:00 36 Above high normal 6-20 (mg/dL) Final Creatinine 02/02/2025 03:27:00 2.2 Above high normal 0.5-1.0 (mg/dL) Final Glomerular filtration rate/1.73 sq M.predicted [Volume Rate/Area] in Serum, Plasma or Blood by Creatinine-based formula (CKD-EPI) 02/02/2025 03:27:00 23 Below low normal >=60 (mL/min) Final eGFR is calculated based on the CKD-EPI 2020 equation. Sodium 02/02/2025 03:27:00 136 135-146 (m mol/L) Final Potassium 02/02/2025 03:27:00 3.4 Below low normal 3.5 -5.1 (mmol/L) Final Results may be falsely eleva shyann due to hemolysis. Cl 02/02/2025 03:27:00 102 98-107 (mm ol/L) Final CO2 02/02/2025 03:27:00 18 Below low normal 22- 32 (mmol/L) Final Anion gap 02/02/2025 03:27:00 16 Above high normal 7- 15 (mmol/L) Final Glucose 02/02/2025 03:27:00 100 70-120 (mg /dL) Final Calcium 02/02/2025 03:27:00 10.7 Above high normal 8. 4-10.2 (mg/dL) Final Performing Location LABORATORY [facility] [place] - [address] [place] [address]
--- OUTSIDE RECORDS SUMMARY | 2025-02-13 00:38 | External Medical Summary ---
Author Name Unknown Address Unknown Organization K01:LABORATORY [place] [facility] [place] - [address] [facility] [address] Laboratory Report Ordering Provider Test Date Status ISAAK DURAN 01/31/2025 04:46:00 Final Observation Date Value Abnormality Reference (Units ) Status BUN 01/31/2025 04:46:00 32 Above high normal 6-20 (mg/dL) Final Creatinine 01/31/2025 04:46:00 1.8 Above high normal 0.5-1.0 (mg/dL) Final Glomerular filtration rate/1.73 sq M.predicted [Volume Rate/Area] in Serum, Plasma or Blood by Creatinine-based formula (CKD-EPI) 01/31/2025 04:46:00 30 Below low normal >=60 (mL/min) Final eGFR is calculated based on the CKD-EPI 2020 equation. Sodium 01/31/2025 04:46:00 135 135-146 (m mol/L) Final Potassium 01/31/2025 04:46:00 Final Specimen too hemolyzed. Reor aris if needed. Cl 01/31/2025 04:46:00 101 98-107 (mm ol/L) Final CO2 01/31/2025 04:46:00 19 Below low normal 22- 32 (mmol/L) Final Anion gap 01/31/2025 04:46:00 15 7-15 (mmol /L) Final Glucose 01/31/2025 04:46:00 100 70-120 (mg /dL) Final Calcium 01/31/2025 04:46:00 9.9 8.4-10.2 ( mg/dL) Final Performing Location LABORATORY [facility] [facility] [place] - [address] [facility] [address]
--- OUTSIDE RECORDS SUMMARY | 2025-02-13 00:38 | External Medical Summary ---
Author Name Unknown Address Unknown Organization K01:LABORATORY [facility] [place] - [address] [facility] [place] [address] Laboratory Report Ordering Provider Test Date Status CLARA BAI 02/01/2025 21:50:29 Final Observation Date Value Abnormality Reference (Units ) Status Color of Urine by Auto 02/01/2025 21:50:29 Camila Abnormal Colorless, Light Yellow, Yellow, Dark Yellow Final Clarity, Urine 02/01/2025 21:50:29 Cloudy Abnormal Clear Final Glucose [Mass/volume] in Urine by Automated test strip 02/01/2025 21:50:29 Color of urine interferes with this test Abnormal Negative (mg/dL) Final Bilirubin.total [Presence] in Urine by Automated test strip 02/01/2025 21:50:29 Color of urine interferes with this test Abnormal Negative Final Ketones [Mass/volume] in Urine by Automated test strip 02/01/2025 21:50:29 Color of urine interferes with this test Abnormal Negative (mg/dL) Final Specific gravity, Urine 02/01/2025 21:50:29 1.017 1.003-1.030 Final Hemoglobin [Presence] in Urine by Automated test strip 02/01/2025 21:50:29 Color of urine interferes with this test Abnormal Negative Final pH, Urine 02/01/2025 21:50:29 Final Color of Urine Interferes wi th Test Protein [Mass/volume] in Urine by Automated test strip 02/01/2025 21:50:29 Color of urine interferes with this test Abnormal Negative (mg/dL) Final Urobilinogen [Mass/volume] in Urine by Automated test strip 02/01/2025 21:50:29 Color of urine interferes with this test Abnormal 0.2, 1.0 (mg/dL) Final Nitrite [Presence] in Urine by Automated test strip 02/01/2025 21:50:29 Color of urine interferes with this test Abnormal Negative Final Leukocyte esterase [Presence] in Urine by Automated test strip 02/01/2025 21:50:29 Color of urine interferes with this test Abnormal Negative Final RBC, Urine 02/01/2025 21:50:29 3-5 Abnormal 0-2 (/HPF) Final WBC, Urine 02/01/2025 21:50:29 20-29 Abnormal 0-2 (/HPF) Final Bacteria [#/area] in Urine sediment by Microscopy high power field 02/01/2025 21:50:29 101-150 Abnormal 0-25 (/HPF) Final Calcium oxalate crystals [#/area] in Urine sediment by Microscopy high power field 02/01/2025 21:50:29 1-4 Abnormal None (/HPF) Final Crystals.amorphous [#/area] in Urine sediment by Microscopy high power field 02/01/2025 21:50:29 Many Abnormal None (/HPF) Final Epithelial cells.renal [#/area] in Urine sediment by Microscopy high power field 02/01/2025 21:50:29 1-4 Abnormal None (/HPF) Final CULTURE, URINE - [facility] 02/01/2025 21:50:29 Final Quantitative urine culture t o be performed Performing Location LABORATORY [facility] [place] - [address] [facility] [address]
--- OUTSIDE RECORDS SUMMARY | 2025-02-13 00:38 | External Medical Summary ---
Author Name Unknown Address Unknown Organization K01:LABORATORY [facility] [place] - [facility] [address] [facility] [address] Laboratory Report Ordering Provider Test Date Status ISAAK DURAN 02/01/2025 08:02:00 Final Observation Date Value Abnormality Reference (Units ) Status WBC, Total 02/01/2025 08:02:00 7.75 4.00-10.80 (K/uL) Final RBC 02/01/2025 08:02:00 2.76 3.85-5.15 (M/uL) Final Hemoglobin 02/01/2025 08:02:00 8.9 Below low normal 12.0-15.3 (g/dL) Final HCT 02/01/2025 08:02:00 25.2 Below low normal 36.0-45.2 (%) Final MCV 02/01/2025 08:02:00 91.3 81.5-97.5 (fL) Final MCH 02/01/2025 08:02:00 32.2 27.0-34.0 (pg) Final MCHC 02/01/2025 08:02:00 35.3 32.0-36.0 (g/dL) Final RDW 02/01/2025 08:02:00 15.9 11.5-15.5 (%) Final Platelets 02/01/2025 08:02:00 74 Below low normal 140-400 (K/uL) Final MPV 02/01/2025 08:02:00 10.7 6.6-11.1 (fL) Final Nucleated erythrocytes/100 leukocytes [Ratio] in Blood by Automated count 02/01/2025 08:02:00 2 Above high normal <=0 (/100 WBCs) Final Performing Location LABORATORY [facility] [place] - [address] [place] [address]
--- OUTSIDE RECORDS SUMMARY | 2025-02-13 00:38 | External Medical Summary ---
Author Name Unknown Address Unknown Organization K01:[place] [facility] [place] [facility] [address] [facility] [address] Laboratory Report Ordering Provider Test Date Status ISAAK DURAN 01/31/2025 07:57:00 Final Observation Date Value Abnormality Reference (Units ) Status WBC, Total 01/31/2025 07:57:00 7.50 4.00-10.80 (K/uL) Final RBC 01/31/2025 07:57:00 2.53 3.85-5.15 (M/uL) Final Hemoglobin 01/31/2025 07:57:00 8.0 Below low normal 12.0-15.3 (g/dL) Final HCT 01/31/2025 07:57:00 23.1 Below low normal 36.0-45.2 (%) Final MCV 01/31/2025 07:57:00 91.3 81.5-97.5 (fL) Final MCH 01/31/2025 07:57:00 31.6 27.0-34.0 (pg) Final MCHC 01/31/2025 07:57:00 34.6 32.0-36.0 (g/dL) Final RDW 01/31/2025 07:57:00 14.7 11.5-15.5 (%) Final Platelets 01/31/2025 07:57:00 93 Below low normal 140-400 (K/uL) Final MPV 01/31/2025 07:57:00 12.9 6.6-11.1 (fL) Final Nucleated erythrocytes/100 leukocytes [Ratio] in Blood by Automated count 01/31/2025 07:57:00 1 Above high normal <=0 (/100 WBCs) Final Performing Location [place] [facility] [place] [address] [place] [address]
--- OUTSIDE RECORDS SUMMARY | 2025-02-13 00:38 | External Medical Summary ---
Author Name Unknown Address Unknown Organization K01:[place] [facility] [place] [address] [facility] [address] Laboratory Report Ordering Provider Test Date Status CLARA BAI 02/01/2025 21:50:29 Final Observation Date Value Abnormality Reference (Units) Status Bacteria identified in Specimen by Culture 02/01/2025 21:50:29 No significant growth Final Test: Culture, Urine, Quanti tative
Specimen Source: Urine, Clean Catch
Specimen Type: Urine
Specimen Date: 02/01/20252149
Result Date: 02/02/20251856
Result Status: Final result
Resulting Lab: [facility] [place]
[address]
[place] [address]

CULTURE

No significant growth

null Performing Location LAB[facility] [place] - [address] [facility] [address]
--- OUTSIDE RECORDS SUMMARY | 2025-02-13 00:38 | External Medical Summary ---
Author Name Unknown Address Unknown Organization K01:LABORATORY [facility] [place] - [facility] [address] [facility] [address] Laboratory Report Ordering Provider Test Date Status ISAAK DURAN 02/01/2025 15:52:00 Final Observation Date Value Abnormality Reference (Units ) Status WBC, Total 02/01/2025 15:52:00 8.40 4.00-10.80 (K/uL) Final RBC 02/01/2025 15:52:00 2.65 3.85-5.15 (M/uL) Final Hemoglobin 02/01/2025 15:52:00 8.4 Below low normal 12.0-15.3 (g/dL) Final HCT 02/01/2025 15:52:00 24.4 Below low normal 36.0-45.2 (%) Final MCV 02/01/2025 15:52:00 92.1 81.5-97.5 (fL) Final MCH 02/01/2025 15:52:00 31.7 27.0-34.0 (pg) Final MCHC 02/01/2025 15:52:00 34.4 32.0-36.0 (g/dL) Final RDW 02/01/2025 15:52:00 15.9 11.5-15.5 (%) Final Platelets 02/01/2025 15:52:00 78 Below low normal 140-400 (K/uL) Final MPV 02/01/2025 15:52:00 13.3 6.6-11.1 (fL) Final Nucleated erythrocytes/100 leukocytes [Ratio] in Blood by Automated count 02/01/2025 15:52:00 2 Above high normal <=0 (/100 WBCs) Final Performing Location LABORATORY [facility] [place] - [address] [place] [address]
--- OUTSIDE RECORDS SUMMARY | 2025-02-13 00:38 | External Medical Summary ---
Author Name Unknown Address Unknown Organization K01:LABORATORY [facility] [place] - [address] [place] [address] Laboratory Report Ordering Provider Test Date Status ELBERT WILKES 01/31/2025 16:31:22 Final Observation Date Value Abnormality Reference (Units ) Status Methicillin resistant Staphylococcus aureus (MRSA) DNA [Presence] in Nose by STEPHANIE with probe detection 01/31/2025 16:31:22 Negative Negative Final No Methicillin resistant Sta phylococcus aureus detected by PCR (amplified probe). Performing Location LABORATORY C - [address] [place] [address]
--- OUTSIDE RECORDS SUMMARY | 2025-02-13 00:38 | External Medical Summary ---
Author Name Unknown Address Unknown Organization K01:[place]ORY [facility] [place] [address] [place] [address] Laboratory Report Ordering Provider Test Date Status ELBERT WILKES 01/31/2025 04:46:00 Final Observation Date Value Abnormality Reference (Units ) Status Iron 01/31/2025 04:46:00 231 Above high normal 33 -151 (ug/dL) Final Results may be falsely eleva shyann due to hemolysis. Iron-binding capacity 01/31/2025 04:46:00 231 Below lo w normal 250-425 (ug/dL) Final Transferrin Sat % 01/31/2025 04:46:00 100 Above high n ormal 15-55 (%) Final Performing Location LABORATORY [facility] - [address] [place] [address]
--- OUTSIDE RECORDS SUMMARY | 2025-02-13 00:38 | External Medical Summary ---
Author Name Unknown Address Unknown Organization K01:LABORATORY [facility] [place] - [address] [facility] [address] Laboratory Report Ordering Provider Test Date Status ISAAK DURAN 01/31/2025 16:06:00 Final Observation Date Value Abnormality Reference (Units ) Status BUN 01/31/2025 16:06:00 33 Above high normal 6-20 (mg/dL) Final Creatinine 01/31/2025 16:06:00 1.9 Above high normal 0.5-1.0 (mg/dL) Final Glomerular filtration rate/1.73 sq M.predicted [Volume Rate/Area] in Serum, Plasma or Blood by Creatinine-based formula (CKD-EPI) 01/31/2025 16:06:00 28 Below low normal >=60 (mL/min) Final eGFR is calculated based on the CKD-EPI 2020 equation. Sodium 01/31/2025 16:06:00 135 135-146 (m mol/L) Final Potassium 01/31/2025 16:06:00 Final Specimen too hemolyzed. Reor aris if needed. Cl 01/31/2025 16:06:00 100 98-107 (mm ol/L) Final CO2 01/31/2025 16:06:00 20 Below low normal 22- 32 (mmol/L) Final Anion gap 01/31/2025 16:06:00 15 7-15 (mmol /L) Final Glucose 01/31/2025 16:06:00 109 70-120 (mg /dL) Final Calcium 01/31/2025 16:06:00 10.0 8.4-10.2 ( mg/dL) Final Performing Location LABORATORY [facility] [place] - [address] [facility] [address]
--- OUTSIDE RECORDS SUMMARY | 2025-02-13 00:38 | External Medical Summary ---
Author Name Unknown Address Unknown Organization K01:LABORATORY [facility] - [address] [facility] [address] Laboratory Report Ordering Provider Test Date Status E,LIT 02/01/2025 03:56:00 Final Observation Date Value Abnormality Reference (Units ) Status Haptoglobin 02/01/2025 03:56:00 <10 Below low normal 3 0-200 (mg/dL) Final Performing Location LABORATORY C - [address] [facility] [address]
--- OUTSIDE RECORDS SUMMARY | 2025-02-13 00:38 | External Medical Summary ---
Author Name Unknown Address Unknown Organization K01:LABORATORY [facility] [place] - [address] [place] [address] Laboratory Report Ordering Provider Test Date Status E,LIT 01/31/2025 04:46:00 Final Observation Date Value Abnormality Reference (Units ) Status LDH 01/31/2025 04:46:00 >2500 Above high normal <= 250 (U/L) Final Results may be falsely eleva shyann due to hemolysis. Performing Location LABORATORY [facility] [place] - [address] [place] [address]
--- OUTSIDE RECORDS SUMMARY | 2025-02-13 00:38 | External Medical Summary ---
Author Name Unknown Address Unknown Organization K01:LABORATORY [facility] [place] - [facility] [address] [facility] [address] Laboratory Report Ordering Provider Test Date Status JEANNETTE DAVID 02/01/2025 03:56:00 Final Observation Date Value Abnormality Reference (Units ) Status BUN 02/01/2025 03:56:00 34 Above high normal 6-20 (mg/dL) Final Creatinine 02/01/2025 03:56:00 2.0 Above high normal 0.5-1.0 (mg/dL) Final Glomerular filtration rate/1.73 sq M.predicted [Volume Rate/Area] in Serum, Plasma or Blood by Creatinine-based formula (CKD-EPI) 02/01/2025 03:56:00 27 Below low normal >=60 (mL/min) Final eGFR is calculated based on the CKD-EPI 2020 equation. Sodium 02/01/2025 03:56:00 135 135-146 (m mol/L) Final Potassium 02/01/2025 03:56:00 Final Specimen too hemolyzed. Reor aris if needed. Cl 02/01/2025 03:56:00 100 98-107 (mm ol/L) Final CO2 02/01/2025 03:56:00 20 Below low normal 22- 32 (mmol/L) Final Anion gap 02/01/2025 03:56:00 15 7-15 (mmol /L) Final Glucose 02/01/2025 03:56:00 107 70-120 (mg /dL) Final Calcium 02/01/2025 03:56:00 10.7 Above high normal 8. 4-10.2 (mg/dL) Final Performing Location LABORATORY [facility] [place] - [address] [facility] [address]
--- OUTSIDE RECORDS SUMMARY | 2025-02-13 00:38 | External Medical Summary ---
Author Name Unknown Address Unknown Organization K01:[place] [facility] [place] [facility] [address] [facility] [address] Laboratory Report Ordering Provider Test Date Status ISAAK DURAN 01/31/2025 23:49:00 Final Observation Date Value Abnormality Reference (Units ) Status WBC, Total 01/31/2025 23:49:00 8.09 4.00-10.80 (K/uL) Final RBC 01/31/2025 23:49:00 2.16 3.85-5.15 (M/uL) Final Hemoglobin 01/31/2025 23:49:00 6.9 Below low normal 12.0-15.3 (g/dL) Final HCT 01/31/2025 23:49:00 20.1 Below low normal 36.0-45.2 (%) Final MCV 01/31/2025 23:49:00 93.1 81.5-97.5 (fL) Final MCH 01/31/2025 23:49:00 31.9 27.0-34.0 (pg) Final MCHC 01/31/2025 23:49:00 34.3 32.0-36.0 (g/dL) Final RDW 01/31/2025 23:49:00 15.5 11.5-15.5 (%) Final Platelets 01/31/2025 23:49:00 88 Below low normal 140-400 (K/uL) Final MPV 01/31/2025 23:49:00 12.4 6.6-11.1 (fL) Final Nucleated erythrocytes/100 leukocytes [Ratio] in Blood by Automated count 01/31/2025 23:49:00 1 Above high normal <=0 (/100 WBCs) Final Performing Location [place] [facility] [place] [address] [place] [address]
--- OUTSIDE RECORDS SUMMARY | 2025-02-13 00:38 | External Medical Summary ---
Author Name Unknown Address Unknown Organization K01:LABORATORY [facility] [place] - [facility] [address] [facility] [address] Laboratory Report Ordering Provider Test Date Status ISAAK DURAN 01/31/2025 00:03:00 Final Observation Date Value Abnormality Reference (Units ) Status WBC, Total 01/31/2025 00:03:00 6.68 4.00-10.80 (K/uL) Final RBC 01/31/2025 00:03:00 2.02 3.85-5.15 (M/uL) Final Hemoglobin 01/31/2025 00:03:00 6.6 Below low normal 12.0-15.3 (g/dL) Final HCT 01/31/2025 00:03:00 19.3 Below low normal 36.0-45.2 (%) Final MCV 01/31/2025 00:03:00 95.5 81.5-97.5 (fL) Final MCH 01/31/2025 00:03:00 32.7 27.0-34.0 (pg) Final MCHC 01/31/2025 00:03:00 34.2 32.0-36.0 (g/dL) Final RDW 01/31/2025 00:03:00 14.6 11.5-15.5 (%) Final Platelets 01/31/2025 00:03:00 86 Below low normal 140-400 (K/uL) Final MPV 01/31/2025 00:03:00 12.8 6.6-11.1 (fL) Final Nucleated erythrocytes/100 leukocytes [Ratio] in Blood by Automated count 01/31/2025 00:03:00 1 Above high normal <=0 (/100 WBCs) Final Performing Location LABORATORY [facility] [place] - [address] [place] [address]
--- OUTSIDE RECORDS SUMMARY | 2025-02-13 00:38 | External Medical Summary ---
Author Name Unknown Address Unknown Organization K01:[place] [facility] [place] [facility] [address] [facility] [address] Laboratory Report Ordering Provider Test Date Status JEANNETTE DAVID 02/02/2025 03:26:00 Final Observation Date Value Abnormality Reference (Units ) Status WBC, Total 02/02/2025 03:26:00 9.09 4.00-10.80 (K/uL) Final RBC 02/02/2025 03:26:00 2.46 3.85-5.15 (M/uL) Final Hemoglobin 02/02/2025 03:26:00 7.9 Below low normal 12.0-15.3 (g/dL) Final HCT 02/02/2025 03:26:00 23.1 Below low normal 36.0-45.2 (%) Final MCV 02/02/2025 03:26:00 93.9 81.5-97.5 (fL) Final MCH 02/02/2025 03:26:00 32.1 27.0-34.0 (pg) Final MCHC 02/02/2025 03:26:00 34.2 32.0-36.0 (g/dL) Final RDW 02/02/2025 03:26:00 15.9 11.5-15.5 (%) Final Platelets 02/02/2025 03:26:00 92 Below low normal 140-400 (K/uL) Final MPV 02/02/2025 03:26:00 12.0 6.6-11.1 (fL) Final Nucleated erythrocytes/100 leukocytes [Ratio] in Blood by Automated count 02/02/2025 03:26:00 2 Above high normal <=0 (/100 WBCs) Final Performing Location [facility] [facility] [place] [address] [place] [address]
--- OUTSIDE RECORDS SUMMARY | 2025-02-13 00:38 | External Medical Summary ---
Author Name Unknown Address Unknown Organization K01:[place]ORY [facility] [place] - [facility] [place] [address] Laboratory Report Ordering Provider Test Date Status JEANNETTE DAVID 02/01/2025 03:56:00 Final Observation Date Value Abnormality Reference (Units ) Status Potassium, Whole Blood 02/01/2025 03:56:00 3.9 3.5-5.1 (mmol/L) Final Performing Location LABOR[facility]ORY [facility] [place] [address] [place] [address]
--- OUTSIDE RECORDS SUMMARY | 2025-02-13 00:38 | External Medical Summary | Summary of Care ---
Author Name Unknown Organization [facility] Address [address] [place] [address] Phone [phone] Care Team Providers Care Production Line Technician Name Role Phone Zuleima Garcia MD Primary Care Provider + Encounter Details Date Type Department Care Team (Late st Contact Info) Description 02/01/2025 Documentation [facility] [address] [place] [address] Lynn Portillo RN [address] [place] [address] Allergies Active Allergy Reactions Criticality Noted Date Comments Ezetimibe Low 11/28/2023 General malaise or feeling unwell Famotidine Diarrhea Low 09/13/2024 Prednisone Muscle pain Medium 07/15/2024 Pantoprazole Hives Medium 02/07/2022 GI upset Rosuvastatin Medium 11/28/2023 Muscle aches/pains, fatigue Statins Medium 11/01/2022 myalgia Torsemide Low 08/12/2024 GI symptoms documented as of this encounter (statuses as of 02/01/2025) Medications Ferrous Sulfate 325 (65 Fe) MG [...] as of this encounter (statuses as of 02/01/2025) Active Problems Problem Noted Date Diagnosed Date Nephrotic range proteinuria 01/30/2025 Thrombocytopenia 01/29/2025 Acquired hemolytic anemia 01/29/2025 Esophageal dysphagia 01/29/2025 Abnormal esophagram 01/29/2025 S/P transcatheter mitral valve replacement (TMVR ) 01/28/2025 Prosthetic mitral valve regurgitation 01/28/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 01/28/2025 Acute kidney injury (nontraumatic) 01/28/2025 Normocytic anemia 01/21/2025 Monoclonal gammopathy 01/20/2025 Congestive [...] as of this encounter (statuses as of 02/01/2025) Resolved Problems Problem Noted Date Diagnosed Date Resolved Date HTN, goal below 130/80 08/12/201808/16 documented as of this encounter (statuses as of 02/01/2025) Immunizations Name Administration Dates Next Due COVID-19 mRNA, LNP-s, No Pre serve, 2-Dose Series (Sense Platform) 11/04/2021,02/14/2021,01/24/2021 Covid-19, Mrna, Lnp-s, Pf, B ivalent, 30 Mcg, IM, 12 yrs and above (Sense Platform) 08/25/2022 Pneumococcal Conjugate Vacc, 13 Valent (Prevnar) [...] documented in this encounter Progress Notes * Lynn Portillo RN - 02/01/2025 8:36 AM EDT Hanh Roman was referred as a potential candidate for enrollment for [facility]. A review of this chart was completed and: Hanh meets criteria for [facility]. Jump to Initiation Referring care team was notified via : [employer] communication documented in this encounter Plan of Treatment Upcoming Encounters Date Type Department Care Team (Late st Contact Info) Description 04/01/2025 9:20 AM EDT Office Visit [facility] [address] [place] [address] Zuleima Garcia MD [address] [place] [address] 04/01/2025 10:30 AM EDT Laboratory Laboratory, [facility] [address] [facility] [place] [phone] ArredondoMario gallardo [facility] [address] [facility] [place] [address] 04/01/2025 11:00 AM EDT Office Visit Cardiology, [facility] [address] [facility] [place] [address] Daiana Anne CRNP [address] [facility] [place] [address] 04/01/2025 11:15 AM EDT Cardiac Studies Cardiac Studies, [facility] [address] [facility] [place] [address] 04/01/2025 2:00 PM EDT Cardiac Studies Cardiac Studies, [facility] [address] [facility] [place] [address] Scheduled Procedures Name Priority Associated Diagnoses Date/Ti me COLONOSCOPY FLEXIBLE PROXIMA L DIAGNOSTIC Recall Iron deficiency anemia due to chronic blood loss Health Maintenance Due Date Last Done Comments Fecal Occult Blood Test 1996 Sigmoidoscopy 1996 Cologuard 08/28/2021 08/28/2018 *BISPHONATE OR OTHER ACCEPTABLE MEDICATION NEEDED FOR OSTEOPOROSIS (REFER TO SMARTSET #1146) 07/25/2024 COVID-19 Vaccine ( season) 2024 10/13/2023, 08/25/2022, 04/13/2022, Additional history exists Depression Screening 09/17/2025 09/17/2024, 08/12/20 24 Mammogram 10/01/2025 10/01/2024, 07/27, 08/14/2023, Additional history exists GFR 02/01/2026 02/01/2025, 07/2025, 01/31/2025, Additional history exists DXA Scan 09/17/2026 09/17/2024 Albumin/Creatinine Ratio 01/29/2028 025, 11/03/2022, 06/21/2020 DTap/Tdap Vaccines (2 - Td or Tdap) 05/10/2028 05/10/2018 Lipid Panel 01/19/2030 01/19/2025, 04/1 , 08/24/2023, Additional history exists Colonoscopy 08/07/2031 08/07/2021, 08/07/2021 Colorectal Cancer Screening 08/07/2031 Pneumococcal Vaccine: 50+ Years Completed 05/10/2018, 05/10/2018 Zoster Vaccines Completed 06/09/2018, 05/10/2018 VITAMIN D LEVEL ONCE IN A LIFETIME-USE SMARTSET# [id number] Completed 01/12/2023, 06/03/2021, 08/16/2018 Influenza Vaccine (FLU [...] this encounter Medical Devices Implanted Type Area Customs Compliance Director Device Identifier Shelf Expiration Date Model / Serial / Lot Cath Thermodilution 6fr - [id number] Implanted:Qty: 1 on 01/18/2025 by Melinda Jin MD at [facility] [employer] DARY[employer] [id number] 06/24/2026 [id number] / / [id number] Cath Iabp Sensation 40cc Fiber - [id number] Implanted:Qty: 1 on 01/27/2025 by Nelson Mariee MD at [facility] [place] : MAQUET [id number] 06/05/2027 0684 -00-0 [id number] / / [id number] Catheter Angio Pigtail Curve 5fr X 110cm Without Sideholes Impulse - [id number] Implanted:Qty: 1 on 01/27/2025 by Nelson Mariee MD at [facility] [employer] : INTRV CARD [id number] 08/07/2026 [id number] / / [id number] Valve Transcath Resilia 29mm - [id number] Implanted:Qty: 1 on 01/27/2025 by Nelson Mariee MD at [facility] [employer] [id number] 09/17/2027 [id number] / / [id number] documented as of this encounter Advance Directives * Full Code (Latest Code Status on File) Date Activated Date Inactivated Comments 01/27/2025 4:51 PM This order refl ects the patients wishes and were consensually agreed [...] Discussed due to patient's condition Care Teams Production Line Technician Relationship Specialty Start Date End Date Zuleima Garcia MD [address] [facility] [place] [address] PCP - General Internal Medicine 08/28/24 documented as of this encounter
--- OUTSIDE RECORDS SUMMARY | 2025-02-13 00:38 | External Medical Summary ---
Author Name Unknown Address Unknown Organization [id number]:LABORATORY [facility] [place] - [address] [place] [address] Laboratory Report Ordering Provider Test Date Status ISAAK DURAN 01/31/2025 16:31:22 Final Normal: <150 mg/24 hours<br/ >High: 150-500 mg/24 hours
Very High: >500 mg/24 hours
Nephrotic: >3000 mg/24 hours Observation Date Value Abnormality Reference (Units ) Status Protein, 24-hr Urine 01/31/2025 16:31:22 236 (mg/dL) Final Urine Volume 01/31/2025 16:31:22 1400 (mL) Final Protein, 24-hr Urine 01/31/2025 16:31:22 3304 Above high normal <150 (mg/24 hours) Final Performing Location LABORATORY [facility] [place] - [address] [place] [address]
--- OUTSIDE RECORDS SUMMARY | 2025-02-13 00:38 | External Medical Summary ---
Author Name Unknown Address Unknown Organization [id number]:[place] [place] [address] [place] [address] Laboratory Report Ordering Provider Test Date Status JEANNETTE DAVID 02/02/2025 03:27:00 Final Observation Date Value Abnormality Reference (Units ) Status Potassium, Whole Blood 02/02/2025 03:27:00 3.6 3.5-5.1 (mmol/L) Final Performing Location [facility] [place] [address] [place] [address]
--- OUTSIDE RECORDS SUMMARY | 2025-02-13 00:38 | External Medical Summary ---
Author Name Unknown Address Unknown Organization [id number]:LABORATORY [facility] [place] - [address] [place] [address] Laboratory Report Ordering Provider Test Date Status E,LIT 02/01/2025 03:56:00 Final Observation Date Value Abnormality Reference (Units ) Status LDH 02/01/2025 03:56:00 >2500 Above high normal <= 250 (U/L) Final Results may be falsely eleva shyann due to hemolysis. Performing Location LABORATORY [facility] [place] - [address] [place] [address]
--- OUTSIDE RECORDS SUMMARY | 2025-02-13 00:38 | External Medical Summary ---
Author Name Unknown Address Unknown Organization [id number]:[facility]ORY [facility] [place] [address] [facility] [address] Laboratory Report Ordering Provider Test Date Status AWILDA ROBERSON 02/02/2025 03:26:00 Final Observation Date Value Abnormality Reference (Units ) Status SYNC LEUKOCYTES IN BLOOD BY AUTOMATED COUNT 02/02/2025 03:26:00 9.09 4.00-10.80 (K/uL) Final Segs 02/02/2025 03:26:00 66.1 40.0-75.0 (%) Final Lymphs % 02/02/2025 03:26:00 14.7 Below low normal 18.0-42.0 (%) Final Monos 02/02/2025 03:26:00 14.3 Above high normal 1.0-11.0 (%) Final Eosinophils 02/02/2025 03:26:00 2.9 0.0-6.0 (%) Final Basos 02/02/2025 03:26:00 0.6 0.0-2.0 (%) Final Immature Granulocyte, Percent 02/02/2025 03:26:00 1.4 0.0-2.0 (%) Final Absolute Segs 02/02/2025 03:26:00 6.00 1.80-7.70 (K/uL) Final Lymphs, absolute 02/02/2025 03:26:00 1.33 1.00-4.80 (K/ul) Final Monos, Abs 02/02/2025 03:26:00 1.30 Above high normal 0.00-1.10 (K/uL) Final Eos, Abs 02/02/2025 03:26:00 0.26 0.00-0.70 (K/uL) Final Basos, Abs 02/02/2025 03:26:00 0.05 0.00-0.20 (K/uL) Final Immature Granulocytes, Number 02/02/2025 03:26:00 0.13 0.00-0.20 (K/uL) Final Performing Location [facility] [place] [facility] [place] [address]
--- OUTSIDE RECORDS SUMMARY | 2025-02-13 00:38 | External Medical Summary ---
Author Name Unknown Address Unknown Organization K01:[facility]ORY [facility] [place] - [address] [facility] [address] Laboratory Report Ordering Provider Test Date Status E,LIT 02/02/2025 03:27:00 Final Observation Date Value Abnormality Reference (Units ) Status Haptoglobin 02/02/2025 03:27:00 <10 Below low normal 3 0-200 (mg/dL) Final Performing Location LABORATORY C - [address] [facility] [address]
--- OUTSIDE RECORDS SUMMARY | 2025-02-13 00:38 | External Medical Summary ---
Author Name Unknown Address Unknown Organization K01:LABORATORY [facility] [place] - [address] [facility] [address] Laboratory Report Ordering Provider Test Date Status ISAAK DURAN 01/31/2025 16:06:00 Final Observation Date Value Abnormality Reference (Units ) Status WBC, Total 01/31/2025 16:06:00 7.53 4.00-10.80 (K/uL) Final RBC 01/31/2025 16:06:00 2.36 3.85-5.15 (M/uL) Final Hemoglobin 01/31/2025 16:06:00 7.6 Below low normal 12.0-15.3 (g/dL) Final HCT 01/31/2025 16:06:00 21.8 Below low normal 36.0-45.2 (%) Final MCV 01/31/2025 16:06:00 92.4 81.5-97.5 (fL) Final MCH 01/31/2025 16:06:00 32.2 27.0-34.0 (pg) Final MCHC 01/31/2025 16:06:00 34.9 32.0-36.0 (g/dL) Final RDW 01/31/2025 16:06:00 15.7 11.5-15.5 (%) Final Platelets 01/31/2025 16:06:00 85 Below low normal 140-400 (K/uL) Final MPV 01/31/2025 16:06:00 12.6 6.6-11.1 (fL) Final Nucleated erythrocytes/100 leukocytes [Ratio] in Blood by Automated count 01/31/2025 16:06:00 2 Above high normal <=0 (/100 WBCs) Final Performing Location LABORATORY [facility] [place] - [address] [place] [address]
--- OUTSIDE RECORDS SUMMARY | 2025-02-13 00:39 | External Medical Summary ---
Author Name Unknown Address Unknown Organization : Laboratory Report Ordering Provider Test Date Status RANI MADRIGAL 01/29/2025 12:32:00 Final Observation Date Value Abnormality Reference (Units ) Status Mejia 13 Activity 01/29/2025 12:32:00 0.65 Below low no rmal 0.68-1.63 (IU/mL) Final Activity levels below 0.10 I U/mL are seen in acquired
and hereditary thrombotic thrombocytopenic purpura
(TTP). Not all patients with TTP will exhibit low
levels of NYKVRP47 activity with this assay, i.e.,
post bone marrow transplantation, drug-induced TTP,
and mutations of OJOETD48 at the CUB domain.
Recent plasma exchange or immunosuppressive therapy
may raise the observed activity levels. Mild decreases
in BCPAHE49 activity are seen in a wide variety of
conditions including metastatic cancer, neonates,
serious infections and cirrhosis of the liver.
For more information on this test, go to
http://education.[employer].walkby/faq/UCL301

Test Performed at:
[employer] [facility]
[address]
[place], [place]
Reed Ardon M.D., Ph.D.,Director of Laboratories Performing Location
--- OUTSIDE RECORDS SUMMARY | 2025-02-13 00:39 | External Medical Summary | Summary of Care ---
Author Name Unknown Organization [facility] Address [address] [place] [address] Phone [phone] Care Team Providers Care Events Intern Name Role Phone Zuleima Garcia MD Primary Care Provider + Encounter Details Date Type Department Care Team (Late st Contact Info) Description 01/27/2025 CardioDiagnostic Study Cardiology [facility] [address] [place] [address] Nelson Mariee MD [address] [place] [address] EKG Report Allergies Active Allergy Reactions Criticality Noted Date Comments Ezetimibe Low 11/28/2023 General malaise or feeling unwell Famotidine Diarrhea Low 09/13/2024 Prednisone Muscle pain Medium 07/15/2024 Pantoprazole Hives Medium 02/07/2022 GI upset Rosuvastatin Medium 11/28/2023 Muscle aches/pains, fatigue Statins Medium 11/01/2022 myalgia Torsemide Low 08/12/2024 GI symptoms documented as of this encounter (statuses as of 01/29/2025) Medications Ferrous Sulfate 325 (65 Fe) MG [...] Tablet 3 09/07/2024 11:51 AM EDT 08/12/20 Suspended Metoprolol Succinate ER 50 MG Oral [...] as of this encounter (statuses as of 01/29/2025) Active Problems Problem Noted Date Diagnosed Date Thrombocytopenia 01/29/2025 Acquired hemolytic anemia 01/29/2025 S/P transcatheter mitral valve replacement (TMVR ) 01/28/2025 Prosthetic mitral valve regurgitation 01/28/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 01/28/2025 Acute kidney injury (nontraumatic) 01/28/2025 Normocytic anemia 01/21/2025 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 Answer Date of Assessment Author No 01/18/2025 8:15 PM Sushila Anderson RN * Are you blind or do you have serious difficulty seeing, even when wearing glasses? Answer Date of Assessment Author No 01/18/2025 8:15 PM Sushila Anderson RN * Do you have serious difficulty walking or climbing stairs? (5 years old or older) Answer Date of Assessment Author Yes 01/18/2025 8:15 PM Sushila Anderson RN * Do you have difficulty dressing or bathing? (5 years old or older) Answer Date of Assessment Author No 01/18/2025 8:15 PM Sushila Anderson RN * Because of a physical, mental, or emotional condition, do you have difficulty doing errands alone such as visiting a doctors office or shopping? (15 years old or older) Answer Date of Assessment Author Yes 01/18/2025 8:15 PM Sushila Anderson RN documented as of this encounter Mental Status * Because of a physical, mental, or emotional condition, do you have serious difficulty concentrating, remembering, or making decisions? (5 years old or older) Answer Entry Date Author No 01/18/2025 8:15 PM Sushila Anderson RN documented in this encounter Procedure Notes * Jonathan Salazar, - 01/27/2025 9:55 PM ESTAssociated Order(s): EKG REPORT REASON FOR STUDY: routine CONCLUSIONS: Sinus rhythm with sinus arrhythmia with 1st degree AV block with occasional Premature ventricular complexes Marked ST abnormality, possible inferior subendocardial injury When compared with ECG of 27-Jan-2025 17:47, (unconfirmed) Premature ventricular complexes are now Present The axis Shifted right Ventricular Rate: 69 Atrial Rate: 69 [place] Interval: 222 QRS Duration: 90 QT/QTc: 444/475 ms P-R-T [place]: 92 : 57 : -74 degrees documented in this encounter Plan of Treatment Upcoming Encounters Date Type Department Care Team (Late st Contact Info) Description 02/08/2025 2:00 PM EDT Office Visit Cardiology, [facility] [address] [place] [address] Daiana Anne CRNP [address] [place] [address] 04/01/2025 9:20 AM EDT Office Visit General Internal Medicine [facility] [address] [facility] [place] [address] Zuleima Garcia MD [address] [facility] [address] [place] [address] 04/01/2025 10:30 AM EDT Laboratory Laboratory, [facility] [address] [facility] [place] [phone] [facility] [address] [facility] [place] [address] 04/01/2025 11:00 AM EDT Office Visit Cardiology, [facility] [address] [facility] [place] [address] Daiana Anne CRNP [address] [place] [address] 04/01/2025 11:15 AM EDT Cardiac Studies Cardiac Studies, [facility] [address] [place] [address] 04/01/2025 2:00 PM EDT Cardiac Studies Cardiac Studies, [facility] [address] [place] [address] Scheduled Procedures Name Priority Associated Diagnoses Date/Ti [...] 10/01/2025 10/01/2024, 07/27, 08/14/2023, Additional history exists Albumin/Creatinine Ratio 11/03/2025 11/03/2022, 05/26 GFR 01/29/2026 01/29/2025, 0304/2025, 01/28/2025, Additional history exists DXA Scan 09/17/2026 09/17/2024 DTap/Tdap Vaccines (2 - Td or Tdap) 05/10/2028 05/10/2018 Lipid Panel 01/19/2030 01/19/2025, 04, 08/24/2023, Additional history exists Colonoscopy 08/07/2031 08/07/2021, 08/07/2021 Colorectal Cancer Screening 08/07/2031 Pneumococcal Vaccine: 50+ Years Completed 05/10/2018, 05/10/2018 Zoster Vaccines Completed 06/09/2018, 05/10/2018 VITAMIN D LEVEL ONCE IN A LIFETIME-USE SMARTSET# [id number] Completed 01/12/2023, 06/03/2021, 08/16/2018 Influenza Vaccine (FLU [...] this encounter Medical Devices Implanted Type Area Client Support Administrator Device Identifier Shelf Expiration Date Model / Serial / Lot Cath Thermodilution 6fr - [id number] Implanted:Qty: 1 on 01/18/2025 by Melinda Jin MD at [facility] [place] [employer] DARYL [id number] 06/24/2026 [id number] / / [id number] Cath Iabp Sensation 40cc Fiber - [id number] Implanted:Qty: 1 on 01/27/2025 by Nelson Mariee MD at [facility] [employer] : MAQUET [id number] 06/05/2027 0684 -00-0 [id number] / / [id number] Catheter Angio Pigtail Curve 5fr X 110cm Without Sideholes Impulse - [id number] Implanted:Qty: 1 on 01/27/2025 by Nelson Mariee MD at [facility] [place] [employer] : INTRV CARD [id number] 08/07/2026 [id number] / / [id number] Valve Transcath Resilia 29mm - [id number] Implanted:Qty: 1 on 01/27/2025 by Nelson Mariee MD at [facility] [place] [employer] [id number] 09/17/2027 [id number] / / [id number] documented as of this encounter Procedures Procedure Name Priority Date/Time Associated Diagnosis Comments EKG REPORT 01/27/2025 9:55 PM EST documented in this encounter Results * EKG REPORT (01/27/2025 9:55 PM EST) 01/27/2025 9:55 PM EST Narrative Procedure Note Jonathan Salazar, DO - 01/27/2025 9:55 PM EST REASON FOR STUDY: routine CONCLUSIONS: Sinus rhythm with sinus arrhythmia with 1st degree AV block withoccasional Premature ventricular complexes Marked ST abnormality, possible inferior subendocardial injury When compared with ECG of 27-Jan-2025 17:47, (unconfirmed) Premature ventricular complexes are now Present The axis Shifted right Ventricular Rate: 69 Atrial Rate: 69 [place] Interval: 222 QRS Duration: 90 QT/QTc: 444/475 ms P-R-T [place]: 92 : 57 : -74 degrees us Nelson Mariee MD EKG Final [...] Discussed due to patient's condition Care Teams Events Intern Relationship Specialty Start Date End Date Zuleima Garcia MD [address] [place] [address] PCP - General Internal Medicine 08/28/24 documented as of this encounter
--- OUTSIDE RECORDS SUMMARY | 2025-02-13 00:39 | External Medical Summary ---
Author Name Unknown Address Unknown Organization K01:[facility]ORY [facility] [place] [address] [place] [address] Laboratory Report Ordering Provider Test Date Status MARY STEELE 01/30/2025 11:53:00 Final Observation Date Value Abnormality Reference (Units ) Status DNA double strand Ab [Presence] in Serum 01/30/2025 11:53:00 Negative Negative Final DNA double strand Ab [Titer] in Serum by Immunofluorescence (IF) Zoey collins 01/30/2025 11:53:00 <1:10 <1:10 (Titer) Final Performing Location LAB[facility]ORY [facility] [place] [address] [place] [address]
--- OUTSIDE RECORDS SUMMARY | 2025-02-13 00:39 | External Medical Summary ---
Author Name Unknown Address Unknown Organization K01:[facility]ORY [facility] [place] [address] [facility] [address] Laboratory Report Ordering Provider Test Date Status E,LIT 01/30/2025 04:53:00 Final Observation Date Value Abnormality Reference (Units ) Status Haptoglobin 01/30/2025 04:53:00 <10 Below low normal 3 0-200 (mg/dL) Final Performing Location LABORATORY [facility] - [address] [facility] [address]
--- OUTSIDE RECORDS SUMMARY | 2025-02-13 00:39 | External Medical Summary ---
Author Name Unknown Address Unknown Organization K01:LABORATORY [facility] [place] - [address] [place] [address] Laboratory Report Ordering Provider Test Date Status MARY STEELE 01/30/2025 04:53:00 Final Observation Date Value Abnormality Reference (Units ) Status Complement C3c [Mass/volume] in Serum or Plasma 01/30/2025 04:53:00 89 Below low normal 90-180 (mg/dL) Final Performing Location LABORATORY [facility] [place] - [address] [place] [address]
--- OUTSIDE RECORDS SUMMARY | 2025-02-13 00:39 | External Medical Summary ---
Author Name Unknown Address Unknown Organization K01:LABORATORY [facility] - [address] [facility] [address] Laboratory Report Ordering Provider Test Date Status RANI MADRIGAL 01/30/2025 04:53:00 Final Observation Date Value Abnormality Reference (Units ) Status Magnesium 01/30/2025 04:53:00 2.2 1.5-2.6 (m g/dL) Final Performing Location LABORATORY [facility] - [address] [facility] [address]
--- OUTSIDE RECORDS SUMMARY | 2025-02-13 00:39 | External Medical Summary ---
Author Name Unknown Address Unknown Organization K01:LABORATORY [facility] [place] [facility] - [address] [place] [address] Laboratory Report Ordering Provider Test Date Status ROGERISAAK 01/31/2025 00:03:00 Final Observation Date Value Abnormality Reference (Units ) Status ABO 01/31/2025 00:03:00 O Final RH 01/31/2025 00:03:00 Positive Final RED BLOOD CELL ANTIBODY SCREEN 01/31/2025 00:03:00 Negative Final SPECIMEN EXPIRATION DATE 01/31/2025 00:03:00 02/03/2025 23:59 Final Performing Location [facility] [place] [facility] - [address] [place] [address]
--- OUTSIDE RECORDS SUMMARY | 2025-02-13 00:39 | External Medical Summary ---
Author Name Unknown Address Unknown Organization K01:[place] [facility] [place] [address] [place] [address] Laboratory Report Ordering Provider Test Date Status MARY STEELE 01/30/2025 11:53:00 Final Observation Date Value Abnormality Reference (Units) Status Neutrophil cytoplasmic Ab [Presence] in Serum by Immunofluorescence 11:53:00 Negative Negative Final Neutrophil cytoplasmic Ab [Presence] in Serum by Immunofluorescence 11:53:00 p-ANCA suspicious, see confirmatory myeloperoxidase antibody. Abnormal Negative Final Performing Location LABORATORY C - [address] [place] [address]
--- OUTSIDE RECORDS SUMMARY | 2025-02-13 00:39 | External Medical Summary ---
Author Name Unknown Address Unknown Organization : Laboratory Report Ordering Provider Test Date Status AWILDA ROBERSON 01/29/2025 23:01:16 Final Observation Date Value Abnormality Reference (Units ) Status Glucose Point of Care 01/29/2025 23:01:16 107 70-120 (mg/dL) Final Performing Location
--- OUTSIDE RECORDS SUMMARY | 2025-02-13 00:39 | External Medical Summary ---
Author Name Unknown Address Unknown Organization K01:[place] [facility] [place] [address] [facility] [address] Laboratory Report Ordering Provider Test Date Status ISAAK DURAN 01/30/2025 16:25:00 Final Observation Date Value Abnormality Reference (Units ) Status WBC, Total 01/30/2025 16:25:00 6.91 4.00-10.80 (K/uL) Final RBC 01/30/2025 16:25:00 2.30 3.85-5.15 (M/uL) Final Hemoglobin 01/30/2025 16:25:00 7.5 Below low normal 12.0-15.3 (g/dL) Final HCT 01/30/2025 16:25:00 22.1 Below low normal 36.0-45.2 (%) Final MCV 01/30/2025 16:25:00 96.1 81.5-97.5 (fL) Final MCH 01/30/2025 16:25:00 32.6 27.0-34.0 (pg) Final MCHC 01/30/2025 16:25:00 33.9 32.0-36.0 (g/dL) Final RDW 01/30/2025 16:25:00 14.6 11.5-15.5 (%) Final Platelets 01/30/2025 16:25:00 94 Below low normal 140-400 (K/uL) Final MPV 01/30/2025 16:25:00 12.6 6.6-11.1 (fL) Final Nucleated erythrocytes/100 leukocytes [Ratio] in Blood by Automated count 01/30/2025 16:25:00 1 Above high normal <=0 (/100 WBCs) Final Performing Location [facility] [place] [address] [place] [address]
--- OUTSIDE RECORDS SUMMARY | 2025-02-13 00:39 | External Medical Summary ---
Author Name Unknown Address Unknown Organization K01:[place] [facility] [place] [address] [place] [address] Laboratory Report Ordering Provider Test Date Status E,LIT 01/30/2025 04:53:00 Final Observation Date Value Abnormality Reference (Units ) Status LDH 01/30/2025 04:53:00 2442 Above high normal <= 250 (U/L) Final Results may be falsely eleva shyann due to hemolysis. Performing Location [facility] [place] [address] [place] [address]
--- OUTSIDE RECORDS SUMMARY | 2025-02-13 00:39 | External Medical Summary ---
Author Name Unknown Address Unknown Organization K01:LABORATORY [facility] [place] - [address] [facility] [address] Laboratory Report Ordering Provider Test Date Status ISAAK DUARN 01/30/2025 04:53:00 Final Observation Date Value Abnormality Reference (Units ) Status WBC, Total 01/30/2025 04:53:00 6.15 4.00-10.80 (K/uL) Final RBC 01/30/2025 04:53:00 2.14 3.85-5.15 (M/uL) Final Hemoglobin 01/30/2025 04:53:00 6.9 Below low normal 12.0-15.3 (g/dL) Final HCT 01/30/2025 04:53:00 20.1 Below low normal 36.0-45.2 (%) Final MCV 01/30/2025 04:53:00 93.9 81.5-97.5 (fL) Final MCH 01/30/2025 04:53:00 32.2 27.0-34.0 (pg) Final MCHC 01/30/2025 04:53:00 34.3 32.0-36.0 (g/dL) Final RDW 01/30/2025 04:53:00 14.6 11.5-15.5 (%) Final Platelets 01/30/2025 04:53:00 99 Below low normal 140-400 (K/uL) Final MPV 01/30/2025 04:53:00 12.6 6.6-11.1 (fL) Final Nucleated erythrocytes/100 leukocytes [Ratio] in Blood by Automated count 01/30/2025 04:53:00 1 Above high normal <=0 (/100 WBCs) Final Performing Location LABORATORY [facility] [place] - [address] [place] [address]
--- OUTSIDE RECORDS SUMMARY | 2025-02-13 00:39 | External Medical Summary ---
Author Name Unknown Address Unknown Organization K01:LABORATORY [facility] - [address] [place] [address] Laboratory Report Ordering Provider Test Date Status MARY STEELE 01/30/2025 04:53:00 Final Observation Date Value Abnormality Reference (Units ) Status C4 01/30/2025 04:53:00 31 10-40 (mg/ dL) Final Performing Location LABORATORY [facility] - [address] [place] [address]
--- OUTSIDE RECORDS SUMMARY | 2025-02-13 00:39 | External Medical Summary ---
Author Name Unknown Address Unknown Organization K01:LABORATORY [facility] [place] - [facility] [address] [facility] [address] Laboratory Report Ordering Provider Test Date Status ISAAK DURAN 01/30/2025 04:53:00 Final Observation Date Value Abnormality Reference (Units ) Status BUN 01/30/2025 04:53:00 30 Above high normal 6-20 (mg/dL) Final Creatinine 01/30/2025 04:53:00 1.7 Above high normal 0.5-1.0 (mg/dL) Final Glomerular filtration rate/1.73 sq M.predicted [Volume Rate/Area] in Serum, Plasma or Blood by Creatinine-based formula (CKD-EPI) 01/30/2025 04:53:00 31 Below low normal >=60 (mL/min) Final eGFR is calculated based on the CKD-EPI 2020 equation. Sodium 01/30/2025 04:53:00 138 135-146 (m mol/L) Final Potassium 01/30/2025 04:53:00 Final Specimen too hemolyzed. Reor aris if needed. Cl 01/30/2025 04:53:00 101 98-107 (mm ol/L) Final CO2 01/30/2025 04:53:00 22 22-32 (mmo l/L) Final Anion gap 01/30/2025 04:53:00 15 7-15 (mmol /L) Final Glucose 01/30/2025 04:53:00 94 70-120 (mg /dL) Final Calcium 01/30/2025 04:53:00 10.0 8.4-10.2 ( mg/dL) Final Performing Location LABORATORY [facility] [place] - [address] [facility] [address]
--- OUTSIDE RECORDS SUMMARY | 2025-02-13 00:39 | External Medical Summary ---
Author Name Unknown Address Unknown Organization K01:LABORATORY [place] - [address] [place] [address] Laboratory Report Ordering Provider Test Date Status E,LIT 01/30/2025 16:25:00 Final Observation Date Value Abnormality Reference (Units ) Status Potassium, Whole Blood 01/30/2025 16:25:00 3.8 3.5-5.1 (mmol/L) Final Performing Location LABORATORY [place] - [address] [place] [address]
--- OUTSIDE RECORDS SUMMARY | 2025-02-13 00:39 | External Medical Summary ---
Author Name Unknown Address Unknown Organization K01:[facility]ORY [facility] [place] - [address] [place] [address] Laboratory Report Ordering Provider Test Date Status ROGERGEN SilviaALEXIS 01/29/2025 06:43:16 Final Observation Date Value Abnormality Reference (Units ) Status Potassium, Whole Blood 01/29/2025 06:43:16 3.8 3.5-5.1 (mmol/L) Final Performing Location [facility] [place] - [address] [place] [address]
--- OUTSIDE RECORDS SUMMARY | 2025-02-13 00:39 | External Medical Summary ---
Author Name Unknown Address Unknown Organization [id number]:[facility] [place] [address] [place] [address] Laboratory Report Ordering Provider Test Date Status RANI MADRIGAL 01/30/2025 04:53:00 Final Observation Date Value Abnormality Reference (Units ) Status Potassium, Whole Blood 01/30/2025 04:53:00 3.3 Below low normal 3.5-5.1 (mmol/L) Final Performing Location [facility] [place] [address] [place] [address]
--- OUTSIDE RECORDS SUMMARY | 2025-02-13 00:39 | External Medical Summary ---
Author Name Unknown Address Unknown Organization [id number]:[facility]ORY [facility] [place] [address] [facility] [address] Laboratory Report Ordering Provider Test Date Status ISAAK DURAN 01/30/2025 16:25:00 Final Observation Date Value Abnormality Reference (Units ) Status BUN 01/30/2025 16:25:00 31 Above high normal 6-20 (mg/dL) Final Creatinine 01/30/2025 16:25:00 1.8 Above high normal 0.5-1.0 (mg/dL) Final Glomerular filtration rate/1.73 sq M.predicted [Volume Rate/Area] in Serum, Plasma or Blood by Creatinine-based formula (CKD-EPI) 01/30/2025 16:25:00 30 Below low normal >=60 (mL/min) Final eGFR is calculated based on the CKD-EPI 2020 equation. Sodium 01/30/2025 16:25:00 136 135-146 (m mol/L) Final Potassium 01/30/2025 16:25:00 Final Specimen too hemolyzed. Reor aris if needed. Cl 01/30/2025 16:25:00 100 98-107 (mm ol/L) Final CO2 01/30/2025 16:25:00 20 Below low normal 22- 32 (mmol/L) Final Anion gap 01/30/2025 16:25:00 16 Above high normal 7- 15 (mmol/L) Final Glucose 01/30/2025 16:25:00 103 70-120 (mg /dL) Final Calcium 01/30/2025 16:25:00 10.2 8.4-10.2 ( mg/dL) Final Performing Location [facility]ORY [facility] [place] [address] [facility] [address]
--- OUTSIDE RECORDS SUMMARY | 2025-02-13 00:39 | External Medical Summary ---
Author Name Unknown Address Unknown Organization K01:LABORATORY [facility] [place] - [address] [place] [address] Laboratory Report Ordering Provider Test Date Status MARY STEELE 01/30/2025 14:02:10 Correction Normal: <150 mg/24 hours<br/ >High: 150-500 mg/24 hours
Very High: >500 mg/24 hours
Nephrotic: >3000 mg/24 hours Observation Date Value Abnormality Reference (Units ) Status Protein, 24-hr Urine 01/30/2025 14:02:10 Correction Canceled per physician
C hanged result: Previously reported as 212 mg/dL on 01/30/2025 at 1457 EST. Urine Volume 01/30/2025 14:02:10 100 (mL) Correction Canceled per physician Protein, 24-hr Urine 01/30/2025 14:02:10 Correction Changed result: Previously r eported as 212 mg/24 hours on 01/30/2025 at 1457 EST. Performing Location LABORATORY [facility] [place] - [address] [place] [address]
--- OUTSIDE RECORDS SUMMARY | 2025-02-13 00:39 | External Medical Summary ---
Author Name Unknown Address Unknown Organization K01:LABORATORY [facility] - [address] [place] [address] Laboratory Report Ordering Provider Test Date Status MARY STEELE 01/30/2025 11:53:00 Final Observation Date Value Abnormality Reference (Units ) Status Hep A IgM 01/30/2025 11:53:00 Negative Negative Final Hep B Core IgM 01/30/2025 11:53:00 Negative Negat namrata Final Hep B surface Ag 01/30/2025 11:53:00 Negative Neg ative Final Hep C Ab 01/30/2025 11:53:00 Negative Negative Final Performing Location LABORATORY [facility] - [address] [place] [address]
--- OUTSIDE RECORDS SUMMARY | 2025-02-13 00:39 | External Medical Summary ---
Author Name Unknown Address Unknown Organization K01:LABORATORY [address] [facility] [address] Laboratory Report Ordering Provider Test Date Status ME IVETTEHR 01/30/2025 11:53:00 Final Observation Date Value Abnormality Reference (Units ) Status Nuclear IgG Ab [Ratio] in Serum by Immunoassay 01/30/2025 11:53:00 Negative Negative Final DNA double strand Ab [Presence] in Serum 01/30/2025 11:53:00 Negative Negative Final DOUBLE STRANDED DNA VALUE - [facility] 01/30/2025 11:53:00 1.2 <20 (IU/mL) Final Extractable nuclear Ab [Presence] in Serum 01/30/2025 11:53:00 Negative Negative Final Nuclear IgG Ab [Ratio] in Serum by Immunoassay 01/30/2025 11:53:00 0.2 <0.7 (Ratio) Final Screening is based on detect ion of the following antibodies: dsDNA, U1-CONTROLS ENGINEER (RNP70, A, C), SS-A/Ro, SS-B / La, Ange-1, Scl-70, Centromere B proteins and Sm proteins. In conjunction with clinical findings, this can aid in the diagnosis of systemic lupus erythematosous (SLE), mixed connective tissue disease (MCTD), Sjogren's syndrome, scleroderma and polymyositis/dermatomyositis.
However, a negative result does not rule out systemic rheumatic or other autoimmune disease. If clinically suspected, further evaluation and testing may be necessary. Please consult with Rheumatology Department.
Methodology: Fluorescent Enzyme Immunoassay. Performing Location LABORATORY [address] [facility] [address]
--- OUTSIDE RECORDS SUMMARY | 2025-02-13 00:39 | External Medical Summary ---
Author Name Unknown Address Unknown Organization K01:[facility] [place] [address] [place] [address] Laboratory Report Ordering Provider Test Date Status RANI MADRIGAL 01/29/2025 12:32:00 Final Warfarin Therapy
INR: 2 .0-3.0 conventional anticoagulation
INR: 2.5- 3.5 high intensity anticoagulation Observation Date Value Abnormality Reference (Units ) Status PT 01/29/2025 12:32:00 15.6 Above high normal 11 .6-15.2 (seconds) Final INR 01/29/2025 12:32:00 1.2 0.8-1.2 Final Performing Location [facility] [place] [address] [place] [address]
--- OUTSIDE RECORDS SUMMARY | 2025-02-13 00:39 | External Medical Summary ---
Author Name Unknown Address Unknown Organization K01:LAB[facility]ATORY [facility] [place] - [address] [place] [address] Laboratory Report Ordering Provider Test Date Status MARY STEELE 01/30/2025 11:53:00 Final Observation Date Value Abnormality Reference (Units ) Status Myeloperoxidase Ab [Presence] in Serum by Immunoassay 01/30/2025 11:53:00 Negative Negative Final Myeloperoxidase Ab [Units/volume] in Serum by Immunoassay 01/30/2025 11:53:00 <0.2 <3.5 (U/mL) Final Atypical ANCA antibodies can appear positive for C-ANCA or P-ANCA but test negative for specific myeloperoxidase or proteinase 3 antibodies. Performing Location LABORATORY [facility] [place] - [address] [place] [address]
--- OUTSIDE RECORDS SUMMARY | 2025-02-13 00:39 | External Medical Summary ---
Author Name Unknown Address Unknown Organization : Laboratory Report Ordering Provider Test Date Status IVETTE,MARY 01/30/2025 11:53:00 Final Observation Date Value Abnormality Reference (Units ) Status PLA2R AB, LAY 01/30/2025 11:53:00 <4 (RU/ mL) Final Reference Range:
<14: NEGATIVE
14-19: BORDERLINE
>19: POSITIVE PLA2R AB, IFA 01/30/2025 11:53:00 NEGATIVE NEGATI VE Final Test performed by [facility]
[address],
[place] [address]

Retail Salesworker: Leslie Cesar MD,PHD,JAMEY
Test Rep[facility] by [facility],
[facility],
[address] [place], [place]
Reed Ardon M.D., Ph.D., Director of Laboratories
, [place] [id number] Performing Location
--- OUTSIDE RECORDS SUMMARY | 2025-02-13 00:39 | External Medical Summary ---
Author Name Unknown Address Unknown Organization : Laboratory Report Ordering Provider Test Date Status AWILDA ROBERSON 01/29/2025 18:09:02 Final Observation Date Value Abnormality Reference (Units ) Status Glucose Point of Care 01/29/2025 18:09:02 109 70-120 (mg/dL) Final Performing Location
--- OUTSIDE RECORDS SUMMARY | 2025-02-13 00:39 | External Medical Summary | Summary of Care ---
Author Name Unknown Organization [facility] Address [address] [place] [address] Phone [phone] Care Team Providers Care Vice President Of Talent Management Name Role Phone Zuleima Garcia MD Primary [...] WHEN PERFORMED Nelson Mariee MD [address] [place] [address] Phone: tel: fax: CRS Waiting [facility], Cardiac Recovery Suite Waiting Unit, [address] [place] [address] Phone: tel: Referral ID Status Reason Start Date Expiration Date Visits Re quested Visits Authorized [id number] Encounter Details Date Type Department Care Team (Latest Contact Info) Description 01/28/2025 7:55 AM EST - 01/28/2025 11:59 PM EST Hospital Encounter Cardiac Studies [facility], [place] [address] [place] [address] Discharge Disposition: Home - Self Care Allergies [...] Problems Problem Noted Date Diagnosed Date S/P transcatheter mitral valve replacement (TMVR ) [...] mRNA, LNP-s, No Pre serve, 2-Dose Series ([employer]) 11/04/2021,02/14/2021,01/24/2021 Covid-19, Mrna, Lnp-s, Pf, B ivalent, [...] 02/08/2025 2:00 PM EDT Office Visit Cardiology, [facility] [address] [place] [address] Daiana Anne CRNP [address] [place] [address] 04/01/2025 9:20 AM EDT Office Visit General Internal Medicine [facility] [address] [facility] [place] [address] Zuleima Garcia MD [address] [facility] [place] [address] 04/01/2025 10:30 AM EDT Laboratory Laboratory, [facility] [address] [facility] [place] [id number] Mario Arredondo [facility] [address] [place] [address] 04/01/2025 11:00 AM EDT Office Visit Cardiology, [facility] [address] [place] [address] Daiana Anne CRNP [address] [place] [address] 04/01/2025 11:15 AM EDT Cardiac Studies Cardiac Studies, [facility] [address] [place] [address] 04/01/2025 2:00 PM EDT [facility] [address] [place] [address] Scheduled Procedures Name Priority Associated Diagnoses Date/Ti [...] 10/01/2024, 07/27, 08/14/2023, Additional history exists GFR 01/29/2026 01/29/2025, 03/0 04/2025, 01/28/2025, Additional history exists DXA Scan 09/17/2026 09/17/2024 Albumin/Creatinine Ratio 01/29/2028 025, 11/03/2022, 06/21/2020 DTap/Tdap Vaccines (2 - Td or Tdap) 05/10/2028 05/10/2018 Lipid Panel 01/19/2030 01/19/2025, 04/1 , 08/24/2023, Additional history exists Colonoscopy 08/07/2031 08/07/2021, 08/07/2021 Colorectal Cancer Screening 08/07/2031 Pneumococcal Vaccine: 50+ Years Completed 05/10/2018, 05/10/2018 Zoster Vaccines Completed 06/09/2018, 05/10/2018 VITAMIN D LEVEL ONCE IN A LIFETIME-USE SMARTSET# [id number] Completed 01/12/2023, 06/03/2021, 08/16/2018 Influenza Vaccine (FLU [...] this encounter Medical Devices Implanted Type Area Social Work Msw Device Identifier Shelf Expiration Date Model / Serial / Lot Cath Thermodilution 6fr - [id number] Implanted:Qty: 1 on 01/18/2025 by Melinda Jin MD at [facility]ARD[facility] LABS [facility] [employer] DARYL [id number] 06/24/2026 [id number] / / [id number] Cath Iabp Sensation 40cc Fiber - [id number] Implanted:Qty: 1 on 01/27/2025 by Nelson Mariee MD at [facility] [employer] : MAQUET [id number] 06/05/2027 0684 -00-0 [id number] / / [id number] Catheter Angio Pigtail Curve 5fr X 110cm Without Sideholes Impulse - [id number] Implanted:Qty: 1 on 01/27/2025 by Nelson Mariee MD at [facility] [employer] : INTRV CARD [id number] 08/07/2026 [id number] / / [id number] Valve Transcath Resilia 29mm - [id number] Implanted:Qty: 1 on 01/27/2025 by Nelson Mariee MD at [facility]S [facility] [employer] [id number] 09/17/2027 [id number] / / [id number] documented as of this encounter Procedures Procedure Name Priority Date/Time Associated Diagnosis Comments ECHO, COMPLETE (2D), TRANS-THORACIC Routine 01/28/2025 1:43 PM EST S/P TAVR (transcatheter aortic valve replacement) documented in this encounter Results * ECHO, COMPLETE (2D), TRANS-THORACIC (01/28/2025 1:43 PM EST) LEFT VENTRICULAR EJECTION FRACTION 45 % [facility] 01/28/2025 12:4 7 PM EST Aldair Winchester MD ECHOCARDIOLOGY Final Result [facility] documented in this encounter Advance Directives [...] Discussed due to patient's condition Care Teams Vice President Of Talent Management Relationship Specialty Start Date End Date Zuleima Garcia MD [address] [place] [address] [place] [address] PCP - General Internal Medicine 08/28/24 documented as of this encounter
--- OUTSIDE RECORDS SUMMARY | 2025-02-13 00:39 | External Medical Summary ---
Author Name Unknown Address Unknown Organization : Laboratory Report Ordering Provider Test Date Status MAYR STEELE 01/30/2025 11:53:00 Final Observation Date Value Abnormality Reference (Units ) Status Basement membrane IgG Ab [Units/volume] in Serum by Immunoassay 01/30/2025 11:53:00 <1.0 <1.0 (AI) Final Value Interpretation
<1 .0 AI: No Antibody Detected
>or=1.0 AI: Antibody Detected

Test Performed at:
[facility]
[address] [facility] [place] [address]
Reed Ardon M.D., Ph.D.,Director of Laboratories Performing Location
--- OUTSIDE RECORDS SUMMARY | 2025-02-13 00:40 | External Medical Summary ---
Author Name Unknown Address Unknown Organization K01:LABORATORY [facility] [place] - [address] [place] [address] Laboratory Report Ordering Provider Test Date Status RANI MADRIGAL 01/28/2025 13:01:12 Final Observation Date Value Abnormality Reference (Units ) Status LDH 01/28/2025 13:01:12 1222 Above high normal <= 250 (U/L) Final Results may be falsely eleva shyann due to hemolysis. Performing Location LABORATORY [facility] [place] - [address] [place] [address]
--- OUTSIDE RECORDS SUMMARY | 2025-02-13 00:40 | External Medical Summary ---
Author Name Unknown Address Unknown Organization K01:LABORATORY [facility] - [address] [facility] [address] [facility] [address] Laboratory Report Ordering Provider Test Date Status RANI MADRIGAL 01/28/2025 10:20:55 Final Observation Date Value Abnormality Reference (Units ) Status Haptoglobin 01/28/2025 10:20:55 <10 Below low normal 3 0-200 (mg/dL) Final Performing Location LABORATORY [facility] - [address] [facility] [address]
--- OUTSIDE RECORDS SUMMARY | 2025-02-13 00:40 | External Medical Summary ---
Author Name Unknown Address Unknown Organization K01:[facility]ORY [facility] [place] [address] [facility] [address] Laboratory Report Ordering Provider Test Date Status RANI MADRIGAL 01/28/2025 11:45:44 Final Observation Date Value Abnormality Reference (Units ) Status Color of Urine by Auto 01/28/2025 11:45:44 Other Abnormal Colorless, Light Yellow, Yellow, Dark Yellow Final Black Clarity, Urine 01/28/2025 11:45:44 Slightly Cloudy Abnormal Clear Final Glucose [Mass/volume] in Urine by Automated test strip 01/28/2025 11:45:44 Color of urine interferes with this test Abnormal Negative (mg/dL) Final Bilirubin.total [Presence] in Urine by Automated test strip 01/28/2025 11:45:44 Color of urine interferes with this test Abnormal Negative Final Ketones [Mass/volume] in Urine by Automated test strip 01/28/2025 11:45:44 Color of urine interferes with this test Abnormal Negative (mg/dL) Final Specific gravity, Urine 01/28/2025 11:45:44 1.026 1.003-1.030 Final Hemoglobin [Presence] in Urine by Automated test strip 01/28/2025 11:45:44 Color of urine interferes with this test Abnormal Negative Final pH, Urine 01/28/2025 11:45:44 Final Color of the urine interfere s with test. Protein [Mass/volume] in Urine by Automated test strip 01/28/2025 11:45:44 Color of urine interferes with this test Abnormal Negative (mg/dL) Final Urobilinogen [Mass/volume] in Urine by Automated test strip 01/28/2025 11:45:44 Color of urine interferes with this test Abnormal 0.2, 1.0 (mg/dL) Final Nitrite [Presence] in Urine by Automated test strip 01/28/2025 11:45:44 Color of urine interferes with this test Abnormal Negative Final Leukocyte esterase [Presence] in Urine by Automated test strip 01/28/2025 11:45:44 Color of urine interferes with this test Abnormal Negative Final RBC, Urine 01/28/2025 11:45:44 0-2 0-2 (/HPF) Final WBC, Urine 01/28/2025 11:45:44 0-2 0-2 (/HPF) Final Bacteria [#/area] in Urine sediment by Microscopy high power field 01/28/2025 11:45:44 0-25 0-25 (/HPF) Final Crystals.amorphous [#/area] in Urine sediment by Microscopy high power field 01/28/2025 11:45:44 Many Abnormal None (/HPF) Final Performing Location LAB[facility]ORY [facility] [place] [facility] [address] [facility] [address]
--- OUTSIDE RECORDS SUMMARY | 2025-02-13 00:40 | External Medical Summary ---
Author Name Unknown Address Unknown Organization K01:LABORATORY [facility] [place] - [address] [place] [address] Laboratory Report Ordering Provider Test Date Status RANI MADRIGAL 01/28/2025 10:20:55 Final Result may be falsely elevat ed due to hemolysis.
Observation Date Value Abnormality Reference (Units ) Status Potassium 01/28/2025 10:20:55 4.3 3.5-5.1 (m mol/L) Final Performing Location LABORATORY [facility] [place] - [address] [place] [address]
--- OUTSIDE RECORDS SUMMARY | 2025-02-13 00:40 | External Medical Summary ---
Author Name Unknown Address Unknown Organization K01:[facility] [place] [address] [place] [address] Laboratory Report Ordering Provider Test Date Status RANI MADRIGAL 01/28/2025 13:01:12 Final Observation Date Value Abnormality Reference (Units ) Status DIRECT JACKIE 01/28/2025 13:01:12 Negative Final Performing Location [facility] - [address] [place] [address]
--- OUTSIDE RECORDS SUMMARY | 2025-02-13 00:40 | External Medical Summary | Summary of Care ---
Author Name Unknown Organization [facility] Address [address] [place] [address] Phone [phone] Care Team Providers Care Software Engineering Manager Name Role Phone Zuleima Garcia MD Primary Care Provider + Reason for Visit * Reason Onset Date Comments Appointment 01/21/2025 Encounter Details Date Type Department Care Team (Late st Contact Info) Description 01/21/2025 Telephone Hematology/Oncology Treatment, [place] [address] [place] [address] Edin Garcia MD 200 [facility] [place] [address] Appointment Allergies Active Allergy Reactions Criticality Noted Date Comments Ezetimibe Low 11/28/2023 General malaise or feeling unwell Famotidine Diarrhea Low 09/13/2024 Prednisone Muscle pain Medium 07/15/2024 Pantoprazole Hives Medium 02/07/2022 GI upset Rosuvastatin Medium 11/28/2023 Muscle aches/pains, fatigue Statins Medium 11/01/2022 myalgia Torsemide Low 08/12/2024 GI symptoms documented as of this encounter (statuses as of 01/28/2025) Medications Ferrous Sulfate 325 (65 Fe) MG [...] heart failure managing provider. 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 Congestive [...] as of this encounter (statuses as of 01/28/2025) Resolved Problems Problem Noted Date Diagnosed Date Resolved Date HTN, goal below 130/80 08/12/201808/16 documented as of this encounter (statuses as of 01/28/2025) Immunizations Name Administration Dates Next Due COVID-19 mRNA, LNP-s, No Pre serve, 2-Dose Series (Veduca) 11/04/2021,02/14/2021,01/24/2021 Covid-19, Mrna, Lnp-s, Pf, B ivalent, 30 Mcg, IM, 12 yrs and above (Veduca) 08/25/2022 Pneumococcal Conjugate Vacc, 13 Valent (Prevnar) [...] Sushila Anderson RN documented in this encounter Miscellaneous Notes * Telephone Encounter - Jenny Tiwari RN - 01/28/2025 7:25 AM EST Patient admitted again yesterday for cardiac procedure. IM: please route to p [phone] once patient is discharged and referral has been placed, if patient wishes to have this done. * Telephone Encounter - Zuleima Garcia MD - 01/25/2025 2:27 PM EST Patient was advised few months back to be seen by barrel assembly inspector for possibility of multiple myeloma but at that time patient and her daughter decided not to pursue any further workup or treatment. Please check with the patient and family if they are agreeable to be seen by barrel assembly inspector. We would certainly recommend she see barrel assembly inspector as there are good treatment options. If she agrees then we can put a referral in the chart. Thanks * Telephone Encounter - Ekaterina Best OSA - 01/21/2025 10:35 AM EST Unable to schedule per the hard stop as it stats I need an active request for a new patient referral. Please advise. I did check and there is no finalized referral either. * Telephone Encounter - Jenny Tiwari RN - 01/21/2025 10:15 AM EST Received discharge order for patient to be seen by hematology. Per chart review, patient seen by Dr Rincon while admitted. 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 Concern for multiple myeloma, but patient hesitant to pursue BMBx or further work up for this until cardiac issues have resolved. Recommended outpatient follow up with hematology to discuss further. Per discharge order: "Department (Single Entry) -> Hematology Appt Needed Within: (Specify # of Days, Weeks, Months) -> 1 Mo" Scheduling: please contact patient to schedule new patient appt with MD in a few weeks/ 1 month. Thanks! documented in this encounter Plan of Treatment Upcoming Encounters Date Type Department Care Team (Late st Contact Info) Description 02/08/2025 2:00 PM EDT Office Visit Cardiology, [facility] [address] [place] [address] Daiana Anne CRNP [address] [place] [address] 04/01/2025 9:20 AM EDT Office Visit General Internal Medicine [facility] 200 [facility] [place] [address] Zuleima Garcia MD 200 [facility] [place] [address] 04/01/2025 10:30 AM EDT Laboratory Laboratory, [facility] [address] [place] [phone] [facility] 132 [facility] [place] [address] 04/01/2025 11:00 AM EDT Office Visit Cardiology, [facility] [address] [place] [address] Daiana Anne CRNP [address] [place] [address] 04/01/2025 11:15 AM EDT Cardiac Studies Cardiac Studies, [facility] 132 [facility] [place] [address] 04/01/2025 2:00 PM EDT Cardiac Studies Cardiac Studies, [facility] 132 [facility] [place] [address] Scheduled Procedures Name Priority Associated Diagnoses Date/Ti [...] exists Albumin/Creatinine Ratio 11/03/2025 11/03/2022, 05/26 GFR 01/28/2026 01/28/2025, 03/0 03/2025, 01/27/2025, Additional history exists DXA Scan 09/17/2026 09/17/2024 DTap/Tdap Vaccines (2 - Td or Tdap) 05/10/2028 05/10/2018 Lipid Panel 01/19/2030 01/19/2025, 04/1 , 08/24/2023, Additional history exists Colonoscopy 08/07/2031 08/07/2021, 08/07/2021 Colorectal Cancer Screening 08/07/2031 Pneumococcal Vaccine: 50+ Years Completed 05/10/2018, 05/10/2018 Zoster Vaccines Completed 06/09/2018, 05/10/2018 VITAMIN D LEVEL ONCE IN A LIFETIME-USE SMARTSET# [id number] Completed 01/12/2023, 06/03/2021, 08/16/2018 Influenza Vaccine (FLU [...] this encounter Medical Devices Implanted Type Area Control Panel Tester Device Identifier Shelf Expiration Date Model / Serial / Lot Cath Thermodilution 6fr - [id number] Implanted:Qty: 1 on 01/18/2025 by Melinda Jin MD at [facility] [employer] [id number] 06/24/2026 [id number] / / [id number] Cath Iabp Sensation 40cc Fiber - [id number] Implanted:Qty: 1 on 01/27/2025 by Nelson Mariee MD at [facility] [employer] : MAQUET [id number] 06/05/2027 0684 -00-0 568-01U / / [id number] Catheter Angio Pigtail Curve 5fr X 110cm Without Sideholes Impulse - [id number] Implanted:Qty: 1 on 01/27/2025 by Nelson Mariee MD at [facility] [employer] : INTRV CARD [id number] 08/07/2026 [id number] / / [id number] Valve Transcath Resilia 29mm - [id number] Implanted:Qty: 1 on 01/27/2025 by Nelson Mariee MD at [facility] [employer] [id number] 09/17/2027 [id number] / / [id number] documented as of this encounter Advance Directives [...] Discussed due to patient's condition Care Teams Software Engineering Manager Relationship Specialty Start Date End Date Zuleima Garcia MD 200 [facility] [place], [place] [address] PCP - General Internal Medicine 08/28/24 documented as of this encounter
--- OUTSIDE RECORDS SUMMARY | 2025-02-13 00:40 | External Medical Summary | Summary of Care ---
Author Name Unknown Organization [facility] Address [address] [place] [address] Phone [phone] Care Team Providers Care Electronics Maintenance Technician Name Role Phone Zuleima Garcia MD Primary Care Provider + Reason for Visit * Reason Onset Date Comments Appointment 01/21/2025 Encounter Details Date Type Department Care Team (Late st Contact Info) Description 01/21/2025 Telephone Hematology/Oncology Treatment, [place] [address] [place] [address] Edin Garcia MD 200 [facility] [place] [address] Appointment Allergies Active Allergy Reactions Criticality Noted [...] mRNA, LNP-s, No Pre serve, 2-Dose Series (Nayatek) 11/04/2021,02/14/2021,01/24/2021 Covid-19, Mrna, Lnp-s, Pf, B ivalent, 30 Mcg, IM, 12 yrs and above (Nayatek) 08/25/2022 Pneumococcal Conjugate Vacc, 13 Valent (Prevnar) [...] cardiac procedure. IM: [place] route to p 43629 once patient is discharged and referral has been placed, if patient wishes to have this done. * Telephone Encounter - Zuleima Garcia MD - 01/25/2025 2:27 PM EST Patient was advised few months back to be seen by button and buckle maker for possibility of multiple myeloma but at that time patient and her daughter decided not to pursue any further workup or treatment. Please check with the patient and family if they are agreeable to be seen by button and buckle maker. We would certainly recommend she see button and buckle maker as there are good treatment options. If [...] 02/08/2025 2:00 PM EDT Office Visit Cardiology, [facility] [address] [place] [address] Daiana Anne CRNP [address] [place] [address] 04/01/2025 9:20 AM EDT Office Visit General Internal Medicine [facility] 200 [facility] [place] [address] Zuleima Garcia MD 200 [facility] [place] [address] 04/01/2025 10:30 AM EDT Laboratory Laboratory, [facility] [address] [place] [phone] [facility] 132 [facility] [place] [address] 04/01/2025 11:00 AM EDT Office Visit Cardiology, [facility] [address] [place] [address] Daiana Anne CRNP [address] [place] [address] 04/01/2025 11:15 AM EDT Cardiac Studies Cardiac Studies, [facility] 132 [facility] [place] [address] 04/01/2025 2:00 PM EDT Cardiac Studies Cardiac Studies, [facility] 132 [facility] [place] [address] Scheduled Procedures Name Priority Associated Diagnoses Date/Ti [...] D LEVEL ONCE IN A LIFETIME-USE SMARTSET# [id number] Completed 01/12/2023, 06/03/2021, 08/16/2018 Influenza Vaccine (FLU [...] this encounter Medical Devices Implanted Type Area Adult Literacy Teacher Device Identifier Shelf Expiration Date Model / Serial / Lot Cath Thermodilution 6fr - [id number] Implanted:Qty: 1 on 01/18/2025 by Melinda Jin MD at [facility] [employer] [id number] 06/24/2026 [id number] / / [id number] Cath Iabp Sensation 40cc Fiber - [id number] Implanted:Qty: 1 on 01/27/2025 by Nelson Mariee MD at [facility] [employer] : MAQUET [id number] 06/05/2027 0684 -00-0 568-01U / / [id number] Catheter Angio Pigtail Curve 5fr X 110cm Without Sideholes Impulse - [id number] Implanted:Qty: 1 on 01/27/2025 by Nelson Mariee MD at [facility] [employer] : INTRV CARD [id number] 08/07/2026 [id number] / / [id number] Valve Transcath Resilia 29mm - [id number] Implanted:Qty: 1 on 01/27/2025 by Nelson Mariee MD at [facility] [employer] [id number] 09/17/2027 [id number] / / [id number] documented as of this encounter Advance Directives [...] Discussed due to patient's condition Care Teams Electronics Maintenance Technician Relationship Specialty Start Date End Date Zuleima Garcia MD 200 [facility] [place], [place] [address] PCP - General Internal Medicine 08/28/24 documented as of this encounter
--- OUTSIDE RECORDS SUMMARY | 2025-02-13 00:40 | External Medical Summary | Summary of Care ---
Author Name Unknown Organization [facility] Address [address] [place] [address] Phone [phone] Care Team Providers Care Bushing Press Operator Name Role Phone Zuleima Garcia MD Primary Care Provider + Reason for Visit * Reason Onset Date Comments Appointment 01/21/2025 Encounter Details Date Type Department Care Team (Late st Contact Info) Description 01/21/2025 Telephone Hematology/Oncology Treatment, [place] [address] [place] [address] Edin Garcia MD 200 [facility] [place] [address] Appointment Allergies Active Allergy Reactions Criticality Noted [...] mRNA, LNP-s, No Pre serve, 2-Dose Series (PlotWatt) 11/04/2021,02/14/2021,01/24/2021 Covid-19, Mrna, Lnp-s, Pf, B ivalent, 30 Mcg, IM, 12 yrs and above (PlotWatt) 08/25/2022 Pneumococcal Conjugate Vacc, 13 Valent (Prevnar) [...] Tiwari RN - 01/28/2025 7:25 AM EST IM: has patient been contacted about this? No note in chart. * Telephone Encounter - Zuleima Garcia MD - 01/25/2025 2:27 PM EST Patient was advised few months back to be seen by technical project coordinator for possibility of multiple myeloma but at that time patient and her daughter decided not to pursue any further workup or treatment. Please check with the patient and family if they are agreeable to be seen by technical project coordinator. We would certainly recommend she see technical project coordinator as there are good treatment options. If [...] 02/08/2025 2:00 PM EDT Office Visit Cardiology, [facility] [address] [place] [address] Daiana Anne CRNP [address] [place] [address] 04/01/2025 9:20 AM EDT Office Visit General Internal Medicine [facility] 200 [facility] [place] [address] Zuleima Garcia MD 200 [facility] [place] [address] 04/01/2025 10:30 AM EDT Laboratory Laboratory, [facility] 132 [facility] [place] [phone] [facility] 132 [facility] [place] [address] 04/01/2025 11:00 AM EDT Office Visit Cardiology, [facility] 132 [facility] [place] [address] Daiana Anne CRNP [address] [facility] [address] 04/01/2025 11:15 AM EDT Cardiac Studies Cardiac Studies, [facility] 132 [facility] [place] [address] 04/01/2025 2:00 PM EDT Cardiac Studies Cardiac Studies, [facility] 132 [facility] [place] [address] Scheduled Procedures Name Priority Associated Diagnoses Date/Ti [...] D LEVEL ONCE IN A LIFETIME-USE SMARTSET# [id number] Completed 01/12/2023, 06/03/2021, 08/16/2018 Influenza Vaccine (FLU [...] this encounter Medical Devices Implanted Type Area Volunteer Fire Fighter Device Identifier Shelf Expiration Date Model / Serial / Lot Cath Thermodilution 6fr - [id number] Implanted:Qty: 1 on 01/18/2025 by Melinda Jin [place] [facility] [employer] [id number] 06/24/2026 [id number] / / [id number] Cath Iabp Sensation 40cc Fiber - [id number] Implanted:Qty: 1 on 01/27/2025 by Nelson Mariee MD [place] [facility] [employer] : ISELA [id number] 06/05/2027 0684 -00-0 568-01U / / [id number] Catheter Angio Pigtail Curve 5fr X 110cm Without Sideholes Impulse - [id number] Implanted:Qty: 1 on 01/27/2025 by Nelson Mariee MD [place] [facility] [employer] : INTRV CARD [id number] 08/07/2026 [id number] / / [id number] Valve Transcath Resilia 29mm - [id number] Implanted:Qty: 1 on 01/27/2025 by Nelson Mariee MD at [facility] [employer] [id number] 09/17/2027 [id number] / / [id number] documented as of this encounter Advance Directives [...] Discussed due to patient's condition Care Teams Bushing Press Operator Relationship Specialty Start Date End Date Zuleima Garcia MD 200 [facility] [place] [address] PCP - General Internal Medicine 08/28/24 documented as of this encounter
--- OUTSIDE RECORDS SUMMARY | 2025-02-13 00:40 | External Medical Summary ---
Author Name Unknown Address Unknown Organization K01:LABORATORY C - [address] [facility] [address] Laboratory Report Ordering Provider Test Date Status RANI MADRIGAL 01/29/2025 03:47:00 Final Observation Date Value Abnormality Reference (Units ) Status Magnesium 01/29/2025 03:47:00 2.3 1.5-2.6 (m g/dL) Final Performing Location [facility] - [address] [facility] [address]
--- OUTSIDE RECORDS SUMMARY | 2025-02-13 00:40 | External Medical Summary ---
Author Name Unknown Address Unknown Organization [id number]:LABORATORY [facility] - [address] [place] [address] Laboratory Report Ordering Provider Test Date Status SUYAPA OSPINA 01/29/2025 03:47:00 Final Observation Date Value Abnormality Reference (Units ) Status CLINICIAN SLIDE READY? 01/29/2025 03:47:00 Yes Final CLINICIAN SLIDE REQUEST PICKUP LOCATION 01/29/2025 03:47:00 [facility] Main Laboratory - [place] Final Performing Location LABORATORY [facility] - [address] [place] [address]
--- OUTSIDE RECORDS SUMMARY | 2025-02-13 00:40 | External Medical Summary | Summary of Care ---
Author Name Unknown Organization [facility] Address [address] [place] [address] Phone [phone] Care Team Providers Care Hand Rounder Name Role Phone Zuleima Garcia MD Primary [...] WHEN PERFORMED [place] Mariee MD [address] [place] [address] Phone: tel: fax: CRS Waiting [facility], Cardiac Recovery Suite Waiting Unit, [address] [place] [address] Phone: tel: Referral ID Status Reason Start Date Expiration Date Visits Re quested Visits Authorized [id number] Encounter Details Date Type Department Care Team (Latest Contact Info) Description 01/27/2025 3:45 PM EST - 01/27/2025 11:59 PM EST Hospital Encounter Cardiac Studies [facility] [place] [address] [place] [address] Discharge Disposition: Home - Self Care Allergies [...] worsening leg swelling 210 Tablet 3 11/19/20 Suspended Digoxin 125 MCG Oral Tablet (Lanoxin) [...] mRNA, LNP-s, No Pre serve, 2-Dose Series (WittyParrot) 11/04/2021,02/14/2021,01/24/2021 Covid-19, Mrna, Lnp-s, Pf, B ivalent, 30 Mcg, IM, 12 yrs and above (WittyParrot) 08/25/2022 Pneumococcal Conjugate Vacc, 13 Valent (Prevnar) [...] Sushila Anderson RN documented in this encounter Plan of Treatment Upcoming Encounters Date Type Department Care Team (Late st Contact Info) Description 02/08/2025 2:00 PM EDT Office Visit Cardiology, [facility] [address] [place] [address] Daiana Anne CRNP [address] [place] [address] 04/01/2025 9:20 AM EDT Office Visit General Internal Medicine [facility] 200 [facility] [place] [address] Zuleima Garcia MD 200 [facility] [place] [address] 04/01/2025 10:30 AM EDT Laboratory Laboratory, [facility] [address] [place] [phone] ArredondoMario gallardo [facility] [address] [place] [address] 04/01/2025 11:00 AM EDT Office Visit Cardiology, [facility] [address] [place] [address] Daiana Anne CRNP 132 [place] [address] 04/01/2025 11:15 AM EDT Cardiac Studies Cardiac Studies, [facility] [address] [place] [address] 04/01/2025 2:00 PM EDT Cardiac Studies Cardiac Studies, [facility] [address] [place] [address] Pending Results Name Type Priority Associated Diagnoses Date/Time TRANSESOPHAGEAL ECHO (COMPLETE) Echocardiology Routine Valvular heart disease 01/27/2025 3:46 PM EST Scheduled Procedures Name Priority Associated Diagnoses Date/Ti [...] 11/03/2025 11/03/2022, 05/26 GFR 01/28/2026 01/28/2025, 03/0 04/2025, 01/27/2025, Additional history exists DXA Scan 09/17/2026 09/17/2024 DTap/Tdap Vaccines (2 - Td or Tdap) 05/10/2028 05/10/2018 Lipid Panel 01/19/2030 01/19/2025, 04, 08/24/2023, Additional history exists Colonoscopy 08/07/2031 08/07/2021, 08/07/2021 Colorectal Cancer Screening 08/07/2031 Pneumococcal Vaccine: 50+ Years Completed 05/10/2018, 05/10/2018 Zoster Vaccines Completed 06/09/2018, 05/10/2018 VITAMIN D LEVEL ONCE IN A LIFETIME-USE SMARTSET# [id number] Completed 01/12/2023, 06/03/2021, 08/16/2018 Influenza Vaccine (FLU [...] this encounter Medical Devices Implanted Type Area Campus Security Director Device Identifier Shelf Expiration Date Model / Serial / Lot Cath Thermodilution 6fr - [id number] Implanted:Qty: 1 on 01/18/2025 by Melinda Jin MD at [facility] [employer] [id number] 06/24/2026 [id number] / / [id number] Cath Iabp Sensation 40cc Fiber - [id number] Implanted:Qty: 1 on 01/27/2025 by Nelson Mariee MD at [facility] [employer] : MAQUET [id number] 06/05/2027 0684 -00-0 568-01U / / [id number] Catheter Angio Pigtail Curve 5fr X 110cm Without Sideholes Impulse - [id number] Implanted:Qty: 1 on 01/27/2025 by Nelson Mariee MD at [facility] [employer] : INTRV CARD [id number] 08/07/2026 [id number] / / [id number] Valve Transcath Resilia 29mm - [id number] Implanted:Qty: 1 on 01/27/2025 by Nelson Mariee MD at [facility] [employer] [id number] 09/17/2027 [id number] / / [id number] documented as of this encounter Advance Directives [...] Discussed due to patient's condition Care Teams Hand Rounder Relationship Specialty Start Date End Date Zuleima Garcia MD 200 [facility] [place] [address] PCP - General Internal Medicine 08/28/24 documented as of this encounter
--- OUTSIDE RECORDS SUMMARY | 2025-02-13 00:40 | External Medical Summary ---
Author Name Unknown Address Unknown Organization K01:[facility] [place] [facility] [address] [facility] [address] Laboratory Report Ordering Provider Test Date Status RANI MADRIGAL 01/29/2025 03:47:00 Final Observation Date Value Abnormality Reference (Units ) Status BUN 01/29/2025 03:47:00 25 Above high normal 6-20 (mg/dL) Final Creatinine 01/29/2025 03:47:00 1.6 Above high normal 0.5-1.0 (mg/dL) Final Glomerular filtration rate/1.73 sq M.predicted [Volume Rate/Area] in Serum, Plasma or Blood by Creatinine-based formula (CKD-EPI) 01/29/2025 03:47:00 34 Below low normal >=60 (mL/min) Final eGFR is calculated based on the CKD-EPI 2020 equation. Sodium 01/29/2025 03:47:00 133 Below low normal 135 -146 (mmol/L) Final Potassium 01/29/2025 03:47:00 Final Specimen too hemolyzed. Reor aris if needed. Cl 01/29/2025 03:47:00 98 98-107 (mm ol/L) Final CO2 01/29/2025 03:47:00 20 Below low normal 22- 32 (mmol/L) Final Anion gap 01/29/2025 03:47:00 15 7-15 (mmol /L) Final Glucose 01/29/2025 03:47:00 106 70-120 (mg /dL) Final Calcium 01/29/2025 03:47:00 10.1 8.4-10.2 ( mg/dL) Final Performing Location [facility] [place] [address] [facility] [address]
--- OUTSIDE RECORDS SUMMARY | 2025-02-13 00:40 | External Medical Summary ---
Author Name Unknown Address Unknown Organization K01:[facility] [place] [facility] [address] [facility] [address] Laboratory Report Ordering Provider Test Date Status RANI MADRIGAL 01/29/2025 03:47:00 Final Observation Date Value Abnormality Reference (Units ) Status WBC, Total 01/29/2025 03:47:00 6.94 4.00-10.80 (K/uL) Final RBC 01/29/2025 03:47:00 2.69 3.85-5.15 (M/uL) Final Hemoglobin 01/29/2025 03:47:00 8.4 Below low normal 12.0-15.3 (g/dL) Final HCT 01/29/2025 03:47:00 25.1 Below low normal 36.0-45.2 (%) Final MCV 01/29/2025 03:47:00 93.3 81.5-97.5 (fL) Final MCH 01/29/2025 03:47:00 31.2 27.0-34.0 (pg) Final MCHC 01/29/2025 03:47:00 33.5 32.0-36.0 (g/dL) Final RDW 01/29/2025 03:47:00 14.4 11.5-15.5 (%) Final Platelets 01/29/2025 03:47:00 84 Below low normal 140-400 (K/uL) Final MPV 01/29/2025 03:47:00 12.3 6.6-11.1 (fL) Final Nucleated erythrocytes/100 leukocytes [Ratio] in Blood by Automated count 01/29/2025 03:47:00 0 <=0 (/100 WBCs) Final Performing Location LAB[facility] [place] [address] [place] [address]
--- OUTSIDE RECORDS SUMMARY | 2025-02-13 00:40 | External Medical Summary ---
Author Name Unknown Address Unknown Organization K01:LABORATORY [facility] [place] - [address] [facility] [address] Laboratory Report Ordering Provider Test Date Status ISAAK DURNA 01/28/2025 13:01:12 Final Observation Date Value Abnormality Reference (Units ) Status WBC, Total 01/28/2025 13:01:12 5.86 4.00-10.80 (K/uL) Final RBC 01/28/2025 13:01:12 2.85 3.85-5.15 (M/uL) Final Hemoglobin 01/28/2025 13:01:12 8.9 Below low normal 12.0-15.3 (g/dL) Final HCT 01/28/2025 13:01:12 27.1 Below low normal 36.0-45.2 (%) Final MCV 01/28/2025 13:01:12 95.1 81.5-97.5 (fL) Final MCH 01/28/2025 13:01:12 31.2 27.0-34.0 (pg) Final MCHC 01/28/2025 13:01:12 32.8 32.0-36.0 (g/dL) Final RDW 01/28/2025 13:01:12 14.3 11.5-15.5 (%) Final Platelets 01/28/2025 13:01:12 92 Below low normal 140-400 (K/uL) Final MPV 01/28/2025 13:01:12 11.9 6.6-11.1 (fL) Final Nucleated erythrocytes/100 leukocytes [Ratio] in Blood by Automated count 01/28/2025 13:01:12 0 <=0 (/100 WBCs) Final Performing Location LABORATORY [facility] [place] - [address] [place] [address]
--- OUTSIDE RECORDS SUMMARY | 2025-02-13 00:40 | External Medical Summary ---
Author Name Unknown Address Unknown Organization K01:LABORATORY [facility] [place] - [facility] [address] [facility] [address] Laboratory Report Ordering Provider Test Date Status ISAAK DURAN 01/28/2025 13:01:12 Final Observation Date Value Abnormality Reference (Units ) Status BUN 01/28/2025 13:01:12 20 6-20 (mg/dL) Final Creatinine 01/28/2025 13:01:12 1.4 Above high normal 0.5-1.0 (mg/dL) Final Glomerular filtration rate/1.73 sq M.predicted [Volume Rate/Area] in Serum, Plasma or Blood by Creatinine-based formula (CKD-EPI) 01/28/2025 13:01:12 39 Below low normal >=60 (mL/min) Final eGFR is calculated based on the CKD-EPI 2020 equation. Sodium 01/28/2025 13:01:12 131 Below low normal 135 -146 (mmol/L) Final Potassium 01/28/2025 13:01:12 Final Specimen too hemolyzed. Reor aris if needed. Cl 01/28/2025 13:01:12 97 Below low normal 98- 107 (mmol/L) Final CO2 01/28/2025 13:01:12 20 Below low normal 22- 32 (mmol/L) Final Anion gap 01/28/2025 13:01:12 14 7-15 (mmol /L) Final Glucose 01/28/2025 13:01:12 116 70-120 (mg /dL) Final Calcium 01/28/2025 13:01:12 10.1 8.4-10.2 ( mg/dL) Final Performing Location LABORATORY [facility] [place] - [address] [facility] [address]
--- OUTSIDE RECORDS SUMMARY | 2025-02-13 00:40 | External Medical Summary ---
Author Name Unknown Address Unknown Organization K01:LABORATORY [facility] [place] - [address] [place] [address] Laboratory Report Ordering Provider Test Date Status MARY STEELE 01/28/2025 11:45:44 Final Normal: <150 mg/ g creatinine
High: 150-500 mg/g creatinine
Very High: >500 mg/g creatinine
Nephrotic: >3000 mg/g creatinine Observation Date Value Abnormality Reference (Units ) Status Protein/Creatinine [Ratio] in Urine 01/28/2025 11:45:44 5476 Above high normal <150 (mg/g ) Final Protein, Urine 01/28/2025 11:45:44 575 (mg/dL) Final Creatinine, Urine 01/28/2025 11:45:44 105 (mg/dL) Final Performing Location LABORATORY [facility] [place] - [address] [place] [address]
--- OUTSIDE RECORDS SUMMARY | 2025-02-13 00:40 | External Medical Summary ---
Author Name Unknown Address Unknown Organization K01:[place] [facility] [place] [facility] [place] [address] Laboratory Report Ordering Provider Test Date Status SUYAPA OSPINA 01/29/2025 03:47:00 Final Observation Date Value Abnormality Reference (Units ) Status Retic, % (auto) 01/29/2025 03:47:00 1.70 0.80-1.90 (%) Final Reticulocytes, Absolute 01/29/2025 03:47:00 45.9 31.3-100.1 (K/uL) Final Reticulocyte fraction, immature 01/29/2025 03:47:00 17.6 2.5-20.6 (%) Final Reticulocyte HGB 01/29/2025 03:47:00 32.4 29.7-37.4 (pg) Final Performing Location [facility] [place] [address] [place] [address]
--- OUTSIDE RECORDS SUMMARY | 2025-02-13 00:40 | External Medical Summary ---
Author Name Unknown Address Unknown Organization K01:[place] [facility] [place] [facility] [place] [address] [place] [address] Laboratory Report Ordering Provider Test Date Status MARY STEELE 01/28/2025 11:45:44 Final Normal: <30 mg/g creatinine< br/>High: 30-300 mg/g creatinine
Very High: >300 mg/g creatinine
Nephrotic: >2200 mg/g creatinine Observation Date Value Abnormality Reference (Units ) Status Albumin, Urine 01/28/2025 11:45:44 65.00 (mg/dL) Final Creatinine, Urine 01/28/2025 11:45:44 106 (mg/dL) Final Albumin/Creatinine [Mass Ratio] in Urine 01/28/2025 11:45:44 613 Above high normal <30 (mg/g Creat) Final Performing Location [facility] [place] [facility] [place] [address] [place] [address]
--- OUTSIDE RECORDS SUMMARY | 2025-02-13 00:40 | External Medical Summary | Summary of Care ---
Author Name Unknown Organization [facility] Address [address] [place] [address] Phone [phone] Care Team Providers Care Electronics Repair Technician Name Role Phone Zuleima Garcia MD Primary Care Provider + Reason for Visit * Reason Onset Date Comments Appointment 01/21/2025 Encounter Details Date Type Department Care Team (Late st Contact Info) Description 01/21/2025 Telephone Hematology/Oncology Treatment, [place] [address] [place] [address] Edin Garcia MD [address] [facility] [place] [address] Appointment Allergies Active Allergy Reactions Criticality Noted [...] mRNA, LNP-s, No Pre serve, 2-Dose Series (Campanja) 11/04/2021,02/14/2021,01/24/2021 Covid-19, Mrna, Lnp-s, Pf, B ivalent, 30 Mcg, IM, 12 yrs and above (Campanja) 08/25/2022 Pneumococcal Conjugate Vacc, 13 Valent (Prevnar) [...] Telephone Encounter - Zuleima Garcia MD - 01/28/2025 2:23 PM EST Noted. Thanks * Telephone Encounter - Jenny Tiwari RN - 01/28/2025 7:25 AM EST Patient admitted again yesterday for cardiac procedure. IM: [phone] once patient is discharged and referral has been placed, if patient wishes to have this done. * Telephone Encounter - Zuleima Garcia MD - 01/25/2025 2:27 PM EST Patient was advised few months back to be seen by freezer worker for possibility of multiple myeloma but at that time patient and her daughter decided not to pursue any further workup or treatment. Please check with the patient and family if they are agreeable to be seen by freezer worker. We would certainly recommend she see freezer worker as there are good treatment options. If [...] 02/08/2025 2:00 PM EDT Office Visit Cardiology, [facility] [address] [place] [address] Daiana Anne CRNP [address] [place] [address] 04/01/2025 9:20 AM EDT Office [facility] [address] [place] [address] Zuleima Garcia MD [address] [facility] [place] [address] 04/01/2025 10:30 AM EDT Laboratory Laboratory, [facility] [address] [id number] [facility] [address] [place] [address] 04/01/2025 11:00 AM EDT Office Visit Cardiology, [facility] [address] [address] Daiana Anne CRNP [address] [id number] 04/01/2025 11:15 AM EDT Cardiac Studies Cardiac Studies, [facility] [address] [address] 04/01/2025 2:00 PM EDT Cardiac Studies Cardiac Studies, [facility] [address] [place] [id number] Scheduled Procedures Name Priority Associated Diagnoses Date/Ti [...] D LEVEL ONCE IN A LIFETIME-USE SMARTSET# [id number] Completed 01/12/2023, 06/03/2021, 08/16/2018 Influenza Vaccine (FLU [...] this encounter Medical Devices Implanted Type Area Hydrochloric Acid Operator Device Identifier Shelf Expiration Date Model / Serial / Lot Cath Thermodilution 6fr - [id number] Implanted:Qty: 1 on 01/18/2025 by Melinda Jin MD at [facility] [place] [employer] DARYL [id number] 06/24/2026 [id number] / / [id number] Cath Iabp Sensation 40cc Fiber - [id number] Implanted:Qty: 1 on 01/27/2025 by Nelson Mariee MD at [facility] [employer] : MAQUET [id number] 06/05/2027 0684 -00-0 [id number] / / [id number] Catheter Angio Pigtail Curve 5fr X 110cm Without Sideholes Impulse - [id number] Implanted:Qty: 1 on 01/27/2025 by Nelson Mariee MD at [facility] [place] [employer] : INTRV CARD [id number] 08/07/2026 [id number] / / [id number] Valve Transcath Resilia 29mm - [id number] Implanted:Qty: 1 on 01/27/2025 by Nelson Mariee MD at [facility] [employer] [id number] 09/17/2027 [id number] / / [id number] documented as of this encounter Advance Directives [...] due to patient's condition Care Teams Electronics Repair Technician Relationship Specialty Start Date End Date Zuleima Garcia MD [address] [place] [address] PCP - General Internal Medicine 08/28/24 documented as of this encounter
--- OUTSIDE RECORDS SUMMARY | 2025-02-13 00:40 | External Medical Summary ---
Author Name Unknown Address Unknown Organization K01:[place] [facility] [place] [address] [place] [address] Laboratory Report Ordering Provider Test Date Status RANI MADRIGAL 01/28/2025 10:20:55 Final Observation Date Value Abnormality Reference (Units ) Status Complement C3c [Mass/volume] in Serum or Plasma 01/28/2025 10:20:55 87 Below low normal 90-180 (mg/dL) Final Performing Location [place] [facility] [place] [address] [place] [id number]
--- OUTSIDE RECORDS SUMMARY | 2025-02-13 00:40 | External Medical Summary ---
Author Name Unknown Address Unknown Organization K01:[place] [place] [facility] [address] [facility] [place] [address] Laboratory Report Ordering Provider Test Date Status SUYAPA OSPINA 01/29/2025 03:47:00 Final Observation Date Value Abnormality Reference (Units ) Status Albumin 01/29/2025 03:47:00 3.0 Below low normal 3.8-5.0 (g/dL) Final AST (Aspartate aminotransferase) 01/29/2025 03:47:00 Final Specimen too hemolyzed. Reor aris if needed. Alk Phos 01/29/2025 03:47:00 42 35-130 (U/ L) Final Results may be falsely eleva shyann due to hemolysis. ALT (Alanine aminotransferase) 01/29/2025 03:47:00 22 10-35 (U/L) Final Results may be falsely eleva shyann due to hemolysis. Bilirubin, Total 01/29/2025 03:47:00 2.4 Above high no rmal <=1.2 (mg/dL) Final Bilirubin, Direct 01/29/2025 03:47:00 Final Specimen too hemolyzed. Reor aris if needed. Protein 01/29/2025 03:47:00 8.1 6.0-8.3 (g /dL) Final Performing Location [facility] [place] [address] [facility] [place] [address]
--- OUTSIDE RECORDS SUMMARY | 2025-02-13 00:41 | External Medical Summary ---
Author Name Unknown Address Unknown Organization K01:[place] [facility] [place] [address] [facility] [address] Laboratory Report Ordering Provider Test Date Status RANI MADRIGAL 01/28/2025 04:52:00 Final Observation Date Value Abnormality Reference (Units ) Status WBC, Total 01/28/2025 04:52:00 6.26 4.00-10.80 (K/uL) Final RBC 01/28/2025 04:52:00 2.72 3.85-5.15 (M/uL) Final Hemoglobin 01/28/2025 04:52:00 8.5 Below low normal 12.0-15.3 (g/dL) Final HCT 01/28/2025 04:52:00 26.0 Below low normal 36.0-45.2 (%) Final MCV 01/28/2025 04:52:00 95.6 81.5-97.5 (fL) Final MCH 01/28/2025 04:52:00 31.3 27.0-34.0 (pg) Final MCHC 01/28/2025 04:52:00 32.7 32.0-36.0 (g/dL) Final RDW 01/28/2025 04:52:00 14.3 11.5-15.5 (%) Final Platelets 01/28/2025 04:52:00 88 Below low normal 140-400 (K/uL) Final MPV 01/28/2025 04:52:00 12.0 6.6-11.1 (fL) Final Nucleated erythrocytes/100 leukocytes [Ratio] in Blood by Automated count 01/28/2025 04:52:00 0 <=0 (/100 WBCs) Final Performing Location [facility] [facility] [place] [address] [place] [address]
--- OUTSIDE RECORDS SUMMARY | 2025-02-13 00:41 | External Medical Summary ---
Author Name Unknown Address Unknown Organization : Laboratory Report Ordering Provider Test Date Status BHUPINDER KIRKPATRICK 01/27/2025 09:24:09 Final Observation Date Value Abnormality Reference (Units ) Status Performing Location
--- OUTSIDE RECORDS SUMMARY | 2025-02-13 00:41 | External Medical Summary ---
Author Name Unknown Address Unknown Organization K01:LABORATORY [facility] [place] - [address] [facility] [address] Laboratory Report Ordering Provider Test Date Status DAREN GUTIERREZ 01/27/2025 09:24:09 Final Observation Date Value Abnormality Reference (Units ) Status BUN 01/27/2025 09:24:09 10 6-20 (mg/dL) Final Creatinine 01/27/2025 09:24:09 0.6 0.5-1.0 (mg/dL) Final Glomerular filtration rate/1.73 sq M.predicted [Volume Rate/Area] in Serum, Plasma or Blood by Creatinine-based formula (CKD-EPI) 01/27/2025 09:24:09 >90 >=60 (mL/min) Final eGFR is calculated based on the CKD-EPI 2020 equation. Sodium 01/27/2025 09:24:09 134 Below low normal 135 -146 (mmol/L) Final Potassium 01/27/2025 09:24:09 4.4 3.5-5.1 (m mol/L) Final Cl 01/27/2025 09:24:09 97 Below low normal 98- 107 (mmol/L) Final CO2 01/27/2025 09:24:09 24 22-32 (mmo l/L) Final Anion gap 01/27/2025 09:24:09 13 7-15 (mmol /L) Final Glucose 01/27/2025 09:24:09 94 70-120 (mg /dL) Final Calcium 01/27/2025 09:24:09 10.2 8.4-10.2 ( mg/dL) Final Performing Location LABORATORY [facility] [place] - [address] [place] [address]
--- OUTSIDE RECORDS SUMMARY | 2025-02-13 00:41 | External Medical Summary ---
Author Name Unknown Address Unknown Organization K01:[place] [facility] [place] [address] [facility] [address] Laboratory Report Ordering Provider Test Date Status RANI MADRIGAL 01/27/2025 17:39:00 Final Observation Date Value Abnormality Reference (Units ) Status BUN 01/27/2025 17:39:00 10 6-20 (mg/dL) Final Creatinine 01/27/2025 17:39:00 0.6 0.5-1.0 (mg/dL) Final Glomerular filtration rate/1.73 sq M.predicted [Volume Rate/Area] in Serum, Plasma or Blood by Creatinine-based formula (CKD-EPI) 01/27/2025 17:39:00 >90 >=60 (mL/min) Final eGFR is calculated based on the CKD-EPI 2020 equation. Sodium 01/27/2025 17:39:00 136 135-146 (m mol/L) Final Potassium 01/27/2025 17:39:00 4.0 3.5-5.1 (m mol/L) Final Cl 01/27/2025 17:39:00 100 98-107 (mm ol/L) Final CO2 01/27/2025 17:39:00 22 22-32 (mmo l/L) Final Anion gap 01/27/2025 17:39:00 14 7-15 (mmol /L) Final Glucose 01/27/2025 17:39:00 133 Above high normal 70 -120 (mg/dL) Final Calcium 01/27/2025 17:39:00 9.4 8.4-10.2 ( mg/dL) Final Performing Location [place] [facility] [place] [address] [place] [address]
--- OUTSIDE RECORDS SUMMARY | 2025-02-13 00:41 | External Medical Summary ---
Author Name Unknown Address Unknown Organization K01:LABORATORY [facility] [place] [address] [facility] [address] Laboratory Report Ordering Provider Test Date Status BHUPINDER KIRKPATRICK 01/27/2025 09:24:09 Final Observation Date Value Abnormality Reference (Units ) Status TSH 01/27/2025 09:24:09 2.02 0.27-4.20 (uIU/mL) Final Performing Location LABORATORY [facility] [place] - [address] [facility] [address]
--- OUTSIDE RECORDS SUMMARY | 2025-02-13 00:41 | External Medical Summary ---
Author Name Unknown Address Unknown Organization K01:LABORATORY [facility] - [address] [place] [address] Laboratory Report Ordering Provider Test Date Status RANI MADRIGAL 01/28/2025 10:20:55 Final Observation Date Value Abnormality Reference (Units ) Status C4 01/28/2025 10:20:55 28 10-40 (mg/ dL) Final Performing Location LABORATORY [facility] - [address] [place] [address]
--- OUTSIDE RECORDS SUMMARY | 2025-02-13 00:41 | External Medical Summary ---
Author Name Unknown Address Unknown Organization : Laboratory Report Ordering Provider Test Date Status DAREN GUTIERREZ 01/27/2025 13:11:26 Final NORMAL (NON-HEPARINIZED) 74- 137 SECONDS
HEPARINIZED 200+ SECONDS
CRITICAL GREATER THAN 1000 SECONDS
null Observation Date Value Abnormality Reference (Units ) Status Kaolin activated time [Units/volume] in Blood 01/27/2025 13:11:26 256 50-1000 (secs) Final Performing Location
--- OUTSIDE RECORDS SUMMARY | 2025-02-13 00:41 | External Medical Summary ---
Author Name Unknown Address Unknown Organization K01:[facility]ORY [facility] [place] - [address] [place] [address] Laboratory Report Ordering Provider Test Date Status DAREN GUTIERREZ 01/27/2025 09:24:09 Final Observation Date Value Abnormality Reference (Units ) Status Albumin 01/27/2025 09:24:09 3.3 Below low normal 3.8-5.0 (g/dL) Final AST (Aspartate aminotransferase) 01/27/2025 09:24:09 21 10-35 (U/L) Final Alk Phos 01/27/2025 09:24:09 68 35-130 (U/L) Final ALT (Alanine aminotransferase) 01/27/2025 09:24:09 15 10-35 (U/L) Final Bilirubin, Total 01/27/2025 09:24:09 0.5 <=1.2 (mg/dL) Final Bilirubin, Direct 01/27/2025 09:24:09 0.2 0.0-0.3 (mg/dL) Final Protein 01/27/2025 09:24:09 8.4 Above high normal 6.0-8.3 (g/dL) Final Performing Location LABORATORY [facility] [place] - [address] [place] [address]
--- OUTSIDE RECORDS SUMMARY | 2025-02-13 00:41 | External Medical Summary ---
Author Name Unknown Address Unknown Organization : Laboratory Report Ordering Provider Test Date Status DAREN GUTIERREZ 01/27/2025 14:33:16 Final NORMAL (NON-HEPARINIZED) 74- 137 SECONDS
HEPARINIZED 200+ SECONDS
CRITICAL GREATER THAN 1000 SECONDS
null Observation Date Value Abnormality Reference (Units ) Status Kaolin activated time [Units/volume] in Blood 01/27/2025 14:33:16 302 50-1000 (secs) Final Performing Location
--- OUTSIDE RECORDS SUMMARY | 2025-02-13 00:41 | External Medical Summary ---
Author Name Unknown Address Unknown Organization K01:[facility]ORY [facility] [place] [address] [facility] [address] Laboratory Report Ordering Provider Test Date Status RANI MADRIGAL 01/27/2025 17:39:00 Final Observation Date Value Abnormality Reference (Units ) Status WBC, Total 01/27/2025 17:39:00 9.46 4.00-10.80 (K/uL) Final RBC 01/27/2025 17:39:00 3.25 3.85-5.15 (M/uL) Final Hemoglobin 01/27/2025 17:39:00 10.0 Below low normal 12.0-15.3 (g/dL) Final HCT 01/27/2025 17:39:00 31.8 Below low normal 36.0-45.2 (%) Final MCV 01/27/2025 17:39:00 97.8 81.5-97.5 (fL) Final MCH 01/27/2025 17:39:00 30.8 27.0-34.0 (pg) Final MCHC 01/27/2025 17:39:00 31.4 32.0-36.0 (g/dL) Final RDW 01/27/2025 17:39:00 14.1 11.5-15.5 (%) Final Platelets 01/27/2025 17:39:00 109 Below low normal 140-400 (K/uL) Final MPV 01/27/2025 17:39:00 11.6 6.6-11.1 (fL) Final Nucleated erythrocytes/100 leukocytes [Ratio] in Blood by Automated count 01/27/2025 17:39:00 0 <=0 (/100 WBCs) Final Performing Location LAB[facility]ATORY [facility] [place] - [address] [place] [address]
--- OUTSIDE RECORDS SUMMARY | 2025-02-13 00:41 | External Medical Summary ---
Author Name Unknown Address Unknown Organization K01:[place] [facility] [place] [address] [place] [address] Laboratory Report Ordering Provider Test Date Status ISAAK DURAN 01/27/2025 21:01:00 Final Observation Date Value Abnormality Reference (Units ) Status WBC, Total 01/27/2025 21:01:00 7.98 4.00-10.80 (K/uL) Final RBC 01/27/2025 21:01:00 3.01 3.85-5.15 (M/uL) Final Hemoglobin 01/27/2025 21:01:00 9.3 Below low normal 12.0-15.3 (g/dL) Final HCT 01/27/2025 21:01:00 28.6 Below low normal 36.0-45.2 (%) Final MCV 01/27/2025 21:01:00 95.0 81.5-97.5 (fL) Final MCH 01/27/2025 21:01:00 30.9 27.0-34.0 (pg) Final MCHC 01/27/2025 21:01:00 32.5 32.0-36.0 (g/dL) Final RDW 01/27/2025 21:01:00 14.2 11.5-15.5 (%) Final Platelets 01/27/2025 21:01:00 97 Below low normal 140-400 (K/uL) Final MPV 01/27/2025 21:01:00 11.2 6.6-11.1 (fL) Final Nucleated erythrocytes/100 leukocytes [Ratio] in Blood by Automated count 01/27/2025 21:01:00 0 <=0 (/100 WBCs) Final Performing Location [facility] [place] [address] [place] [address]
--- OUTSIDE RECORDS SUMMARY | 2025-02-13 00:41 | External Medical Summary ---
Author Name Unknown Address Unknown Organization K01:[place] [facility] [place] [facility] [place] [facility] [place] [address] [place] [address] Laboratory Report Ordering Provider Test Date Status DAREN GUTIERREZ 01/27/2025 09:24:09 Final Observation Date Value Abnormality Reference (Units ) Status ABO 01/27/2025 09:24:09 O Final RH 01/27/2025 09:24:09 Positive Final RED BLOOD CELL ANTIBODY SCREEN 01/27/2025 09:24:09 Negative Final SPECIMEN EXPIRATION DATE 01/27/2025 09:24:09 01/30/2025 23:59 Final Performing Location [facility] [place] [facility] [place] [facility] [place] [address] [place] [address]
--- OUTSIDE RECORDS SUMMARY | 2025-02-13 00:41 | External Medical Summary ---
Author Name Unknown Address Unknown Organization K01:LAB[facility] [place] - [facility] [address] [facility] [address] Laboratory Report Ordering Provider Test Date Status BHUPINDER KIRKPATRICK 01/27/2025 09:24:09 Final Observation Date Value Abnormality Reference (Units ) Status WBC, Total 01/27/2025 09:24:09 4.69 4.00-10.8 0 (K/uL) Final RBC 01/27/2025 09:24:09 3.54 3.85-5.15 (M/uL) Final Hemoglobin 01/27/2025 09:24:09 10.6 Below low normal 12 .0-15.3 (g/dL) Final Anemia reflex testing trigge rs on a HGB < 12.0 for Females and HGB < 13.0 for Males in accordance with the WHO Anemia Guidelines HCT 01/27/2025 09:24:09 33.5 Below low normal 36. 0-45.2 (%) Final MCV 01/27/2025 09:24:09 94.6 81.5-97.5 (fL) Final MCH 01/27/2025 09:24:09 29.9 27.0-34.0 (pg) Final MCHC 01/27/2025 09:24:09 31.6 32.0-36.0 (g/dL) Final RDW 01/27/2025 09:24:09 14.0 11.5-15.5 (%) Final Platelets 01/27/2025 09:24:09 125 Below low normal 140 -400 (K/uL) Final MPV 01/27/2025 09:24:09 11.3 6.6-11.1 ( fL) Final Nucleated erythrocytes/100 leukocytes [Ratio] in Blood by Automated count 01/27/2025 09:24:09 0 <=0 (/100 WBCs) Final Performing Location LABORATORY [facility] [place] - [address] [facility] [address]
--- OUTSIDE RECORDS SUMMARY | 2025-02-13 00:41 | External Medical Summary ---
Author Name Unknown Address Unknown Organization : Laboratory Report Ordering Provider Test Date Status DAREN GUTIERREZ 01/27/2025 13:31:41 Final NORMAL (NON-HEPARINIZED) 74- 137 SECONDS
HEPARINIZED 200+ SECONDS
CRITICAL GREATER THAN 1000 SECONDS
null Observation Date Value Abnormality Reference (Units ) Status Kaolin activated time [Units/volume] in Blood 01/27/2025 13:31:41 320 50-1000 (secs) Final Performing Location
--- OUTSIDE RECORDS SUMMARY | 2025-02-13 00:41 | External Medical Summary ---
Author Name Unknown Address Unknown Organization : Laboratory Report Ordering Provider Test Date Status DAREN GUTIERREZ 01/27/2025 15:42:37 Final NORMAL (NON-HEPARINIZED) 74- 137 SECONDS
HEPARINIZED 200+ SECONDS
CRITICAL GREATER THAN 1000 SECONDS
null Observation Date Value Abnormality Reference (Units ) Status Kaolin activated time [Units/volume] in Blood 01/27/2025 15:42:37 164 50-1000 (secs) Final Performing Location
--- OUTSIDE RECORDS SUMMARY | 2025-02-13 00:41 | External Medical Summary ---
Author Name Unknown Address Unknown Organization : Laboratory Report Ordering Provider Test Date Status DAREN GUTIERREZ 01/27/2025 12:41:24 Final NORMAL (NON-HEPARINIZED) 74- 137 SECONDS
HEPARINIZED 200+ SECONDS
CRITICAL GREATER THAN 1000 SECONDS
null Observation Date Value Abnormality Reference (Units ) Status Kaolin activated time [Units/volume] in Blood 01/27/2025 12:41:24 302 50-1000 (secs) Final Performing Location
--- OUTSIDE RECORDS SUMMARY | 2025-02-13 00:41 | External Medical Summary ---
Author Name Unknown Address Unknown Organization K01:LABORATORY [facility] [place] [address] [place] [address] Laboratory Report Ordering Provider Test Date Status KAYABHUPINDER 01/27/2025 09:24:09 Final Exclude Heart Failure: <300 pg/mL
Diagnose Heart Failure:
Age <50 yr: >450 pg/mL
50-75 yr: >900 pg/mL
>75 yr: >1800 pg/mL
GFR is 30-59 mL/min: >1200 pg/mL or Age- adjusted values
GFR <30 mL/min: do not use, not reliable

Prognostic threshold: 1000 pg/mL Observation Date Value Abnormality Reference (Units ) Status BNP, Pro-hormone 01/27/2025 09:24:09 7517 Above high no rmal <300 (pg/mL) Final Performing Location [facility] [place] - [facility] [address] [place] [address]
--- OUTSIDE RECORDS SUMMARY | 2025-02-13 00:41 | External Medical Summary ---
Author Name Unknown Address Unknown Organization [id number]:LABORATORY [facility] [place] - [facility] [address] [facility] [address] Laboratory Report Ordering Provider Test Date Status RANI MADRIGAL 01/28/2025 04:52:00 Final Observation Date Value Abnormality Reference (Units ) Status BUN 01/28/2025 04:52:00 17 6-20 (mg/dL) Final Creatinine 01/28/2025 04:52:00 1.2 Above high normal 0.5-1.0 (mg/dL) Final Glomerular filtration rate/1.73 sq M.predicted [Volume Rate/Area] in Serum, Plasma or Blood by Creatinine-based formula (CKD-EPI) 01/28/2025 04:52:00 50 Below low normal >=60 (mL/min) Final eGFR is calculated based on the CKD-EPI 2020 equation. Sodium 01/28/2025 04:52:00 131 Below low normal 135 -146 (mmol/L) Final Potassium 01/28/2025 04:52:00 Final Specimen too hemolyzed. Reor aris if needed. Cl 01/28/2025 04:52:00 98 98-107 (mm ol/L) Final CO2 01/28/2025 04:52:00 20 Below low normal 22- 32 (mmol/L) Final Anion gap 01/28/2025 04:52:00 13 7-15 (mmol /L) Final Glucose 01/28/2025 04:52:00 104 70-120 (mg /dL) Final Calcium 01/28/2025 04:52:00 9.7 8.4-10.2 ( mg/dL) Final Performing Location LABORATORY [facility] [place] - [address] [facility] [address]
--- OUTSIDE RECORDS SUMMARY | 2025-02-13 00:41 | External Medical Summary ---
Author Name Unknown Address Unknown Organization [id number]:LAB[facility]ATORY [facility] [place] [facility] - [address] [place] [address] Laboratory Report Ordering Provider Test Date Status DAREN GUTIERREZ 01/27/2025 09:24:09 Final Observation Date Value Abnormality Reference (Units ) Status ABO 01/27/2025 09:24:09 O Final RH 01/27/2025 09:24:09 Positive Final Performing Location LAB[facility]ORY [facility] [place] [facility] - [address] [place] [address]
--- OUTSIDE RECORDS SUMMARY | 2025-02-13 00:41 | External Medical Summary ---
Author Name Unknown Address Unknown Organization K01:LABORATORY [facility] - [address] [facility] [address] Laboratory Report Ordering Provider Test Date Status RANI MADRIGAL 01/27/2025 17:39:00 Final Observation Date Value Abnormality Reference (Units ) Status Magnesium 01/27/2025 17:39:00 2.0 1.5-2.6 (m g/dL) Final Performing Location LABORATORY [facility] - [address] [facility] [address]
--- OUTSIDE RECORDS SUMMARY | 2025-02-13 00:41 | External Medical Summary | Summary of Care ---
Author Name Unknown Organization [facility] Address [address] [place] [address] Phone [phone] Care Team Providers Care Research Consultant Name Role Phone Zuleima Garcia MD Primary Care Provider + Reason for Referral * Precert (Diagnostic Medical) (Within 10 days (routine)) - Authorized Specialty Diagnoses / Procedures Referred By Contac t Referred To Contact Cardiac Studies Diagnoses S/P insertion of tricuspid valve leaflet clip Procedures ECHO, COMPLETE (2D), TRANS-THORACIC Daiana Anne CRNP [address] [place] [address] Phone: tel: fax: Referral ID Status Reason Start Date Expiration Date V isits Requested Visits Authorized [id number] Authorized Precert 04/01/2025 [id number] Encounter Details Date Type Department Care Team (Late st Contact Info) Description 01/25/2025 Orders Only Cardiology [facility] [place] [address] [place] [address] [facility] [address], [place] [id number] S/P insertion of tricuspid valve leaflet clip* Allergies Active Allergy Reactions Criticality Noted Date Comments Ezetimibe Low 11/28/2023 General malaise or feeling unwell Famotidine Diarrhea Low 09/13/2024 Prednisone Muscle pain Medium 07/15/2024 Pantoprazole Hives Medium 02/07/2022 GI upset Rosuvastatin Medium 11/28/2023 Muscle aches/pains, fatigue Statins Medium 11/01/2022 myalgia Torsemide Low 08/12/2024 GI symptoms documented as of this encounter (statuses as of 01/26/2025) Medications Ferrous Sulfate 325 (65 Fe) MG [...] 600+D Plus Minerals 600-800 MG-UNIT Oral Tablet ChewableIndicati ons:Vitamin D deficiency Take 1 Tablet by mouth every morning. 4 Active amLODIPine Besylate 5 MG Oral Tablet (Norvasc)Indicat ions:Hypertensio n goal BP (blood pressure) < 130/80 Take 0.5 Tablets by mouth in the morning. 4 Active Apixaban 5 MG Oral Tablet (Eliquis)Indicat ions:Paroxysmal A-fib (HCC) Take 1 Tablet by mouth in the morning and 1 Tablet before bedtime. 180 Tablet 3 09/07/2024 11:51 AM EDT 4 Active Metoprolol Succinate ER 50 MG Oral Tablet Extended Release 24 Hour (toPROL XL) Take 1 Tablet by mouth in the morning and 1 Tablet before bedtime. 180 Tablet 3 4 Active DIURETIC TITRATION PLANIndications: Heart failure with preserved ejection fraction, unspecified HF chronicity (HCC) If no improvement on day 3, contact heart failure managing provider. 1 Each 4 Active Furosemide 20 MG Oral Tablet (Lasix)Indicatio ns:Acute on chronic HFrEF (heart failure with reduced ejection fraction) ([facility]) Two tablets by mouth daily with an extra dose as needed for weight gain or worsening leg swelling 210 Tablet 3 4 Active Digoxin 125 MCG Oral Tablet (Lanoxin) Take 1 Tablet by mouth in the morning. 90 Tablet 3 4 Active documented as of this encounter (statuses as of 01/26/2025) Active Problems Problem Noted Date Diagnosed Date [...] as of this encounter (statuses as of 01/26/2025) Resolved Problems Problem Noted Date Diagnosed Date Resolved Date HTN, goal below 130/80 08/12/201808/16 documented as of this encounter (statuses as of 01/26/2025) Immunizations Name Administration Dates Next Due COVID-19 mRNA, LNP-s, No Pre serve, 2-Dose Series (Done In :60 Seconds) 11/04/2021,02/14/2021,01/24/2021 Covid-19, Mrna, Lnp-s, Pf, B ivalent, 30 Mcg, IM, 12 yrs and above (Done In :60 Seconds) 08/25/2022 Pneumococcal Conjugate Vacc, 13 Valent (Prevnar) [...] have concerns for your saf ety? No 08/05/2024 Do you have concerns for you r family's safety? (Household - for ages 0-17 years) Not on file 08/05/2024 Utilities Answer Date Recorded Do you have trouble paying y our heating, water, or electric bill? No 08/05/2024 Is your family able to pay t he heat, water, or electric bill? (Household - for ages 0-17 years) Not on file 08/05/2024 Does your family have access to good internet? (Household - for ages 0-17 years) Not on file 08/05/2024 Employment Status Answer Date Recorded Are you [...] 18 years and over) Not on file 08/05/2024 Does your family have a hard time getting a ride to doctors visits? (Household - for ages 0-17 years) Not on file 08/05/2024 Has lack of transportation k ept you from medical appointments, meetings, work, or from getting things needed for daily living? Check all that apply. No 08/05/2024 Do you (or your family) have trouble finding or paying for a ride (transportation)? (Household - for ages 0-17 years) Not on file 08/05/2024 Housing Stability Answer Date Recorded Do you currently live in a s helter or have no steady place to sleep at night? No 08/05/2024 Do you think you are at risk of becoming homeless? (Adult - for ages 18 years and over) Not on file 08/05/2024 Does your family worry about paying for your home or becoming homeless? (Household - for ages 0-17 years) Not on file 0 08/05/2024 Are you homeless or worried that you might be in the future? No 08/05/2024 Are you (or your family) kesha eless [...] money to get more. Never true 08/05/2024 Do you need food for this week? No 08/05/2024 Comments No Sex and Gender Information Value [...] Entry Date Author No 01/18/2025 8:15 PM EST Sushila Thorne RN documented in this encounter Plan of Treatment Upcoming Encounters Date Type Department Care Team (Latest Contact Info) Description 01/27/2025 9:00 AM EST Hospital Encounter CRS Waiting [place], Cardiac Recovery Suite Waiting Unit, H [address] [place] [address] Nelson Mariee MD [address] [place] [address] 01/27/2025 9:00 AM EST - 01/27/2025 10:00 AM EST Surgery [facility]S Waiting [place], Cardiac Recovery Suite Waiting Unit, H [address] [place] [address] Nelson Mariee MD [address] [place] [address] TRANSCATHETER 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; PERCUTANEOUS APPROACH, INCLUDING TRANSSEPTAL PUNCTURE, WHEN PERFORMED 01/27/2025 9:00 AM EST [facility] [address] [place] [address] [facility] [address] [place] [address] 04/01/2025 9:20 AM EDT Office Visit General Internal Medicine [facility] [address] [place] [address] Zuleima Garcia MD 200 [facility] [place] [address] 04/01/2025 11:00 AM EDT Office Visit Cardiology, [facility] [address] [facility] [place] [address] Daiana Anne CRNP [facility] [place] [address] Scheduled Orders Name Type Priority Associated Diagnoses Orde r Schedule EKG COMPLETE (TRACING AND INTERP) EKG Routine S/P insertion of tricuspid valve leaflet clip Expected: 04/01/2025, Expires: 02/25/2026 ECHO, COMPLETE (2D), TRANS-THORACIC Echocardiology Routine S/P insertion of tricuspid valve leaflet clip Expected: 04/01/2025 (Approximate), Expires: 02/25/2027 CBC Lab Routine S/P insertion of tricuspid valve leaflet clip Expected: 04/01/2025, Expires: 01/25/2026 BASIC METABOLIC PANEL Lab Routine S/P insertion of tricuspid valve leaflet clip Expected: 04/01/2025, Expires: 01/25/2026 Scheduled Procedures Name Priority Associated Diagnoses Date/Ti me TRANSCATHETER MITRAL VALVE IMPLANTATION/REPLACEMENT (TMVI) WITH PROSTHETIC VALVE; PERCUTANEOUS APPROACH, INCLUDING TRANSSEPTAL PUNCTURE, WHEN PERFORMED Mitral valve regurgitation 01/27/2025 9:00 AM EST TRANSCATHETER MITRAL VALVE IMPLANTATION/REPLACEMENT (TMVI) WITH PROSTHETIC VALVE; PERCUTANEOUS APPROACH, INCLUDING TRANSSEPTAL PUNCTURE, WHEN PERFORMED Mitral valve regurgitation 01/27/2025 9:00 AM EST COLONOSCOPY FLEXIBLE PROXIMAL DIAGNOSTIC Recall Iron deficiency anemia due to [...] exists Albumin/Creatinine Ratio 11/03/2025 11/03/2022, 05/26 GFR 01/21/2026 01/21/2025, 12/27, 01/19/2025, Additional history exists DXA Scan 09/17/2026 09/17/2024 DTap/Tdap Vaccines (2 - Td or Tdap) 05/10/2028 05/10/2018 Lipid Panel 01/19/2030 01/19/2025, 04/, 08/24/2023, Additional history exists Colonoscopy 08/07/2031 08/07/2021, 08/07/2021 Colorectal Cancer Screening 08/07/2031 Pneumococcal Vaccine: 50+ Years Completed 05/10/2018, 05/10/2018 Zoster Vaccines Completed 06/09/2018, 05/10/2018 VITAMIN D LEVEL ONCE IN A LIFETIME-USE SMARTSET# [id number] Completed 01/12/2023, 06/03/2021, 08/16/2018 Influenza Vaccine (FLU [...] this encounter Medical Devices Implanted Type Area Juice Mixer Device Identifier Shelf Expiration Date Model / Serial / Lot Cath Thermodilution 6fr - [id number] Implanted:Qty: 1 on 01/18/2025 by Melinda Jin MD at [facility] [employer] DARYL [id number] 06/24/2026 [id number] / / [id number] documented as of this encounter Visit Diagnoses Diagnosis S/P insertion of tricuspid valve leaflet clip- Primary Mitral valve regurgitation Mitral valve disorders documented in this encounter Advance Directives * Full Code (Latest Code Status on File) Date Activated Date Inactivated Comments 01/18/2025 12:48 PM 01/21/2025 11:46 PM This order reflects the patients wishes and were consensually agreed upon. Question Answer Comments Discussion of Advance Direct catarina occurred with: Not Discussed due to patient's condition Care Teams Research Consultant Relationship Specialty Start Date End Date Zuleima Garcia MD [address] [place] [address] PCP - General Internal Medicine 08/28/24 documented as of this encounter
--- OUTSIDE RECORDS SUMMARY | 2025-02-13 00:41 | External Medical Summary ---
Author Name Unknown Address Unknown Organization : Laboratory Report Ordering Provider Test Date Status DAREN GUTIERREZ 01/27/2025 14:06:11 Final NORMAL (NON-HEPARINIZED) 74- 137 SECONDS
HEPARINIZED 200+ SECONDS
CRITICAL GREATER THAN 1000 SECONDS
null Observation Date Value Abnormality Reference (Units ) Status Kaolin activated time [Units/volume] in Blood 01/27/2025 14:06:11 291 50-1000 (secs) Final Performing Location
--- OUTSIDE RECORDS SUMMARY | 2025-02-13 00:41 | External Medical Summary ---
Author Name Unknown Address Unknown Organization K01:LABORATORY [facility] [place] - [address] [facility] [address] Laboratory Report Ordering Provider Test Date Status BHUPINDER KIRKPATRICK 01/27/2025 09:24:09 Final Observation Date Value Abnormality Reference (Units ) Status SYNC LEUKOCYTES IN BLOOD BY AUTOMATED COUNT 01/27/2025 09:24:09 4.69 4.00-10.80 (K/uL) Final Segs 01/27/2025 09:24:09 57.4 40.0-75.0 (%) Final Lymphs % 01/27/2025 09:24:09 28.6 18.0-42.0 (%) Final Monos 01/27/2025 09:24:09 11.5 Above high normal 1.0-11.0 (%) Final Eosinophils 01/27/2025 09:24:09 1.7 0.0-6.0 (%) Final Basos 01/27/2025 09:24:09 0.6 0.0-2.0 (%) Final Immature Granulocyte, Percent 01/27/2025 09:24:09 0.2 0.0-2.0 (%) Final Absolute Segs 01/27/2025 09:24:09 2.69 1.80-7.70 (K/uL) Final Lymphs, absolute 01/27/2025 09:24:09 1.34 1.00-4.80 (K/ul) Final Monos, Abs 01/27/2025 09:24:09 0.54 0.00-1.10 (K/uL) Final Eos, Abs 01/27/2025 09:24:09 0.08 0.00-0.70 (K/uL) Final Basos, Abs 01/27/2025 09:24:09 0.03 0.00-0.20 (K/uL) Final Immature Granulocytes, Number 01/27/2025 09:24:09 0.01 0.00-0.20 (K/uL) Final Performing Location LABORATORY [facility] [place] - [facility] [address] [facility] [address]
--- OUTSIDE RECORDS SUMMARY | 2025-02-13 00:41 | External Medical Summary ---
Author Name Unknown Address Unknown Organization K01:LABORATORY [facility] [place] - [address] [place] [address] Laboratory Report Ordering Provider Test Date Status RANI MADRIGAL 01/28/2025 04:52:00 Final Observation Date Value Abnormality Reference (Units ) Status Schistocytes 01/28/2025 04:52:00 None Seen None Se en Final Performing Location LABORATORY C - [address] [place] [address]
--- OUTSIDE RECORDS SUMMARY | 2025-02-13 00:41 | External Medical Summary ---
Author Name Unknown Address Unknown Organization : Laboratory Report Ordering Provider Test Date Status DAREN GUTIERREZ 01/27/2025 14:55:18 Final NORMAL (NON-HEPARINIZED) 74- 137 SECONDS
HEPARINIZED 200+ SECONDS
CRITICAL GREATER THAN 1000 SECONDS
null Observation Date Value Abnormality Reference (Units ) Status Kaolin activated time [Units/volume] in Blood 01/27/2025 14:55:18 320 50-1000 (secs) Final Performing Location
--- OUTSIDE RECORDS SUMMARY | 2025-02-13 00:41 | External Medical Summary ---
Author Name Unknown Address Unknown Organization : Laboratory Report Ordering Provider Test Date Status DAREN GUTIERREZ 01/27/2025 15:27:47 Final NORMAL (NON-HEPARINIZED) 74- 137 SECONDS
HEPARINIZED 200+ SECONDS
CRITICAL GREATER THAN 1000 SECONDS
null Observation Date Value Abnormality Reference (Units ) Status Kaolin activated time [Units/volume] in Blood 01/27/2025 15:27:47 291 50-1000 (secs) Final Performing Location
--- OUTSIDE RECORDS SUMMARY | 2025-02-13 00:42 | External Medical Summary | Summary of Care ---
Author Name Unknown Organization [facility] Address [address] [place] [address] Phone [phone] Care Team Providers Care Timber Surveyor Name Role Phone Zuleima Garcia MD Primary Care Provider + Reason for Visit * Reason Onset Date Comments Appointment 01/21/2025 Encounter Details Date Type Department Care Team (Late st Contact Info) Description 01/21/2025 Telephone Hematology/Oncology Treatment, [place] [address] [place] [address] Edin Garcia MD [address] [place] [address] Appointment Allergies Active Allergy Reactions Criticality Noted Date Comments Ezetimibe Low 11/28/2023 General malaise or feeling unwell Famotidine Diarrhea Low 09/13/2024 Prednisone Muscle pain Medium 07/15/2024 Pantoprazole Hives Medium 02/07/2022 GI upset Rosuvastatin Medium 11/28/2023 Muscle aches/pains, fatigue Statins Medium 11/01/2022 myalgia Torsemide Low 08/12/2024 GI symptoms documented as of this encounter (statuses as of 01/21/2025) Medications Ferrous Sulfate 325 (65 Fe) MG [...] as of this encounter (statuses as of 01/21/2025) Active Problems Problem Noted Date Diagnosed Date [...] as of this encounter (statuses as of 01/21/2025) Resolved Problems Problem Noted Date Diagnosed Date Resolved Date HTN, goal below 130/80 08/12/201808/16 documented as of this encounter (statuses as of 01/21/2025) Immunizations Name Administration Dates Next Due COVID-19 mRNA, LNP-s, No Pre serve, 2-Dose Series (SafetyTat) 11/04/2021,02/14/2021,01/24/2021 Covid-19, Mrna, Lnp-s, Pf, B ivalent, 30 Mcg, IM, 12 yrs and above (SafetyTat) 08/25/2022 Pneumococcal Conjugate Vacc, 13 Valent (Prevnar) [...] encounter Miscellaneous Notes * Telephone Encounter - Ekaterina Best OSA [...] Internal Medicine [facility] 200 [facility] [place] [address] Zuleima Garcia MD 200 [facility] [place] [address] 04/01/2025 11:00 AM EDT Office Visit Cardiology, [facility] [address] [place] [address] Daiana Anne CRNP [address] [place] [address] Scheduled Procedures Name Priority Associated Diagnoses Date/Ti [...] D LEVEL ONCE IN A LIFETIME-USE SMARTSET# [id number] Completed 01/12/2023, 06/03/2021, 08/16/2018 Influenza Vaccine (FLU [...] this encounter Medical Devices Implanted Type Area Car Top Bolter Device Identifier Shelf Expiration Date Model / Serial / Lot Cath Thermodilution 6fr - [id number] Implanted:Qty: 1 on 01/18/2025 by Melinda Jin [place] [facility] [employer] DARYL [id number] 06/24/2026 [id number] / / [id number] documented as of this encounter Advance Directives * Full Code (Latest Code Status on File) Date Activated Date Inactivated Comments 01/18/2025 12:48 PM This order re flects the patients wishes and were consensually agreed upon. Question Answer Comments Discussion of Advance Direct catarina occurred with: Not Discussed due to patient's condition Care Teams Timber Surveyor Relationship Specialty Start Date End Date Zuleima Garcia MD [address] [place] [id number] PCP - General Internal Medicine 08/28/24 documented as of this encounter
--- OUTSIDE RECORDS SUMMARY | 2025-02-13 00:42 | External Medical Summary | Summary of Care ---
Author Name Unknown Organization [facility] Address [address] [place] [address] Phone [phone] Care Team Providers Care Batch Operator Name Role Phone Zuleima Garcia MD Primary Care Provider + Reason for Visit * Reason Onset Date Comments Appointment 01/21/2025 Encounter Details Date Type Department Care Team (Late st Contact Info) Description 01/21/2025 Telephone Hematology/Oncology Treatment, [place] [address] [place] [address] Edin Garcia MD 200 [facility] [place] [address] Appointment Allergies Active Allergy Reactions Criticality Noted Date Comments Ezetimibe Low 11/28/2023 General malaise or feeling unwell Famotidine Diarrhea Low 09/13/2024 Prednisone Muscle pain Medium 07/15/2024 Pantoprazole Hives Medium 02/07/2022 GI upset Rosuvastatin Medium 11/28/2023 Muscle aches/pains, fatigue Statins Medium 11/01/2022 myalgia Torsemide Low 08/12/2024 GI symptoms documented as of this encounter (statuses as of 01/25/2025) Medications Ferrous Sulfate 325 (65 Fe) MG [...] as of this encounter (statuses as of 01/25/2025) Active Problems Problem Noted Date Diagnosed Date [...] as of this encounter (statuses as of 01/25/2025) Resolved Problems Problem Noted Date Diagnosed Date Resolved Date HTN, goal below 130/80 08/12/201808/16 documented as of this encounter (statuses as of 01/25/2025) Immunizations Name Administration Dates Next Due COVID-19 mRNA, LNP-s, No Pre serve, 2-Dose Series (Supramed) 11/04/2021,02/14/2021,01/24/2021 Covid-19, Mrna, Lnp-s, Pf, B ivalent, 30 Mcg, IM, 12 yrs and above (Supramed) 08/25/2022 Pneumococcal Conjugate Vacc, 13 Valent (Prevnar) [...] 9:00 AM EST Hospital Encounter [facility], Card[facility] Recovery Suite Waiting Unit, H [address] [place] [address] Nelson Mariee MD [address] [place] [address] 01/27/2025 9:00 AM EST - 01/27/2025 10:00 AM EST Surgery CRS Waiting [facility], Cardiac Recovery Suite Waiting Unit, H [address] [place] [address] Nelson Mariee MD [address] [place] [address] TRANSCATHETER 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; PERCUTANEOUS APPROACH, INCLUDING TRANSSEPTAL PUNCTURE, WHEN PERFORMED 01/27/2025 9:00 AM EST Office Visit Cardiology [facility] [place] [address], [place] [id number] [place], Cardiac Recovery [facility] [address] [place], [place] [address] 04/01/2025 9:20 AM EDT Office Visit General Internal [facility] [place] [address] [facility] [place] [address] Zuleima Garcia MD 200 [facility] [place] [address] 04/01/2025 11:00 AM EDT Office Visit Cardiology, [facility] [address] [facility] [place] [address] Daiana Anne CRNP [address] [place] [address] Scheduled Procedures Name Priority Associated Diagnoses Date/Ti [...] D LEVEL ONCE IN A LIFETIME-USE SMARTSET# [id number] Completed 01/12/2023, 06/03/2021, 08/16/2018 Influenza Vaccine (FLU [...] this encounter Medical Devices Implanted Type Area Vulnerability Assessment Analyst Device Identifier Shelf Expiration Date Model / Serial / Lot Cath Thermodilution 6fr - [id number] Implanted:Qty: 1 on 01/18/2025 by Melinda Jin MD [facility] [employer] DARYL [id number] 06/24/2026 [id number] / / [id number] documented as of this encounter Advance Directives * Full Code (Latest Code Status on File) Date Activated Date Inactivated Comments 01/18/2025 12:48 PM 01/21/2025 11:46 PM This order reflects the patients wishes and were consensually agreed upon. Question Answer Comments Discussion of Advance Direct catarina occurred with: Not Discussed due to patient's condition Care Teams Batch Operator Relationship Specialty Start Date End Date Zuleima Garcia MD [address] [facility] [place] [address] PCP - General Internal Medicine 08/28/24 documented as of this encounter
--- OUTSIDE RECORDS SUMMARY | 2025-02-13 00:42 | External Medical Summary | Summary of Care ---
Author Name Unknown Organization [facility] Address [address] [place] [address] Phone [phone] Care Team Providers Care Member Of The Legislative [employer] Name Role Phone Zuleima Garcia MD Primary Care Provider + Reason for Visit * Reason Onset Date Comments Appointment 01/21/2025 Encounter Details Date Type Department Care Team (Late st Contact Info) Description 01/21/2025 Telephone Hematology/Oncology Treatment, [place] [address] [place] [address] Edin Garcia MD [address] [place] [address] Appointment Allergies Active Allergy Reactions Criticality Noted [...] mRNA, LNP-s, No Pre serve, 2-Dose Series ([employer]) 11/04/2021,02/14/2021,01/24/2021 Covid-19, Mrna, Lnp-s, Pf, B ivalent, 30 Mcg, IM, 12 yrs and above ([employer]) 08/25/2022 Pneumococcal Conjugate Vacc, 13 Valent (Prevnar) [...] AM EDT Office Visit General Internal Medicine [facility] [address] [facility] [place] [address] Zuleima Garcia MD [address] [facility] [place] [address] 04/01/2025 11:00 AM EDT Office Visit Cardiology, [facility] [address] [place] [address] Daiana Anne CRNP [address] [place] [address] Scheduled Procedures Name Priority Associated Diagnoses Date/Ti [...] D LEVEL ONCE IN A LIFETIME-USE SMARTSET# 52563 Completed 01/12/2023, 06/03/2021, 08/16/2018 Influenza Vaccine (FLU [...] this encounter Medical Devices Implanted Type Area Consumer Relations Specialist Device Identifier Shelf Expiration Date Model / Serial / Lot Cath Thermodilution 6fr - [id number] Implanted:Qty: 1 on 01/18/2025 by Melinda Jin [place] [facility] [place] [employer] DARYL [id number] 06/24/2026 [id number] / / [id number] documented as of this encounter Advance Directives * Full Code (Latest Code Status on File) Date Activated Date Inactivated Comments 01/18/2025 12:48 PM This order re flects the patients wishes and were consensually agreed upon. Question Answer Comments Discussion of Advance Direct catarina occurred with: Not Discussed due to patient's condition Care Teams Member Of The Legislative Assembly Relationship Specialty Start Date End Date Zuleima Garcia MD [address] [place] [id number] PCP - General Internal Medicine 08/28/24 documented as of this encounter
--- OUTSIDE RECORDS SUMMARY | 2025-02-13 00:42 | External Medical Summary | Summary of Care ---
Author Name Unknown Organization [facility] Address [address] [place] [address] Phone [phone] Care Team Providers Care Hunting Sales Leader Name Role Phone Zuleima Garcia MD Primary Care Provider + Reason for Visit * Reason Onset Date Comments Appointment 01/21/2025 Encounter Details Date Type Department Care Team (Late st Contact Info) Description 01/21/2025 Telephone Hematology/Oncology Treatment, [place] [address] [place] [address] Edin Garcia MD [address] [place] [address] Appointment Allergies Active Allergy Reactions Criticality Noted [...] mRNA, LNP-s, No Pre serve, 2-Dose Series ([employer]) 11/04/2021,02/14/2021,01/24/2021 Covid-19, Mrna, Lnp-s, Pf, B ivalent, 30 Mcg, IM, 12 yrs and above ([employer]) 08/25/2022 Pneumococcal Conjugate Vacc, 13 Valent (Prevnar) [...] AM EDT Office Visit General Internal Medicine [facility] [address] [facility] [place] [address] Zuleima Garcia MD [address] [facility] [place] [address] 04/01/2025 11:00 AM EDT Office Visit Cardiology, [facility] [address] [place] [address] Daiana Anne CRNP [address] [place] [address] Scheduled Procedures Name Priority Associated Diagnoses Date/Ti [...] D LEVEL ONCE IN A LIFETIME-USE SMARTSET# [id number] Completed 01/12/2023, 06/03/2021, 08/16/2018 Influenza Vaccine (FLU [...] this encounter Medical Devices Implanted Type Area Still Cleaner Tube Device Identifier Shelf Expiration Date Model / Serial / Lot Cath Thermodilution 6fr - [id number] Implanted:Qty: 1 on 01/18/2025 by Melinda Jin MD at [facility] [place] [employer] DARYL [id number] 06/24/2026 [id number] / / [id number] documented as of this encounter Advance Directives * Full Code (Latest Code Status on File) Date Activated Date Inactivated Comments 01/18/2025 12:48 PM This order re flects the patients wishes and were consensually agreed upon. Question Answer Comments Discussion of Advance Direct catarina occurred with: Not Discussed due to patient's condition Care Teams Hunting Sales Leader Relationship Specialty Start Date End Date Zuleima Garcia MD [address] [place] [id number] PCP - General Internal Medicine 08/28/24 documented as of this encounter
--- OUTSIDE RECORDS SUMMARY | 2025-02-13 00:42 | External Medical Summary | Summary of Care ---
Author Name Unknown Organization [facility] Address [address] [place] [address] Phone [phone] Care Team Providers Care Contract Admin Name Role Phone Zuleima Garcia MD Primary Care Provider + Reason for Visit * Auth/Cert Specialty Diagnoses / Procedures Referred By Kathia bingham Referred To Contact Diagnoses Severe mitral regurgitation Severe mitral regurgitation [I34.0] Procedures CORONARY ANGIOGRAPHY W/RIGHT+LEFT CATH CORONARY ANGIOGRAPHY W/RIGHT+LEFT CATH Nelson Mariee MD [address] [place] [address] Phone: tel: fax: CRS Waiting [facility], Cardiac Recovery Suite Waiting Unit, [address] [place] [address] Phone: tel: Referral ID Status Reason Start Date Expiration Date Visits Re quested Visits Authorized [id number] Encounter Details Date Type Department Care Team (Late st Contact Info) Description 01/18/2025 9:51 AM EST - 01/21/2025 7:46 PM EST Hospital Encounter [facility] 8, [facility] Advanced Medicine 8th Floor [address] [place] [address] Melinda Jin MD [address] [place] [address] Kassi Dodson MD [address] [place] [address] BeatrisThomas [place], DO [address] [place] [address] Pt Handout (on AVS) Discharge Disposition: Home - Self Care Allergies Active Allergy Reactions Criticality Noted Date Comments Ezetimibe Low 11/28/2023 General malaise or feeling unwell Famotidine Diarrhea Low 09/13/2024 Prednisone Muscle pain Medium 07/15/2024 Pantoprazole Hives Medium 02/07/2022 GI upset Rosuvastatin Medium 11/28/2023 Muscle aches/pains, fatigue Statins Medium 11/01/2022 myalgia Torsemide Low 08/12/2024 GI symptoms documented as of this encounter (statuses as of 01/22/2025) Medications Ferrous Sulfate 325 (65 Fe) MG [...] as of this encounter (statuses as of 01/22/2025) Active Problems Problem Noted Date Diagnosed Date [...] as of this encounter (statuses as of 01/22/2025) Resolved Problems Problem Noted Date Diagnosed Date Resolved Date HTN, goal below 130/80 08/12/201808/16 documented as of this encounter (statuses as of 01/22/2025) Immunizations Name Administration Dates Next Due COVID-19 mRNA, LNP-s, No Pre serve, 2-Dose Series ([employer]) 11/04/2021,02/14/2021,01/24/2021 Covid-19, Mrna, Lnp-s, Pf, B ivalent, 30 Mcg, IM, 12 yrs and above ([employer]ft) 08/25/2022 Pneumococcal Conjugate Vacc, 13 Valent (Prevnar) [...] No 08/05/2024 Does the household have a [employer] [place] [employer] source of income? (Household - for ages [...] AM EDT documented as of this encounter Last Filed Vital Signs Vital Sign Reading Time Taken Comments Blood Pressure 117/77 01/21/2025 2:35 PM EST Pulse 63 01/21/2025 2:35 PM EST Temperature 36.2 C (97.2 F) 01/21/2025 2:35 PM ES T Respiratory Rate 16 01/21/2025 2:35 PM EST Oxygen Saturation 100% 01/21/2025 2:35 PM EST Inhaled Oxygen Concentration - - Weight 56.3 kg (124 lb 3.2 oz) 01/19/2025 5:59 A M EST Height 162.6 cm (5' 4") 01/19/2025 3:09 AM EST Body Mass Index 21.32 01/19/2025 3:09 AM EST documented in this encounter Functional Status * Are you deaf or do you have serious difficulty hearing? Answer Date of Assessment Author No 01/18/2025 8:15 PM EST Sushila Thorne RN * Are you blind or do you have serious difficulty seeing, even when wearing glasses? Answer Date of Assessment Author No 01/18/2025 8:15 PM EST Sushila Thorne RN * Do you have serious difficulty walking or climbing stairs? (5 years old or older) Answer Date of Assessment Author Yes 01/18/2025 8:15 PM EST Sushial Thorne RN * Do you have difficulty dressing or bathing? (5 years old or older) Answer Date of Assessment Author No 01/18/2025 8:15 PM EST Sushila Thorne RN * Because of a physical, mental, [...] Sushila Anderson RN documented in this encounter Discharge Instructions * Discharge Instr - AVS* Gina Cantrell MD - 01/20/2025 2:17 PM EST Discharge Date: 01/21/[address] Dodson of the Department of Cardiology at [phone] during business hours forany questions or test results. For after-hours emergencies call [phone] and have your doctor paged. Scheduling services is available between the hours of 8:00 am and 9:00 pm by calling . For routine questions, your [facility] Cardiology Team prefers the use of [employer]. [employer] is an online internet tool to help you meet your health care needs quickly by providing a secure, confidential way to view your health records and communicate with your [facility] Cardiology Team. To sign up for [employer] go to [email or web address], "Click" Burns Now on the right side of the screen and complete the user registration information. The information below provides you with the instructions and the list of medications you need to betaking following discharge from the hospital. If you have any questions, please ask before leaving.Please carry this letter with you when you see your doctor in the clinic. If you have questions, you can reach us at the numbers above. Brief summary of your inpatient care: You were admitted for inpatient surgical planning. You underwent a CT of your valves. You also underwent evaluation for your anemia and possible multiple myelomawith the hematology team. You were recommended for bone marrow biopsy and opted to defer this untilafter mitral valve management. You were seen by cardiac surgery and Interventional Cardiology to discuss risks and benefits of valve surgery versus transcatheter approach and you were stable for discharge home. Your primary diagnosis at discharge was severe mitral regurgitation, anemia, IgG gammopathy Your doctors during this hospitalization included: Dr. Dodson of the Department of Cardiology Dr. Garfield Ray of Dept of Hematology Inpatient test results pending: SPEP, 24 hour urine protein electrophoresis Operations & Procedures: None Complications: none significant Advance Directive Documented: Advance Directive Does the Patient have an Advance Directive? No Diet: Heart healthy diet, 2 gram sodium diet Activity: as tolerated Date you may return to work or school: N/A Laboratory tests: N/A A return appointment was requested with your primary care doctor within 1-2 weeks. A return appointment was requested with Hematology within 1 month. You will also have follow up with Cardiology. Youwill be contacted to schedule these. Please call Dr. Stone's office if you decide you wish to pursue surgical valve repair. MEDICATION CHANGES: No medication changes. Please continue taking all other medications as previously prescribed. documented in this encounter H&P Notes * Mallory Melara PA-C - 01/18/2025 10:27 AM EST HISTORY & PHYSICAL INTERVAL NOTE - Cardiology Service [address] [address] History and Physical Update: Name: Hanh Roman Location: CATH/Cath Date: 01/18/2025 Time: 10:27 AM DATE OF HISTORY AND PHYSICAL: 01/15/25 REFERRED BY: Kodi Chief Complaint: severe MR I have reviewed the H&P previously performed and examined the patient today. There are no new findings noted. -Bleeding +Upcoming surgery severe MR not seen by CVTS yet Physical Examination: Ht 1.626 m (5' 4") | Wt 60.8 kg (134 lb) | BMI 23.00 kg/m | BSA 1.66 m Gen: 74 year old female NAD alert oriented X3 Cardiac: irregularly irregular with a 3/6 systolic murmur across the precordium Lungs: normal respiratory effort, lungs clear to auscultation and percussion Right Radial pulse 2+ Left Radial pulse 2+ Right Femoral pulse 2+ Right Femoral Bruit no Right DP pulse 2+ Right PT pulse 1+ Left Femoral pulse 2+ Left Femoral Bruit no Left DP pulse 2+ Left PT pulse 1+ Abd: soft non-tender + BS Ext: no edema IV Contrast Allergy: no Contraindications to dual anti-platelet therapy: Yes - not seen by CVTS for severe MR History of anemia: Yes ASA: 325 mg of ASA given if not on chronic daily ASA (ASA TO BE CHEWED IF GIVEN JUST PRIOR TO CATH) Anticoagulation: Yes - Eliquis: Last Dose 01/17/25 am Labs reviewed as indicated below: 4.43 3.54 10.8 Low 34.4 Low 97.2 30.5 31.4 14.6 143 10.2 0 Pre-Cath Labs: PENDING Cosigned by Melinda Jin MD at 01/18/2025 11:39 AM EST * Julian Hooper CRNP - 01/15/2025 12:36 PM EST Images from the original note were not included. GENERAL HISTORY & PHYSICAL EXAMINATION - Cardiology [address] [address] Name: Hanh Roman Location: Room/bed info not found Date: 01/15/2025 Time: 12:37 PM PRESENTING PROBLEM: CHF and valvular heart disease HPI: [facility] 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 A cardiac catheterization revealed normal coronaries in 2017. History of QT prolongation and paroxysmal atrial fibrillation, hypertension, dyslipidemia with statin and ezetimibe intolerance. Patient has had multiple hospitalizations in the past year. Acute heart failure exacerbations. She has had worsening shortness of breath and edema with decrease in activity tolerance. Orthopneic, sleeping propped with several pillows. Patient has undergone a transesophageal echocardiogram and followed up with our valve team (Dr. Mariee). JUAN JOSE showed severe MR. Options are being considered for intervention. Further information is needed thus scheduled for right and left heart cath. PAST MEDICAL HISTORY: Past Medical History: Diagnosis Date Hyperlipidemia LDL goal <70 Paroxysmal A-fib (HCC) ACTIVE PROBLEMS: Patient Active Problem List Diagnosis Date Noted Lytic lesion of bone on x-ray [M89.9] 07/23/2024 Senile osteoporosis [M81.0] 07/23/2024 Pulmonary edema cardiac cause (HCC) [I50.1] 07/23/2024 Hyperlipidemia LDL goal <70 [E78.5] 08/19/2023 H/O mitral valve repair [Z98.890] 12/08/2019 Hx of tricuspid valve repair [Z98.890] 12/08/2019 Paroxysmal A-fib (HCC) [I48.0] 08/15/2019 Hypertension goal BP (blood pressure) < 130/80 [I10] PAST SURGICAL HISTORY: Past Surgical History: Procedure Laterality Date COLONOSCOPY W/ BIOPSY (RECTUM) 2014 negative COLONOSCOPY, DIAGNOSTIC (RECTUM) 08/07/2021 normal, repeat 5 yrs / COLONOSCOPY FLEXIBLE PROXIMAL DIAGNOSTIC performed by Binh Calzada MD at [facility] EGD, FLEXIBLE, DIAGNOSTIC 08/07/2021 inflammatory cells on bx / ESOPHAGOGASTRODUODENOSCOPY (EGD), FLEXIBLE, TRANSORAL, DIAGNOSTIC performed by Binh Calzada MD at [facility] EGD, FLEXIBLE, DIAGNOSTIC 08/11/2021 erosive gastropathy, duodenal ulcer / INPT [facility] REMOVE CATARACT, INSERT LENS PROSTH REPAIR TRICUSPID VALVE 11/09/2017 [facility] REPAIR TRICUSPID VALVE 11/09/2017 [facility] FAMILY HISTORY: Family History Problem Relation Name Age of Onset Stroke Mother 52 Heart attack Father 63 Heart attack Sister SOCIAL HISTORY: Social History Tobacco Use Smoking status: Never Smokeless tobacco: Never Vaping Use Vaping status: Never Used Substance Use Topics Alcohol use: No Drug use: No Review of patient's allergies indicates: Allergen Reactions Famotidine Diarrhea Prednisone Muscle pain Ezetimibe General malaise or feeling unwell Protonix [Pantoprazole] Hives GI upset Rosuvastatin Muscle aches/pains, fatigue Statins myalgia Torsemide GI symptoms CURRENT HOSPITAL MEDICATIONS: Note that completed medications (per MAR) continue to display for 24 hours. Ordered medications to be given in the future also display. No current facility-administered medications for this encounter. Current Outpatient Medications Medication Digoxin 125 MCG Oral Tablet (Lanoxin) Furosemide 20 MG Oral Tablet (Lasix) DIURETIC TITRATION PLAN Metoprolol Succinate ER 50 MG Oral Tablet Extended Release 24 Hour (toPROL XL) amLODIPine Besylate 5 MG Oral Tablet (Norvasc) Apixaban 5 MG Oral Tablet (Eliquis) Caltrate 600+D Plus Minerals 600-800 MG-UNIT Oral Tablet Chewable Vitamin B-12 500 MCG Oral Tablet (vitamin B-12) Advanced Probiotic Oral Capsule Magnesium 100 MG Oral Tablet Ferrous Sulfate 325 (65 Fe) MG Oral Tablet Delayed Release ALLERGIES: Famotidine, Prednisone, Ezetimibe, Protonix [pantoprazole], Rosuvastatin, Statins, and Torsemide ROS: To be completed the day of the procedure. PHYSICAL EXAMINATION: Vital signs and physical exam to be completed the day of the procedure. LABS: Labs reviewed as indicated below: Latest Reference Range & Units 01/05/25 09:33 SODIUM 135 - 146 mmol/L 135 POTASSIUM 3.5 - 5.1 mmol/L 5.0 CHLORIDE 98 - 107 mmol/L 98 CO2 22 - 32 mmol/L 26 BUN 6 - 20 mg/dL 8 CREATININE 0.5 - 1.0 mg/dL 0.7 EGFR >=60 mL/min >90 ANION GAP 7 - 15 mmol/L 11 GLUCOSE 70 - 120 mg/dL 84 CALCIUM 8.4 - 10.2 mg/dL 10.3 (H) (H): Data is abnormally high Latest Reference Range & Units 09/30/24 07:11 10/01/24 15:02 WBC 4.00 - 10.80 K/uL 4.70 RBC 3.85 - 5.15 M/uL 3.05 HGB 12.0 - 15.3 g/dL 9.4 (L) HCT 36.0 - 45.2 % 29.3 (L) MCV 81.5 - 97.5 fL 96.1 MCH 27.0 - 34.0 pg 30.8 MCHC 32.0 - 36.0 g/dL 32.1 RDW 11.5 - 15.5 % 13.6 PLT 140 - 400 K/uL 179 MPV 6.6 - 11.1 fL 10.3 IRON SCREEN, INCLUDING TIBC Rpt ! Iron 33 - 151 ug/dL 39 Iron Binding Capacity 250 - 425 ug/dL 303 Transferrin Saturation Percent 15 - 55 % 13 (L) Ferritin 13 - 150 ng/mL 147 (L): Data is abnormally low !: Data is abnormal Rpt: View report in Results Review for more information Latest Reference Range & Units 11/06/24 07:12 Albumin 3.8 - 5.0 g/dL 3.3 (L) AST 10 - 35 U/L 16 ALT 10 - 35 U/L 14 Alkaline Phosphatase 35 - 130 U/L 59 Bilirubin, Total <=1.2 mg/dL 0.5 (L): Data is abnormally low PERTINENT TESTIN12/03/2024 JUAN JOSE: 10/06/2024 TTE: Interpretation Summary The qualitative LV ejection fraction is 60-64% (normal). The LV wall thickness is mildly increased (concentric). The left atrium is severely enlarged (>48 ml/m^2,). The aortic valve has three leaflets. Moderate aortic valve regurgitation is present. There is a mitral valve annuloplasty ring present. There is evidence of prior mitral valve repair. Severe mitral regurgitation is present. Mitral stenosis is absent. Mitral valve leaflets appear severely thickened and redundant. Chordal systolic anterior motion is present. Small mobile echodensity on the atrial surface of the posterior mitral valve leaflet may represent ruptured suture/perforation of prior mitral valve repair. Can not exclude vegetation/endocarditis. There is a tricuspid valve annuloplasty ring present. Trace tricuspid regurgitation. There is no evidence of pulmonary hypertension. 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 JUAN JOSE severe MVP and evidence of ruptured chordae and flail segment; severe mitral regurgitation. Pursuing further evaluation to determine next steps, intervention. 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 Date of Procedure: 01/18/2025 Pre-op Diagnosis: Valve disease Post-op Diagnosis: No or minimal coronary artery disease Procedure: Coronary angiography and Right heart cath Physician Credentialing Specialist: Dr. Jin Whale Trainer(s): Anesthesia: Monitored local anesthesia with sedation Additional Findings: Coronary disease - hemodynamically insignificant PW: 25 PA 61/20 RV 56/8 RA 10 MVO 48 Access: Right radial, Left radial, and Right AC vein Hemostasis: TR Band and Manual Pressure Complications: none Condition of patient: Good Post Sedation Evaluation: Cardiovascular status: acceptable Level of consciousness: awake and alert Airway patency: patent Distress - NAD Hydration status - well hydrated Nausea/vomiting - not present Recommendations: No CAD LOw out put Elevated wedge Melinda Jin MD 01/18/2025 11:43 AM documented in this encounter Consult Notes * Isha Rincon MD - 01/20/2025 6:42 PM ESTAssociated Order(s): HEMATOLOGY CONSULT IP Hematology New Consult Note PATIENT NAME: Hanh Roman DATE OF SERVICE: 01/20/2025 Room/Bed: [place] [address]/A Primary Care Physician: Zuleima Garcia MD Consulting Physician: Kassi Dodson MD Reason for Consult: Multiple myeloma evaluation HISTORY OF PRESENT ILLNESS Hanh Roman is a 74 year old female with a past medical history of severe MV regurgitation s/p MV annuloplasty, TV annuloplasty, HFpEF, paroxysmal Afib on Eliquis, QT prolongation, HTN, DLD, duodenal ulcer who presents for further evaluation of severe MR with flail MV. Cardiothoracic surgery following with consideration for redo surgery with mitral valve replacement versus transcatheter mitral valve replacement. She reports that since October to November, she has had a decline in her performance status due to significant shortness of breath with mild exertion. She is currently unable to take more than 10 steps without significant dyspnea. Unable to go up the stairs anymore. Not able to help out in the house which is bothering her. She denies any associated chest pain. She endorses a history of lower back pain that has presently resolved. She had bleeding with the cardiac catheterization as she was on Eliquis but otherwise denies any other significant bleeding episodes. She denies any other back or bony pain. She denies any fever, chills, sweats, unintentional weight loss, chest pain, shortness of breath, palpitation, nausea, vomiting, abdominal pain, diarrhea/constipation. Visit Diagnoses: ICD-10-CM 1. SOB (shortness of breath) R06.02 2. Chest pain R07.9 Past Medical History: Diagnosis Date Hyperlipidemia LDL goal <70 Paroxysmal A-fib (HCC) Surgical History: Past Surgical History: Procedure Laterality Date COLONOSCOPY W/ BIOPSY (RECTUM) 2014 negative COLONOSCOPY, DIAGNOSTIC (RECTUM) 08/07/2021 normal, repeat 5 yrs / COLONOSCOPY FLEXIBLE PROXIMAL DIAGNOSTIC performed by Binh Calzada MD at [facility] EGD, FLEXIBLE, DIAGNOSTIC 08/07/2021 inflammatory cells on bx / ESOPHAGOGASTRODUODENOSCOPY (EGD), FLEXIBLE, TRANSORAL, DIAGNOSTIC performed by Binh Calzada MD at [facility] EGD, FLEXIBLE, DIAGNOSTIC 08/11/2021 erosive gastropathy, duodenal ulcer / INPT [facility] REMOVE CATARACT, INSERT LENS PROSTH REPAIR TRICUSPID VALVE 11/09/2017 [facility] REPAIR TRICUSPID VALVE 11/09/2017 [facility] Medications: Acetaminophen (Tylenol) tab 650 mg amLODIPine (Norvasc) tab 2.5 mg Digoxin (Lanoxin) tab 125 mcg Furosemide (Lasix) tab 40 mg hEParin 1000 UNIT/ML inj 1,800 Units hEParin 1000 UNIT/ML inj 900 Units hEParin 25,000 units in 250 mL (aPTT-Cardiac) infusion melatonin tab 6 mg metoprolol succinate XL (toPROL XL) tab 50 mg Allergies: Prednisone, Protonix [pantoprazole], Rosuvastatin, Statins, Ezetimibe, Famotidine, and Torsemide Social History: Social History Socioeconomic History Marital status: Tobacco Use Smoking status: Never Smokeless tobacco: Never Vaping Use Vaping status: Never Used Substance and Sexual Activity Alcohol use: No Drug use: No Sexual activity: Not Currently Social Needs Financial Resource Strain: Low Risk (08/05/2024) Financial Resource Strain Do you have any trouble paying for your medications, or do you think you might in the future? (Adult - for ages 18 years and over): No Food Insecurity: No Food Insecurity (08/05/2024) Food Insecurity Worried About Running Out of Food in the Last Year: Never true Ran Out of Food in the Last Year: Never true Do you need food for this week? (Adult - for ages 18 years and over): No Transportation Needs: No Transportation Needs (08/05/2024) Transportation Needs Has lack of transportation kept you from medical appointments, meetings, work, or from getting things needed for daily living? Check all that apply. (Adult - for ages 18 years and over): No Social Connections: Socially Integrated (08/05/2024) Social Connections How often do you feel lonely or isolated from those around you? (Adult - for ages 18 years and over): Never Housing Stability: Low Risk (08/05/2024) Housing Stability Do you currently live in a chcf or have no steady place to sleep at night? (Adult - for ages 18 years and over): No Are you homeless or worried that you might be in the future? (Adult - for ages 18 years and over): No Family History: family history includes Heart attack in her sister; Heart attack (age of onset: 63) in her father; Stroke (age of onset: 52) in her mother. PMH, PSH, Allergies, Social history, Family history reviewed. Review of Systems Constitutional: Negative for appetite change, chills, diaphoresis, fatigue, fever and unexpected weight change. HENT: Negative for lump/mass. Respiratory: Positive for shortness of breath. Negative for cough and wheezing. Cardiovascular: Negative for chest pain, leg swelling and palpitations. Gastrointestinal: Negative for abdominal pain, constipation, diarrhea, nausea and vomiting. Genitourinary: Negative for difficulty urinating. Musculoskeletal: Negative for arthralgias and back pain. Objective : Blood pressure 131/82, pulse 68, temperature 36.2 C (97.2 F), temperature source Tympanic, resp. rate 18, height 1.626 m (5' 4"), weight 56.3 kg (124 lb 3.2 oz), SpO2 100%, not currently . Intake/Output Summary (Last 24 hours) at 01/20/2025 0931 Last data filed at 01/20/2025 0700 Gross per 24 hour Intake 320.89 ml Output -- Net 320.89 ml Physical Exam Vitals and nursing note reviewed. Constitutional: General: She is not in acute distress. Appearance: Normal appearance. She is not ill-appearing or diaphoretic. HENT: Head: Normocephalic and atraumatic. Eyes: General: No scleral icterus. Conjunctiva/sclera: Conjunctivae normal. Cardiovascular: Rate and Rhythm: Normal rate and regular rhythm. Heart sounds: Murmur heard. Pulmonary: Effort: Pulmonary effort is normal. Breath sounds: Normal breath sounds. No wheezing, rhonchi or rales. Abdominal: General: There is no distension. Palpations: Abdomen is soft. There is no mass. Tenderness: There is no abdominal tenderness. Musculoskeletal: Right lower leg: No edema. Left lower leg: No edema. Lymphadenopathy: Cervical: No cervical adenopathy. Skin: General: Skin is warm and dry. Findings: No bruising. Neurological: Mental Status: She is alert and oriented to person, place, and time. Mental status is at baseline. Psychiatric: Mood and Affect: Mood normal. Test Results: reviewed. Lab Results Component Value Date/Time WBC 3.52 (L) 01/20/2025 05:19 AM WBC 3.62 (L) 01/19/2025 04:57 AM WBC 4.58 08/16/2018 08:06 AM WBC, URINE - [facility] 0-2 03/04/2024 12:56 PM WBC, URINE - [facility] 0-2 06/03/2021 09:27 AM Lab Results Component Value Date/Time HGB 9.9 (L) 01/20/2025 05:19 AM HGB 9.7 (L) 01/19/2025 04:57 AM HGB 11.3 (A) 05/01/2019 12:00 AM HGB 11.3 (L) 08/16/2018 08:06 AM HGB 11.4 11/07/2017 12:00 AM Lab Results Component Value Date/Time PLT 132 (L) 01/20/2025 05:19 AM PLT 133 (L) 01/19/2025 04:57 AM PLT 221 08/16/2018 08:06 AM No components found for: "ABS. NEUTS" Lab Results Component Value Date/Time CREATININE - [facility] 0.6 01/20/2025 05:19 AM CREATININE - [facility] 0.6 01/19/2025 04:57 AM CREATININE - [facility] 0.8 06/21/2020 07:13 AM CREATININE - [facility] 0.61 05/01/2019 12:00 AM CREATININE - [facility] 0.7 08/16/2018 08:06 AM CREATININE, RANDOM URINE - [facility] 38 11/03/2022 08:27 AM CREATININE, RANDOM URINE - [facility] 71 06/21/2020 07:21 AM Assessment/Recommendations: Hanh Roman is a 74 year old female with a past medical history of severe MV regurgitation s/p MV annuloplasty, TV annuloplasty, HFpEF, paroxysmal Afib on Eliquis, QT prolongation, HTN, DLD, duodenal ulcer who presents for further evaluation of severe MR with flail MV. Severe mitral valve IgG kappa gammopathy. Mild leukopenia, with neutropenia (1600) - acute Normocytic anemia - chronic Thrombocytopenia, acute She has a history of IgG kappa gammopathy with elevated serum free light chain ratio 44, IgG 2530 and SPEP in process. CTA chest abdomen and pelvis 01/19/2025 with no osseous abnormalities although she had a CT chest from an outside hospital 07/15/2024 that commented on a right 9th rib lytic lesion.We will review with Radiology for clarification. However, with the paraprotein labs, she has a morethan 60% chance of having multiple myeloma. We discussed concern for multiple myeloma with the patient and daughter at bedside and reviewed theneed for bone marrow biopsy for diagnosis. She expressed understanding and is aware of this diseaseprocess as her brother had MGUS followed by smoldering myeloma that transformed into multiple myeloma. She is hesitant to pursue biopsy workup right now and would prefer to get her cardiac issues resolved first. Fortunately, she has stable serum free light chain and quantitative immunoglobulins with no evidence of renal dysfunction. She does however have mild pancytopenia that could be related to underlying bone marrow disorder given hypoproliferative retic index in the setting of adequate B12, folic acid and iron studies. Plan: Outpatient follow-up with Hematology that discussions on evaluation and management of plasma disorder. Please place consult on discharge The patient is in agreement with the plan and all questions were answered. Patient care discussed with staff, Dr. Rincon. Garfield Ray MD Hematology and Oncology, PGY-6 [facility] I saw and evaluated the patient 01/20/25. I have reviewed the resident/fellow physician note and agree. I spent a total of 65 minutes coordinating, documenting, and providing care for this patient excluding time spent in the performance of separately billed services or time spent by another provider/QHP. Lengthy discussion of patient's disease - she and her daughter have a good understanding of MGUS/Smoldering myeloma/MM spectrum. Reviewed potential treatment in broad strokes if disease is diagnosed.She prefers to delay workup further until after heart surgery. Will arrange follow up with Dr Garcia. Isha Rincon MD Hematology * Wanda Montiel PA-C - 01/18/2025 2:43 PM ESTAssociated Order(s): CARDIAC SURGERY CONSULT IP Images from the original note were not included. Consult - [facility] Name: Hanh Roman Date: 01/18/2025 Time: 14:45 Pre charting done by Barrington Carnes PA-C in efficiency of seeing patient and updated by Wanda Montiel PA-C REFERRING PHYSICIAN: Nelson Mariee MD, referring Dr. Ceballos PCP: Zuleima Garcia MD HEEL WHEELER: Kodi HPI: Hanh Roman is a 74 year old female who presents with documented failed MV repair with worsening LAWRENCE/SOB ,earlier fatigue and afib. She had MVr,TVr,maze and RODOLFO clip in 2017. She was scheduled to be seen in our clinic tomorrow for MR but is a direct admit after right and left cardiac cath . Today's cath without CAD , + pulm HTN 61/20, low cardiac outpt. She is followed by Dr. Stevens and would like to proceed with TMVR Per cardiology note of 12/16/2024 Patient has had multiple recent hospitalizations in the past 6 months. She has had increased lower extremity edema. Significant worsening in her breathing, can't take more than 4 steps without being tuckered out. She has very poor sleep quality, sleeps propped up on several pillows. No longer able to lay flat due to dyspnea. Denies chest pain or pressure. Endorses rare palpitations, but seems to be better controlled with Digoxin. Daughter endorses that her heart rate burst with even the slightest movement. They utilize [employer] haris. Denies any pre-syncope or syncope. Endorses fatigue, but no daytime naps. Presentation associated with endocarditis/bacteremia: No Patient has PMH of: recurrent MV disease s/p MVRepair,TVrepair,maze and RODOLFO 2016, htn,DLD-intolerance to statin and Zetia, Hx of UGI bleed 2020 of duodenum, hx of afib, QTc prolongation, PAF Drew Heart Failure Classification: Class III (Moderate) Prior to Admission medications Medication Sig Last Dose Discont. Digoxin 125 MCG Oral Tablet (Lanoxin) Take 1 Tablet by mouth in the morning. 01/18/2025 Morning Furosemide 20 MG Oral Tablet (Lasix) Two tablets by mouth daily with an extra dose as needed for weight gain or worsening leg swelling 01/17/2025 Metoprolol Succinate ER 50 MG Oral Tablet Extended Release 24 Hour (toPROL XL) Take 1 Tablet by mouth in the morning and 1 Tablet before bedtime. 01/18/2025 Morning amLODIPine Besylate 5 MG Oral Tablet (Norvasc) Take 0.5 Tablets by mouth in the morning. 01/17/2025 Apixaban 5 MG Oral Tablet (Eliquis) Take 1 Tablet by mouth in the morning and 1 Tablet before bedtime. 01/17/2025 Evening Caltrate 600+D Plus Minerals 600-800 MG-UNIT Oral Tablet Chewable Take 1 Tablet by mouth every morning. 01/17/2025 Vitamin B-12 500 MCG Oral Tablet (vitamin B-12) Take 1 Tablet by mouth in the morning. 01/17/2025 Advanced Probiotic Oral Capsule Take 1 Tablet by mouth in the morning. 01/17/2025 Magnesium 100 MG Oral Tablet Take 1 Tablet by mouth every evening. 01/17/2025 Ferrous Sulfate 325 (65 Fe) MG Oral Tablet Delayed Release Take 1 Tablet by mouth in the morning. In the morning.. 01/17/2025 DIURETIC TITRATION PLAN If no improvement on day 3, contact heart failure managing provider. Current Medications No current facility-administered medications for this visit. No current outpatient medications on file. Facility-Administered Medications Ordered in Other Visits Medication Dose Route Frequency Provider Last Rate Last Admin NSS infusion Intravenous Continuous Julian Hooper CRNP 100 mL/hr at 01/18/25 1030 New Bag at 01/18/25 1030 ALLERGIES: Allergies Prednisone, Protonix [pantoprazole], Rosuvastatin, Statins, Ezetimibe, Famotidine, and Torsemide PAST MEDICAL HISTORY: Past Medical History Past Medical History: Diagnosis Date Hyperlipidemia LDL goal <70 Paroxysmal A-fib (HCC) PAST SURGICAL HISTORY: Past Surgical History Past Surgical History: Procedure Laterality Date COLONOSCOPY W/ BIOPSY (RECTUM) 2014 negative COLONOSCOPY, DIAGNOSTIC (RECTUM) 08/07/2021 normal, repeat 5 yrs / COLONOSCOPY FLEXIBLE PROXIMAL DIAGNOSTIC performed by Binh Calzada MD at [facility] EGD, FLEXIBLE, DIAGNOSTIC 08/07/2021 inflammatory cells on bx / ESOPHAGOGASTRODUODENOSCOPY (EGD), FLEXIBLE, TRANSORAL, DIAGNOSTIC performed by Binh Calzada MD at [facility] EGD, FLEXIBLE, DIAGNOSTIC 08/11/2021 erosive gastropathy, duodenal ulcer / INPT [facility] REMOVE CATARACT, INSERT LENS PROSTH REPAIR TRICUSPID VALVE 11/09/2017 [facility] REPAIR TRICUSPID VALVE 11/09/2017 [facility] Hx of vein harvest or stripping?: no SOCIAL HISTORY: Drug Use: never Social History Social History Tobacco Use Smoking status: Never Smokeless tobacco: Never Vaping Use Vaping status: Never Used Substance Use Topics Alcohol use: No Drug use: No FAMILY HISTORY: Family History Family History Problem Relation Name Age of Onset Stroke Mother 52 Heart attack Father 63 Heart attack Sister Family History of premature CAD: no REVIEW OF SYSTEMS: Constitutional: denies weight loss, denies fever, denies shaking chills Eyes: previous cataract surgery, denies double vision , denies blurred vision , denies amaurosis fugax Ear, nose and throat: denies decreased hearing, denies trouble swallowing, denies epistaxis Dental: last dental visit cleared by dentist 2 weeks ago Cardiac: denies chest pain, denies palpitations Vascular: no claudication Respiratory: see HPI Gastrointestinal: denies dysphagia, denies nausea, denies vomiting Genitourinary: denies dysuria, denies nocturia, denies hematuria Musculoskeletal: knee pain Psychiatric: denies depression, denies anxiety, was never formerly hospitalized Skin: denies rash, denies non-healing ulcers, denies jaundice Neurologic: denies trouble speaking, denies amaurosis fugax, denies syncope Endocrine: denies constant thirst, denies constant hunger, denies constant urinating Hematologic / Lymphatic: denies blood clotting problems, denies anemia, denies bruising Immunologic: denies exposure to hepatitis, denies exposure to TB CARDIOTHORACIC COMPLETE PHYSICAL EXAM: Most Recent Vital Signs: BP 138/74 | Pulse 57 | Temp 35.9 C (96.6 F) (Tympanic) | Resp 14 | Ht 1.626 m (5' 4") | Wt 60.8kg (134 lb) | SpO2 100% | BMI 23.00 kg/m | BSA 1.66 m PHYSICAL EXAM: General: no acute distress Head: normocephalic, no masses, lesions, tenderness or abnormalities Eyes: conjunctiva are pink and non-injected, sclera clear Nose: normal Teeth: teeth present without obvious periodontal disease Neck: supple, no adenopathy, no bruits, thyroid normal size, non-tender, without nodularity, normaljugular venous pulse, no hepatojugular reflux Chest: normal shape, normal respiratory effort Lungs: clear to auscultation and percussion and bibasilar crackles Cardiac Exam: holosystolic murmur heard best at left sternal border Pulses: The following pulses are normal: carotids, femorals, abdominal aorta, and TR bands on both radials, unable to assess Abdomen: abdomen soft, non-tender, no abnormal masses, and no hepatosplenomegaly Extremities: no cyanosis and trace Skin: skin color, texture, turgor are normal, no rashes or significant lesions Neuro: grossly normal exam Veins GSV appears adequate bilaterally STUDIES: Cath 01/18 Coronary disease - hemodynamically insignificant PW: 25 PA 61/20 RV 56/8 RA 10 MVO 48 JUAN JOSE 12/03/2024 [facility], preformed by Dr. Garber 10/06/2024 TTE: Interpretation Summary The qualitative LV ejection fraction is 60-64% (normal). The LV wall thickness is mildly increased (concentric). The left atrium is severely enlarged (>48 ml/m^2,). The aortic valve has three leaflets. Moderate aortic valve regurgitation is present. There is a mitral valve annuloplasty ring present. There is evidence of prior mitral valve repair. Severe mitral regurgitation is present. Mitral stenosis is absent. Mitral valve leaflets appear severely thickened and redundant. Chordal systolic anterior motion is present. Small mobile echodensity on the atrial surface of the posterior mitral valve leaflet may represent ruptured suture/perforation of prior mitral valve repair. Can not exclude vegetation/endocarditis. There is a tricuspid valve annuloplasty ring present. Trace tricuspid regurgitation. There is no evidence of pulmonary hypertension. EKG 11/19/2024 CONCLUSIONS: Atrial fibrillation Marked ST abnormality, possible inferior subendocardial injury Abnormal ECG When compared with ECG of 17-Aug-2024 11:20, Atrial fibrillation has replaced Atrial flutter Ventricular Rate: 89 Society of Thoracic Surgeons' Risk Score: STS site IMPRESSION: 74 y/o female with Severe MR, prior MVr (#34 CE Ring), TV plasty, Maze, RODOLFO ligation (2017), HFpEF, afib, HTN PLAN: Per Dr Stone Will discuss with Attending and will have Dr. Mariee review. She has seen Dr. Mariee for a possible TMVR Wanda Montiel PA-C 01/18/2025 2:57 PM Cosigned by Mandeep Stone MD at 01/18/2025 5:36 PM EST Associated attestation - Mandeep Stone MD - 01/18/2025 5:36 PM EST I have reviewed the advanced practitioner's documentation on the date of service referenced in note, and I agree with, and take responsibility for the plan of care. I spent a total of 70 minutes coordinating, documenting, and providing care for this patient excluding time spent in the performance of separately billed services or time spent by another provider/QHP. 74y F with history of prior open heart surgery in [place] in 2017 for mitral valve repair (annuloplasty ring), tricuspid valve repair (annuloplasty ring), Maze procedure, and RODOLFO ligation. Also with HTN, and Afib (on Eliquis). She has had multiple admissions for Afib and heart failure, and has had progressively worsening dyspnea with exertion. She had an echo done in October 2024 which showed severe mitral regurgitation. She was evaluated by cardiology and subsequently underwent JUAN JOSE which confirmed severe MR with posterior leaflet prolapse and flail segment. EF was 55%, and there was trace TR with her previous repair. She was being evaluated for possible TMVR versus re-do surgery for MVR. Outpatient catheterization done today which showed no significant CAD, and severe pulmonary hypertension with elevated wedge pressure to 25. She was admitted for further management and evaluation. We discussed her options for re- do surgery with mitral valve replacement, versus transcatheter mitral valve replacement. She is low risk overall for surgery per STS risk score, and has reasonable functional status for her age. We discussed that surgery would be the most durable treatment with longer survival, though it comes with increased risks up front and is a longer physical recovery. She and her daughter also mentioned that she was previously told she had some lytic bone lesion concerning for multiple myeloma. However, she declined to have any further workup as she would not undergo any treatments for myeloma. She is concerned about her healing after surgery with this possible diagnosis. Sheis primarily interested in TMVR if it is feasible, even if the valve may not last as long, as she wishes to avoid a second heart surgery. Will discuss her options with Dr. Mariee after CT imaging obtained which may reveal if she is higher risk for either procedure. - Pending discussion with Interventional Cardiology regarding feasibility of TMVR, but patient is agood candidate for redo surgery for MVR. - CTA chest - Hold Landon Stone MD documented in this encounter Nursing Notes * Constanza Lunsford RN - 01/21/2025 7:29 PM EST VIRTUAL RN [facility] [place]-[address] [id number] Name: Hanh Roman Location: [facility] H854/A Date: 01/21/2025 Time: 7:29 PM I completed the Discharge Navigator. The patient was in the hospital. I was not in a hospital or clinic location. After connecting through [employer], the patient was identified by name and date of and / or wristband checked. Patient (or authorized legal telephone services sales representative) was then informed that this was a Virtual Nurse visit and was being conducted confidentially over secure lines. I used a headset and other methods to ensure confidentiality for the patient. My office door was closed. No oneelse was in the room with me. Patient acknowledged consent and understanding of privacy and security of the Virtual Nurse visit. I presented the opportunity for the patient or authorized legal telephone services sales representative to ask any questions regarding the visit today. The patient or authorized legal telephone services sales representative agreed to participate. Pt was alert and oriented. Discharge teaching/ education was completed and the pt/family had no concerns/questions. The bedside nurse (Stoney Cintron) made aware. * Sushila Thorne RN - 01/18/2025 8:29 PM EST VIRTUAL RN [facility] [place] [id number] Name: Hanh Roman Location: [facility] H854/A Date: 01/18/2025 Time: 8:29 PM I completed the Admission Navigator. The patient was in the hospital. I was not in a hospital or clinic location. After connecting through [employer], the patient was identified by name and date of and / or wristband checked. Patient (or authorized legal telephone services sales representative) was then informed that this was a Virtual Nurse visit and was being conducted confidentially over secure lines. I used a headset and other methods to ensure confidentiality for the patient. My office door was closed. No oneelse was in the room with me. Patient acknowledged consent and understanding of privacy and security of the Virtual Nurse visit. I presented the opportunity for the patient or authorized legal telephone services sales representative to ask any questions regarding the visit today. The patient or authorized legal telephone services sales representative agreed to participate. documented in this encounter Miscellaneous Notes * Pt Handout (on AVS) - Binh Yeager RN - 01/21/2025 5:38 PM EST Images from the original note were not included. [id number] Low-Salt Diet This diet removes foods that are high in salt. It also limits the amount of salt you use when cooking. It is most often used for people with high blood pressure, fluid retention (edema), and kidney, liver, or heart disease. Table salt has the mineral sodium. Your body needs sodium to work normally. But too much sodium canmake your health problems worse. Your healthcare provider advises a low-salt (low-sodium) diet for you. Your total daily allowed amount of salt is 1,500 to 2,300 milligrams (mg). This is less than 1 teaspoon of table salt. This means you can have only about 500 to 700 mg of sodium at each meal. People with certain health problems should limit salt intake to the lower end of the advised range. When you cook, don?t add much salt. If you can cook without using salt, even better. Don?t add saltto your food at the table. Use herbs and spices to flavor your food. When shopping, read food labels. Salt is often called sodium on the label. Choose foods that are salt-free, low salt, or very low salt. Note that foods with reduced salt may not lower your salt intake enough. Beans, legumes, and nuts OK: Dry beans, split peas, lentils, canned beans with no added salt, and unsalted nuts Avoid: Regular (salt added) canned beans and salted nuts Breads and grains OK: Low-sodium breads, rolls, cereals, cakes, low-salt crackers, matzo crackers, oats, rice, pasta with no salt added, and unsalted popcorn Avoid: Salted crackers, pretzels, tortilla chips, popcorn, and other salty snacks, as well as Cymro toast, pancakes, muffins, regular bread, instant oatmeal packets, and prepackaged seasoned rice orpasta blends Dairy OK: Milk, chocolate milk, hot chocolate mix, low-salt cheeses, and yogurt Avoid: Processed cheese and cheese spreads, Roquefort, Camembert, cottage cheese, buttermilk, and instant breakfast drinks Desserts OK: Ice cream, frozen yogurt, juice bars, gelatin, sugar, honey, jelly, and hard candy (though be mindful of added sugars in these foods) Avoid: Most pies, cakes, and cookies made with salt, and instant pudding Drinks OK: Tea, coffee, fizzy (carbonated) drinks, and juices Avoid: Flavored coffees, electrolyte replacement drinks, and sports drinks Meats OK: All fresh meat, fish, poultry, low-salt tuna, eggs, and egg substitute Avoid: Smoked, pickled, brine-cured, or salted meats and fish, and processed poultry injected with salt or marinade (this includes hernadez, chipped beef, jerky, corned beef, hot dogs, deli meats, ham, kosher meats, salt pork, sausage, canned tuna, salted codfish, smoked salmon, howe, sardines, andanchovies) Seasonings OK: Most seasonings are okay and good substitutes for salt include fresh herb blends, hot sauce, lemon, garlic, tejada, vinegar, dry mustard, parsley, cilantro, horseradish, tomato paste, low-salt mayonnaise, unsalted butter and margarine, cream cheese, vegetable and olive oil, cream, low-salt saladdressing, and gravy Avoid: Regular ketchup, relishes, pickles, soy sauce, teriyaki sauce, Worcestershire sauce, BBQ sauce, tartar sauce, meat tenderizer, chili sauce, regular gravy, regular salad dressing, and salted butter Soups OK: Low-salt soups and broths made with allowed foods Avoid: Bouillon cubes, soups with smoked or salted meats, and regular soup and broth Vegetables OK: Most vegetables are okay, including canned vegetables with no salt added, plain frozen vegetables, and low-salt tomato and vegetable juices Avoid: Sauerkraut and other brined vegetables, pickles and pickled vegetables, tomato juice, olives, canned vegetables with salt, frozen vegetables with sauces, and salted potato chips Last Reviewed Date: 2022 00:00:00 1335-2410 [employer]. All rights reserved. This information is not intended as a substitute for professional medical care. Always follow your healthcare professional's instructions. * Pt Handout (on AVS) - Binh Yeager RN - 01/21/2025 5:37 PM EST Images from the original note were not included. 00612 Eating Heart-Healthy Foods Eating has a big impact on your heart health. In fact, eating healthier can improve several of yourheart risks at once. For instance, it helps you manage weight, cholesterol, and blood pressure. Here are ideas to help you make heart- healthy changes without giving up all the foods and flavors you love. Getting started Talk with your healthcare provider about eating plans, such as the DASH or Mediterranean diet. You may also be referred to a dietitian. Ask a partner, family member, or friend to join you for mutual support. Change a few things at a time. Give yourself time to get used to a few eating changes before adding more. Work to create a tasty, healthy eating plan that you can stick to for the rest of your life. Goals for healthy eating Below are some tips to improve your eating habits: Limit saturated fats and trans fats. Saturated fats raise your levels of cholesterol, so keep these fats to a minimum. They are found in foods such as fatty meats, whole milk, cheese, and palm andcoconut oils. Avoid trans fats because they lower good cholesterol as well as raise bad cholesterol. Trans fats are most often found in processed foods, such as pastries, cookies, pies, muffins, fried foods, stick margarines, and shortening. Reduce how much sodium (salt) you have. Eating too much salt may increase your blood pressure. Limit your sodium intake to 2,300 milligrams (mg) per day (the amount in 1 teaspoon of salt), or lessif your healthcare provider recommends it. Dining out less often and eating fewer processed foods are two great ways to decrease the amount of salt you consume. At home, flavor your foods with other spices and herbs instead of salt. Managing calories. A calorie is a unit of energy. Your body avery calories for fuel, but if you eat more calories than your body avery, the extras are stored as fat. Your healthcare provider or dietitian can help you create a diet plan to manage your calories. This will likely include eating healthier foods and getting regular exercise. To help you track your progress, keep a food diary to record what you eat and how often you exercise. Choose the right foods Aim to make these foods severo of your diet. If you have diabetes, you may have different recommendations than what is listed here: Fruits and vegetables provide plenty of nutrients without a lot of calories. At meals, fill halfyour plate with these foods. Choose between fresh, frozen, canned, or dried fruits and vegetables without added sauces, salt, or sugars. Split the other half of your plate between whole grains and lean protein. Whole grains are high in fiber and rich in vitamins and nutrients. Good choices include whole-wheat bread, pasta, oats, and brown rice. Make at least half of your grains whole grains. Lean proteins give you nutrition with less fat. Good choices include fish, skinless chicken and turkey, and beans. Draining the fat from cooked ground meat is another way to reduce the amount of fat you eat. Low-fat and nonfat dairy provide nutrients without a lot of fat. Try low-fat or nonfat milk, cheese, or yogurt. Healthy fats can be good for you in small amounts. These are unsaturated fats, such as olive oil, avocado, nuts, and fish. Try to have at least 2 servings per week of fatty fish, such as salmon, sardines, mackerel, rainbow trout, and albacore tuna. These contain omega-3 fatty acids, which are good for your heart. Flaxseed and walnuts are other sources of heart-healthy fats. More on heart-healthy eating Read food labels Healthy eating starts at the grocery store. Be sure to pay attention to food labels on packaged foods. Look for products that are high in fiber and protein and low in saturated fat, added sugars, andsodium. Avoid products that contain trans fat. And pay close attention to serving size. For instance, if you plan to eat 2 servings, double all the numbers on the label. Prepare food right A chen part of healthy cooking is cutting down on added fat, sugar, and salt. Look on the Internet for lower-fat, lower-sodium recipes without a lot of added sugars. Also try these tips: Remove fat from meat and skin from poultry before cooking. Skim fat from the surface of soups and sauces. Broil, roast, boil, bake, steam, grill, or microwave food without added fats. Choose ingredients that spice up your food without adding calories, fat, sugar, or sodium. Try these items: horseradish, hot sauce, lemon zest and juice, garlic, onion, mustard, nonfat salad dressings, and vinegar. Small amounts of olive oil-based vinaigrettes are OK, too. For salt-free herbs and spices, try basil, cilantro, cinnamon, cumin, paprika, pepper, and ani. Last Reviewed Date: 2022 00:00:00 [id number] [employer]. All rights reserved. This information is not intended as a substitute for professional medical care. Always follow your healthcare professional's instructions. * Ancillary Progress Note - Katlyn Myers RN - 01/20/2025 2:40 PM EST CARE MANAGEMENT - ADULT TRANSITION NOTE [facility] [address] Name: Hanh Roman Location: [facility] H854/A Date: 01/20/2025 Time: 2:41 PM Risk Stratification Readmission Risk Score: 10.13 (01/20/25 1201) AM-PAC Score With Stairs : 21 (01/20/25 0700) Caregiver Information Emergency Contacts Name Relation Home Work Mobile Latrice Melo Adult Child [phone] Other Contacts Name Relation Home Work Mobile chico hardy [phone] Transition of Care Checklist Narrative: CM has been following [facility] hospital course. Patient discussed in IDT rounds. They are not medically stable for discharge at this time. Patient with severe mitral valve regurg. Patient currently on heparin gtt. Consulted by CT surg. CTA TAVR for flail MV evaluation. Discharge plan evolving - CM will continue to follow for discharge needs. Anticipated Transportation at Discharge: family Patient/Family Expectations: home Transition Planning Additional Considerations: n/a Care Management will continue to monitor and assist with discharge planning needs * Care Plan - Amy Brower RN - 01/19/2025 11:24 PM EST Possible barriers to meeting goal(s)/advancing plan of care: weakness Stability of the patient: Moderately stable - low risk of patient condition declining or worsening Summary regarding today's goal(s): Met: patient remain free from falls Recommendations: continue hourly rounding * Ancillary Progress Note - Katlyn Myers RN - 01/19/2025 2:21 PM EST CARE MANAGEMENT - ADULT TRANSITION NOTE [facility] [address] Name: Hanh Roman Location: [facility] H854/A Date: 01/19/2025 Time: 2:22 PM Risk Stratification Readmission Risk Score: 10.31 (01/19/25 1201) AM-PAC Score With Stairs : 21 (01/19/25 0700) Caregiver Information Emergency Contacts None on File Other Contacts Name Relation Home Work Mobile Latrice Melo Adult Child [phone] chico hardy [phone] Transition of Care Checklist Narrative: CM has been following [facility] hospital course. Patient discussed in IDT rounds. They are not medically stable for discharge at this time. Patient with severe mitral valve regurg. Patient currently on heparin gtt. Consulted by CT surg. Discharge plan evolving - CM will continue to follow for discharge needs. Anticipated Transportation at Discharge: family Patient/Family Expectations: home Transition Planning Additional Considerations: n/a Care Management will continue to monitor and assist with discharge planning needs * Pt Handout (on AVS) - Sushila Thorne RN - 01/19/2025 12:55 AM EST Images from the original note were not included. [id number] Understanding Mitral Valve Regurgitation Mitral valve regurgitation is when the mitral valve in the heart is leaky. It lets some blood flow backwards when the ventricle squeezes. How mitral valve regurgitation happens The mitral valve is one of the heart?s 4 valves. Normally, these valves close tightly to help the blood flow through the heart?s 4 chambers and out to the body. The mitral valve lies between the leftatrium and the left ventricle. Normally, the mitral valve stops blood from flowing back into the left atrium from the left ventricle when the ventricle squeezes. This maximizes forward blood flow through the heart and out to the body. With mitral valve regurgitation, the valve doesn't close tightly and some blood leaks back through the valve. This makes the heart have to work harder to get blood out to your body. When this blood is regurgitated backwards in the heart, it increases the pressure within the heart. This can lead to muscle damage as well as high blood pressure in the lungs. Mitral valve regurgitation can increase risk for other heart rhythm problems, such as atrial fibrillation (AFib). This abnormal heart rhythm results in fast and irregular heartbeats. AFib can also lower the heart's pumping ability and increases the risk for stroke. Mitral valve regurgitation can be acute or chronic. If it?s acute, the valve suddenly becomes leaky. In this case, the heart doesn?t have time to adapt to the leak in the valve. Symptoms are often severe. If you have severe mitral valve regurgitation, you may need a catheter procedure or surgery torepair or replace the leaking valve. If it?s chronic, the valve leaks more and more over time. The heart and the body have time to adaptto the leak. What causes mitral valve regurgitation? Mitral valve regurgitation can be caused by various things, such as: Heart attack or coronary artery disease Natural aging that can damage the mitral valve Tearing of the tissue or muscle that supports the mitral valve, sometimes due to an injury A floppy mitral valve, called mitral valve prolapse Rheumatic heart disease caused by untreated Streptococcus (strep) infection. Strep are the bacteria that cause strep throat. Certain autoimmune diseases, such as rheumatoid arthritis Infection of the heart valves (endocarditis) Problems with the mitral valve that are present at Certain medicines, such as weight loss medicines that were used to treat obesity (fen-phen) You can reduce some risk factors for mitral valve regurgitation. For example: Use antibiotics as directed to treat a strep infection and prevent rheumatic heart disease. Reduce the risk for heart valve infection by not injecting illegal drugs. Manage risk factors that can lead to a heart attack or chronic heart artery disease. There are other risk factors that you can?t change. For example, some conditions that can lead to mitral valve regurgitation are partly genetic. Symptoms of mitral valve regurgitation Chronic mitral valve regurgitation often doesn?t cause symptoms for a long time. Mild or moderate mitral valve regurgitation often doesn?t cause any symptoms. If the condition becomes more severe, you may have symptoms. They may get worse and happen more often over time. Symptoms may include: Shortness of breath with physical activity Shortness of breath when lying flat Feeling tired Less ability to exercise Awareness of your heartbeat, such as feeling a pounding in your chest (palpitations) or racing and irregular heartbeats that accompany AFib Swelling in your legs, abdomen, and the veins in your neck Chest pain (less common) Acute, severe mitral valve regurgitation is a medical emergency that can cause serious symptoms such as: Symptoms of shock (pale skin, loss of consciousness, rapid breathing) Severe shortness of breath Arrhythmias that make the heart unable to pump blood well Diagnosing mitral valve regurgitation Your healthcare provider will ask about your health history. They will give you a physical exam. Using a stethoscope, your healthcare provider will listen to your heart. This is to check for sounds called heart murmurs and other signs that the heart isn?t pumping normally. You may also have tests such as: Echocardiogram, to look at the structure of the heart using sound waves Stress echocardiogram, to see how well the heart does during exercise Electrocardiogram (ECG), to check the heart?s rhythm Cardiac MRI, transesophageal echocardiogram, or cardiac catheterization, if more information is needed Last Reviewed Date: 2022 00:00:00 [id number] [employer]. All rights reserved. This information is not intended as a substitute for professional medical care. Always follow your healthcare professional's instructions. * Pt Handout (on AVS) - Sushila Thorne RN - 01/19/2025 12:55 AM EST Images from the original note were not included. [id number] Treatment for Mitral Valve Regurgitation Mitral valve regurgitation is when the mitral valve in the heart is leaky. This valve connects the left atrium to the left ventricle, the main pumping chamber of the heart. When the left ventricle contracts, blood is supposed to move forward out of the heart. With a leaky valve, some blood flows backwards. This reduces forward blood flow out of the heart. It?s also known as mitral insufficiency. Types of treatment Treatment will depend on the cause of your condition. It also depends on how severe it is and how quickly it developed. If you have mild or moderate regurgitation, you may not need treatment. Your healthcare provider may just watch your health. You may need echocardiograms over time if you have moderate regurgitation.You may also need to take medicines such as: Angiotensin-converting enzyme (NAG) inhibitors and beta-blockers to help reduce the workload of a heart that?s not pumping well Medicines to slow the heart rate or control the heart rhythm if you develop atrial fibrillation (AFib) Water pills (diuretics) to reduce swelling and improve symptoms Blood-thinner medicine (anticoagulant) to help prevent blood clots if you have AFib You may need surgery or a catheter-based procedure called a transcatheter mitral valve repair for severe regurgitation. Surgery is often needed right away for acute severe regurgitation. The surgeon or air conditioner installer helper may be able to repair the mitral valve. In some cases, the valve may need to be replaced. Possible complications of mitral valve regurgitation Mitral valve regurgitation can cause complications such as: AFib, which increases the risk for stroke High blood pressure in the lungs (pulmonary hypertension) Dilation of the heart with weakening of the pumping chamber of the heart (ventricle) Heart failure To reduce the risk for these complications, your healthcare provider may prescribe: Blood-thinner medicine to prevent blood clots Medicine to reduce the stress load of the heart Antibiotics before certain medical and dental procedures (this is if you have a history of congenital heart disease, a repaired or replaced heart valve, or a history of infection of the heart) Living with mitral valve regurgitation See your healthcare provider regularly. This is so they can watch your condition. Take note of any symptoms you feel. They may get worse during physical activity. Talk with your healthcare provider about what level of exercise is right for you. If you have mitral valve regurgitation that is gettingworse, you may be advised to avoid certain activities. Tell all your healthcare providers and dentists about your valve problem. If you have heart problems related to mitral valve regurgitation, your healthcare provider may alsotreat you with: Medicines that lower blood pressure Medicines to reduce the risk for arrhythmias And your healthcare provider may also tell you to: Eat a low-salt, heart-healthy diet to lower blood pressure and reduce the stress on your heart Cut back on caffeine and alcohol to lower your risk for arrhythmias When to call the healthcare provider If you notice your symptoms are slowly getting worse, plan to see your healthcare provider. You mayneed surgery or a change of medicine. Call 911 Call 911 if you: Have severe shortness of breath or chest pain Notice sudden new symptoms Last Reviewed Date: 2022 00:00:00 [id number] [employer]. All rights reserved. This information is not intended as a substitute for professional medical care. Always follow your healthcare professional's instructions. * Ancillary Progress Note - Anshul Thomason RCIS - 01/18/2025 11:47 AM EST [facility] [address] Ancillary Progress Note Patient Name: Hanh Roman Date: 01/18/2025 Patient will be escorted to Cardiac Recovery Suite, report given to crs nurse. We performed a Diagnostic Cardiac Catheterization procedure on this patient.. The right radial artery was attempted, left radial artery, and right brachial vein was used for access with a 6 Cymro sheath. A Radial Band was applied at 10 mL of air to close both arterial sites. Manual pressure applied to venous site and gauze with tegaderm applied. There is no hematoma and no ooze from the cath sites noted. No sterile dressing applied to site. Radial band applied to site Distal pulses were palpated and instructions to patient were given. There were no complications during the case. Please see the MAR for the medications that were given. See Cath Procedure Log for patient vitals during the case. documented in this encounter Plan of Treatment Upcoming Encounters Date Type Department Care Team (Late st Contact Info) Description 04/01/2025 9:20 AM EDT Office Visit General Internal Medicine [facility] [address] [facility] [place] [address] Zuleima Garcia MD [address] [facility] [address] [place] [id number] 04/01/2025 11:00 AM EDT Office Visit Cardiology, [facility] [address] [place] [address] Daiana Anne CRNP [address] [place] [id number] Pending Results Name Type Priority Associated Diagnoses Date /Time URINE PROTEIN ELECTROPHORESIS REFLEX PROFILE, 24 HOUR URINE Lab Routine 11:56 AM EST [id number], SERUM Lab Add-on 01/20/2025 9:59 AM EST Scheduled Orders Name Type Priority Associated Diagnoses Orde r Schedule EKG EKG Routine SOB (shortness of breath) One Time for 1 Occurrences starting 01/18/2025 until 01/18/2025 URINE PROTEIN ELECTROPHORESIS REFLEX PROFILE, 24 HOUR URINE Lab Routine One Time for 1 Occurrences starting 01/20/2025 until 01/20/2025, 1 completed [id number], SERUM Lab Add-on One Time for 1 Occurrences starting 01/21/2025 until 01/21/2025 Scheduled Procedures Name Priority Associated Diagnoses Date/Ti [...] D LEVEL ONCE IN A LIFETIME-USE SMARTSET# [id number] Completed 01/12/2023, 06/03/2021, 08/16/2018 Influenza Vaccine (FLU [...] this encounter Medical Devices Implanted Type Area Distilling Department Supervisor Device Identifier Shelf Expiration Date Model / Serial / Lot Cath Thermodilution 6fr - [id number] Implanted:Qty: 1 on 01/18/2025 by Melinda Jin MD at [facility]ARDI[facility] LAB[facility] [employer] [id number] 06/24/2026 [id number] / [id number] documented as of this encounter Procedures Procedure Name Priority Date/Time Associated Diagnosis Comments URINE PROTEIN, 24 HOUR Routine 11:56 AM EST DIFFERENTIAL, AUTOMATED Routine 01/21/20 5:03 AM EST BASIC METABOLIC PANEL Routine 01/21/2025 5:03 AM EST CBC Routine 01/21/2025 5:03 AM EST PHOSPHORUS Routine 01/21/2025 5:03 AM EST CBC Routine 01/21/2025 5:03 AM EST MAGNESIUM Routine 01/21/2025 5:03 AM EST SERUM PROTEIN ELECTROPHORESIS REFLEX PROFILE Routine 01/20/2025 9:59 AM EST SERUM FREE LIGHT CHAINS Routine 01/20/20 9:59 AM EST LD Routine 01/20/2025 9:59 AM EST CLINICIAN PERIPHERAL BLOOD SLIDE REQUEST Add-on 01/20/2025 5:19 AM EST DIFFERENTIAL, AUTOMATED STAT 01/20/20 5:19 AM EST RETICULOCYTE PANEL Add-on 01/20/2025 5: 19 AM EST IMMUNOGLOBULIN QUANTITATIVE Add-on 01/20/2025 5:19 AM EST HEPATIC FUNCTION PANEL Add-on 5:19 AM EST BASIC METABOLIC PANEL Routine 01/20/2025 5:19 AM EST FOLIC ACID Add-on 01/20/2025 5:19 AM EST IRON SCREEN, INCLUDING TIBC Add-on 01/20/2025 5:19 AM EST CBC STAT 01/20/2025 5:19 AM EST PT INR Routine 01/20/2025 5:19 AM EST PHOSPHORUS Routine 01/20/2025 5:19 AM EST APTT Routine 01/20/2025 5:19 AM EST CBC STAT 01/20/2025 5:19 AM EST MAGNESIUM Routine 01/20/2025 5:19 AM EST HAPTOGLOBIN Add-on 01/20/2025 5:19 AM EST FERRITIN Add-on 01/20/2025 5:19 AM EST VITAMIN B12 Add-on 01/20/2025 5:19 AM EST CTA TAVR GATED STUDY Routine 01/19/2025 9:52 AM EST Cardiomegaly Other diseases of pulmonary vessels (HCC) Emphysema, unspecified (HCC) Presence of prosthetic heart valve APTT STAT 01/19/2025 6:58 AM EST DIFFERENTIAL, AUTOMATED STAT 01/19/20 4:57 AM EST HEMOGLOBIN A1C Routine 01/19/2025 4:57 AM EST BASIC METABOLIC PANEL Routine 01/19/2025 4:57 AM EST CBC STAT 01/19/2025 4:57 AM EST PT INR Routine 01/19/2025 4:57 AM EST PHOSPHORUS Routine 01/19/2025 4:57 AM EST CBC STAT 01/19/2025 4:57 AM EST MAGNESIUM Routine 01/19/2025 4:57 AM EST LIPID PANEL WITHOUT DIRECT LDL Routine 01/19/2025 4:57 AM EST APTT STAT 01/19/2025 12:59 AM EST HEPARIN, UNFRACTIONATED STAT 01/18/20 4:57 PM EST PT INR STAT 01/18/2025 4:57 PM EST APTT STAT 01/18/2025 4:57 PM EST CBC STAT 01/18/2025 4:57 PM EST AVOXIMETER, POINT OF CARE Routine 01/18/2025 11:38 AM EST AVOXIMETER, POINT OF CARE Routine 01/18/2025 11:20 AM EST RENAL FUNCTION PANEL STAT 01/18/2025 10:18 AM EST CBC STAT 01/18/2025 10:18 AM EST CARDIAC CATHETERIZATION REPORT Routine 01/18/2025 documented in this encounter Results * URINE PROTEIN, 24 HOUR (01/21/2025 11:56 AM EST) Protein, Urine <6 mg/dL 01/21/2025 1:06 PM EST LABORATORY [facility] Urine Volume 3,000 mL 01/21/2025 1:06 PM EST LABORATORY GM Protein, 24 Hour Urine 01/21/2025 1:06 PM EST LABORATORY [facility] Comment:Uninterpretable due to very low protein or high urine volume Urine Urine specimen / Unknown Non-blood Collection / Unknown 01/21/2025 11:56 AM EST 01/21/2025 12:03 PM EST [facility] LABORATORY [facility] - 01/21/2025 1:06 PM EST Normal: <150 mg/24 hours High: 150-500 mg/24 hours Very High: >500 mg/24 hours Nephrotic: >3000 mg/24 hours Garfield Ray MD LAB URINE ORDERABLES Final Resul t LABORATORY [facility] [address] [place] [address] * (ABNORMAL) DIFFERENTIAL, AUTOMATED (01/21/2025 5:03 AM EST) Pathologist [facility] WBC 4.35 4.00 - 10.80 K/uL 01/21/2025 5:22 AM EST LABORATORY [facility] Neutrophils % 45.8 40.0 - 75.0 % 01/21/2025 5:22 AM EST LABORATORY [facility] Lymphocytes % 37.5 18.0 - 42.0 % 01/21/2025 5:22 AM EST LABORATORY [facility] Monocytes % 11.7(H) 1.0 - 11.0 % 01/21/2025 5:22 AM EST LABORATORY [facility] Eosinophils % 4.1 0.0 - 6.0 % 01/21/2025 5:22 AM EST LABORATORY [facility] Basophils % 0.7 0.0 - 2.0 % 01/21/2025 5:22 AM EST LABORATORY [facility] Immature Granulocytes % 0.2 0.0 - 2.0 % 01/21/2025 5:22 AM EST LABORATORY [facility] Absolute Neutrophils 1.99 1.80 - 7.70 K/uL 01/21/2025 5:22 AM EST LABORATORY [facility] Absolute Lymphocytes 1.63 1.00 - 4.80 K/ul 01/21/2025 5:22 AM EST LABORATORY [facility] Absolute Monocytes 0.51 0.00 - 1.10 K/uL 01/21/2025 5:22 AM EST LABORATORY [facility] Absolute Eosinophils 0.18 0.00 - 0.70 K/uL 01/21/2025 5:22 AM EST LAB[facility]ATORY [facility] Absolute Basophils 0.03 0.00 - 0.20 K/uL 01/21/2025 5:22 AM EST LABORATORY [facility] Absolute Immature Granulocytes 0.01 0.00 - 0.20 K/uL 01/21/2025 5:22 AM EST LABORATORY [facility] Blood Venous blood specimen / Unknown Venipuncture / Unknown 01/21/2025 5:03 AM EST 01/21/2025 5:07 AM EST Gina Munguia MD LAB BLOOD ORDERABLES Final Result LABORATORY [facility] [address] [place] [address] * (ABNORMAL) CBC (01/21/2025 5:03 AM EST) WBC 4.35 4.00 - 10.80 K/uL 01/21/2025 5:22 AM EST LABORATORY [facility] RBC 3.53 3.85 - 5.15 M/uL 01/21/2025 5:22 AM EST LABORATORY [facility] HGB 10.4(L) 12.0 - 15.3 g/dL 01/21/2025 5:22 AM EST LAB[facility]ATORY [facility] HCT 33.8(L) 36.0 - 45.2 % 01/21/2025 5:22 AM EST LAB[facility]ATORY [facility] MCV 95.8 81.5 - 97.5 fL 01/21/2025 5:22 AM EST LAB[facility]ATORY [facility] MCH 29.5 27.0 - 34.0 pg 01/21/2025 5:22 AM EST LAB[facility]ATORY [facility] MCHC 30.8 32.0 - 36.0 g/dL 01/21/2025 5:22 AM EST LAB[facility]ATORY [facility] RDW 14.4 11.5 - 15.5 % 01/21/2025 5:22 AM EST LABORATORY [facility] PLT 135(L) 140 - 400 K/uL 01/21/2025 5:22 AM EST LAB[facility]ATORY [facility] MPV 10.3 6.6 - 11.1 fL 01/21/2025 5:22 AM EST LABORATORY [facility] nRBCs 0 <=0 /100 WBCs 01/21/2025 5:22 AM EST LABORATORY [facility] Blood Venous blood specimen / Unknown Venipuncture / Unknown 01/21/2025 5:03 AM EST 01/21/2025 5:07 AM EST Gina Munguia MD LAB BLOOD ORDERABLES Final Result Performing Organization Address City/[facility]/ZIP Co de Phone Number LABORATORY [place] [address] [place] [address] * PHOSPHORUS (01/21/2025 5:03 AM EST) Phosphorus 4.2 2.5 - 4.8 mg/dL 01/21/2025 5:39 AM EST LABORATORY [facility] Blood Venous blood specimen / Unknown Venipuncture / Unknown 01/21/2025 5:03 AM EST 01/21/2025 5:07 AM EST Gina Munguia MD LAB BLOOD ORDERABLES Final Result LABORATORY [facility] [address] [place] [address] * MAGNESIUM (01/21/2025 5:03 AM EST) Magnesium 1.9 1.5 - 2.6 mg/dL 01/21/2025 5:39 AM EST LABORATORY [facility] Blood Venous blood specimen / Unknown Venipuncture / Unknown 01/21/2025 5:03 AM EST 01/21/2025 5:07 AM EST Gina Munguia MD LAB BLOOD ORDERABLES Final Result LABORATORY [facility] [address] [place] [address] * (ABNORMAL) BASIC METABOLIC PANEL (01/21/2025 5:03 AM EST) BUN 9 6 - 20 mg/dL 01/21/2025 5:39 AM EST LABORATORY [facility] CREATININE 0.6 0.5 - 1.0 mg/dL 01/21/2025 5:39 AM EST LABORATORY [facility] EGFR >90 >=60 mL/min 01/21/2025 5:39 AM EST LABORATORY [facility] Comment:eGFR is calculated b ased on the CKD-EPI 2020 equation. SODIUM 133(L) 135 - 146 mmol/L 01/21/2025 5:39 AM EST LABORATORY [facility] POTASSIUM 4.3 3.5 - 5.1 mmol/L 01/21/2025 5:39 AM EST LAB[facility]ATORY [facility] CHLORIDE 98 98 - 107 mmol/L 01/21/2025 5:39 AM EST LAB[facility]ATORY [facility] CO2 25 22 - 32 mmol/L 01/21/2025 5:39 AM EST LAB[facility]ATORY [facility] ANION GAP 10 7 - 15 mmol/L 01/21/2025 5:39 AM EST LAB[facility]ATORY [facility] GLUCOSE 84 70 - 120 mg/dL 01/21/2025 5:39 AM EST LAB[facility]ATORY [facility] CALCIUM 10.1 8.4 - 10.2 mg/dL 01/21/2025 5:39 AM EST LABORATORY [facility] Blood Venous blood specimen / Unknown Venipuncture / Unknown 01/21/2025 5:03 AM EST 01/21/2025 5:07 AM EST Gina Munguia MD LAB BLOOD ORDERABLES Final Result LABORATORY [facility] [address] [place] [address] * LD (01/20/2025 9:59 AM EST) LD 135 <=250 U/L 01/20/2025 10:51 AM EST LABORATORY [facility] Blood Venous blood specimen / Unknown Venipuncture / Unknown 01/20/2025 9:59 AM EST 01/20/2025 10:22 AM EST Garfield Ray MD LAB BLOOD ORDERABLES Final Resul t Performing Organization Address [facility] de Phone Number LABORATORY [facility] [address] [place] [address] * (ABNORMAL) SERUM FREE LIGHT CHAINS (01/20/2025 9:59 AM EST) Pathologist [facility] [place] Free Light Chains, Serum 387.54(H) 3.30 - 19.40 mg/L 01/20/2025 2:11 PM EST LABORATORY [facility] Lambda Free Light Chains, Serum 8.77 5.71 - 26.30 mg/L 01/20/2025 2:11 PM EST LABORATORY [facility] [place] Free Light Chains Ratio 44.19(H) 0.26 - 1.65 01/20/2025 2:11 PM EST LABORATORY [facility] Blood Venous blood specimen / Unknown Venipuncture / Unknown 01/20/2025 9:59 AM EST 01/20/2025 10:22 AM EST Garfield Ray MD LAB BLOOD ORDERABLES Final Resul t Performing Organization Address [facility] Phone Number LABORATORY [address] [address] * (ABNORMAL) SERUM PROTEIN ELECTROPHORESIS REFLEX PROFILE (01/20/2025 9:59 AM EST) Pathologist [facility] Normal/Abnormal Abnormal(A) Normal 01/21/20 3:25 PM EST LABORATORY [facility] Protein 7.5 6.0 - 8.3 g/dL 01/21/2025 3:25 PM EST LABORATORY [facility] Albumin 3.03(L) 3.30 - 4.40 g/dL 01/21/2025 3:25 PM EST LABORATORY [facility] Alpha-1 Globulin 0.23 0.10 - 0.30 g/dL 01/21/2025 3:25 PM EST LABORATORY [facility] Alpha-2 Globulin 0.61 0.60 - 1.00 g/dL 01/21/2025 3:25 PM EST LABORATORY [facility] Beta-Globulin 3.35(H) 0.80 - 1.30 g/dL 01/21/2025 3:25 PM EST LABORATORY [facility] Gamma-Globulin 0.28(L) 0.70 - 1.70 g/dL 01/21/2025 3:25 PM EST LABORATORY [facility] Electrophoresis Interpretation Abnormal. 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 Unable to reliably identify or accurately quantify the paraprotein due to its migration in the beta region. Please order serum free light chains, beta-2 microglobulin, and the quantitative immunoglobulins for disease monitoring. Decreased gamma fraction. 01/21/2025 3:25 PM EST LAB[facility]ATORY [facility] Blood Venous blood specimen / Unknown Venipuncture / Unknown 01/20/2025 9:59 AM EST 01/20/2025 10:22 AM EST Garfield Ray MD LAB BLOOD ORDERABLES Final Resul t Performing Organization Address [facility] Phone Number LABORATORY [facility] [address] [place] [address] * RETICULOCYTE PANEL (01/20/2025 5:19 AM EST) Pathologist [facility] Reticulocyte Percent 1.55 0.80 - 1.90 % 01/20/2025 10:23 AM EST LABORATORY [facility] Absolute Reticulocyte 50.8 31.3 - 100.1 K/uL 01/20/2025 10:23 AM EST LAB[facility]ATORY [facility] Immature Reticuloctye Fraction 10.5 2.5 - 20.6 % 01/20/2025 10:23 AM EST LAB[facility]ATORY [facility] Reticulocyte Hemoglobin 34.6 29.7 - 37.4 pg 01/20/2025 10:23 AM EST LAB[facility]ORY [facility] Blood Venous blood specimen / Unknown Venipuncture / Unknown 01/20/2025 5:19 AM EST 01/20/2025 5:30 AM EST Garfield Ray MD LAB BLOOD ORDERABLES Final Resul t Performing Organization Address [facility] Co de Phone Number LABORATORY [facility] [address] [place] [address] * IRON SCREEN, INCLUDING TIBC (01/20/2025 5:19 AM EST) Iron 47 33 - 151 ug/dL 01/20/2025 11:15 AM EST LABORATORY [facility] Iron Binding Capacity 274 250 - 425 ug/dL 01/20/2025 11:15 AM EST LABORATORY [facility] Transferrin Saturation Percent 17 15 - 55 % 01/20/2025 11:15 AM EST LABORATORY [facility] Blood Venous blood specimen / Unknown Venipuncture / Unknown 01/20/2025 5:19 AM EST 01/20/2025 5:30 AM EST us Garfield Ray MD LAB BLOOD ORDERABLES Final Resul t Performing Organization Address City/[facility] Co de Phone Number LABORATORY [place] [address] [place] [address] * FERRITIN (01/20/2025 5:19 AM EST) Pathologist [facility] Ferritin 105 13 - 150 ng/mL 01/20/2025 10:57 AM EST LABORATORY [facility] Comment:Postmenopausal women have higher ferritin levels than pre-menopausal women. The above reference interval is based on pre-menopausal women. Blood Venous blood specimen / Unknown Venipuncture / Unknown 01/20/2025 5:19 AM EST 01/20/2025 5:30 AM EST us Garfield Ray MD LAB BLOOD ORDERABLES Final Resul t Performing Organization Address City/[facility] de Phone Number LABORATORY [facility] [address] [place] [address] * (ABNORMAL) HEPATIC FUNCTION PANEL (01/20/2025 5:19 AM EST) Albumin 3.1(L) 3.8 - 5.0 g/dL 01/20/2025 10:22 AM EST LAB[facility]ATORY [facility] AST 13 10 - 35 U/L 01/20/2025 10:22 AM EST LAB[facility]ATORY [facility] Alkaline Phosphatase 58 35 - 130 U/L 01/20/2025 10:22 AM EST LABORATORY GM ALT 14 10 - 35 U/L 01/20/2025 10:22 AM EST LAB[facility]ORY [facility] Bilirubin, Total 0.4 <=1.2 mg/dL 01/20/2025 10:22 AM EST LAB[facility]ATORY [facility] Bilirubin, Direct 0.2 0.0 - 0.3 mg/dL 01/20/2025 10:22 AM EST LAB[facility] Protein 7.5 6.0 - 8.3 g/dL 01/20/2025 10:22 AM EST [facility] Blood Venous blood specimen / Unknown Venipuncture / Unknown 01/20/2025 5:19 AM EST 01/20/2025 5:30 AM EST Garfield Ray MD LAB BLOOD ORDERABLES Final Resul t Performing Organization Address City/[facility]/ZIP Co de Phone Number LABORATORY [facility] [address] [place] [address] * (ABNORMAL) HAPTOGLOBIN (01/20/2025 5:19 AM EST) Haptoglobin 20(L) 30 - 200 mg/dL 01/20/2025 11:15 AM EST LAB[facility]ORY [facility] Blood Venous blood specimen / Unknown Venipuncture / Unknown 01/20/2025 5:19 AM EST 01/20/2025 5:30 AM EST Garfield Ray MD LAB BLOOD ORDERABLES Final Resul t Performing Organization Address City/[facility]/ZIP Co de Phone Number LABORATORY [place] [address] [place] [address] * FOLIC ACID (01/20/2025 5:19 AM EST) Folic Acid >20.0 >4.5 ng/mL 01/20/2025 10:57 AM EST LAB[facility]ORY [facility] Blood Venous blood specimen / Unknown Venipuncture / Unknown 01/20/2025 5:19 AM EST 01/20/2025 5:30 AM EST Garfield Ray MD LAB BLOOD ORDERABLES Final Resul t LABORATORY [facility] [address] [place] [address] * VITAMIN B12 (01/20/2025 5:19 AM EST) Vitamin B12 698 232 - 1,245 pg/mL 01/20/2025 10:57 AM EST LAB[facility]ORY [facility] Blood Venous blood specimen / Unknown Venipuncture / Unknown 01/20/2025 5:19 AM EST 01/20/2025 5:30 AM EST Garfield Ray MD LAB BLOOD ORDERABLES Final Resul t LABORATORY [facility] [address] [place] [address] * (ABNORMAL) IMMUNOGLOBULIN QUANTITATIVE (01/20/2025 5:19 AM EST) IgG 2,530(H) 700 - 1,600 mg/dL 01/20/2025 11:26 AM EST LAB[facility]ATORY [facility] IgA 30(L) 70 - 400 mg/dL 01/20/2025 11:26 AM EST LAB[facility] IgM 34(L) 40 - 230 mg/dL 01/20/2025 11:26 AM EST LAB[facility] Blood Venous blood specimen / Unknown Venipuncture / Unknown 01/20/2025 5:19 AM EST 01/20/2025 5:30 AM EST Garfield Ray MD LAB BLOOD ORDERABLES Final Resul t LABORATORY [facility] [address] [place] [address] * CLINICIAN PERIPHERAL BLOOD SLIDE REQUEST (01/20/2025 5:19 AM EST) Clinician Slide Ready? Yes 01/20/2025 10:24 AM EST LABORATORY [facility] Location to pickup slide: [facility] Main Laboratory - [place] 01/20/2025 10:24 AM EST LABORATORY [facility] Blood Venous blood specimen / Unknown Venipuncture / Unknown 01/20/2025 5:19 AM EST 01/20/2025 5:30 AM EST us Garfield Ray MD LAB BLOOD ORDERABLES Final Resul t LAB[facility] [address] [place] [address] * (ABNORMAL) DIFFERENTIAL, AUTOMATED (01/20/2025 5:19 AM EST) WBC 3.52(L) 4.00 - 10.80 K/uL 01/20/2025 5:58 AM EST LAB[facility]ATORY [facility] Neutrophils % 46.3 40.0 - 75.0 % 01/20/2025 5:58 AM EST LAB[facility] Lymphocytes % 35.5 18.0 - 42.0 % 01/20/2025 5:58 AM EST LAB[facility]ORY [facility] Monocytes % 13.9(H) 1.0 - 11.0 % 01/20/2025 5:58 AM EST LAB[facility] Eosinophils % 3.4 0.0 - 6.0 % 01/20/2025 5:58 AM EST LAB[facility] Basophils % 0.6 0.0 - 2.0 % 01/20/2025 5:58 AM EST LAB[facility] Immature Granulocytes % 0.3 0.0 - 2.0 % 01/20/2025 5:58 AM EST LAB[facility] Absolute Neutrophils 1.63(L) 1.80 - 7.70 K/uL 01/20/2025 5:58 AM EST LAB[facility]ATORY [facility] Absolute Lymphocytes 1.25 1.00 - 4.80 K/ul 01/20/2025 5:58 AM EST LAB[facility]ATORY [facility] Absolute Monocytes 0.49 0.00 - 1.10 K/uL 01/20/2025 5:58 AM EST LAB[facility] Absolute Eosinophils 0.12 0.00 - 0.70 K/uL 01/20/2025 5:58 AM EST LAB[facility] Absolute Basophils 0.02 0.00 - 0.20 K/uL 01/20/2025 5:58 AM EST LAB[facility]ORY [facility] Absolute Immature Granulocytes 0.01 0.00 - 0.20 K/uL 01/20/2025 5:58 AM EST LAB[facility] Blood Venous blood specimen / Unknown Venipuncture / Unknown 01/20/2025 5:19 AM EST 01/20/2025 5:30 AM EST Gina Munguia MD LAB BLOOD ORDERABLES Final Result [facility] [address], [place] [id number] * (ABNORMAL) CBC (01/20/2025 5:19 AM EST) WBC 3.52(L) 4.00 - 10.80 K/uL 01/20/2025 5:58 AM EST LAB[facility]ATORY [facility] RBC 3.24 3.85 - 5.15 M/uL 01/20/2025 5:58 AM EST LAB[facility]ATORY [facility] HGB 9.9(L) 12.0 - 15.3 g/dL 01/20/2025 5:58 AM EST LAB[facility]ORY [facility] HCT 31.2(L) 36.0 - 45.2 % 01/20/2025 5:58 AM EST LAB[facility]ORY [facility] MCV 96.3 81.5 - 97.5 fL 01/20/2025 5:58 AM EST LAB[facility] MCH 30.6 27.0 - 34.0 pg 01/20/2025 5:58 AM EST LAB[facility]ATORY [facility] MCHC 31.7 32.0 - 36.0 g/dL 01/20/2025 5:58 AM EST LAB[facility]ATORY [facility] RDW 14.5 11.5 - 15.5 % 01/20/2025 5:58 AM EST LAB[facility]ATORY [facility] PLT 132(L) 140 - 400 K/uL 01/20/2025 5:58 AM EST LAB[facility]ORY [facility] MPV 10.7 6.6 - 11.1 fL 01/20/2025 5:58 AM EST LAB[facility]ATORY [facility] nRBCs 0 <=0 /100 WBCs 01/20/2025 5:58 AM EST [facility] Blood Venous blood specimen / Unknown Venipuncture / Unknown 01/20/2025 5:19 AM EST 01/20/2025 5:30 AM EST Gina Munguia MD LAB BLOOD ORDERABLES Final Result [facility] [address] [place] [address] * (ABNORMAL) PT INR (01/20/2025 5:19 AM EST) Prothrombin Time 15.9(H) 11.6 - 15.2 seconds 01/20/2025 6:03 AM EST LABORATORY [facility] INR 1.3(H) 0.8 - 1.2 01/20/2025 6:03 AM EST LABORATORY C Blood Venous blood specimen / Unknown Venipuncture / Unknown 01/20/2025 5:19 AM EST 01/20/2025 5:30 AM EST Narrative LABORATORY [facility] - 01/20/2025 6:03 AM EST Warfarin Therapy INR: 2.0-3.0 conventional anticoagulation INR: 2.5-3.5 high intensity anticoagulation Gina Munguia MD LAB BLOOD ORDERABLES Final Result LABORATORY [facility] [address] [place] [address] * PHOSPHORUS (01/20/2025 5:19 AM EST) Phosphorus 4.2 2.5 - 4.8 mg/dL 01/20/2025 6:10 AM EST LABORATORY [facility] Blood Venous blood specimen / Unknown Venipuncture / Unknown 01/20/2025 5:19 AM EST 01/20/2025 5:30 AM EST Gina Munguia MD LAB BLOOD ORDERABLES Final Result LABORATORY [facility] [address] [place] [address] * MAGNESIUM (01/20/2025 5:19 AM EST) Magnesium 2.1 1.5 - 2.6 mg/dL 01/20/2025 6:10 AM EST LABORATORY [facility] Blood Venous blood specimen / Unknown Venipuncture / Unknown 01/20/2025 5:19 AM EST 01/20/2025 5:30 AM EST Gina Munguia MD LAB BLOOD ORDERABLES Final Result LABORATORY [facility] [address] [place] [address] * BASIC METABOLIC PANEL (01/20/2025 5:19 AM EST) BUN 9 6 - 20 mg/dL 01/20/2025 6:10 AM EST LAB[facility]ATORY [facility] CREATININE 0.6 0.5 - 1.0 mg/dL 01/20/2025 6:10 AM EST LAB[facility]ATORY [facility] EGFR >90 >=60 mL/min 01/20/2025 6:10 AM EST LAB[facility]ATORY [facility] Comment:eGFR is calculated b ased on the CKD-EPI 2020 equation. SODIUM 135 135 - 146 mmol/L 01/20/2025 6:10 AM EST LAB[facility]ORY [facility] POTASSIUM 3.7 3.5 - 5.1 mmol/L 01/20/2025 6:10 AM EST LAB[facility] CHLORIDE 100 98 - 107 mmol/L 01/20/2025 6:10 AM EST LAB[facility]ORY [facility] CO2 25 22 - 32 mmol/L 01/20/2025 6:10 AM EST LAB[facility]ORY [facility] ANION GAP 10 7 - 15 mmol/L 01/20/2025 6:10 AM EST LAB[facility] GLUCOSE 89 70 - 120 mg/dL 01/20/2025 6:10 AM EST LAB[facility] CALCIUM 9.5 8.4 - 10.2 mg/dL 01/20/2025 6:10 AM EST [facility] Blood Venous blood specimen / Unknown Venipuncture / Unknown 01/20/2025 5:19 AM EST 01/20/2025 5:30 AM EST Gina Munguia MD LAB BLOOD ORDERABLES Final Result LABORATORY [facility] [address] [place] [address] * (ABNORMAL) APTT (01/20/2025 5:19 AM EST) aPTT 95(H) 21 - 38 seconds 01/20/2025 6:07 AM EST LABORATORY [facility] Blood Venous blood specimen / Unknown Venipuncture / Unknown 01/20/2025 5:19 AM EST 01/20/2025 5:30 AM EST Narrative LABORATORY [facility] - 01/20/2025 6:07 AM EST Anticoagulation may affect testing. Refer to [employer] Test Catalog for a list of effects. us Kassi Dodson MD LAB BLOOD ORDERABLES Final R esult LABORATORY [facility] [address] [place] [address] * CTA TAVR GATED STUDY (01/19/2025 9:52 AM EST) Anatomical Region Laterality Modality Chest, Abdomen, Pelvis, Body Com puted Tomography 01/19/2025 5:46 PM EST Addenda Addendum by Allan Cat MD on 01/20/2025 7:22 PM EST ADDENDUM: Numerous small osseous lucencies seen throughout the axial and appendicular skeleton compatible with history of multiple myeloma. Largest lesion in the right superior iliac spine measures up to 14 millimeters. Additional prominent right 10th rib lesion is noted (series 11, image 292). Narrative 01/19/2025 5:43 PM EST EXAM: 1. CTA CHEST WITH CONTRAST 2. CTA ABDOMEN PELVIS WITH CONTRAST 3. CTA TMVR HISTORY: TMVR COMPARISON: 79 mL TECHNIQUE: 1. CTA chest with intravenous contrast was performed. MIP images were obtained and reviewed. 2. CTA abdomen pelvis with intravenous contrast was performed. MIP images were obtained and reviewed. 3. CTA TMVR CONTRAST: 79 ml intravenously. FINDINGS: CTA CHEST: PULMONARY ARTERIES: Normal in size. No large central or segmental pulmonary embolism. AORTA: Trileaflet aortic valve without annular calcifications. Carotid/axillo-subclavian arteries: 3 vessel aortic arch patent arch vessels. No significant stenosis. HEART: Severe cardiomegaly with marked bi-atrial enlargement. Status post mitral valve annuloplasty and tricuspid valve annuloplasty ring placements. Biventricular chamber enlargement. Severe dilatation of the left atrial appendage. No CT significant coronary artery atherosclerosis. Annulus measurement: 5S-EO-Tkktpprx(s): 24.3 mm 0Q-OR-Burhvrqt(s): 23.2 mm 3G-OY-Gtsvrudg(s): 31.7 mm 2D-Area(s): 5.97 cm2 2D-P(s): 90.2 mm 4Q-R-Ydnqzpjif(s): 62.8 mm 1I-A-Jyrbltdd(s): 27.4 mm 9B-LY-Pttdpzbi(s): 24.3 mm 0S-BY-Mgbneook(s): 23.6 mm 0M-FB-Tvynqndw(s): 32.0 mm 3D-P(s): 94.4 mm 8R-R-Bbmksnhfj(s): 64.7 mm 0E-D-Yuvrhhyc(s): 29.6 mm Embedded Geometry 29 mm, offset: 43.9 % Aaron LVOT Avg. Diameter: 23.2 mm Min. Diameter: 15.7 mm Max. Diameter: 31.8 mm Area: 4.23 cm Aortomitral angle: 134 deg. Aaron-Aortomitral angle: 108 deg. MEDIASTINUM/KAISER: No lymphadenopathy. Calcified right-sided thyroid nodule. CHEST WALL/AXILLA: Unremarkable. LUNGS/PLEURA: Scattered punctate ground-glass opacities in the upper lobes, likely related to pulmonary edema. Infectious/inflammatory etiology cannot be excluded. Bronchial wall thickening in the lower lobes with moderate left lower lobe atelectasis. Central airways are clear. No pleural effusion or pneumothorax. CTA ABDOMEN PELVIS: LIVER: Unremarkable. GALLBLADDER/BILE DUCTS: Cholelithiasis. PANCREAS: Unremarkable. GI TRACT: Fecalization of multiple loops of small bowel likely related to dysmotility. Marked thickening of the gastric wall, likely related to chronic gastritis. Scattered colonic diverticula. Marked colonic stool burden. Appendix is unremarkable. Padlock clip in the duodenum. SPLEEN: Unremarkable. LYMPH NODES: No lymphadenopathy. ADRENAL GLANDS: Unremarkable. KIDNEYS/URETERS: No hydronephrosis. Symmetric enhancement without mass. No ureteral calculus. URINARY BLADDER: Unremarkable. REPRODUCTIVE ORGANS: Uterus and adnexa are unremarkable by CT evaluation. VASCULATURE: Scattered atherosclerotic calcifications without aortic aneurysm. Celiac, SMA and ANDREW are patent. Single patent renal arteries. No significant iliofemoral atherosclerosis. Average min diameter abdominal aorta: 14.8 mm Average max diameter abdominal aorta: 16.0 mm Min left iliofemoral diameter: 8.32 mm Min right iliofemoral diameter: 8.25 mm Cannulation zone calcifications: Mild MISCELLANEOUS: No free fluid or free air. MUSCULOSKELETAL: Sternal wires from prior median sternotomy. Diffuse bony demineralization. No acute osseous abnormalities. IMPRESSION: Severe cardiomegaly with marked bi-atrial enlargement. Status post mitral valve annuloplasty and tricuspid valve annuloplasty ring placements. Biventricular chamber enlargement with severe dilatation of the left atrial appendage. TMVR measurements provided with a 29 mm embedded geometry with 43.9% offset. Aaron LVOT average diameter 23.2 mm. Aortomitral angle: 134 deg. No significant iliofemoral atherosclerosis. Minimal diameter of 8.3 mm bilaterally. Mild tortuosity. No CT significant coronary artery atherosclerosis. Patchy ground-glass opacities most notably in the upper lobes which may be related to pulmonary edema versus infection in the appropriate clinical setting. Procedure Note Allan Cat MD - 01/19/2025 EXAM: 1. CTA CHEST WITH CONTRAST 2. CTA ABDOMEN PELVIS WITH CONTRAST 3. CTA TMVR HISTORY: TMVR COMPARISON: 79 mL TECHNIQUE: 1. CTA chest with intravenous contrast was performed. MIP images wereobtained and reviewed. 2. CTA abdomen pelvis with intravenous contrast was performed. MIP imageswere obtained and reviewed. 3. CTA TMVR CONTRAST: 79 ml intravenously. FINDINGS: CTA CHEST: PULMONARY ARTERIES: Normal in size. No large central or segmentalpulmonary embolism. AORTA: Trileaflet aortic valve without annular calcifications. Carotid/axillo-subclavian arteries: 3 vessel aortic arch patent archvessels. No significant stenosis. HEART: Severe cardiomegaly with marked bi-atrial enlargement. Status postmitral valve annuloplasty and tricuspid valve annuloplasty ringplacements. Biventricular chamber enlargement. Severe dilatation of theleft atrial appendage. No CT significant coronary arteryatherosclerosis. Annulus measurement: 8X-TQ-Hmddxctv(s): 24.3 mm 8I-WR-Ndioqoap(s): 23.2 mm 6Z-DZ-Knuwjefx(s): 31.7 mm 2D-Area(s): 5.97 cm2 2D-P(s): 90.2 mm 9L-L-Hsczdlehg(s): 62.8 mm 2G-B-Xvrtpnlq(s): 27.4 mm 2S-WI-Ybgiyyvl(s): 24.3 mm 5W-UU-Jswjvkvm(s): 23.6 mm 5A-NR-Frdfaqqu(s): 32.0 mm 3D-P(s): 94.4 mm 6Y-C-Pobywgwct(s): 64.7 mm 7T-Q-Epxuuzbx(s): 29.6 mm Embedded Geometry 29 mm, offset: 43.9 % Aaron LVOT Avg. Diameter: 23.2 mm Min. Diameter: 15.7 mm Max. Diameter: 31.8 mm Area: 4.23 cm Aortomitral angle: 134 deg. Aaron-Aortomitral angle: 108 deg. MEDIASTINUM/KAISER: No lymphadenopathy. Calcified right-sided thyroidnodule. CHEST WALL/AXILLA: Unremarkable. LUNGS/PLEURA: Scattered punctate ground-glass opacities in the upperlobes, likely related to pulmonary edema. Infectious/inflammatory etiologycannot be excluded. Bronchial wall thickening in the lower lobes withmoderate left lower lobe atelectasis. Central airways are clear. Nopleural effusion or pneumothorax. CTA ABDOMEN PELVIS: LIVER: Unremarkable. GALLBLADDER/BILE DUCTS: Cholelithiasis. PANCREAS: Unremarkable. GI TRACT: Fecalization of multiple loops of small bowel likely related todysmotility. Marked thickening of the gastric wall, likely related tochronic gastritis. Scattered colonic diverticula. Marked colonic stoolburden. Appendix is unremarkable. Padlock clip in the duodenum. SPLEEN: Unremarkable. LYMPH NODES: No lymphadenopathy. ADRENAL GLANDS: Unremarkable. KIDNEYS/URETERS: No hydronephrosis. Symmetric enhancement without mass. Noureteral calculus. URINARY BLADDER: Unremarkable. REPRODUCTIVE ORGANS: Uterus and adnexa are unremarkable by CTevaluation. VASCULATURE: Scattered atherosclerotic calcifications without aorticaneurysm. Celiac, SMA and ANDREW are patent. Single patent renal arteries. Nosignificant iliofemoral atherosclerosis. Average min diameter abdominal aorta: 14.8 mm Average max diameter abdominal aorta: 16.0 mm Min left iliofemoral diameter: 8.32 mm Min right iliofemoral diameter: 8.25 mm Cannulation zone calcifications: Mild MISCELLANEOUS: No free fluid or free air. MUSCULOSKELETAL: Sternal wires from prior median sternotomy. Diffuse bonydemineralization. No acute osseous abnormalities. IMPRESSION: Severe cardiomegaly with marked bi-atrial enlargement. Status post mitralvalve annuloplasty and tricuspid valve annuloplasty ring placements.Biventricular chamber enlargement with severe dilatation of the leftatrial appendage. TMVR measurements provided with a 29 mm embedded geometry with 43.9%offset. Aaron LVOT average diameter 23.2 mm. Aortomitral angle: 134 deg. No significant iliofemoral atherosclerosis. Minimal diameter of 8.3 mmbilaterally. Mild tortuosity. No CT significant coronary artery atherosclerosis. Patchy ground-glass opacities most notably in the upper lobes which may berelated to pulmonary edema versus infection in the appropriate clinicalsetting. Gina Munguia MD RAD CT Edited Res ult - Final * (ABNORMAL) APTT (01/19/2025 6:58 AM EST) aPTT 97(H) 21 - 38 seconds 01/19/2025 7:46 AM EST LAB[facility]ATORY [facility] Blood Venous blood specimen / Unknown Venipuncture / Unknown 01/19/2025 6:58 AM EST 01/19/2025 7:06 AM EST Narrative LABORATORY [facility] - 01/19/2025 7:46 AM EST Anticoagulation may affect testing. Refer to [employer] Test Catalog for a list of effects. Kassi Dodson MD LAB BLOOD ORDERABLES Final R esult LABORATORY [facility] [address] [place] [address] * (ABNORMAL) DIFFERENTIAL, AUTOMATED (01/19/2025 4:57 AM EST) WBC 3.62(L) 4.00 - 10.80 K/uL 01/19/2025 5:46 AM EST LAB[facility]ATORY [facility] Neutrophils % 48.6 40.0 - 75.0 % 01/19/2025 5:46 AM EST LAB[facility] Lymphocytes % 34.8 18.0 - 42.0 % 01/19/2025 5:46 AM EST LAB[facility] Monocytes % 13.5(H) 1.0 - 11.0 % 01/19/2025 5:46 AM EST LAB[facility] Eosinophils % 2.2 0.0 - 6.0 % 01/19/2025 5:46 AM EST LAB[facility] Basophils % 0.6 0.0 - 2.0 % 01/19/2025 5:46 AM EST LAB[facility] Immature Granulocytes % 0.3 0.0 - 2.0 % 01/19/2025 5:46 AM EST LAB[facility] Absolute Neutrophils 1.76(L) 1.80 - 7.70 K/uL 01/19/2025 5:46 AM EST LAB[facility] Absolute Lymphocytes 1.26 1.00 - 4.80 K/ul 01/19/2025 5:46 AM EST LAB[facility] Absolute Monocytes 0.49 0.00 - 1.10 K/uL 01/19/2025 5:46 AM EST LAB[facility] Absolute Eosinophils 0.08 0.00 - 0.70 K/uL 01/19/2025 5:46 AM EST LAB[facility] Absolute Basophils 0.02 0.00 - 0.20 K/uL 01/19/2025 5:46 AM EST LAB[facility]AT[facility] Absolute Immature Granulocytes 0.01 0.00 - 0.20 K/uL 01/19/2025 5:46 AM EST [facility] Blood Venous blood specimen / Unknown Venipuncture / Unknown 01/19/2025 4:57 AM EST 01/19/2025 5:07 AM EST Gina Munguia MD LAB BLOOD ORDERABLES Final Result [facility] [address] [place], [place] [id number] * (ABNORMAL) CBC (01/19/2025 4:57 AM EST) WBC 3.62(L) 4.00 - 10.80 K/uL 01/19/2025 5:28 AM EST LAB[facility] RBC 3.17 3.85 - 5.15 M/uL 01/19/2025 5:28 AM EST LAB[facility] HGB 9.7(L) 12.0 - 15.3 g/dL 01/19/2025 5:28 AM EST [facility] HCT 30.7(L) 36.0 - 45.2 % 01/19/2025 5:28 AM EST [facility] MCV 96.8 81.5 - 97.5 fL 01/19/2025 5:28 AM EST LABORATORY [facility] MCH 30.6 27.0 - 34.0 pg 01/19/2025 5:28 AM EST LABORATORY [facility] MCHC 31.6 32.0 - 36.0 g/dL 01/19/2025 5:28 AM EST LABORATORY [facility] RDW 14.6 11.5 - 15.5 % 01/19/2025 5:28 AM EST LABORATORY [facility] PLT 133(L) 140 - 400 K/uL 01/19/2025 5:28 AM EST LABORATORY [facility] MPV 10.0 6.6 - 11.1 fL 01/19/2025 5:28 AM EST LABORATORY [facility] nRBCs 0 <=0 /100 WBCs 01/19/2025 5:28 AM EST LABORATORY [facility] Blood Venous blood specimen / Unknown Venipuncture / Unknown 01/19/2025 4:57 AM EST 01/19/2025 5:07 AM EST Gina Munguia MD LAB BLOOD ORDERABLES Final Result LABORATORY [facility] [address] [place] [address] * (ABNORMAL) PT INR (01/19/2025 4:57 AM EST) [facility] Prothrombin Time 16.7(H) 11.6 - 15.2 seconds 01/19/2025 5:32 AM EST LABORATORY [facility] INR 1.3(H) 0.8 - 1.2 01/19/2025 5:32 AM EST LABORATORY [facility] Blood Venous blood specimen / Unknown Venipuncture / Unknown 01/19/2025 4:57 AM EST 01/19/2025 5:07 AM EST Narrative [facility] - 01/19/2025 5:32 AM EST Warfarin Therapy INR: 2.0-3.0 conventional anticoagulation INR: 2.5-3.5 high intensity anticoagulation Gina Munguia MD LAB BLOOD ORDERABLES Final Result LABORATORY [facility] [address] [place] [address] * PHOSPHORUS (01/19/2025 4:57 AM EST) Phosphorus 3.9 2.5 - 4.8 mg/dL 01/19/2025 5:38 AM EST [facility] Blood Venous blood specimen / Unknown Venipuncture / Unknown 01/19/2025 4:57 AM EST 01/19/2025 5:07 AM EST Gina Munguia MD LAB BLOOD ORDERABLES Final Result Performing Organization Address [facility] Co de Phone Number LABORATORY [facility] [address] [place] [address] * MAGNESIUM (01/19/2025 4:57 AM EST) Pathologist [facility] Magnesium 2.2 1.5 - 2.6 mg/dL 01/19/2025 5:38 AM EST LABORATORY [facility] Blood Venous blood specimen / Unknown Venipuncture / Unknown 01/19/2025 4:57 AM EST 01/19/2025 5:07 AM EST Gina Munugia MD LAB BLOOD ORDERABLES Final Result Performing Organization Address [facility] de Phone Number LABORATORY [facility] [address] [place] [address] * BASIC METABOLIC PANEL (01/19/2025 4:57 AM EST) BUN 7 6 - 20 mg/dL 01/19/2025 5:38 AM EST LABORATORY [facility] CREATININE 0.6 0.5 - 1.0 mg/dL 01/19/2025 5:38 AM EST LABORATORY [facility] EGFR >90 >=60 mL/min 01/19/2025 5:38 AM EST LABORATORY GM Comment:eGFR is calculated b ased on the CKD-EPI 2020 equation. SODIUM 137 135 - 146 mmol/L 01/19/2025 5:38 AM EST LABORATORY [facility] POTASSIUM 4.1 3.5 - 5.1 mmol/L 01/19/2025 5:38 AM EST LABORATORY [facility] CHLORIDE 102 98 - 107 mmol/L 01/19/2025 5:38 AM EST LABORATORY C CO2 24 22 - 32 mmol/L 01/19/2025 5:38 AM EST LABORATORY [facility] ANION GAP 11 7 - 15 mmol/L 01/19/2025 5:38 AM EST LABORATORY [facility] GLUCOSE 87 70 - 120 mg/dL 01/19/2025 5:38 AM EST LABORATORY [facility] CALCIUM 9.6 8.4 - 10.2 mg/dL 01/19/2025 5:38 AM EST LABORATORY [facility] Blood Venous blood specimen / Unknown Venipuncture / Unknown 01/19/2025 4:57 AM EST 01/19/2025 5:07 AM EST Gina Munguia MD LAB BLOOD ORDERABLES Final Result Performing Organization Address [facility] Phone Number LABORATORY [place] [address] [place] [address] * HEMOGLOBIN A1C (01/19/2025 4:57 AM EST) Hemoglobin A1C 5.2 4.0 - 5.6 % 01/19/2025 5:26 AM EST LAB[facility]ATORY [facility] Comment:The use of HbA1c to monitor glycemic status is based on normal hemoglobin and HbA composition. This test should not be used in patients with abnormal hemoglobin that affects the half life of the red blood cell or the in vivo glycation rates. Estimated Average Glucose 103 <126 mg/dL 01/19/2025 5:26 AM EST LABORATORY [facility] Blood Venous blood specimen / Unknown Venipuncture / Unknown 01/19/2025 4:57 AM EST 01/19/2025 5:07 AM EST Gina Munguia MD LAB BLOOD ORDERABLES Final Result Performing Organization Address City/[facility] Co de Phone Number LABORATORY [facility] [address] [place] [address] * (ABNORMAL) LIPID PANEL WITHOUT DIRECT LDL (01/19/2025 4:57 AM EST) Triglycerides 61 <=174 mg/dL 01/19/2025 5:38 AM EST LABORATORY [facility] Comment: Triglyceride Reference Ranges (mg/dL): <150 Acceptable 150-174 Borderline high 175-499 High >=500 Very high Cholesterol 131 <200 mg/dL 01/19/2025 5:38 AM EST LABORATORY [facility] Comment: Total Cholesterol Reference Ranges (mg/dL): <200 Desirable 200-239 Borderline high >=240 High HDL Cholesterol 39(L) >49 mg/dL 5:38 AM EST LABORATORY [facility] Comment: HDL Cholesterol Reference Ranges (mg/dL): >=60 High (Desirable) <50 Low (Undesirable) For Females <40 Low (Undesirable) For Males Non-HDL Cholesterol 92 <=159 mg/dL 01/19/2025 5:38 AM EST LABORATORY [facility] Comment: Non-HDL Cholesterol Reference Range (mg/dL): <100 Target level for high risk ASCVD patient <130 Optimal for general population 130-159 Near optimal for general population 160-189 Borderline High 190-219 High >=220 Very High LDL Cholesterol 80 <=129 mg/dL 01/19/2025 5:38 AM EST LABORATORY [facility] Comment: LDL Cholesterol Reference Ranges (mg/dL): <70 Target level for high risk ASCVD patient <100 Optimal for general population 100-129 Near optimal for general population 130-159 Borderline high 160-189 High >=190 Very high Blood Venous blood specimen / Unknown Venipuncture / Unknown 01/19/2025 4:57 AM EST 01/19/2025 5:07 AM EST Gina Munguia MD LAB BLOOD ORDERABLES Final Result LABORATORY [facility] [address] [place] [address] * (ABNORMAL) APTT (01/19/2025 12:59 AM EST) aPTT 92(H) 21 - 38 seconds 01/19/2025 1:46 AM EST LABORATORY [facility] Blood Venous blood specimen / Unknown Venipuncture / Unknown 01/19/2025 12:59 AM EST 01/19/2025 1:02 AM EST Narrative LABORATORY [facility] - 01/19/2025 1:46 AM EST Anticoagulation may affect testing. Refer to [employer] Test Catalog for a list of effects. Gina Munguia MD LAB BLOOD ORDERABLES Final Result Performing Organization Address [facility] Co de Phone Number LABORATORY [facility] [address] [place] [address] * HEPARIN, UNFRACTIONATED (01/18/2025 4:57 PM EST) Pathologist [facility] Heparin, Unfractionated <0.10 <0.10 IU/mL 01/18/2025 5:18 PM EST LABORATORY [facility] Comment: Unfractionated therapeutic ranges for Anti Xa activity: For Cardiac/Neurologic treatment: 0.3 to 0.6 IU/mL. For treatment of DVT or Pulmonary Embolism: 0.3 to 0.7 IU/mL. Blood Venous blood specimen / Unknown Venipuncture / Unknown 01/18/2025 4:57 PM EST 01/18/2025 5:02 PM EST Gina Munguia MD LAB BLOOD ORDERABLES Final Result Performing Organization Address [facility] Co de Phone Number LABORATORY [facility] [address] [place] [address] * (ABNORMAL) CBC (01/18/2025 4:57 PM EST) Pathologist [facility] WBC 3.66(L) 4.00 - 10.80 K/uL 01/18/2025 5:30 PM EST LABORATORY [facility] RBC 3.32 3.85 - 5.15 M/uL 01/18/2025 5:30 PM EST LABORATORY [facility] HGB 10.4(L) 12.0 - 15.3 g/dL 01/18/2025 5:30 PM EST LAB[facility]ATORY [facility] HCT 31.9(L) 36.0 - 45.2 % 01/18/2025 5:30 PM EST LAB[facility]ORY [facility] MCV 96.1 81.5 - 97.5 fL 01/18/2025 5:30 PM EST LAB[facility]ORY [facility] MCH 31.3 27.0 - 34.0 pg 01/18/2025 5:30 PM EST LABORATORY [facility] MCHC 32.6 32.0 - 36.0 g/dL 01/18/2025 5:30 PM EST LABORATORY [facility] RDW 14.6 11.5 - 15.5 % 01/18/2025 5:30 PM EST LABORATORY [facility] PLT 140 140 - 400 K/uL 01/18/2025 5:30 PM EST LABORATORY [facility] MPV 10.3 6.6 - 11.1 fL 01/18/2025 5:30 PM EST LABORATORY [facility] nRBCs 0 <=0 /100 WBCs 01/18/2025 5:30 PM EST LABORATORY [facility] Blood Venous blood specimen / Unknown Venipuncture / Unknown 01/18/2025 4:57 PM EST 01/18/2025 5:02 PM EST Gina Munguia MD LAB BLOOD ORDERABLES Final Result LABORATORY [place] [address] [place] [address] * (ABNORMAL) APTT (01/18/2025 4:57 PM EST) aPTT 47(H) 21 - 38 seconds 01/18/2025 5:18 PM EST LABORATORY [facility] Blood Venous blood specimen / Unknown Venipuncture / Unknown 01/18/2025 4:57 PM EST 01/18/2025 5:02 PM EST Narrative LABORATORY C - 01/18/2025 5:18 PM EST Anticoagulation may affect testing. Refer to [employer] Test Catalog for a list of effects. Gina Munguia MD LAB BLOOD ORDERABLES Final Result LABORATORY [place] [address] [place] [address] * (ABNORMAL) PT INR (01/18/2025 4:57 PM EST) Prothrombin Time 16.6(H) 11.6 - 15.2 seconds 01/18/2025 5:15 PM EST LABORATORY [facility] INR 1.3(H) 0.8 - 1.2 01/18/2025 5:15 PM EST LABORATORY [facility] Blood Venous blood specimen / Unknown Venipuncture / Unknown 01/18/2025 4:57 PM EST 01/18/2025 5:02 PM EST Narrative LABORATORY [facility] - 01/18/2025 5:15 PM EST Warfarin Therapy INR: 2.0-3.0 conventional anticoagulation INR: 2.5-3.5 high intensity anticoagulation us Gina Munguia MD LAB BLOOD ORDERABLES Final Result LABORATORY [facility] [address] [place] [address] * (ABNORMAL) AVOXIMETER, POINT OF CARE (01/18/2025 11:38 AM EST) Draw Site Aorta 01/19/2025 7:43 AM EST [employer] Hgb, Measured (AVOX) 9.4(L) 12.0 - 15.3 g/dL 01/19/2025 7:43 AM EST [employer] %O2HB (AVOX) 84.7(L) 92.0 - 100.0 % 01/19/2025 7:43 AM EST [employer] O2 Content (AVOX) 11.0 1.1 - 20.9 mL/dL 01/19/2025 7:43 AM EST [employer] Blood Arterial Line / Unknown 01/18/2025 11:38 AM EST 01/19/2025 7:43 AM EST us Kassi Dodson MD LAB POINT OF CARE TEST DOCKE D DEVICE ORDERABLES Final Result [facility] [address] [place] [address] * (ABNORMAL) AVOXIMETER, POINT OF CARE (01/18/2025 11:20 AM EST) Draw Site Pulmonary Artery 01/19/2025 7:40 AM EST [facility] Hgb, Measured (AVOX) 9.7(L) 12.0 - 15.3 g/dL 01/19/2025 7:40 AM EST [facility] %O2HB (AVOX) 47.5(L) 92.0 - 100.0 % 01/19/2025 7:40 AM EST [facility] O2 Content (AVOX) 6.4 1.1 - 20.9 mL/dL 01/19/2025 7:40 AM EST [facility] Blood Arterial Line / Unknown 01/18/2025 11:20 AM EST 01/19/2025 7:29 AM EST us Kassi Dodson MD LAB POINT OF CARE TEST DOCKE D DEVICE ORDERABLES Final Result [facility] [address] [place] [address] * (ABNORMAL) RENAL FUNCTION PANEL (01/18/2025 10:18 AM EST) BUN 8 6 - 20 mg/dL 01/18/2025 11:07 AM EST LAB[facility]ATORY [facility] CREATININE 0.6 0.5 - 1.0 mg/dL 01/18/2025 11:07 AM EST LAB[facility]ATORY [facility] EGFR >90 >=60 mL/min 01/18/2025 11:07 AM EST LAB[facility]ATORY [facility] Comment:eGFR is calculated b ased on the CKD-EPI 2020 equation. SODIUM 135 135 - 146 mmol/L 01/18/2025 11:07 AM EST LAB[facility]ORY [facility] POTASSIUM 4.8 3.5 - 5.1 mmol/L 01/18/2025 11:07 AM EST LAB[facility] CHLORIDE 99 98 - 107 mmol/L 01/18/2025 11:07 AM EST LAB[facility] CO2 26 22 - 32 mmol/L 01/18/2025 11:07 AM EST LAB[facility] ANION GAP 10 7 - 15 mmol/L 01/18/2025 11:07 AM EST [facility] GLUCOSE 92 70 - 120 mg/dL 01/18/2025 11:07 AM EST LAB[facility] CALCIUM 10.0 8.4 - 10.2 mg/dL 01/18/2025 11:07 AM EST LAB[facility]ATORY [facility] Albumin 3.4(L) 3.8 - 5.0 g/dL 01/18/2025 11:07 AM EST LAB[facility]ATORY [facility] Phosphorus 3.6 2.5 - 4.8 mg/dL 01/18/2025 11:07 AM EST LAB[facility]ORY [facility] Blood Venous blood specimen / Unknown Venipuncture / Unknown 01/18/2025 10:18 AM EST 01/18/2025 10:36 AM EST us Julian LEE LAB BLOOD ORDERABLES Fi nal Result [facility]ORY [facility] [address] [place] [address] * (ABNORMAL) CBC (01/18/2025 10:18 AM EST) WBC 4.43 4.00 - 10.80 K/uL 01/18/2025 10:48 AM EST LAB[facility]ATORY [facility] RBC 3.54 3.85 - 5.15 M/uL 01/18/2025 10:48 AM EST LAB[facility]ATORY [facility] HGB 10.8(L) 12.0 - 15.3 g/dL 01/18/2025 10:48 AM EST LAB[facility]ORY [facility] HCT 34.4(L) 36.0 - 45.2 % 01/18/2025 10:48 AM EST LAB[facility] MCV 97.2 81.5 - 97.5 fL 01/18/2025 10:48 AM EST LAB[facility] MCH 30.5 27.0 - 34.0 pg 01/18/2025 10:48 AM EST LAB[facility] MCHC 31.4 32.0 - 36.0 g/dL 01/18/2025 10:48 AM EST LAB[facility] RDW 14.6 11.5 - 15.5 % 01/18/2025 10:48 AM EST LAB[facility] PLT 143 140 - 400 K/uL 01/18/2025 10:48 AM EST LAB[facility] MPV 10.2 6.6 - 11.1 fL 01/18/2025 10:48 AM EST LAB[facility]ATORY [facility] nRBCs 0 <=0 /100 WBCs 01/18/2025 10:48 AM EST LABORATORY [facility] Blood Venous blood specimen / Unknown Venipuncture / Unknown 01/18/2025 10:18 AM EST 01/18/2025 10:36 AM EST Julian LEE LAB BLOOD ORDERABLES Fi nal Result [facility]ORY [facility] [address] [place] [address] * CARDIAC CATHETERIZATION REPORT (01/18/2025) DATE OF PROCEDURE 01/18/2025 [facility] DIAGNOSTIC Melinda Calderon MD [facility] CONCLUSIONS * The coronary arteries are angiographically normal. * The right atrial pressures measured were high. * Pulmonary hypertension is moderate. * Pulmonary saturation is low. * The pulmonary wedge pressure was very high. * Access was difficult due to other problems and see report. rhc ? PW: 25 ? PA 61/20 ? RV 56/8 ? RA 10 ? 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] Coronary atherosclerosis of [place] coronary artery Pulmonary hypertension, unspecified (HCC) [I27.20] Cardiomegaly Other diseases of pulmonary vessels (HCC) Emphysema, unspecified (HCC) Presence of prosthetic heart valve Heart valve replaced by other means Paroxysmal A-fib (HCC) Atrial fibrillation Hypertension goal BP (blood pressure) < 130/80 Unspecified essential hypertension H/O mitral valve repair Personal history of surgery to heart and great vessels, presenting hazards to health Hx of tricuspid valve repair Personal history of surgery to heart and great vessels, presenting hazards to health Hyperlipidemia LDL goal <70 Other and unspecified hyperlipidemia Mitral valve insufficiency Mitral valve disorders IgG gammopathy Monoclonal paraproteinemia Normocytic anemia Anemia, unspecified documented in this encounter Administered Medications Inactive Administered Medications - up to 3 most recent administrations Medication Order MAR Action Action Date Dose Rate Site Acetaminophen (Tylenol) tab 650 mg 650 mg, Oral, Q4H PRN Pain, Moderate, Pain, Mild, Starting on Sat01/18/25 at 1652, Until Kailey 01/21/25 at 2346, Maximum of 4 grams (4000 mg) per day. Given 01/18/2025 5:08 PM EST 650 mg amLODIPine (Norvasc) tab 2.5 mg 2.5 mg, Oral, Daily(AM), First dose on Sat01/19/25 at 0900, Until Discontinued Given 01/21/2025 8:00 AM EST 2.5 mg Given 01/20/2025 8:04 AM EST 2.5 mg Given 01/19/2025 8:06 AM EST 2.5 mg Apixaban (Eliquis) tab 5 mg 5 mg, Oral, BID (.AM/PM), First dose on Sat01/20/25 at 1700, Until Discontinued Given 01/21/2025 8:01 AM EST 5 mg Given 01/20/2025 5:10 PM EST 5 mg aspirin chew tab 324 mg 324 mg, Oral, ONCE, On Sat01/18/25 at 1030, For 1 dose, Pre-Op Given 01/18/2025 10:37 AM EST 324 mg Digoxin (Lanoxin) tab 125 mcg 125 mcg, Oral, Daily(AM), First dose on Sat01/19/25 at 0900, Until Discontinued, Hold For HR Less than 60 and notify service if dose is held Given 01/21/2025 8:01 AM EST 125 mcg Given 01/20/2025 8:04 AM EST 125 mcg Given 01/19/2025 8:06 AM EST 125 mcg fentaNYL (PF) inj 50 mcg 50 mcg, IV Push, PRN Pain, Severe, Starting on Sat01/18/25 at 1103, Until Sat01/18/25 at 1302, For 2 hours, To be administered in Cardiac Butadiene Convertor Operator intra-procedure only When given IV Push its recommended that the dose be given over 3 to 5 minutes., Intra-Op Given 01/18/2025 11:34 AM EST 50 mcg Given 01/18/2025 11:09 AM EST 50 mcg Furosemide (Lasix) inj 40 mg 40 mg, IV Push, ONCE, On Sat01/20/25 at 1400, For 1 dose Given 01/20/2025 2:35 PM EST 40 mg Furosemide (Lasix) tab 40 mg 40 mg, Oral, Daily(AM), First dose on Sat01/19/25 at 0900, Until Discontinued Given 01/21/2025 8:01 AM EST 40 mg Given 01/20/2025 8:04 AM EST 40 mg Given 01/19/2025 8:06 AM EST 40 mg hEParin 25,000 units in 250 mL (aPTT-Cardiac) infusion Intravenous, at 0-18.24 mL/hr, Start heparin as soon as baseline labs are drawn. Please select this medication from the infusion pump library! Concentration: 100 units/mL Expires 96 hours after spiking on (date) at (hour) , TITRATE, Starting on Sat01/18/25 at 1645, Until Sat01/20/25 at 1622 Rate Verify 01/20/2025 3:00 PM EST 12 Units/kg/hr 7.29 mL/hr Rate Verify 01/20/2025 11:00 AM EST 12 Units/kg/hr 7.29 mL /hr Rate Verify 01/20/2025 7:15 AM EST 12 Units/kg/hr 7.29 mL/ hr Iopamidol (Isovue 370) inj 40 mL 40 mL, Intracoronary, ONCE, On Sat01/18/25 at 1215, For 1 dose, Intra-Op Given 01/18/2025 11:43 AM EST 40 mL Iopamidol (Isovue 370) inj 80 mL 80 mL, Intravenous, ONCE, On Sat01/19/25 at 1030, For 1 dose, Radiology Medication Routing (Non-IR) Given 01/19/2025 10:30 AM EST 79 mL melatonin tab 6 mg 6 mg, Oral, HS, First dose on Sat01/18/25 at 2030, Until Discontinued Given 01/20/2025 9:02 PM EST 6 mg Given 01/19/2025 9:06 PM EST 6 mg Given 01/18/2025 9:34 PM EST 6 mg metoprolol succinate XL (toPROL XL) tab 50 mg 50 mg, Oral, BID (.AM/PM), First dose on Sat01/18/25 at 2100, Until Discontinued, Hold for HR less than 60 or SBP below 100 and notify service if dose is held This med should NOT be Crushed or Chewed. Given 01/21/2025 8:00 AM EST 50 mg Given 01/20/2025 9:02 PM EST 50 mg Given 01/20/2025 8:04 AM EST 50 mg midazolam (Versed) 2 MG/2ML inj 1 mg 1 mg, IV Push, PRN Anxiety, Starting on Sat01/18/25 at 1103, Until Sat01/18/25 at 1302, For 2 hours, To be administered in Cardiac Butadiene Convertor Operator intra-procedure only, Intra-Op Given 01/18/2025 11:34 AM EST 1 m g Given 01/18/2025 11:09 AM EST 1 mg NSS infusion Intravenous, at 100 mL/hr, CONTINUOUS, Starting on Sat01/18/25 at 1030, Until Sat01/18/25 at 2029, Pre-Op New Bag 01/18/2025 10:30 AM EST 100 mL/hr potassium chloride ER tab 40 mEq 40 mEq, Oral, ONCE, On Sat01/20/25 at 0715, For 1 dose, This med should NOT be Crushed or Chewed Given 01/20/2025 7:01 AM EST 40 mEq senna-docusate (Senokot-S) 1 Tablet 1 Tablet, Oral, Daily(AM), First dose on Sat01/21/25 at 0900, Until Discontinued documented in this encounter Active and Recently Administered Medications Times are shown in EST. Scheduled Medication Order 01/19/2025 01/20/2025 01/21/2025 amLODIPine (Norvasc) tab 2.5 mg 2.5 mg, Oral, Daily(AM), First dose on Sat01/19/25 at 0900, Until Discontinued 08 (Given - Provider: Bartolo Lane RN) 0804 (Given - Provider: Bartolo Lane RN) 0800 (Given - Provider: Iraj Valerio RN) Apixaban (Eliquis) tab 5 mg 5 mg, Oral, BID (.AM/PM), First dose on Sat01/20/25 at 1700, Until Discontinued 171 (Given - Provider: SN Kirk) 08 (Given - Provider: Iraj Valerio RN) Digoxin (Lanoxin) tab 125 mcg 125 mcg, Oral, Daily(AM), First dose on Sat01/19/25 at 0900, Until Discontinued, Hold For HR Less than 60 and notify service if dose is held 08 (Given - Provider: Bartolo Lane RN) 803 (Given - Provider: Bartolo Lane RN) 800 (Given - Provider: Iraj Valerio RN) Furosemide (Lasix) inj 40 mg (COMPLETED) 40 mg, IV Push, ONCE, On Sat01/20/25 at 1400, For 1 dose 1435 (Given - Provider: Bartolo Lane RN) Furosemide (Lasix) tab 40 mg 40 mg, Oral, Daily(AM), First dose on Sat01/19/25 at 0900, Until Discontinued 805 (Given - Provider: Bartolo Lane RN) 803 (Given - Provider: Bartolo Lane RN) 800 (Given - Provider: Iraj Valerio RN) Iopamidol (Isovue 370) inj 80 mL (COMPLETED) 80 mL, Intravenous, ONCE, On Sat01/19/25 at 1030, For 1 dose, Radiology Medication Routing (Non-IR) 1030 (Given - Provider: Julius Kendrick, RT) melatonin tab 6 mg 6 mg, Oral, HS, First dose on Sat01/18/25 at 2030, Until Discontinued 2105 (Given - Provider: Amy Brower RN) 2101 (Given - Provider: SN Kirk) metoprolol succinate XL (toPROL XL) tab 50 mg 50 mg, Oral, BID (.AM/PM), First dose on Sat01/18/25 at 2100, Until Discontinued, Hold for HR less than 60 or SBP below 100 and notify service if dose is held This med should NOT be Crushed or Chewed. 08 (Given - Provider: Bartolo Lane RN)2105 (Given - Provider: Amy Brower RN) 803 (Given - Provider: Bartolo Lane RN)2102 (Given - Provider: SN Kirk) 0800 (Given - Provider: Iraj Valerio, GEMMA) potassium chloride ER tab 40 mEq (COMPLETED) 40 mEq, Oral, ONCE, On Sat01/20/25 at 0715, For 1 dose, This med should NOT be Crushed or Chewed 0701 (Given - Provider: Amy Brower RN) senna-docusate (Senokot-S) 1 Tablet 1 Tablet, Oral, Daily(AM), First dose on Sat01/21/25 at 0900, Until Discontinued 0800 (Not Given - Provider: Iraj Valerio, RN - Reason: Parameter(s) Not Met) Continuous Medication Order 01/19/2025 01/20/2025 01/21/2025 hEParin 25,000 units in 250 mL (aPTT-Cardiac) infusion (CANCELED) Intravenous, at 0-18.24 mL/hr, Start heparin as soon as baseline labs are drawn. Please select this medication from the infusion pump library! Concentration: 100 units/mL Expires 96 hours after spiking on (date) at (hour) , TITRATE, Starting on Sat01/18/25 at 1645, Until Sat01/20/25 at 1622 0153 (Rate Verify - Provider: Deonna Salgado RN)0633 (Rate Verify - Provider: Deonna Salgado RN)0704 (Nurse Change - Provider: Deonna Salgado RN)0809 (Rate Verify - Provider: Bartolo Lane RN)0948 (Paused - Provider: Amy Brower RN)1019 (Restarted - Provider: Amy Brower RN)1907 (Nurse Change - Provider: Bartolo Lane RN) 0043 (New Bag - Provider: Amy Brower RN)0714 (Nurse Change - Provider: Amy Brower RN)0715 (Rate Verify - Provider: Amy Brower RN)1100 (Rate Verify - Provider: Bartolo Lane RN)1500 (Rate Verify - Provider: Bartolo Lane, RN)1622 (Stopped - Provider: Bartolo Lane RN) PRN Medication Order 01/19/2025 01/20/202501/21/2025 Acetaminophen (Tylenol) tab 650 mg 650 mg, Oral, Q4H PRN Pain, Moderate, Pain, Mild, Starting on 01/18/25 at 1652, Until Kailey 01/21/25 at 2346, Maximum of 4 grams (4000 mg) per day. documented in this encounter Advance Directives * Full Code (Latest Code Status on File) Date Activated Date Inactivated Comments 01/18/2025 12:48 PM 01/21/2025 11:46 PM This order reflects the patients wishes and were consensually agreed upon. Question Answer Comments Discussion of Advance Direct catarina occurred with: Not Discussed due to patient's condition Care Teams Contract Admin Relationship Specialty Start Date End Date Zuleima Garcia MD [address] [facility] [place] [address] PCP - General Internal Medicine 08/28/24 documented as of this encounter
--- OUTSIDE RECORDS SUMMARY | 2025-02-13 00:42 | External Medical Summary | Summary of Care ---
Author Name Unknown Organization [facility] Address [address] [place] [address] Phone [phone] Care Team Providers Care Powerplant Operator Name Role Phone Zuleima Garcia MD Primary Care Provider + Reason for Visit * Reason Onset Date Comments Procedure 01/22/2025 Encounter Details Date Type Department Care Team (Late st Contact Info) Description 01/22/2025 Telephone CRS [facility], Cardiac Recovery Suite, [facility] [address] [place] [address] Desire Leon, supplier manager (/) Allergies Active Allergy Reactions Criticality Noted Date [...] mouth in the morning. In the morning.. Active Magnesium 100 MG Oral Tablet Take [...] mRNA, LNP-s, No Pre serve, 2-Dose Series ([employer]) 11/04/2021,02/14/2021,01/24/2021 Covid-19, Mrna, Lnp-s, Pf, B ivalent, 30 Mcg, IM, 12 yrs and above ([employer]) 08/25/2022 Pneumococcal Conjugate Vacc, 13 Valent (Prevnar) [...] No 08/05/2024 Does the household have a [facility] source of income? (Household - for ages [...] encounter Miscellaneous Notes * Telephone Encounter - Desire Leon RN - 01/22/2025 11:51 AM EST Attempted to call daughter multiple times throughout the morning today, no answer VM left RENAN Wogn Interventional Valve Nurse Navigator documented in this encounter Plan of Treatment Upcoming Encounters Date Type Department Care Team (Latest Contact Info) Description 01/27/2025 9:00 AM EST Hospital Encounter [facility]S [facility], Cardiac Recovery Suite Waiting Unit, [address] [place] [address] Nelson Mariee MD [address] [place] [address] 01/27/2025 9:00 AM EST - 01/27/2025 10:00 AM EST Surgery CRS Waiting [facility], Cardiac Recovery Suite Waiting Unit, [address] [place] [address] Nelson Mariee MD [address] [place] [address] TRANSCATHETER 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; PERCUTANEOUS APPROACH, INCLUDING TRANSSEPTAL PUNCTURE, WHEN PERFORMED 01/27/2025 9:00 AM EST Office Visit Cardiology [facility] [address] [place] [address] [facility] [address] [place] [address] 04/01/2025 9:20 AM EDT Office Visit General Internal Medicine [facility] [address] [facility] [place] [address] Zuleima Garcia MD [address] [facility] [place] [address] 04/01/2025 11:00 AM EDT [facility] [address] [place] [address] Daiana Anne CRNP [address] [place] [address] Scheduled Procedures Name Priority Associated Diagnoses Date/Ti sd TRANSCATHETER MITRAL VALVE IMPLANTATION/REPLACEMENT (TMVI) WITH PROSTHETIC [...] D LEVEL ONCE IN A LIFETIME-USE SMARTSET# [id number] Completed 01/12/2023, 06/03/2021, 08/16/2018 Influenza Vaccine (FLU [...] this encounter Medical Devices Implanted Type Area Lubricating Engineer Device Identifier Shelf Expiration Date Model / Serial / Lot Cath Thermodilution 6fr - [id number] Implanted:Qty: 1 on 01/18/2025 by Melinda Jin MD at [facility] [email or web address] DARYL [id number] 06/24/2026 [id number] / / [id number] documented as of this encounter Advance Directives * Full Code (Latest Code Status on File) Date Activated Date Inactivated Comments 01/18/2025 12:48 PM 01/21/2025 11:46 PM This order reflects the patients wishes and were consensually agreed upon. Question Answer Comments Discussion of Advance Direct catarina occurred with: Not Discussed due to patient's condition Care Teams Powerplant Operator Relationship Specialty Start Date End Date Zuleima Garcia MD [address] [facility] [place] [address] PCP - General Internal Medicine 08/28/24 documented as of this encounter
--- OUTSIDE RECORDS SUMMARY | 2025-02-13 00:42 | External Medical Summary | Summary of Care ---
Author Name Unknown Organization [facility] Address [address] [place] [address] Phone [phone] Care Team Providers Care Acid Loader Name Role Phone Zuleima Garcia MD Primary Care Provider + Reason for Visit * Reason Onset Date Comments Appointment 01/21/2025 Encounter Details Date Type Department Care Team (Late st Contact Info) Description 01/21/2025 Telephone Hematology/Oncology Treatment, [place] [address] [place] [address] Edin Garcia MD 200 [facility] [place] [address] Appointment Allergies Active Allergy Reactions Criticality Noted [...] mRNA, LNP-s, No Pre serve, 2-Dose Series ([place] [employer]) 11/04/2021,02/14/2021,01/24/2021 Covid-19, Mrna, Lnp-s, Pf, B ivalent, 30 Mcg, IM, 12 yrs and above ([place] [employer]) 08/25/2022 Pneumococcal Conjugate Vacc, 13 Valent (Prevnar) [...] few months back to be seen by die maker stamping for possibility of multiple myeloma but at that time patient and her daughter decided not to pursue any further workup or treatment. Please check with the patient and family if they are agreeable to be seen by die maker stamping. We would certainly recommend she see die maker stamping as there are good treatment options. If [...] Recovery Suite Waiting Unit, H [address] [place] [phone] Nelson Mariee MD [address] [facility] [place] [address] 01/27/2025 9:00 AM EST - 01/27/2025 10:00 AM EST Surgery [facility], Cardiac Recovery Suite Waiting Unit, H [address] [place] [phone] Nelson Mariee MD [address] [place] [facility] [place] [address] TRANSCATHETER 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; PERCUTANEOUS APPROACH, INCLUDING TRANSSEPTAL PUNCTURE, WHEN PERFORMED 01/27/2025 9:00 AM EST Office Visit Cardiology [facility] [place] [address] [place] [address] [facility] Cardiac [facility] [address] [place] [address] 04/01/2025 9:20 AM EDT Office Visit General Internal Medicine [facility] [address] [place] [address] Zuleima Garcia MD [address] [place] [address] 04/01/2025 11:00 AM EDT [facility] [address] [place] [address] Daiana Anne CRNP [address] [place] [address] Scheduled Procedures Name Priority Associated Diagnoses Date/Ti [...] D LEVEL ONCE IN A LIFETIME-USE SMARTSET# [id number] Completed 01/12/2023, 06/03/2021, 08/16/2018 Influenza Vaccine (FLU [...] this encounter Medical Devices Implanted Type Area Benzene Still Utility Operator Device Identifier Shelf Expiration Date Model / Serial / Lot Cath Thermodilution 6fr - [id number] Implanted:Qty: 1 on 01/18/2025 by Melinda Jin MD at [facility] [employer] [id number] 06/24/2026 [id number] / / [id number] documented as of this encounter Advance Directives * Full Code (Latest Code Status on File) Date Activated Date Inactivated Comments 01/18/2025 12:48 PM 01/21/2025 11:46 PM This order reflects the patients wishes and were consensually agreed upon. Question Answer Comments Discussion of Advance Direct catarina occurred with: Not Discussed due to patient's condition Care Teams Acid Loader Relationship Specialty Start Date End Date Zuleima Garcia MD [address] [place] [address] PCP - General Internal Medicine 08/28/24 documented as of this encounter
--- OUTSIDE RECORDS SUMMARY | 2025-02-13 00:43 | External Medical Summary ---
Author Name Unknown Address Unknown Organization [id number]:LABORATORY [facility] [place] - [address] [place] [address] Laboratory Report Ordering Provider Test Date Status SUYAPA OSPINA 01/20/2025 05:19:00 Final Observation Date Value Abnormality Reference (Units ) Status Iron 01/20/2025 05:19:00 47 33-151 (ug /dL) Final Iron-binding capacity 01/20/2025 05:19:00 274 250-425 (ug/dL) Final Transferrin Sat % 01/20/2025 05:19:00 17 15 -55 (%) Final Performing Location LABORATORY [facility] [place] - [address] [place] [address]
--- OUTSIDE RECORDS SUMMARY | 2025-02-13 00:43 | External Medical Summary ---
Author Name Unknown Address Unknown Organization [id number]:[facility] [place] [address] [place] [address] Laboratory Report Ordering Provider Test Date Status ROBERT MEDEL 01/20/2025 05:19:00 Final Warfarin Therapy
INR: 2 .0-3.0 conventional anticoagulation
INR: 2.5- 3.5 high intensity anticoagulation Observation Date Value Abnormality Reference (Units ) Status PT 01/20/2025 05:19:00 15.9 Above high normal 11 .6-15.2 (seconds) Final INR 01/20/2025 05:19:00 1.3 Above high normal 0. 8-1.2 Final Performing Location [facility] [facility] [place] [address] [place] [address]
--- OUTSIDE RECORDS SUMMARY | 2025-02-13 00:43 | External Medical Summary ---
Author Name Unknown Address Unknown Organization [id number]:LABORATORY [facility] - [address] [place] [address] Laboratory Report Ordering Provider Test Date Status ANAISUYAPA 01/20/2025 05:19:00 Final Observation Date Value Abnormality Reference (Units ) Status IgG 01/20/2025 05:19:00 2530 Above high normal 70 0-1600 (mg/dL) Final IgA 01/20/2025 05:19:00 30 Below low normal 70- 400 (mg/dL) Final IgM 01/20/2025 05:19:00 34 Below low normal 40- 230 (mg/dL) Final Performing Location LABORATORY [facility] - [address] [place] [address]
--- OUTSIDE RECORDS SUMMARY | 2025-02-13 00:43 | External Medical Summary ---
Author Name Unknown Address Unknown Organization [id number]:[facility] [place] [facility] [address] [facility] [address] Laboratory Report Ordering Provider Test Date Status ROBERT MEDEL HELENA 01/21/2025 05:03:00 Final Observation Date Value Abnormality Reference (Units ) Status WBC, Total 01/21/2025 05:03:00 4.35 4.00-10.80 (K/uL) Final RBC 01/21/2025 05:03:00 3.53 3.85-5.15 (M/uL) Final Hemoglobin 01/21/2025 05:03:00 10.4 Below low normal 12.0-15.3 (g/dL) Final HCT 01/21/2025 05:03:00 33.8 Below low normal 36.0-45.2 (%) Final MCV 01/21/2025 05:03:00 95.8 81.5-97.5 (fL) Final MCH 01/21/2025 05:03:00 29.5 27.0-34.0 (pg) Final MCHC 01/21/2025 05:03:00 30.8 32.0-36.0 (g/dL) Final RDW 01/21/2025 05:03:00 14.4 11.5-15.5 (%) Final Platelets 01/21/2025 05:03:00 135 Below low normal 140-400 (K/uL) Final MPV 01/21/2025 05:03:00 10.3 6.6-11.1 (fL) Final Nucleated erythrocytes/100 leukocytes [Ratio] in Blood by Automated count 01/21/2025 05:03:00 0 <=0 (/100 WBCs) Final Performing Location [facility] [place] [address] [place] [address]
--- OUTSIDE RECORDS SUMMARY | 2025-02-13 00:43 | External Medical Summary ---
Author Name Unknown Address Unknown Organization [id number]:LABORATORY [facility] [place] - [address] [facility] [place] [address] Laboratory Report Ordering Provider Test Date Status SUYAPA OSPINA 01/20/2025 05:19:00 Final Observation Date Value Abnormality Reference (Units ) Status Folic Acid 01/20/2025 05:19:00 >20.0 >4.5 (ng/ mL) Final Performing Location LABORATORY [facility] - [address] [place] [address]
--- OUTSIDE RECORDS SUMMARY | 2025-02-13 00:43 | External Medical Summary ---
Author Name Unknown Address Unknown Organization [id number]:LABORATORY [facility] [place] - [address] [place] [address] Laboratory Report Ordering Provider Test Date Status ROBERT MEDEL 01/21/2025 05:03:00 Final Observation Date Value Abnormality Reference (Units ) Status Magnesium 01/21/2025 05:03:00 1.9 1.5-2.6 (m g/dL) Final Performing Location [facility] - [address] [place] [address]
--- OUTSIDE RECORDS SUMMARY | 2025-02-13 00:43 | External Medical Summary ---
Author Name Unknown Address Unknown Organization [id number]:LAB[facility]ATORY [facility] [place] - [address] [facility] [address] Laboratory Report Ordering Provider Test Date Status ROBERT MEDEL 01/20/2025 05:19:00 Final Observation Date Value Abnormality Reference (Units ) Status SYNC LEUKOCYTES IN BLOOD BY AUTOMATED COUNT 01/20/2025 05:19:00 3.52 Below low normal 4.00-10.80 (K/uL) Final Segs 01/20/2025 05:19:00 46.3 40.0-75.0 (%) Final Lymphs % 01/20/2025 05:19:00 35.5 18.0-42.0 (%) Final Monos 01/20/2025 05:19:00 13.9 Above high normal 1.0-11.0 (%) Final Eosinophils 01/20/2025 05:19:00 3.4 0.0-6.0 (%) Final Basos 01/20/2025 05:19:00 0.6 0.0-2.0 (%) Final Immature Granulocyte, Percent 01/20/2025 05:19:00 0.3 0.0-2.0 (%) Final Absolute Segs 01/20/2025 05:19:00 1.63 Below low normal 1.80-7.70 (K/uL) Final Lymphs, absolute 01/20/2025 05:19:00 1.25 1.00-4.80 (K/ul) Final Monos, Abs 01/20/2025 05:19:00 0.49 0.00-1.10 (K/uL) Final Eos, Abs 01/20/2025 05:19:00 0.12 0.00-0.70 (K/uL) Final Basos, Abs 01/20/2025 05:19:00 0.02 0.00-0.20 (K/uL) Final Immature Granulocytes, Number 01/20/2025 05:19:00 0.01 0.00-0.20 (K/uL) Final Performing Location LABORATORY [facility] [place] - [facility] [address] [facility] [address]
--- OUTSIDE RECORDS SUMMARY | 2025-02-13 00:43 | External Medical Summary ---
Author Name Unknown Address Unknown Organization K01:[facility] [place] [address] [facility] [address] Laboratory Report Ordering Provider Test Date Status ROBERT MEDEL HELENA 01/20/2025 05:19:00 Final Observation Date Value Abnormality Reference (Units ) Status BUN 01/20/2025 05:19:00 9 6-20 (mg/dL) Final Creatinine 01/20/2025 05:19:00 0.6 0.5-1.0 (mg/dL) Final Glomerular filtration rate/1.73 sq M.predicted [Volume Rate/Area] in Serum, Plasma or Blood by Creatinine-based formula (CKD-EPI) 01/20/2025 05:19:00 >90 >=60 (mL/min) Final eGFR is calculated based on the CKD-EPI 2020 equation. Sodium 01/20/2025 05:19:00 135 135-146 (m mol/L) Final Potassium 01/20/2025 05:19:00 3.7 3.5-5.1 (m mol/L) Final Cl 01/20/2025 05:19:00 100 98-107 (mm ol/L) Final CO2 01/20/2025 05:19:00 25 22-32 (mmo l/L) Final Anion gap 01/20/2025 05:19:00 10 7-15 (mmol /L) Final Glucose 01/20/2025 05:19:00 89 70-120 (mg /dL) Final Calcium 01/20/2025 05:19:00 9.5 8.4-10.2 ( mg/dL) Final Performing Location [facility] [place] - [address] [place] [address]
--- OUTSIDE RECORDS SUMMARY | 2025-02-13 00:43 | External Medical Summary ---
Author Name Unknown Address Unknown Organization K01:LABORATORY [facility] - [address] [place] [address] Laboratory Report Ordering Provider Test Date Status SUYAPA OSPINA 01/20/2025 09:59:00 Final Observation Date Value Abnormality Reference (Units ) Status LDH 01/20/2025 09:59:00 135 <=250 (U/L ) Final Performing Location LAB[facility]ORY [facility] - [address] [place] [address]
--- OUTSIDE RECORDS SUMMARY | 2025-02-13 00:43 | External Medical Summary ---
Author Name Unknown Address Unknown Organization K01:[facility] [place] [address] [facility] [address] Laboratory Report Ordering Provider Test Date Status ROBERT MEDEL HELENA 01/20/2025 05:19:00 Final Observation Date Value Abnormality Reference (Units ) Status WBC, Total 01/20/2025 05:19:00 3.52 Below low normal 4.00-10.80 (K/uL) Final RBC 01/20/2025 05:19:00 3.24 3.85-5.15 (M/uL) Final Hemoglobin 01/20/2025 05:19:00 9.9 Below low normal 12.0-15.3 (g/dL) Final HCT 01/20/2025 05:19:00 31.2 Below low normal 36.0-45.2 (%) Final MCV 01/20/2025 05:19:00 96.3 81.5-97.5 (fL) Final MCH 01/20/2025 05:19:00 30.6 27.0-34.0 (pg) Final MCHC 01/20/2025 05:19:00 31.7 32.0-36.0 (g/dL) Final RDW 01/20/2025 05:19:00 14.5 11.5-15.5 (%) Final Platelets 01/20/2025 05:19:00 132 Below low normal 140-400 (K/uL) Final MPV 01/20/2025 05:19:00 10.7 6.6-11.1 (fL) Final Nucleated erythrocytes/100 leukocytes [Ratio] in Blood by Automated count 01/20/2025 05:19:00 0 <=0 (/100 WBCs) Final Performing Location [facility] [place] [address] [place] [address]
--- OUTSIDE RECORDS SUMMARY | 2025-02-13 00:43 | External Medical Summary ---
Author Name Unknown Address Unknown Organization K01:LABORATORY [facility] [place] - [address] [place] [address] Laboratory Report Ordering Provider Test Date Status ROBERT MEDEL 01/20/2025 05:19:00 Final Observation Date Value Abnormality Reference (Units ) Status Phosphate 01/20/2025 05:19:00 4.2 2.5-4.8 (m g/dL) Final Performing Location [facility] - [address] [place] [address]
--- OUTSIDE RECORDS SUMMARY | 2025-02-13 00:43 | External Medical Summary ---
Author Name Unknown Address Unknown Organization K01:[facility]ORY [facility] [place] [address] [place] [address] Laboratory Report Ordering Provider Test Date Status SUYAPA OSPINA 01/20/2025 05:19:00 Final Observation Date Value Abnormality Reference (Units ) Status CLINICIAN SLIDE READY? 01/20/2025 05:19:00 Yes Final CLINICIAN SLIDE REQUEST PICKUP LOCATION 01/20/2025 05:19:00 [facility] Main Laboratory - [place] Final Performing Location [facility] [place] [address] [place] [address]
--- OUTSIDE RECORDS SUMMARY | 2025-02-13 00:43 | External Medical Summary ---
Author Name Unknown Address Unknown Organization K01:[facility] [place] [address] [place] [address] Laboratory Report Ordering Provider Test Date Status SUYAPA OSPINA 01/20/2025 05:19:00 Final Observation Date Value Abnormality Reference (Units ) Status Vitamin B12 01/20/2025 05:19:00 823 614-3153 (pg/mL) Final Performing Location LABORATORY C - [address] [place] [address]
--- OUTSIDE RECORDS SUMMARY | 2025-02-13 00:43 | External Medical Summary | Summary of Care ---
Author Name Unknown Organization [facility] Address [address] [place] [address] Phone [phone] Care Team Providers Care Pad Hand Name Role Phone Zuleima Garcia MD Primary Care Provider + Reason for Visit * Reason Onset Date Comments Imaging Records Request 01/19/2025 Encounter Details Date Type Department Care Team (Late st Contact Info) Description 01/19/2025 Telephone Radiology Film File [address] [place] [address] Support, Imaging Radiology [address] [place] [address] Imaging Records Request Allergies Active Allergy Reactions Criticality Noted Date Comments Ezetimibe Low 11/28/2023 General malaise or feeling unwell Famotidine Diarrhea Low 09/13/2024 Prednisone Muscle pain Medium 07/15/2024 Pantoprazole Hives Medium 02/07/2022 GI upset Rosuvastatin Medium 11/28/2023 Muscle aches/pains, fatigue Statins Medium 11/01/2022 myalgia Torsemide Low 08/12/2024 GI symptoms documented as of this encounter (statuses as of 01/19/2025) Medications Ferrous Sulfate 325 (65 Fe) MG [...] as of this encounter (statuses as of 01/19/2025) Active Problems Problem Noted Date Diagnosed Date Congestive heart disease 01/18/2025 Dyslipidemia 01/18/2025 Paroxysmal [...] as of this encounter (statuses as of 01/19/2025) Resolved Problems Problem Noted Date Diagnosed Date Resolved Date HTN, goal below 130/80 08/12/201808/16 documented as of this encounter (statuses as of 01/19/2025) Immunizations Name Administration Dates Next Due COVID-19 mRNA, LNP-s, No Pre serve, 2-Dose Series ([employer]) 11/04/2021,02/14/2021,01/24/2021 Covid-19, Mrna, Lnp-s, Pf, B ivalent, 30 Mcg, IM, 12 yrs and above ([employer]) 08/25/2022 Pneumococcal Conjugate Vacc, 13 Valent (Prevnar) [...] encounter Miscellaneous Notes * Telephone Encounter - Denise Kaufman OSA - 01/19/2025 2:14 PM EST Cardiology requesting patient's 01/19/25 CTA Tavr images for surgery/appointment planning. Images created on disc and prepared at [facility] facility for pickup. documented in this encounter Plan of Treatment Upcoming Encounters Date Type Department Care Team (Late st Contact Info) Description 04/01/2025 9:20 AM EDT Office Visit General Internal Medicine [facility] [place] [address] [facility] [address] Zuleima Garcia MD [address] [place] [address] 04/01/2025 11:00 AM EDT Office Visit Cardiology, [facility] [address] [place] [address] Daiana Anne CRNP [address] [place] [address] Scheduled Procedures Name Priority Associated Diagnoses Date/Ti [...] exists Albumin/Creatinine Ratio 11/03/2025 11/03/2022, 05/26 GFR 01/19/2026 01/19/2025, 12/27, 01/05/2025, Additional history exists DXA Scan 09/17/2026 09/17/2024 DTap/Tdap Vaccines (2 - Td or Tdap) 05/10/2028 05/10/2018 Lipid Panel 01/19/2030 01/19/2025, 02/23, 08/24/2023, Additional history exists Colonoscopy 08/07/2031 08/07/2021, 08/07/2021 Colorectal Cancer Screening 08/07/2031 Pneumococcal Vaccine: 50+ Years Completed 05/10/2018, 05/10/2018 Zoster Vaccines Completed 06/09/2018, 05/10/2018 VITAMIN D LEVEL ONCE IN A LIFETIME-USE SMARTSET# [id number] Completed 01/12/2023, 06/03/2021, 08/16/2018 Influenza Vaccine (FLU [...] this encounter Medical Devices Implanted Type Area Physicist Solid State Device Identifier Shelf Expiration Date Model / Serial / Lot Cath Thermodilution 6fr - [id number] Implanted:Qty: 1 on 01/18/2025 by Melinda Jin MD at [facility] [employer] DARYL [id number] 06/24/2026 [id number] / / [id number] documented as of this encounter Advance Directives * Full Code (Latest Code Status on File) Date Activated Date Inactivated Comments 01/18/2025 12:48 PM This order re flects the patients wishes and were consensually agreed upon. Question Answer Comments Discussion of Advance Direct catarina occurred with: Not Discussed due to patient's condition Care Teams Pad Hand Relationship Specialty Start Date End Date Zuleima Garcia MD [address] [place] [address] PCP - General Internal Medicine 08/28/24 documented as of this encounter
--- OUTSIDE RECORDS SUMMARY | 2025-02-13 00:43 | External Medical Summary ---
Author Name Unknown Address Unknown Organization K01:[facility] [place] [address] [facility] [address] Laboratory Report Ordering Provider Test Date Status SUYAPA OSPINA 01/20/2025 05:19:00 Final Observation Date Value Abnormality Reference (Units ) Status Ferritin 01/20/2025 05:19:00 105 13-150 (ng /mL) Final Postmenopausal women have hi gher ferritin levels than pre-menopausal women. The above reference interval is based on pre-menopausal women. Performing Location [facility] - [address] [facility] [address]
--- OUTSIDE RECORDS SUMMARY | 2025-02-13 00:43 | External Medical Summary ---
Author Name Unknown Address Unknown Organization K01:[facility] [place] [address] [place] [address] Laboratory Report Ordering Provider Test Date Status ROBERT MEDEL 01/21/2025 05:03:00 Final Observation Date Value Abnormality Reference (Units ) Status Phosphate 01/21/2025 05:03:00 4.2 2.5-4.8 (m g/dL) Final Performing Location LAB[facility] - [address] [place] [address]
--- OUTSIDE RECORDS SUMMARY | 2025-02-13 00:43 | External Medical Summary ---
Author Name Unknown Address Unknown Organization K01:LABORATORY [facility] [place] - [address] [place] [address] Laboratory Report Ordering Provider Test Date Status SUYAPA OSPINA 01/21/2025 11:56:50 Final Normal: <150 mg/24 hours<br/ >High: 150-500 mg/24 hours
Very High: >500 mg/24 hours
Nephrotic: >3000 mg/24 hours Observation Date Value Abnormality Reference (Units ) Status Protein, 24-hr Urine 01/21/2025 11:56:50 <6 (mg/dL) Final Urine Volume 01/21/2025 11:56:50 3000 (mL) Final PROTEIN, 24 HOUR URINE HIDE 01/21/2025 11:56:50 Final Uninterpretable due to very low protein or high urine volume Performing Location LABORATORY [facility] [place] - [address] [place] [address]
--- OUTSIDE RECORDS SUMMARY | 2025-02-13 00:43 | External Medical Summary ---
Author Name Unknown Address Unknown Organization : Laboratory Report Ordering Provider Test Date Status ROBERT MEDEL 01/20/2025 09:59:00 Final Observation Date Value Abnormality Reference (Units ) Status Beta-2 Microglobulin 01/20/2025 09:59:00 2.95 Above high normal <=2.51 (mg/L) Final Test Performed at:
[facility]
[address]
[place] [address]
Reed Ardon M.D., Ph.D.,Director of Laboratories Performing Location
--- OUTSIDE RECORDS SUMMARY | 2025-02-13 00:43 | External Medical Summary ---
Author Name Unknown Address Unknown Organization K01:[place] [facility] [place] [facility] [place] [address] Laboratory Report Ordering Provider Test Date Status SUYAPA OSPINA 01/20/2025 09:59:00 Final Observation Date Value Abnormality Reference (Units ) Status [place] light chains, Free, Serum 01/20/2025 09:59:00 387.54 Above high normal 3.30-19.40 (mg/L) Final Lambda light chains, free, Serum 01/20/2025 09:59:00 8.77 5.71-26.30 (mg/L) Final KAPPA LAMBDA FLC RATIO 01/20/2025 09:59:00 44.19 Above high normal 0.26-1.65 Final Performing Location [place] [facility] [place] [facility] [place] [address]
--- OUTSIDE RECORDS SUMMARY | 2025-02-13 00:43 | External Medical Summary ---
Author Name Unknown Address Unknown Organization K01:[place] [facility] [place] [facility] [place] [place] [address] Laboratory Report Ordering Provider Test Date Status SUYAPA OSPINA 01/20/2025 05:19:00 Final Observation Date Value Abnormality Reference (Units ) Status Retic, % (auto) 01/20/2025 05:19:00 1.55 0.80-1.90 (%) Final Reticulocytes, Absolute 01/20/2025 05:19:00 50.8 31.3-100.1 (K/uL) Final Reticulocyte fraction, immature 01/20/2025 05:19:00 10.5 2.5-20.6 (%) Final Reticulocyte HGB 01/20/2025 05:19:00 34.6 29.7-37.4 (pg) Final Performing Location LABORATORY [facility] [place] [address] [place] [address]
--- OUTSIDE RECORDS SUMMARY | 2025-02-13 00:43 | External Medical Summary ---
Author Name Unknown Address Unknown Organization K01:[place]ATORY [facility] [place] [facility] [place] [address] Laboratory Report Ordering Provider Test Date Status SUYAPA OSPINA 01/20/2025 05:19:00 Final Observation Date Value Abnormality Reference (Units ) Status Albumin 01/20/2025 05:19:00 3.1 Below low normal 3.8-5.0 (g/dL) Final AST (Aspartate aminotransferase) 01/20/2025 05:19:00 13 10-35 (U/L) Final Alk Phos 01/20/2025 05:19:00 58 35-130 (U/L) Final ALT (Alanine aminotransferase) 01/20/2025 05:19:00 14 10-35 (U/L) Final Bilirubin, Total 01/20/2025 05:19:00 0.4 <=1.2 (mg/dL) Final Bilirubin, Direct 01/20/2025 05:19:00 0.2 0.0-0.3 (mg/dL) Final Protein 01/20/2025 05:19:00 7.5 6.0-8.3 (g/dL) Final Performing Location LABORATORY [facility] [place] - [facility] [address] [place] [address]
--- OUTSIDE RECORDS SUMMARY | 2025-02-13 00:43 | External Medical Summary ---
Author Name Unknown Address Unknown Organization K01:[place] [facility] [place] [address] [facility] [address] Laboratory Report Ordering Provider Test Date Status ROBERT MEDEL 01/21/2025 05:03:00 Final Observation Date Value Abnormality Reference (Units ) Status SYNC LEUKOCYTES IN BLOOD BY AUTOMATED COUNT 01/21/2025 05:03:00 4.35 4.00-10.80 (K/uL) Final Segs 01/21/2025 05:03:00 45.8 40.0-75.0 (%) Final Lymphs % 01/21/2025 05:03:00 37.5 18.0-42.0 (%) Final Monos 01/21/2025 05:03:00 11.7 Above high normal 1.0-11.0 (%) Final Eosinophils 01/21/2025 05:03:00 4.1 0.0-6.0 (%) Final Basos 01/21/2025 05:03:00 0.7 0.0-2.0 (%) Final Immature Granulocyte, Percent 01/21/2025 05:03:00 0.2 0.0-2.0 (%) Final Absolute Segs 01/21/2025 05:03:00 1.99 1.80-7.70 (K/uL) Final Lymphs, absolute 01/21/2025 05:03:00 1.63 1.00-4.80 (K/ul) Final Monos, Abs 01/21/2025 05:03:00 0.51 0.00-1.10 (K/uL) Final Eos, Abs 01/21/2025 05:03:00 0.18 0.00-0.70 (K/uL) Final Basos, Abs 01/21/2025 05:03:00 0.03 0.00-0.20 (K/uL) Final Immature Granulocytes, Number 01/21/2025 05:03:00 0.01 0.00-0.20 (K/uL) Final Performing Location [place] [facility] [place] [facility] [place] [address]
--- OUTSIDE RECORDS SUMMARY | 2025-02-13 00:43 | External Medical Summary ---
Author Name Unknown Address Unknown Organization K01:[place] [facility] [place] [address] [facility] [address] Laboratory Report Ordering Provider Test Date Status ROBERT MEDEL HELENA 01/21/2025 05:03:00 Final Observation Date Value Abnormality Reference (Units ) Status BUN 01/21/2025 05:03:00 9 6-20 (mg/dL) Final Creatinine 01/21/2025 05:03:00 0.6 0.5-1.0 (mg/dL) Final Glomerular filtration rate/1.73 sq M.predicted [Volume Rate/Area] in Serum, Plasma or Blood by Creatinine-based formula (CKD-EPI) 01/21/2025 05:03:00 >90 >=60 (mL/min) Final eGFR is calculated based on the CKD-EPI 2020 equation. Sodium 01/21/2025 05:03:00 133 Below low normal 135 -146 (mmol/L) Final Potassium 01/21/2025 05:03:00 4.3 3.5-5.1 (m mol/L) Final Cl 01/21/2025 05:03:00 98 98-107 (mm ol/L) Final CO2 01/21/2025 05:03:00 25 22-32 (mmo l/L) Final Anion gap 01/21/2025 05:03:00 10 7-15 (mmol /L) Final Glucose 01/21/2025 05:03:00 84 70-120 (mg /dL) Final Calcium 01/21/2025 05:03:00 10.1 8.4-10.2 ( mg/dL) Final Performing Location [place] [facility] [place] [address] [place] [address]
--- OUTSIDE RECORDS SUMMARY | 2025-02-13 00:43 | External Medical Summary ---
Author Name Unknown Address Unknown Organization K01:LAB[place]ORY [facility] [place] [address] [facility] [address] Laboratory Report Ordering Provider Test Date Status KINGS NASH 01/20/2025 05:19:00 Final Anticoagulation may affect t esting. Refer to [facility] Test Catalog for a list of effects. Observation Date Value Abnormality Reference (Units ) Status aPTT panel - Platelet poor plasma 01/20/2025 05:19:00 95 Above high normal 21-38 (seconds) Final Performing Location LABORATORY [facility] [place] - [address] [place] [address]
--- OUTSIDE RECORDS SUMMARY | 2025-02-13 00:43 | External Medical Summary ---
Author Name Unknown Address Unknown Organization K01:[place] [facility] [place] [address] [facility] [place] [address] Laboratory Report Ordering Provider Test Date Status SUYAPA OSPINA 01/20/2025 05:19:00 Final Observation Date Value Abnormality Reference (Units ) Status Haptoglobin 01/20/2025 05:19:00 20 Below low normal 3 0-200 (mg/dL) Final Performing Location [place] [facility] [place] [address] [place] [address]
--- OUTSIDE RECORDS SUMMARY | 2025-02-13 00:43 | External Medical Summary ---
Author Name Unknown Address Unknown Organization K01:LAB[facility]ATORY [facility] [place] - [address] [place] [address] Laboratory Report Ordering Provider Test Date Status ROBERT MEDEL 01/20/2025 05:19:00 Final Observation Date Value Abnormality Reference (Units ) Status Magnesium 01/20/2025 05:19:00 2.1 1.5-2.6 (m g/dL) Final Performing Location LABORATORY [facility] - [address] [place] [address]
--- OUTSIDE RECORDS SUMMARY | 2025-02-13 00:43 | External Medical Summary | Summary of Care ---
Author Name Unknown Organization [facility] Address [address] [place] [address] Phone [phone] Care Team Providers Care Product Development Name Role Phone Zuleima Garcia MD Primary Care Provider + Reason for Visit * Reason Comments Congestive Heart Failure Encounter Details Date Type Department Care Team (Late st Contact Info) Description 01/19/2025 Documentation Care Coordination and Integration [address] [place] [address] Felisa Ornelas RN [address], [place] [id number] Allergies Active Allergy Reactions Criticality Noted Date [...] Tablets by mouth in the morning. 08/12/20 Suspended Apixaban 5 MG Oral Tablet (Eliquis)Indica [...] mRNA, LNP-s, No Pre serve, 2-Dose Series ([employer]) 11/04/2021,02/14/2021,01/24/2021 Covid-19, Mrna, Lnp-s, Pf, B ivalent, 30 Mcg, IM, 12 yrs and above ([employer]) 08/25/2022 Pneumococcal Conjugate Vacc, 13 Valent (Prevnar) [...] Sushila [place] RN documented in this encounter Progress Notes * Felisa Ornelas RN - 01/19/2025 7:53 AM EST CM Hospitalization: [facility] [place] present: CHF CM to f/u in 1-2 days to check on disposition Felisa Ornelas, MSN, public administration teacher [employer] Installer documented in this encounter Plan of Treatment Upcoming Encounters Date Type Department Care Team (Late st Contact Info) Description 01/19/2025 8:30 AM EST Office Visit Cardiothoracic Surg [facility] [address] [place] [facility] [place] [address] Mandeep Stone MD [address] [facility] [place] [address] 04/01/2025 9:20 AM EDT Office Visit General Internal Medicine [facility] [address] [facility] [address] Zuleima Garcia MD [address] [facility] [place] [address] 04/01/2025 11:00 AM EDT Office Visit Cardiology, [facility] [address] [place] [address] Daiana Anen CRNP [address] [place] [address] Scheduled Procedures Name Priority Associated Diagnoses Date/Ti [...] D LEVEL ONCE IN A LIFETIME-USE SMARTSET# [id number] Completed 01/12/2023, 06/03/2021, 08/16/2018 Influenza Vaccine (FLU [...] this encounter Medical Devices Implanted Type Area Lime Puller Device Identifier Shelf Expiration Date Model / Serial / Lot Cath Thermodilution 6fr - [id number] Implanted:Qty: 1 on 01/18/2025 by Melinda Jin MD at [facility] [place] [employer] [id number] 06/24/2026 [id number] / / [id number] documented as of this encounter Advance Directives * Full Code (Latest Code Status on File) Date Activated Date Inactivated Comments 01/18/2025 12:48 PM This order re flects the patients wishes and were consensually agreed upon. Question Answer Comments Discussion of Advance Direct catarina occurred with: Not Discussed due to patient's condition Care Teams Product Development Relationship Specialty Start Date End Date Zuleima Garcia MD [address] [place] [address] PCP - General Internal Medicine 08/28/24 documented as of this encounter
--- OUTSIDE RECORDS SUMMARY | 2025-02-13 00:44 | External Medical Summary ---
Author Name Unknown Address Unknown Organization K01:LAB[facility]ATORY [facility] [place] - [address] [facility] [address] Laboratory Report Ordering Provider Test Date Status ROBERT MEDEL 01/19/2025 04:57:00 Final Observation Date Value Abnormality Reference (Units ) Status SYNC LEUKOCYTES IN BLOOD BY AUTOMATED COUNT 01/19/2025 04:57:00 3.62 Below low normal 4.00-10.80 (K/uL) Final Segs 01/19/2025 04:57:00 48.6 40.0-75.0 (%) Final Lymphs % 01/19/2025 04:57:00 34.8 18.0-42.0 (%) Final Monos 01/19/2025 04:57:00 13.5 Above high normal 1.0-11.0 (%) Final Eosinophils 01/19/2025 04:57:00 2.2 0.0-6.0 (%) Final Basos 01/19/2025 04:57:00 0.6 0.0-2.0 (%) Final Immature Granulocyte, Percent 01/19/2025 04:57:00 0.3 0.0-2.0 (%) Final Absolute Segs 01/19/2025 04:57:00 1.76 Below low normal 1.80-7.70 (K/uL) Final Lymphs, absolute 01/19/2025 04:57:00 1.26 1.00-4.80 (K/ul) Final Monos, Abs 01/19/2025 04:57:00 0.49 0.00-1.10 (K/uL) Final Eos, Abs 01/19/2025 04:57:00 0.08 0.00-0.70 (K/uL) Final Basos, Abs 01/19/2025 04:57:00 0.02 0.00-0.20 (K/uL) Final Immature Granulocytes, Number 01/19/2025 04:57:00 0.01 0.00-0.20 (K/uL) Final Performing Location LABORATORY [facility] [place] - [facility] [address] [facility] [address]
--- OUTSIDE RECORDS SUMMARY | 2025-02-13 00:44 | External Medical Summary ---
Author Name Unknown Address Unknown Organization K01:[facility]ATORY [facility] [place] [address] [facility] [address] Laboratory Report Ordering Provider Test Date Status KAREN PINEDA 01/18/2025 10:18:48 Final Observation Date Value Abnormality Reference (Units ) Status WBC, Total 01/18/2025 10:18:48 4.43 4.00-10.80 (K/uL) Final RBC 01/18/2025 10:18:48 3.54 3.85-5.15 (M/uL) Final Hemoglobin 01/18/2025 10:18:48 10.8 Below low normal 12.0-15.3 (g/dL) Final HCT 01/18/2025 10:18:48 34.4 Below low normal 36.0-45.2 (%) Final MCV 01/18/2025 10:18:48 97.2 81.5-97.5 (fL) Final MCH 01/18/2025 10:18:48 30.5 27.0-34.0 (pg) Final MCHC 01/18/2025 10:18:48 31.4 32.0-36.0 (g/dL) Final RDW 01/18/2025 10:18:48 14.6 11.5-15.5 (%) Final Platelets 01/18/2025 10:18:48 143 140-400 (K/uL) Final MPV 01/18/2025 10:18:48 10.2 6.6-11.1 (fL) Final Nucleated erythrocytes/100 leukocytes [Ratio] in Blood by Automated count 01/18/2025 10:18:48 0 <=0 (/100 WBCs) Final Performing Location LAB[facility]ATORY [facility] [place] [address] [facility] [address]
--- OUTSIDE RECORDS SUMMARY | 2025-02-13 00:44 | External Medical Summary ---
Author Name Unknown Address Unknown Organization K01:[place] [facility] [place] [facility] [address] [facility] [address] Laboratory Report Ordering Provider Test Date Status ROBERT MEDEL HELENA 01/18/2025 16:57:00 Final Observation Date Value Abnormality Reference (Units ) Status WBC, Total 01/18/2025 16:57:00 3.66 Below low normal 4.00-10.80 (K/uL) Final RBC 01/18/2025 16:57:00 3.32 3.85-5.15 (M/uL) Final Hemoglobin 01/18/2025 16:57:00 10.4 Below low normal 12.0-15.3 (g/dL) Final HCT 01/18/2025 16:57:00 31.9 Below low normal 36.0-45.2 (%) Final MCV 01/18/2025 16:57:00 96.1 81.5-97.5 (fL) Final MCH 01/18/2025 16:57:00 31.3 27.0-34.0 (pg) Final MCHC 01/18/2025 16:57:00 32.6 32.0-36.0 (g/dL) Final RDW 01/18/2025 16:57:00 14.6 11.5-15.5 (%) Final Platelets 01/18/2025 16:57:00 140 140-400 (K/uL) Final MPV 01/18/2025 16:57:00 10.3 6.6-11.1 (fL) Final Nucleated erythrocytes/100 leukocytes [Ratio] in Blood by Automated count 01/18/2025 16:57:00 0 <=0 (/100 WBCs) Final Performing Location [place] [facility] [place] [address] [place] [address]
--- OUTSIDE RECORDS SUMMARY | 2025-02-13 00:44 | External Medical Summary | Summary of Care ---
Author Name Unknown Organization [facility] Address [address] [place] [address] Phone [phone] Care Team Providers Care [employer] Name Role Phone Zuleima Garcia MD Primary Care Provider + Reason for Visit * Reason Comments Knee Pain Pt presents for R kn ee pain/swelling Encounter Details Date Type Department Care Team (Latest Contact Info) Description 01/07/2025 2:00 PM EST Office Visit Orthopaedics [facility] [address] [place] [phone] Chris Mack PA-C [address] [place] [phone] Primary osteoarthritis of one knee, right*; Chronic pain of right knee Allergies Active Allergy Reactions Criticality Noted Date Comments Ezetimibe 11/28/2023 General malaise or feeling unwell Famotidine Diarrhea High 09/13/2024 Prednisone Muscle pain High 07/15/2024 Pantoprazole Hives 02/07/2022 GI upset Rosuvastatin 11/28/2023 Muscle aches/pains, fatigue Statins 11/01/2022 myalgia Torsemide 08/12/2024 GI symptoms documented as of this encounter (statuses as of 01/07/2025) Medications Ferrous Sulfate 325 (65 Fe) MG [...] the morning. 90 Tablet 3 4 Active Hospital, Clinic, or Other Facility Administered Medication Ordered Dose Route Frequency Start Date End Date Status lidocaine 1% 1 mL - triamcinolone acetonide 40 mg/mL 1 mL inj 2 mLIndications:Primary osteoarthritis of one knee, right 2 mL IJ ONCE 01/07/2025 01/07/2025 Ended documented as of this encounter (statuses as of 01/07/2025) Active Problems Problem Noted Date Diagnosed Date Lytic lesion of bone on x-ray 07/23/2024 Senile osteoporosis 07/23/2024 Pulmonary edema cardiac cause 07/23/2024 Hyperlipidemia LDL goal <70 08/19/2023 H/O mitral valve repair 12/08/2019 Hx of tricuspid valve repair 12/08/2019 Paroxysmal A-fib 08/15/2019 Hypertension goal BP (blood pressure) < 130/80 documented as of this encounter (statuses as of 01/07/2025) Resolved Problems Problem Noted Date Diagnosed Date Resolved Date HTN, goal below 130/80 08/12/201808/16 documented as of this encounter (statuses as of 01/07/2025) Immunizations Name Administration Dates Next Due COVID-19 mRNA, LNP-s, No Pre serve, 2-Dose Series ([employer]) 11/04/2021,02/14/2021,01/24/2021 Covid-19, Mrna, Lnp-s, Pf, B ivalent, 30 Mcg, IM, 12 yrs and above ([employer]) 08/25/2022 Pneumococcal Conjugate Vacc, 13 Valent (Prevnar) [...] AM EDT documented as of this encounter Progress Notes * Chris Mack PA-C - 01/07/2025 2:25 PM ESTAssociated Order(s): LG Joint Inj/Arthro: R knee Post-Procedure Diagnose(s): Primary osteoarthritis of one knee, right Nayeli Roman is a 74 year old female. Chief Complaint Patient presents with Knee Pain Pt presents for R knee pain/swelling HPI: Established patient referred regarding right knee pain that has swelling. Previously treated successfully for left knee pain secondary to osteoarthritis with an injection in 2021. Denies any injury or fall. Symptoms exacerbated with weight-bearing activity and intermittently rest. The patient denies any fevers or chills. Denies any calf pain. She has been using thermal modalities with ice and heat as well as [id number]-[id number] topical gels and creams with little relief. Denies mechanical symptoms or instability. No swelling or redness. No calf pain. Will need x-rays updated today in the right knee. Here with family. Knee Pain PMH: Patient Active Problem List Diagnosis Hypertension goal BP (blood pressure) < 130/80 Paroxysmal A-fib (HCC) H/O mitral valve repair Hx of tricuspid valve repair Hyperlipidemia LDL goal <70 Lytic lesion of bone on x-ray Senile osteoporosis Pulmonary edema cardiac cause (HCC) Current Outpatient Medications Medication Sig Dispense Refill Ferrous Sulfate 325 (65 Fe) MG Oral Tablet Delayed Release Take 1 Tablet by mouth in the morning. In the morning.. Magnesium 100 MG Oral Tablet Take 1 Tablet by mouth every evening. Advanced Probiotic Oral Capsule Take 1 Tablet by mouth in the morning. Vitamin B-12 500 MCG Oral Tablet (vitamin B-12) Take 1 Tablet by mouth in the morning. Caltrate 600+D Plus Minerals 600-800 MG-UNIT Oral Tablet Chewable Take 1 Tablet by mouth every morning. amLODIPine Besylate 5 MG Oral Tablet (Norvasc) Take 0.5 Tablets by mouth in the morning. Apixaban 5 MG Oral Tablet (Eliquis) Take 1 Tablet by mouth in the morning and 1 Tablet before bedtime. 180 Tablet 3 Metoprolol Succinate ER 50 MG Oral Tablet Extended Release 24 Hour (toPROL XL) Take 1 Tablet by mouth in the morning and 1 Tablet before bedtime. 180 Tablet 3 DIURETIC TITRATION PLAN If no improvement on day 3, contact heart failure managing provider. 1 Each0 Furosemide 20 MG Oral Tablet (Lasix) Two tablets by mouth daily with an extra dose as needed for weight gain or worsening leg swelling 210 Tablet 3 Digoxin 125 MCG Oral Tablet (Lanoxin) Take 1 Tablet by mouth in the morning. 90 Tablet 3 No current facility-administered medications for this visit. Past Medical History: Diagnosis Date Hyperlipidemia LDL goal <70 Paroxysmal A-fib (HCC) Past Surgical History: Procedure Laterality Date COLONOSCOPY W/ BIOPSY (RECTUM) 2014 negative COLONOSCOPY, DIAGNOSTIC (RECTUM) 08/07/2021 normal, repeat 5 yrs / COLONOSCOPY FLEXIBLE PROXIMAL DIAGNOSTIC performed by Binh Calzada MD at [facility] EGD, FLEXIBLE, DIAGNOSTIC 08/07/2021 inflammatory cells on bx / ESOPHAGOGASTRODUODENOSCOPY (EGD), FLEXIBLE, TRANSORAL, DIAGNOSTIC performed by Binh Calzada MD at [facility]COPY [facility] EGD, FLEXIBLE, DIAGNOSTIC 08/11/2021 erosive gastropathy, duodenal ulcer / INPT [facility] REMOVE CATARACT, INSERT LENS PROSTH REPAIR TRICUSPID VALVE 11/09/2017 [facility] REPAIR TRICUSPID VALVE 11/09/2017 [facility] Review of patient's allergies indicates: Allergen Reactions Famotidine Diarrhea Prednisone Muscle pain Ezetimibe General malaise or feeling unwell Protonix [Pantoprazole] Hives GI upset Rosuvastatin Muscle aches/pains, fatigue Statins myalgia Torsemide GI symptoms Family History Problem Relation Name Age of Onset Stroke Mother 52 Heart attack Father 63 Heart attack Sister Family Status Relation Status Mo Fa Sis Bro Alive Mariah Alive Social History Socioeconomic History Marital status: Spouse name: Not on file Number of children: Not on file Years of education: Not on file Highest education level: Not on file Occupational History Not on file Tobacco Use Smoking status: Never Smokeless tobacco: Never Vaping Use Vaping status: Never Used Substance and Sexual Activity Alcohol use: No Drug use: No Sexual activity: Not Currently Other Topics Concern Not on file Social History Narrative Not on file Social Needs Financial Resource Strain: Low Risk (08/05/2024) Financial Resource Strain Do you have any trouble paying for your medications, or do you think you might in the future? (Adult - for ages 18 years and over): No Does your family have trouble paying for medicine? (Household - for ages 0-17 years): Not on file Food Insecurity: No Food Insecurity (08/05/2024) Food Insecurity Worried About Running Out of Food in the Last Year: Never true Ran Out of Food in the Last Year: Never true Do you need food for this week? (Adult - for ages 18 years and over): No Transportation Needs: No Transportation Needs (08/05/2024) Transportation Needs Do you have trouble getting a ride to medical visits or work? (Adult - for ages 18 years and over):Not on file Does your family have a hard time getting a ride to doctors visits? (Household - for ages 0-17 years): Not on file Has lack of transportation kept you from medical appointments, meetings, work, or from getting things needed for daily living? Check all that apply. (Adult - for ages 18 years and over): No Do you (or your family) have trouble finding or paying for a ride (transportation)? (Household - for ages 0-17 years): Not on file Social Connections: Socially Integrated (08/05/2024) Social Connections How often do you feel lonely or isolated from those around you? (Adult - for ages 18 years and over): Never Housing Stability: Low Risk (08/05/2024) Housing Stability Do you currently live in a chcf or have no steady place to sleep at night? (Adult - for ages 18 years and over): No Do you think you are at risk of becoming homeless? (Adult - for ages 18 years and over): Not on file Does your family worry about paying for your home or becoming homeless? (Household - for ages 0-17 years): Not on file Are you homeless or worried that you might be in the future? (Adult - for ages 18 years and over): No Are you (or your family) homeless or worried that you might be in the future? (Household - for ages0-17 years): Not on file Objective There were no vitals taken for this visit. complete review of systems negative General: alert and oriented x3 female, no acute distress, appears currently stated age, pleasant, well nourished, here with her daughter Skin: Right knee does not reveal any erythema, effusion, ecchymosis, abrasion, laceration, skin breakdown otherwise Neurovascular: Right lower extremity is neurovascularly intact with good sensation strength throughout, calf supple nontender, toes were mobile, +5 strength dorsi and plantar flexion of the foot Musculoskeletal: Right knee ROM 0-120, jointline tenderness, advanced crepitation noted in PFJ, femoral condyles are tender as well. Ligamentously stable regarding cruciate and collateral ligaments. Extensor mechanism intact. No obvious cystic change or masses the popliteal fossa. Pes anserine bursa and patellar tendon nontender. Hip and ankle atraumatic X-rays of the right knee four views reveals tricompartmental osteoarthritis with advanced osteophytosis and sclerotic bone change. No acute findings such as fracture dislocation or subluxation. Unable to identify any type of obvious cystic changes or masses in the bone. Official radiology report tofollow accordingly and we listed in the patient's chart under imaging. Personal interpretation and documentation regarding today's plain film radiographs performed by myself. ASSESSMENT/PLAN: Chronic pain of right knee (Primary) - XR KNEE 4 OR MORE VIEWS Impression: Right knee osteoarthritis Plan: Today 's findings were discussed with the patient. They were educated regarding their diagnosis. Multiple treatment options discussed and agreed upon, including continued conservative measures with icing, heat, topical creams and gels, behavior modification, rest we also discussed a 1 time injection for the right knee today. The patient has had a left knee injection several years ago by myself and responded well to that. There was concern of the time with pursuing a corticosteroid injection as the patient has a listed prednisone allergy, appearing more so as adverse reaction causing muscle cramps. We also reached out to general practitioner at that time that her left knee injection was given several years ago and received approval. Ultimately, the patient did not have any type of adverse reaction from her left knee corticosteroid injection and we have agreed to proceed accordinglytoday. Appropriate consents and time-out were performed and completed today and all parties are in agreement to proceed accordingly. The patient has no other questions or concerns. All parties aware t hat if the injection wears off and we would like to pursue a subsequent injection it would be a minimum 3-4 months before doing so. Pleased with today 's care. Call sooner if needed. Patient instructed to call or return to clinic for fever or warmth and redness at injection site for potential infection. Patient also advised as to potential for steroid flare reaction including increased pain and redness at injection site which should be treated with ice and resolve within 24 hours. LG Joint Inj/Arthro: R knee on 01/07/2025 2:36 PM Indications: pain Details: 22 G needle, anterolateral approach Medications: (Triamcinolone lidocaine) Outcome: tolerated well, no immediate complications Procedure, treatment alternatives, risks and benefits explained, specific risks discussed. Consent was given by the patient. Immediately prior to procedure a time out was called to verify the correctpatient, procedure, equipment, business support professional and site/side marked as required. Patient was prepped and draped in the usual sterile fashion. This chart was completed in part utilizing [employer] Speech Voice Recognition Software. Grammatical errors, random word insertions, prounoun errors, and incomplete sentences are an occasional consequence of this system due to software limitations, ambient noise, and hardware issues. Any formal questions or concerns about the content, text, or information contained within the body of this dictation should be directly addressed to the provider for clarification. Chris Mack PA-C documented in this encounter Nursing Notes * Jeff Mi CMA - 01/07/2025 1:56 PM EST Pt presents for R knee pain/swelling Pt states pain 6/10 today in R knee Pt would like to see if he could receive an injection in R knee Pt has tried Ice + heat, OTC cream's - Jeff Jerez CMA documented in this encounter Plan of Treatment Upcoming Encounters Date Type Department Care Team (Latest Contact Info) Description 01/18/2025 10:00 AM EST Hospital Encounter CRS Waiting [facility], Cardiac Recovery Suite Waiting Unit, [address] [place] [address] Melinda Jin MD [facility] [place] [address] 01/18/2025 10:00 AM EST - 01/18/2025 11:00 AM EST Surgery CRS Waiting [facility], Cardiac Recovery Suite Waiting Unit, [address] [place] [address] Melinda Jin MD [facility] [place] [address] CORONARY ANGIOGRAPHY W/RIGHT+LEFT CATH 01/18/2025 10:00 AM EST Office Visit Cardiology [facility] [place] [address] [place] [address] [facility] Cardiac [place] [address], [place] [id number] 01/19/2025 7:00 AM EST Appointment Radiology, [address] [phone] 01/19/2025 8:30 AM EST Office Visit Cardiothoracic Surg [facility], [address] [address] Mandeep Stone MD [facility] [address] 04/01/2025 9:20 AM EDT Office Visit General Internal Medicine [facility] [address] [place] [address] Zuleima Garcia MD [address] [place] [address] 04/01/2025 11:00 AM EDT Office Visit Cardiology, [facility] [address] [place] [address] Daiana Anne CRNP [address] [place] [address] Scheduled Procedures Name Priority Associated Diagnoses Date/Ti me CORONARY ANGIOGRAPHY W/RIGHT+LEFT CATH Severe mitral regurgitation 01/18/2025 10:00 AM EST COLONOSCOPY FLEXIBLE PROXIMAL DIAGNOSTIC Recall [...] exists Albumin/Creatinine Ratio 11/03/2025 11/03/2022, 05/26 GFR 01/05/2026 01/05/2025, 10/27, 11/19/2024, Additional history exists DXA Scan 09/17/2026 09/17/2024 DTap/Tdap Vaccines (2 - Td or Tdap) 05/10/2028 05/10/2018 Lipid Panel 03/04/2029 03/04/2024, 07/28, 11/03/2022, Additional history exists Colonoscopy 08/07/2031 08/07/2021, 08/07/2021 Colorectal Cancer Screening 08/07/2031 Pneumococcal Vaccine: 50+ Years Completed 05/10/2018, 05/10/2018 Zoster Vaccines Completed 06/09/2018, 05/10/2018 VITAMIN D LEVEL ONCE IN A LIFETIME-USE SMARTSET# [id number] Completed 01/12/2023, 06/03/2021, 08/16/2018 Influenza Vaccine (FLU [...] Procedure Name Priority Date/Time Associated Diagnosis Comments NV ARTHROCENTESIS ASPIR&/INJ MAJOR JT/BURSA W/O US Routine 01/07/2025 2:36 PM EST Primary osteoarthritis of one knee, right XR KNEE 4 OR MORE VIEWS Routine 01/07/2025 2:32 PM EST Chronic pain of right knee documented in this encounter Results * NV ARTHROCENTESIS ASPIR&/INJ MAJOR JT/BURSA W/O US (01/07/2025 2:36 PM EST) Narrative Chris Mack PA-C - 01/07/2025 2:36 PM EST Chris Mack PA-C 01/07/2025 2:52 PM LG Joint Inj/Arthro: R knee on 01/07/2025 2:36 PM Indications: pain Details: 22 G needle, anterolateral approach Medications: (Triamcinolone lidocaine) Outcome: tolerated well, no immediate complications Procedure, treatment alternatives, risks and benefits explained, specific risks discussed. Consent was given by the patient. Immediately prior to procedure a time out was called to verify the correct patient, procedure, equipment, business support professional and site/side marked as required. Patient was prepped and draped in the usual sterile fashion. Chris Mack PA-C PROCDOC FORM Final R esult * XR KNEE 4 OR MORE VIEWS (01/07/2025 2:32 PM EST) Anatomical Region Laterality Modality Knee, Lower Extremity Computed R adiography 01/07/2025 2:55 PM EST Impressions 01/07/2025 2:53 PM EST IMPRESSION Degenerative changes Narrative 01/07/2025 2:53 PM EST EXAM XR KNEE 4 OR MORE VIEWS-01/07/2025 2:32 pm HISTORY Pain COMPARISON Left knee three views dated 05/05/2022 TECHNIQUE AP tunnel lateral patellar sunrise views right knee Patellar sunrise view left knee FINDINGS Right knee: There is an element of demineralization. There is tri compartment degenerative change consisting of osteophyte formation and articular joint space narrowing. This is probably most marked involving the medial joint compartment. Allowing for above there is no definitive acute fracture or ossific destructive lesion. Is no significant periosteal reaction or periostitis. Tibial plateaus maintained. Patella appears intact. Osseous alignment otherwise satisfactory. No gross joint effusion. Left knee: On single patellar sunrise view patella appears intact. Procedure Note Don Monahan MD - 01/07/2025 EXAM XR KNEE 4 OR MORE VIEWS-01/07/2025 2:32 pm HISTORY Pain COMPARISON Left knee three views dated 05/05/2022 TECHNIQUE AP tunnel lateral patellar sunrise views right knee Patellar sunrise view left knee FINDINGS Right knee: There is an element of demineralization. There is tri compartmentdegenerative change consisting of osteophyte formation and articular jointspace narrowing. This is probably most marked involving the medial jointcompartment. Allowing for above there is no definitive acute fracture or ossificdestructive lesion. Is no significant periosteal reaction or periostitis.Tibial plateaus maintained. Patella appears intact. Osseous alignment otherwise satisfactory. No gross joint effusion. Left knee: On single patellar sunrise view patella appears intact. IMPRESSION IMPRESSION Degenerative changes Chris Mack PA-Rigoberto RADIOLOGY ([facility]) Final Result documented in this encounter Visit Diagnoses Diagnosis Primary osteoarthritis of one knee, right- Primary Chronic pain of right knee Severe mitral regurgitation Mitral valve disorders documented in this encounter Administered Medications Inactive Administered Medications - up to 3 most recent administrations Medication Order MAR Action Action Date Dose Rate Site lidocaine 1% 1 mL - triamcinolone acetonide 40 mg/mL 1 mL inj 2 mL 2 mL, Injection, ONCE, On Kailey 01/07/25 at 1515, For 1 dose, Lidocaine 1% 1mL Triamcinolone Acetonide 40 mg/mL 1 mL (Final concentration = 20 mg/mL) REFRIGERATE and SHAKE WELLIndications:Primary osteoarthritis of one knee, right Given 01/07/2025 3:15 PM EST 2 mL Knee Right documented in this encounter Care Teams [employer] Relationship Specialty Start Date End Date Zuleima Garcia MD [address] [place] [address] PCP - General Internal Medicine 08/28/24 documented as of this encounter
--- OUTSIDE RECORDS SUMMARY | 2025-02-13 00:44 | External Medical Summary ---
Author Name Unknown Address Unknown Organization [id number]:[facility] [place] [address] [facility] [address] Laboratory Report Ordering Provider Test Date Status ROBERT MEDEL HELENA 01/19/2025 04:57:00 Final Observation Date Value Abnormality Reference (Units ) Status WBC, Total 01/19/2025 04:57:00 3.62 Below low normal 4.00-10.80 (K/uL) Final RBC 01/19/2025 04:57:00 3.17 3.85-5.15 (M/uL) Final Hemoglobin 01/19/2025 04:57:00 9.7 Below low normal 12.0-15.3 (g/dL) Final HCT 01/19/2025 04:57:00 30.7 Below low normal 36.0-45.2 (%) Final MCV 01/19/2025 04:57:00 96.8 81.5-97.5 (fL) Final MCH 01/19/2025 04:57:00 30.6 27.0-34.0 (pg) Final MCHC 01/19/2025 04:57:00 31.6 32.0-36.0 (g/dL) Final RDW 01/19/2025 04:57:00 14.6 11.5-15.5 (%) Final Platelets 01/19/2025 04:57:00 133 Below low normal 140-400 (K/uL) Final MPV 01/19/2025 04:57:00 10.0 6.6-11.1 (fL) Final Nucleated erythrocytes/100 leukocytes [Ratio] in Blood by Automated count 01/19/2025 04:57:00 0 <=0 (/100 WBCs) Final Performing Location [facility] - [address] [place] [address]
--- OUTSIDE RECORDS SUMMARY | 2025-02-13 00:44 | External Medical Summary ---
Author Name Unknown Address Unknown Organization [id number][facility] [address] [place] [address] Laboratory Report Ordering Provider Test Date Status JAJA CHAPMAN 01/05/2025 09:33:00 Final Observation Date Value Abnormality Reference (Units ) Status BUN 01/05/2025 09:33:00 8 6-20 (mg/dL) Final Creatinine 01/05/2025 09:33:00 0.7 0.5-1.0 (mg/dL) Final Glomerular filtration rate/1.73 sq M.predicted [Volume Rate/Area] in Serum, Plasma or Blood by Creatinine-based formula (CKD-EPI) 01/05/2025 09:33:00 >90 >=60 (mL/min) Final eGFR is calculated based on the CKD-EPI 2020 equation. Sodium 01/05/2025 09:33:00 135 135-146 (m mol/L) Final Potassium 01/05/2025 09:33:00 5.0 3.5-5.1 (m mol/L) Final Cl 01/05/2025 09:33:00 98 98-107 (mm ol/L) Final CO2 01/05/2025 09:33:00 26 22-32 (mmo l/L) Final Anion gap 01/05/2025 09:33:00 11 7-15 (mmol /L) Final Glucose 01/05/2025 09:33:00 84 70-120 (mg /dL) Final Calcium 01/05/2025 09:33:00 10.3 Above high normal 8. 4-10.2 (mg/dL) Final Performing Location [facility]ORY [facility] [address] [place] [address]
--- OUTSIDE RECORDS SUMMARY | 2025-02-13 00:44 | External Medical Summary ---
Author Name Unknown Address Unknown Organization [id number]:[facility] [address] [place] [address] Laboratory Report Ordering Provider Test Date Status ROBERT MEDEL 01/18/2025 16:57:00 Final Anticoagulation may affect t esting. Refer to [facility] Test Catalog for a list of effects. Observation Date Value Abnormality Reference (Units ) Status aPTT panel - Platelet poor plasma 01/18/2025 16:57:00 47 Above high normal 21-38 (seconds) Final Performing Location [facility] [place] [address] [place] [address]
--- OUTSIDE RECORDS SUMMARY | 2025-02-13 00:44 | External Medical Summary ---
Author Name Unknown Address Unknown Organization [id number][facility] [address] [place] [address] Laboratory Report Ordering Provider Test Date Status ROBERT MEDEL 01/19/2025 04:57:00 Final Warfarin Therapy
INR: 2 .0-3.0 conventional anticoagulation
INR: 2.5- 3.5 high intensity anticoagulation Observation Date Value Abnormality Reference (Units ) Status PT 01/19/2025 04:57:00 16.7 Above high normal 11 .6-15.2 (seconds) Final INR 01/19/2025 04:57:00 1.3 Above high normal 0. 8-1.2 Final Performing Location [facility] [place] [address] [place] [address]
--- OUTSIDE RECORDS SUMMARY | 2025-02-13 00:44 | External Medical Summary ---
Author Name Unknown Address Unknown Organization K01:LABORATORY [facility] [place] [facility] [place] [facility] [address] [place] [address] Laboratory Report Ordering Provider Test Date Status ROBERT MEDEL 01/18/2025 16:57:00 Final Observation Date Value Abnormality Reference (Units ) Status Heparin, unfractionated level 01/18/2025 16:57:00 <0.10 <0.10 (IU/mL) Final Unfractionated therapeutic r anges for Anti Xa activity:
For Cardiac/Neurologic treatment: 0.3 to 0.6 IU/mL.
For treatment of DVT or Pulmonary Embolism: 0.3 to 0.7 IU/mL. Performing Location LABORATORY [facility] [place] [facility] [place] - [address] [place] [address]
--- OUTSIDE RECORDS SUMMARY | 2025-02-13 00:44 | External Medical Summary ---
Author Name Unknown Address Unknown Organization [id number]:[place]ORY [facility] [place] [address] [place] [address] Laboratory Report Ordering Provider Test Date Status ROBERT MEDEL MALIK 01/19/2025 04:57:00 Final Observation Date Value Abnormality Reference (Units ) Status Triglyceride 01/19/2025 04:57:00 61 <=174 ( mg/dL) Final Triglyceride Reference Range s (mg/dL):
<150 Acceptable
150-174 Borderline high
175-499 High
>=500 Very high Cholesterol 01/19/2025 04:57:00 131 <200 (mg /dL) Final Total Cholesterol Reference Ranges (mg/dL):
<200 Desirable
200-239 Borderline high
>=240 High HDL 01/19/2025 04:57:00 39 Below low normal >49 (mg/dL) Final HDL Cholesterol Reference Ra nges (mg/dL):
>=60 High (Desirable)
<50 Low (Undesirable) For Females
<40 Low (Undesirable) For Males NON-HDL CHOLESTEROL 01/19/2025 04:57:00 92 <=159 (mg/dL) Final Non-HDL Cholesterol Referenc e Range (mg/dL):
<100 Target level for high risk ASCVD patient
<130 Optimal for general population
130-159 Near optimal for general population
160-189 Borderline High
190-219 High
>=220 Very High LDL, (calculated) 01/19/2025 04:57:00 80 <= 129 (mg/dL) Final LDL Cholesterol Reference Ra nges (mg/dL):
<70 Target level for high risk ASCVD patient
<100 Optimal for general population
100-129 Near optimal for general population
130-159 Borderline high
160-189 High
>=190 Very high Performing Location LAB[facility]ATORY [facility] [place] [address] [facility] [address]
--- OUTSIDE RECORDS SUMMARY | 2025-02-13 00:44 | External Medical Summary ---
Author Name Unknown Address Unknown Organization : Laboratory Report Ordering Provider Test Date Status KINGS NASH 01/18/2025 11:38:00 Final Observation Date Value Abnormality Reference (Units ) Status Blood draw [PhenX] 01/18/2025 11:38:00 Aorta Final Hemoglobin [Mass/volume] in Blood by Oximetry 01/18/2025 11:38:00 9.4 Below low normal 12.0-15.3 (g/dL) Final Oxyhemoglobin, Fractional, POC (Oximeter) 01/18/2025 11:38:00 84.7 Below low normal 92.0-100.0 (%) Final Oxygen content, POC (Oximeter) 01/18/2025 11:38:00 11.0 1.1-20.9 (mL/dL) Final Performing Location
--- OUTSIDE RECORDS SUMMARY | 2025-02-13 00:44 | External Medical Summary ---
Author Name Unknown Address Unknown Organization K01:LAB[place]ATORY [facility] [place] [address] [facility] [address] Laboratory Report Ordering Provider Test Date Status ROBERT MEDEL 01/19/2025 04:57:00 Final Observation Date Value Abnormality Reference (Units ) Status HbA1C 01/19/2025 04:57:00 5.2 4.0-5.6 (% ) Final The use of HbA1c to monitor glycemic status is based on normal hemoglobin and HbA composition. This test should not be used in patients with abnormal hemoglobin that affects the half life of the red blood cell or the in vivo glycation rates. Glucose, estimated average 01/19/2025 04:57:00 103 <126 (mg/dL) Final Performing Location LAB[place]ATORY [facility] [place] - [address] [facility] [address]
--- OUTSIDE RECORDS SUMMARY | 2025-02-13 00:44 | External Medical Summary ---
Author Name Unknown Address Unknown Organization K01:LABORATORY [facility] [place] - [address] [facility] [address] Laboratory Report Ordering Provider Test Date Status ROBERT MEDEL HELENA 01/19/2025 04:57:00 Final Observation Date Value Abnormality Reference (Units ) Status BUN 01/19/2025 04:57:00 7 6-20 (mg/dL) Final Creatinine 01/19/2025 04:57:00 0.6 0.5-1.0 (mg/dL) Final Glomerular filtration rate/1.73 sq M.predicted [Volume Rate/Area] in Serum, Plasma or Blood by Creatinine-based formula (CKD-EPI) 01/19/2025 04:57:00 >90 >=60 (mL/min) Final eGFR is calculated based on the CKD-EPI 2020 equation. Sodium 01/19/2025 04:57:00 137 135-146 (m mol/L) Final Potassium 01/19/2025 04:57:00 4.1 3.5-5.1 (m mol/L) Final Cl 01/19/2025 04:57:00 102 98-107 (mm ol/L) Final CO2 01/19/2025 04:57:00 24 22-32 (mmo l/L) Final Anion gap 01/19/2025 04:57:00 11 7-15 (mmol /L) Final Glucose 01/19/2025 04:57:00 87 70-120 (mg /dL) Final Calcium 01/19/2025 04:57:00 9.6 8.4-10.2 ( mg/dL) Final Performing Location LABORATORY [facility] [place] - [address] [place] [address]
--- OUTSIDE RECORDS SUMMARY | 2025-02-13 00:44 | External Medical Summary ---
Author Name Unknown Address Unknown Organization K01:LABORATORY [facility] [place] - [address] [place] [address] Laboratory Report Ordering Provider Test Date Status ROBERT MEDEL 01/19/2025 00:59:00 Final Get stat/now aPTT [address] each heparin dose adjustment

Anticoagulation may affect testing. Refer to [facility] Test Catalog for a list of effects. Observation Date Value Abnormality Reference (Units ) Status aPTT panel - Platelet poor plasma 01/19/2025 00:59:00 92 Above high normal 21-38 (seconds) Final Performing Location LABORATORY [facility] [place] - [facility] [place] [address]
--- OUTSIDE RECORDS SUMMARY | 2025-02-13 00:44 | External Medical Summary | Summary of Care ---
Author Name Unknown Organization [facility] Address [address] [place] [address] Phone [phone] Care Team Providers Care Ginner Name Role Phone Zuleima Garcia MD Primary Care Provider + Reason for Referral * Ancillary Services (Within 10 days (routine)) - Authorized Specialty Diagnoses / Procedures Referred By Contac t Referred To Contact Feed Handler Diagnoses Heart failure with preserved ejection fraction, unspecified HF chronicity (HCC) Lubna Beltre, RN [address] [place] [address] Phone: tel: fax: Referral ID Status Reason Start Date Expiration Date Visits Requested Visits Authorized [id number] Authorized Ancillary Services Required 12/31/[phone] Question Answer Referral Priority Within 10 days (routine) Where should this appointment be scheduled? Efe Comments Is Patient homebound? Yes All sections of this form must be filled out completely. Forms with missing or illegible information will be returned for completion. This form should not be modified in any way. Forms that have been modified will be returned. This form may not be submitted by a home health agency. It must be complete and submitted by the ordering provider. One full business day lead time is required and service will be scheduled based on the next service day for the area [facility] Home Phlebotomy does not service every geographical location on a daily basis. Contact [facility] Client Services at to find out service days for a specific location. Medical Laboratory [facility] Patient Name: Hanh Roman : 1950 Sex: female Address [address] [facility] [address] Provider: @REF@? Zuleima Garcia MD? Diagnosis: (I50.30) Heart failure with preserved ejection fraction, unspecified HF chronicity (HCC) (primary encounter diagnosis) Tests Requested BMP - ONCE starting January 05, 2025 Reason for Visit * Reason Onset Date Comments Appointment 12/29/2024 Acute Encounter Details Date Type Department Care Team (Late st Contact Info) Description 12/29/2024 Telephone Care Coordination and Integration [address] [place] [address] Lubna Beltre RN [address] [place] [address] Appointment (Acute ) Allergies Active Allergy Reactions Criticality Noted Date Comments Ezetimibe 11/28/2023 General malaise or feeling unwell Famotidine Diarrhea High 09/13/2024 Prednisone Muscle pain High 07/15/2024 Pantoprazole Hives 02/07/2022 GI upset Rosuvastatin 11/28/2023 Muscle aches/pains, fatigue Statins 11/01/2022 myalgia Torsemide 08/12/2024 GI symptoms documented as of this encounter (statuses as of 12/31/2024) Medications Ferrous Sulfate 325 (65 Fe) MG [...] as of this encounter (statuses as of 12/31/2024) Active Problems Problem Noted Date Diagnosed Date Lytic lesion of bone on x-ray 07/23/2024 Senile osteoporosis 07/23/2024 Pulmonary edema cardiac cause 07/23/2024 Hyperlipidemia LDL goal <70 08/19/2023 H/O mitral valve repair 12/08/2019 Hx of tricuspid valve repair 12/08/2019 Paroxysmal A-fib 08/15/2019 Hypertension goal BP (blood pressure) < 130/80 documented as of this encounter (statuses as of 12/31/2024) Resolved Problems Problem Noted Date Diagnosed Date Resolved Date HTN, goal below 130/80 08/12/201808/16 documented as of this encounter (statuses as of 12/31/2024) Immunizations Name Administration Dates Next Due COVID-19 mRNA, LNP-s, No Pre serve, 2-Dose Series (Medium) 11/04/2021,02/14/2021,01/24/2021 Covid-19, Mrna, Lnp-s, Pf, B ivalent, [...] No 08/05/2024 Does the household have a [facility] source of income? (Household - for ages [...] AM EDT documented as of this encounter Miscellaneous Notes * Telephone Encounter - Lubna Belrte RN - 12/29/2024 8:56 AM EST Images from the original note were not included. [employer] Sorter: Daughter reached out to with concerns for her mother being more SOB and fatigued recently. Scheduled for valve surgery in [place] on 01/18/25 Patient has been taking extra furosemide for the last 2-3 days. Normally takes 40 mg daily. Has been supplementing with extra 20 mg on Saturday & extra 10 mg on Saturday. + Orthopnea. Patient has been unable to lay flat at for a few weeks. Becomes easily fatigued when walking 3-4 steps Edema to LE feet/ankles Daughter requesting an acute appointment with cardiology today. Offered an acute appt today in Cardiology at [facility] cardiology at [facility] with Tina Sloan, but daughter explains she doesn't think her mom could travel that far , "due to her swelling in her legs". Awaiting to see if another provider may be able to see her in clinic today As per TEAMS message from Gay Holloway: "Dr. Garber is recommending she go to the ER: "she is has severe MR and has been declining over past few months. I would recommend she go to ER. Will prob need a few days of IV lasix. then we can possibly expedite her cafre with transfer to [facility]." Daughter made aware of above message and is hesitant to take mother to ED at this time as recommended. Would like to try to increase her mothers Lasix as per DTP orders to double up on Lasix for 3 days. Plans to take Lasix 40 mg po BID x 3 days. Patient not on any potassium supplements as she explains her mother is allergic to potassium supplements. Advised to increase dietary potassium with an extra banana or cantaloupe, other foods rich inpotassium. cut and cover line worker at valve clinic (Desire Romeo) also made aware pt would like to see if her TAVR procedure and or testing could be moved up in date. Unsure if a sooner date may become available. Plan to continue to monitor patients weights and daily Rpm / Labs if recommended. RPM reviewed: documented in this encounter Plan of Treatment Upcoming Encounters Date Type Department Care Team (Latest Contact Info) Description 01/05/2025 7:00 AM EST Laboratory Lab Mobile Phlebotomy [place] [address] [place] [address] [employer], [facility] Mobile Home Draw [address] [place] [address] 01/07/2025 2:00 PM EST Office Visit Orthopaedics [facility] [address] [place] [phone] Chris Mack PA-C [address] [place] [phone] 01/18/2025 10:00 AM EST Hospital Encounter CRS Waiting [facility], Cardiac Recovery Suite Waiting Unit, [address] [place] [address] Melinda Jin MD [address] [place] [address] 01/18/2025 10:00 AM EST - 01/18/2025 11:00 AM EST Surgery CRS Waiting [facility], Cardiac Recovery Suite Waiting Unit, [address] [place] [address] Melinda Jin MD [address] [place] [address] CORONARY ANGIOGRAPHY W/RIGHT+LEFT CATH 01/18/2025 10:00 AM EST Office Visit Cardiology [facility] [place] [address] [place] [address] [facility] Cardiac [facility] [address] [place] [address] 01/19/2025 7:00 AM EST Appointment Radiology, [place] [address] [place] [phone] 01/19/2025 8:30 AM EST Office Visit Cardiothoracic Surg [facility] [address] [place] [address] Mandeep Stone MD [address] [place] [address] 04/01/2025 9:20 AM EDT Office Visit General Internal Medicine [facility] [address] [place] [place] [address] Zuleima Garcia MD [address] [facility] [place] [address] 04/01/2025 11:00 AM EDT Office Visit Cardiology, [facility] [address] [facility] [place] [address] Daiana Anne CRNP [address] [place] [address] Scheduled Orders Name Type Priority Associated Diagnoses Orde r Schedule BASIC METABOLIC PANEL Lab Routine Heart failure with preserved ejection fraction, unspecified HF chronicity (HCC) Expected: 01/05/2025 (Approximate), Expires: 12/29/2025 Scheduled Procedures Name Priority Associated Diagnoses Date/Ti me CORONARY ANGIOGRAPHY W/RIGHT+LEFT CATH Severe mitral regurgitation 01/18/2025 10:00 AM EST COLONOSCOPY FLEXIBLE PROXIMAL DIAGNOSTIC Recall Iron deficiency anemia due to chronic blood loss Scheduled Referrals Name Type Priority Associated Diagnoses Orde r Schedule HOME PHLEBOTOMY REFERRAL OP Referral Within 10 days (routine) Heart failure with preserved ejection fraction, unspecified HF chronicity (HCC) Ordered: 12/31/2024 Health Maintenance Due Date Last Done Comments Fecal Occult Blood Test 1996 Sigmoidoscopy 1996 Cologuard 08/28/2021 08/28/2018 *BISPHONATE OR OTHER ACCEPTABLE MEDICATION NEEDED FOR OSTEOPOROSIS (REFER TO SMARTSET #1146) 07/25/2024 COVID-19 Vaccine ( season) 2024 10/13/2023, 08/25/2022, 04/13/2022, Additional history exists Depression Screening 09/17/2025 09/17/2024, 08/12/20 24 Mammogram 10/01/2025 10/01/2024, 07/27, 08/14/2023, Additional history exists Albumin/Creatinine Ratio 11/03/2025 11/03/2022, 05/26 GFR 11/23/2025 11/23/2024, 10/26, 11/06/2024, Additional history exists DXA Scan 09/17/2026 09/17/2024 DTap/Tdap Vaccines (2 - Td or Tdap) 05/10/2028 05/10/2018 Lipid Panel 03/04/2029 03/04/2024, 07/28, 11/03/2022, Additional history exists Colonoscopy 08/07/2031 08/07/2021, 08/07/2021 Colorectal Cancer Screening 08/07/2031 Pneumococcal Vaccine: 50+ Years Completed 05/10/2018, 05/10/2018 Zoster Vaccines Completed 06/09/2018, 05/10/2018 VITAMIN D LEVEL ONCE IN A LIFETIME-USE SMARTSET# 17500 Completed 01/12/2023, 06/03/2021, 08/16/2018 Influenza Vaccine (FLU [...] as of this encounter Visit Diagnoses Diagnosis Heart failure with preserved ejection fraction, unspecified HF chronicity (HCC)- Primary Severe mitral regurgitation Mitral valve disorders documented in this encounter Care Teams Ginner Relationship Specialty Start Date End Date Zuleima Garcia MD [address] [place] [address] PCP - General Internal Medicine 08/28/24 documented as of this encounter
--- OUTSIDE RECORDS SUMMARY | 2025-02-13 00:44 | External Medical Summary ---
Author Name Unknown Address Unknown Organization K01:LABORATORY [facility] [place] - [address] [facility] [address] Laboratory Report Ordering Provider Test Date Status KINGS NASH 01/19/2025 06:58:00 Final Anticoagulation may affect t esting. Refer to [facility] Test Catalog for a list of effects. Observation Date Value Abnormality Reference (Units ) Status aPTT panel - Platelet poor plasma 01/19/2025 06:58:00 97 Above high normal 21-38 (seconds) Final Performing Location LABORATORY [facility] [place] - [address] [place] [address]
--- OUTSIDE RECORDS SUMMARY | 2025-02-13 00:44 | External Medical Summary ---
Author Name Unknown Address Unknown Organization K01:LABORATORY [facility] [place] - [facility] [address] [place] [address] Laboratory Report Ordering Provider Test Date Status KAREN PINEDA 01/18/2025 10:18:48 Final Observation Date Value Abnormality Reference (Units ) Status BUN 01/18/2025 10:18:48 8 6-20 (mg/dL) Final Creatinine 01/18/2025 10:18:48 0.6 0.5-1.0 (mg/dL) Final Glomerular filtration rate/1.73 sq M.predicted [Volume Rate/Area] in Serum, Plasma or Blood by Creatinine-based formula (CKD-EPI) 01/18/2025 10:18:48 >90 >=60 (mL/min) Final eGFR is calculated based on the CKD-EPI 2020 equation. Sodium 01/18/2025 10:18:48 135 135-146 (m mol/L) Final Potassium 01/18/2025 10:18:48 4.8 3.5-5.1 (m mol/L) Final Cl 01/18/2025 10:18:48 99 98-107 (mm ol/L) Final CO2 01/18/2025 10:18:48 26 22-32 (mmo l/L) Final Anion gap 01/18/2025 10:18:48 10 7-15 (mmol /L) Final Glucose 01/18/2025 10:18:48 92 70-120 (mg /dL) Final Calcium 01/18/2025 10:18:48 10.0 8.4-10.2 ( mg/dL) Final Albumin 01/18/2025 10:18:48 3.4 Below low normal 3.8 -5.0 (g/dL) Final Phosphate 01/18/2025 10:18:48 3.6 2.5-4.8 (m g/dL) Final Performing Location LABORATORY [facility] [place] - [address] [place] [address]
--- OUTSIDE RECORDS SUMMARY | 2025-02-13 00:44 | External Medical Summary ---
Author Name Unknown Address Unknown Organization K01:LABORATORY [facility] [place] - [address] [place] [address] Laboratory Report Ordering Provider Test Date Status ROBERT MEDEL 01/19/2025 04:57:00 Final Observation Date Value Abnormality Reference (Units ) Status Phosphate 01/19/2025 04:57:00 3.9 2.5-4.8 (m g/dL) Final Performing Location LABORATORY [facility] - [address] [place] [address]
--- OUTSIDE RECORDS SUMMARY | 2025-02-13 00:44 | External Medical Summary ---
Author Name Unknown Address Unknown Organization K01:LAB[facility]ATORY [facility] [place] [address] [place] [address] Laboratory Report Ordering Provider Test Date Status ROBERT MEDEL 01/19/2025 04:57:00 Final Observation Date Value Abnormality Reference (Units ) Status Magnesium 01/19/2025 04:57:00 2.2 1.5-2.6 (m g/dL) Final Performing Location LABORATORY [facility] - [address] [place] [address]
--- OUTSIDE RECORDS SUMMARY | 2025-02-13 00:44 | External Medical Summary ---
Author Name Unknown Address Unknown Organization K01:LABORATORY [facility] [place] - [address] [place] [address] Laboratory Report Ordering Provider Test Date Status ROBERT MEDEL 01/18/2025 16:57:00 Final Warfarin Therapy
INR: 2 .0-3.0 conventional anticoagulation
INR: 2.5- 3.5 high intensity anticoagulation Observation Date Value Abnormality Reference (Units ) Status PT 01/18/2025 16:57:00 16.6 Above high normal 11 .6-15.2 (seconds) Final INR 01/18/2025 16:57:00 1.3 Above high normal 0. 8-1.2 Final Performing Location LABORATORY [facility] [place] - [address] [place] [address]
--- OUTSIDE RECORDS SUMMARY | 2025-02-13 00:44 | External Medical Summary ---
Author Name Unknown Address Unknown Organization : Laboratory Report Ordering Provider Test Date Status KINGS NASH 01/18/2025 11:20:00 Final Observation Date Value Abnormality Reference (Units) Status Blood draw [PhenX] 01/18/2025 11:20:00 Pulmonary Artery Final Hemoglobin [Mass/volume] in Blood by Oximetry 01/18/2025 11:20:00 9.7 Below low normal 12.0-15.3 (g/dL) Final Oxyhemoglobin, Fractional, POC (Oximeter) 01/18/2025 11:20:00 47.5 Below low normal 92.0-100.0 (%) Final Oxygen content, POC (Oximeter) 01/18/2025 11:20:00 6.4 1.1-20.9 (mL/dL) Final Performing Location
--- OUTSIDE RECORDS SUMMARY | 2025-02-13 00:44 | External Medical Summary | Summary of Care ---
Author Name Unknown Organization [facility] Address [address] [place] [address] Phone [phone] Care Team Providers Care Rotary Engine Assembler Name Role Phone Zuleima Garcia MD Primary Care Provider + Reason for Visit * Reason Comments Knee Pain Pt presents for R kn ee pain/swelling Encounter Details Date Type Department Care Team (Latest Contact Info) Description 01/07/2025 2:00 PM EST Office Visit Orthopaedics [facility] [address] [place] [phone] Chris Mack PA-C [address] [place] [phone] Primary osteoarthritis of one knee, right*; Chronic [...] mRNA, LNP-s, No Pre serve, 2-Dose Series ([employer]) 11/04/2021,02/14/2021,01/24/2021 Covid-19, Mrna, Lnp-s, Pf, B ivalent, 30 Mcg, IM, 12 yrs and above ([employer]) 08/25/2022 Pneumococcal Conjugate Vacc, 13 Valent (Prevnar) [...] with ice and heat as well as oxen-yoe-bldykun topical gels and creams with little relief. [...] performed by Binh Calzada MD at ENDOSCOPY [facility] EGD, FLEXIBLE, DIAGNOSTIC 08/07/2021 inflammatory cells on bx / ESOPHAGOGASTRODUODENOSCOPY (EGD), FLEXIBLE, TRANSORAL, DIAGNOSTIC performed by Binh Calzada MD at ENDOSCOPY [facility] EGD, FLEXIBLE, DIAGNOSTIC 08/11/2021 erosive gastropathy, duodenal ulcer / INPT [facility] REMOVE CATARACT, INSERT LENS PROSTH REPAIR TRICUSPID VALVE 11/09/2017 [facility] REPAIR TRICUSPID VALVE 11/09/2017 [facility] Review of patient's allergies indicates: Allergen Reactions [...] Stability Do you currently live in a care home or have no steady place to sleep [...] called to verify the correctpatient, procedure, equipment, lead performance support analyst and site/side marked as required. Patient was prepped and draped in the usual sterile fashion. This chart was completed in part utilizing [employer] Speech Voice Recognition Software. Grammatical errors, random [...] 10:00 AM EST Hospital Encounter CRS Waiting [facility], Cardiac Recovery Suite Waiting Unit, [address] [place] [address] Melinda Jin MD [facility] [place] [address] 01/18/2025 10:00 AM EST - 01/18/2025 11:00 AM EST Surgery CRS Waiting [facility], Cardiac Recovery Suite Waiting Unit, [address] [place] [address] Melinda Jin MD [facility] [place] [address] CORONARY ANGIOGRAPHY W/RIGHT+LEFT CATH 01/18/2025 10:00 AM EST Office Visit Cardiology [facility] [place] [address] [place] [address] [facility] Cardiac [place] [address] [place], [place] [phone] 01/19/2025 7:00 AM EST Appointment Radiology, [address] [phone] 01/19/2025 8:30 AM EST Office Visit Cardiothoracic Surg [facility], [address] [address] Mandeep Stone MD [facility] [place] [address] 04/01/2025 9:20 AM EDT Office Visit General Internal Medicine [facility] [address] [place] [address] Zuleima Garcia MD [address] [place] [address] 04/01/2025 11:00 AM EDT Office Visit Cardiology, [facility] [address] [place] [address] Daiana Anne CRNP [address] [place] [address] Scheduled Procedures Name Priority Associated Diagnoses Date/Ti [...] D LEVEL ONCE IN A LIFETIME-USE SMARTSET# 88304 Completed 01/12/2023, 06/03/2021, 08/16/2018 Influenza Vaccine (FLU [...] Procedure Name Priority Date/Time Associated Diagnosis Comments IN ARTHROCENTESIS ASPIR&/INJ MAJOR JT/BURSA W/O US Routine 01/07/2025 2:36 PM EST Primary osteoarthritis of one knee, right XR KNEE 4 OR MORE VIEWS Routine 01/07/2025 2:32 PM EST Chronic pain of right knee documented in this encounter Results * IN ARTHROCENTESIS ASPIR&/INJ MAJOR JT/BURSA W/O US (01/07/2025 [...] to verify the correct patient, procedure, equipment, lead performance support analyst and site/side marked as required. Patient was [...] IMPRESSION Degenerative changes Chris Mack PA-Rigoberto RADIOLOGY ([facility]) Final Result documented in this encounter [...] Right documented in this encounter Care Teams Rotary Engine Assembler Relationship Specialty Start Date End Date Zuleima Garcia MD [address] [place] [address] PCP - General Internal Medicine 08/28/24 documented as of this encounter
--- OUTSIDE RECORDS SUMMARY | 2025-02-13 00:45 | External Medical Summary | Summary of Care ---
Author Name Unknown Organization [facility] Address [address] [place] [address] Phone [phone] Care Team Providers Care Finishing Machine Operator Name Role Phone Zuleima Garcia MD Primary Care Provider + Encounter Details Date Type Department Care Team (Late st Contact Info) Description 12/16/2024 1:30 PM EST Office Visit Cardiology, [facility] [address] [place] [address] Nelson Mariee MD [address] [place] [address] Severe mitral regurgitation*; S/P mitral valve repair Allergies Active Allergy Reactions Criticality Noted Date Comments Ezetimibe 11/28/2023 General malaise or feeling unwell Famotidine Diarrhea High 09/13/2024 Prednisone Muscle pain High 07/15/2024 Pantoprazole Hives 02/07/2022 GI upset Rosuvastatin 11/28/2023 Muscle aches/pains, fatigue Statins 11/01/2022 myalgia Torsemide 08/12/2024 GI symptoms documented as of this encounter (statuses as of 12/16/2024) Medications Ferrous Sulfate 325 (65 Fe) MG [...] as of this encounter (statuses as of 12/16/2024) Active Problems Problem Noted Date Diagnosed Date Lytic lesion of bone on x-ray 07/23/2024 Senile osteoporosis 07/23/2024 Pulmonary edema cardiac cause 07/23/2024 Hyperlipidemia LDL goal <70 08/19/2023 H/O mitral valve repair 12/08/2019 Hx of tricuspid valve repair 12/08/2019 Paroxysmal A-fib 08/15/2019 Hypertension goal BP (blood pressure) < 130/80 documented as of this encounter (statuses as of 12/16/2024) Resolved Problems Problem Noted Date Diagnosed Date Resolved Date HTN, goal below 130/80 08/12/201808/16 documented as of this encounter (statuses as of 12/16/2024) Immunizations Name Administration Dates Next Due COVID-19 mRNA, LNP-s, No Pre serve, 2-Dose Series ([employer]) 11/04/2021,02/14/2021,01/24/2021 Covid-19, Mrna, Lnp-s, Pf, B ivalent, 30 Mcg, IM, 12 yrs and above ([employer]) 08/25/2022 Pneumococcal Conjugate Vacc, 13 Valent (Prevnar) [...] ages 0-17 years) Not on file 08/05/2024 Comments No Sex and Gender Information Value Date Recorded Sex Assigned at Female 08/16/2020 9:31 AM EDT Legal Sex Female 4:15 PM EDT Gender Identity Female 08/16/2020 9:31 AM EDT Sexual Orientation Straight 08/16/2020 9: 31 AM EDT documented as of this encounter Last Filed Vital Signs Vital Sign Reading Time Taken Comments Blood Pressure 124/80 12/16/2024 1:25 PM EST Pulse 80 12/16/2024 1:25 PM EST Temperature - - Respiratory Rate 14 12/16/2024 1:25 PM EST Oxygen Saturation - - Inhaled Oxygen Concentration - - Weight 60.6 kg (133 lb 9.6 oz) 12/16/2024 1:25 P M EST Height - - Body Mass Index 22.93 10/01/2024 1:00 PM EST documented in this encounter Progress Notes * Daiana Anne CRNP - 12/16/2024 1:30 PM EST Images from the original note were not included. Cardiology Valve Clinic Note 12/16/2024 Primary Manager Front: Dr. Ceballos Referred by: Dr. 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 Last seen by general cardiology 11/19/2024 (Dr. Ceballos) as per recent note which states the following: Mitral valve regurgitation Contributing to atrial fibrillation and overall cardiac symptoms. Scheduled for SHRAVAN with Dr. Garber to assess mitral valve and left atrial appendage ligation. Discussed potential for less invasive procedures like SHAWN if indicated. Patient prefers less invasive options over repeat open heart surgery. Discussed anticipated outcomes, including potential for improved valve function and reduced atrial fibrillation. - Proceed with SHRAVAN on December 01 - Consider less invasive procedures like SHAWN if indicated - Coordinate with Dr. Mariee for potential earlier appointment Here today accompanied by daughter. Patient has had multiple recent hospitalizations in [...] with even the slightest movement. They utilize [employer] haris. Denies any pre-syncope or syncope. Endorses fatigue, but no daytime naps. Patient denies abnormal bleeding. Denies any known complications with anesthesia. She has her own teeth, follows with a dentist routinely, last seen in August. Follows with a dentist routinely. Patient lives at home with daughter Denies tobacco, alcohol, and illicit drug use. REVIEW OF SYSTEMS: See HPI for pertinent positives. All others negative other than those noted in the HPI. CONSTITUTIONAL: No change in weight, No weakness, No fatigue and No fevers, No sweats or chills. PULMONARY: No cough, sputum, or hemoptysis, No wheezing, No shortness or breath and No recent change in breathing. CARDIOVASCULAR: No chest pain, No dyspnea on exertion, No edema, No palpitations and No syncope. GASTROINTESTINAL: No abdominal pain, No change in bowel habits, No significant heartburn, No nausea, No vomiting, No diarrhea, No constipation, No blood in stools or black tarry stools. No dysphagia. HEMATOLOGIC: No abnormal bleeding and No bruising. NEUROLOGICAL: Normal balance, No headaches and No weakness. Current Outpatient Medications Medication Sig Dispense Refill [...] 1 Tablet before bedtime. 180 Tablet 3 Furosemide 20 MG Oral Tablet (Lasix) Two tablets by mouth daily with an extra dose as needed for weight gain or worsening leg swelling 210 Tablet 3 Digoxin 125 MCG Oral Tablet (Lanoxin) Take 1 Tablet by mouth in the morning. 90 Tablet 3 DIURETIC TITRATION PLAN If no improvement on day 3, contact heart failure managing provider. 1 Each0 No current facility-administered medications for this visit. Review of patient's allergies indicates: Allergen Reactions Famotidine Diarrhea Prednisone Muscle pain Ezetimibe General malaise or feeling unwell Protonix [Pantoprazole] Hives GI upset Rosuvastatin Muscle aches/pains, fatigue Statins myalgia Torsemide GI symptoms Past Medical History: Diagnosis Date Hyperlipidemia LDL goal <70 Paroxysmal A-fib (HCC) Past Surgical History: Procedure Laterality Date COLONOSCOPY W/ BIOPSY (RECTUM) 2014 negative COLONOSCOPY, DIAGNOSTIC (RECTUM) 08/07/2021 normal, repeat 5 yrs / COLONOSCOPY FLEXIBLE PROXIMAL DIAGNOSTIC performed by Binh Calzada MD at ENDOSCOPY [facility] EGD, FLEXIBLE, DIAGNOSTIC 08/07/2021 inflammatory cells on bx / ESOPHAGOGASTRODUODENOSCOPY (EGD), FLEXIBLE, TRANSORAL, DIAGNOSTIC performed by Binh Calzada MD at ENDOSCOPY [facility] EGD, FLEXIBLE, DIAGNOSTIC 08/11/2021 erosive gastropathy, duodenal ulcer / INPT [facility] REMOVE CATARACT, INSERT LENS PROSTH REPAIR TRICUSPID VALVE 11/09/2017 [facility] REPAIR TRICUSPID VALVE 11/09/2017 [facility] Family History Problem Relation Name Age of Onset Stroke Mother 52 Heart attack Father 63 Heart attack Sister Social History Socioeconomic History Marital status: Spouse [...] Insecurity: No Food Insecurity (08/05/2024) Food Insecurity Do you need food for this week? (Adult - for ages 18 years and over): No Are you able to get enough food for your family? (Household - for ages 0-17 years): Not on file Does your family need food this week? (Household - for ages 0-17 years): Not on file Do you always have enough food for your family? (Household - for ages 0-17 years): Not on file Transportation Needs: No Transportation Needs (08/05/2024) Transportation [...] Stability Do you currently live in a usp or have no steady place to sleep [...] - for ages0-17 years): Not on file PHYSICAL EXAM: BP 124/80 | Pulse 80 | Resp 14 | Wt 60.6 kg (133 lb 9.6 oz) | BMI 22.93 kg/m | BSA 1.65 m Wt Readings from Last 3 Encounters: 12/16/24 60.6 kg (133 lb 9.6 oz) 11/19/24 59.1 kg (130 lb 4.8 oz) 11/17/24 57.8 kg (127 lb 6.4 oz) General: No acute distress. A+Ox3. HEENT: Normocephalic. Atraumatic. PERRL. EOMI. Conjunctiva and sclera clear. NECK: No carotid bruits. No JVD. Carotid upstrokes are brisk. Heart: RRR. S1 and S2 noted. +3/6 systolic murmur. No rubs or gallops. PMI non displaced. Lungs: Clear to auscultation. No wheezes.No rhonchi. No rales. Abdomen: Normal bowel sounds. Soft. Nontender. No masses or organomegaly. No abdominal bruits. Extremities: No edema. No clubbing or cyanosis. Pulses: radial=2/4, posterior tibial=2/4, dorsalis pedis = 2/4. NEURO: No focal deficits. PSYCH: Appropriate affect and insight. DATA: Labs & Imaging Reviewed Below: SHRAVAN 12/03/2024 [facility], preformed by Dr. Garber EKG 11/19/2024 CONCLUSIONS: Atrial fibrillation Marked ST abnormality, possible inferior subendocardial injury Abnormal ECG When compared with ECG of 17-Aug-2024 11:20, Atrial fibrillation has replaced Atrial flutter Ventricular Rate: 89 Echocardiogram 10/06/2024 Interpretation Summary The qualitative LV ejection fraction [...] There is no evidence of pulmonary hypertension. This study has what is deemed to be a "significant abnormality" consistent with ACT 112. See additional documentation regarding notification of patient and ordering provider. IMPRESSION/PLAN: Severe mitral regurgitation (Primary) S/P mitral valve repair -severely symptomatic severe MR with recurrent heart failure hospitalizations. Patient care was discussed/coordinated with Dr. Mariee. Further recommendations per Dr. Mariee's assessment and plan. The patient agrees to the above plan and will call with additional questions or concerns. All questions were answered to the patients satisfaction. ER with all emergencies advised. [facility], [address] [place] [address] Follow-up: Return if symptoms worsen or fail to improve. | Check-out note: Coronary angio, RHC and CT scan, will be arranged by Andrew Follow up to be decided pending testing I spent a total of 45 minutes on the date of service in preparation, delivery, and documentation ofthe care provided to Hanh Roman excluding any time spent in the performance of separately billed services. This chart was completed in part utilizing [employer] Speech Voice Recognition Software. Grammatical errors, random word insertions, prounoun errors, and incomplete sentences are an occasional consequence of this system due to software limitations, ambient noise, and hardware issues. Any formal questions or concerns about the content, text, or information contained within the body of this dictation should be directly addressed to the provider for clarification. * Nelson Mariee MD - 12/16/2024 1:28 PM EST I have reviewed the advanced practitioner's documentation on the date of service referenced in note, and I agree with, and take responsibility for the plan of care. 74 year old female with aortic stenosis Patient of Dr. Ceballos MVrepair with 34 mm CE ring, TVrepair, MAZE and RODOLFO ligation Acute heart failure exacerbations SHRAVAN showed severe MR - tough imaging Coronary angiogram, right heart cath, CT scan and surgical risk stratification. We may need to consider tip to base lampoon if we go in the direction of TMVR. Nelson Mariee MD MPH Interventional Cardiology Pager: [phone] 12/16/24 1:55 PM documented in this encounter Nursing Notes * Alina Han LPN - 12/16/2024 1:24 PM EST Examination Room: 17 Name: Hanh Roman Date of : 1950 Reason for Visit: new Problems/Concerns: Shravan results, soboe Interim Hosp(s): None Chest Pain/SOB: Denies chest pain, soboe MyChart Discussed: YES Patient was instructed to not get up on the exam table until directed and assisted by their provider; patient is to remain seated in the chair/ wheelchair/ exam table for fall prevention and safety reasons. Patient is aware staff will assist stepping down off exam table with personnel. documented in this encounter Plan of Treatment Upcoming Encounters Date Type Department Care Team (Late st Contact Info) Description 04/01/2025 9:20 AM EDT Office Visit General Internal Medicine [facility] [address] [place] [address] Zuleima Garcia MD [address] [place] [address] 04/01/2025 11:00 AM EDT Office Visit Cardiology, [facility] [place] [address] Daiana Anne CRNP [address] [place] [address] Scheduled Procedures Name Priority Associated Diagnoses Date/Ti [...] D LEVEL ONCE IN A LIFETIME-USE SMARTSET# [id number] Completed 01/12/2023, 06/03/2021, 08/16/2018 Influenza Vaccine (FLU [...] as of this encounter Visit Diagnoses Diagnosis Severe mitral regurgitation- Primary Mitral valve disorders S/P mitral valve repair Other postprocedural status documented in this encounter Care Teams Finishing Machine Operator Relationship Specialty Start Date End Date Zuleima Garcia MD [address] [place] [address] PCP - General Internal Medicine 08/28/24 documented as of this encounter
--- OUTSIDE RECORDS SUMMARY | 2025-02-13 00:45 | External Medical Summary | Summary of Care ---
Author Name Unknown Organization [facility] Address [address] [place] [address] Phone [phone] Care Team Providers Care Tube Bender Hand Name Role Phone Zuleima Garcia MD Primary Care Provider + Reason for Referral * Precert (Within 10 days (routine)) - Authorized Specialty Diagnoses / Procedures Referred By Contac t Referred To Contact Radiology Diagnoses Mitral regurgitation Procedures CTA TAVR GATED STUDY CRS [facility], Cardiac Recovery Suite, [address] [address] Phone: tel: Referral ID Status Reason Start Date Expiration Date V isits Requested Visits Authorized [id number] Authorized 01/01/[phone] Encounter Details Date Type Department Care Team (Late st Contact Info) Description 12/18/2024 Orders Only CRS [facility], Cardiac Recovery Suite, [address] [address] Desire Leon RN Mitral regurgitation* Allergies Active Allergy Reactions Criticality Noted Date Comments Ezetimibe 11/28/2023 General malaise or feeling unwell Famotidine Diarrhea High 09/13/2024 Prednisone Muscle pain High 07/15/2024 Pantoprazole Hives 02/07/2022 GI upset Rosuvastatin 11/28/2023 Muscle aches/pains, fatigue Statins 11/01/2022 myalgia Torsemide 08/12/2024 GI symptoms documented as of this encounter (statuses as of 12/18/2024) Medications Ferrous Sulfate 325 (65 Fe) MG [...] as of this encounter (statuses as of 12/18/2024) Active Problems Problem Noted Date Diagnosed Date Lytic lesion of bone on x-ray 07/23/2024 Senile osteoporosis 07/23/2024 Pulmonary edema cardiac cause 07/23/2024 Hyperlipidemia LDL goal <70 08/19/2023 H/O mitral valve repair 12/08/2019 Hx of tricuspid valve repair 12/08/2019 Paroxysmal A-fib 08/15/2019 Hypertension goal BP (blood pressure) < 130/80 documented as of this encounter (statuses as of 12/18/2024) Resolved Problems Problem Noted Date Diagnosed Date Resolved Date HTN, goal below 130/80 08/12/201808/16 documented as of this encounter (statuses as of 12/18/2024) Immunizations Name Administration Dates Next Due COVID-19 mRNA, LNP-s, No Pre serve, 2-Dose Series ([employer]) 11/04/2021,02/14/2021,01/24/2021 Covid-19, Mrna, Lnp-s, Pf, B ivalent, 30 Mcg, IM, 12 yrs and above ([employer]) 08/25/2022 Pneumococcal Conjugate Vacc, 13 Valent (Prevnar) [...] AM EDT documented as of this encounter Plan of Treatment Upcoming Encounters Date Type Department Care Team (Latest Contact Info) Description 01/18/2025 10:00 AM EST Hospital Encounter CRS Waiting [facility], Cardiac Recovery Suite Waiting Unit, [address] [place] [address] Melinda Jin MD [address] [place] [address] 01/18/2025 10:00 AM EST - 01/18/2025 11:00 AM EST Surgery CRS Waiting [facility], Cardiac Recovery Suite Waiting Unit, [address] [place] [address] Melinda Jin MD [address], [place] [id number] CORONARY ANGIOGRAPHY W/RIGHT+LEFT CATH 01/18/2025 10:00 AM EST Office Visit Cardiology [facility] [place] [address] [place] [address] [facility] Cardiac Recovery [facility] [address] [place] [address] 01/19/2025 8:30 AM EST Office Visit Cardiothoracic Surg [facility], [place] [address] [place] [address] Mandeep Stone MD [address] [place] [address] 04/01/2025 9:20 AM EDT Office Visit General Internal Medicine [facility] [address] [facility] [place] [address] Zuleima Garcia MD [address] [place] [address] 04/01/2025 11:00 AM EDT Office Visit Cardiology, [facility] [address] [facility] [place] [address] Daiana Anne CRNP [address] [place] [id number] Scheduled Orders Name Type Priority Associated Diagnoses Orde r Schedule CTA TAVR GATED STUDY Medical Imaging Routine Mitral regurgitation Expected: 01/01/2025, Expires: 02/15/2025 Scheduled Procedures Name Priority Associated Diagnoses Date/Ti [...] D LEVEL ONCE IN A LIFETIME-USE SMARTSET# [id number] Completed 01/12/2023, 06/03/2021, 08/16/2018 Influenza Vaccine (FLU [...] as of this encounter Visit Diagnoses Diagnosis Mitral regurgitation- Primary Mitral valve disorders Severe mitral regurgitation Mitral valve disorders documented in this encounter Care Teams Tube Bender Hand Relationship Specialty Start Date End Date Zuleima Garcia MD [address] [place] [id number] PCP - General Internal Medicine 08/28/24 documented as of this encounter
--- OUTSIDE RECORDS SUMMARY | 2025-02-13 00:45 | External Medical Summary | Summary of Care ---
Author Name Unknown Organization [facility] Address [address] [place] [address] Phone [phone] Care Team Providers Care Education Paraprofessional Name Role Phone Zuleima Garcia MD Primary Care Provider + Encounter Details Date Type Department Care Team (Late st Contact Info) Description 12/03/2024 Result Scan Unspecified Department Antonio Garber, DO [address] [place] [address] <No scans attached> Allergies Active Allergy Reactions Criticality Noted Date Comments Ezetimibe 11/28/2023 General malaise or feeling unwell Famotidine Diarrhea High 09/13/2024 Prednisone Muscle pain High 07/15/2024 Pantoprazole Hives 02/07/2022 GI upset Rosuvastatin 11/28/2023 Muscle aches/pains, fatigue Statins 11/01/2022 myalgia Torsemide 08/12/2024 GI symptoms documented as of this encounter (statuses as of 12/07/2024) Medications Ferrous Sulfate 325 (65 Fe) MG [...] as of this encounter (statuses as of 12/07/2024) Active Problems Problem Noted Date Diagnosed Date Lytic lesion of bone on x-ray 07/23/2024 Senile osteoporosis 07/23/2024 Pulmonary edema cardiac cause 07/23/2024 Hyperlipidemia LDL goal <70 08/19/2023 H/O mitral valve repair 12/08/2019 Hx of tricuspid valve repair 12/08/2019 Paroxysmal A-fib 08/15/2019 Hypertension goal BP (blood pressure) < 130/80 documented as of this encounter (statuses as of 12/07/2024) Resolved Problems Problem Noted Date Diagnosed Date Resolved Date HTN, goal below 130/80 08/12/201808/16 documented as of this encounter (statuses as of 12/07/2024) Immunizations Name Administration Dates Next Due COVID-19 mRNA, LNP-s, No Pre serve, 2-Dose Series ([employer]) 11/04/2021,02/14/2021,01/24/2021 Covid-19, Mrna, Lnp-s, Pf, B ivalent, 30 Mcg, IM, 12 yrs and above ([employer]) 08/25/2022 Pneumococcal Conjugate Vacc, 13 Valent (Prevnar) [...] 12/16/2024 1:30 PM EST Office Visit Cardiology, [facility] [address] [facility] [place] [address] Nelson Mariee MD [address] [facility] [place] [id number] 04/01/2025 9:20 AM EDT Office Visit General Internal Medicine [facility] [address] [facility] [place], [place] [address] Zuleima Garcia MD [address] [facility] [place] [address] 04/01/2025 11:00 AM EDT Office Visit Cardiology, [facility] [address] [facility] [place] [address] Daiana Anne CRNP [address] [place] [address] Scheduled Procedures Name Priority Associated Diagnoses Date/Ti [...] D LEVEL ONCE IN A LIFETIME-USE SMARTSET# [id number] Completed 01/12/2023, 06/03/2021, 08/16/2018 Influenza Vaccine (FLU [...] Procedure Name Priority Date/Time Associated Diagnosis Comments ECHOCARDIOLOGY SCANNED RESULT 12/03/2024 documented in this encounter Results * ECHOCARDIOLOGY SCANNED RESULT (12/03/2024) 12/03/2024 us Antonio Garber DO ECHOCARDIOLOGY Final Resul t documented in this encounter Care Teams Education Paraprofessional Relationship Specialty Start Date End Date Zuleima Gacria MD [address] [facility] [place] [address] PCP - General Internal Medicine 08/28/24 documented as of this encounter
--- OUTSIDE RECORDS SUMMARY | 2025-02-13 00:45 | External Medical Summary | Summary of Care ---
Author Name Unknown Organization [facility] Address [address] [place] [address] Phone [phone] Care Team Providers Care Computer Systems Technician Name Role Phone Zuleima Garcia MD Primary Care Provider + Encounter Details Date Type Department Care Team (Late st Contact Info) Description 12/14/2024 Population Health External Data Unspecified Department Allergies Active Allergy Reactions Criticality Noted Date Comments Ezetimibe 11/28/2023 General malaise or feeling unwell Famotidine Diarrhea High 09/13/2024 Prednisone Muscle pain High 07/15/2024 Pantoprazole Hives 02/07/2022 GI upset Rosuvastatin 11/28/2023 Muscle aches/pains, fatigue Statins 11/01/2022 myalgia Torsemide 08/12/2024 GI symptoms documented as of this encounter (statuses as of 12/14/2024) Medications Ferrous Sulfate 325 (65 Fe) MG [...] as of this encounter (statuses as of 12/14/2024) Active Problems Problem Noted Date Diagnosed Date Lytic lesion of bone on x-ray 07/23/2024 Senile osteoporosis 07/23/2024 Pulmonary edema cardiac cause 07/23/2024 Hyperlipidemia LDL goal <70 08/19/2023 H/O mitral valve repair 12/08/2019 Hx of tricuspid valve repair 12/08/2019 Paroxysmal A-fib 08/15/2019 Hypertension goal BP (blood pressure) < 130/80 documented as of this encounter (statuses as of 12/14/2024) Resolved Problems Problem Noted Date Diagnosed Date Resolved Date HTN, goal below 130/80 08/12/201808/16 documented as of this encounter (statuses as of 12/14/2024) Immunizations Name Administration Dates Next Due COVID-19 mRNA, LNP-s, No Pre serve, 2-Dose Series ([employer]) 11/04/2021,02/14/2021,01/24/2021 Covid-19, Mrna, Lnp-s, Pf, B ivalent, [...] No 08/05/2024 Does the household have a [facility] source of income? (Household - for ages [...] 12/16/2024 1:30 PM EST Office Visit Cardiology, [facility] [address] [place] [address] Nelson Mariee MD [address] [facility] [place] [address] 04/01/2025 9:20 AM EDT Office Visit General Internal Medicine [address] [place] [address] [place] [address] Zuleima Garcia MD [address] [place] [address] 04/01/2025 11:00 AM EDT Office Visit Cardiology, [facility] [address] [place] [address] Daiana Anne CRNP [address] [place] [address] Scheduled Procedures Name Priority Associated Diagnoses Date/Ti [...] D LEVEL ONCE IN A LIFETIME-USE SMARTSET# [id number] Completed 01/12/2023, 06/03/2021, 08/16/2018 Influenza Vaccine (FLU [...] filedocumented as of this encounter Care Teams Computer Systems Technician Relationship Specialty Start Date End Date Zuleima Garcia MD [address] [place] [address], [place] [address] PCP - General Internal Medicine 08/28/24 documented as of this encounter
--- OUTSIDE RECORDS SUMMARY | 2025-02-13 00:45 | External Medical Summary | Summary of Care ---
Author Name Unknown Organization [facility] Address [address] [place] [address] Phone [phone] Care Team Providers Care Records Management Technician Name Role Phone Zuleima Garcia MD Primary Care Provider + Encounter Details Date Type Department Care Team (Late st Contact Info) Description 12/15/2024 Documentation [facility], Cardiac Recovery Suite, [facility] [address] [place] [address] Desire Leon, RN Allergies Active Allergy Reactions Criticality Noted Date Comments Ezetimibe 11/28/2023 General malaise or feeling unwell Famotidine Diarrhea High 09/13/2024 Prednisone Muscle pain High 07/15/2024 Pantoprazole Hives 02/07/2022 GI upset Rosuvastatin 11/28/2023 Muscle aches/pains, fatigue Statins 11/01/2022 myalgia Torsemide 08/12/2024 GI symptoms documented as of this encounter (statuses as of 12/15/2024) Medications Ferrous Sulfate 325 (65 Fe) MG [...] as of this encounter (statuses as of 12/15/2024) Active Problems Problem Noted Date Diagnosed Date Lytic lesion of bone on x-ray 07/23/2024 Senile osteoporosis 07/23/2024 Pulmonary edema cardiac cause 07/23/2024 Hyperlipidemia LDL goal <70 08/19/2023 H/O mitral valve repair 12/08/2019 Hx of tricuspid valve repair 12/08/2019 Paroxysmal A-fib 08/15/2019 Hypertension goal BP (blood pressure) < 130/80 documented as of this encounter (statuses as of 12/15/2024) Resolved Problems Problem Noted Date Diagnosed Date Resolved Date HTN, goal below 130/80 08/12/201808/16 documented as of this encounter (statuses as of 12/15/2024) Immunizations Name Administration Dates Next Due COVID-19 mRNA, LNP-s, No Pre serve, 2-Dose Series ([employer]) 11/04/2021,02/14/2021,01/24/2021 Covid-19, Mrna, Lnp-s, Pf, B ivalent, 30 Mcg, IM, 12 yrs and above ([employer]) 08/25/2022 Pneumococcal Conjugate Vacc, 13 Valent (Prevnar) [...] No 08/05/2024 Does the household have a [facility] source [facility] income? (Household - for ages [...] as of this encounter Progress Notes * Desire Leon, RN - 12/15/2024 1:25 PM EST Images from the original note were not included. Risk Factors: Severe MR, prior MVr (#34 CE Ring), TV plasty, Maze, RODOLFO ligation (2017), HFpEF, afib, HTN RENAN Wong Interventional Valve Nurse Navigator documented in this encounter Plan of Treatment Upcoming Encounters Date Type Department Care Team (Late st Contact Info) Description 12/16/2024 1:30 PM EST Office Visit Cardiology, [facility] [address] [facility] [place] [address] Nelson Mariee MD [address] [place] [address] 04/01/2025 9:20 AM EDT Office Visit General Internal Medicine [facility] 200 [facility] [place] [address] Zuleima Garcia MD 200 [facility] [place] [address] 04/01/2025 11:00 AM EDT Office Visit Cardiology, [facility] [address] [facility] [place] [address] Daiana Anne CRNP 132 [place] [address] Scheduled Procedures Name Priority Associated Diagnoses Date/Ti [...] D LEVEL ONCE IN A LIFETIME-USE SMARTSET# [id number] Completed 01/12/2023, 06/03/2021, 08/16/2018 Influenza Vaccine (FLU [...] filedocumented as of this encounter Care Teams Records Management Technician Relationship Specialty Start Date End Date Zuleima Garcia MD [address] [place] [address] PCP - General Internal Medicine 08/28/24 documented as of this encounter
[2025-02-13 06:37] LABS: Hematocrit (blood only) 26.8 % (37.0-47.0); Hemoglobin 8.3 g/dl (12.0-16.0); Mean Corpuscular Hemoglobin 31.3 pg (25.0-34.0); Mean Corpuscular Volume 101.1 fL (80.0-100.0); Mean Platelet Volume 9.6 fL (9.4-12.4); Platelet Count 165 K/uL (130-400); RDW Coefficient of Variation 17.3 % (11.5-14.5); RDW Standard Deviation 62.7 fL (36.4-46.3); Red Blood Count 2.65 M/uL (4.20-5.40); White Blood Count 9.05 K/ul (4.8-10.8)
[2025-02-13 07:41] LABS: Calcium 8.6 mg/dl (8.6-10.3); Creatinine Clr Calc Pharmacy 29.4 ml/min; Potassium 5.1 mmol/L (3.5-5.1)
--- NOTE | 2025-02-13 08:05 | Electrocardiogram Report ---
Test Reason : Blood Pressure : */* mmHG Vent. Rate : 119 BPM Atrial Rate : * BPM P-R Int : * ms QRS Dur : 76 ms QT Int : 340 ms P-R-T Axes : * 52 52 degrees QTcB Int : 478 ms Atrial fibrillation with rapid ventricular response Nonspecific ST and T wave abnormality Abnormal ECG When compared with ECG of 12-Feb-2025 13:55, No significant change was found Confirmed by Montana Kincaid ([id number]) on 02/13/2025 8:04:54 AM Referred By: REFERRED SELF Confirmed By: Montana Kincaid
[2025-02-13] MEDS: FAMOTIDINE 20 MG TAB PO SCH (08:26)
[2025-02-13] MEDS: CYANOCOBALAMIN (B-12) 500 MCG TABLET PO SCH (08:27)
[2025-02-13] MEDS: FERROUS SULFATE 325 MG TAB PO SCH (08:27)
[2025-02-13] MEDS: METOPROLOL SUCC 25MG EXT REL TAB PO SCH (08:27)
[2025-02-13] MEDS: ADVANCED PROBIOTIC 625 MG CAPSULE PO SCH (08:27)
[2025-02-13] MEDS: PRENATAL VITAMIN 1 TAB PO SCH (08:27)
[2025-02-13] MEDS: ASPIRIN 81 MG CHEW PO SCH (08:45)
[2025-02-13] MEDS ORDERED: METOPROLOL TARTRATE 1 MG/ML VIAL IV PRN (08:47)
[2025-02-13] MEDS ORDERED: SODIUM CHLORIDE 0.9% 100 ML IV PRN (09:08)
[2025-02-13] MEDS: LEVALBUTEROL HCL 0.63 MG/3 ML NEB NEB PRN (09:27)
--- NOTE | 2025-02-13 09:50 | XRay Report ---
XR chest 1V portable CLINICAL HISTORY: CHF COMPARISON STUDY: Chest radiograph and chest CT T August 02, 2024. Chest radiograph February 12, 2025 FINDINGS: Cardiomegaly, mediastinal wires and prosthetic cardiac valve are noted. There is no pneumot horax. Pulmonary edema has slightly progressed. Large bilateral pleural effusions are noted with asso ciated airspace opacities. IMPRESSION: 1. Cardiomegaly with slight increase in pulmonary edema. 2. Large bilateral pleural effusions with associated airspace opacities which likely represent atelec tasis. ACT 112: Negative or not required by law. Electronically signed by: Tenzin Lopez M.D. 02/13/2025 9:48 AM
[2025-02-13] MEDS: FUROSEMIDE INJ 20 MG/2 ML VIAL IV ONE ×2 (10:12→21:22)
[2025-02-13] MEDS: HYDROmorphone INJ 0.5 MG/0.5 ML SYR IV ONE (11:27)
[2025-02-13] MEDS: METOPROLOL TARTRATE 1 MG/ML VIAL IV PRN (11:55)
--- NOTE | 2025-02-13 12:04 | Nephrology Consultation ---
Date of Consultation February 13, 2025 Assessment & Plan (1) DOMENICA (acute kidney injury): Creat is currently 1.4. She had DOMENICA during recent admisison at [facility] ( peak creat 3.3 on 02/06/25 but no dialysis--sec to ATN) and her diuretics were held. On discharge on 02/10/2025 creatinine was downtrending but still 1.8. before all this Creat baseline was 0.5. So current creat of 1.4 is not that concerning and still better than recent. So still recovering from recent ATN. But now has fluid overload--not surprising given recent DOMENICA/cardiac events and Diuretics held. Will diurese with higher dose of lasix. 20 mg did not seem to do much so will try 40 iv bid. Check BMP, mag and maintain normal lytes as much as possible No need of workup for DOMENICA--Dx is obvious . hgb is quite low at 8.2 so can consider PRBC (2) Acute CHF (congestive heart failure): Does have a lot of pl eff b/l--also consider Pulmonary for ? pleural tap. Will see how diuresis does first. (3) Atrial fibrillation with RVR: (4) Hyponatremia: Sec to Hypervolemia from CHF/Overload. Needs good diuresis to get this up. Plan time spent 63 mins. Discussed with Hospitalist and cards also. History of Present Illness Reason for Consultation: DOMENICA and Volume overload. Attending Physician: Pete Rodrigues MD History of Present Illness 74/F with complex recent cardiac problems as detailed here per H and P: has myxomatous mitral valve disease, severe mitral regurgitation s/p mitral valve repair, tricuspid valve repair, biatrial Maze procedure and left atrial appendage ligation 11/07/2017, HTN, dyslipidemia, history of QT prolongation, possible history PAF s/p left atrial appendage ligation, history of GI bleed 2020, s/p mitral valve replacement presented to ER with c/o bleeding from chest tube site today. Per chart review patient had hospitalization at [facility] 01/27/2025-02/10/2025 and had complicated hospital course. Underwent TMVR on 01/29/2025, following procedure had perivalvular leak and began having hemolysis requiring daily blood transfusions. Then underwent AVR/MVR on 02/02/[address] House and also had atrial septal defect closed. Post op developed a junctional rhythm required pacing. EP evaluated and recommended avoidance of negative chronotropic medications. Her metoprolol was ultimately resumed. He also developed thrombocytopenia and her subcu heparin and aspirin were held. Platelet levels improved and her aspirin and Eliquis was resumed. Patient also had DOMENICA ( peak creat 3.3 but no dialysis--sec to ATN) and her diuretics were held. On discharge on 02/10/2025 creatinine was downtrending but still 1.8. Upon discharge her home diuretics were not resumed. States today noticed bleeding that soaked through 3 dressing changes from her right chest wall at site of prior chest tube. Daughter reports patient was previously was on Lasix 20mg BID prior to recent surgery. States yesterday noticed BLE edema. Today with worsening BLE edema. Today feeling SOB. CT and CXR shows Severe b/l Pl eff. Since admission has got three separate doses of lasix 20 mg iv --so far no major response. Has lin 850 ml since admission. Creat is currently 1.4. DOMENICA ( peak creat 3.3 on 02/06/25 but no dialysis--sec to ATN) and her diuretics were held. On discharge on 02/10/2025 creatinine was downtrending but still 1.8. before all this Creat baseline was 0.5 Ros--See HPI. otherwise 12 Systems reviewed and negative PHYSICAL EXAMINATION: GENERAL: Awake, alert, frail and dyspneic NECK: Non-tender. Supple. RESPIRATORY: Increased respiratory effort. Diminished BD b/l. CARDIAC: Normal rate. Normal rhythm. Systolic murmur. edema b/l 2+ Moderate JVD. GI: Soft, non-distended. No tenderness to palpation. No rebound or guarding. No masses. MUSCULOSKELETAL: Atraumatic. Chest examination reveals healing sternal incision without signs of bleeding. Left low anterior chest tube drain site is CDI. Examination of the right lower chest tube drain site reveals some scant serosanguineous drainage. The back is kyphotic on inspection without obvious abnormality. There is no CVA tenderness to palpation. No joint edema. LOWER EXTREMITIES: b/l 2+ edema. NEURO: Normal sensorium. No sensory or motor deficits noted. SKIN: No rash or jaundice noted. Allergies Allergy/AdvReac Type Severity Reaction Status Date / Time famotidine AdvReac Severe Gastrointestinal Verified 02/12/25 16:07 Upset pantoprazole AdvReac Severe Gastrointestinal Verified 02/12/25 16:07 Upset prednisone AdvReac Severe Cramping Verified 02/12/25 16:07 of the Muscles Oyistlf-IJK-TeV Reductase AdvReac Intermediate MUSCLE Verified 02/12/25 16:07 Inhibitor PAIN AND CRAMPING Home Medications Medication Instructions Recorded Confirmed Type cyanocobalamin (vitamin B-12) 500 500 mcg PO QAM 08/10/21 02/12/25 History mcg tablet (Vitamin B-12) ferrous sulfate 325 mg (65 mg 325 mg PO QAM #30 tabs 08/13/21 02/12/25 Rx iron) tablet,delayed release apixaban 5 mg tablet (Eliquis) 5 mg PO BID #60 tabs 07/17/24 02/12/25 Rx L.acidop,casei,lactis,rham-B.lact,phani 1 cap PO DAILY #30 caps 08/04/24 02/12/25 Rx 625 mg (10 billion cell) capsule (Advanced Probiotic) acetaminophen 325 mg tablet 325 mg PO HS PRN WITH TYLENOL PM 02/12/25 02/12/25 History (Tylenol) FOR SLEEP/PAIN acetaminophen 325 mg tablet 975 mg PO Q8H PRN Pain 02/12/25 02/12/25 History (Tylenol) aspirin 81 mg chewable tablet 81 mg PO DAILY 02/12/25 02/12/25 History calcium 600 mg-D3 800 unit-mag 40 1 tab PO DAILY 02/12/25 02/12/25 History bg-bfff-xgfz-ekaterina-boron chew tablet (Caltrate 600-D Plus Minerals) diphenhydramine 25 1 tab PO HS PRN SLEEP/PAIN 02/12/25 02/12/25 History mg-acetaminophen 500 mg tablet (Tylenol PM Extra Strength) famotidine 20 mg tablet 20 mg PO DAILY 02/12/25 02/12/25 History magnesium sulfate 100 mg capsule 100 mg PO QPM 02/12/25 02/12/25 History metoprolol succinate 25 mg 25 mg PO QAM 02/12/25 02/12/25 History tablet,extended release 24 hr vit no.133-ferrous 1 tab PO QAM 02/12/25 02/12/25 History fumarate 28 mg-folic acid 800 mcg tablet () Patient History Medical History History of pulmonary edema Osteoarthritis Hypertension History of upper gastrointestinal bleeding 2020, no issues since Anemia LAWRENCE (dyspnea on exertion) with climbing stairs Dyslipidemia Congestive heart disease Paroxysmal atrial fibrillation History of anemia History of hyperlipidemia Surgical History History of left atrial appendage closure History of bilateral cataract extraction History of inguinal hernia repair right History of tooth extraction History of mitral valve repair History of tricuspid valve repair 2017 done in [place] Social History Smoking Status: Never smoker Second Hand Exposure: No; Do You Dip or Chew Tobacco: No; Hx Alcohol Use: No Hx Substance Use: No Preferred Language: German Communication Ability: Effective Director Of Dementia Operations Required: No Beliefs That Will Affect Care: None Current Living Situation: Family Current Living Situation Comment: lives with daughter Other Information That Helps Us Care for You: No Feels Safe at Home: Yes Safety Concerns: Feels Safe At This Time Assistive Devices: Cane and Walker Results & Data Vital Signs (Past 12 Hours) Vital Signs Temp Pulse Pulse Resp BP BP Pulse Ox 02/13/25 11:55 120 H 114/82 02/13/25 11:20 97 H 114/82 02/13/25 10:20 36.2 C L 102 H 16 103/74 97 02/13/25 09:27 93 H 20 99 02/13/25 08:15 02/13/25 07:14 36.7 C 121 H 20 135/77 99 02/13/25 07:10 117 H 02/13/25 04:21 37.0 C 127 H 16 118/74 98 O2 Del Method O2 Flow Rate 02/13/25 11:55 02/13/25 11:20 02/13/25 10:20 Nasal Cannula 1 02/13/25 09:27 Nasal Cannula 1 02/13/25 08:15 Nasal Cannula 1 02/13/25 07:14 Nasal Cannula 1 02/13/25 07:10 02/13/25 04:21 Nasal Cannula 2.0
[2025-02-13 12:25] LABS: iSTAT Arterial Blood Gas HCO3 26 meg/L (19-24); iSTAT Arterial Blood Gas pCO2 50 mmHg (35-46); iSTAT Arterial Blood Gas pH 7.33 (7.35-7.45); iSTAT Arterial Blood Gas pO2 70 mmHg (80-95); iSTAT Carbon Dioxide 28 mmol/L (24-31); iSTAT Hematocrit 24 % (37-47); iSTAT Hemoglobin 8.2 g/dl (12.0-16.0); iSTAT Potassium 4.7 mmol/L (3.3-5.0); iSTAT Sodium 130 mmol/L (135-144)
[2025-02-13] MEDS: FUROSEMIDE 40 MG/4 ML VIAL IV SCH (13:05)
[2025-02-13] MEDS: FUROSEMIDE 40 MG/4 ML VIAL IV ONE ×2 (13:12→14:36)
[2025-02-13] MEDS ORDERED: AMIODARONE IV BOLUS & DRIP IV STA (14:11)
[2025-02-13] MEDS ORDERED: 0.2 MICRON FILTER SET 1 EACH IV STA (14:11)
--- NOTE | 2025-02-13 14:22 | Cardiology Progress Note ---
Date of Service February 13, 2025 Assessment & Plan (1) Acute CHF (congestive heart failure): Plan: This is a 74 year old female who recently underwent a TMVR, complicated by hemolysis, then subsequent bioprosthetic MVR and AVR, now presenting with acute decompensated HF with mildly reduced LVEF in the setting of Afib with RVR. -remains volume overloaded -Needs aggressive IV diuresis; 80mg IV now, continue 40mg IV BID -LVEF is mildly reduced on TTE -scientology of NSR should improve function; Afib with RVR may be driving her HF (2) Atrial fibrillation with RVR: Plan: Needs scientology of NSR Give IV amiodarone bolus and start IV amiodarone gtt I provided 85 min of care to the patient in regards to management of acute HFrEF in the setting of Afib with RVR. Bryson Hernandez MD Admission and Anticipated Discharge Date Admission Date: February 12, 2025 Subjective (+) Shortness of breath at rest No chest pain. No N/V/METZ; afebrile. (+) PND and orthopnea. Review of Systems Review of Systems: All systems reviewed & are unremarkable except as noted in HPI & below Physical Exam Physical Exam: GEN: AAOx3; (+)dyspnea HEENT: (+) JVD CV: Irregularly Irregular; No M/R/G PULM: (+) decreased breath sounds b/l; No wheezes or rhonchi ABD: soft; NTND EXT: 1+ Lower extremity edema b/l extending to proximal thighs b/l NEURO: deferred. Results & Data Vital Signs (Past 12 Hours) Vital Signs Temp Pulse Pulse Resp BP BP Pulse Ox 02/13/25 13:58 114 H 02/13/25 13:03 108 H 135/74 02/13/25 11:55 120 H 114/82 02/13/25 11:20 97 H 114/82 02/13/25 10:20 36.2 C L 102 H 16 103/74 97 02/13/25 09:27 93 H 20 99 02/13/25 08:15 02/13/25 07:14 36.7 C 121 H 20 135/77 99 02/13/25 07:10 117 H 02/13/25 04:21 37.0 C 127 H 16 118/74 98 O2 Del Method O2 Flow Rate 02/13/25 13:58 02/13/25 13:03 02/13/25 11:55 02/13/25 11:20 02/13/25 10:20 Nasal Cannula 1 02/13/25 09:27 Nasal Cannula 1 02/13/25 08:15 Nasal Cannula 1 02/13/25 07:14 Nasal Cannula 1 02/13/25 07:10 02/13/25 04:21 Nasal Cannula 2.0 Laboratory Results Cardiac Enzymes 02/12/25 02/12/25 02/12/25 Range/Units 14:14 21:50 Unknown AST 30 (13-39) U/L Troponin I High Sens 261.7 H* 255.4 H* 272.6 H* (0-14) pg/ml B-Natriuretic Peptide 870 H (0-100) pg/ml Coagulation 02/12/25 Range/Units Unknown PT 11.6 (9.0-12.0) Seconds B-Natriuretic Peptide 870 H (0-100) pg/ml CBC 02/12/25 02/13/25 Range/Units 21:50 05:59 WBC 9.05 (4.8-10.8) K/ul RBC 2.65 L (4.20-5.40) M/uL Hgb 8.1 L 8.3 L (12.0-16.0) g/dl Hct 25.9 L 26.8 L (37.0-47.0) % Plt Count 165 (130-400) K/uL Comprehensive Metabolic Panel 02/12/25 02/13/25 Range/Units Unknown 05:59 Sodium 130 L 131 L (136-145) mmol/L Potassium 4.6 5.1 (3.5-5.1) mmol/L Chloride 98 100 (98-107) mmol/L Carbon Dioxide 28 29 (21-32) mmol/L BUN 28 H 28 H (6-23) mg/dl Creatinine 1.39 H 1.47 H (0.6-1.2) mg/dl Glucose 161 H 108 H (70-99(Fasting)) mg/dl Calcium 9.0 8.6 (8.6-10.3) mg/dl AST 30 (13-39) U/L ALT 10 (7-52) U/L Alkaline Phosphatase 96 (34-104) U/L Total Protein 7.6 (6.0-8.3) gm/dl Albumin 3.5 (3.4-5.0) gm/dl Intake and Output 02/12/25 02/13/25 02/13/25 22:59 06:59 14:59 Intake Total 690 / 1030 340 / 1030 Output Total 650 / 850 200 / 850 352 / 352 Balance 40 / 180 140 / 180 -352 / -352 Intake: Oral 690 / 1030 340 / 1030 Output: Urine 650 / 850 200 / 850 Urine Amount (Catheter) 350 / 350 Reyna/Indwelling 350 / 350 # Bowel Movements 2 / Other: Weight 60.963 kg 61.2 kg Weight Measurement Method Built in Bedscale Standing Scale Medications Administered Home Medications Medication Instructions Recorded Confirmed Last Taken cyanocobalamin (vitamin B-12) 500 500 mcg PO QAM 08/10/21 02/12/25 02/11/25 mcg tablet (Vitamin B-12) ferrous sulfate 325 mg (65 mg 325 mg PO QAM #30 tabs 08/13/21 02/12/25 02/11/25 iron) tablet,delayed release apixaban 5 mg tablet (Eliquis) 5 mg PO BID #60 tabs 07/17/24 02/12/25 02/12/25 08:00 L.acidop,casei,lactis,rham-B.lact,phani 1 cap PO DAILY #30 caps 08/04/24 02/12/25 02/11/25 625 mg (10 billion cell) capsule (Advanced Probiotic) acetaminophen 325 mg tablet 325 mg PO HS PRN WITH TYLENOL PM 02/12/25 02/12/25 Unknown (Tylenol) FOR SLEEP/PAIN acetaminophen 325 mg tablet 975 mg PO Q8H PRN Pain 02/12/25 02/12/25 Unknown (Tylenol) aspirin 81 mg chewable tablet 81 mg PO DAILY 02/12/25 02/12/25 02/12/25 calcium 600 mg-D3 800 unit-mag 40 1 tab PO DAILY 02/12/25 02/12/25 02/11/25 do-jqaf-cigm-ekaterina-boron chew tablet (Caltrate 600-D Plus Minerals) diphenhydramine 25 1 tab PO HS PRN SLEEP/PAIN 02/12/25 02/12/25 Unknown mg-acetaminophen 500 mg tablet (Tylenol PM Extra Strength) famotidine 20 mg tablet 20 mg PO DAILY 02/12/25 02/12/25 Unknown magnesium sulfate 100 mg capsule 100 mg PO QPM 02/12/25 02/12/25 02/11/25 metoprolol succinate 25 mg 25 mg PO QAM 02/12/25 02/12/25 02/12/25 tablet,extended release 24 hr vit no.133-ferrous 1 tab PO QAM 02/12/25 02/12/25 02/11/25 fumarate 28 mg-folic acid 800 mcg tablet () Active Medications Generic Name Dose Route Start Last Admin Trade Name Freq PRN Reason Stop Dose Admin Acetaminophen 1,000 mg 02/12/25 18:12 02/13/25 13:13 Acetaminophen 500 Mg Tab PO 03/14/25 18:11 Not Given Q8H JAIME Apixaban 5 mg 02/12/25 21:00 02/13/25 08:45 Apixaban 5 Mg Tablet PO 03/14/25 20:59 5 mg BID JAIME Administration Aspirin 81 mg 02/13/25 09:00 02/13/25 08:45 Aspirin 81 Mg Chew PO 03/15/25 08:59 81 mg DAILY JAIME Administration Cyanocobalamin 500 mcg 02/13/25 09:00 02/13/25 08:27 Cyanocobalamin (B-12) 500 Mcg Tablet PO 03/15/25 08:59 500 mcg QAM JAIME Administration Famotidine 20 mg 02/13/25 09:00 02/13/25 08:26 Famotidine 20 Mg Tab PO 03/15/25 08:59 Not Given DAILY JAIME Ferrous Sulfate 325 mg 02/13/25 09:00 02/13/25 08:27 Ferrous Sulfate 325 Mg Tab PO 03/15/25 08:59 325 mg QAM JAIME Administration Furosemide 40 mg 02/13/25 12:30 02/13/25 13:05 Furosemide 40 Mg/4 Ml Vial IV 03/15/25 12:29 40 mg Q12 JAIME Administration Lactobacillus Acidophilus 625 mg 02/13/25 09:00 02/13/25 08:27 Advanced Probiotic 625 Mg Capsule PO 03/15/25 08:59 625 mg DAILY JAIME Administration Levalbuterol HCl 0.63 mg 02/13/25 09:15 02/13/25 09:27 Levalbuterol Hcl 0.63 Mg/3 Ml Neb NEB 03/15/25 09:14 0.63 mg Q6H PRN Administration Shortness Of Breath Or Wheezing Protocol Melatonin 3 mg 02/12/25 20:46 02/12/25 21:02 Melatonin 3 Mg Tab PO 03/14/25 20:45 3 mg HS PRN Administration Sleep Metoprolol Succinate 25 mg 02/13/25 09:00 02/13/25 08:27 Metoprolol Succ 25mg Ext Rel Tab PO 03/15/25 08:59 25 mg QAM JAIME Administration Metoprolol Tartrate 2.5 mg 02/13/25 09:06 02/13/25 11:55 Metoprolol Tartrate 1 Mg/Ml Vial IV 03/15/25 11:59 2.5 mg Q6 PRN Administration Tachycardia HR>110 Prenat Multivit/[place]/Iron/Folic Ac 1 tab 02/13/25 09:00 02/13/25 08:27 Vitamin 1 Tab PO 03/15/25 08:59 1 tab QAM JAIME Administration
[2025-02-13 14:32] LABS: Hematocrit (blood only) 24.9 % (37.0-47.0); Hemoglobin 7.7 g/dl (12.0-16.0)
[2025-02-13] MEDS: AMIODARONE / D5W 150 MG/100 ML BAG IV STA (14:35)
[2025-02-13] MEDS: AMIODARONE / D5W 360 MG/200 ML BAG IV ONE (14:47)
[2025-02-13] MEDS: STAT IV Infusion **Titration per Protocol STA (15:04)
--- NOTE | 2025-02-13 15:32 | Hospitalist Progress Note ---
Date of Service February 13, 2025 Assessment & Plan (1) Volume overload: (2) S/P mitral valve replacement: (3) Paroxysmal atrial fibrillation: (4) History of anemia: (5) History of hyperlipidemia: Plan: Patient is 74 year old female with PMH myxomatous mitral valve disease, severe mitral regurgitation s/p mitral valve repair, tricuspid valve repair, biatrial Maze procedure and left atrial appendage ligation 11/07/2017, HTN, dyslipidemia, history of QT prolongation, possible history PAF s/p left atrial appendage ligation, history of GI bleed 2020, s/p mitral valve replacement presented to ER with c/o bleeding from chest tube site today as well as BLE edema and SOB x 1 day. Acute heart failure with mildly reduced EF--POA Valvular heart disease Pulmonary edema, pleural effusion secondary to above H/O myxomatous mitral valve disease H/O Biatrial maze procedure and left atrial appendage ligation S/P TMVR on 01/29/2025, following procedure had perivalvular leak and began having hemolysis requiring daily blood transfusions. Then underwent AVR/MVR on 02/02/[address] House and also had atrial septal defect closed. --CXR:Cardiomegaly with slight increase in pulmonary edema. Large bilateral pleural effusions with associated airspace opacities which likely represent atelectasis. --BNP: 870 --Limited echo: EF 40 to 45%. Mild global hypokinesis of left ventricle. Severe concentric LVH. Bioprosthetic arctic valve, without stenosis or regurgitation. Bioprosthetic mitral valve with normal function. No significant mitral regurgitation or stenosis. Continue IV Lasix 40 mg twice a day Monitor volume status, I's and O's, daily weight, electrolytes and renal function Appreciate cardiology, nephrology input Continue metoprolol Continue supplemental oxygen as needed A-fib RVR Echo as above Normal TSH Started on amiodarone drip Continue metoprolol On Eliquis for anticoagulation Appreciate cardiology input Elevated troponin Likely demand ischemia secondary to above H/O statin intolerance Patient denies any chest pain Echo pending Continue aspirin, metoprolol Acute kidney injury Creatinine 1.4 today Creatinine peaked at 3.3 on 02/06/2025 while at [facility]. Cr on 02/10/2025 was 1.8 Monitor renal functions Appreciate nephrology input Avoid nephrotoxic agents as able Chronic hyponatremia Volume overload likely contributing as well Sodium 131 today Monitor Bleeding incision site from prior chest tube Currently chest incisions with dry dressings in place Monitor for any bleeding issues Anemia--likely multifactorial H/O GI bleed Recent required PRBC transfusions at [facility] [place] Hgb: 10.3. Was 10 on discharge on 02/10/2025, had required PRBC transfusion at [facility] [place]. Monitor H&H and transfuse as needed Blood consent obtained Anemia workup pending Continue iron, B12 supplements DVT Px Eliquis Code Status Full Code Admission and Anticipated Discharge Date Admission Date: February 12, 2025 Subjective Patient is seen and examined at bedside States having significant shortness of breath Cough slowly improving Denies any chest pain, nausea, dizziness Reports right lower quadrant abdominal discomfort Denies any bleeding issues Saturating well on 1 L supplemental oxygen Discussed with patient's family at bedside Also discussed with nephrology and cardiology today Review of Systems Review of Systems: All systems reviewed & are unremarkable except as noted in Subjective Physical Exam Physical Exam: Physical Exam: Vitals signs as noted above General Appearance:Thin, frail, ill appearing, mild respiratory distress Head: normocephalic, Atraumatic Eyes: normal inspection, EOMI Neck: supple, Trachea midline Respiratory/Chest: Decreased breath sounds, basal crackles, mild accessory muscle use Cardiovascular: Irregularly irregular, tachycardia, S1, S2, No murmur Abdomen/GI:Soft, non tender, Bowel sounds present Extremities/Musculoskeletal:normal inspection, 1+ pedal edema Neurologic/Psych:AAOX3, grossly no focal neurological deficits Skin: normal color, warm, healing surgical scar on chest Results & Data Results & Data Vital Signs (Past 12 Hours) Vital Signs Temp Pulse Pulse Resp BP BP Pulse Ox 02/13/25 14:30 112 H 02/13/25 13:58 114 H 02/13/25 13:03 108 H 135/74 02/13/25 11:55 120 H 114/82 02/13/25 11:20 97 H 114/82 02/13/25 10:20 36.2 C L 102 H 16 103/74 97 02/13/25 09:27 93 H 20 99 02/13/25 08:15 02/13/25 07:14 36.7 C 121 H 20 135/77 99 02/13/25 07:10 117 H 02/13/25 04:21 37.0 C 127 H 16 118/74 98 O2 Del Method O2 Flow Rate 02/13/25 14:30 02/13/25 13:58 02/13/25 13:03 02/13/25 11:55 02/13/25 11:20 02/13/25 10:20 Nasal Cannula 1 02/13/25 09:27 Nasal Cannula 1 02/13/25 08:15 Nasal Cannula 1 02/13/25 07:14 Nasal Cannula 1 02/13/25 07:10 02/13/25 04:21 Nasal Cannula 2.0 Laboratory Results Short CBC 02/12/25 02/13/25 02/13/25 Range/Units 21:50 05:59 14:12 WBC 9.05 (4.8-10.8) K/ul Hgb 8.1 L 8.3 L 7.7 L (12.0-16.0) g/dl Hct 25.9 L 26.8 L 24.9 L (37.0-47.0) % Plt Count 165 (130-400) K/uL BMP 02/13/25 05:59 Sodium 131 L Potassium 5.1 Chloride 100 Carbon Dioxide 29 BUN 28 H Creatinine 1.47 H Glucose 108 H Calcium 8.6 Urine 02/12/25 Range/Units 14:40 Urine Color Yellow Urine Appearance Clear (Clear) Urine pH 6.0 (4.5-7.5) Ur Specific [place] 1.008 (1.000-1.030) Urine Protein 1+ H (Negative) Urine Glucose (UA) Negative (Negative)
--- NOTE | 2025-02-13 16:19 | Ultrasound Report ---
Ultrasound arterial lower extremity right Comparison: None Technique: Grayscale and color and spectral Doppler ultrasound of the arteries of the right groin Findings: Patent right common femoral and proximal superficial femoral artery with normal waveforms. In the right groin soft tissues, there is an anechoic collection measuring 1.3 x 1.0 x 0.9 cm, containing a small volume of debris. No color Doppler flow to this structure. No visualized aneurysm or pseudoaneurysm. No other soft tissue abnormality of the lower abdominal wall. Impression: Patent right common femoral and proximal superficial femoral artery. There is a small, anechoic collection with debris measuring 1.3 cm in the right groin without vascular flow. This may represent a cyst or old evolving hematoma. Electronically signed by Barrington Boyd 02-13-2025 4:19 PM
[2025-02-13] MEDS: POLYETHYLENE (MIRALAX) 17 GM PACK PO PRN (17:57)
[2025-02-13] MEDS: DOCUSATE SODIUM 100 MG CAP PO SCH (18:01)
[2025-02-13] MEDS ORDERED: HYDROCORTISONE HC 2.5% CRM 30GM TUBE EXT PRN (18:26)
--- NOTE | 2025-02-13 19:08 | Communication Note ---
Date of Service: February 13, 2025 Notified by primary hospitalist and nursing staff that pt was having an increased work of breathing. pt with large bilateral pleural effusions currently being diuresed with output of ~500ml today. On exam, daughter at bedside, pt with neck and abdominal retractions on 2L of oxygen. Difficulty talking. Breath sounds decreased on exam, no wheezing, NC in nares, irregular HR at the time of exam Stat XRAY chest, VBG, CBC, BMP ordered. On Eliquis, less concern for PE. pt also with kidney disease will defer on contrast at this time, CT chest WITHOUT contrast ordered for further evaluation. Bipap ordered by primary hospitalist, continue with assistance of respiratory team Pulmonary consulted for possible thoracentesis, noted pt with complicated cardiac hx on Eliquis at this time Case signed out to joel, primary hospitalist updated as well
[2025-02-13] MEDS: AMIODARONE / D5W 360 MG/200 ML BAG IV SCH (19:46)
[2025-02-13 19:50] LABS: Base Excess VBG -0.3 mEq/L; HCO3 VBG 29 mmol/L; Oxygen Saturation VBG < 60.0 %; PCO2 VBG 65 mmHg (38-50); PO2 VBG 22 mmHg; pH VBG 7.25 (7.36-7.41)
[2025-02-13 19:56] LABS: Basophils # (auto) 0.03 K/uL (0.00-0.20); Basophils % (auto) 0.3 %; Eosinophils # (auto) 0.07 K/uL (0.00-0.50); Eosinophils % (auto) 0.6 %; Hematocrit (blood only) 24.9 % (37.0-47.0); Hemoglobin 7.7 g/dl (12.0-16.0); Immature Granulocytes # (auto) 0.12 K/uL (0.01-0.20); Lymphocytes # (auto) 0.49 K/uL (1.20-3.40); Lymphocytes % (auto) 4.2 %; Mean Corpuscular Hemoglobin 31.7 pg (25.0-34.0); Mean Corpuscular Hgb Conc 30.9 g/dL (32.0-36.0); Mean Corpuscular Volume 102.5 fL (80.0-100.0); Mean Platelet Volume 9.4 fL (9.4-12.4); Monocytes # (auto) 0.72 K/uL (0.11-0.59); Monocytes % (auto) 6.2 %; Neutrophils # (auto) 10.19 K/uL (1.40-6.50); Neutrophils % (auto) 87.7 %; Platelet Count 189 K/uL (130-400); RDW Coefficient of Variation 17.1 % (11.5-14.5); RDW Standard Deviation 62.1 fL (36.4-46.3); Red Blood Count 2.43 M/uL (4.20-5.40); White Blood Count 11.62 K/ul (4.8-10.8)
[2025-02-13 20:12] LABS: BUN Creatinine Ratio 18.5 (10-20); Calcium 8.8 mg/dl (8.6-10.3); Creatinine Clr Calc Pharmacy 26.7 ml/min; Potassium 5.2 mmol/L (3.5-5.1)
[2025-02-13 20:16] LABS: RBC Morphology Unremarkable
--- NOTE | 2025-02-13 20:23 | XRay Report ---
EXAM: Portable AP chest radiograph TECHNIQUE: AP portable radiograph of the chest was obtained. INDICATION: Shortness of breath Comparison: Chest radiograph August 02, 2024. FINDINGS: LINES and TUBES: None CARDIOVASCULAR: Cardiac silhouette is largely obscured by surrounding pleural-parenchymal process but is again significantly enlarged in size. Prosthetic cardiac valves. LUNGS/PLEURA: Large pleural fluids, new to significantly increased from previous examination. Bibasilar pulmonary densities likely represent atelectasis. No discernible pneumothorax. OSSEOUS/OTHER: No displaced acute osseous process identified. IMPRESSION: Decompensated CHF with new to significantly increased large pleural fluids bilaterally and unchanged severe cardiac silhouette enlargement. Superimposed airspace disease cannot be excluded. Electronically signed by Mauro Johnson 02-13-2025 8:23 PM
[2025-02-13] MEDS: ACETAMINOPHEN 1,000 MG/100 ML VIAL IV PRN (21:38)
[2025-02-14 00:01] VITALS: TEMP 97.3
[2025-02-14 00:29] LABS: Base Excess VBG -2.6 mEq/L; HCO3 VBG 27 mmol/L; Oxygen Saturation VBG < 60.0 %; PCO2 VBG 69 mmHg (38-50); PO2 VBG 20 mmHg
[2025-02-14] MEDS ORDERED: MELATONIN 3 MG TAB PO PRN (00:41)
[2025-02-14] MEDS: MELATONIN 3 MG TAB PO STA (01:00)
--- NOTE | 2025-02-14 01:34 | CT Scan Report ---
Exam(s): CT CHEST Without Contrast EXAM: CT Chest Without Intravenous Contrast CLINICAL HISTORY: worsening hypoxia, SOB. TECHNIQUE: Axial computed tomography images of the chest without intravenous contrast. CTDI is 12 mGy and DLP is 324 mGy-cm. Automated exposure control was utilized for the study. A dose lowering technique was utilized adhering to the principles of ALARA. COMPARISON: CT Chest 08/02/2024, CXR 02-13-2025. FINDINGS: Limited by lack of contrast material. Lungs: Extensive probable compressive atelectasis in bilateral lower lobes independent left upper lobe. Moderate atelectasis in the right middle and upper lobe. No definite CHF. Pleural space: Large bilateral posterior layering pleural effusions, right greater than left. No pneumothorax. Heart: Moderate cardiomegaly. No significant pericardial effusion. No significant coronary artery calcifications. Bones/joints: Status post sternotomy. Degenerative changes of the spine. No acute fracture. Soft tissues: Unremarkable. Vasculature: Unremarkable. No thoracic aortic aneurysm. IMPRESSION: Large bilateral pleural effusions with compressive atelectasis. Otherwise no change. Electronically signed by: Jonathan Selby M.D. 02/14/25 01:33 AM
[2025-02-14 01:58] LABS: Base Excess VBG -0.2 mEq/L; HCO3 VBG 26 mmol/L; Oxygen Saturation VBG 95.9 %; PCO2 VBG 47 mmHg (38-50); PO2 VBG 66 mmHg; pH VBG 7.35 (7.36-7.41)
[2025-02-14 06:50] LABS: Base Excess VBG -1.6 mEq/L; HCO3 VBG 27 mmol/L; Oxygen Saturation VBG 69.5 %; PCO2 VBG 73 mmHg (38-50); PO2 VBG 42 mmHg; pH VBG 7.18 (7.36-7.41)
[2025-02-14 06:57] LABS: Hematocrit (blood only) 24.9 % (37.0-47.0); Hemoglobin 7.6 g/dl (12.0-16.0); Mean Corpuscular Hemoglobin 31.4 pg (25.0-34.0); Mean Corpuscular Hgb Conc 30.5 g/dL (32.0-36.0); Mean Corpuscular Volume 102.9 fL (80.0-100.0); Platelet Count 239 K/uL (130-400); RDW Coefficient of Variation 16.9 % (11.5-14.5); RDW Standard Deviation 63.8 fL (36.4-46.3); Red Blood Count 2.42 M/uL (4.20-5.40); White Blood Count 14.38 K/ul (4.8-10.8)
[2025-02-14 07:12] LABS: BUN Creatinine Ratio 19.4 (10-20); Calcium 8.9 mg/dl (8.6-10.3); Creatinine Clr Calc Pharmacy 24.7 ml/min
[2025-02-14 07:32] LABS: Ferritin 1199.2 ng/ml (8-388)
[2025-02-14 07:35] LABS: Base Excess VBG 0.5 mEq/L; HCO3 VBG 28 mmol/L; PCO2 VBG 59 mmHg (38-50); PO2 VBG < 20 mmHg; pH VBG 7.29 (7.36-7.41)
[2025-02-14 07:37] LABS: Folate (Folic Acid),Ser orPlas > 22.30 ng/ml (>5.38)
[2025-02-14 07:38] LABS: Vitamin B12 > 1500 pg/ml (180-914)
--- NOTE | 2025-02-14 07:48 | Hospitalist Progress Note ---
Date of Service February 14, 2025 Assessment & Plan (1) Volume overload: (2) S/P mitral valve replacement: (3) Paroxysmal atrial fibrillation: (4) History of anemia: (5) History of hyperlipidemia: Plan: Patient is 74 year old female with PMH myxomatous mitral valve disease, severe mitral regurgitation s/p mitral valve repair, tricuspid valve repair, biatrial Maze procedure and left atrial appendage ligation 11/07/2017, HTN, dyslipidemia, history of QT prolongation, possible history PAF s/p left atrial appendage ligation, history of GI bleed 2020, s/p mitral valve replacement presented to ER with c/o bleeding from chest tube site today as well as BLE edema and SOB x 1 day. Acute on chronic respiratory failure with hypoxia and hypercarbia Acute heart failure with mildly reduced EF--POA Valvular heart disease Pulmonary edema, pleural effusion secondary to above H/O myxomatous mitral valve disease H/O Biatrial maze procedure and left atrial appendage ligation S/P TMVR on 01/29/2025, following procedure had perivalvular leak and began having hemolysis requiring daily blood transfusions. Then underwent AVR/MVR on 02/02/[address] House and also had atrial septal defect closed. --CXR:Cardiomegaly with slight increase in pulmonary edema. Large bilateral pleural effusions with associated airspace opacities which likely represent atelectasis. --BNP: 870 --Limited echo: EF 40 to 45%. Mild global hypokinesis of left ventricle. S evere concentric LVH. Bioprosthetic arctic valve, without stenosis or regurgitation. Bioprosthetic mitral valve with normal function. No significant mitral regurgitation or stenosis. Continue IV Lasix 40 mg twice a day>> patient was started on Lasix drip and metolazone Monitor volume status, I's and O's, daily weight, electrolytes and renal function Appreciate cardiology, nephrology input Continue metoprolol Patient's respiratory status deteriorated overnight and CT suggestive of significant bilateral pleural effusion Patient was placed on BiPAP overnight requiring 100% FiO2 Continue BiPAP for now Appreciate critical care input: given worsening patient's condition and comorbidities--failure of conservative management, need for dialysis/continues renal replacement therapy, possible need for bilateral thoracentesis and CT surgery evaluation patient is thought to be best served at a tertiary care facility. at [facility] accepted the patient for further care Patient will be transferred to [facility] for further management Patient and patient's family understands and agrees with the plan. A-fib RVR Echo as above Normal TSH Started on amiodarone drip Continue metoprolol On Eliquis for anticoagulation Appreciate cardiology input Elevated troponin Likely demand ischemia secondary to above H/O statin intolerance Patient denies any chest pain Echo pending Continue aspirin, metoprolol Acute kidney injury Creatinine 1.7 today Creatinine peaked at 3.3 on 02/06/2025 while at [facility]. Cr on 02/10/2025 was 1.8 Monitor renal functions Appreciate nephrology input Avoid nephrotoxic agents as able Hyperkalemia Likely due to renal failure Resolved Monitor electrolytes Chronic hyponatremia Volume overload likely contributing as well Sodium 131 today Monitor Bleeding incision site from prior chest tube Currently chest incisions with dry dressings in place Monitor for any bleeding issues Anemia--likely multifactorial H/O GI bleed Recent required PRBC transfusions at [facility] Hgb:Was 10 on discharge on 02/10/2025, had required PRBC transfusion at [facility]. Monitor H&H and transfuse as needed Blood consent obtained Anemia workup reviewed Hemoglobin 7.6 today Consider transfusing 1 unit PRBC if volume status permits DVT Px Eliquis Code Status Full Code Disposition [facility] Admission and Anticipated Discharge Date Admission Date: February 12, 2025 Subjective Patient is seen and examined at bedside States having persistent shortness of breath despite being on BiPAP with 100% FiO2 Discussed with critical care and nephrology today Given worsening respiratory status, patient was transferred to ICU for further management Patient denied any chest pain, nausea, vomiting, abdominal pain Updated patient's family at bedside Review of Systems Review of Systems: All systems reviewed & are unremarkable except as noted in Subjective Physical Exam Physical Exam: Physical Exam: Vitals signs as noted above General Appearance:Thin, frail, ill appearing, mild respiratory distress Head: normocephalic, Atraumatic Eyes: normal inspection, EOMI Neck: supple, Trachea midline Respiratory/Chest: Decreased breath sounds, basal crackles, mild accessory muscle use Cardiovascular: Irregularly irregular, tachycardia, S1, S2, No murmur Abdomen/GI:Soft, non tender, Bowel sounds present Extremities/Musculoskeletal:normal inspection, 1+ pedal edema Neurologic/Psych:AAOX3, grossly no focal neurological deficits Skin: normal color, warm, healing surgical scar on chest Results & Data Results & Data Vital Signs (Past 12 Hours) Vital Signs Temp Pulse Pulse Resp BP BP Pulse Ox 02/14/25 04:42 66 20 98 02/14/25 03:26 36.3 C L 70 20 113/68 100 02/14/25 00:50 113 H 23 95 02/14/25 00:01 36.3 C L 71 20 114/66 98 02/13/25 21:58 133/84 02/13/25 21:40 99 H 02/13/25 21:24 103/71 02/13/25 20:54 107 H 24 96 02/13/25 20:31 36.2 C L 96 H 131/94 98 O2 Del Method O2 Flow Rate 02/14/25 04:42 4 02/14/25 03:26 BiPAP 02/14/25 00:50 4 02/14/25 00:01 BiPAP 02/13/25 21:58 02/13/25 21:40 02/13/25 21:24 02/13/25 20:54 4 02/13/25 20:31 Nasal Cannula Laboratory Results Short CBC 02/13/25 02/14/25 Range/Units 19:32 06:27 WBC 11.62 H 14.38 H (4.8-10.8) K/ul Hgb 7.7 L 7.6 L (12.0-16.0) g/dl Hct 24.9 L 24.9 L (37.0-47.0) % Plt Count 189 239 (130-400) K/uL BMP 02/13/25 02/14/25 19:32 06:27 Sodium 132 L 131 L Potassium 5.2 H 5.0 Chloride 98 96 L Carbon Dioxide 30 30 BUN 30 H 34 H Creatinine 1.62 H 1.75 H Glucose 152 H 157 H Calcium 8.8 8.9
--- NOTE | 2025-02-14 08:00 | XRay Report ---
EXAM: XR chest 1V portable CLINICAL HISTORY: Congestive Heart Failure. TECHNIQUE: An X-ray image of the chest is obtained in AP projection. COMPARISON: 02/13/2025 FINDINGS: Pulmonary Parenchyma: Redemonstration of Bibasilar atelectatic changes. Redemonstration of bilateral moderate pleural effusion. Heart and Mediastinum: Heart size appears apparently enlarged. No mediastinal widening or masses. No hilar or mediastinal lymphadenopathy. Midline sternotomy sutures Seen status post intervention. Bony Thorax: The bony thorax appears intact without fractures or deformities. Degenerative changes seen in the visualized skeleton. Soft Tissues: Soft tissues overlying the chest wall are unremarkable. IMPRESSION: 1. Imaging appearances are likely due to pulmonary edema with bilateral moderate pleural effusion and underlying basal collapse/ consolidation. 2. No interval changes. Electronically signed by Ezequiel Amado 02-14-2025 07:59 AM
[2025-02-14 08:27] VITALS: RESP 22; O2SAT 97
--- NOTE | 2025-02-14 08:47 | Critical Care Consultation ---
Date of Consultation February 14, 2025 Assessment & Plan (1) Acute respiratory failure with hypoxia and hypercapnia: Reason Critically Ill: 74-year-old female with acute hypoxic and hypercapnic respiratory failure secondary to volume overload recovering ATN/acute renal failure from recent hemolysis complicating mitral and aortic valve replacement with periprosthetic valvular leak PLAN: Resp: Acute hypoxic respiratory failure -Noninvasive mechanical ventilation: This is temporizing as we are attempting to achieve some form of volume control Bilateral pleural effusions -Consider bilateral thoracentesis as a temporizing procedure -Increased risk as patient anticoagulated with Eliquis CV: Acute congestive heart failure -Aggressive diuresis History atrial fibrillation -On amiodarone infusion: To facilitate episcopal of normal sinus rhythm -Appears to be in rate controlled atrial fibrillation on bedside monitor -Could consider electrical cardioversion: However significant risks given additional multisystem organ failure -Appreciate cardiology input Recent mitral and aortic valve replacement -Reduced EF on transthoracic echocardiography Fluids/Renal: Acute kidney injury: Current creatinine 1.7 increased from 1.4, peak creatinine 3.3 on 02/06: Creatinine at discharge was 1.8, baseline creatinine 0.5 -Reviewed nephrology consultation, discussed management giving 100 mg Lasix starting infusion and metolazone Hyponatremia secondary to volume overload: Mildly worsening -Patient still has positive fluid balance despite high-dose diuretics ID: Afebrile GI/Nutrition: Patient previously written for lacto oval vegetarian diet with soft bite-size texture -N.p.o. while requiring noninvasive mechanical ventilation Heme: Anemia -Appears prior baseline hemoglobin was around 10, currently 7.6 DVT prophylaxis: Systemic anticoagulation with apixaban, unclear when last dose occurred Endocrine: ICU hyperglycemia protocol Vascular access: Patient consented for advanced vascular access Code Status: Full code Disposition: ICU Discussed with treatment team as well as [facility], [facility] does not feel patient requires ICU level care given VBG improvement on noninvasive mechanical ventilation. Accepting: . Will fly to minimize time out of hospital. In discussion with nephrology we do not have availability of dialysis today. Patient has worsened despite aggressive medical management. Considered bilateral thoracentesis however this is medically temporizing and patient still has not had an adequate renal response to diuretics. Feel it is most prudent to transfer to facility that has both HD or continuous renal replacement therapy availability as we have neither. (2) Hyponatremia: (3) DOMENICA (acute kidney injury): (4) S/P mitral valve replacement: (5) Bilateral edema of lower extremity: (6) Anemia: (7) Acute CHF (congestive heart failure): (8) Hyperglycemia: (9) Chronic anemia: (10) Atrial fibrillation with RVR: Supervising Physician Co-Signing Physician Notes I have personally spent 70 minutes of critical care time in the direct management of this patient. This is a life/limb threatening event. This includes time spent evaluating patient, direct bedside care, chart review, placing orders, interpretation of diagnostic studies, discussion with consultants, patient, and/or family members regarding treatment decisions, as well as other required patient management activities. This time is exclusive of all separately billable procedures, and teaching time and separate from and in addition to any other critical care service time. History of Present Illness Reason for Consultation: Acute hypoxic respiratory failure in the setting of presumptive Attending Physician: Pete Rodrigues MD History of Present Illness Patient is a 74-year-old female who was recently discharged from [facility], 3 days ago, who recently underwent mitral and aortic valve replacement via transvenous approach which was complicated by perivalvular leak and subsequent hemolysis leading to acute kidney injury. Patient has been seen by cardiology and nephrology and started on aggressive diuretics. Patient has clinically worsened with hypercapnic and hypoxic respiratory failure requiring noninvasive mechanical ventilation. I have been asked to evaluate the patient. Per medical records there was initially a discussion with cardiothoracic surgery at [facility] and patient did not require transfer if cardiology was able to medically manage which was felt to be a viable option. Last 24 hours patient has not had adequate urine output and clinically worsened. In discussion with nephrology we have limited availability for temporary hemodialysis. Will engage [facility] again about possible transfer. Allergies Allergy/AdvReac Type Severity Reaction Status Date / Time famotidine AdvReac Severe Gastrointestinal Verified 02/12/25 16:07 Upset pantoprazole AdvReac Severe Gastrointestinal Verified 02/12/25 16:07 Upset prednisone AdvReac Severe Cramping Verified 02/12/25 16:07 of the Muscles Ffaecfe-SOH-UeU Reductase AdvReac Intermediate MUSCLE Verified 02/12/25 16:07 Inhibitor PAIN AND CRAMPING Home Medications Medication Instructions Recorded Confirmed Type cyanocobalamin (vitamin B-12) 500 500 mcg PO QAM 08/10/21 02/12/25 History mcg tablet (Vitamin B-12) ferrous sulfate 325 mg (65 mg 325 mg PO QAM #30 tabs 08/13/21 02/12/25 Rx iron) tablet,delayed release apixaban 5 mg tablet (Eliquis) 5 mg PO BID #60 tabs 07/17/24 02/12/25 Rx L.acidop,casei,lactis,rham-B.lact,phani 1 cap PO DAILY #30 caps 08/04/24 02/12/25 Rx 625 mg (10 billion cell) capsule (Advanced Probiotic) acetaminophen 325 mg tablet 325 mg PO HS PRN WITH TYLENOL PM 02/12/25 02/12/25 History (Tylenol) FOR SLEEP/PAIN acetaminophen 325 mg tablet 975 mg PO Q8H PRN Pain 02/12/25 02/12/25 History (Tylenol) aspirin 81 mg chewable tablet 81 mg PO DAILY 02/12/25 02/12/25 History calcium 600 mg-D3 800 unit-mag 40 1 tab PO DAILY 02/12/25 02/12/25 History lj-ceex-xumz-ekaterina-boron chew tablet (Caltrate 600-D Plus Minerals) diphenhydramine 25 1 tab PO HS PRN SLEEP/PAIN 02/12/25 02/12/25 History mg-acetaminophen 500 mg tablet (Tylenol PM Extra Strength) famotidine 20 mg tablet 20 mg PO DAILY 02/12/25 02/12/25 History magnesium sulfate 100 mg capsule 100 mg PO QPM 02/12/25 02/12/25 History metoprolol succinate 25 mg 25 mg PO QAM 02/12/25 02/12/25 History tablet,extended release 24 hr vit no.133-ferrous 1 tab PO QAM 02/12/25 02/12/25 History fumarate 28 mg-folic acid 800 mcg tablet () Patient History Medical History History of pulmonary edema Osteoarthritis Hypertension History of upper gastrointestinal bleeding 2020, no issues since Anemia LAWRENCE (dyspnea on exertion) with climbing stairs Dyslipidemia Congestive heart disease Paroxysmal atrial fibrillation History of anemia History of hyperlipidemia Surgical History History of left atrial appendage closure History of bilateral cataract extraction History of inguinal hernia repair right History of tooth extraction History of mitral valve repair History of tricuspid valve repair 2017 done in [place] Social History Smoking Status: Never smoker Second Hand Exposure: No; Do You Dip or Chew Tobacco: No; Hx Alcohol Use: No Hx Substance Use: No Preferred Language: Mohawk Communication Ability: Effective 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 Skin: Warm, dry, Head: Atraumatic Ears, nose, mouth and throat: airway patent, full CPAP facemask in place Cardiovascular: Normal peripheral perfusion Respiratory: no respiratory distress Gastrointestinal: Non distended Musculoskeletal: No deformity, clinical evidence of volume overload. Results & Data Results & Data Vital Signs (Past 12 Hours) Vital Signs Temp Pulse Pulse Resp BP Pulse Ox O2 Del Method 02/14/25 08:25 75 22 97 02/14/25 08:00 74 02/14/25 08:00 BiPAP 02/14/25 07:54 86 20 100 02/14/25 04:42 66 20 98 02/14/25 03:26 36.3 C L 70 20 113/68 100 BiPAP 02/14/25 00:50 113 H 23 95 02/14/25 00:01 36.3 C L 71 20 114/66 98 BiPAP 02/13/25 21:58 133/84 02/13/25 21:40 99 H 02/13/25 21:24 103/71 02/13/25 20:54 107 H 24 96 O2 Flow Rate FiO2 02/14/25 08:25 25 02/14/25 08:00 02/14/25 08:00 25 02/14/25 07:54 40 02/14/25 04:42 4 02/14/25 03:26 02/14/25 00:50 4 02/14/25 00:01 02/13/25 21:58 02/13/25 21:40 02/13/25 21:24 02/13/25 20:54 4 Critical Care Results & Data Vital Signs (Past 12 Hours) Vital Signs Temp Pulse Pulse Resp BP BP Pulse Ox 02/14/25 08:55 73 02/14/25 08:25 75 22 97 02/14/25 08:07 127/80 02/14/25 08:07 127/80 02/14/25 08:07 127/80 02/14/25 08:07 127/80 02/14/25 08:07 127/80 02/14/25 08:07 127/80 02/14/25 08:07 127/80 02/14/25 08:07 127/80 02/14/25 08:07 127/80 02/14/25 08:07 127/80 02/14/25 08:07 127/80 02/14/25 08:07 127/80 02/14/25 08:07 127/80 02/14/25 08:07 127/80 02/14/25 08:07 127/80 02/14/25 08:07 127/80 02/14/25 08:07 127/80 02/14/25 08:07 127/80 02/14/25 08:07 127/80 02/14/25 08:06 76 22 100 02/14/25 08:00 74 02/14/25 08:00 02/14/25 07:54 86 20 100 02/14/25 07:00 68 0 L 99 02/14/25 06:00 77 21 99 02/14/25 05:00 68 6 L 02/14/25 04:42 66 20 98 02/14/25 04:06 67 11 L 02/14/25 03:26 36.3 C L 70 20 113/68 100 02/14/25 03:06 68 13 100 02/14/25 02:00 66 16 100 02/14/25 01:00 66 14 99 02/14/25 00:50 113 H 23 95 02/14/25 00:12 75 0 L 99 02/14/25 00:01 36.3 C L 71 20 114/66 98 02/13/25 21:58 133/84 02/13/25 21:40 99 H O2 Del Method O2 Flow Rate FiO2 02/14/25 08:55 02/14/25 08:25 25 02/14/25 08:07 02/14/25 08:07 02/14/25 08:07 02/14/25 08:07 02/14/25 08:07 02/14/25 08:07 02/14/25 08:07 02/14/25 08:07 02/14/25 08:07 02/14/25 08:07 02/14/25 08:07 02/14/25 08:07 02/14/25 08:07 02/14/25 08:07 02/14/25 08:07 02/14/25 08:07 02/14/25 08:07 02/14/25 08:07 02/14/25 08:07 02/14/25 08:06 02/14/25 08:00 02/14/25 08:00 BiPAP 25 02/14/25 07:54 40 02/14/25 07:00 02/14/25 06:00 02/14/25 05:00 02/14/25 04:42 4 02/14/25 04:06 02/14/25 03:26 BiPAP 02/14/25 03:06 02/14/25 02:00 02/14/25 01:00 02/14/25 00:50 4 02/14/25 00:12 02/14/25 00:01 BiPAP 02/13/25 21:58 02/13/25 21:40 Lab & Micro Results (Past 24 Hours) RBC 2.42 M/uL (4.20-5.40) L 02/14/25 WBC 14.38 K/ul (4.8-10.8) H 02/14/25 Hgb 7.6 g/dl (12.0-16.0) L 02/14/25 Hct 24.9 % (37.0-47.0) L 02/14/25 MCV 102.9 fL (80.0-100.0) H 02/14/25 MCH 31.4 pg (25.0-34.0) 02/14/25 MCHC 30.5 g/dL (32.0-36.0) L 02/14/25 RDW Standard Deviation 63.8 fL (36.4-46.3) H 02/14/25 RDW Coefficient of Variation 16.9 % (11.5-14.5) H 02/14/25 Plt Count 239 K/uL (130-400) 02/14/25 MPV 10.0 fL (9.4-12.4) 02/14/25 Neutrophils (%) (Auto) 87.7 % 02/13/25 Lymphocytes (%) (Auto) 4.2 % 02/13/25 Monocytes # (Auto) 0.72 K/uL (0.11-0.59) H 02/13/25 Eosinophils # (Auto) 0.07 K/uL (0.00-0.50) 02/13/25 Immature Granulocyte % (Auto) 1.0 % 02/13/25 Neutrophils # (Auto) 10.19 K/uL (1.40-6.50) H 02/13/25 Lymphocytes # (Auto) 0.49 K/uL (1.20-3.40) L 02/13/25 Monocytes # (Auto) 0.72 K/uL (0.11-0.59) H 02/13/25 Eosinophils # (Auto) 0.07 K/uL (0.00-0.50) 02/13/25 Basophils # (Auto) 0.03 K/uL (0.00-0.20) 02/13/25 Immature Granulocyte # (Auto) 0.12 K/uL (0.01-0.20) 5 Red Blood Cell Morphology Unremarkable 02/13/25 Na 131 mmol/L (136-145) L 02/14/25 K 5.0 mmol/L (3.5-5.1) 02/14/25 Cl 96 mmol/L (98-107) L 02/14/25 CO2 30 mmol/L (21-32) 02/14/25 Anion Gap 5 (3-11) 02/14/25 BUN 34 mg/dl (6-23) H 02/14/25 Creatinine 1.75 mg/dl (0.6-1.2) H 02/14/25 BUN/Creatinine Ratio 19.4 (10-20) 02/14/25 Glu 157 mg/dl (70-99(Fasting)) H 02/14/25 Ca 8.9 mg/dl (8.6-10.3) 02/14/25 Mg 2.0 mg/dl (1.7-2.4) 02/14/25 06:27 Calcium Level 8.9 mg/dl (8.6-10.3) 02/14/25 06:27 Venous Blood pH 7.29 (7.36-7.41) L 02/14/25 07:29 Venous Blood Partial Pressure CO2 59 mmHg (38-50) H 02/14/25 07 :29 Venous Blood Partial Pressure O2 < 20 mmHg 02/14/25 07:29 Venous Blood HCO3 28 mmol/L 02/14/25 07:29 Venous Blood Base Excess 0.5 mEq/L 02/14/25 07:29 Venous Blood Oxygen Saturation TNP 02/14/25 07:29 Diagnostic Findings (Past 24 Hours) Chest X-Ray 02/13/25 09:15 XR chest 1V portable CLINICAL HISTORY: CHF COMPARISON STUDY: Chest radiograph and chest CT T August 02, 2024. Chest radiograph February 12, 2025 FINDINGS: Cardiomegaly, mediastinal wires and prosthetic cardiac valve are noted. There is no pneumothorax. Pulmonary edema has slightly progressed. Large bilateral pleural effusions are noted with associated airspace opacities. IMPRESSION: 1. Cardiomegaly with slight increase in pulmonary edema. 2. Large bilateral pleural effusions with associated airspace opacities which likely represent atelectasis. ACT 112: Negative or not required by law. Electronically signed by: Tenzin Lopez M.D. 02/13/2025 9:48 AM Duplex Scan Lower Extremity Artery 02/13/25 10:58 Ultrasound arterial lower extremity right Comparison: None Technique: Grayscale and color and spectral Doppler ultrasound of the arteries of the right groin Findings: Patent right common femoral and proximal superficial femoral artery with normal waveforms. In the right groin soft tissues, there is an anechoic collection measuring 1.3 x 1.0 x 0.9 cm, containing a small volume of debris. No color Doppler flow to this structure. No visualized aneurysm or pseudoaneurysm. No other soft tissue abnormality of the lower abdominal wall. Impression: Patent right common femoral and proximal superficial femoral artery. There is a small, anechoic collection with debris measuring 1.3 cm in the right groin without vascular flow. This may represent a cyst or old evolving hematoma. Electronically signed by Barrington Boyd 02-13-2025 4:19 PM Chest X-Ray 02/13/25 18:53 EXAM: Portable AP chest radiograph TECHNIQUE: AP portable radiograph of the chest was obtained. INDICATION: Shortness of breath Comparison: Chest radiograph August 02, 2024. FINDINGS: LINES and TUBES: None CARDIOVASCULAR: Cardiac silhouette is largely obscured by surrounding pleural-parenchymal process but is again significantly enlarged in size. Prosthetic cardiac valves. LUNGS/PLEURA: Large pleural fluids, new to significantly increased from previous examination. Bibasilar pulmonary densities likely represent atelectasis. No discernible pneumothorax. OSSEOUS/OTHER: No displaced acute osseous process identified. IMPRESSION: Decompensated CHF with new to significantly increased large pleural fluids bilaterally and unchanged severe cardiac silhouette enlargement. Superimposed airspace disease cannot be excluded. Electronically signed by Mauro Johnson 02-13-2025 8:[address] 02/13/25 18:56 Exam(s): CT CHEST Without Contrast EXAM: CT Chest Without Intravenous Contrast CLINICAL HISTORY: worsening hypoxia, SOB. TECHNIQUE: Axial computed tomography images of the chest without intravenous contrast. CTDI is 12 mGy and DLP is 324 mGy-cm. Automated exposure control was utilized for the study. A dose lowering technique was utilized adhering to the principles of ALARA. COMPARISON: CT Chest 08/02/2024, CXR 02-13-2025. FINDINGS: Limited by lack of contrast material. Lungs: Extensive probable compressive atelectasis in bilateral lower lobes independent left upper lobe. Moderate atelectasis in the right middle and upper lobe. No definite CHF. Pleural space: Large bilateral posterior layering pleural effusions, right greater than left. No pneumothorax. Heart: Moderate cardiomegaly. No significant pericardial effusion. No significant coronary artery calcifications. Bones/joints: Status post sternotomy. Degenerative changes of the spine. No acute fracture. Soft tissues: Unremarkable. Vasculature: Unremarkable. No thoracic aortic aneurysm. IMPRESSION: Large bilateral pleural effusions with compressive atelectasis. Otherwise no change. Electronically signed by: Jonathan Selby M.D. 02/14/25 01:33 AM Chest X-Ray 02/14/25 07:00 EXAM: XR chest 1V portable CLINICAL HISTORY: Congestive Heart Failure. TECHNIQUE: An X-ray image of the chest is obtained in AP projection. COMPARISON: 02/13/2025 FINDINGS: Pulmonary Parenchyma: Redemonstration of Bibasilar atelectatic changes. Redemonstration of bilateral moderate pleural effusion. Heart and Mediastinum: Heart size appears apparently enlarged. No mediastinal widening or masses. No hilar or mediastinal lymphadenopathy. Midline sternotomy sutures Seen status post intervention. Bony Thorax: The bony thorax appears intact without fractures or deformities. Degenerative changes seen in the visualized skeleton. Soft Tissues: Soft tissues overlying the chest wall are unremarkable. IMPRESSION: 1. Imaging appearances are likely due to pulmonary edema with bilateral moderate pleural effusion and underlying basal collapse/ consolidation. 2. No interval changes. Electronically signed by Ezequiel Amado 02-14-2025 07:59 AM I & O Totals 24 Hours 02/13/25 02/14/25 02/15/25 06:59 06:59 06:59 Intake Total 1030 / 1030 1175.94 / 1175.94 200 / 200 Output Total 850 / 850 852 / 852 Balance 180 / 180 323.94 / 323.94 200 / 200 Cumulative 02/12/25 13:12 thru 02/14/25 07:45 Intake Total 2405.94 Output Total 1702 Balance 703.94 RT Ventilator Mngmt (Last Documented) Ventilator Ordered Settings Respiratory Rate 22 02/14/25 08:25 Fraction of Inspired Oxygen 02/14/25 08:25 Ventilator - PT Measurements Respiratory Rate 22 Coding Level of Care Code 70501 CRITICAL CARE 1ST 30-74M Diagnoses Acute respiratory failure with hypoxia and hypercapnia J96.01; J96.02 Hyponatremia E87.1 DOMENICA (acute kidney injury) N17.9 S/P mitral valve replacement Z95.2 Bilateral edema of lower extremity R60.0 Anemia D64.9 Acute CHF (congestive heart failure) I50.9 Hyperglycemia R73.9 Chronic anemia D64.9 Atrial fibrillation with RVR I48.91
[2025-02-14] MEDS ORDERED: metOLazone 5 MG TABLET PO ONE (09:08)
[2025-02-14] MEDS ORDERED: FUROSEMIDE 100 MG in SODIUM CHLORIDE 0.9% 90 ML IV SCH (09:15)
[2025-02-14] MEDS: FUROSEMIDE 40 MG/4 ML VIAL IV ONE (09:56)
--- NOTE | 2025-02-14 10:09 | Nephrology Progress Note ---
Date of Service February 14, 2025 Assessment & Plan Admission and Anticipated Discharge Date Admission Date: February 12, 2025 Subjective Assessment & Plan (1) DOMENICA (acute kidney injury): Creat is currently 1.4. She had DOMENICA during recent admission at [facility] ( peak creat 3.3 on 02/06/25 but no dialysis--sec to ATN/Severe hemolysis) and her diuretics were held. On discharge on 02/10/2025 creatinine was downtrending but still 1.8. before all this Creat baseline was 0.5. So current creat of 1.7 is still better than her. But creat has gone up a bit from Admission recent creat at discharge from [facility]. But now has Pulm overload--not surprising given recent DOMENICA/cardiac events and Diuretics held. Not much response with iv lasix so far. lasix 100 mg iv + metolazone.may need Dialysis. It appears the Pulm edema is triggered mainly by cardiac issues. Overall she actually appears dry and volume depleted. No need of workup for DOMENICA--Dx is obvious . hgb is quite low so can consider PRBC (2) Acute CHF (congestive heart failure): Does have a lot of pl eff b/l + Pulm edema. After discussion with Transfer center being transferred to [facility] for more tertiary care. She had Complex Cardiac issues recently. (3) Atrial fibrillation with RVR: (4) Hyponatremia: Sec to Hypervolemia from CHF/Overload. Needs good diuresis to get this up. Case complexity high. 62 mins spent in Detailed discussion with ICU, Primary team and Transfer center. PHYSICAL EXAMINATION: GENERAL: Awake, alert, frail and dyspneic NECK: Non-tender. Supple. RESPIRATORY: Increased respiratory effort. Diminished BD b/l. CARDIAC: Normal rate. Normal rhythm. Systolic murmur. Moderate JVD. GI: Soft, non-distended. No tenderness to palpation. No rebound or guarding. No masses. MUSCULOSKELETAL: Atraumatic. Chest examination reveals healing sternal incision without signs of bleeding. Left low anterior chest tube drain site is CDI. Examination of the right lower chest tube drain site reveals some scant serosanguineous drainage. The back is kyphotic on inspection without obvious abnormality. There is no CVA tenderness to palpation. No joint edema. LOWER EXTREMITIES:No edema. NEURO: Normal sensorium. No sensory or motor deficits noted. SKIN: No rash or jaundice noted. Results & Data Vital Signs (Past 12 Hours) Vital Signs Temp Pulse Pulse Resp BP BP Pulse Ox 02/14/25 08:55 73 02/14/25 08:25 75 22 97 02/14/25 08:07 127/80 02/14/25 08:07 127/80 02/14/25 08:07 127/80 02/14/25 08:07 127/80 02/14/25 08:07 127/80 02/14/25 08:07 127/80 02/14/25 08:07 127/80 02/14/25 08:07 127/80 02/14/25 08:07 127/80 02/14/25 08:07 127/80 02/14/25 08:07 127/80 02/14/25 08:07 127/80 02/14/25 08:07 127/80 02/14/25 08:07 127/80 02/14/25 08:07 127/80 02/14/25 08:07 127/80 02/14/25 08:07 127/80 02/14/25 08:07 127/80 02/14/25 08:07 127/80 02/14/25 08:06 76 22 100 02/14/25 08:00 74 02/14/25 08:00 02/14/25 07:54 86 20 100 02/14/25 07:00 68 0 L 99 02/14/25 06:00 77 21 99 02/14/25 05:00 68 6 L 02/14/25 04:42 66 20 98 02/14/25 04:06 67 11 L 02/14/25 03:26 36.3 C L 70 20 113/68 100 02/14/25 03:06 68 13 100 02/14/25 02:00 66 16 100 02/14/25 01:00 66 14 99 02/14/25 00:50 113 H 23 95 02/14/25 00:12 75 0 L 99 02/14/25 00:01 36.3 C L 71 20 114/66 98 O2 Del Method O2 Flow Rate FiO2 02/14/25 08:55 02/14/25 08:25 25 02/14/25 08:07 02/14/25 08:07 02/14/25 08:07 02/14/25 08:07 02/14/25 08:07 02/14/25 08:07 02/14/25 08:07 02/14/25 08:07 02/14/25 08:07 02/14/25 08:07 02/14/25 08:07 02/14/25 08:07 02/14/25 08:07 02/14/25 08:07 02/14/25 08:07 02/14/25 08:07 02/14/25 08:07 02/14/25 08:07 02/14/25 08:07 02/14/25 08:06 02/14/25 08:00 02/14/25 08:00 BiPAP 02/14/25 07:54 40 02/14/25 07:00 02/14/25 06:00 02/14/25 05:00 02/14/25 04:42 4 02/14/25 04:06 02/14/25 03:26 BiPAP 02/14/25 03:06 02/14/25 02:00 02/14/25 01:00 02/14/25 00:50 4 02/14/25 00:12 02/14/25 00:01 BiPAP
[2025-02-14 11:05] VITALS: BP 131/94; PULSE 70
--- NOTE | 2025-02-14 12:30 | Electrocardiogram Report ---
Test Reason : Blood Pressure : */* mmHG Vent. Rate : 73 BPM Atrial Rate : 75 BPM P-R Int : * ms QRS Dur : 90 ms QT Int : 432 ms P-R-T Axes : * 55 67 degrees QTcB Int : 475 ms Sinus rhythm Diffuse Nonspecific T wave abnormality Abnormal ECG When compared with ECG of 13-Feb-2025 23:56, Premature atrial complexes no longer present Nonspecific ST abnormality no longer present Confirmed by Montana Kincaid ([id number]) on 02/14/2025 12:30:07 PM Referred By: REFERRED SELF Confirmed By: Montana Kincaid
--- NOTE | 2025-02-14 16:21 | Discharge Summary ---
Date of Service February 14, 2025 Admission HPI Per Admitting Provider Patient is 74 year old female with PMH myxomatous mitral valve disease, severe mitral regurgitation s/p mitral valve repair, tricuspid valve repair, biatrial Maze procedure and left atrial appendage ligation 11/07/2017, HTN, dyslipidemia, history of QT prolongation, possible history PAF s/p left atrial appendage ligation, history of GI bleed 2020, s/p mitral valve replacement presented to ER with c/o bleeding from chest tube site today. Per chart review patient had hospitalization at [facility] 01/27/2025-02/10/2025 and had complicated hospital course. Underwent TMVR on 01/29/2025, following procedure had perivalvular leak and began having hemolysis requiring daily blood transfusions. Then underwent AVR/MVR on 02/02/[address] House and also had atrial septal defect closed. Post op developed a junctional rhythm required pacing. EP evaluated and recommended avoidance of negative chronotropic medications. Her metoprolol was ultimately resumed. He also developed thrombocytopenia and her subcu heparin and aspirin were held. Platelet levels improved and her aspirin and Eliquis was resumed. Patient also had DOMENICA and her diuretics were held. On discharge on 02/10/2025 creatinine of 1.8. Upon discharge her home diuretics were not resumed. today noticed bleeding that soaked through 3 dressing changes from her right chest wall at site of prior chest tube. Daughter reports patient was previously was on Lasix 20mg BID prior to recent surgery. yesterday noticed BLE edema. Today with worsening BLE edema. Today feeling SOB. Has been having discomfort to chest since her cardiac surgery, worse at sternum region. She has been taking Tylenol for discomfort. was prescribed Tramadol but did not get it filled because she took it once in hospital and it made her "loopy". Since hospitalization has been feeling tired and generally weak. had speech evaluation during her recent hospitalization and was able to tolerate soft diet upon discharge. Patient reports needs to take pills with applesauce. Denies fever/chills, diaphoresis, N/V/D/C, METZ, dizziness, syncope, vision changes, neck pain, palpitations, cough, rhinorrhea, abdominal pain, paresthesias, rashes, urinary symptoms. Admission Exam Per Admitting Provider GENERAL APPEARANCE: AxOx4, frail and thin elderly woman. HEENT: NC, AT. MMM. EOMI, clear conjunctiva, oropharynx clear. NECK: thin, bandage on right neck from prior central line, no strikethrough. HEART: irregularly irregular LUNGS: no crackles, diminished bilaterally in bases ABDOMEN: Soft, fading ecchymosis on lower abdomen, slightly protuberant, but nontender. right groin incision from procedure clean, well approximated BACK: No CVAT, no obvious deformity. EXTREMITIES: bilateral pedal and ankle edema NEUROLOGICAL: Grossly nonfocal. Alert and oriented, moving all 4 extremities. CN not formally tested but appear grossly intact. Skin: Warm and dry without any rash. vertical sternal incision well approximated and without drainage, bandage under right breast CDI, dried blood noted under maxillary folds bilaterally Principal Diagnosis Acute respiratory failure with hypoxia and hypercapnia Volume Overload Bilateral Pleural Effusion Recent Mitral/Aortic Valve repair Afib RVR Acute heart failure with mildly reduced EF Acute Kidney Injury Chronic hyponatremia Anemia Discharge Data Allergies Allergy/AdvReac Type Severity Reaction Status Date / Time famotidine AdvReac Severe Gastrointestinal Verified 02/12/25 16:07 Upset pantoprazole AdvReac Severe Gastrointestinal Verified 02/12/25 16:07 Upset prednisone AdvReac Severe Cramping Verified 02/12/25 16:07 of the Muscles [id number] Reductase AdvReac Intermediate MUSCLE Verified 02/12/25 16:07 Inhibitor PAIN AND CRAMPING Consultations 02/12/25 16:51 Consult Cardiology Routine 02/13/25 10:57 Consult Nephrology Routine 02/13/25 19:05 Consult Pulmonology Routine 02/14/25 08:17 Consult Lugger Routine Procedures Performed Laboratory Results WBC 14.38 K/ul (4.8-10.8) H 02/14/25 06:27 RBC 2.42 M/uL (4.20-5.40) L 02/14/25 06:27 Hgb 7.6 g/dl (12.0-16.0) L 02/14/25 06:27 POC Hgb 8.2 g/dl (12.0-16.0) L 02/13/25 12:09 Hct 24.9 % (37.0-47.0) L 02/14/25 06:27 POC Hct 24 % (37-47) L 02/13/25 12:09 MCV 102.9 fL (80.0-100.0) H 02/14/25 06:27 MCH 31.4 pg (25.0-34.0) 02/14/25 06: MCHC 30.5 g/dL (32.0-36.0) L 02/14/25 06:27 RDW Std Deviation 63.8 fL (36.4-46.3) H 02/14/25 06: RDW Coeff of Nalini 16.9 % (11.5-14.5) H 02/14/25 06:27 Plt Count 239 K/uL (130-400) 02/14/25 06: MPV 10.0 fL (9.4-12.4) 02/14/25 06: Immature Gran % (Auto) 1.0 % 02/13/25 19:32 Neut % (Auto) 87.7 % 02/13/25 19:32 Lymph % (Auto) 4.2 % 02/13/25 19:32 [place] % (Auto) 6.2 % 02/13/25 19:32 Eos % (Auto) 0.6 % 02/13/25 19:32 Baso % (Auto) 0.3 % 02/13/25 19:32 Neut # (Auto) 10.19 K/uL (1.40-6.50) H 02/13/25 19:32 Lymph # (Auto) 0.49 K/uL (1.20-3.40) L 02/13/25 19:32 [place] # (Auto) 0.72 K/uL (0.11-0.59) H 02/13/25 19:32 Eos # (Auto) 0.07 K/uL (0.00-0.50) 02/13/25 19:32 Baso # (Auto) 0.03 K/uL (0.00-0.20) 02/13/25 19:32 Immature Gran # (Auto) 0.12 K/uL (0.01-0.20) 02/13/25 19:32 RBC Morphology Unremarkable 02/13/25 19:32 PT 11.6 Seconds (9.0-12.0) 02/12/25 Unknown INR 1.1 (0.9-1.1) 02/12/25 Unknown POC pH 7.33 (7.35-7.45) L 02/13/25 12:09 POC pCO2 50 mmHg (35-46) H 02/13/25 12:09 POC pO2 70 mmHg (80-95) L 02/13/25 12:09 POC HCO3 26 dorothy/L (19-24) H 02/13/25 12:09 POC Total CO2 28 mmol/L (24-31) 02/13/25 12:09 POC Base Excess 0.0 dorothy/L (-9-1.8) 02/13/25 12:09 POC ABG O2 Sat 92.0 % (90-95) 02/13/25 12:09 VBG pH 7.29 (7.36-7.41) L 02/14/25 07:29 VBG pCO2 59 mmHg (38-50) H 02/14/25 07:29 VBG pO2 < 20 mmHg 02/14/25 07:29 VBG HCO3 28 mmol/L 02/14/25 07:29 VBG O2 Saturation TNP 02/14/25 07:29 VBG Base Excess 0.5 mEq/L 02/14/25 07:29 POC Sodium 130 mmol/L (135-144) L 02/13/25 12:09 Sodium 131 mmol/L (136-145) L 02/14/25 06:27 POC Potassium 4.7 mmol/L (3.3-5.0) 02/13/25 12:09 Potassium 5.0 mmol/L (3.5-5.1) 02/14/25 06:27 POC Chloride 98 mmol/L (101-112) L 02/12/25 13:56 Chloride 96 mmol/L (98-107) L 02/14/25 06:27 Carbon Dioxide 30 mmol/L (21-32) 02/14/25 06:27 POC Total CO2 23 mmol/L (24-31) L 02/12/25 13:56 Anion Gap 5 (3-11) 02/14/25 06:27 POC Anion Gap 15.0 mmol/L (16-25) L 02/12/25 13:56 POC BUN 31 mg/dl (7-18) H 02/12/25 13:56 BUN 34 mg/dl (6-23) H 02/14/25 06:27 Creatinine 1.75 mg/dl (0.6-1.2) H 02/14/25 06:27 POC Creatinine 1.6 mg/dl (0.6-1.3) H 02/12/25 13:56 Est Cr Clr Drug Dosing 24.7 ml/min 02/14/25 06:27 eGFR 30.39 02/14/25 06:27 BUN/Creatinine Ratio 19.4 (10-20) 02/14/25 06:27 Glucose 157 mg/dl (70-99(Fasting)) H 02/14/25 06:27 POC Glucose 166 mg/dl (70-99) H 02/13/25 18:38 POC Glucose (other) 157 mg/dl (70-99) H 02/12/25 13:56 Calcium 8.9 mg/dl (8.6-10.3) 02/14/25 06:27 POC Ioniz Calcium Femi 1.08 mmol/l (1.12-1.32) L 02/12/25 13:56 Magnesium 2.0 mg/dl (1.7-2.4) 02/14/25 06:27 Iron 42 mcg/dl (35-150) 02/14/25 06:27 Transferrin 156 mg/dl (200-360) L 02/14/25 06:27 Ferritin 1199.2 ng/ml (8-388) H 02/14/25 06:27 Total Bilirubin 0.8 mg/dl (0.2-1.0) 02/12/25 Unknown AST 30 U/L (13-39) 02/12/25 Unknown ALT 10 U/L (7-52) 02/12/25 Unknown Alkaline Phosphatase 96 U/L (34-104) 02/12/25 Unknown Troponin I High Sens 272.6 pg/ml (0-14) H* 02/12/25 Unknown B-Natriuretic Peptide 870 pg/ml (0-100) H 02/12/25 Unknown Total Protein 7.6 gm/dl (6.0-8.3) 02/12/25 Unknown Albumin 3.5 gm/dl (3.4-5.0) 02/12/25 Unknown Globulin 4.1 gm/dl (2.5-4.0) H 02/12/25 Unknown Albumin/Globulin Ratio 0.9 (0.9-2) 02/12/25 Unknown Vitamin B12 > 1500 pg/ml (180-914) H 02/14/25 06:27 Folate > 22.30 ng/ml (>5.38) 02/14/25 06:27 TSH 1.868 uIu/ml (0.300-4.500) 02/12/25 Unknown Urine Color Yellow 02/12/25 14:40 Urine Appearance Clear (Clear) 02/12/25 14:40 Urine pH 6.0 (4.5-7.5) 02/12/25 14:40 Ur Specific [place] 1.008 (1.000-1.030) 02/12/25 14:40 Urine Protein 1+ (Negative) H 02/12/25 14:40 Urine Glucose (UA) Negative (Negative) 02/12/25 14:40 Urine Ketones Negative (Negative) 02/12/25 14:40 Urine Blood 2+ (Negative) H 02/12/25 14:40 Urine Nitrite Negative (Negative) 02/12/25 14:40 Urine Bilirubin Negative (Negative) 02/12/25 14:40 Urine Urobilinogen Negative (Negative) 02/12/25 14:40 Ur Leukocyte Esterase Negative (Negative) 02/12/25 14:40 Urine WBC (Auto) 0-5 /hpf (0-5) 02/12/25 14:40 Urine RBC (Auto) 3-5 /hpf (0-2) H 02/12/25 14:40 U Hyaline Cast (Auto) 3-5 /lpf (0-2) H 02/12/25 14:40 U Epithel Cells (Auto) 0-2 /hpf (0-2) 02/12/25 14:40 Urine Bacteria (Auto) None Seen (None Seen) 02/12/25 14:40 Blood Type O Positive 02/12/25 14:13 Antibody Screen NEGATIVE 02/12/25 14:13 Crossmatch See Detail 02/12/25 14:13 Impressions Duplex Scan Lower Extremity Artery 02/13/25 10:58 Ultrasound arterial lower extremity right Comparison: None Technique: Grayscale and color and spectral Doppler ultrasound of the arteries of the right groin Findings: Patent right common femoral and proximal superficial femoral artery with normal waveforms. In the right groin soft tissues, there is an anechoic collection measuring 1.3 x 1.0 x 0.9 cm, containing a small volume of debris. No color Doppler flow to this structure. No visualized aneurysm or pseudoaneurysm. No other soft tissue abnormality of the lower abdominal wall. Impression: Patent right common femoral and proximal superficial femoral artery. There is a small, anechoic collection with debris measuring 1.3 cm in the right groin without vascular flow. This may represent a cyst or old evolving hematoma. Electronically signed by Barrington Boyd 02-13-2025 4:[address] 02/13/25 18:56 Exam(s): CT CHEST Without Contrast EXAM: CT Chest Without Intravenous Contrast CLINICAL HISTORY: worsening hypoxia, SOB. TECHNIQUE: Axial computed tomography images of the chest without intravenous contrast. CTDI is 12 mGy and DLP is 324 mGy-cm. Automated exposure control was utilized for the study. A dose lowering technique was utilized adhering to the principles of ALARA. COMPARISON: CT Chest 08/02/2024, CXR 02-13-2025. FINDINGS: Limited by lack of contrast material. Lungs: Extensive probable compressive atelectasis in bilateral lower lobes independent left upper lobe. Moderate atelectasis in the right middle and upper lobe. No definite CHF. Pleural space: Large bilateral posterior layering pleural effusions, right greater than left. No pneumothorax. Heart: Moderate cardiomegaly. No significant pericardial effusion. No significant coronary artery calcifications. Bones/joints: Status post sternotomy. Degenerative changes of the spine. No acute fracture. Soft tissues: Unremarkable. Vasculature: Unremarkable. No thoracic aortic aneurysm. IMPRESSION: Large bilateral pleural effusions with compressive atelectasis. Otherwise no change. Electronically signed by: Jonathan Selby M.D. 02/14/25 01:33 AM Chest X-Ray 02/14/25 07:00 EXAM: XR chest 1V portable CLINICAL HISTORY: Congestive Heart Failure. TECHNIQUE: An X-ray image of the chest is obtained in AP projection. COMPARISON: 02/13/2025 FINDINGS: Pulmonary Parenchyma: Redemonstration of Bibasilar atelectatic changes. Redemonstration of bilateral moderate pleural effusion. Heart and Mediastinum: Heart size appears apparently enlarged. No mediastinal widening or masses. No hilar or mediastinal lymphadenopathy. Midline sternotomy sutures Seen status post intervention. Bony Thorax: The bony thorax appears intact without fractures or deformities. Degenerative changes seen in the visualized skeleton. Soft Tissues: Soft tissues overlying the chest wall are unremarkable. IMPRESSION: 1. Imaging appearances are likely due to pulmonary edema with bilateral moderate pleural effusion and underlying basal collapse/ consolidation. 2. No interval changes. Electronically signed by Ezequiel Amado 02-14-2025 07:59 AM Ordered Studies 02/13/25 10:58 US arterial duplex LE RT Routine 02/13/25 18:56 CT chest diagnostic wo con Urgent 02/14/25 08:58 US point of care ultrasound Routine Hospital Course (1) Volume overload: (2) S/P mitral valve replacement: (3) Paroxysmal atrial fibrillation: (4) History of anemia: (5) History of hyperlipidemia: Patient is 74 year old female with PMH myxomatous mitral valve disease, severe mitral regurgitation s/p mitral valve repair, tricuspid valve repair, biatrial Maze procedure and left atrial appendage ligation 11/07/2017, HTN, dyslipidemia, history of QT prolongation, possible history PAF s/p left atrial appendage ligation, history of GI bleed 2020, s/p mitral valve replacement presented to ER with c/o bleeding from chest tube site today as well as BLE edema and SOB x 1 day. Acute on chronic respiratory failure with hypoxia and hypercarbia Acute heart failure with mildly reduced EF--POA Valvular heart disease Pulmonary edema, pleural effusion secondary to above H/O myxomatous mitral valve disease H/O Biatrial maze procedure and left atrial appendage ligation S/P TMVR on 01/29/2025, following procedure had perivalvular leak and began having hemolysis requiring daily blood transfusions. Then underwent AVR/MVR on 02/02/[address] House and also had atrial septal defect closed. --CXR:Cardiomegaly with slight increase in pulmonary edema. Large bilateral pleural effusions with associated airspace opacities which likely represent atelectasis. --BNP: 870 --Limited echo: EF 40 to 45%. Mild global hypokinesis of left ventricle. Severe concentric LVH. Bioprosthetic arctic valve, without stenosis or regurgitation. Bioprosthetic mitral valve with normal function. No significant mitral regurgitation or stenosis. Continue IV Lasix 40 mg twice a day>> patient was started on Lasix drip and metolazone Monitor volume status, I's and O's, daily weight, electrolytes and renal function Appreciate cardiology, nephrology input Continue metoprolol Patient's respiratory status deteriorated overnight and CT suggestive of significant bilateral pleural effusion Patient was placed on BiPAP overnight requiring 100% FiO2 Continue BiPAP for now Appreciate critical care input: given worsening patient's condition and comorbidities--failure of conservative management, need for dialysis/continues renal replacement therapy, possible need for bilateral thoracentesis and CT surgery evaluation patient is thought to be best served at a tertiary care facility. at [facility] accepted the patient for further care Patient will be transferred to [facility] for further management Patient and patient's family understands and agrees with the plan. A-fib RVR Echo as above Normal TSH Started on amiodarone drip Continue metoprolol On Eliquis for anticoagulation Appreciate cardiology input Elevated troponin Likely demand ischemia secondary to above H/O statin intolerance Patient denies any chest pain Echo pending Continue aspirin, metoprolol Acute kidney injury Creatinine 1.7 today Creatinine peaked at 3.3 on 02/06/2025 while at [facility]. Cr on 02/10/2025 was 1.8 Monitor renal functions Appreciate nephrology input Avoid nephrotoxic agents as able Hyperkalemia Likely due to renal failure Resolved Monitor electrolytes Chronic hyponatremia Volume overload likely contributing as well Sodium 131 today Monitor Bleeding incision site from prior chest tube Currently chest incisions with dry dressings in place Monitor for any bleeding issues Anemia--likely multifactorial H/O GI bleed Recent required PRBC transfusions at [facility] Hgb:Was 10 on discharge on 02/10/2025, had required PRBC transfusion at [facility]. Monitor H&H and transfuse as needed Blood consent obtained Anemia workup reviewed Hemoglobin 7.6 today Consider transfusing 1 unit PRBC if volume status permits DVT Px Eliquis Code Status Full Code Disposition [facility] Total Time Total Time Spent Total Time Spent (In Minutes): 65 minutes Discharge Plan Discharge Items Patient Disposition: Transfer Acute Care Hospital Reason For Visit: VOLUME OVERLOAD Discharge Diagnosis: Acute respiratory failure with hypoxia and hypercapnia Volume Overload Bilateral Pleural Effusion Recent Mitral/Aortic Valve repair Afib RVR Acute heart failure with mildly reduced EF Acute Kidney Injury Chronic hyponatremia Anemia Activity: As commented below Sexual Activity: Wait until after follow-up appointment Non-emergency contact: Primary Care Provider, Surgeon, Research Investigator and Nephrol ogist Call non-emergency contact if: you have any medication questions, your symptoms worsen, your pain is concerning for you and you have a fever Follow-up/Referrals: Zuleima Garcia MD [Primary Care Provider] - Dietitian Info: NPO currently Diet: Heart Healthy Add Attending Provider Instructions: Follow up with and your CT surgeon in [facility] for further management Seek immediate medical attention if your symptoms reoccur or worsen Please review medication list provided on discharge for any medication changes as instructed. Please call if you have any questions or problems. You can reach a [facility] hospitalist on duty at [facility] 24 hours a day by calling [phone] [facility] [employer] Machine Operator Provider Instructions: Date of Service: February 14, 2025 Current Inpatient Medications Acetaminophen (Acetaminophen 500 Mg Tab) 1,000 mg PO Q8H JAIME Stop: 03/14/25 18:11 Last Admin: 02/14/25 10:03 Dose: Not Given Apixaban (Apixaban 5 Mg Tablet) 5 mg PO BID JAIME Stop: 03/14/25 20:59 Last Admin: 02/13/25 21:18 Dose: 5 mg Aspirin (Aspirin 81 Mg Chew) 81 mg PO DAILY JAIME Stop: 03/15/25 08:59 Last Admin: 02/13/25 08:45 Dose: 81 mg Cyanocobalamin (Cyanocobalamin (B-12) 500 Mcg Tablet) 500 mcg PO QAM JAIME Stop: 03/15/25 08:59 Last Admin: 02/14/25 10:02 Dose: Not Given Docusate Sodium (Docusate Sodium 100 Mg Cap) 100 mg PO BID JAIME Stop: 03/15/25 16:49 Last Admin: 02/14/25 10:02 Dose: Not Given Famotidine (Famotidine 20 Mg Tab) 20 mg PO DAILY JAIME Stop: 03/15/25 08:59 Last Admin: 02/14/25 10:02 Dose: Not Given Ferrous Sulfate (Ferrous Sulfate 325 Mg Tab) 325 mg PO QAM JAIME Stop: 03/15/25 08:59 Last Admin: 02/14/25 10:02 Dose: Not Given Furosemide (Furosemide 40 Mg/4 Ml Vial) 40 mg IV Q12 JAIME Stop: 03/15/25 12:29 Last Admin: 02/13/25 21:22 Dose: 40 mg Hydrocortisone (Hydrocortisone Hc 2.5% Crm 30gm Tube) 1 appln EXT Q8H PRN PRN Reason: Hemorrhoids Stop: 03/15/25 18:25 Amiodarone HCl/Dextrose (Nexterone / D5w) 360 mg in 200 mls @ 16.667 mls/hr IV .Q12H JAIME Stop: 03/15/25 20:19 Last Admin: 02/14/25 08:14 Dose: 0.5 mg/min, 16.7 mls/hr Acetaminophen (Ofirmev) 1,000 mg in 100 mls @ 400 mls/hr IV Q8H PRN PRN Reason: pain/fever Stop: 02/16/25 21:20 Last Infusion: 02/13/25 21:58 Dose: Infused Furosemide 100 mg/ Sodium (Chloride) 100 mls @ 1 mls/hr IV .Q24H JAIME Stop: 03/16/25 09:14 Lactobacillus Acidophilus (Advanced Probiotic 625 Mg Capsule) 625 mg PO DAILY JAIME Stop: 03/15/25 08:59 Last Admin: 02/14/25 10:02 Dose: Not Given Levalbuterol HCl (Levalbuterol Hcl 0.63 Mg/3 Ml Neb) 0.63 mg NEB Q6H PRN; Protocol PRN Reason: Shortness Of Breath Or Wheezing Stop: 03/15/25 09:14 Last Admin: 02/13/25 15:35 Dose: 0.63 mg Melatonin (Melatonin 3 Mg Tab) 6 mg PO HS PRN PRN Reason: Sleep Stop: 03/14/25 20:45 Metoprolol Succinate (Metoprolol Succ 25mg Ext Rel Tab) 25 mg PO QAM JAIME Stop: 03/15/25 08:59 Last Admin: 02/14/25 10:02 Dose: Not Given Metoprolol Tartrate (Metoprolol Tartrate 1 Mg/Ml Vial) 2.5 mg IV Q6 PRN PRN Reason: Tachycardia HR>110 Stop: 03/15/25 11:59 Last Admin: 02/13/25 11:55 Dose: 2.5 mg Polyethylene Glycol (Polyethylene (Miralax) 17 Gm Pack) 17 gm PO DAILY PRN PRN Reason: Constipation Stop: 03/14/25 18:11 Last Admin: 02/13/25 17:57 Dose: 17 gm Prenat Multivit/[place]/Iron/Folic Ac ( Vitamin 1 Tab) 1 tab PO QAM JAIME Stop: 03/15/25 08:59 Last Admin: 02/14/25 10:02 Dose: Not Given Pending Studies at Discharge: No Stand-Alone Forms: My [facility] Skilled Items Patient informed of condition?: Yes DNR: No Discharge Level of Care: Other Communicable Disease: No Discharge Prognosis: Deteriorating Lines: Peripheral IV Urinary Catheter: No Medications and DC Order Prescriptions: Continued cyanocobalamin (vitamin B-12) [Vitamin B-12] 500 mcg Tablet 500 mcg PO QAM ferrous sulfate 325 mg (65 mg iron) Tablet,Delayed Release (Dr/Ec) 325 mg PO QAM Qty: 30 1RF Eliquis 5 mg Tablet 5 mg PO BID Qty: 60 2RF Advanced Probiotic 625 mg (10 billion cell) Capsule 1 cap PO DAILY Qty: 30 0RF acetaminophen [Tylenol] 325 mg Tablet 975 mg PO Q8H PRN (Reason: Pain) acetaminophen [Tylenol] 325 mg Tablet 325 mg PO HS PRN (Reason: WITH TYLENOL PM FOR SLEEP/PAIN) diphenhydramine-acetaminophen [Tylenol PM Extra Strength] 25-500 mg Tablet 1 tab PO HS PRN (Reason: SLEEP/PAIN) famotidine 20 mg tablet 20 mg PO DAILY Rx Instructions: PER PT'S DAUGHTER "NOT TAKING". aspirin 81 mg Tablet,Chewable 81 mg PO DAILY metoprolol succinate 25 mg tablet extended release 24 hr 25 mg PO QAM Caltrate 600-D Plus Minerals 600 mg calcium- 800 unit-40 mg Tablet,Chewable 1 tab PO DAILY magnesium sulfate 100 mg Capsule 100 mg PO QPM 28-800 mg-mcg Tablet 1 tab PO QAM Discharge Orders: Discharge Order (Routine); Ordered 02/14/25 Ordered By: Pete Rodrigues Admission Data Admit Date/Time: 02/12/25 16:45 Attending Provider: Pete Rodrigues Admit Provider: Ailyn Escalona Primary Care Provider: Zuleima Garcia Other Providers: Patrick,Home Care; Antonio Garber; Radha Barakat; Francisco Solorzano; Tanner Calvillo; Wendy Moreno; Maria D Esparza; Higinio Harrell; Dmitri Johnson Other Interventions: Discharge Summary Assessment (RN) Last Done: 02/14/25 11:04
--- NOTE | 2025-02-15 14:02 | Electrocardiogram Report ---
Test Reason : Blood Pressure : */* mmHG Vent. Rate : 70 BPM Atrial Rate : 70 BPM P-R Int : 208 ms QRS Dur : 88 ms QT Int : 442 ms P-R-T Axes : 66 44 34 degrees QTcB Int : 477 ms Sinus rhythm with Premature atrial complexes Nonspecific ST and T wave abnormality Abnormal ECG When compared with ECG of 13-Feb-2025 06:11, Sinus rhythm has replaced Atrial fibrillation Vent. rate has decreased by 49 bpm Confirmed by Binh Young ([id number]) on 02/15/2025 2:02:31 PM Referred By: REFERRED SELF Confirmed By: Binh Young
== END 2025-02-14 11:04 | disposition short-term general hospital (02) | DRG 291 ==
LOC: ED 13:12 → 2S 16:45 → SUATTDRO 16:45 → 2S 17:50 → 1E 02-14 07:50